=== PATIENT | female | born 1935 | race Caucasian/White ===

== ENCOUNTER → 2017-11-28 11:34 | Outpatient (CLI) | payer MEDICARE, OTHER, SELFPAY ==
[2017-11-28 13:33] LABS: Vitamin D,25 Hydroxy 46.7 ng/mL (29.95-100.01)
[2017-11-28 13:34] LABS: PTHIN 43.1 pg/mL (18.4-80.1)
[2017-11-28 13:38] LABS: ALB/GLOB Ratio 0.9 RATIO (0.9-2.4); AST(SGOT) 30 U/L (15-37); Alanine Aminotransfer ALT/SGPT 23 U/L (13-56); Albumin, Serum 3.2 g/dL (3.2-5.0); Alkaline Phosphatase 79 U/L (45-117); Anion Gap 6 (5-15); BUN 12 mg/dL (7-18); BUN/Creat Ratio 17.2 RATIO (10-20); Calcium,Total 9.1 mg/dL (8.5-10.1); Chloride 105 mmol/L (98-107); Cholesterol 234 mg/dL (200); EST Glomerular Filtration Rate 86 mL/min (>60); Est Glom Filt Rate - Afr Amer 104 mL/min (>60); Globulin 3.7 g/dL (2.2-4.2); Glucose 77 mg/dL (74-106); High Density Lipoprotein 58 mg/dL; Potassium 3.9 mmol/L (3.5-5.1); Protein, Total 6.9 g/dL (6.4-8.2); Sodium Level 143 mmol/L (136-145); Thyroid Stim Hormone (TSH) 1.35 uIU/mL (0.358-3.74); Triglycerides 243 mg/dL; Very Low Density Lipoprotein 49 mg/dL (5-40)
== END ==
PROVIDERS: Family Provider Family Medicine; PCP Family Medicine; Visit Provider Family Medicine
DX: E21.3 Hyperparathyroidism, unspecified (principal); E55.9 Vitamin D deficiency, unspecified; E78.5 Hyperlipidemia, unspecified; E03.9 Hypothyroidism, unspecified
CPT/HCPCS: 36415; 80053; 80061; 82306; 83970; 84443

== ENCOUNTER → 2018-04-25 10:45 | Outpatient (CLI) | payer MEDICARE, OTHER, SELFPAY ==
[2018-04-09 13:10] VITALS: BMI 34.0
--- NOTE | 2018-04-25 10:47 | ECHOCS_ITS ---
Reason For Study: CHF Procedure This was a 2D Doppler, Color Flow transthoracic echocardiogram. Techncially difficult study due to patient body habitus. Exam performed in department. Left Ventricle Normal LV size. Left ventricular systolic function is normal. The estimated ejection fraction is 65 %. Stage 1 diastolic dysfunction. No regional wall motion abnormalities noted. Right Ventricle Normal RV size. Normal systolic function. Atria Normal left atrium. Normal right atrium. Mitral Valve Normal mitral valve. Tricuspid Valve Normal tricuspid valve. Mild (1+) tricuspid valve insufficiency. Pulmonary artery systolic pressure is 42 mmHg. Aortic Valve Trisinus/trileaflet aortic valve. Peak aortic valve gradient 40 mmHg. Mean aortic valve gradient 21 mmHg. Mild to moderate aortic stenosis. Calculated aortic valve area (continuity equation) is 1.0 cm2. Bioprosthetic aortic valve. Pulmonic Valve Normal pulmonic valve. Great Vessels Normal aortic root. The pulmonary artery is normal size. Normal inferior vena cava. Pericardium/Pleural No pericardial effusion. Medication 22 gauge I.V. with prn adaptor inserted into right arm. Diluted definity 3ml given slow IV push to enhance endocardial definition. MMode/2D Measurements & Calculations LVIDd: 3.8 cm IVSd: 1.1 cm LVOT diam: 2.0 cm LVIDs: 2.8 cm LVPWd: 0.54 cm FS: 25.0 % LVOT area: 3.2 cm2 Ao root diam: 3.2 cm ACS: 1.0 cm Time Measurements MV dec time: 0.25 sec Doppler Measurements & Calculations MV E max gaudencio: 90.6 cm/sec Lat Peak E' Gaudencio: 5.1 cm/sec Med Peak E' Gaudencio: 5.7 cm/sec MV A max gaudencio: 109.2 cm/sec E/E' lat: 17.8 E/E' med: 15.8 MV E/A: 0.83 MV V2 max: 122.0 cm/sec MV P1/2t max gaudencio: 104.9 cm/sec Ao V2 max: 314.7 cm/sec MV max P.0 mmHg MV P1/2t: 76.3 msec Ao max P.6 mmHg MV V2 mean: 68.7 cm/sec Ao V2 mean: 216.0 cm/sec MV mean P.2 mmHg MV dec slope: 402.7 cm/sec2 Ao mean P.1 mmHg MV V2 VTI: 35.3 cm MVA(P1/2t): 2.9 cm2 Ao V2 VTI: 71.5 cm MVA(VTI): 2.2 cm2 VICTORIANO(I,D): 1.1 cm2 VICTORIANO(V,D): 1.0 cm2 LV V1 max: 100.3 cm/sec SV(LVOT): 76.3 ml PA V2 max: 74.9 cm/sec LV V1 max P.0 mmHg LV V1 mean P.9 mmHg LV V1 mean: 62.4 cm/sec LV V1 VTI: 23.8 cm TR max gaudencio: 305.6 cm/sec TR max P.7 mmHg Interpretation Summary Normal LV size. Left ventricular systolic function is normal. The estimated ejection fraction is 65 %. Stage 1 diastolic dysfunction. Mild (1+) tricuspid valve insufficiency. Bioprosthetic aortic valve. Mean aortic valve gradient 21 mmHg. Contrast injection was performed. Ordering Physician: Boyd Monsalve Referring Physician: Boyd Monsalve Performed By: Madan Montgomery RCS
== END ==
PROVIDERS: Family Provider Family Medicine; PCP Family Medicine; Referring Provider Internal Medicine Cardiovascular Disease; Visit Provider Internal Medicine Cardiovascular Disease
DX: Z98.890 Other specified postprocedural states (principal)
CPT/HCPCS: 93306; Q9957; A4216; C8929

== ENCOUNTER → 2018-05-23 10:59 | Outpatient (CLI) | payer MEDICARE, OTHER, SELFPAY ==
[2018-05-23 10:03] VITALS: BMI 32.0
[2018-05-23 12:39] LABS: Anion Gap 9 (5-15); BUN 15 mg/dL (7-18); BUN/Creat Ratio 18.4 RATIO (10-20); Calcium,Total 9.2 mg/dL (8.5-10.1); Chloride 101 mmol/L (98-107); Creatinine, Serum 0.82 mg/dL (0.55-1.02); EST Glomerular Filtration Rate 72 mL/min (>60); Est Glom Filt Rate - Afr Amer 87 mL/min (>60); Glucose 97 mg/dL (74-106); Potassium 3.5 mmol/L (3.5-5.1); Sodium Level 143 mmol/L (136-145)
== END ==
PROVIDERS: Family Provider Family Medicine; PCP Family Medicine; Referring Provider Nurse Practitioner Family; Visit Provider Nurse Practitioner Family
DX: I11.0 Hypertensive heart disease with heart failure (principal); I50.32 Chronic diastolic (congestive) heart failure; Z95.3 Presence of xenogenic heart valve
CPT/HCPCS: 36415; 80048

== ENCOUNTER → 2018-07-16 09:33 | Outpatient (CLI) | payer MEDICARE, OTHER, SELFPAY ==
[2018-05-23 10:03] VITALS: BMI 32.0
[2018-07-16 10:54] LABS: Anion Gap 5 (5-15); BUN 15 mg/dL (7-18); BUN/Creat Ratio 16.6 RATIO (10-20); Chloride 104 mmol/L (98-107); EST Glomerular Filtration Rate 64 mL/min (>60); Est Glom Filt Rate - Afr Amer 77 mL/min (>60); Glucose 118 mg/dL (74-106); Potassium 3.5 mmol/L (3.5-5.1); Sodium Level 141 mmol/L (136-145)
== END ==
PROVIDERS: Family Provider Family Medicine; PCP Family Medicine; Referring Provider Nurse Practitioner Family; Visit Provider Nurse Practitioner Family
DX: I11.0 Hypertensive heart disease with heart failure (principal); I50.30 Unspecified diastolic (congestive) heart failure; Z95.4 Presence of other heart-valve replacement
CPT/HCPCS: 36415; 80048

== ENCOUNTER → 2018-09-30 08:58 | Outpatient (CLI) | payer MEDICARE, OTHER, SELFPAY ==
[2018-05-23 10:03] VITALS: BMI 32.0
[2018-09-30 10:35] LABS: BUN 15 mg/dL (7-18); Creatinine, Serum 0.89 mg/dL (0.55-1.02); EST Glomerular Filtration Rate 65 mL/min (>60); Est Glom Filt Rate - Afr Amer 79 mL/min (>60)
== END ==
PROVIDERS: Family Provider Family Medicine; PCP Family Medicine; Referring Provider Otolaryngology; Visit Provider Otolaryngology
DX: H93.11 Tinnitus, right ear (principal)
CPT/HCPCS: 36415; 82565; 84520

== ENCOUNTER → 2018-10-04 12:06 | Outpatient (CLI) | payer MEDICARE, OTHER, SELFPAY ==
[2018-05-23 10:03] VITALS: BMI 32.0
--- NOTE | 2018-10-04 12:14 | MRI_ITS ---
STUDY: MRI BRAIN WITH AND WITHOUT CONTRAST (ATTENTION INTERNAL AUDITORY CANALS - I.A.C.'s) REASON FOR EXAM: Female, 83 years old. Dizziness and vertigo TECHNIQUE: Standardized multiplanar fat and water weighted pulse sequences were obtained. 15 IV Dotarem was administered for the contrast portion of the examination. COMPARISON: None. FINDINGS: Normal bilateral temporal bones. Normal bilateral internal auditory canals. There is no demonstrated intracanalicular or cisternal vestibular schwannoma (acoustic neuroma). There is no enhancement of the bilateral VIIth or VIIIth cranial nerves. Normal bilateral cochlea, vestibules and semicircular canals. Normal size of the ventricles and extra-axial spaces for the patient's age. Normal white matter tracts of the supratentorial brain. Normal bilateral basal ganglia. Normal thalami. Normal flow voids within the major intracranial circulation suggesting patency by spin echo criteria. Normal venous enhancement. There is no enhancing intra-axial or extra-axial abnormality. There is no extra-axial fluid accumulation. Normal sella turcica, pituitary gland, infundibular stalk, optic chiasm and hypothalamus. Normal tectal plate and pineal gland. 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 Normal cerebellum. Normal basal cisterns. Right lens replacement. Normal visualized paranasal sinuses. Normal calvarium and skull base. Normal visualized soft tissue structures. Normal visualized upper cervical spine. MRI/Brain W/WO Contrast IMPRESSION: Normal unenhanced and enhanced MRI of the bilateral internal auditory canals (I.A.C's). 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 Electronically Signed: Ethan Damon MD at 18:46 EDT Tel , Service support ,
== END ==
PROVIDERS: Family Provider Family Medicine; PCP Family Medicine; Referring Provider Otolaryngology; Visit Provider Otolaryngology
DX: H93.11 Tinnitus, right ear (principal)
CPT/HCPCS: 70553; A9575

== ENCOUNTER 2018-10-16 10:30 | Outpatient (RCR) | payer MEDICARE, OTHER, SELFPAY ==
[2018-05-23 10:03] VITALS: BMI 32.0
--- NOTE | 2018-08-23 14:52 | HP.PTEVAL_ITS ---
Patient's Visit Information JESSY DAIGLE is a 83 year old F referred to Physical Therapy by Koby Gutierres MD with a diagnosis of BPPV. Date of Evaluation: 08/23/18 Physical Therapist: PENG Bailey - Visit Plan Frequency: 2x /Week Duration: 4 Weeks Plan: Re-check R hallpike. May check L if symptoms do not resolve with R. 2X/ week for 4 weeks if needed for Eply manuver, testing of balance, Hep - Subjective Findings: Pt reports that Dr Gutierres thinks that her vertigo is there (she has been treated by Dr Aponte for BPPV before). SHe reports that she loses her balance when wax gets built up in her ears and as soon as they clean out her ears she is better until 6 months later. She had Polio (affected the L side). It seemed that her L leg would give and she would fall until after she had her son and that did not happen anymore until 20 years later her L leg would not lock. They always assumed it was Polio releated cause she had it 3 time (age [age] , and 10). 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 She has learned to compensate and knows what she has to watch. She did have trouble rolling onto her R side in bed before the Dr clears her ear out. cleaned her ears out yesterday and she feels 95% better today.... no dizziness.... no neck pain... and no neck pain. She has not tried to roll onto the R side cause she was afraid. She was taught Rene Daroff exercises. Currently she feels no symptoms. - Objective R Hallpike was positive for upward torsional nystagmus that lasted less than 20 seconds... Treated with the R EPLY....... Re-tested with R Hallpike with Positive upward torsional nystagmus with same intensity and lasting approx 15-20 seconds. Treated with R EPLY and tried to get pt farther into positions with avaibale neck ROM. Re-stested R Hallpike again: Was positive for upward torsional nystagmus that lastest less than 10 seconds with same intensity. Pt was tired after treament and opted not to work out today and wanted to try again next appointment. L Hallpike - Goals Goal 1:: I HEP Goal Time Frame: 2-4 Weeks Goal 2:: Abolish + Hallpike test Goal Time Frame: 2-4 Weeks Goal 3:: Be able to roll over in bed to the R without having dizziness Goal Time Frame: 2-4 Weeks - Rehabilitation Potential Rehabilitation Potential: Good - Anticipated Interventions Thank you for the opportunity to evaluate your patient. For Medicare and Medicare HMO plans, please review the plan of care and approve it. It will need to be FAXED BACK to us at [phone] for Medicare purposes. For Medicare only, by signing this I certify the plan of care. Please let me know if there are questions or concerns regarding this plan of care. Physician Signature: Date:
--- NOTE | 2018-12-24 13:38 | HP.PT.NRP ---
HP - Discharge Summary (1) - Patient Information JESSY DAIGLE was seen in my office for initial evaluation on 08/23/18. The following Plan of Care was established for this patient: Initial Frequency: 2x /Week Initial Duration: 4 Weeks This patient was last seen in our office 10/16/18. Pertinent comments regarding their Physical therapy will appear below: DC pt. Pt feels that she is better and that she as good as PT can help her at this point. She will continue to work through [facility] and see Dr at the end of December. At this point I will be discontinuing this patient from physical therapy. I would be happy to see this patient again in the future if found appropriate by the physician. Thank you! Maria Esther Winter, MPT
== END 2018-10-16 19:00 | disposition home or self-care (01) ==
LOC: PT 10:30
PROVIDERS: Family Provider Family Medicine; PCP Family Medicine; Referring Provider Otolaryngology; Visit Provider Otolaryngology
DX: H81.10 Benign paroxysmal vertigo, unspecified ear (principal)
CPT/HCPCS: 97162; 97530

== ENCOUNTER → 2018-12-10 09:24 | Outpatient (CLI) | payer MEDICARE, OTHER, SELFPAY ==
[2018-05-23 10:03] VITALS: BMI 32.0
[2018-12-10 11:22] LABS: ALB/GLOB Ratio 0.9 RATIO (0.9-2.4); AST(SGOT) 23 U/L (15-37); Alanine Aminotransfer ALT/SGPT 20 U/L (13-56); Albumin, Serum 3.3 g/dL (3.2-5.0); Alkaline Phosphatase 91 U/L (45-117); Anion Gap 6 (5-15); BUN 19 mg/dL (7-18); BUN/Creat Ratio 21.5 RATIO (10-20); Calcium,Total 9.1 mg/dL (8.5-10.1); Chloride 101 mmol/L (98-107); Creatinine, Serum 0.88 mg/dL (0.55-1.02); EST Glomerular Filtration Rate 65 mL/min (>60); Est Glom Filt Rate - Afr Amer 79 mL/min (>60); Globulin 3.7 g/dL (2.2-4.2); Glucose 95 mg/dL (74-106); Potassium 3.8 mmol/L (3.5-5.1); Sodium Level 141 mmol/L (136-145); Thyroid Stim Hormone (TSH) 1.79 uIU/mL (0.358-3.74)
== END ==
PROVIDERS: Family Provider Family Medicine; PCP Family Medicine; Referring Provider Family Medicine; Visit Provider Family Medicine
DX: E03.9 Hypothyroidism, unspecified (principal); E78.5 Hyperlipidemia, unspecified; I10 Essential (primary) hypertension
CPT/HCPCS: 36415; 80053; 84443

== ENCOUNTER → 2019-04-04 08:51 | Outpatient (CLI) | payer MEDICARE, OTHER, SELFPAY ==
[2018-12-12 08:44] VITALS: BMI 32.0
[2019-04-04 09:31] LABS: Base Excess 1 mmol/L (-2 to +2); Bicarbonate 25.4 mmol/L (22-26); Blood Gas Specimen Type ART; O2 Delivery Device Room Air; PO2 62 mmHG (75-100); SITE L Brachial; SO2 92 % (95-99); Total Carbon Dioxide 27 mmol/L; pCO2 39.2 mmHg (35-45); pH 7.42 (7.35-7.45)
== END ==
PROVIDERS: Family Provider Family Medicine; PCP Family Medicine; Referring Provider Internal Medicine Pulmonary Disease; Visit Provider Internal Medicine Pulmonary Disease
DX: G47.33 Obstructive sleep apnea (adult) (pediatric) (principal); R09.02 Hypoxemia
CPT/HCPCS: 36600; 82803

== ENCOUNTER 2019-06-30 11:35 | Inpatient (IN) | payer MEDICARE, OTHER, SELFPAY ==
[2019-06-24 08:12] VITALS: BMI 31.6
[2019-06-30] VITALS (9 sets, daily range): BP systolic 107–150; BP diastolic 46–91; PULSE 83–107; RESP 15–20; TEMP 36.6–37.2; O2SAT 92–95; BMI 33.3; BMI 31.4; BMI 31.5
[2019-06-30] MEDS: fentaNYL 100 MCG/2 ML Ampul 50 MCG IV (12:02)
--- NOTE | 2019-06-30 12:09 | ED.VIS.FALL ---
History of Present Illness Chief Complaint: Lower Extremity Injury Informant: Patient Occurred: Today Fall down steps #: Several Location: Left ankle Quality of Pain: Aching Current Severity: Mild Maximum Severity: Moderate Worsened by: Movement, trying to walk Relieved by: Remaining still Associated Symptoms: Loss of function, Inability to ambulate. 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 As result of this, she oftentimes falls to the left side. This occurred today while she was going down her basement steps. She fell forward and caught herself. She thought that she could get up and walk but when she tried she noticed that she had a left ankle injury. She was not in a lot of pain but was able to crawl along the floor to her phone call 911. She denies any other injury. She lives at home alone. - Past Medical History (1) Polio Status: Chronic (2) Chronic diastolic (congestive) heart failure Status: Chronic (3) Essential (primary) hypertension Status: Chronic (4) Non-rheumatic aortic stenosis Status: Chronic Comment: AVR 05/06/12 (5) Secondary pulmonary arterial hypertension Status: Chronic (6) History of aortic valve replacement with bioprosthetic valve Status: Resolved Comment: AVR with #[address] [facility] 05/06/12 Past Medical History - Allergies and Home Meds Allergies/Adverse Reactions: Allergies acetaminophen [From Vicodin] Allergy (Verified 06/30/19 11:36) Unknown aspirin Allergy (Verified 06/30/19 11:36) Unknown hydrocodone [From Vicodin] Allergy (Verified 06/30/19 11:36) Unknown niacin Allergy (Verified 06/30/19 11:36) Unknown simvastatin Allergy (Verified 06/30/19 11:36) Unknown Primary Care Physician: Jimbo Koch III, MD [Primary Care Provider] - Doctors: Dr. Monsalve cardiology Surgical History: - - AVR Lives: Alone Smoking Status: Never smoker Review of Systems General: Denies: Chills, Fever, Sweats Eyes: Denies: Visual changes - bilaterally, Diplopia ENT: Denies: Rhinorrhea, Sore throat Cardiovascular: Denies: Chest pain, Palpitations Respiratory: Denies: Dyspnea, Cough, Dyspnea on exertion Gastrointestinal: Denies: Abdominal pain, Nausea, Vomiting, Diarrhea, Melena, Hematochezia Genitourinary: Denies: Dysuria, Hematuria, Frequency Musculoskeletal: Reports: Extremity Pain. Denies: Neck pain, Back pain Skin: Reports: Abrasions. Denies: Rash, Wounds Neurological: Reports: Weakness. Denies: Headache, Numbness Physical Exam Vital Signs/Narrative: Vital Signs Temp Pulse Resp BP Pulse Ox 06/30/19 11:36 98.9 F 88 16 150/91 H 95 Inital Vital Signs reviewed: Yes General: Well nourished, Well developed Head: Normocephalic, Atraumatic Eyes: Perrl, EOMI ENT: No trauma. Negative for: Nasal trauma Neck: Nontender, Full ROM Cardiovascular: Regular rate, Regular rhythm, No murmurs Respiratory: No distress, CTA bilaterally, Chest nontender Abdomen: Soft, Nontender, Nondistended, Normal bowel sounds Back: Nontender Extremeties: Left ankle deformity with tenting of the skin anteriorly by the medial malleolus. Her patella is pointing up and her knee is in full extension. Her toes are externally rotated to the side. Her foot is nontender. Her ankle is tender. There is an abrasion over the anterior aspect of the medial malleolus, but no laceration or exposed bone. Her toes are cyanotic, I am not able to feel the pulses but her cap refill is approximately 4 seconds. Skin: Normal color, No rash Neurological: Alert, Oriented x3, Cranial nerves II-XII grossly intact, Normal Sensation, Weakness - Left upper and lower extremities. Able to move them okay, except for the left ankle. Psychological: Normal affect, Normal Mood Diagnostic/Tx/Re-eval Clinical Impression(s) from Imaging Studies Ankle X-Ray 06/30/19 12:46 IMPRESSION: Oblique fracture of the distal fibula extending to the lateral malleolus as well as an avulsion fracture of the posterior tibial plateau. Disruption of the ankle mortise. Soft tissue swelling. Electronically Signed: Robert Berger, at 13:11 EST , Service support , Ankle X-Ray 06/30/19 15:00 IMPRESSION: Satisfactory reduction with residual asymmetry of the ankle mortise. Soft tissue swelling. Electronically Signed: Robert Berger, at 15:27 EST , Service support , - Medical Decision Making Upon initial examination, patient's toes were cyanotic, she had a delayed cap refill, with an obvious deformity and tenting at the medial malleolus. Furthermore, the patient had eaten breakfast only a couple hours ago. Therefore we performed quick informed consent concerning close reduction prior to getting x-ray which she was amenable to, with pretreatment with fentanyl 50 mcg which was done. Reduction was performed fairly easily and I felt good mechanical feedback. This resulted in brisk cap refill, 2+/4 dorsalis pedis pulse and resolution of the cyanosis and it felt much better. X-rays were then obtained, it shows the aforementioned bimalleolar fracture along with persistent subluxation of the talus posteriorly. This was further reduced during splinting after those x-rays, and post reduction x-rays again were obtained. They show good reduction relatively. There is still a lateral talar shift which is to be expected given this injury. Family is requesting Dr. De Luna who was not on-call for unassigned patients today, discussed with Patel Kwon who spoke with her, she can consult in the hospital tomorrow. I discussed with family, they are not available to care for her at home and have somebody there 11/12, they agree that admission would be most reasonable given her condition and fracture/dislocation that must be nonweightbearing at this time. Labs and preoperative EKG/chest x-ray ordered. Procedures Procedure(s): Closed reduction left ankle. --After informed consent and fentanyl 50 mcg, I manually reduced the left ankle with very little difficulty, reproducing the mechanism initially. Patient tolerated extremely well. Cyanosis of the toes resolved, tenting resolved, deformity resolved, dorsalis pedis pulse 2+/4. Postreduction x-rays show persistent subluxation of the talus posteriorly. Splinting and repeat closed reduction. --While splinting, I reduced the foot anteriorly into the ankle mortise. Posterior and sugar tong short leg Ortho-Glass splint was placed. She is neurovascularly intact distally afterwards. Postreduction x-rays show good reduction of the subluxation. ED Disposition - Plan for ED Patient: Disposition: Acute Care Hospital [facility] Diagnosis: Closed fracture dislocation of left ankle joint Referrals: Jimbo Koch III, MD [Primary Care Provider] -
--- NOTE | 2019-06-30 12:46 | RAD_ITS ---
STUDY: X-RAY - LEFT ANKLE REASON FOR EXAM: Female, 84 years old. PAIN LEFT ANKLE. PATIENT MISSED LAST STEP AND TWISTED LEFT ANKLE. TECHNIQUE: 3 view(s) of the ankle. COMPARISON: None. FINDINGS: Oblique fracture of the distal fibula involving the lateral malleolus. Avulsion fracture of the posterior tibial plateau. Disruption of the ankle mortise. Normal visualized talus and calcaneus. The visualized subtalar, talonavicular, calcaneocuboid and tarsal articulations are normal. Soft tissue swelling. RAD/Ankle min 3 Views IMPRESSION: Oblique fracture of the distal fibula extending to the lateral malleolus as well as an avulsion fracture of the posterior tibial plateau. Disruption of the ankle mortise. Soft tissue swelling. Electronically Signed: Robert Berger, at 13:11 EST , Service support ,
--- NOTE | 2019-06-30 15:00 | RAD_ITS ---
STUDY: X-RAY - LEFT ANKLE REASON FOR EXAM: Female, 84 years old. POST REDUCTION LEFT ANKLE. TECHNIQUE: AP and lateral view(s) of the ankle. COMPARISON: Comparison is made with prior examination done earlier in the day. FINDINGS: Satisfactory reduction of the oblique fracture of the distal fibula. Residual asymmetry of the ankle mortise. Soft tissue swelling. RAD/Ankle 2 Views IMPRESSION: Satisfactory reduction with residual asymmetry of the ankle mortise. Soft tissue swelling. Electronically Signed: Robert Berger, at 15:27 EST , Service support ,
--- NOTE | 2019-06-30 15:39 | EKG12_ITS ---
Test Reason : FELL Blood Pressure : / mmHG Vent. Rate : 108 BPM Atrial Rate : 108 BPM P-R Int : 224 ms QRS Dur : 102 ms QT Int : 326 ms P-R-T Axes : 005 -18 115 degrees QTc Int : 436 ms Sinus tachycardia with 1st degree A-V block with frequent and consecutive Premature ventricular compl exes Nonspecific ST and T wave abnormality Abnormal ECG Confirmed by ALEXANDRU WINTERS, LUX ([id number]), editor managing newspaper BRAN NAYLOR ([id number]) on 07/02/2019 9:50:31 AM Referred By: JENNIE Confirmed By:LUX HORVATH MD
--- NOTE | 2019-06-30 15:43 | RAD_ITS ---
STUDY: X-RAY CHEST REASON FOR EXAM: Female, 84 years old. PRE OP FOR ANKLE FRACTURE; -- H/O HEART VALVE REPLACEMENT; -- BREATHING DEFICIT - POLIO TECHNIQUE: Single AP portable view of the chest. COMPARISON: Comparison is made with prior examination dated October 10, 2012. FINDINGS: EKG electrodes are seen. There is evidence of a large hiatal hernia. Mild increased markings at the lung bases suggestive of scarring. There is blunting of both costophrenic angles most likely chronic in nature. Sternal cerclage wires and vascular clips are present from a prior sternotomy and coronary artery bypass graft procedure (CABG). Normal mediastinum and dawson. Normal visualized pulmonary arteries. Normal visualized aortic arch and descending thoracic aorta. Normal visualized thoracic spine. Multiple healed right rib fractures. There is no demonstrated abnormality of the visualized soft tissue structures of the upper abdomen. RAD/Chest 1 View (Portable) IMPRESSION: Large hiatal hernia. Mild degree of increased markings at the lung bases suggestive of scarring with blunting of both costophrenic angles. Electronically Signed: Robert Berger, at 16:02 EST , Service support ,
--- NOTE | 2019-06-30 15:43 | HP.PCM_ITS ---
History of Present Illness Date of Admission: 06/30/19 Chief Complaint: mechanical fall, left ankle pain The patient is a 84 year old F with an extensive past medical history as outlined. She was admitted through the ED on 06/30/2019 with a complaint of mechanical fall. Patient states she was going down her basement steps and as she nearly got to the bottom, she tripped and fell. She experienced sudden severe pain in her left ankle and noted that it appeared dislocated. She was able to crawl over to a phone and call 911 and was brought in by the squad. She denied any lightheadedness or dizziness prior to the fall and denied any chest pain, palpitations, abdominal pain, diarrhea vomiting. She does have a history of polio and states she has residual mild left-sided weakness and has had occasional falls in the past because of this. In the ED, she was noted to have left ankle deformity with cyanotic toes. X-rays done showed oblique fracture of the distal fibula of the left ankle extending to the lateral malleolus as well as an avulsion fracture of the posterior tibial plateau and disruption of the ankle mortise with soft tissue swelling. She has satisfactory reduction of the left ankle fracture in the ED. and family requested that the Dr. De Luna be consulted. She has been admitted to be managed for left ankle fracture due to mechanical fall. [] Past Medical History Past Medical History (Chronic Problems): Chronic Problems (Last Reviewed 06/24/19 @ 11:05 by JOLIE VillaltaC) Polio (Chronic) Secondary pulmonary arterial hypertension (Chronic) Chronic diastolic (congestive) heart failure (Chronic) Essential (primary) hypertension (Chronic) Non-rheumatic aortic stenosis (Chronic) AVR 05/06/12 Medical History: Medical History (Last Reviewed 06/24/19 @ 11:05 by JOLIE VillaltaC) Secondary pulmonary arterial hypertension (Chronic) I27.21 Chronic diastolic (congestive) heart failure (Chronic) I50.32 Essential (primary) hypertension (Chronic) I10 Non-rheumatic aortic stenosis (Chronic) I35.0 AVR 05/06/12 Hypothyroidism E03.9 Obesity E66.9 Obstructive sleep apnea G47.33 Vertigo R42 Allergies acetaminophen [From Vicodin] Allergy (Verified 06/30/19 11:36) Unknown aspirin Allergy (Verified 06/30/19 11:36) Unknown hydrocodone [From Vicodin] Allergy (Verified 06/30/19 11:36) Unknown niacin Allergy (Verified 06/30/19 11:36) Unknown simvastatin Allergy (Verified 06/30/19 11:36) Unknown Home Medications: Ambulatory Orders Medication Instructions Recorded Calcium Carbonate/Vitamin D3 1 tab PO DAILY 06/30/19 [Calcium 600-Vit D3 800 Tablet] Cholecalciferol (VIT D3) [Vitamin 1,000 unit PO DAILY 06/30/19 D] Furosemide [Lasix] 40 mg PO BID 06/30/19 Levothyroxine [Synthroid] 75 mcg PO DAILY 06/30/19 Metoprolol Succinate 25 mg PO DAILY 06/30/19 Multivitamin with Minerals [One 1 tab PO DAILY 06/30/19 Daily Plus Minerals] [place]arl-3 Fatty Acids [Fish Oil] 2 tab PO DAILY 06/30/19 Potassium Chloride [K-Dur] 10 meq PO BID 06/30/19 Psyllium [Metamucil] 1 packet PO DAILY 06/30/19 Surgical History: Surgical History (Last Reviewed 06/24/19 @ 11:05 by Conrad Green ARTISTIC ASSOCIATE-C) History of aortic valve replacement with bioprosthetic valve (Resolved) Onset Date: 05/06/12 Z95.4 AVR with #21 [facility] 05/06/12 History of parathyroidectomy Z98.890 History of right and left heart catheterization Onset Date: 09/01/11 Z98.890 History of tonsillectomy and adenoidectomy Z98.890 Hx of cholecystectomy Z90.49 H/O breast biopsy (Inactive) Z98.890 H/O colonoscopy (Inactive) Z98.890 Surgical History: - - AVR Lives: Alone Smoking Status: Never smoker Alcohol: Occasional Drugs: None Review of Systems Constitutional: Denies: Chills, Fever, Malaise, Weakness, Weight Change Eyes: Denies: Blurred vision HEENT: Denies: Head Aches, Sinus Congestion, Sinus Drainage Cardiovascular: Denies: Chest Pain, Palpitations Respiratory: Denies: Cough, Shortness of Breath, Shortness of breath at rest, Shortness of breath upon exertion, Sputum production Gastrointestinal: Denies: Abdominal Pain, Nausea, Vomiting Genitourinary: Denies: Dysuria Musculoskeletal: Reports: Joint Pain - ankle pain, swelling and tenderness, Joint swelling, Joint Tenderness. Denies: Arm Pain, Foot Pain, Hand Pain, Neck Pain Skin: Denies: Rash, Wounds Neurological: Denies: Numbness, Tingling, Focal weakness Psychiatric: Denies: Anxiety, Depression, Homicidal Ideations, Suicidal Ideations Hematologic/ Lymphatic: Denies: Easy Bruising, Easy Bleeding VTE Information - Inpt Only VTE Present on Admission: No VTE Pharm Prophylaxis ordered?: Yes Patient Problems: Active and Suspected Problems (Last Reviewed 06/24/19 @ 11:05 by MILLICENT Villalta) Closed fracture dislocation of left ankle joint (Acute) - Physical Exam Vitals/I&O's: Vital Signs Temp Pulse Resp BP Pulse Ox 98.9 F 99 15 107/69 93 06/30/19 11:36 06/30/19 15:00 06/30/19 15:00 06/30/19 15:00 06/30/19 15:00 Oxygen Delivery Method Room Air Weight: 182 lb Body Mass Index (BMI) 33.3 General: Alert, Oriented x3, Cooperative, No apparent distress HEENT: Atraumatic, PERRLA, EOMI, Normocephalic Oral: Moist Mucosa Neck: Supple, No JVD, Negative Carotid Bruits Lungs: Clear to auscultation, Normal air movement, No rhonchi, No wheeze, No rales Cardiovascular: Regular Rhythm, Normal S1, Normal S2, Tachycardic, - - aortic valve click Abdomen: Bowel Sounds Present, Soft, Non Tender, Non-Distended, No Hepato- splenomegaly Extremities: No clubbing, No cyanosis, No edema, Capillary Refill Less than 3 Seconds Skin: No rashes, No breakdown Musculoskeletal: - - left ankle bandaged, able to wiggle toes. Left toes are cyanotic Lymphatic: No Cervical, Supraclavicular, or Inguinal Adenopathy Neurological: Cranial nerves II-XII grossly intact Psych/Mental Status: Normal Affect, Appropriate, Alert and oriented to time, place, person, mood and affect Assessment/Plan All Active Problems (Last Reviewed 06/24/19 @ 11:05 by JOLIE VillaltaC) Closed fracture dislocation of left ankle joint (Acute) History of aortic valve replacement with bioprosthetic valve (Resolved 05/06/12) 84 y/o admitted with a complaint of left ankle pain after mechanical fall 1. Left ankle fracture due to mechanical fall * s/p reduction in ED * fell down her basement steps * admit to Med Surg with telemetry * xrays showed satisfactory reduction with residual asymmetry of the ankle mortise, as well as soft tissue swelling * check CBC and BMP * EKD: sinus tachycardia with 1st degreee AV block with frequent and consecutive PVCs,a nd nonspecific ST and T wave abnormalities * orthopedic surgery consulted from ED; ED doctor spoke to FRANCESCO Mckeon for Dr De Luna. Dr De Luna to see tomorrow * fall precautions * IV morphine prn, PO tylenol for pain * PT/OT consult * consult cardiology for cardiac risk stratification in light of history of valve replacement; consult pulmonology in light of history of ANDRY, she also had hypoxia during her heart surgery and so is now on BiPAP as well as oxygen at home at night. * NSQIP risk of serious complication is 4.5%, with risk of any complication of 5.3%. * 2. Debility due to mechanical fall: As under 1. 3. ANDRY: * On BiPAP 14/18 at night as well as 2 L of oxygen. * Consult pulmonology for pulmonary clearance as she is going to have surgery. * continue BIPAP qhs at [id number], with 2L of oxygen * 4. Heart failure with preserved ejection fraction: * On Lasix. * Last echo (04/25/2018): EF of 65% with stage I diastolic dysfunction and no regional wall motion abnormalities noted. Mild to moderate aortic stenosis and calculated aortic valve area of 1 cm? with bioprosthetic aortic valve. * 5. Nonrheumatic aortic valve stenosis * status post aortic valve replacement in 2011 * Stable. Has a bovine valve. Does not require anticoagulation. 6. Pulmonary arterial hypertension: Secondary likely due to heart failure. 8. Hypothyroidism and hypoparathyroidism: On Synthroid as well as calcium supplementation DVT prophylaxis: Lovenox CODE STATUS: Full code * Patient and son counseled extensively about different types of CODE STATUS including full code, DNR CCA and DNR CCA. Patient elects to be full code. Total mugd-go-[id number] time 17 minutes. Code Visit Inpatient E&M: 53248 Init Hosp L3 Procedures: 00281 Advncd Care Plan 30 Min
[2019-06-30 16:57] LABS: Basophil# 0.06 X10^3/uL; Basophil% 0.6 % (0-1); Eosinophil# 0.05 X10^3/uL; Eosinophils% 0.5 % (0-5); Hematocrit 41.2 % (37-47); Hemoglobin 13.3 g/dL (12.0-15.0); Lymphocyte % 17.8 % (19-41); Mean Corp Hgb Conc 32.3 g/dL (32-36); Mean Corpuscular Hgb 31.7 pg (27.0-32.0); Mean Corpuscular Volume 98.3 fL (81-99); Mean Platelet Vol. 9.8 fl (6.2-12.0); Monocyte# 0.71 X10^3/uL; Monocyte% 7.4 % (0-10); NRBC Flagged by Analyzer 0 % (0-5); Neutrophil # 7.02 X10^3/uL (2.7-7.7); Neutrophil % 73.4 % (47-70); Platelet Count 238 K/mm3 (150-450); RBC Distribution Width CV 13.1 % (11.6-14.6); Red Blood Count 4.19 M/mm3 (4.2-5.4); White Blood Count 9.6 K/mm3 (4.4-11.0)
[2019-06-30 17:08] LABS: Anion Gap 6 (5-15); BUN 12 mg/dL (7-18); BUN/Creat Ratio 13.4 RATIO (10-20); Calcium,Total 9.4 mg/dL (8.5-10.1); Chloride 105 mmol/L (98-107); Creatinine, Serum 0.89 mg/dL (0.55-1.02); EST Glomerular Filtration Rate 64 mL/min (>60); Est Glom Filt Rate - Afr Amer 78 mL/min (>60); Estimated Creatinine Clearance 38.54 ml/min; Glucose 105 mg/dL (74-106); Magnesium 2.1 mg/dL (1.6-2.6); Potassium 3.3 mmol/L (3.5-5.1); Sodium Level 143 mmol/L (136-145)
--- NOTE | 2019-06-30 17:08 | CON.PCM_ITS ---
Reason for Consult Date of Consultation: 06/30/19 Reason for Consultation: Preop evaluation History of Present Illness: The patient is a 84 year old F who presented to the emergency room after she sustained a fall. She was going down the stairs with her lisette litter and at the last but 1 step she apparently tripped and fell. She was able to call the emergency room services and was brought to the emergency room. She was noted to have a dislocated and possible fractured ankle. She does have a cardiac history with a number [address] [facility] pericardial bioprosthetic valve placed in April 2013. She also has a history of diastolic heart failure and hypertension. Due to the above as well as a cardiac risk cardiology was called to assist in management. She was recently seen in the office last week and at that time denied any palpitations, lightheadedness, dizziness, near syncope or syncope. She also denies any orthopnea paroxysmal nocturnal dyspnea or pedal edema. She has had some shortness of breath with exertion which has been attributable to pulmonary issues. [] Past Medical History Allergies/Adverse Reactions: Allergies aspirin Allergy (Verified 06/30/19 16:44) made my blood too thin hydrocodone [From Vicodin] Allergy (Verified 06/30/19 11:36) Unknown niacin Adverse Reaction (Verified 06/30/19 17:10) severe sweating simvastatin Adverse Reaction (Verified 06/30/19 17:10) muscle aches Home Medications: Ambulatory Orders Medication Instructions Recorded Calcium Carbonate/Vitamin D3 1 tab PO DAILY 06/30/19 [Calcium 600-Vit D3 800 Tablet] Cholecalciferol (VIT D3) [Vitamin 1,000 unit PO DAILY 06/30/19 D] Furosemide [Lasix] 40 mg PO BID 06/30/19 Levothyroxine [Synthroid] 75 mcg PO DAILY 06/30/19 Metoprolol Succinate 25 mg PO DAILY 06/30/19 Multivitamin with Minerals [One 1 tab PO DAILY 06/30/19 Daily Plus Minerals] Wing-3 Fatty Acids [Fish Oil] 2 tab PO DAILY 06/30/19 Potassium Chloride [K-Dur] 10 meq PO BID 06/30/19 Psyllium [Metamucil] 1 packet PO DAILY 06/30/19 Past Medical History (Chronic Problems): Chronic Problems (Last Reviewed 06/24/19 @ 11:05 by Conrad H Roof, RESIN COATER-C) Polio (Chronic) Secondary pulmonary arterial hypertension (Chronic) Chronic diastolic (congestive) heart failure (Chronic) Essential (primary) hypertension (Chronic) Non-rheumatic aortic stenosis (Chronic) AVR 05/06/12 Surgical History: - - AVR Lives: Alone Smoking Status: Never smoker Tobacco Use: Non-smoker Alcohol: Occasional Drugs: None Review of Systems - Review of Systems General: Denies: Fever, Night Sweats, Fatigue HEENT: Denies: Vision Change Cardiovascular: Denies: Chest Discomfort, Shortness of Breath, Orthopnea, PND, Peripheral Edema, Palpitations, Lightheadedness, Dizziness, Near Syncope, Syncope Respiratory: Denies: Cough, Sputum Production, Hemoptysis Gastrointestinal: Denies: Hematemesis, Hematochezia, Melena Genitourinary: Denies: Dysuria, Hematuria Muscoloskeletal: Reports: Foot Pain Skin: Denies: Rash Neurological: Denies: Dizziness Psychiatric: Denies: Anxiety Endocrine: Denies: Heat Intolerance Hematologic/ Lymphatic: Reports: Lymph Node Enlargement Subjectve: Pleasant lady in no distress Objective: Vital Signs Temp Pulse Resp BP Pulse Ox 97.8 F 83 16 122/63 H 92 06/30/19 16:48 06/30/19 16:48 06/30/19 16:48 06/30/19 16:48 06/30/19 16:48 Oxygen Delivery Method Room Air Weight: 172 lb Body Mass Index (BMI) 31.4 General: Awake, Alert, Oriented x 3 HEENT: PERRL, EOMI, Sclera Non Icteric Neck: Supple, Good ROM, No Lymph Node Enlargement Lungs: Clear to auscultation Cardiovascular: Regular Rhythm, Normal S1, Normal S2, No Rubs, No Gallops Murmur Murmur: Grade 2/6, Early Systolic, LLSB Vascular: No Carotid Bruits, Normal Femoral Pulses, Normal Radial Pulses, Normal Dorsalis Pedal Pulse, Normal Posterior Tibial Pulses Abdomen: Bowel Sounds Present, Soft, Non Tender, No HSM, No Organomegaly Extremities: No Cyanosis, No Clubbing, No edema Musculoskeletal: No Erythema Skin: No Rashes Lymphatic: No Lymph Node Enlargement Neurological: No Focal Motor or Sensory Deficit Psych/Mental Status: Appropriate 06/30/19 16:44: WBC 9.6, RBC 4.19 L, Hgb 13.3, Hct 41.2, MCV 98.3, MCH 31.7, MCHC 32.3, Plt Count 238, MPV 9.8, Immature Gran % (Auto) 0.300, Neut % (Auto) 73.4 H, Lymph % (Auto) 17.8 L, [place] % (Auto) 7.4, Eos % (Auto) 0.5, Baso % (Auto) 0.6, Absolute Neuts (auto) 7.0, Nucleated RBC % 0 06/30/19 16:44: Sodium 143, Potassium 3.3 L, Chloride 105, Carbon Dioxide 32.0, Anion Gap 6, BUN 12, Creatinine 0.89, Est GFR (MDRD) Af Amer 78, Est GFR (MDRD) Non-Af 64, BUN/Creatinine Ratio 13.4, Glucose 105, Calcium 9.4, Magnesium 2.1 Rhythm: EKG: ECHO: Stress Test: Cardiac Cath: PCI: CT Surgery: Holter monitor: EPS: PPM: CXR: Chest CT Scan: Assessment/Plan 1. Preoperative cardiac evaluation. * Patient has a history of hypertension as well as a stable bioprosthetic aortic valve replacement. She has been stable from the cardiovascular standpoint. At this time I would not recommend any further cardiovascular work-up. * Would recommend continuing current medications up to and including the morning of surgery. * Would recommend telemetry monitoring which can be done on the third floor for 24 hours post surgery. * 2. Status post aortic valve replacement * Echocardiogram done within the last 2 years demonstrates stability of the aortic valve and preserved left ventricular ejection fraction. * Would not recommend any changes in therapy. * 3. Hypertension * Good control continue current medical therapy. * * 4. Heart failure with preserved ejection fraction: * On Lasix which will be continued. * Last echo (04/25/2018): EF of 65% with stage I diastolic dysfunction and no re gional wall motion abnormalities noted. Mild to moderate aortic stenosis and calculated aortic valve area of 1 cm? with bioprosthetic aortic valve. * * Thank you for allowing me to participate in the care of your patient. Please don't hesitate to call if any issues arise
[2019-06-30] MEDS: Morphine 2 MG/ML Syringe IV ×2 (19:57→23:00)
[2019-06-30] MEDS: Furosemide 40 MG Tablet PO (19:58)
[2019-06-30] MEDS: 0.9% Saline Lock 10 ML Syringe IV (20:02)
[2019-06-30] MEDS: oxyCODONE 5 MG Tablet PO (21:07)
[2019-07-01] VITALS (16 sets, daily range): BP systolic 114–144; BP diastolic 50–71; PULSE 68–100; RESP 12–36; TEMP 36.3–37.1; O2SAT 92–98
[2019-07-01] MEDS: oxyCODONE 5 MG Tablet PO ×3 (01:01→15:52)
[2019-07-01] MEDS: Levothyroxine 75 MCG Tablet PO (06:22)
[2019-07-01 07:30] LABS: Absolute Lymphocyte Count 1.65 X10^3/uL (0.83-4.51); Absolute Neutrophil Count 4.8 X10^3/uL (2.0-7.7); Basophil# 0.03 X10^3/uL; Basophil% 0.4 % (0-1); Eosinophil# 0.03 X10^3/uL; Eosinophils% 0.4 % (0-5); Hematocrit 38.4 % (37-47); Hemoglobin 12.2 g/dL (12.0-15.0); Lymphocyte # 1.65 X10^3/ul (4.0); Lymphocyte % 23.3 % (19-41); Mean Corp Hgb Conc 31.8 g/dL (32-36); Mean Corpuscular Hgb 31.2 pg (27.0-32.0); Mean Corpuscular Volume 98.2 fL (81-99); Mean Platelet Vol. 9.6 fl (6.2-12.0); Monocyte# 0.57 X10^3/uL; Monocyte% 8.1 % (0-10); NRBC Flagged by Analyzer 0 % (0-5); Neutrophil # 4.79 X10^3/uL (2.7-7.7); Neutrophil % 67.7 % (47-70); Platelet Count 204 K/mm3 (150-450); RBC Distribution Width CV 13.2 % (11.6-14.6); RBC Distribution Width SD 47.2 fl (35.1-43.9); Red Blood Count 3.91 M/mm3 (4.2-5.4); White Blood Count 7.1 K/mm3 (4.4-11.0)
--- NOTE | 2019-07-01 07:53 | CON.PCM_ITS ---
Reason for Consult Date of Consultation: 07/01/19 Reason for Consultation: Preoperative pulmonary evaluation History of Present Illness: The patient is an 84-year-old female, with a history as outlined below, who presented to the emergency department on June 30 after having experienced a mechanical fall in her home environment. The patient sustained an oblique fracture of the distal fibula as well as an avulsion fracture of the posterior tibial plateau. The patient was referred to undergo orthopedic surgical intervention. However, prior to surgery, I was asked to evaluate the patient regarding her history of obstructive sleep apnea. The patient is currently followed by Dr. Paul on an outpatient basis due to a patient reported history of rather severe ANDRY. She underwent a re-titration polysomnogram within the last 6 months and is reportedly prescribed nocturnal bilevel with a pressure support of 18/14 centimeters of water with a 2 L/min supplemental oxygen bleed in. She does report compliance with its use and utilizes a full facemask. She does not have a baseline supplemental oxygen requirement. She is a lifelong non-smoker. She has never been diagnosed with obstructive lung disease or asthma in the past. She does not utilize inhalers in her home environment. Past Medical History Past Medical History (Chronic Problems): Chronic Problems (Last Reviewed 06/24/19 @ 11:05 by MILLICENT Villalta) Polio (Chronic) Secondary pulmonary arterial hypertension (Chronic) Chronic diastolic (congestive) heart failure (Chronic) Essential (primary) hypertension (Chronic) Non-rheumatic aortic stenosis (Chronic) AVR 05/06/12 Medical History: Medical History (Last Reviewed 06/24/19 @ 11:05 by MILLICENT Villalta) Secondary pulmonary arterial hypertension (Chronic) I27.21 Chronic diastolic (congestive) heart failure (Chronic) I50.32 Essential (primary) hypertension (Chronic) I10 Non-rheumatic aortic stenosis (Chronic) I35.0 AVR 05/06/12 Hypothyroidism E03.9 Obesity E66.9 Obstructive sleep apnea G47.33 Vertigo R42 Allergies aspirin Allergy (Verified 06/30/19 16:44) made my blood too thin hydrocodone [From Vicodin] Allergy (Verified 06/30/19 11:36) Unknown niacin Adverse Reaction (Verified 06/30/19 17:10) severe sweating simvastatin Adverse Reaction (Verified 06/30/19 17:10) muscle aches Home Medications: Ambulatory Orders Medication Instructions Recorded Calcium Carbonate/Vitamin D3 1 tab PO DAILY 06/30/19 [Calcium 600-Vit D3 800 Tablet] Cholecalciferol (VIT D3) [Vitamin 1,000 unit PO DAILY 06/30/19 D] Furosemide [Lasix] 40 mg PO BID 06/30/19 Levothyroxine [Synthroid] 75 mcg PO DAILY 06/30/19 Metoprolol Succinate 25 mg PO DAILY 06/30/19 Multivitamin with Minerals [One 1 tab PO DAILY 06/30/19 Daily Plus Minerals] [place]-3 Fatty Acids [Fish Oil] 2 tab PO DAILY 06/30/19 Potassium Chloride [K-Dur] 10 meq PO BID 06/30/19 Psyllium [Metamucil] 1 packet PO DAILY 06/30/19 Surgical History: Surgical History (Last Reviewed 06/24/19 @ 11:05 by MILLICENT Villalta) History of aortic valve replacement with bioprosthetic valve (Resolved) Onset Date: 05/06/12 Z95.4 AVR with #[facility] 05/06/12 History of parathyroidectomy Z98.890 History of right and left heart catheterization Onset Date: 09/01/11 Z98.890 History of tonsillectomy and adenoidectomy Z98.890 Hx of cholecystectomy Z90.49 H/O breast biopsy (Inactive) Z98.890 H/O colonoscopy (Inactive) Z98.890 Surgical History: - - AVR Lives: Alone Smoking Status: Never smoker Tobacco Use: Non-smoker Alcohol: Occasional Drugs: None Review of Systems Constitutional: Denies: Chills, Fever, Weight Change HEENT: Denies: Head Aches, Sinus Congestion, Sinus Drainage Cardiovascular: Denies: Chest Pain, Palpitations Respiratory: Denies: Cough, Shortness of breath at rest, Sputum production Gastrointestinal: Denies: Abdominal Pain, Nausea, Vomiting Genitourinary: Denies: Dysuria Musculoskeletal: Reports: Joint Pain, Joint swelling Skin: Denies: Rash, Wounds Neurological: Denies: Numbness, Tingling, Focal weakness Psychiatric: Denies: Anxiety, Depression, Homicidal Ideations, Suicidal Ideations Hematologic/ Lymphatic: Denies: Easy Bruising, Easy Bleeding Patient Problems: Active and Suspected Problems (Last Reviewed 06/24/19 @ 11:05 by JOLIE VillaltaC) Closed fracture dislocation of left ankle joint (Acute) Objective: The patient's most recent lab work, culture data and imaging studies have all been personally reviewed. - Physical Exam Vitals/I&O's: Vital Signs Temp Pulse Resp BP Pulse Ox 98.2 F 74 16 115/71 94 07/01/19 04:00 07/01/19 04:09 07/01/19 04:00 07/01/19 04:00 07/01/19 04:00 Oxygen Flow Rate (L/min) 2 Oxygen Delivery Method Nasal Cannula Weight: 172 lb Body Mass Index (BMI) 31.4 Intake and Output for Last 24 Hours 06/29/19 06/30/19 07/01/19 23:59 23:59 23:59 Intake Total 500 / 500 Output Total 550 / 550 Balance -50 / -50 General: Alert, Oriented x3, Cooperative, No apparent distress HEENT: Atraumatic, Normocephalic Oral: No Gingival or Mucosal Lesions/ Ulcerations Neck: Supple, No Nodes, Trachea Midline Lungs: Normal air movement, No rhonchi, No wheeze, No rales Cardiovascular: Regular rate, Regular Rhythm, Normal S1, Normal S2, Murmur Abdomen: Bowel Sounds Present, Soft, Non Tender Extremities: No clubbing, No edema, - - Distal left lower extremity is wrapped with dusky appearing toes. Skin: No breakdown Musculoskeletal: No Muscle Wasting Lymphatic: No Cervical, Supraclavicular, or Inguinal Adenopathy Neurological: Cranial nerves II-XII grossly intact, Neuro grossly intact Psych/Mental Status: Alert and oriented to time, place, person, mood and affect Labs (Last 48 Hours) 06/30/19 06/30/19 07/01/19 16:44 16:44 07:18 WBC 9.6 7.1 RBC 4.19 L 3.91 L Hgb 13.3 12.2 Hct 41.2 38.4 MCV 98.3 98.2 MCH 31.7 31.2 MCHC 32.3 31.8 L RDW Std Deviation 47.0 H 47.2 H RDW Coeff of Junior 13.1 13.2 Plt Count 238 204 MPV 9.8 9.6 Immature Gran % (Auto) 0.300 0.100 Neut % (Auto) 73.4 H 67.7 Lymph % (Auto) 17.8 L 23.3 [place] % (Auto) 7.4 8.1 Eos % (Auto) 0.5 0.4 Baso % (Auto) 0.6 0.4 Absolute Neuts (auto) 7.0 4.8 Absolute Lymphs (auto) 1.70 1.65 Nucleated RBC % 0 0 Sodium 143 Potassium 3.3 L Chloride 105 Carbon Dioxide 32.0 Anion Gap 6 BUN 12 Creatinine 0.89 Estim Creat Clear Calc 38.54 Est GFR (MDRD) Af Amer 78 Est GFR (MDRD) Non-Af 64 BUN/Creatinine Ratio 13.4 Glucose 105 Calcium 9.4 Magnesium 2.1 07/01/19 07:18 WBC RBC Hgb Hct MCV MCH MCHC RDW Std Deviation RDW Coeff of Junior Plt Count MPV Immature Gran % (Auto) Neut % (Auto) Lymph % (Auto) [place] % (Auto) Eos % (Auto) Baso % (Auto) Absolute Neuts (auto) Absolute Lymphs (auto) Nucleated RBC % Sodium Pending Potassium Pending Chloride Pending Carbon Dioxide Pending Anion Gap Pending BUN Pending Creatinine Pending Estim Creat Clear Calc Est GFR (MDRD) Af Amer Pending Est GFR (MDRD) Non-Af Pending BUN/Creatinine Ratio Pending Glucose Pending Calcium Pending Magnesium Clinical Impression(s) from Imaging Studies Ankle X-Ray 06/30/19 12:46 IMPRESSION: Oblique fracture of the distal fibula extending to the lateral malleolus as well as an avulsion fracture of the posterior tibial plateau. Disruption of the ankle mortise. Soft tissue swelling. Electronically Signed: Robert Berger, at 13:11 EST , Service support , Ankle X-Ray 06/30/19 15:00 IMPRESSION: Satisfactory reduction with residual asymmetry of the ankle mortise. Soft tissue swelling. Electronically Signed: Robert Berger, at 15:27 EST , Service support , Chest X-Ray 06/30/19 15:43 IMPRESSION: Large hiatal hernia. Mild degree of increased markings at the lung bases suggestive of scarring with blunting of both costophrenic angles. Electronically Signed: Robert Berger, at 16:02 EST , Service support , Current Medications Dextrose (D50w Syringe) 0 gm IV X1 PRN; Protocol PRN Reason: Hypoglycemia Enoxaparin Sodium (Lovenox) 40 mg SC DAILY [facility] Furosemide (Lasix) 40 mg PO BIDLX [facility] Last Admin: 06/30/19 19:58 Dose: 40 mg Documented by: Glucagon () 1 mg IM .X1 PRN PRN Reason: Hypoglycemia Levothyroxine Sodium (Synthroid) 75 mcg PO DAILY@0600 [facility] Last Admin: 07/01/19 06:22 Dose: 75 mcg Documented by: Metoprolol Succinate (Toprol Xl (Beta Evelio)) 25 mg PO DAILY [facility] Morphine Sulfate () 2 mg IV Q3H PRN PRN PRN Reason: Pain Score 6-10/10 Last Admin: 06/30/19 23:00 Dose: 2 mg Documented by: Ondansetron HCl (Zofran) 4 mg IV Q8H PRN PRN PRN Reason: NAUSEA/VOMITING Oxycodone HCl (Oxyir) 5 mg PO Q4H PRN PRN PRN Reason: Pain Score 4-5/10 Last Admin: 07/01/19 01:01 Dose: 5 mg Documented by: Potassium Chloride (K-Dur) 10 meq PO BIDCM [facility] Last Admin: 06/30/19 20:07 Dose: 10 meq Documented by: Psyllium Hydrophilic Mucill[facility] ([facility]amucil) [facility] Sodium Chloride () 10 - 40 ml IV UD PRN PRN Reason: SALINE FLUSH Last Admin: 06/30/19 20:02 Dose: 10 ml Documented by: Assessment/Plan All Active Problems (Last Reviewed 06/24/19 @ 11:05 by Conrad Green NP-C) Closed fracture dislocation of left ankle joint (Acute) History of aortic valve replacement with bioprosthetic valve (Resolved 05/06/12) RECOMMENDATIONS: 1. Orders for BiPAP therapy 18/14 + 2L with naps and nightly have been placed. 2. Encourage perioperative incentive spirometer use. 3. Perioperative DVT prophylaxis and early mobilization. 4. If undergoing general anesthesia or MAC, recommend that her BiPAP be made immediately available to her while she recovers from anesthesia postoperatively. 5. Wean supplemental oxygen to maintain saturations at or above 90%. IMPRESSIONS: 1. Obstructive sleep apnea The patient has been followed by Dr. Paul in the past on an outpatient basis due to obstructive sleep apnea, for which she is currently prescribed nocturnal bilevel pressure support with a setting of 18/14 centimeters of water with a 2 L/min supplemental oxygen bleed in. The patient is at mildly increased risk for postoperative pulmonary complications, given her history of obstructive sleep apnea, although the risk is not prohibitive. Steps recommended perioperatively to minimize risk include incentive spirometer use, early mobilization, DVT prophylaxis and perioperative use of BiPAP. I strongly recommend that if the patient is to undergo general anesthesia or MAC that her BiPAP be immediately available to her postoperatively, while she recovers from anesthesia. Orders for home BiPAP therapy have been placed along with orders for incentive spirometer. This note was generated with [employer] dictation software. It may contain incorrect words, spelling, and punctuation that were not noted in checking the note before signing. Code Visit Inpatient E&M: 30613 Init Hosp L2
[2019-07-01 07:59] LABS: Anion Gap 3 (5-15); BUN 13 mg/dL (7-18); Calcium,Total 8.6 mg/dL (8.5-10.1); Chloride 105 mmol/L (98-107); Creatinine, Serum 0.81 mg/dL (0.55-1.02); EST Glomerular Filtration Rate 72 mL/min (>60); Est Glom Filt Rate - Afr Amer 87 mL/min (>60); Estimated Creatinine Clearance 42.35 ml/min; Glucose 133 mg/dL (74-106); Potassium 3.6 mmol/L (3.5-5.1); Sodium Level 140 mmol/L (136-145)
--- NOTE | 2019-07-01 10:33 | NURSING ---
sister in- states that pt misspoke with Dr. Agarwal this morning and states that bipap settings are on
[2019-07-01] MEDS: Enoxaparin 40 MG/0.4 ML Syringe SC (12:52)
--- NOTE | 2019-07-01 13:40 | CASEMGMT ---
RN CM Assessment Introduced role of RN CM to patient and patient sister Radha at bedside. Patient consents to RNCM assessment at this time in sister's presence.? Patient is alert, oriented and able?to participate in RN CM Assessment. ?Care providers, pharmacy, and demographics verified. Presentation: Mechanical fall going down basement, c/o Lt ankle pain Admit Dx: Mechanical Fall, Ankle Fx Re-Admit: No Barriers/Issues: Patient lives alone, has a good family support system PCP: Jimbo Koch III Specialists: Cardio- Dr Monsalve, Pulm- Dr Paul, ENT- Dr Gutierres Preferred Pharmacy: [facility] Insurance: [employer] A[employer], [employer] Rx Benefit:?Yes, Silver scripts ?LNOK: Lalo Navarro LW/HPOA: States has both completed, aware not on file with [facility] and if brought in will scan a copy on file. HPOA- Lalo Navarro Living Arrangements:? Lives alone in a H, 3 steps to enter through side landing, 1 step to enter through front, normally enters through side. ADL?s: Independent with ambulation and ADLs Transportation: Patient drives, family capable to assist with transportation if needed through healing process DME: Bipap with O2 bled 2lpm- [employer]. Denies any other DME. HHC: None SNF: [facility] Goal: First preference would be to go home, however states TBD as supposed to have surgery tomorrow and will then know weight bearing status and f/u PT/OT for recommendations. Given HHC list. States okay with going to SNF if recommended, list provided and states preference is [facility]. Aware CM will remain available for emerging needs and care coordination. Denies any issues/concerns/questions with DC planning at this time. DC PLAN: Home with HH PT vs SNF, RNCM continue to follow. SUMI Gaston
--- NOTE | 2019-07-01 14:13 | CASEMGMT ---
Social Work Note Physician updated this worker that pt may be good candidate for RU. SW did call referral line and provided referral for RU. Plan: TBD. Pt is having surgery today. Anjelica Campos TIER LIFT TRUCK OPERATOR, BODY MECHANIC
--- NOTE | 2019-07-01 15:41 | CONS.ORTHO ---
Problem List (1) Closed fracture dislocation of left ankle joint Status: Acute Qualifiers: Encounter type: initial encounter Qualified Code(s): S82.892A - Other fracture of left lower leg, initial encounter for closed fracture - Consult Date of Consult: 07/01/19 Patient seen at bedside. Patient is alert and oriented x 3 and NAD. She states that her pain is mild to moderate in nature but again shows no discomfort or distress. She did have her foot elevated on a pillow but states that it was uncomfortable and so she does not currently have this elevated. She has been taking pain medication as needed without side effects. She has not had any ice on the area. Patient has generalized swelling of the left lower extremity (mid-tibia distal). There is evident ecchymosis noted on medial and lateral malleolus and foot with an evident fracture blister on the medial/anterior distal tibia. Patient has tenderness on palpation of the lateral malleolus. She has intact sensation throughout the extremity and very good 2+ pedal pulses. She has intact motor function of the knee/ankle/toes. Her compartments are soft with no calf tenderness and a negative homans. Images from the ER were reviewed previously with Dr. De Luna showing evident distal fibula fracture with tibial dislocation. Reduction films show improved alignment/position at the same time still medial clear space widening and slight displacement. After review of images we are planning to proceed with ORIF of the ankle as long as she is medically cleared and as soon as the swelling subsides to a point of comfort ( There is still a moderate amt of swelling with the evident blister). We can continue to elevate the leg as best and as comfortable as possible (trying for toes above the nose) and would also like to have them use some ice on the distal extremity for 20 minutes every 2-3 hours. They can continue pain medications as needed and other medical management. We will re-evaluate her tomorrow morning to determine whether we will proceed with surgery tomorrow. If the swelling has not improved, then we will try for a better closed reduction and splint application with anticipation of proceeding with surgery on Sunday. - Reason for Consult Patient seen following admission from the ER due to a fall at home causing distal fibula fracture with tibial dislocation.
[2019-07-01] MEDS: Metoprolol(XL)Succ 25 MG Tablet PO (16:25)
[2019-07-01] MEDS: Furosemide 40 MG Tablet PO (16:25)
--- NOTE | 2019-07-01 18:37 | PCM.PROGNOTE ---
Patient Problems: Active and Suspected Problems (Last Reviewed 06/24/19 @ 11:05 by Conrad Green NP-C) Closed fracture dislocation of left ankle joint (Acute) Subjective: Patient was seen and examined today, her sister was present in the room when I examined the patient today, I also talked with orthopedic surgery today-they feel the patient may be ready for surgery tomorrow but there is a possibility the patient surgery may be postponed until this Sunday. I talked to the patient briefly about going to an extended care facility or a rehab facility at the time of discharge from the hospital-she is agreed to consider this and I talked to case management and manager social about possibly trying to have the patient go to the rehab unit here at [facility]. Patient continues to have frequent ectopy including PACs and PVCs on the monitor-the patient is asymptomatic with these arrhythmias however. - Physical Exam Vitals/I&O's: Vital Signs Temp Pulse Resp BP Pulse Ox 98.4 F 97 16 144/60 H 96 07/01/19 13:55 07/01/19 16:25 07/01/19 13:55 07/01/19 13:55 07/01/19 13:55 Oxygen Flow Rate (L/min) 2 Oxygen Delivery Method Room Air Weight: 78.018 kg Body Mass Index (BMI) 31.4 Intake and Output for Last 24 Hours 06/29/19 06/30/19 07/01/19 23:59 23:59 23:59 Intake Total 600 / 600 Output Total 650 / 650 Balance -50 / -50 Laboratory Results 07/01/19 07:18: WBC 7.1, RBC 3.91 L, Hgb 12.2, Hct 38.4, MCV 98.2, MCH 31.2, MCHC 31.8 L, RDW Std Deviation 47.2 H, RDW Coeff of Junior 13.2, Plt Count 204, MPV 9.6, Immature Gran % (Auto) 0.100, Neut % (Auto) 67.7, Lymph % (Auto) 23.3, [place] % (Auto) 8.1, Eos % (Auto) 0.4, Baso % (Auto) 0.4, Absolute Neuts (auto) 4.8, Absolute Lymphs (auto) 1.65, Nucleated RBC % 0 02/11/20 07:18: Sodium 140, Potassium 3.6, Chloride 105, Carbon Dioxide 32.0, Anion Gap 3 L, BUN 13, Creatinine 0.81, Estim Creat Clear Calc 42.35, Est GFR (MDRD) Af Amer 87, Est GFR (MDRD) Non-Af 72, BUN/Creatinine Ratio 16.0, Glucose 133 H, Calcium 8.6 Current Medications Dextrose (D50w Syringe) 0 gm IV X1 PRN; Protocol PRN Reason: Hypoglycemia Enoxaparin Sodium (Lovenox) 40 mg SC DAILY [facility] Last Admin: 07/01/19 12:52 Dose: 40 mg Documented by: Furosemide (Lasix) 40 mg PO BIDLX [facility] Last Admin: 07/01/19 16:25 Dose: 40 mg Documented by: Glucagon () 1 mg IM .X1 PRN PRN Reason: Hypoglycemia Levothyroxine Sodium (Synthroid) 75 mcg PO DAILY@0600 [facility] Last Admin: 07/01/19 06:22 Dose: 75 mcg Documented by: Metoprolol Succinate (Toprol Xl (Beta Evelio)) 25 mg PO DAILY [facility] Last Admin: 07/01/19 16:25 Dose: 25 mg Documented by: Morphine Sulfate () 2 mg IV Q3H PRN PRN PRN Reason: Pain Score 6-10/10 Last Admin: 06/30/19 23:00 Dose: 2 mg Documented by: Ondansetron HCl (Zofran) 4 mg IV Q8H PRN PRN PRN Reason: NAUSEA/VOMITING Oxycodone HCl (Oxyir) 5 mg PO Q4H PRN PRN PRN Reason: Pain Score 4-5/10 Last Admin: 07/01/19 15:52 Dose: 5 mg Documented by: Potassium Chloride (K-Dur) 10 meq PO BIDCM [facility] Last Admin: 06/30/19 20:07 Dose: 10 meq Documented by: Psyllium Hydrophilic Mucilloid ([facility]il) [facility] Last Admin: 07/01/19 16:23 Dose: Not Given Documented by: Sodium Chloride () 10 - 40 ml IV UD PRN PRN Reason: SALINE FLUSH Last Admin: 06/30/19 20:02 Dose: 10 ml Documented by: Medical Necessity - Tobacco Use Smoking Status: Never smoker Tobacco Use: Non-smoker Assessment/Plan All Active Problems (Last Reviewed 06/24/19 @ 11:05 by Conrad Green, PHARMACY STUDENT-C) Closed fracture dislocation of left ankle joint (Acute) History of aortic valve replacement with bioprosthetic valve (Resolved 05/06/12)
[2019-07-02] VITALS (18 sets, daily range): BP systolic 101–127; BP diastolic 44–52; PULSE 62–103; RESP 12–29; TEMP 36.7–37.6; O2SAT 90–99; BMI 31.4; BMI 31.5
[2019-07-02] MEDS: oxyCODONE 5 MG Tablet PO (00:04)
[2019-07-02] MEDS: 0.9% Saline Lock 10 ML Syringe IV (00:07)
[2019-07-02 06:40] LABS: Thyroid Stim Hormone (TSH) 1.56 uIU/mL (0.358-3.74)
--- NOTE | 2019-07-02 10:33 | CASEMGMT ---
Social Work Note SW spoke with Nini with RU and updated her that pt will likely have surgery today, may be ready for discharge by Sunday. SW to continue to follow. Pt initially wanted to return home but may need RU. Plan: TBD pending pt's surgery and how pt does after surgery Anjelica Campos SHUTTLE CAR OPERATOR, INDUSTRIAL SERVICE TECHNICIAN
[2019-07-02] MEDS: Lactated Ringers 1,000 ML 100 ML IV ×2 (11:49→18:34)
--- NOTE | 2019-07-02 12:12 | NURSING ---
Addendum entered by Anisa Ray 07/02/19 12:12: taken to surgery at 1110 Original Note: Pt taken from unit for surgery
--- NOTE | 2019-07-02 13:13 | RAD_ITS ---
STUDY: X-RAY - LEFT ANKLE REASON FOR EXAM: Closed reduction. TECHNIQUE: 4 fluoroscopic images of the ankle. COMPARISON: Radiographs 06/30/2019. FINDINGS: There is a fracture of the distal fibula with widening of the ankle mortise on the initial images, and reduction of the ankle mortise on the casted images. 5.5 seconds of fluoroscopy time was used. Electronically Signed: Clyde Irizarry MD at 15:12 EST Tel , Service support , RAD/Ankle min 3 Views
--- NOTE | 2019-07-02 13:58 | OP.PCM_ITS ---
Report of Operation Date of Procedure: 07/02/19 Pre-Operative Diagnosis: left trimalleolar fracture dislocation/s/p reduction in ER, nonconcentric reduction Post-Operative Diagnosis: same Surgery/Procedure Performed:: left close reduction splint application ankle Description of Surgical Findings:: fracture blisters and swelling/edema c/w fracture trimall dairy bacteriologist: Vega Kwon Type of Anesthesia:: General Anesthesiologist: Koby Howe Estimated Blood Loss (mL): none Fluids Replaced: 200cc Description of Procedure: Preop note Patient is an 84-year-old female who sustained an injury to her left ankle. Patient denies constitutional symptoms head trauma or other pain in other joint s. Patient isolated to the left ankle. Patient was closed reduced in the emergency room x-rays reviewed by myself so that was a nonconcentric reduction determination determined today whether or not she should have an ORIF versus a closed reduction in a splint depending upon her swelling. Patient was seen in the preop holding area she had circumferential swelling and negative wrinkle sign as well as fracture blisters laterally and medially and superiorly along the fracture and along the places of the incisions at this point we will just monitor her and close reduce her today and then monitor her swelling over the next week or so. This was discussed with patient as well as her sister aware of all risk benefits and alternatives surgery at this point we do a closed reduction short leg splint of her left ankle. Operative note Patient seen in preop holding area left leg was marked. Patient brought to the operating placed supine on the operating table. Signed, anesthesia was administered. We took preop fluoroscopy films both AP and lateral showing a non-concentric reduction of the tri-mall equivalent with a medial clear space widening. We then reduced her and place a bulky [place] posterior splint on the left lower extremity and then repeated our final images in both AP and lateral planes to ensure that we had a concentric reduction which we did have. Patient was transferred recovery room in stable condition all bony patient taught procedure well no complications. Postoperative note Nonweightbearing Okay to transition to the transitional care unit ; for definitive treatment in the next week or so depending upon swelling of the left ankle versus following up as an outpatient in my office We will discuss with hospitalist Continue current med mgmt Call with increased pain numbness tingling further issues arise This note was generated with Dragon dictation software. It may contain incorrect words, spelling, and punctuation that were not noted in checking the note before signing.
[2019-07-02] MEDS: Metoprolol(XL)Succ 25 MG Tablet PO (17:22)
[2019-07-02] MEDS: Furosemide 40 MG Tablet PO (17:22)
--- NOTE | 2019-07-02 18:51 | PN_ITS ---
Patient Problems: Active and Suspected Problems (Last Reviewed 06/24/19 @ 11:05 by Conrad Green NP-C) Closed fracture dislocation of left ankle joint (Acute) Subjective: Patient seen and examined today, orthopedic surgery took the patient to surgery today but was unable to do an open reduction on the patient due to extreme swelling in the patient's left ankle area. They will not be able to do an open reduction until next week. We will plan on the patient going to a rehab facility for PT and OT in the meantime. - Physical Exam Vitals/I&O's: Vital Signs Temp Pulse Resp BP Pulse Ox 98.0 F 95 16 106/49 L 92 07/02/19 18:38 07/02/19 18:38 07/02/19 18:38 07/02/19 18:38 07/02/19 18:38 Oxygen Flow Rate (L/min) 2 Oxygen Delivery Method Room Air Weight: 78.018 kg Body Mass Index (BMI) 31.4 Intake and Output for Last 24 Hours 06/30/19 07/01/19 07/02/19 23:59 23:59 23:59 Intake Total 1750 / 1750 1165 / 1165 Output Total 1525 / 1525 375 / 375 Balance 225 / 225 790 / 790 General: Alert, Oriented x3, Cooperative, No apparent distress, Well developed HEENT: Atraumatic, PERRLA, EOMI, Normocephalic Oral: Moist Mucosa Neck: Supple, Trachea Midline, Thyroid Normal Size and Texture Lungs: Clear to auscultation, Normal air movement, No rhonchi, No wheeze, No rales Cardiovascular: Regular rate, Regular Rhythm, Normal S1, Normal S2, No murmurs, PMI Normal, No rub noted, No Gallop Abdomen: Bowel Sounds Present, Soft, Non Tender, Non-Distended Extremities: No clubbing, No cyanosis, Capillary Refill Less than 3 Seconds Neurological: Cranial nerves II-XII grossly intact, Neuro grossly intact, Sensory exam intact to light touch and pain Psych/Mental Status: Normal Affect, Appropriate, Alert and oriented to time, place, person, mood and affect Laboratory Results 07/01/19 07:18: TSH 1.56 Current Medications Dextrose (D50w Syringe) 0 gm IV X1 PRN; Protocol PRN Reason: Hypoglycemia Enoxaparin Sodium (Lovenox) 40 mg SC DAILY [facility] Last Admin: 07/02/19 12:10 Dose: Not Given Documented by: Furosemide (Lasix) 40 mg PO BIDLX [facility] Last Admin: 07/02/19 17:27 Dose: Not Given Documented by: Glucagon () 1 mg IM .X1 PRN PRN Reason: Hypoglycemia Lactated Ringer's () 1,000 mls @ 100 mls/hr IV .Q10H [facility] Last Admin: 07/02/19 18:34 Dose: 100 mls/hr Documented by: Levothyroxine Sodium (Synthroid) 75 mcg PO DAILY@0600 [facility] Last Admin: 07/02/19 05:46 Dose: Not Given Documented by: Metoprolol Succinate (Toprol Xl (Beta Evelio)) 25 mg PO DAILY [facility] Last Admin: 07/02/19 17:22 Dose: 25 mg Documented by: Morphine Sulfate () 2 mg IV Q3H PRN PRN PRN Reason: Pain Score 6-10/10 Last Admin: 06/30/19 23:00 Dose: 2 mg Documented by: Ondansetron HCl (Zofran) 4 mg IV Q8H PRN PRN PRN Reason: NAUSEA/VOMITING Oxycodone HCl (Oxyir) 5 mg PO Q4H PRN PRN PRN Reason: Pain Score 4-5/10 Last Admin: 07/02/19 00:04 Dose: 5 mg Documented by: Potassium Chloride (K-Dur) 10 meq PO BIDCM [facility] Last Admin: 07/02/19 17:23 Dose: 10 meq Documented by: Psyllium Hydrophilic Mucill[facility] ([facility]) [facility] Last Admin: 07/02/19 17:23 Dose: Not Given Documented by: Sodium Chloride () 10 - 40 ml IV UD PRN PRN Reason: SALINE FLUSH Last Admin: 07/02/19 00:07 Dose: 10 ml Documented by: Medical Necessity - Tobacco Use Smoking Status: Never smoker Tobacco Use: Non-smoker Assessment/Plan All Active Problems (Last Reviewed 06/24/19 @ 11:05 by Conrad Green NP-C) Closed fracture dislocation of left ankle joint (Acute) History of aortic valve replacement with bioprosthetic valve (Resolved 05/06/12) #1 closed fracture of the left ankle-again patient will not be able to have surgery until next week, she will need transfer to a rehab facility tomorrow #2 essential hypertension #3 pulmonary hypertension #4 remote history of aortic valve replacement with bioprosthetic valve #5 cardiac arrhythmias-PACs and PVCs #6 obstructive sleep apnea-patient wears BiPAP at night Code Visit Inpatient E&M: 34569 Subs Hosp L2
--- NOTE | 2019-07-02 21:27 | CPS ---
Pts. own BiPAP was setup at bedside by CO TEACHER. Water chamber was filled and machine was tested for proper function. 2L O2 was bled in per patient's home regimen. 2150 patient was increased by RN to 4L bleed in on machine because pulse ox was mid 80s. Will monitor throughout night. Hospitals BiPAP machine was pulled and cleaned.
[2019-07-03] MEDS: Lactated Ringers 1,000 ML 100 ML IV (04:55)
[2019-07-03 04:56] VITALS: BP 149/95; PULSE 58; RESP 18; TEMP 36.3; O2SAT 96
[2019-07-03] MEDS: Levothyroxine 75 MCG Tablet PO (04:59)
--- NOTE | 2019-07-03 07:44 | NURSING ---
will give 0800 potassium when breakfast arrives
[2019-07-03 08:01] VITALS: O2SAT 94
[2019-07-03 10:00] VITALS: BP 103/52; PULSE 72; RESP 18; TEMP 36.8; O2SAT 96
--- NOTE | 2019-07-03 10:28 | CASEMGMT ---
Social Work Note SW received call from Nini with [facility] stating physician spoke with [facility] physician yesterday and [facility] is able to accept pt today. SW in to meet with pt to discuss discharge plans. SW introduced self and role at [facility]. Pt is alert and orientated x3. SW educated pt on SNF, TCU and [facility] and that [facility] is able to accept pt. Pt is agreeable to [facility] today. SW placed a call back to Nini with [facility] and informed her pt is agreeable to [facility] and should be discharge to [facility] today. Plan: [facility] today Anjelica Campos ASIAN ART CURATOR, CORPORATE ACCOUNTANT
[2019-07-03 10:47] VITALS: PULSE 72
[2019-07-03] MEDS: Enoxaparin 40 MG/0.4 ML Syringe SC (10:47)
[2019-07-03] MEDS: Metoprolol(XL)Succ 25 MG Tablet PO (10:47)
--- NOTE | 2019-07-03 11:11 | PCM.TXEXTCAR ---
- Diet 07/02/19 15:01 Diet: Cardiac/Low Cholesterol Is pt able to select menu?: Yes - Routine Orders/Code Status O2 Frequency: oxygen at 2 l/min with Bipap when sleeping Code Status: Full Code - Wound(s) left lower leg Wound Type: Surgical Incision - Therapies Weight Bearing: Non weight bearing - left leg Physical Therapy: Eval and Treat Occupational Therapy: Eval and Treat - Problem/Diagnosis (1) Polio Status: Chronic Current Visit: No (2) Closed fracture dislocation of left ankle joint Status: Acute Current Visit: Yes (3) Secondary pulmonary arterial hypertension Status: Chronic Current Visit: No (4) Chronic diastolic (congestive) heart failure Status: Chronic Current Visit: No (5) Essential (primary) hypertension Status: Chronic Current Visit: No (6) History of aortic valve replacement with bioprosthetic valve Status: Resolved Comment: AVR with #[facility] 05/06/12 Current Visit: No - Allergies/Procedures Done in Hospital Allergies/Adverse Reactions: Allergies aspirin Allergy (Verified 06/30/19 16:44) made my blood too thin hydrocodone [From Vicodin] Allergy (Verified 06/30/19 11:36) Unknown niacin Adverse Reaction (Verified 06/30/19 17:10) severe sweating simvastatin Adverse Reaction (Verified 06/30/19 17:10) muscle aches - Type of Care/Length of Stay Estimated LOS: Convalescent Care Less Than 30 days Type of Care Needed: Acute Rehab Rehab Potential: Good Prognosis: Good - Additional Orders/Day of Discharge Additional Orders: See Dr. De Luna on Sunday07/08/19-call office for appointment H&P will serve as current which was dated: 06/30/19 Day of Discharge: 07/03/19 - Follow Up Care Primary Care Physician: Jimbo Koch III, MD [Primary Care Provider] -
[2019-07-03 11:15] VITALS: BP 102/58; PULSE 61; RESP 16; TEMP 36.9; O2SAT 96
--- NOTE | 2019-07-03 15:15 | NURSING ---
report called to kendrick ring in [facility]. pt going to [id number]
--- NOTE | 2019-07-04 08:49 | PCM.DC.SUM ---
Discharge Date and Diagnosis Date of Admission: 06/30/19 Date of Discharge: 07/03/19 - Primary Discharge Diagnosis #1 closed fracture of the left ankle-distal fibula with disruption of the ankle mortise and avulsion fracture of the posterior tibial plateau #2 essential hypertension #3 pulmonary hypertension #4 remote history of aortic valve replacement with bioprosthetic valve #5 cardiac arrhythmias-PACs and PVCs #6 obstructive sleep apnea - Secondary Discharge Diagnosis Chronic Problems (Last Reviewed 06/24/19 @ 11:05 by Conrad Green NP-C) Polio (Chronic) Secondary pulmonary arterial hypertension (Chronic) Chronic diastolic (congestive) heart failure (Chronic) Essential (primary) hypertension (Chronic) Non-rheumatic aortic stenosis (Chronic) AVR 05/06/12 Hospital Course and Treatment Operations: - - closed reduction of left trimalleolar fracture with dislocation Procedures: None Summary of Care Provided: The patient is a 84 year old F who was seen in the emergency room at [facility] with a chief complaint of left ankle pain with inability to ambulate after suffering a fall at home. Patient had obvious deformity of the left ankle on presentation to the emergency room and a close reduction was undertaken. X-rays obtained in the emergency room showed an oblique fracture of the distal fibula extending into the lateral malleolus as well as an avulsion fracture of the posterior tibial plateau. Disruption of the ankle mortise was noted. Patient was admitted to [place] [address], she was seen by PT and OT as well as orthopedic surgery. An attempt was made to repair the fracture but there was noted to be too much swelling and a closed reduction was carried out in the operating room by orthopedic surgery. It was felt that the patient would benefit from inpatient rehab services, she was accepted at the rehab unit at [facility]. On 07/03/2019, patient was seen and examined: On examination she appeared in good health and spirits. Vital signs as documented. Skin warm and dry and without overt rashes. Neck without JVD. Lungs clear. Heart exam notable for regular rhythm, normal sounds and absence of murmurs, rubs or gallops. Abdomen unremarkable and without evidence of organomegaly, masses, or abdominal aortic enlargement. Extremities-a splint is noted on the left lower leg. Neuro: Cranial nerves II through XII are grossly intact, no focal motor deficits were noted, sensation to light touch and pinprick is intact. Psych: Patient is alert and oriented x3, she does not appear anxious or depressed On 07/03/2019, patient was transferred to the rehab unit at [facility] in stable condition. - Physical Exam Vitals/I&O's: Vital Signs Temp Pulse Resp BP Pulse Ox 98.4 F 61 16 102/58 L 96 07/03/19 11:15 07/03/19 11:15 07/03/19 11:15 07/03/19 11:15 07/03/19 11:15 Oxygen Flow Rate (L/min) 2 Oxygen Delivery Method Nasal Cannula Weight: 78.018 kg Body Mass Index (BMI) 31.4 Intake and Output for Last 24 Hours 07/02/19 07/03/19 07/04/19 23:59 23:59 23:59 Intake Total 1315 / 1315 1600 / 1600 Output Total 375 / 375 253 / 253 Balance 940 / 940 1347 / 1347 Home Medications: Medications to take at Discharge Calcium Carbonate/Vitamin D3 [Calcium 600-Vit D3 800 Tablet] 1 tab PO DAILY 06/30/19 Cholecalciferol (VIT D3) [Vitamin D3] 1,000 unit PO DAILY 06/30/19 Furosemide [Lasix] 40 mg PO BID 06/30/19 Levothyroxine [Synthroid] 75 mcg PO DAILY 06/30/19 Metoprolol Succinate 25 mg PO DAILY 06/30/19 Multivitamin with Minerals [One Daily Plus Minerals] 1 tab PO DAILY 06/30/19 [place]-3 Fatty Acids [Fish Oil] 2 tab PO DAILY 06/30/19 Potassium Chloride [K-Dur] 10 meq PO BID 06/30/19 Psyllium [Metamucil] 1 packet PO DAILY 06/30/19 Primary Care Physician: Jimbo Koch III, MD [Primary Care Provider] - Disposition: Inpt Rehab Unit/Facility Minutes spent on discharge:: 32 Patient Condition:: Stable Medical Necessity - Tobacco Use Smoking Status: Never smoker Tobacco Use: Non-smoker Meaningful Use Info Meaningful Use Diagnoses (Choose all that apply): None applicable Code Visit Inpatient E&M: 14622 Disch Hosp
== END 2019-07-03 15:45 | DRG 563 ==
LOC: ED 15:49 → MS3 16:13
PROVIDERS: Anesthesiology; Orthopaedic Surgery; Admitting Provider Student in an Organized Health Care Education/Training Program; Emergency Provider Emergency Medicine; PCP Family Medicine; Visit Provider Internal Medicine
PROC: 0SSGXZZ Reposition Left Ankle Joint, External Approach (ICD-10-PCS; principal; 2019-07-02 12:50)
DX: S82.62XA Displaced fracture of lateral malleolus of left fibula, initial encounter for closed fracture (principal); I50.32 Chronic diastolic (congestive) heart failure; S82.302A Unspecified fracture of lower end of left tibia, initial encounter for closed fracture; I11.0 Hypertensive heart disease with heart failure; I27.21 Secondary pulmonary arterial hypertension; S93.02XA Subluxation of left ankle joint, initial encounter; W10.8XXA Fall (on) (from) other stairs and steps, initial encounter; R53.1 Weakness; Y92.018 Other place in single-family (private) house as the place of occurrence of the external cause; E03.9 Hypothyroidism, unspecified; G47.33 Obstructive sleep apnea (adult) (pediatric); E20.9 Hypoparathyroidism, unspecified; B91 Sequelae of poliomyelitis; Z95.3 Presence of xenogenic heart valve; I35.0 Nonrheumatic aortic (valve) stenosis; M81.0 Age-related osteoporosis without current pathological fracture
CPT/HCPCS: 36415; 71045; 73600; 73610; 76000; 80048; 83735; 84443; 85025; 93005; 94003; 97162; 97167; 99251; 99285; J7120; A4216; G0463; J2405

== ENCOUNTER 2019-07-03 15:53 | Inpatient (IN) | payer MEDICARE, OTHER, SELFPAY ==
[2019-07-02 11:05] VITALS: BMI 31.4
[2019-07-03 16:01] VITALS: BP 112/60; PULSE 80; RESP 20; TEMP 36.8; O2SAT 95; BMI 31.4; BMI 31.5
[2019-07-03 18:40] VITALS: RESP 24; O2SAT 97
[2019-07-03 19:24] VITALS: BP 110/49; PULSE 78; RESP 18; TEMP 36.7; O2SAT 98
[2019-07-03] MEDS: Furosemide 40 MG Tablet PO (20:56)
[2019-07-03] MEDS: oxyCODONE 5 MG Tablet PO (22:49)
[2019-07-04] MEDS: Levothyroxine 75 MCG Tablet PO (05:50)
[2019-07-04 06:45] VITALS: O2SAT 91
[2019-07-04] MEDS: Multivitamins,Ther W-Minerals Tablet 1 TABLET PO (07:57)
[2019-07-04] MEDS: Furosemide 40 MG Tablet PO (07:58)
[2019-07-04] MEDS: Calcium Carb/Vitamin D 1 TABLET Tablet PO (07:58)
[2019-07-04] MEDS: Omega-3 Acid Ethyl Esters 1 GM Capsule PO (07:58)
[2019-07-04 07:59] VITALS: BP 91/52; PULSE 62
[2019-07-04] MEDS: Metoprolol(XL)Succ 25 MG Tablet PO (07:59)
[2019-07-04 08:13] VITALS: BP 110/62; PULSE 62; RESP 16; TEMP 36.4; O2SAT 95
--- NOTE | 2019-07-04 13:08 | HP.PCM_ITS ---
Problem List (1) ANDRY (obstructive sleep apnea) Status: Chronic Comment: She is on BIPAP with oxygen bleed in at night....follows with Dr. Pual (2) Polio Status: Chronic Comment: when she was a child < 12 (3) Closed fracture dislocation of left ankle joint Status: Acute Qualifiers: Encounter type: subsequent encounter (4) Secondary pulmonary arterial hypertension Status: Chronic Comment: Estimated PA systolic in April 2018 was 42 mmHg. (5) Chronic diastolic (congestive) heart failure Status: Chronic (6) Essential (primary) hypertension Status: Chronic (7) Non-rheumatic aortic stenosis Status: Chronic Comment: AVR 05/06/12 (8) History of aortic valve replacement with bioprosthetic valve Status: Resolved Comment: AVR with #[address] [facility] 05/06/12 (9) Grade I diastolic dysfunction Status: Chronic (10) Physical debility Status: Acute Comment: due to closed L ankle fracture due to fall History of Present Illness Date of Admission: 07/03/19 Chief Complaint: traumatic fracture of the left ankle The patient is a 84 year old F with a past medical history of polio as a child, secondary pulmonary hypertension, chronic diastolic congestive heart failure, hypertension, nonrheumatic aortic stenosis with history of bioprosthetic aortic valve replacement on 05/06/2012, hypothyroidism, obstructive sleep apnea, benign paroxysmal positional vertigo and obesity who was admitted to the rehab unit on 07/03/2019 for debility secondary to a closed left ankle fracture sustained in a fall on 06/30/2019. She has been seen by Dr. De Luna and was to have surgery last week for ORIF but, the swelling was too great and the surgery was deferred until the swelling improves. She lives by herself and she has stairs to her basement and also 3 steps to get into the house. She will have at least 3 hours of therapy daily while in rehab and will be non-wt bearing on the LLE. She was independent with mobility, ADLs and driving prior to her fall. She has her BIPAP unit with her and uses it every night. She was seen by Dr. Boyd Monsalve on 06/30/2019 for a perioperative cardiac evalua tion. She has a stable bioprosthetic aortic valve replacement. He did not recommend any additional cardiovascular work-up prior to her surgery. He also recommended 24 hours of cardiac monitoring post surgery. She has a normal ejection fraction. She has stage I diastolic dysfunction with no regional wall motion abnormalities. She tells me that her pain is adequately controlled. Denies any change in her breathing. Wears O2 only at night Past Medical History Past Medical History (Chronic Problems): Chronic Problems (Last Reviewed 06/24/19 @ 11:05 by Conrad Green, CHILD NUTRITION MANAGER-C) Polio (Chronic) when she was a child < 12 ANDRY (obstructive sleep apnea) (Chronic) She is on BIPAP with oxygen bleed in at night....follows with Dr. Paul Grade I diastolic dysfunction (Chronic) Secondary pulmonary arterial hypertension (Chronic) Estimated PA systolic in April 2018 was 42 mmHg. Chronic diastolic (congestive) heart failure (Chronic) Essential (primary) hypertension (Chronic) Non-rheumatic aortic stenosis (Chronic) AVR 05/06/12 Medical History: Medical History (Last Reviewed 07/07/19 @ 12:05 by Cecille Brito DO) Secondary pulmonary arterial hypertension (Chronic) I27.21 Estimated PA systolic in April 2018 was 42 mmHg. Chronic diastolic (congestive) heart failure (Chronic) I50.32 Essential (primary) hypertension (Chronic) I10 Non-rheumatic aortic stenosis (Chronic) I35.0 AVR 05/06/12 Hypothyroidism E03.9 Obesity E66.9 Obstructive sleep apnea G47.33 Vertigo R42 Allergies aspirin Allergy (Verified 06/30/19 16:44) made my blood too thin hydrocodone [From Vicodin] Allergy (Verified 06/30/19 11:36) Unknown niacin Adverse Reaction (Verified 06/30/19 17:10) severe sweating simvastatin Adverse Reaction (Verified 06/30/19 17:10) muscle aches Home Medications: Ambulatory Orders Medication Instructions Recorded Calcium Carbonate/Vitamin D3 1 tab PO DAILY 06/30/19 [Calcium 600-Vit D3 800 Tablet] Cholecalciferol (VIT D3) [Vitamin 1,000 unit PO DAILY 06/30/19 D3] Furosemide [Lasix] 40 mg PO BID 06/30/19 Levothyroxine [Synthroid] 75 mcg PO DAILY 06/30/19 Metoprolol Succinate 25 mg PO DAILY 06/30/19 Multivitamin with Minerals [One 1 tab PO DAILY 06/30/19 Daily Plus Minerals] [place]-3 Fatty Acids [Fish Oil] 2 tab PO DAILY 06/30/19 Potassium Chloride [K-Dur] 10 meq PO BID 06/30/19 Psyllium [Metamucil] 1 packet PO DAILY 06/30/19 Surgical History: Surgical History (Last Reviewed 07/07/19 @ 12:06 by Cecille Brito DO) History of aortic valve replacement with bioprosthetic valve (Resolved) Onset Date: 05/06/12 Z95.4 AVR with #[address] [facility] 05/06/12 History of parathyroidectomy Z98.890 History of right and left heart catheterization Onset Date: 09/01/11 Z98.890 History of tonsillectomy and adenoidectomy Z98.890 Hx of cholecystectomy Z90.49 H/O breast biopsy (Inactive) Z98.890 H/O colonoscopy (Inactive) Z98.890 Surgical History: - - 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 REPAIR SHOP SUPERVISOR history Lives: Alone Smoking Status: Never smoker Tobacco Use: Non-smoker Alcohol: None Drugs: None - *Family History Maternal Family History: Family History (Last Reviewed 07/07/19 @ 12:07 by Cecille Brito DO) Father Dementia Mother Liver cirrhosis Sister Aortic valve disease Brother Dementia Review of Systems Constitutional: Denies: Anorexia, Chills, Fever, Malaise, Weight Change Eyes: Denies: Blurred vision, Vision Change HEENT: Denies: Head Aches, Nasal Congestion, Sinus Congestion, Sinus Drainage, Sore Throat Cardiovascular: Denies: Chest Pain, Edema, Light Headedness, Orthopnea, Palpitations, Syncope Respiratory: Reports: Shortness of breath upon exertion - this is chronic and there has been no change recently. Denies: Cough, Shortness of breath at rest, Sputum production Gastrointestinal: Denies: Abdominal Pain, Nausea, Vomiting Genitourinary: Reports: Frequency - chronic. Denies: Dysuria Gynecological: Denies: Vaginal discharge Musculoskeletal: Reports: Joint Pain - left ankle due to dislocation and fracture, Joint swelling - Left ankle. Denies: Joint Tenderness Skin: Denies: Jaundice, Rash, Wounds Neurological: Reports: Balance problems - she works on this at [employer]. Denies: Slurred speech, Confusion, Focal weakness, Numbness, Tingling, Tremor, Seizures Psychiatric: Denies: Anxiety, Depression, Homicidal Ideations, Suicidal Ideations Endocrine: Denies: Change in Body Habitus Hematologic/ Lymphatic: Denies: Easy Bruising, Easy Bleeding, Hx of blood clot VTE Information - Inpt Only VTE Present on Admission: No VTE Mechan Device Prophylaxis: Knee High TALON Hose VTE Pharm Prophylaxis ordered?: Yes Patient Problems: Active and Suspected Problems (Last Reviewed 06/24/19 @ 11:05 by Conrad Green NP-C) Physical debility (Acute) due to closed L ankle fracture due to fall - Physical Exam Vitals/I&O's: Vital Signs Temp Pulse Resp BP Pulse Ox 97.5 F L 62 16 110/62 95 07/04/19 08:13 07/04/19 08:13 07/04/19 08:13 07/04/19 08:13 07/04/19 08:13 Oxygen Flow Rate (L/min) 2 Oxygen Delivery Method Room Air Weight: 179 lb Body Mass Index (BMI) 31.4 Intake and Output for Last 24 Hours 07/02/19 07/03/19 07/04/19 23:59 23:59 23:59 Intake Total 720 / 720 Output Total 875 / 875 475 / 475 Balance -875 / -875 245 / 245 General: Alert, Oriented x3, Cooperative, No apparent distress, Well developed, Well nourished, - - sitting in the recliner at the bedside HEENT: Atraumatic, PERRLA, EOMI, Normocephalic Oral: Moist Mucosa, No Gingival or Mucosal Lesions/ Ulcerations Neck: Supple, No JVD, Negative Carotid Bruits, No Nodes, Trachea Midline Lungs: Clear to auscultation, No rhonchi, No wheeze, No rales, Diminished, - - There is symmetric chest expansion. She has no conversational dyspnea, no accessory muscle use and she is not tachypneic. Cardiovascular: Regular rate, Normal S1, Normal S2, Murmur - She has a 2/6 systolic ejection murmur heard at the lower left sternal border. Abdomen: Bowel Sounds Present, Soft, Non Tender, Non-Distended, Obese Extremities: No clubbing, No cyanosis, No edema, Capillary Refill Less than 3 Seconds, - - Intact sensation to the right foot and the foot is warm Skin: No rashes, No breakdown Musculoskeletal: No Muscle Wasting, Arthritic Changes, - - Left lower extremity is in a splint and heavily wrapped Neurological: Cranial nerves II-XII grossly intact, Neuro grossly intact Psych/Mental Status: Normal Affect, Appropriate Current Medications Acetaminophen (Tylenol) 1,000 mg PO Q8 [facility] Bisacodyl (Dulcolax) 10 mg RECTAL .PRN X 1 PRN PRN Reason: Constipation Calcium/Vitamin D (Os-Mikael 500mg + D) 1 tablet PO DAILY [facility] Last Admin: 07/04/19 07:58 Dose: 1 tablet Documented by: Cholecalciferol (Vitamin D) 1,000 unit PO DAILY [facility] Last Admin: 07/04/19 07:59 Dose: 1,000 unit Documented by: Furosemide (Lasix) 40 mg PO BID [facility] Last Admin: 07/04/19 07:58 Dose: 40 mg Documented by: Levothyroxine Sodium (Synthroid) 75 mcg PO DAILY@0600 [facility] Last Admin: 07/04/19 05:50 Dose: 75 mcg Documented by: Magnesium Hydroxide (Milk Of Magnesia) 30 ml PO .PRN X 1 PRN PRN Reason: Constipation Metoprolol Succinate (Toprol Xl (Beta Evelio)) 25 mg PO DAILY [facility] Last Admin: 07/04/19 07:59 Dose: 25 mg Documented by: Multivitamins/Minerals (Multivitamin With Minerals (Bkc)) 1 tablet PO DAILY@0800 [facility] Last Admin: 07/04/19 07:57 Dose: 1 tablet Documented by: Hferb-3-Hqxi Ethyl Esters (Lovaza) 1 gm PO DAILY [facility] Last Admin: 07/04/19 07:58 Dose: 1 gm Documented by: Oxycodone HCl (Oxyir) 5 mg PO Q4H PRN PRN PRN Reason: Pain Score 6-10/10 Last Admin: 07/03/19 22:49 Dose: 5 mg Documented by: Potassium Chloride (K-Dur) 10 meq PO BID [facility] Last Admin: 07/04/19 07:57 Dose: 10 meq Documented by: Psyllium Hydrophilic Mucilloid (Metamucil) 1 packet PO DAILY [facility] Last Admin: 07/04/19 08:02 Dose: Not Given Documented by: Senna/Docusate Sodium (Senokot-S, Treva-Colace) 2 tablet PO BID PRN PRN Reason: CONSTIPATION Assessment/Plan All Active Problems (Last Reviewed 06/24/19 @ 11:05 by Conrad Green CHILD NUTRITION MANAGER-C) Closed fracture dislocation of left ankle joint (Acute) Physical debility (Acute) History of aortic valve replacement with bioprosthetic valve (Resolved 05/06/12) Impressions 1. Physical disability secondary to distal left fibular fracture with tibial dislocation. Plan is for ORIF of the left ankle fracture next week. Continue nonweightbearing status. Enoxaparin for DVT prophylaxis. Physical therapy and Occupational Therapy for a 3 hours or greater a day. 2. Hyperglycemia with no history of diabetes mellitus-we will check a hemoglobin A1c 3. History of nonrheumatic aortic valve stenosis with bioprosthetic aortic valve replacement in April 2013/hypertension/secondary pulmonary hypertension/chronic diastolic congestive heart failure on Lasix/history of polio as a child/ANDRY/hypothyroidism/BPPV/obesity/grade 1 diastolic dysfunction/large hiatal hernia-complicate care, management and prognosis. Continue home medications. DVT prophylaxis. PLAN PT for gait stability with nonweightbearing on the left lower extremity OT for ADL's Analgesics as needed Bowel protocol Fall precautions Assess for Anxiety/Depression GI prophylaxis with famotidine perioperatively. Patient is asymptomatic however she has a large hiatal hernia and obstructive sleep apnea and is at risk for aspiration which would compromise her respiratory status DVT prophylaxis with enoxaparin and TALON hose. will DC the Enoxaparin the night prior to surgery Follow up with Dr. De Luna, Dr. Paul and Dr. Jimbo Koch following DC from IP Rehab I reviewed the cardiology and Pulmonary consults. Will need 24 hours of telemetry post operatively and will need BIPAP available in the recovery room for immediate use. IS. Code Visit Inpatient E&M: 58085 Init Hosp L3
[2019-07-04] MEDS: Acetaminophen 500 MG Tablet 1000 MG PO ×2 (13:25→20:50)
--- NOTE | 2019-07-04 13:25 | REHABEVAL_ITS ---
Admission Information Primary Diagnosis:: debility due to Left ankle fracture Status Changes from Prescreening?: No changes Identified Actual Problem List:: Falls, Skin Intergrity, Pain, ALteration in Cmfrt, Alteration in Sleep, Mobility Impaired, Self Care Deficit Potential Problem List:: DVT, Bleeding, Infection, UTI, Falls, Skin Integrity, Depression Risk of Complications DVT: LMWH, TALON Hose Bleeding: Monitor Lab Values, Nursing to Teach Precautions for anti-coagulation therapy., Wound, if applicable, to be assessed every shift., Stroke patients assessed for lethargy or change in status. Infection: Clinical Staff to Monitor for S/S of infection:, S/S of infection include fever, redness, warmth, etc. Urinary Tract Infection: Monitor for frequency, burning, discomfort, or incontinence., Nursing will obtain urine sample for urinalysis and C&S when ordered. Aspiration: Clinical staff will monitor for coughing, drooling, congestion., Speech will evaluate swallowing and dsyphasia., Nursing will monitor patient swallowing during meals. Falls: Patient will be evaluated for Fall Precautions, Patient will be placed on Fall Precautions as indicated per protocol. Skin Breakdown: Nursing will assess skin daily using assessment tool., Nursing will place on Skin Breakdown Precautions as indicated. Pain: Clinical staff will assess patient's pain level per protocol., Medications will be given, if needed, and the pain level reassessed., Other methods: Massage, distraction, decrease stimulus, etc. used PRN. Plan of Care Patient requires physician specializing in physical medicine and rehab oversight to provide close medical supervision of rehab issues including: Pain Management, Sleep Problems, Bowel and Bladder, Medical and co-morbidity Management, DVT prophylaxis, Rehabilitation Leadership, Coordination of treatment team Patient needs Physical Therapy: For a minimum of 1 hour, At least 5 out of 7 days Patient needs Physical Therapy to improve:: Mobility, Mobility, Mobility, Strengthening, Transfers, Stretching, ROM, Endurance, Stairs, Gait, Balance Patient needs Occupational Therapy: For a minimum of 1 hour, At least 5 out of 7 days Patient needs Occupational Therapy to improve ADL's incl.: Eating, Grooming, Bathing, Dressing, Toileting, Toilet transfers, Community Reintegration, Higher functioning activities, Household tasks, Adaptive Equipment, Splinting, Other activities as determined Patient requires 24/ Rehabilitation Nursing for: Pain Issues, Identifying and preventing risk factors, Monitoring and reporting current medical conditions, Assisting with ambulation, transfer, and all ADL's, Teaching patients about disease process and medications, Family teaching, Providing safe environment, Bowel and Bladder Issues, Skin integrity, Medication Management Patient needs Central Control Room Operator/ Case Management for: Discharge Planning, Arr anging Home Equipment or Services, Family Interventions Patient needs Dietary and Nutrition Services for: Adequate Nutrition, Nutritional Supplements, Nutritional Education Goals Patient will remain: free from falls, or injury at time of discharge. Patient will perform bed mobility at: MOD I level of assist. Patient will complete transfers from bed to chair at: MOD I level of assist. Patient will ambulate: 100 feet, with MOD I assist, with LRD Patient will complete upper body dressing at: MOD I level of assist. Patient will complete lower body dressing at: MOD I level of assist. Patient will complete toileting at: MOD I level of assist. Patient will perform bathing at: MOD I level of assist. Patient will complete grooming at: MOD I level of assist. Patient will complete home management skills at: MOD I level of assist. Patient will achieve: 12 stairs, at MOD I assist Patient will have pain level of: of 3 or less Patient's skin will: remain intact, free from infection. Patient will receive: adequate nutrition. Discharge Planning Pt Prognosis for Sig. Practical Improv. w/in Reasonable Time: Good Estimated Length of stay (days): 10 Anticipated D/C Destination: Home with Home Health
--- NOTE | 2019-07-04 16:05 | CASEMGMT ---
Social Work Reviewed and agreed with social work manager of international documentation on this date. Lexi Suresh, CLAIM PROFESSIONAL ARMATURE WINDER REPAIR HELPER
[2019-07-04 22:00] VITALS: BP 110/51; PULSE 70; RESP 16; TEMP 36.8; O2SAT 93
[2019-07-05] MEDS: Acetaminophen 500 MG Tablet 1000 MG PO ×3 (05:19→20:17)
[2019-07-05] MEDS: Levothyroxine 75 MCG Tablet PO (05:19)
[2019-07-05 07:54] VITALS: BP 106/55; PULSE 65; RESP 18; TEMP 36.7; O2SAT 93
[2019-07-05] MEDS: Omega-3 Acid Ethyl Esters 1 GM Capsule PO (07:58)
[2019-07-05] MEDS: Multivitamins,Ther W-Minerals Tablet 1 TABLET PO (07:58)
[2019-07-05] MEDS: Calcium Carb/Vitamin D 1 TABLET Tablet PO (07:58)
[2019-07-05] MEDS: Furosemide 40 MG Tablet PO ×2 (07:58→16:56)
[2019-07-05 07:59] VITALS: PULSE 65
[2019-07-05] MEDS: Metoprolol(XL)Succ 25 MG Tablet PO (07:59)
[2019-07-05 08:16] VITALS: O2SAT 90
[2019-07-05 19:32] VITALS: BP 132/69; PULSE 73; RESP 18; TEMP 36.7; O2SAT 92
[2019-07-06] MEDS: oxyCODONE 5 MG Tablet PO (00:08)
[2019-07-06] MEDS: Levothyroxine 75 MCG Tablet PO (05:38)
[2019-07-06] MEDS: Acetaminophen 500 MG Tablet 1000 MG PO ×3 (05:38→20:21)
[2019-07-06] MEDS: Multivitamins,Ther W-Minerals Tablet 1 TABLET PO (07:44)
[2019-07-06] MEDS: Omega-3 Acid Ethyl Esters 1 GM Capsule PO (07:44)
[2019-07-06] MEDS: Furosemide 40 MG Tablet PO ×2 (07:44→16:46)
[2019-07-06 07:47] VITALS: BP 135/61; PULSE 66
[2019-07-06] MEDS: Metoprolol(XL)Succ 25 MG Tablet PO (07:47)
[2019-07-06] MEDS: Calcium Carb/Vitamin D 1 TABLET Tablet PO (07:52)
[2019-07-06 07:53] VITALS: BP 135/61; PULSE 66; RESP 18; TEMP 36.6; O2SAT 93
[2019-07-06 19:25] VITALS: BP 105/53; PULSE 73; RESP 16; TEMP 36.6; O2SAT 92
[2019-07-06] MEDS: Menthol/Lanolin/Calamine/Znox 113 GM Tube 1 APPLIC TOPICAL (20:24)
[2019-07-07] MEDS: Acetaminophen 500 MG Tablet 1000 MG PO ×3 (05:36→21:26)
[2019-07-07] MEDS: Levothyroxine 75 MCG Tablet PO (05:36)
[2019-07-07] MEDS: Multivitamins,Ther W-Minerals Tablet 1 TABLET PO (07:49)
[2019-07-07] MEDS: Furosemide 40 MG Tablet PO ×2 (07:50→17:07)
[2019-07-07] MEDS: Omega-3 Acid Ethyl Esters 1 GM Capsule PO (07:50)
[2019-07-07] MEDS: Calcium Carb/Vitamin D 1 TABLET Tablet PO (07:50)
[2019-07-07 07:51] VITALS: PULSE 77
[2019-07-07] MEDS: Metoprolol(XL)Succ 25 MG Tablet PO (07:51)
[2019-07-07] MEDS: Menthol/Lanolin/Calamine/Znox 113 GM Tube 1 APPLIC TOPICAL ×2 (07:52→21:31)
[2019-07-07 09:08] VITALS: BP 136/65; PULSE 71; RESP 16; TEMP 36.5; O2SAT 91
--- NOTE | 2019-07-07 09:35 | CASEMGMT ---
Social Work IDT met with patient and sister for Team Meeting. Discussed patient's progress in therapy. Pt is NWB to left food and the plan is for pt to have surgery 07/08. Pt walked 20 ft with FWW but fatigued quickly. Pt is min assist for transfers, CGA for sitting to standing, while seated pt is set up for UE dressing and grooming, min asssit for LE dressing. Pt has poor balance and cannot manage ADLs if standing. Explained Medicare benefits and days will reset after surgery and readmit. Will continue to follow. GALA Nguyen MANAGER ANALYTICAL
--- NOTE | 2019-07-07 16:10 | CHAPLAIN ---
Type of Pastoral Visit _x__ Initial Visit ___ Follow-up Visit ___ On-call Visit ___ General Patient Visit ___ Spiritual Assessment ___ Family Conference ___ Bereavement ___ Rapid Response ___ Code Blue ___ Other (describe below) Pastoral Care Referral From _x__ Patient ___ Family ___ Nurse ___ Physician ___ Cargo Worker ___ [place] ___ Other (describe below) Sacrament/Intervention _x__ Active listening ___ Anointing ___ Shinto ___ Bereavement ___ Communion ___ Nakita exploration ___ _x__ Life review _x__ Prayer ___ Reconciliation ___ Sacrament of Sick ___ Supportive presence ___ Wedding ___ Other (describe below) Pastoral Comments
[2019-07-07] MEDS: Enoxaparin 40 MG/0.4 ML Syringe SC (16:24)
[2019-07-07 17:41] VITALS: O2SAT 90
[2019-07-07 19:39] VITALS: BP 115/47; PULSE 77; RESP 16; TEMP 36.7; O2SAT 93
[2019-07-08] MEDS: Levothyroxine 75 MCG Tablet PO (05:04)
[2019-07-08] MEDS: Acetaminophen 500 MG Tablet 1000 MG PO ×3 (05:04→20:44)
[2019-07-08 05:53] LABS: Absolute Lymphocyte Count 2.09 X10^3/uL (0.83-4.51); Basophil# 0.07 X10^3/uL; Eosinophil# 0.41 X10^3/uL; Eosinophils% 5.6 % (0-5); Hematocrit 36.2 % (37-47); Hemoglobin 11.3 g/dL (12.0-15.0); Lymphocyte # 2.09 X10^3/ul (4.0); Lymphocyte % 28.5 % (19-41); Mean Corp Hgb Conc 31.2 g/dL (32-36); Mean Corpuscular Hgb 31.8 pg (27.0-32.0); Mean Platelet Vol. 9.7 fl (6.2-12.0); Monocyte# 0.66 X10^3/uL; NRBC Flagged by Analyzer 0 % (0-5); Neutrophil # 4.02 X10^3/uL (2.7-7.7); Neutrophil % 54.8 % (47-70); Platelet Count 279 K/mm3 (150-450); RBC Distribution Width CV 13.2 % (11.6-14.6); RBC Distribution Width SD 49.8 fl (35.1-43.9); Red Blood Count 3.55 M/mm3 (4.2-5.4); White Blood Count 7.3 K/mm3 (4.4-11.0)
[2019-07-08 06:06] LABS: Anion Gap 6 (5-15); BUN 23 mg/dL (7-18); BUN/Creat Ratio 26.1 RATIO (10-20); Calcium,Total 9.1 mg/dL (8.5-10.1); Chloride 101 mmol/L (98-107); Creatinine, Serum 0.88 mg/dL (0.55-1.02); EST Glomerular Filtration Rate 65 mL/min (>60); Est Glom Filt Rate - Afr Amer 79 mL/min (>60); Estimated Creatinine Clearance 38.98 ml/min; Glucose 96 mg/dL (74-106); Magnesium 2.2 mg/dL (1.6-2.6); Potassium 3.8 mmol/L (3.5-5.1); Sodium Level 139 mmol/L (136-145)
[2019-07-08 06:19] VITALS: O2SAT 92
[2019-07-08 07:08] VITALS: BP 120/57; PULSE 66; RESP 16; TEMP 36.4; O2SAT 95
[2019-07-08] MEDS: Multivitamins,Ther W-Minerals Tablet 1 TABLET PO (07:48)
[2019-07-08] MEDS: Furosemide 40 MG Tablet PO ×2 (07:48→17:00)
[2019-07-08] MEDS: Omega-3 Acid Ethyl Esters 1 GM Capsule PO (07:48)
[2019-07-08 07:49] VITALS: PULSE 74
[2019-07-08] MEDS: Metoprolol(XL)Succ 25 MG Tablet PO (07:49)
[2019-07-08] MEDS: Calcium Carb/Vitamin D 1 TABLET Tablet PO (07:49)
[2019-07-08] MEDS: Psyllium 1 PACKET PO (07:49)
[2019-07-08] MEDS: Menthol/Lanolin/Calamine/Znox 113 GM Tube 1 APPLIC TOPICAL ×2 (07:58→20:43)
[2019-07-08 08:28] LABS: Hemoglobin A1c 5.3 % (4.2-6.3)
--- NOTE | 2019-07-08 10:49 | CASEMGMT ---
Social Work Met with pt to discuss palliative care. Pt declined at this time. Gabbi Black, social work architectural intern Lexi Suresh, DRAGLINE OILER E D TECH
[2019-07-08] MEDS: Enoxaparin 40 MG/0.4 ML Syringe SC (11:01)
--- NOTE | 2019-07-08 11:47 | PN.ORTHO_ITS ---
Patient Problems: Active and Suspected Problems (Last Reviewed 07/07/19 @ 12:05 by Cecille Brito DO) Physical debility (Acute) due to closed L ankle fracture due to fall Subjective: Patient states that she she is doing well today. She states that she has not really been having anymore pains. She states that she can still wiggle her toes just fine and that she has been going to rehab twice daily without any problems. She denies any calf pains, shortness of breath, chest pains, nausea or other symptoms. She has no other concerns at this time and is hoping to proceed with surgery tomorrow. Objective: Patient is sitting up in her chair for exam and has no evidence of distress or acute pains. She is alert and oriented x 3 and is very pleasant in conversation. Dressing was taken down anteriorly to evaluate swelling. She still has some mild puffiness in the foot at the same time she has a positive wrinkle sign with dorsiflexion of the ankle. There are still evident blisters noted anteriorly, medially, and laterally. The anterior blister has broken open and has some overlying scabbing noted. There is no surrounding erythema, warmth, discharge, or tenderness to indicate infection. She has intact sensation in the foot and intact motor function of the ankle, foot, and toes. She has good 2+distal pedal pulses. - Physical Exam Vitals/I&O's: Vital Signs Temp Pulse Resp BP Pulse Ox 97.5 F L 74 16 120/57 L 95 07/08/19 07:08 07/08/19 07:49 07/08/19 07:08 07/08/19 07:08 07/08/19 07:08 Oxygen Flow Rate (L/min) 2 Oxygen Delivery Method Room Air Weight: 179 lb Body Mass Index (BMI) 31.4 Intake and Output for Last 24 Hours 07/06/19 07/07/19 07/08/19 23:59 23:59 23:59 Intake Total 1180 / 1180 1240 / 1240 240 / 240 Output Total 300 / 300 1300 / 1300 350 / 350 Balance 880 / 880 -60 / -60 -110 / -110 General: Alert, Oriented x3, Cooperative, No apparent distress, Well developed Lungs: Normal air movement Skin: Ulcer/ Wound - evident blisters noted medially, laterally, and anteriorly. Anterior blisted has ruptured at the same time has no signs of infection. Musculoskeletal: Tenderness - still mild lateral ankle tenderness Laboratory Results 07/08/19 05:44: WBC 7.3, RBC 3.55 L, Hgb 11.3 L, Hct 36.2 L, MCV 102.0 H, MCH 31.8, MCHC 31.2 L, RDW Std Deviation 49.8 H, RDW Coeff of Junior 13.2, Plt Count 279, MPV 9.7, Immature Gran % (Auto) 1.100 H, Neut % (Auto) 54.8, Lymph % (Auto) 28.5, Glasscock % (Auto) 9.0, Eos % (Auto) 5.6 H, Baso % (Auto) 1.0, Absolute Neuts (auto) 4.0, Absolute Lymphs (auto) 2.09, Nucleated RBC % 0 07/08/19 05:44: Sodium 139, Potassium 3.8, Chloride 101, Carbon Dioxide 32.0, Anion Gap 6, BUN 23 H, Creatinine 0.88, Estim Creat Clear Calc 38.98, Est GFR (MDRD) Af Amer 79, Est GFR (MDRD) Non-Af 65, BUN/Creatinine Ratio 26.1 H, Glucose 96, Calcium 9.1, Magnesium 2.2 07/08/19 05:44: Hemoglobin A1c 5.3 Current Medications Acetaminophen (Tylenol) 1,000 mg PO Q8 [facility] Last Admin: 07/08/19 05:04 Dose: 1,000 mg Documented by: Bisacodyl (Dulcolax) 10 mg RECTAL .PRN X 1 PRN PRN Reason: Constipation Calamine/Phenol (Calmoseptine Ointment) 1 applic TOPICAL BID [facility]; Protocol Last Admin: 07/08/19 07:58 Dose: 1 applicatio Documented by: Calcium/Vitamin D (Os-Mikael 500mg + D) 1 tablet PO DAILY [facility] Last Admin: 07/08/19 07:49 Dose: 1 tablet Documented by: Cholecalciferol (Vitamin D) 1,000 unit PO DAILY [facility] Last Admin: 07/08/19 07:50 Dose: 1,000 unit Documented by: Enoxaparin Sodium (Lovenox) 40 mg SC DAILY [facility] Last Admin: 07/08/19 11:01 Dose: 40 mg Documented by: Furosemide (Lasix) 40 mg PO BIDLX [facility] Last Admin: 07/08/19 07:48 Dose: 40 mg Documented by: Levothyroxine Sodium (Synthroid) 75 mcg PO DAILY@0600 [facility] Last Admin: 07/08/19 05:04 Dose: 75 mcg Documented by: Magnesium Hydroxide (Milk Of Magnesia) 30 ml PO .PRN X 1 PRN PRN Reason: Constipation Metoprolol Succinate (Toprol Xl (Beta Evelio)) 25 mg PO DAILY [facility] Last Admin: 07/08/19 07:49 Dose: 25 mg Documented by: Multivitamins/Minerals (Multivitamin With Minerals (Bkc)) 1 tablet PO DAILY@0800 [facility] Last Admin: 07/08/19 07:48 Dose: 1 tablet Documented by: Pipas-6-Svff Ethyl Esters (Lovaza) 1 gm PO DAILY [facility] Last Admin: 07/08/19 07:48 Dose: 1 gm Documented by: Oxycodone HCl (Oxyir) 5 mg PO Q4H PRN PRN PRN Reason: Pain Score 6-10/10 Last Admin: 07/06/19 00:08 Dose: 5 mg Documented by: Potassium Chloride (K-Dur) 10 meq PO BID [facility] Last Admin: 07/08/19 07:48 Dose: 10 meq Documented by: Psyllium Hydrophilic Mucilloid (Metamucil) 1 packet PO DAILY [facility] Last Admin: 07/08/19 07:49 Dose: 1 packet Documented by: Senna/Docusate Sodium (Senokot-S, Treva-Colace) 2 tablet PO BID PRN PRN Reason: CONSTIPATION Medical Necessity - Tobacco Use Smoking Status: Never smoker Tobacco Use: Non-smoker Assessment/Plan All Active Problems (Last Reviewed 07/07/19 @ 12:06 by Cecille Brito DO) Closed fracture dislocation of left ankle joint (Acute) Physical debility (Acute) History of aortic valve replacement with bioprosthetic valve (Resolved 05/06/12) Patient has remained in rehab awaiting ORIF with syndesmotic screw placement of her left ankle while the swelling has subsided. At this time there is some mild swelling of the anterior foot at the same time there has been good improvement in her swelling and she has a positive wrinkle sign with dorsiflexion of the ankle. Blisters are still present and will have to likely alter incision placeme nt due to location of the lateral blister. She continues to have intact sensation in the extremity and intact motor function of the ankle/foot/toes. At this time the plan is to proceed with ORIF of the ankle tomorrow morning. So we want to make sure and elevate her leg as much as possible today to reduce swelling as much as much as we can pre-op. She can continue to use polar ice on the anterior foot/ankle. She can go to PT/OT this afternoon and maybe work on some fluid/edema reduction. She will need to hold her Lovenox tomorrow morning. Notify of any other concerns or complaints
[2019-07-08 18:52] VITALS: BP 130/60; PULSE 80; RESP 18; TEMP 36.6; O2SAT 93
--- NOTE | 2019-07-08 20:48 | NURSING ---
clinical trials systems administrator early per pt request to enable early and uninterrupted bedtime.
[2019-07-09 05:26] VITALS: BP 128/62; PULSE 66; RESP 16; TEMP 36.4; O2SAT 16
== END 2019-07-09 06:25 | disposition short-term general hospital (02) | DRG 560 ==
PROVIDERS: Admitting Provider Internal Medicine; PCP Family Medicine; Referring Provider Internal Medicine; Visit Provider Internal Medicine
DX: S82.892D Other fracture of left lower leg, subsequent encounter for closed fracture with routine healing (principal); I50.32 Chronic diastolic (congestive) heart failure; W19.XXXD Unspecified fall, subsequent encounter; Z95.3 Presence of xenogenic heart valve; I11.0 Hypertensive heart disease with heart failure; I27.21 Secondary pulmonary arterial hypertension; G47.33 Obstructive sleep apnea (adult) (pediatric); E03.9 Hypothyroidism, unspecified; E66.9 Obesity, unspecified; Z68.31 Body mass index [BMI] 31.0-31.9, adult
CPT/HCPCS: 36415; 80048; 83036; 83735; 85025; 97110; 97116; 97162; 97166; 97530; 97535; 97802; 99251; J7120; G0463

== ENCOUNTER 2019-07-09 09:00 | Inpatient (IN) | payer MEDICARE, OTHER, SELFPAY ==
[2019-07-03 16:01] VITALS: BMI 31.4
[2019-07-09] VITALS (18 sets, daily range): BP systolic 91–121; BP diastolic 42–85; PULSE 65–91; RESP 14–18; TEMP 36.8–37.1; O2SAT 90–100; BMI 31.8
[2019-07-09] MEDS: Lactated Ringers 1,000 ML 100 ML IV ×2 (07:01→17:55)
--- NOTE | 2019-07-09 07:30 | RAD_ITS ---
STUDY: X-RAY - LEFT ANKLE REASON FOR EXAM: ORIF left ankle. TECHNIQUE: 3 intraoperative images of the ankle. COMPARISON: Radiographs 06/30/2019. FINDINGS: There is an orthopedic plate and screws transfixing a distal fibular fracture in anatomic alignment and position. There is a nondisplaced posterior malleolar fracture. There are syndesmotic screws. 33.9 seconds of fluoroscopy time was used. Electronically Signed: Clyde Irizarry MD at 12:17 EST Tel , Service support , RAD/Ankle 2 Views
[2019-07-09] MEDS: Cefazolin 2 GM in 0.9% Normal Saline 100 ML IV (07:44)
[2019-07-09] MEDS: Mupirocin Ointment 22gm Tube 1 APPLIC (08:42)
--- NOTE | 2019-07-09 09:03 | HP.PCM_ITS ---
Problem List (1) Closed fracture dislocation of left ankle joint Status: Acute Qualifiers: Encounter type: subsequent encounter History and Physical Date of Admission: 07/09/19 Patient is an 84-year-old female with significant comorbidities who had a fracture dislocation about over a week ago she was reduced in the emergency room has significant swelling she was further closed reduced for better reduction in the operating room a few days later. However due to the swelling went determination was made to transfer to rehab so that the swelling was reduced and she was a better candidate for operative indications. Patient seen yesterday she had positive wrinkle test and decision was made to take her to the operating room today. Patient is followed closely by medicine and she has multiple medical comorbidities and was cleared by medicine for operative intervention. Code Visit [id number]: Other Procedure See Report - ORIF [facility]
--- NOTE | 2019-07-09 09:04 | OP.PCM_ITS ---
Report of Operation Date of Procedure: 07/09/19 Pre-Operative Diagnosis: left trimalleolar frx dislocation, fracture blisters Post-Operative Diagnosis: same Surgery/Procedure Performed:: orif left trimalleolar fracture with synthes 1/3 tubular plate and syndesmotic screws, irrigation/debridement of fracture blisters associate professor of biblical studies: Vega Kwon Type of Anesthesia:: General/Regional Anesthesiologist: Israel Woods Specimen's removed: tt-72min Estimated Blood Loss (mL): 15cc ebl Fluids Replaced: 900cc Description of Procedure: Preop note Patient is a 4-year-old female who sustained a fracture dislocation of her left ankle was reduced in the emergency room however did the fact that she is still displaced increased medial clear space we did take her to the operating room and re-reduce her about a week ago she was too swollen for surgery at that time she was admitted to the rehab floor and elevated she had positive wrinkle sign yesterday and decision was made to proceed with surgery despite the fact that she has some blisters near the fracture site incision. Discussed risk benefits alternatives surgery with family. Risk including but not limited to blood loss, blood clot, infection, neurovascular, failure procedure, loss of life and loss of limb. Patient is aware would like to proceed with left ankle open reduction internal fixation. Discussed also risk for arthritis developing postoperatively and to fracture despite treatment. Operative note Patient seen and examined preoperative holding area. Left leg was marked. Patient brought to the operating room and placed supine on the operating table. Signed, anesthesia, antibiotics were administered. The left leg was prepped and draped in usual sterile fashion with a tourniquet around her upper thigh. All bony prominences well-padded and SCDs placed on her contralateral limb. We marked out our incision using fluoroscopy to ascertain the level of the fracture of the left leg was then elevate exsanguinated and tourniquet was raised her pressure of 250 torr. Timeout was performed. We extended our incision over the lateral aspect of the fibula about an 8 cm incision to the 9 cm incision total in length. We then use a 15 blade cut for the skin dissected down tenotomies of the fracture site the fracture site was then debrided and all blood was coagulated hematoma was debrided as well with a combination of freer elevator and dental pick. We then irrigated the fracture with copious amounts of sterile saline. We used 2 lobster claws with Shanna traction and rotation to further reduce the fracture site. After this we did place a lag screw ADP placing appropriately at over joint 3 5 and then into 5 across the distal piece of the fracture. We then had good reduction of our fracture site and good hold with the lag screw we then placed a lateral plate pre-and we did bend it to fit the slope of the lateral distal to the fibula. We then placed a 6 screw to 3 5 screw just prior proximal to the fracture site and then placed a locking screw distal to hold the plate in center center position over the fibula. We then placed tomorrow 3 5 screws proximal to the most proximal aspect of the 8 hole plate. We then placed 1 more distal locking screw in the distal second to distalmost screw in order to make sure that we did not encroach the joint. We then reduced the syndesmosis and then placed 235 cortical screws we were not able to place the more distal 1 as it was gone through the fracture site at the level of the site of the lag screw so we did place a little bit more proximally then we would like however for load sharing and to reduce the fracture the fibula to the tibia and to maintain reduction of our syndesmosis and we had good reduction and maintenance of this after both screws were applied and drilled through the screw through the plate. We then irrigate with copious muscle sterile saline. We closed the periosteum over the plate plate. We placed with 2-0 Vicryl we closed the skin with subcuticular 3-0 Vicryl and the skin with a 3-0 nylon. Sterile dressings were applied. We also debrided the fracture blister sites and applied Xeroform extensively throughout there is a circumferential blister that started on the anterior lateral and wrapped around posterior medial as well. We placed and we then please note that prior to closure he did take multiple images AP and lateral planes ensure good reduction and maintenance of our reduction. Again we did debride the fracture blisters irrigated and placed appropriate dressing and then a posterior splint on the left ankle. Patient taught procedure well no complication transfer recovery room in stable condition patient did receive a postoperative regional block. Postoperative note Nonweightbearing left leg Call with increased pain, numbness, tingling or further issues arise Admitted for pain control and antibiotics Disposal transfer to rehab when appropriately medically stable Call with increased pain numbness tingling further issues arise This note was generated with Surgientation software. It may contain incorrect words, spelling, and punctuation that were not noted in checking the note before signing. Grafts/Implants Used: synthes 1/3 tubular plate/ 3.5 syndesmosis screws
--- NOTE | 2019-07-09 09:04 | DCINST_ITS ---
Discharge Diet: No Restrictions - leave splint in place, elevate toes above nose, ice prn, non weight bearing left leg Discharge Activity: May Not Drive May shower in (days): 1 Ice area for (Minutes): 20 - Every hour while awake. Weight Bearing Status: Weight bearing as tolerated Keep extremity elevated above heart level: Operative Extremity Call your doctor if your incision/area has: Continuous Slow Oozing, Sudden Increased Bleeding, Increased Pain/ Swelling, Increased Redness, Foul Smelling Discharge Call your doctor if you observe: Fever of 101 or Higher, Coldness, Increased Pa in, Numbness or Tingling, Change in Color, Calf discomfort Allergies/Adverse Reactions: Allergies aspirin Allergy (Verified 07/09/19 07:06) made my blood too thin hydrocodone [From Vicodin] Allergy (Verified 07/09/19 07:06) Unknown niacin Adverse Reaction (Verified 07/09/19 07:06) severe sweating simvastatin Adverse Reaction (Verified 07/09/19 07:06) muscle aches Medications to take at Discharge Calcium Carbonate/Vitamin D3 [Calcium 600-Vit D3 800 Tablet] 1 tab PO DAILY 06/30/19 Cholecalciferol (VIT D3) [Vitamin D3] 1,000 unit PO DAILY 06/30/19 Furosemide [Lasix] 40 mg PO BID 06/30/19 Levothyroxine [Synthroid] 75 mcg PO DAILY 06/30/19 Metoprolol Succinate 25 mg PO DAILY 06/30/19 Multivitamin with Minerals [One Daily Plus Minerals] 1 tab PO DAILY 06/30/19 [place]-3 Fatty Acids [Fish Oil] 2 tab PO DAILY 06/30/19 Potassium Chloride [K-Dur] 10 meq PO BID 06/30/19 Psyllium [Metamucil] 1 packet PO DAILY 06/30/19 Primary Care Physician: Jimbo Koch III, MD [Primary Care Provider] - Test Results: Test results from this visit will be discussed in further detail at your follow- up appointment, if applicable. Please Follow Up With: Ana Laura De Luna, DO - [phone]
--- NOTE | 2019-07-09 09:15 | HP.PCM_ITS ---
Problem List (1) Closed fracture dislocation of left ankle joint Status: Acute Qualifiers: Encounter type: subsequent encounter History of Present Illness Date of Admission: 07/09/19 - s/p orif left ankle The patient is a 84 year old F Patient is an 84-year-old female with significant comorbidities who had a fracture dislocation about over a week ago she was reduced in the emergency room has significant swelling she was further closed reduced for better reduction in the operating room a few days later. However due to the swelling went determination was made to transfer to rehab so that the swelling was reduced and she was a better candidate for operative indications. Patient seen yesterday she had positive wrinkle test and decision was made to take her to the operating room today. Patient is followed closely by medicine and she has multiple medical comorbidities and was cleared by medicine for operative intervention. will be admitted to [facility] with bipap to start in pacu.[] Past Medical History Past Medical History (Chronic Problems): Chronic Problems (Last Reviewed 07/07/19 @ 12:05 by Cecille Brito DO) Polio (Chronic) when she was a child < 12 ANDRY (obstructive sleep apnea) (Chronic) She is on BIPAP with oxygen bleed in at night....follows with Dr. Paul Grade I diastolic dysfunction (Chronic) Secondary pulmonary arterial hypertension (Chronic) Estimated PA systolic in April 2018 was 42 mmHg. Chronic diastolic (congestive) heart failure (Chronic) Essential (primary) hypertension (Chronic) Non-rheumatic aortic stenosis (Chronic) AVR 05/06/12 Medical History: Medical History (Last Reviewed 07/07/19 @ 12:05 by Cecille Brito DO) Secondary pulmonary arterial hypertension (Chronic) I27.21 Estimated PA systolic in April 2018 was 42 mmHg. Chronic diastolic (congestive) heart failure (Chronic) I50.32 Essential (primary) hypertension (Chronic) I10 Non-rheumatic aortic stenosis (Chronic) I35.0 AVR 05/06/12 Hypothyroidism E03.9 Obesity E66.9 Obstructive sleep apnea G47.33 Vertigo R42 Allergies aspirin Allergy (Verified 07/09/19 07:06) made my blood too thin hydrocodone [From Vicodin] Allergy (Verified 07/09/19 07:06) Unknown niacin Adverse Reaction (Verified 07/09/19 07:06) severe sweating simvastatin Adverse Reaction (Verified 07/09/19 07:06) muscle aches Home Medications: Ambulatory Orders Medication Instructions Recorded Calcium Carbonate/Vitamin D3 1 tab PO DAILY 06/30/19 [Calcium 600-Vit D3 800 Tablet] Cholecalciferol (VIT D3) [Vitamin 1,000 unit PO DAILY 06/30/19 D3] Furosemide [Lasix] 40 mg PO BID 06/30/19 Levothyroxine [Synthroid] 75 mcg PO DAILY 06/30/19 Metoprolol Succinate 25 mg PO DAILY 06/30/19 Multivitamin with Minerals [One 1 tab PO DAILY 06/30/19 Daily Plus Minerals] [place]-3 Fatty Acids [Fish Oil] 2 tab PO DAILY 06/30/19 Potassium Chloride [K-Dur] 10 meq PO BID 06/30/19 Psyllium [Metamucil] 1 packet PO DAILY 06/30/19 Surgical History: Surgical History (Last Reviewed 07/07/19 @ 12:06 by Cecille Brito DO) History of aortic valve replacement with bioprosthetic valve (Resolved) Onset Date: 05/06/12 Z95.4 AVR with #21 [facility] 05/06/12 History of parathyroidectomy Z98.890 History of right and left heart catheterization Onset Date: 09/01/11 Z98.890 History of tonsillectomy and adenoidectomy Z98.890 Hx of cholecystectomy Z90.49 H/O breast biopsy (Inactive) Z98.890 H/O colonoscopy (Inactive) Z98.890 Surgical History: - - AVR Psychiatric History: Anxiety, Depression [employer]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 Denies: Joint Tenderness Skin: Denies: Rash, Wounds Neurological: Denies: Numbness, Tingling, Focal weakness Psychiatric: Denies: Anxiety, Depression, Homicidal Ideations, Suicidal Ideations Hematologic/ Lymphatic: Denies: Easy Bruising, Easy Bleeding VTE Information - Inpt Only VTE Present on Admission: Yes VTE Mechan Device Prophylaxis: SCD's VTE Pharm Prophylaxis ordered?: Yes - Physical Exam Vitals/I&O's: Vital Signs Temp Pulse Resp BP Pulse Ox 98.5 F 71 15 104/42 L 93 07/09/19 06:51 07/09/19 06:51 07/09/19 06:51 07/09/19 06:51 07/09/19 06:51 Oxygen Delivery Method Room Air Weight: 174 lb Body Mass Index (BMI) 31.8 General: Alert, Oriented x3, Cooperative HEENT: Atraumatic, PERRLA, EOMI, Normocephalic Neck: Supple, No JVD, Negative Carotid Bruits Lungs: Clear to auscultation, Normal air movement Cardiovascular: Regular rate, No murmurs Abdomen: Bowel Sounds Present, Soft, Non Tender Extremities: No edema, Capillary Refill Less than 3 Seconds Skin: No rashes, No breakdown Musculoskeletal: Tenderness - Left ankle, circumferential blood and fracture blisters, sensxn grossly intact Neurological: Cranial nerves II-XII grossly intact Psych/Mental Status: Normal Affect, Appropriate Current Medications Hydrocodone Bitart/Acetaminophen ([place] 5mg-325mg) 1 - 2 tablet PO Q6H PRN PRN PRN Reason: Pain Score 1-5/10 Enoxaparin Sodium (Lovenox) 40 mg SC DAILY@0600 [facility] Lactated Ringer's () 1,000 mls @ 100 mls/hr IV .Q10H [facility] Last Admin: 07/09/19 07:01 Dose: 100 mls/hr Documented by: Cefazolin Sodium () 1 gm in 50 mls @ 150 mls/hr IV Q8 [facility] Stop: 07/09/19 22:19 Prochlorperazine Edisylate (Compazine Iv) 5 - 10 mg IV Q6H PRN PRN PRN Reason: Nausea/vomiting Assessment/Plan All Active Problems (Last Reviewed 07/07/19 @ 12:06 by Cecille Brito DO) Closed fracture dislocation of left ankle joint (Acute) Physical debility (Acute) History of aortic valve replacement with bioprosthetic valve (Resolved 05/06/12) Patient is an 84-year-old fracture-dislocation of her left ankle was closed reduced by ER then closed reduced in the operating room due to swelling she was followed for a week with elevation today she was taken and will be taken to the operating room for definitive fixation Consent in chart Ancef 2 g on-call to the OR Admit to [facility] after antibiotics complete okay for transfer to rehab Call with increased pain numbness tingling or other issues arises Dennis or anticoagulation per medicine Medical co-management Physical therapy/Occupational Therapy nonweightbearing left leg This note was generated with [employer] dictation software. It may contain incorrect words, spelling, and punctuation that were not noted in checking the note before signing.
[2019-07-09] MEDS: Levothyroxine 75 MCG Tablet PO (16:43)
[2019-07-09] MEDS: Cefazolin 1 GM/50 ML BAG IV (16:43)
--- NOTE | 2019-07-09 17:39 | PN_ITS ---
<Kirsten Lutz - Last Filed: 07/09/19 18:00> Subjective: Patient seen and examined. Denies left ankle pain. Denies shortness of breath or other current complaints. - Physical Exam Vitals/I&O's: Vital Signs Temp Pulse Resp BP Pulse Ox 98.4 F 74 18 98/53 L 100 07/09/19 16:48 07/09/19 16:48 07/09/19 16:48 07/09/19 16:48 07/09/19 16:48 Oxygen Flow Rate (L/min) 2 Oxygen Delivery Method Nasal Cannula Weight: 174 lb Body Mass Index (BMI) 31.8 Intake and Output for Last 24 Hours 07/07/19 07/08/19 07/09/19 23:59 23:59 23:59 Intake Total 1828.33 / 1828.33 Output Total 400 / 400 Balance 1428.33 / 1428.33 General: Alert, Oriented x3, Cooperative HEENT: Atraumatic, PERRLA, EOMI, Normocephalic Neck: Supple, No JVD, Negative Carotid Bruits Lungs: Clear to auscultation, Normal air movement Cardiovascular: Regular rate, Regular Rhythm, Normal S1, Normal S2, No murmurs Abdomen: Bowel Sounds Present, Soft, Non Tender Extremities: No clubbing, No cyanosis, No edema, Capillary Refill Less than 3 Seconds Skin: No rashes, No breakdown, - - Left ankle postop dressing intact Musculoskeletal: No Tenderness to Palpation of Joints or Extremities Neurological: Cranial nerves II-XII grossly intact, Neuro grossly intact Psych/Mental Status: Normal Affect, Appropriate Current Medications Hydrocodone Bitart/Acetaminophen ([place] 5mg-325mg) 1 - 2 tablet PO Q6H PRN PRN PRN Reason: Pain Score 1-5/10 Enoxaparin Sodium (Lovenox) 40 mg SC DAILY@0600 [facility] Lactated Ringer's () 1,000 mls @ 100 mls/hr IV .Q10H [facility] Last Infusion: 07/09/19 17:00 Dose: 100 mls/hr Documented by: Cefazolin Sodium () 1 gm in 50 mls @ 150 mls/hr IV Q8H [facility] Stop: 07/10/19 00:19 Last Infusion: 07/09/19 17:35 Dose: Infused Documented by: Sodium Chloride () 250 mls @ 15 mls/hr IV .[id number] PRN PRN Reason: Saline Flush Sodium Chloride () 250 mls @ 15 mls/hr IV .[id number] PRN PRN Reason: Additional IVPB Infusion Levothyroxine Sodium (Synthroid) 75 mcg PO DAILY@0600 [facility] Last Admin: 07/09/19 16:43 Dose: 75 mcg Documented by: Metoprolol Succinate (Toprol Xl (Beta Evelio)) 25 mg PO DAILY [facility] Multivitamins/Minerals (Multivitamin With Minerals (Bkc)) 1 tablet PO DAILY@0800 [facility] Potassium Chloride (K-Dur) 10 meq PO BIDCM [facility] Last Admin: 07/09/19 16:44 Dose: 10 meq Documented by: Prochlorperazine Edisylate (Compazine Iv) 5 - 10 mg IV Q6H PRN PRN PRN Reason: Nausea/vomiting Psyllium Hydrophilic Mucilloid (Metamucil) 1 packet PO DAILY [facility] Last Admin: 07/09/19 16:44 Dose: Not Given Documented by: Sodium Chloride () 10 - 40 ml IV UD PRN PRN Reason: SALINE FLUSH Medical Necessity - Tobacco Use Smoking Status: Never smoker Assessment/Plan All Active Problems (Last Reviewed 07/07/19 @ 12:06 by Cecille Brito DO) Closed fracture dislocation of left ankle joint (Acute) Physical debility (Acute) History of aortic valve replacement with bioprosthetic valve (Resolved 05/06/12) 1. Postop day #0 left ankle fixation following traumatic fracture/dislocation- management per orthopedic medicine. PRN pain regimen. PT/OT. Plans to return to rehab. 2. Hypertension-continue metoprolol. Hold Lasix pending repeat BMP. 3. History of aortic valve replacement with bioprosthetic valve 4. History of ectopy, PACs/PVCs 5. ANDRY/pulmonary hypertension-continue home BiPAP regimen. 6. Hypothyroidism-continue Synthroid regimen. DVT prophylaxis-Lovenox subcu This patient was seen by MILLICENT Metzger under the supervision of Dr. Crockett. <Massimo Crockett F - Last Filed: 07/09/19 19:54> - Physical Exam Vitals/I&O's: Vital Signs Temp Pulse Resp BP Pulse Ox 98.4 F 74 18 98/53 L 100 07/09/19 16:48 07/09/19 16:48 07/09/19 16:48 07/09/19 16:48 07/09/19 16:48 Oxygen Flow Rate (L/min) 2 Oxygen Delivery Method Nasal Cannula Weight: 174 lb Body Mass Index (BMI) 31.8 Intake and Output for Last 24 Hours 07/07/19 07/08/19 07/09/19 23:59 23:59 23:59 Intake Total 2240.00 / 2240.00 Output Total 400 / 400 Balance 1840.00 / 1840.00 Current Medications Hydrocodone Bitart/Acetaminophen ([place] 5mg-325mg) 1 - 2 tablet PO Q6H PRN PRN PRN Reason: Pain Score 1-5/10 Enoxaparin Sodium (Lovenox) 40 mg SC DAILY@0600 [facility] Lactated Ringer's () 1,000 mls @ 100 mls/hr IV .Q10H [facility] Last Admin: 07/09/19 17:55 Dose: 100 mls/hr Documented by: Cefazolin Sodium () 1 gm in 50 mls @ 150 mls/hr IV Q8H [facility] Stop: 07/10/19 00:19 Last Infusion: 07/09/19 17:35 Dose: Infused Documented by: Sodium Chloride () 250 mls @ 15 mls/hr IV .[id number] PRN PRN Reason: Saline Flush Sodium Chloride () 250 mls @ 15 mls/hr IV .[id number] PRN PRN Reason: Additional IVPB Infusion Levothyroxine Sodium (Synthroid) 75 mcg PO DAILY@0600 [facility] Last Admin: 07/09/19 16:43 Dose: 75 mcg Documented by: Metoprolol Succinate (Toprol Xl (Beta Evelio)) 25 mg PO DAILY [facility] Multivitamins/Minerals (Multivitamin With Minerals (Bkc)) 1 tablet PO DAILY@0800 [facility] Potassium Chloride (K-Dur) 10 meq PO BIDCM [facility] Last Admin: 07/09/19 16:44 Dose: 10 meq Documented by: Prochlorperazine Edisylate (Compazine Iv) 5 - 10 mg IV Q6H PRN PRN PRN Reason: Nausea/vomiting Psyllium Hydrophilic Mucilloid (Metamucil) 1 packet PO DAILY [facility] Last Admin: 07/09/19 16:44 Dose: Not Given Documented by: Sodium Chloride () 10 - 40 ml IV UD PRN PRN Reason: SALINE FLUSH Code Visit Addendum: Dr. Crockett I personally examined the patient and reviewed the chart. I agree with the above. 84-year-old female status post left ankle open reduction and internal fixation after fracture. She says that she is doing very well and she has no pain whatsoever. She still little bit numb from the nerve block but otherwise doing okay. From a medical standpoint she has been doing very well at home, she does take metoprolol and Lasix for her heart failure, will hold her Lasix until her creatinine tomorrow comes back and if it is normal can then resume her oral Lasix. May need to add a little bit of fluids if necessary. Inpatient E&M: 90289 Subs Hosp L2
[2019-07-10] VITALS (10 sets, daily range): BP systolic 110–138; BP diastolic 43–58; PULSE 62–92; RESP 18; TEMP 36.5–37.5; O2SAT 93–97
[2019-07-10] MEDS: Cefazolin 1 GM/50 ML BAG IV (00:15)
[2019-07-10] MEDS: Lactated Ringers 1,000 ML 100 ML IV (04:05)
[2019-07-10] MEDS: Enoxaparin 40 MG/0.4 ML Syringe SC (05:54)
[2019-07-10] MEDS: Levothyroxine 75 MCG Tablet PO (05:54)
[2019-07-10] MEDS: HYDROcodone Bitartrate/Apap 5/325 Tablet PO (05:54)
[2019-07-10 06:22] LABS: Anion Gap 4 (5-15); BUN 21 mg/dL (7-18); Calcium,Total 8.4 mg/dL (8.5-10.1); Chloride 105 mmol/L (98-107); Creatinine, Serum 0.78 mg/dL (0.55-1.02); EST Glomerular Filtration Rate 75 mL/min (>60); Est Glom Filt Rate - Afr Amer 91 mL/min (>60); Glucose 98 mg/dL (74-106); Potassium 4.2 mmol/L (3.5-5.1); Sodium Level 140 mmol/L (136-145)
[2019-07-10] MEDS: Psyllium 1 PACKET PO (08:25)
[2019-07-10] MEDS: Multivitamins,Ther W-Minerals Tablet 1 TABLET PO (08:25)
[2019-07-10 10:07] LABS: Hematocrit 32.5 % (37-47); Hemoglobin 10.1 g/dL (12.0-15.0)
[2019-07-10 10:18] LABS: Magnesium 2.4 mg/dL (1.6-2.6)
[2019-07-10] MEDS: 0.9% Saline Lock 10 ML Syringe IV (10:31)
--- NOTE | 2019-07-10 11:01 | CASEMGMT ---
Addendum entered by Anjelica Campos 07/10/19 13:09: KRYSTLE spoke with physician, pt is medically cleared for discharge today. KRYSTLE placed a call to Nini with [facility] and updated her that pt will be discharged back to [facility] today. Nini states [facility] is able to accept pt today. RN updated. Plan: [facility] Today Anjelica CEDEÑO, ALECIA Original Note: Social Work Note Pt came from [facility]. KRYSTLE met with pt and introduced self and role at [facility]. SW familiar with pt from previous visit to [facility]. Pt is alert and orientated x4. Pt confirms that she came from [facility] and the plan is for pt to return to . KRYSTLE placed a call to Nini with [facility]. Nini states [facility] is able to accept pt back either today or Sunday. Nini states [facility] will not be able to take pt back tomorrow as physician will be off tomorrow. Plan: [facility] once medically cleared. Likely either today or Sunday. Anjelica CEDEÑO, FOREIGN AGENT
[2019-07-10] MEDS: Metoprolol(XL)Succ 25 MG Tablet PO (11:19)
[2019-07-10] MEDS: oxyCODONE 5 MG Tablet PO (11:23)
--- NOTE | 2019-07-10 12:52 | DS.PCM_ITS ---
Discharge Date and Diagnosis - Problem List Patient Problems: Active and Suspected Problems (Last Reviewed 07/07/19 @ 12:[address] Cecille Brito DO) Aftercare following surgery of the musculoskeletal system, NEC (Acute) Date of Admission: 07/09/19 - s/p orif left ankle Date of Discharge: 07/10/19 - Primary Discharge Diagnosis s/p orif left ankle trimall frx dislocation - Secondary Discharge Diagnosis Chronic Problems (Last Reviewed 07/07/19 @ 12:[address] 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 Paul Grade I diastolic dysfunction (Chronic) Secondary pulmonary arterial hypertension (Chronic) Estimated PA systolic in April 2018 was 42 mmHg. Chronic diastolic (congestive) heart failure (Chronic) Essential (primary) hypertension (Chronic) Non-rheumatic aortic stenosis (Chronic) AVR 05/06/12 Hospital Course and Treatment Imaging Results: intraaop fluoro anatomic alignment of ankle fx hospitalist/clinical social work aide/PT Operations: - - closed reduction of left trimalleolar fracture with dislocation Summary of Care Provided: The patient is a 84 year old FPatient is an 84-year-old female who sustained a crack fracture dislocation of her left ankle reduced in the emergency room admitted for pain control noted that she had widening of the medial mortise was taken back to the operating room for further close reduction and that point as she was too swelling swollen for surgery so she was admitted to the rehab floor swelling went down of her course of the week she was taken to the operating room on 219 for ORIF of her left ankle. Patient had an uneventful surgical course. She was admitted for IV antibiotics and for pain control she did receive a postop regional block. Patient tolerating p.o.'s, medicine manage her chronic comorbid conditions, and patient was placed on Lovenox postop for DVT prophylaxis. Patient an uneventful stay no pain pain controlled with p.o. narcotics and antibiotics complete and patient okay for transfer to rehab floor after PT/OT eval. no acute issues, med ok for transfer as well. [] Patient Problems: Active and Suspected Problems (Last Reviewed 07/07/19 @ 12:[address] Cecille Brito DO) Aftercare following surgery of the musculoskeletal system, NEC (Acute) Subjective: Patient is an 8-2year-old female who sustained atrimal fracture dislocation of her left ankle reduced in the emergency room admitted for pain control noted that she had widening of the medial mortise was taken back to the operating room for further close reduction and that point as she was too swelling swollen for surgery so she was admitted to the rehab floor swelling went down of her course of the week she was taken to the operating room on 219 for ORIF of her left ankle. Patient had an uneventful surgical course. She was admitted for IV antibiotics and for pain control she did receive a postop regional block. Patient tolerating p.o.'s medicine manage her chronic comorbid conditions and patient was placed on Lovenox postop for DVT prophylaxis. Patient an uneventful stay no pain pain controlled with p.o. narcotics and antibiotics complete and patient okay for transfer to rehab floor. Patient is not short of breath no fevers chills constipation diarrhea she has not had a bowel movement she is passing gas she is doing her incentive and surrounded her occasionally. Discussed how to cough and how that improves lung aeration and decrease his atelectasis as well. Uneventful night as patient states pain controlled with a regional block until the block wore off and then she had a little bit of pain getting up to go the bathroom but fine otherwise. No chest pain headaches nausea vomiting or other constitutional symptoms. - Physical Exam Vitals/I&O's: Vital Signs Temp Pulse Resp BP Pulse Ox 98.4 F 92 18 113/56 L 97 07/10/19 08:42 07/10/19 11:19 07/10/19 08:42 07/10/19 08:42 07/10/19 09:44 Oxygen Flow Rate (L/min) 2 Oxygen Delivery Method Nasal Cannula Weight: 174 lb Body Mass Index (BMI) 31.8 Intake and Output for Last 24 Hours 07/08/19 07/09/19 07/10/19 23:59 23:59 23:59 Intake Total 2240.00 / 2640.00 2593.33 / 2593.33 Output Total 400 / 850 1050 / 1050 Balance 1840.00 / 1790.00 1543.33 / 1543.33 General: Alert, Oriented x3, Cooperative HEENT: Atraumatic, PERRLA, EOMI, Normocephalic Neck: Supple, No JVD, Negative Carotid Bruits Lungs: Clear to auscultation, Normal air movement Cardiovascular: Regular rate, No murmurs Abdomen: Bowel Sounds Present, Soft, Non Tender Extremities: No edema, Capillary Refill Less than 3 Seconds Skin: No rashes, No breakdown Musculoskeletal: Tenderness - at fracture site, arom/prom intact of toes without pain, sgi, compts soft Neurological: Cranial nerves II-XII grossly intact Psych/Mental Status: Normal Affect, Appropriate Laboratory Results 07/10/19 05:36: Hgb 10.1 L, Hct 32.5 L 07/10/19 05:36: Magnesium 2.4 07/10/19 05:38: Sodium 140, Potassium 4.2, Chloride 105, Carbon Dioxide 31.0, Anion Gap 4 L, BUN 21 H, Creatinine 0.78, Estim Creat Clear Calc 34.30, Est GFR (MDRD) Af Amer 91, Est GFR (MDRD) Non-Af 75, BUN/Creatinine Ratio 27.0 H, Glucose 98, Calcium 8.4 L Current Medications Acetaminophen (Tylenol) 1,000 mg PO Q8 [facility] Cholecalciferol (Vitamin D) 1,000 unit PO DAILY [facility] Enoxaparin Sodium (Lovenox) 40 mg SC DAILY@0600 [facility] Last Admin: 07/10/19 05:54 Dose: 40 mg Documented by: Levothyroxine Sodium (Synthroid) 75 mcg PO DAILY@0600 [facility] Last Admin: 07/10/19 05:54 Dose: 75 mcg Documented by: Metoprolol Succinate (Toprol Xl (Beta Evelio)) 25 mg PO DAILY [facility] Last Admin: 07/10/19 11:19 Dose: 25 mg Documented by: Multivitamins/Minerals (Multivitamin With Minerals (Bkc)) 1 tablet PO DAILY@0800 [facility] Last Admin: 07/10/19 08:25 Dose: 1 tablet Documented by: Oxycodone HCl (Oxyir) 5 mg PO Q4H PRN PRN PRN Reason: Pain Score 5-10/10 Last Admin: 07/10/19 11:23 Dose: 5 mg Documented by: Potassium Chloride (K-Dur) 10 meq PO BIDCM [facility] Last Admin: 07/10/19 08:25 Dose: 10 meq Documented by: Prochlorperazine Edisylate (Compazine Iv) 5 - 10 mg IV Q6H PRN PRN PRN Reason: Nausea/vomiting Psyllium Hydrophilic Mucilloid (Metamucil) 1 packet PO DAILY [facility] Last Admin: 07/10/19 08:25 Dose: 1 packet Documented by: Sodium Chloride () 10 - 40 ml IV UD PRN PRN Reason: SALINE FLUSH Last Admin: 07/10/19 10:31 Dose: 10 ml Documented by: Discharge Diet: No Restrictions - leave splint in place, elevate toes above nose, ice prn, non weight bearing left leg Discharge Activity: May Not Drive May shower in (days): 1 Ice area for (Minutes): 20 - Every hour while awake. Weight Bearing Status: Weight bearing as tolerated Keep extremity elevated above heart level: Operative Extremity Call your doctor if your incision/area has: Continuous Slow Oozing, Sudden Increased Bleeding, Increased Pain/ Swelling, Increased Redness, Foul Smelling Discharge Call your doctor if you observe: Fever of 101 or Higher, Coldness, Increased Pain, Numbness or Tingling, Change in Color, Calf discomfort Home Medications: Medications to take at Discharge Calcium Carbonate/Vitamin D3 [Calcium 600-Vit D3 800 Tablet] 1 tab PO DAILY 03/09 Cholecalciferol (VIT D3) [Vitamin D3] 1,000 unit PO DAILY 06/30/19 Furosemide [Lasix] 40 mg PO BID 06/30/19 Levothyroxine [Synthroid] 75 mcg PO DAILY 06/30/19 Multivitamin with Minerals [One Daily Plus Minerals] 1 tab PO DAILY 06/30/19 [place]-3 Fatty Acids [Fish Oil] 2 tab PO DAILY 06/30/19 Potassium Chloride [K-Dur] 10 meq PO BID 06/30/19 Psyllium [Metamucil] 1 packet PO DAILY 06/30/19 Metoprolol Succinate 25 mg PO DAILY #0 07/10/19 Primary Care Physician: Jimbo Koch III, MD [Primary Care Provider] - Please Follow Up With: Ana Laura De Luna, - [phone] Medical Necessity - Tobacco Use Smoking Status: Never smoker Meaningful Use Info Meaningful Use Diagnoses (Choose all that apply): None applicable
--- NOTE | 2019-07-10 13:37 | PCM.PN.HOSP ---
Patient Problems: Active and Suspected Problems (Last Reviewed 07/07/19 @ 12:[address] Cecille Brito DO) Aftercare following surgery of the musculoskeletal system, NEC (Acute) Reason for Visit: Patient does not have any chest pain, shortness of breath. Telemetry reviewed. Shows sinus rhythm with occasional PVCs. Left ankle under Delfino wrap bandage. Vitals/I&O's: Vital Signs Temp Pulse Resp BP Pulse Ox 98.4 F 91 18 113/56 L 97 07/10/19 08:42 07/10/19 13:02 07/10/19 08:42 07/10/19 08:42 07/10/19 09:44 Oxygen Flow Rate (L/min) 2 Oxygen Delivery Method Nasal Cannula Weight: 174 lb Body Mass Index (BMI) 31.8 Intake and Output for Last 24 Hours 07/08/19 07/09/19 07/10/19 23:59 23:59 23:59 Intake Total 2240.00 / 2640.00 2593.33 / 2593.33 Output Total 400 / 850 1050 / 1050 Balance 1840.00 / 1790.00 1543.33 / 1543.33 General: Alert, Oriented x3, Cooperative HEENT: Atraumatic, PERRLA, EOMI, Normocephalic Neck: Supple, No JVD, Negative Carotid Bruits Lungs: Clear to auscultation, Normal air movement, No rhonchi, No wheeze, No rales, - Cardiovascular: Regular rate, Regular Rhythm, Normal S1, Normal S2, No murmurs, - - Aortic click sound present over aortic valve, right second intercostal space. Abdomen: Bowel Sounds Present, Soft, Non Tender, Non-Distended Extremities: No edema, Capillary Refill Less than 3 Seconds Skin: No rashes, No breakdown Musculoskeletal: Arthritic Changes, Tenderness - Over left ankle operative region. Neurological: Cranial nerves II-XII grossly intact Psych/Mental Status: Normal Affect, Appropriate Laboratory Results 07/10/19 05:36: Hgb 10.1 L, Hct 32.5 L 07/10/19 05:36: Magnesium 2.4 07/10/19 05:38: Sodium 140, Potassium 4.2, Chloride 105, Carbon Dioxide 31.0, Anion Gap 4 L, BUN 21 H, Creatinine 0.78, Estim Creat Clear Calc 34.30, Est GFR (MDRD) Af Amer 91, Est GFR (MDRD) Non-Af 75, BUN/Creatinine Ratio 27.0 H, Glucose 98, Calcium 8.4 L Current Medications Acetaminophen (Tylenol) 1,000 mg PO Q8 [facility] Cholecalciferol (Vitamin D) 1,000 unit PO DAILY [facility] Enoxaparin Sodium (Lovenox) 40 mg SC DAILY@0600 [facility] Last Admin: 07/10/19 05:54 Dose: 40 mg Documented by: Levothyroxine Sodium (Synthroid) 75 mcg PO DAILY@0600 [facility] Last Admin: 07/10/19 05:54 Dose: 75 mcg Documented by: Metoprolol Succinate (Toprol Xl (Beta Evelio)) 25 mg PO DAILY [facility] Last Admin: 07/10/19 11:19 Dose: 25 mg Documented by: Multivitamins/Minerals (Multivitamin With Minerals (Bkc)) 1 tablet PO DAILY@0800 [facility] Last Admin: 07/10/19 08:25 Dose: 1 tablet Documented by: Oxycodone HCl (Oxyir) 5 mg PO Q4H PRN PRN PRN Reason: Pain Score 5-10/10 Last Admin: 07/10/19 11:23 Dose: 5 mg Documented by: Potassium Chloride (K-Dur) 10 meq PO BIDCM [facility] Last Admin: 07/10/19 08:25 Dose: 10 meq Documented by: Prochlorperazine Edisylate (Compazine Iv) 5 - 10 mg IV Q6H PRN PRN PRN Reason: Nausea/vomiting Psyllium Hydrophilic Mucilloid (Metamucil) 1 packet PO DAILY [facility] Last Admin: 07/10/19 08:25 Dose: 1 packet Documented by: Sodium Chloride () 10 - 40 ml IV UD PRN PRN Reason: SALINE FLUSH Last Admin: 07/10/19 10:31 Dose: 10 ml Documented by: STROKE Vital Signs/Narrative: Vital Signs Pulse Pulse Ox 07/10/19 13:02 91 07/10/19 11:19 92 07/10/19 09:44 97 Medical Necessity - Tobacco Use Smoking Status: Never smoker Assessment/Plan All Active Problems (Last Reviewed 07/07/19 @ 12:[address] 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 Postop day #1 left ankle fixation following traumatic fracture/dislocation-management per orthopedic medicine. On pain medication. Pain is controlled. On Lovenox 40 mils subcu daily. Continue for 2 weeks for DVT prophylaxis or 1 of NOACs. 2. Hypertension-continue metoprolol. BMP is normal. Resume home medication. Patient on Lasix 40 mg twice daily. 3. History of aortic valve replacement with bioprosthetic valve. Patient had echo in April 2018 reported as Suggestive of chronic heart failure with preserved EF/diastolic heart failure. Interpretation Summary Normal LV size. Left ventricular systolic function is normal. The estimated ejection fraction is 65 %. Stage 1 diastolic dysfunction. Mild (1+) tricuspid valve insufficiency. Bioprosthetic aortic valve. Mean aortic valve gradient 21 mmHg. 4. History of ectopy, PACs/PVCs 5. ANDRY/pulmonary hypertension-continue home BiPAP regimen. 6. Hypothyroidism-continue Synthroid regimen. DVT prophylaxis-Lovenox subcu The patient is medically stable to be discharged to rehab. Code Visit Inpatient E&M: 73521 Subs Hosp L2
[2019-07-10] MEDS: Acetaminophen 500 MG Tablet 1000 MG PO (14:00)
--- NOTE | 2019-07-10 14:16 | NURSING ---
REPORT CALLED TO [facility]FF[facility] PORTILLO IN INPATIENT REHAB UNIT. WILL BE TRANSFERRED TO ROOM 405 BY LILLIAN HAMEED.
== END 2019-07-10 14:48 | DRG 493 ==
LOC: MS3 07-10 08:03 → SDC 07-10 08:26 → MS3 07-10 08:26
PROVIDERS: Family Medicine; Internal Medicine; Admitting Provider Orthopaedic Surgery; PCP Family Medicine; Referring Provider Orthopaedic Surgery; Visit Provider Orthopaedic Surgery
PROC: 0QSK04Z Reposition Left Fibula with Internal Fixation Device, Open Approach (ICD-10-PCS; principal; 2019-07-09 07:10)
DX: S82.852A Displaced trimalleolar fracture of left lower leg, initial encounter for closed fracture (principal); I50.32 Chronic diastolic (congestive) heart failure; X58.XXXA Exposure to other specified factors, initial encounter; E03.9 Hypothyroidism, unspecified; G47.33 Obstructive sleep apnea (adult) (pediatric); I27.21 Secondary pulmonary arterial hypertension; I11.0 Hypertensive heart disease with heart failure; Z95.3 Presence of xenogenic heart valve; Z86.12 Personal history of poliomyelitis
CPT/HCPCS: 36415; 73600; 76000; 80048; 83735; 85014; 85018; 97110; 97116; 97162; 97166; 97530; 97535; C1713; J7120; A4216; J2405

== ENCOUNTER 2019-07-10 15:06 | Inpatient (IN) | payer MEDICARE, OTHER, SELFPAY ==
[2019-07-09 06:51] VITALS: BMI 31.8
[2019-07-10 15:13] VITALS: BP 125/57; PULSE 88; RESP 18; TEMP 36.6; O2SAT 91; BMI 33.3
--- NOTE | 2019-07-10 16:04 | HP.PCM_ITS ---
History of Present Illness The patient is a 84 year old F [] Past Medical History Past Medical History (Chronic Problems): Chronic Problems (Last Reviewed 07/07/19 @ 12:[address] 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 Paul Grade I diastolic dysfunction (Chronic) Secondary pulmonary arterial hypertension (Chronic) Estimated PA systolic in April 2018 was 42 mmHg. Chronic diastolic (congestive) heart failure (Chronic) Essential (primary) hypertension (Chronic) Non-rheumatic aortic stenosis (Chronic) AVR 05/06/12 Medical History: Medical History (Last Reviewed 07/07/19 @ 12:[address] Cecille Brito DO) Secondary pulmonary arterial hypertension (Chronic) I27.21 Estimated PA systolic in April 2018 was 42 mmHg. Chronic diastolic (congestive) heart failure (Chronic) I50.32 Essential (primary) hypertension (Chronic) I10 Non-rheumatic aortic stenosis (Chronic) I35.0 AVR 05/06/12 Hypothyroidism E03.9 Obesity E66.9 Obstructive sleep apnea G47.33 Vertigo R42 Allergies aspirin Allergy (Verified 07/09/19 07:06) made my blood too thin hydrocodone [From Vicodin] Allergy (Verified 07/09/19 12:10) feels like getting high niacin Adverse Reaction (Verified 07/09/19 07:06) severe sweating simvastatin Adverse Reaction (Verified 07/09/19 07:06) muscle aches Home Medications: Ambulatory Orders Medication Instructions Recorded Calcium Carbonate/Vitamin D3 1 tab PO DAILY 06/30/19 [Calcium 600-Vit D3 800 Tablet] Cholecalciferol (VIT D3) [Vitamin 1,000 unit PO DAILY 06/30/19 D3] Furosemide [Lasix] 40 mg PO BID 06/30/19 Levothyroxine [Synthroid] 75 mcg PO DAILY 06/30/19 Multivitamin with Minerals [One 1 tab PO DAILY 06/30/19 Daily Plus Minerals] Helen-3 Fatty Acids [Fish Oil] 2 tab PO DAILY 06/30/19 Potassium Chloride [K-Dur] 10 meq PO BID 06/30/19 Psyllium [Metamucil] 1 packet PO DAILY 06/30/19 Acetaminophen [Tylenol Extra 1,000 mg PO Q8 07/10/19 Strength] Enoxaparin Sodium [Lovenox] 40 mg SQ DAILY 07/10/19 Metoprolol Succinate 25 mg PO DAILY #0 07/10/19 Oxycodone [Oxyir] 5 mg PO Q4H PRN PRN 07/10/19 Surgical History: Surgical History (Last Reviewed 07/07/19 @ 12:[address] Cecille Brito DO) History of aortic valve replacement with bioprosthetic valve (Resolved) Onset Date: 05/06/12 Z95.4 AVR with #[facility] 05/06/12 History of parathyroidectomy Z98.890 History of right and left heart catheterization Onset Date: 09/01/11 Z98.890 History of tonsillectomy and adenoidectomy Z98.890 Hx of cholecystectomy Z90.49 H/O breast biopsy (Inactive) Z98.890 H/O colonoscopy (Inactive) Z98.890 Surgical History: - - AVR Psychiatric History: Anxiety, Depression [employer] History: No pertinent [employer] history Smoking Status: Never smoker Patient Problems: Active and Suspected Problems (Last Reviewed 07/07/19 @ 12:[address] Cecille Brito DO) Aftercare following surgery of the musculoskeletal system, NEC (Acute) - Physical Exam Vitals/I&O's: Vital Signs Temp Pulse Resp BP Pulse Ox 97.9 F 88 18 125/57 H 91 07/10/19 15:13 07/10/19 15:13 07/10/19 15:13 07/10/19 15:13 07/10/19 15:13 Oxygen Delivery Method Room Air Weight: 182 lb 8.684 oz Body Mass Index (BMI) 33.3 Current Medications Bisacodyl (Dulcolax) 10 mg RECTAL .PRN X 1 PRN PRN Reason: Constipation Magnesium Hydroxide (Milk Of Magnesia) 30 ml PO .PRN X 1 PRN PRN Reason: Constipation Senna/Docusate Sodium (Senokot-S, Treva-Colace) 2 tablet PO BID RAHUL Assessment/Plan All Active Problems (Last Reviewed 07/07/19 @ 12:[address] Cecille Brito DO) Acute medial meniscus tear of left knee (Acute) Aftercare following surgery of the musculoskeletal system, NEC (Acute) Closed fracture dislocation of left ankle joint (Acute) Physical debility (Acute) History of aortic valve replacement with bioprosthetic valve (Resolved 05/06/12)
[2019-07-10] MEDS: oxyCODONE 5 MG Tablet PO (16:52)
[2019-07-10] MEDS: Furosemide 40 MG Tablet PO (17:49)
[2019-07-10 18:01] VITALS: BMI 33.4
[2019-07-10 19:10] VITALS: BP 116/52; PULSE 88; RESP 16; TEMP 37.1; O2SAT 95
[2019-07-10 20:10] VITALS: O2SAT 91
[2019-07-10] MEDS: Acetaminophen 500 MG Tablet 1000 MG PO (21:47)
[2019-07-10] MEDS: Nystatin Powder 15gm Bottle 1 APPLIC TOPICAL (21:47)
[2019-07-10] MEDS: Menthol/Lanolin/Calamine/Znox 113 GM Tube 1 APPLIC TOPICAL (21:48)
[2019-07-11] MEDS: Furosemide 40 MG Tablet PO ×2 (05:19→16:35)
[2019-07-11] MEDS: Levothyroxine 75 MCG Tablet PO (05:19)
[2019-07-11] MEDS: Enoxaparin 40 MG/0.4 ML Syringe SC (05:19)
[2019-07-11] MEDS: Acetaminophen 500 MG Tablet 1000 MG PO ×3 (05:20→20:09)
[2019-07-11 07:27] VITALS: PULSE 64
[2019-07-11] MEDS: Metoprolol(XL)Succ 25 MG Tablet PO (07:27)
[2019-07-11] MEDS: Calcium Carb/Vitamin D 1 TABLET Tablet PO (07:27)
[2019-07-11] MEDS: Multivitamins,Ther W-Minerals Tablet 1 TABLET PO (07:28)
[2019-07-11] MEDS: Senna/Docusate Sodium 1 Tablet 2 TABLET PO (07:30)
[2019-07-11] MEDS: Nystatin Powder 15gm Bottle 1 APPLIC TOPICAL ×2 (07:31→20:10)
[2019-07-11] MEDS: Menthol/Lanolin/Calamine/Znox 113 GM Tube 1 APPLIC TOPICAL ×2 (07:31→20:11)
[2019-07-11] MEDS: Psyllium 1 PACKET PO (07:31)
[2019-07-11 08:05] VITALS: BP 104/53; PULSE 64; RESP 16; TEMP 36.4; O2SAT 98
--- NOTE | 2019-07-11 09:57 | PCM.HP.STD ---
Problem List (1) Status post ORIF of fracture of ankle Status: Acute Comment: Dr. De Luna on 07/09/19 Left ankle (2) Ventricular ectopy Status: Chronic (3) Acute medial meniscus tear of left knee Status: Resolved (4) Aftercare following surgery of the musculoskeletal system, NEC Status: Acute (5) Polio Status: Chronic Comment: when she was a child < 12 (6) Closed fracture dislocation of left ankle joint Status: Acute Qualifiers: Encounter type: subsequent encounter (7) ANDRY (obstructive sleep apnea) Status: Chronic Comment: She is on BIPAP with oxygen bleed in at night....follows with Dr. Paul (8) Grade I diastolic dysfunction Status: Chronic (9) Physical debility Status: Acute Comment: due to closed L ankle fracture due to fall (10) Secondary pulmonary arterial hypertension Status: Chronic Comment: Estimated PA systolic in April 2018 was 42 mmHg. 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 Ana Laura De Luna. The patient is a 84 year old F with a past medical history of polio as a child, secondary pulmonary hypertension, chronic diastolic congestive heart failure, hypertension, nonrheumatic aortic stenosis with history of bioprosthetic aortic valve replacement on 05/06/2012, hypothyroidism, obstructive sleep apnea, benign paroxysmal positional vertigo, obesity and a recent traumatic fracture of the left ankle due to a fall who was originally admitted to the rehab unit on 07/03/2019 for debility due to ankle fracture. She was discharged on 07/09/19 and went to surgery with Dr. De Luna for ORIF of the left ankle fracture. Following the surgery she was admitted to [facility] and placed on telemetry for 24 hours as recommended by cardiology. Overnight she had frequent PVC's with couplets and two 4 beat runs of non-sustained VT. She was asymptomatic. Vital signs were stable and the Potassium was normal at 4.2 with a mag of 2.4. She was then discharged from the acute hospital stay and readmitted to the rehab unit for continued therapy so that she can return home at or near her prior level of independence. She lives by herself and she has stairs to her basement and also 3 steps to get into the house. She will have at least 3 hours of therapy daily while in rehab and will be non-wt bearing on the LLE. She was independent with mobility, ADLs and driving prior to her fall. 04/25/18 Interpretation Summary Normal LV size. Left ventricular systolic function is normal. The estimated ejection fraction is 65 %. Stage 1 diastolic dysfunction. Mild (1+) tricuspid valve insufficiency. Bioprosthetic aortic valve. Mean aortic valve gradient 21 mmHg. Calculated aortic valve area is 1.0 consistent with mild to moderate aortic stenosis. Contrast injection was performed. Past Medical History Past Medical History (Chronic Problems): Chronic Problems (Last Reviewed 07/11/19 @ 10:[address] 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 Paul Grade I diastolic dysfunction (Chronic) Secondary pulmonary arterial hypertension (Chronic) Estimated PA systolic in April 2018 was 42 mmHg. Chronic diastolic (congestive) heart failure (Chronic) Essential (primary) hypertension (Chronic) Non-rheumatic aortic stenosis (Chronic) AVR 05/06/12 Medical History: Medical History (Last Reviewed 07/11/19 @ 10:[address] Cecille Brito DO) Secondary pulmonary arterial hypertension (Chronic) I27.21 Estimated PA systolic in April 2018 was 42 mmHg. Chronic diastolic (congestive) heart failure (Chronic) I50.32 Essential (primary) hypertension (Chronic) I10 Non-rheumatic aortic stenosis (Chronic) I35.0 AVR 05/06/12 Hypothyroidism E03.9 Obesity E66.9 Obstructive sleep apnea G47.33 Vertigo R42 Allergies aspirin Allergy (Verified 07/09/19 07:06) made my blood too thin hydrocodone [From Vicodin] Allergy (Verified 07/09/19 12:10) feels like getting high niacin Adverse Reaction (Verified 07/09/19 07:06) severe sweating simvastatin Adverse Reaction (Verified 07/09/19 07:06) muscle aches Home Medications: Ambulatory Orders Medication Instructions Recorded Calcium Carbonate/Vitamin D3 1 tab PO DAILY 06/30/19 [Calcium 600-Vit D3 800 Tablet] Cholecalciferol (VIT D3) [Vitamin 1,000 unit PO DAILY 06/30/19 D3] Furosemide [Lasix] 40 mg PO BID 06/30/19 Levothyroxine [Synthroid] 75 mcg PO DAILY 06/30/19 Multivitamin with Minerals [One 1 tab PO DAILY 06/30/19 Daily Plus Minerals] [place]-3 Fatty Acids [Fish Oil] 2 tab PO DAILY 06/30/19 Potassium Chloride [K-Dur] 10 meq PO BID 06/30/19 Psyllium [Metamucil] 1 packet PO DAILY 06/30/19 Acetaminophen [Tylenol Extra 1,000 mg PO Q8 07/10/19 Strength] Enoxaparin Sodium [Lovenox] 40 mg SQ DAILY 07/10/19 Metoprolol Succinate 25 mg PO DAILY #0 07/10/19 Oxycodone [Oxyir] 5 mg PO Q4H PRN PRN 07/10/19 Surgical History: Surgical History (Last Reviewed 07/11/19 @ 10:[address] Cecille Brito, DO) History of aortic valve replacement with bioprosthetic valve (Resolved) Onset Date: 05/06/12 Z95.4 AVR with #[facility] 05/06/12 History of parathyroidectomy Z98.890 History of right and left heart catheterization Onset Date: 09/01/11 Z98.890 History of tonsillectomy and adenoidectomy Z98.890 Hx of cholecystectomy Z90.49 H/O breast biopsy (Inactive) Z98.890 H/O colonoscopy (Inactive) Z98.890 Surgical History: cholecystectomy, tonsillectomy, - - AVR on 05/06/12, ORIF of left ankle fracture 07/09/19, parathyroidectomy, breast biopsy, colonoscopy, right and left heart catheterization on 09/01/2011 Psychiatric History: Anxiety, Depression 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 Cecille Brito DO) Father Dementia Mother Liver cirrhosis Sister Aortic valve disease Brother Dementia Review of Systems Constitutional: Denies: Anorexia, Chills, Fever, Malaise, Weight Change Eyes: Denies: Blurred vision, Vision Change HEENT: Denies: Difficulty Swallowing, Head Aches, Sinus Congestion, Sinus Drainage, Sore Throat Cardiovascular: Denies: Chest Pain, Chest Pressure, Chest Tightness, Light Headedness, Orthopnea, Palpitations, Paroxysmal Noc. Dyspnea Respiratory: Reports: Shortness of breath upon exertion. Denies: Cough, Shortness of breath at rest, Sputum production Gastrointestinal: Denies: Abdominal Pain, Constipation, Diarrhea, Nausea, Vomiting Genitourinary: Denies: Dysuria Musculoskeletal: Reports: Joint Pain - left ankle due to ORIF of fracture on 07/09/19. Denies: Joint Tenderness Skin: Reports: Wounds - surgical incision of the left ankle. Denies: Jaundice, Rash Neurological: Reports: Balance problems - due to being non-weight bearing on the LLE. Denies: Slurred speech, Confusion, Focal weakness, Headaches, Numbness, Tingling, Tremor, Seizures Psychiatric: Denies: Anxiety, Depression, Homicidal Ideations, Suicidal Ideations Endocrine: Reports: - - History of hyperparathyroidism-status post parathyroidectomy. Denies: Change in Body Habitus Hematologic/ Lymphatic: Reports: Anemia - This is acute due to blood loss from recent surgery and is mild. Denies: Easy Bruising, Easy Bleeding, Hx of blood clot VTE Information - Inpt Only VTE Present on Admission: No VTE Mechan Device Prophylaxis: Knee High TALON Hose VTE Pharm Prophylaxis ordered?: Yes Patient Problems: Active and Suspected Problems (Last Reviewed 07/11/19 @ 10:[address] Cecille Brito DO) Status post ORIF of fracture of ankle (Acute) Dr. De Luna on 07/09/19 Left ankle Normochromic normocytic anemia (Acute) Likely due to blood loss from ORIF of left ankle fracture Aftercare following surgery of the musculoskeletal system, NEC (Acute) - Physical Exam Vitals/I&O's: Vital Signs Temp Pulse Resp BP Pulse Ox 97.6 F L 64 16 104/53 L 98 07/11/19 08:05 07/11/19 08:05 07/11/19 08:05 07/11/19 08:05 07/11/19 08:05 Oxygen Flow Rate (L/min) 1 Oxygen Delivery Method Room Air Weight: 182 lb 8.684 oz Body Mass Index (BMI) 33.3 Intake and Output for Last 24 Hours 07/09/19 07/10/19 07/11/19 23:59 23:59 23:59 Intake Total 240 / 240 360 / 360 Balance 240 / 240 360 / 360 General: Alert, Oriented x3, Cooperative, No apparent distress, Well developed, Well nourished HEENT: Atraumatic, PERRLA, EOMI, Normocephalic Oral: No Gingival or Mucosal Lesions/ Ulcerations, Dry Mucosa Neck: Supple, No JVD, Negative Carotid Bruits, No Nodes, Trachea Midline Lungs: Clear to auscultation, No rhonchi, No wheeze, No rales, Diminished - jeannette in the bases, L>R, more likely than not due to paralyzed Left hemidiaphragm. Cardiovascular: Regular rate, Regular Rhythm, Murmur - She has a systolic ejection murmur heard best at the second right intercostal space with radiation to the left ventricular outflow tract, lower left sternal border and the apex. The murmur is louder than it was while in rehab and I suspect this is due to dehydration and mild anemia., No rub noted, No Gallop, - - occasional early beat Abdomen: Bowel Sounds Present, Soft, Non Tender, Non-Distended, Obese Extremities: No clubbing, No cyanosis, Capillary Refill Less than 3 Seconds, No Calf Tenderness, Edema - Of the toes of the left foot, - - She has intact sensation to the toes of the left foot and they are warm and not cyanotic. Skin: No rashes, No breakdown, - - Incision on the left ankle-not visualized secondary to presence of a large dressing/cast Musculoskeletal: No Tenderness to Palpation of Joints or Extremities, Arthritic Changes Lymphatic: No Cervical, Supraclavicular, or Inguinal Adenopathy Neurological: Cranial nerves II-XII grossly intact, Neuro grossly intact Psych/Mental Status: Normal Affect, Appropriate Current Medications Acetaminophen (Tylenol) 1,000 mg PO Q8 [facility] Last Admin: 07/11/19 05:20 Dose: 1,000 mg Documented by: Bisacodyl (Dulcolax) 10 mg RECTAL .PRN X 1 PRN PRN Reason: Constipation Calamine/Phenol (Calmoseptine Ointment) 1 applic TOPICAL BID [facility]; Protocol Last Admin: 07/11/19 07:31 Dose: 1 applicatio Documented by: Calcium/Vitamin D (Os-Mikael 500mg + D) 1 tablet PO DAILYCM [facility] Last Admin: 07/11/19 07:27 Dose: 1 tablet Documented by: Cholecalciferol (Vitamin D) 1,000 unit PO DAILY [facility] Last Admin: 07/11/19 07:28 Dose: 1,000 unit Documented by: Enoxaparin Sodium (Lovenox) 40 mg SC DAILY@0600 [facility] Last Admin: 07/11/19 05:19 Dose: 40 mg Documented by: Furosemide (Lasix) 40 mg PO BID@0600,1800 [facility] Last Admin: 07/11/19 05:19 Dose: 40 mg Documented by: Levothyroxine Sodium (Synthroid) 75 mcg PO DAILY@0600 [facility] Last Admin: 07/11/19 05:19 Dose: 75 mcg Documented by: Magnesium Hydroxide (Milk Of Magnesia) 30 ml PO .PRN X 1 PRN PRN Reason: Constipation Metoprolol Succinate (Toprol Xl (Beta Evelio)) 25 mg PO DAILY [facility] Last Admin: 07/11/19 07:27 Dose: 25 mg Documented by: Multivitamins/Minerals (Multivitamin With Minerals (Bkc)) 1 tablet PO DAILY@0800 [facility] Last Admin: 07/11/19 07:28 Dose: 1 tablet Documented by: Nystatin (Mycostatin Powder) 1 applic TOPICAL BID [facility]; Protocol Last Admin: 07/11/19 07:31 Dose: 1 applicatio Documented by: Oxycodone HCl (Oxyir) 5 mg PO Q4H PRN PRN PRN Reason: PAIN SCORE 1-10/10 Last Admin: 07/10/19 16:52 Dose: 5 mg Documented by: Potassium Chloride (K-Dur) 10 meq PO BID [facility] Last Admin: 07/11/19 07:28 Dose: 10 meq Documented by: Psyllium Hydrophilic Mucilloid (Metamucil) 1 packet PO DAILY [facility] Last Admin: 07/11/19 07:31 Dose: 1 packet Documented by: Senna/Docusate Sodium (Senokot-S, Treva-Colace) 2 tablet PO BID [facility] Last Admin: 07/11/19 07:30 Dose: 2 tablet Documented by: Assessment/Plan All Active Problems (Last Reviewed 07/11/19 @ 10:[address] Cecille Brito, DO) Status post ORIF of fracture of ankle (Acute) Normochromic normocytic anemia (Acute) Aftercare following surgery of the musculoskeletal system, NEC (Acute) Closed fracture dislocation of left ankle joint (Acute) Physical debility (Acute) History of aortic valve replacement with bioprosthetic valve (Resolved 05/06/12) Acute medial meniscus tear of left knee (Resolved) Impressions 1. Physical debility secondary to recent distal left ankle fracture and subsequent ORIF on 07/09/[address] De Luna. Patient is nonweightbearing on the left lower extremity and has balance issues. She lives by herself and has stairs to go down to her basement and a few steps to go into the house. She is admitted for greater than 3 hours of therapy daily for at least 5 days a week to return her at or near her prior level of independence. She was independent with mobility, ADLs and driving prior to the fracture. She tells me that she has had a DEXA in the past and she does not have osteoporosis. 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 2. Ventricular ectopy. Asymptomatic in a pt with a normal EF and normal K and MAG.......no tx necessary. She will follow up with Dr. Monsalve going forward as previously arranged. 3. Mild to moderate aortic stenosis-stable 4. Chronic diastolic congestive heart failure-continue home meds including Lasix 40 mg p.o. twice daily 5. Chronic conditions including: Nonrheumatic aortic valve stenosis with bioprosthetic aortic valve replacement in April 2013/hypertension/secondary pulmonary hypertension/history of polio as a child/ANDRY/hypothyroidism/BPPV/obesity/grade 1 diastolic dysfunction/large hiatal hernia/paralyzed left diaphragm - complicate care, management and prognosis. Continue home medications. PLAN PT for gait stability OT for ADL's ST for evaluation Analgesics as needed Bowel protocol Fall precautions Assess for Anxiety/Depression GI prophylaxis not necessary DVT prophylaxis with enoxaparin 40 mg subcu daily Follow up with Dr. De Luna, Dr. Monsalve and Dr. Jimbo Koch following DC from [facility] Rehab Suspect she will go with [facility] at [place] if she continues to do well Code Visit Inpatient E&M: [id number] Init Hosp L2
--- NOTE | 2019-07-11 10:32 | PCM.RU.PYE ---
Admission Information Primary Diagnosis:: Physical debility secondary to traumatic left ankle fracture and subsequent ORIF on 07/09/2019 Status Changes from Prescreening?: No changes Identified Actual Problem List:: Falls, Skin Intergrity, Depression, Mobility Impaired, Self Care Deficit, Diabetes, Hyperglycemia - With a hemoglobin A1c of 5.3, BP, Hypertension, Alteration/ Air Exchange, Alteration-Leisure Activ. Potential Problem List:: DVT, Bleeding, Infection, UTI, Falls, Skin Integrity, Depression Risk of Complications DVT: LMWH, TALON Hose Bleeding: Monitor Lab Values, Nursing to Teach Precautions for anti-coagulation therapy., Wound, if applicable, to be assessed every shift., Stroke patients assessed for lethargy or change in status. Infection: Clinical Staff to Monitor for S/S of infection:, S/S of infection include fever, redness, warmth, etc. Urinary Tract Infection: Monitor for frequency, burning, discomfort, or incontinence., Nursing will obtain urine sample for urinalysis and C&S when ordered. Aspiration: Clinical staff will monitor for coughing, drooling, congestion., Speech will evaluate swallowing and dsyphasia., Nursing will monitor patient swallowing during meals. Falls: Patient will be evaluated for Fall Precautions, Patient will be placed on Fall Precautions as indicated per protocol. Skin Breakdown: Nursing will assess skin daily using assessment tool., Nursing will place on Skin Breakdown Precautions as indicated. Pain: Clinical staff will assess patient's pain level per protocol., Medications will be given, if needed, and the pain level reassessed., Other methods: Massage, distraction, decrease stimulus, etc. used PRN. Plan of Care Patient requires physician specializing in physical medicine and rehab oversight to provide close medical supervision of rehab issues including: Pain Management, Sleep Problems, Bowel and Bladder, Medical and co-morbidity Management, DVT prophylaxis, Rehabilitation Leadership, Coordination of treatment team Patient needs Physical Therapy: At least 5 out of 7 days, For a minimum of 1.5 hrs Patient needs Physical Therapy to improve:: Mobility, Mobility, Mobility, Strengthening, Transfers, Stretching, ROM, Endurance, Stairs, Gait, Balance Patient needs Occupational Therapy: At least 5 out of 7 days, For a minimum of 1.5 hrs Patient needs Occupational Therapy to improve ADL's incl.: Eating, Grooming, Bathing, Dressing, Toileting, Toilet transfers, Community Reintegration, Higher functioning activities, Household tasks, Adaptive Equipment, Splinting, Other activities as determined Patient requires 24/7 Rehabilitation Nursing for: Pain Issues, Identifying and preventing risk factors, Monitoring and reporting current medical conditions, Assisting with ambulation, transfer, and all ADL's, Teaching patients about disease process and medications, Family teaching, Providing safe environment, Bowel and Bladder Issues, Skin integrity, Medication Management Patient needs Medium Cycle Salesperson/ Case Management for: Discharge Planning, Arranging Home Equipment or Services, Family Interventions Patient needs Dietary and Nutrition Services for: Adequate Nutrition, Nutritional Supplements, Nutritional Education Goals Patient will remain: free from falls, or injury at time of discharge. Patient will perform bed mobility at: MOD I level of assist. Patient will complete transfers from bed to chair at: MOD I level of assist. Patient will ambulate: 100 feet, with MOD I assist, with LRD Patient will complete upper body dressing at: MOD I level of assist. Patient will complete lower body dressing at: MOD I level of assist. Patient will complete toileting at: MOD I level of assist. Patient will perform bathing at: MOD I level of assist. Patient will complete grooming at: MOD I level of assist. Patient will complete home management skills at: MOD I level of assist. Patient will achieve: 12 stairs, at MOD I assist Patient will have pain level of: of 3 or less Patient's skin will: remain intact, free from infection. Patient will receive: adequate nutrition. Discharge Planning Pt Prognosis for Sig. Practical Improv. w/in Reasonable Time: Good Estimated Length of stay (days): 10 Anticipated D/C Destination: Home with Home Health - if she is not deemed safe to be by herself she will likely discharge to SNF Was Preadmission Assessment Accurate?: Yes
--- NOTE | 2019-07-11 10:38 | DS.PCM_ITS ---
Discharge Date and Diagnosis - Problem List Patient Problems: Active and Suspected Problems (Last Reviewed 07/11/19 @ 10:[address] Cecille Brito DO) Status post ORIF of fracture of ankle (Acute) Dr. De Luna on 07/09/19 Left ankle Normochromic normocytic anemia (Acute) Likely due to blood loss from ORIF of left ankle fracture Aftercare following surgery of the musculoskeletal system, NEC (Acute) Date of Admission: 07/04/19 Date of Discharge: 07/09/19 - Primary Discharge Diagnosis Active and Suspected Problems (Last Reviewed 07/11/19 @ 10:[address] Cecille Brito DO) Disability due to left ankle fracture with nonweightbearing status on the left leg Traumatic left ankle fracture due to a fall Hyperglycemia with no history of diabetes mellitus-likely secondary to stress/pain because the hemoglobin A1c is 5.3% - Secondary Discharge Diagnosis Chronic Problems (Last Reviewed 07/11/19 @ 10:[address] 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 Paul Grade I diastolic dysfunction (Chronic) Secondary pulmonary arterial hypertension (Chronic) Estimated PA systolic in April 2018 was 42 mmHg. Chronic diastolic (congestive) heart failure (Chronic) Essential (primary) hypertension (Chronic) Non-rheumatic aortic stenosis (Chronic) AVR 05/06/12 Hospital Course and Treatment Dr. Trudy De Luna - orthopedics Operations: None, - - closed reduction of left trimalleolar fracture with dislocation Procedures: None Summary of Care Provided: The patient is a 84 year old F with a past medical history of polio as a child, secondary pulmonary hypertension, chronic diastolic congestive heart failure, hypertension, nonrheumatic aortic stenosis with history of bioprosthetic aortic valve replacement on 05/06/2012, hypothyroidism, obstructive sleep apnea, benign paroxysmal positional vertigo and obesity who was admitted to the rehab unit on 07/03/2019 for debility secondary to a closed left ankle fracture sustained in a fall on 06/30/2019. She has been seen by Dr. De Luna and was to have surgery last week for ORIF but, the swelling was too great and the surgery was deferred until the swelling improves. She lives by herself and she has stairs to her basement and also 3 steps to get into the house. She will have at least 3 hours of therapy daily while in rehab and will be non-wt bearing on the LLE. She was independent with mobility, ADLs and driving prior to her fall. She was seen by Vega MAYA on 07/08/19 and the swelling had significantly decreased she was scheduled for ORIF at 07:30 on 07/09/19. She was discharged that morning and will be admitted to an acute care bed for 24 hours of telemetry prior to returning to rehab when stable. Her BIPAP machine will be taken to PACU so that she may use it while in recovery. Alert, oriented x3, no apparent distress, pain is adequately managed, pleasant Mucous membranes are dry Lungs-clear to auscultation with diminished breath sounds in the bases, left greater than right Heart-regular rate and rhythm with occasional ectopic beat. Systolic ejection murmur heard best at the second right intercostal space with radiation to the left ventricular outflow tract, lower left sternal border and apex. No diastolic murmurs. No gallop, no rub. Abdomen-soft, nontender, nondistended, bowel sounds heard in all 4 quadrants, no guarding with palpation, no hepatosplenomegaly appreciated She has edema in the toes of the left foot only Denies calf pain, negative Homans on the right. Cannot test the left secondary to cast placement No focal neurologic deficits This note was generated with [employer] dictation software. It may contain incorrect words, spelling, and punctuation that were not noted in checking the note before signing. Patient Problems: Active and Suspected Problems (Last Reviewed 07/11/19 @ 10:[address] Cecille Brito, DO) Status post ORIF of fracture of ankle (Acute) Dr. De Luna on 07/09/19 Left ankle Normochromic normocytic anemia (Acute) Likely due to blood loss from ORIF of left ankle fracture Aftercare following surgery of the musculoskeletal system, NEC (Acute) - Physical Exam Vitals/I&O's: Vital Signs Temp Pulse Resp BP Pulse Ox 97.6 F L 64 16 104/53 L 98 07/11/19 08:05 07/11/19 08:05 07/11/19 08:05 07/11/19 08:05 07/11/19 08:05 Oxygen Flow Rate (L/min) 1 Oxygen Delivery Method Room Air Weight: 182 lb 8.684 oz Body Mass Index (BMI) 33.3 Intake and Output for Last 24 Hours 07/09/19 07/10/19 07/11/19 23:59 23:59 23:59 Intake Total 240 / 240 360 / 360 Balance 240 / 240 360 / 360 Current Medications Acetaminophen (Tylenol) 1,000 mg PO Q8 [facility] Last Admin: 07/11/19 05:20 Dose: 1,000 mg Documented by: Bisacodyl (Dulcolax) 10 mg RECTAL .PRN X 1 PRN PRN Reason: Constipation Calamine/Phenol (Calmoseptine Ointment) 1 applic TOPICAL BID [facility]; Protocol Last Admin: 07/11/19 07:31 Dose: 1 applicatio Documented by: Calcium/Vitamin D (Os-Mikael 500mg + D) 1 tablet PO DAILYCM [facility] Last Admin: 07/11/19 07:27 Dose: 1 tablet Documented by: Cholecalciferol (Vitamin D) 1,000 unit PO DAILY [facility] Last Admin: 07/11/19 07:28 Dose: 1,000 unit Documented by: Enoxaparin Sodium (Lovenox) 40 mg SC DAILY@0600 [facility] Last Admin: 07/11/19 05:19 Dose: 40 mg Documented by: Furosemide (Lasix) 40 mg PO BID@0600,1800 [facility] Last Admin: 07/11/19 05:19 Dose: 40 mg Documented by: Levothyroxine Sodium (Synthroid) 75 mcg PO DAILY@0600 [facility] Last Admin: 07/11/19 05:19 Dose: 75 mcg Documented by: Magnesium Hydroxide (Milk Of Magnesia) 30 ml PO .PRN X 1 PRN PRN Reason: Constipation Metoprolol Succinate (Toprol Xl (Beta Evelio)) 25 mg PO DAILY [facility] Last Admin: 07/11/19 07:27 Dose: 25 mg Documented by: Multivitamins/Minerals (Multivitamin With Minerals (Bkc)) 1 tablet PO DAILY@0800 [facility] Last Admin: 07/11/19 07:28 Dose: 1 tablet Documented by: Nystatin (Mycostatin Powder) 1 applic TOPICAL BID [facility]; Protocol Last Admin: 07/11/19 07:31 Dose: 1 applicatio Documented by: Oxycodone HCl (Oxyir) 5 mg PO Q4H PRN PRN PRN Reason: PAIN SCORE -02/27 Last Admin: 07/10/19 16:52 Dose: 5 mg Documented by: Potassium Chloride (K-Dur) 10 meq PO BID [facility] Last Admin: 07/11/19 07:28 Dose: 10 meq Documented by: Psyllium Hydrophilic Mucilloid (Metamucil) 1 packet PO DAILY [facility] Last Admin: 07/11/19 07:31 Dose: 1 packet Documented by: Senna/Docusate Sodium (Senokot-S, Treva-Colace) 2 tablet PO BID [facility] Last Admin: 07/11/19 07:30 Dose: 2 tablet Documented by: Home Medications: Medications to take at Discharge Calcium Carbonate/Vitamin D3 [Calcium 600-Vit D3 800 Tablet] 1 tab PO DAILY 06/30/19 Cholecalciferol (VIT D3) [Vitamin D3] 1,000 unit PO DAILY 06/30/19 Furosemide [Lasix] 40 mg PO BID 06/30/19 Levothyroxine [Synthroid] 75 mcg PO DAILY 06/30/19 Multivitamin with Minerals [One Daily Plus Minerals] 1 tab PO DAILY 06/30/19 [place]-3 Fatty Acids [Fish Oil] 2 tab PO DAILY 06/30/19 Potassium Chloride [K-Dur] 10 meq PO BID 06/30/19 Psyllium [Metamucil] 1 packet PO DAILY 06/30/19 Acetaminophen [Tylenol Extra Strength] 1,000 mg PO Q8 07/10/19 Enoxaparin Sodium [Lovenox] 40 mg SQ DAILY 07/10/19 Metoprolol Succinate 25 mg PO DAILY #0 07/10/19 Oxycodone [Oxyir] 5 mg PO Q4H PRN PRN 07/10/19 Primary Care Physician: Jimbo Koch III, MD [Primary Care Provider] - Disposition: Acute care Hospital Minutes spent on discharge:: 30 Patient Condition:: Good Medical Necessity - Tobacco Use Smoking Status: Never smoker Tobacco Use: Non-smoker Meaningful Use Info Meaningful Use Diagnoses (Choose all that apply): None applicable Code Visit Inpatient E&M: 28024 Disch Hosp
--- NOTE | 2019-07-11 12:07 | CASEMGMT ---
Social Work Reviewed and agreed with social work international account representative documentation on this date. Lexi Suresh, SACK SORTER PRESS WASHER
[2019-07-11 13:00] VITALS: O2SAT 93
[2019-07-11 19:50] VITALS: BP 112/52; PULSE 80; RESP 18; TEMP 36.8; O2SAT 93
--- NOTE | 2019-07-11 20:11 | NURSING ---
2200 meds given at this time per pt request
[2019-07-11] MEDS: oxyCODONE 5 MG Tablet PO (21:39)
[2019-07-12] MEDS: Enoxaparin 40 MG/0.4 ML Syringe SC (05:43)
[2019-07-12] MEDS: Levothyroxine 75 MCG Tablet PO (05:43)
[2019-07-12] MEDS: Furosemide 40 MG Tablet PO ×2 (05:43→17:10)
[2019-07-12] MEDS: Acetaminophen 500 MG Tablet 1000 MG PO ×3 (05:43→21:56)
[2019-07-12 07:00] VITALS: BP 113/64; PULSE 67; RESP 16; TEMP 36.9; O2SAT 95
[2019-07-12 07:18] VITALS: O2SAT 92
[2019-07-12] MEDS: Multivitamins,Ther W-Minerals Tablet 1 TABLET PO (08:10)
[2019-07-12 08:11] VITALS: BP 113/64; PULSE 67
[2019-07-12] MEDS: Metoprolol(XL)Succ 25 MG Tablet PO (08:11)
[2019-07-12] MEDS: Psyllium 1 PACKET PO (08:11)
[2019-07-12] MEDS: Calcium Carb/Vitamin D 1 TABLET Tablet PO (08:11)
[2019-07-12] MEDS: Nystatin Powder 15gm Bottle 1 APPLIC TOPICAL ×2 (08:14→21:57)
[2019-07-12] MEDS: Menthol/Lanolin/Calamine/Znox 113 GM Tube 1 APPLIC TOPICAL ×2 (08:15→21:58)
[2019-07-12] MEDS: oxyCODONE 5 MG Tablet PO (08:27)
[2019-07-12 20:29] VITALS: BP 145/60; PULSE 67; RESP 16; TEMP 36.5; O2SAT 96
[2019-07-13] MEDS: Acetaminophen 500 MG Tablet 1000 MG PO ×3 (05:10→22:13)
[2019-07-13] MEDS: oxyCODONE 5 MG Tablet PO (05:10)
[2019-07-13] MEDS: Enoxaparin 40 MG/0.4 ML Syringe SC (05:11)
[2019-07-13] MEDS: Furosemide 40 MG Tablet PO ×2 (05:11→17:59)
[2019-07-13] MEDS: Levothyroxine 75 MCG Tablet PO (06:32)
[2019-07-13 07:34] VITALS: O2SAT 90
[2019-07-13 07:35] VITALS: PULSE 77
[2019-07-13] MEDS: Psyllium 1 PACKET PO (07:35)
[2019-07-13] MEDS: Multivitamins,Ther W-Minerals Tablet 1 TABLET PO (07:35)
[2019-07-13] MEDS: Metoprolol(XL)Succ 25 MG Tablet PO (07:35)
[2019-07-13] MEDS: Calcium Carb/Vitamin D 1 TABLET Tablet PO (07:35)
[2019-07-13] MEDS: Nystatin Powder 15gm Bottle 1 APPLIC TOPICAL ×2 (07:58→22:15)
[2019-07-13] MEDS: Menthol/Lanolin/Calamine/Znox 113 GM Tube 1 APPLIC TOPICAL ×2 (07:58→22:15)
[2019-07-13 09:41] VITALS: BP 140/65; PULSE 70; RESP 20; TEMP 36.6; O2SAT 96
[2019-07-13 19:31] VITALS: BP 126/56; PULSE 81; RESP 16; TEMP 36.8; O2SAT 95
[2019-07-14] MEDS: Furosemide 40 MG Tablet PO ×2 (05:58→16:06)
[2019-07-14] MEDS: Enoxaparin 40 MG/0.4 ML Syringe SC (05:58)
[2019-07-14] MEDS: Acetaminophen 500 MG Tablet 1000 MG PO ×3 (05:58→20:48)
[2019-07-14] MEDS: Levothyroxine 75 MCG Tablet PO (05:58)
[2019-07-14 07:11] VITALS: O2SAT 93
[2019-07-14 07:36] VITALS: BP 114/50; PULSE 67; RESP 16; TEMP 36.3; O2SAT 92
[2019-07-14 07:57] VITALS: PULSE 67
[2019-07-14] MEDS: Psyllium 1 PACKET PO (07:57)
[2019-07-14] MEDS: Multivitamins,Ther W-Minerals Tablet 1 TABLET PO (07:57)
[2019-07-14] MEDS: Calcium Carb/Vitamin D 1 TABLET Tablet PO (07:57)
[2019-07-14] MEDS: Metoprolol(XL)Succ 25 MG Tablet PO (07:57)
[2019-07-14] MEDS: Menthol/Lanolin/Calamine/Znox 113 GM Tube 1 APPLIC TOPICAL ×2 (08:01→20:46)
[2019-07-14] MEDS: Nystatin Powder 15gm Bottle 1 APPLIC TOPICAL ×2 (08:01→20:47)
--- NOTE | 2019-07-14 09:56 | CASEMGMT ---
Social Work IDT met with pt and pt sister. Pt min assist for transfers, NWB to LLE, hopping with walker-7ft, self propelling w/c at SBA-150ft, but gets fatigued, CGA-toileting tasks, min assist LE with adaptive equipment, set up UE ADLS. Educated pt on , approved 15 days, DC 07/24. Pt and sister has reservations about returning home, discussed alternatives at end of rehab. Gabbi Black, social work public health internship Lexi Suresh, WARPING MACHINE OPERATOR BREAST TRIMMER
--- NOTE | 2019-07-14 10:19 | PCM.PN.BLA ---
Progress Note The patient was seen on team rounds today. Her sister was present in the room for rounds. Afebile VSS-blood pressure is well controlled. Heart rate is within normal limits. Maintaining appropriate oxygen saturation on RA Discussed with nursing - no problems that need addressed Reviewed the PT/OT notes Medication list reviewed. Pain is adequately controlled. She is on Lovenox 40 mg daily for DVT prevention She has no complaints. Denies CP, SOB, palpitations, nausea, constipation. Denies lightheadedness. Last bowel movement was 07/13/2019. Alert, oriented x3, cooperative, no apparent distress No JVD Lungs-clear to auscultation, diminished in the left base and this is chronic due to paralysis of the left hemidiaphragm Heart-regular rate and rhythm with occasional ectopic beat. No change in the systolic murmur heard at the second right intercostal space secondary to aortic stenosis Abdomen-soft, nontender, nondistended, no guarding with palpation, normal bowel sounds heard She has intact sensation to the digits on the left foot and they are warm to touch. No edema on the right side. Impressions 1. Physical debility secondary to recent distal left ankle fracture and subsequent ORIF on 07/09/[address] De Luna. Patient is nonweightbearing on the left lower extremity and has balance issues. She lives by herself and has stairs to go down to her basement and a few steps to go into the house. She is admitted for greater than 3 hours of therapy daily for at least 5 days a week to return her at or near her prior level of independence. She was independent with mobility, ADLs and driving prior to the fracture. She tells me that she has had a DEXA in the past and she does not have osteoporosis. She sees an operator cavity pump who manages the bone density. she and her sister are very worried about her going home because she lives by herself. She thinks she should go to a SNF from rehab until she can bear weight on the LLE. DC date is 10/22/19 2. Ventricular ectopy. Asymptomatic in a pt with a normal EF and normal K and MAG.......no tx necessary. She will follow up with Dr. Monsalve going forward as previously arranged. 3. Mild to moderate aortic stenosis-stable Daily weights since she is on BID Lasix check a BMP, mag and an HH in the AM. Continue current medications SW is aware that the pt would like transitional care prior to going home STROKE Vital Signs/Narrative: Vital Signs Temp Pulse Resp BP Pulse Ox 07/14/19 07:57 67 07/14/19 07:36 97.4 F L 67 16 114/50 L 92 07/14/19 07:11 93 Code Visit Inpatient E&M: 08522 Subs Hosp L2
[2019-07-14 19:20] VITALS: BP 127/64; PULSE 86; RESP 16; TEMP 36.8; O2SAT 92
[2019-07-14 20:15] VITALS: PULSE 86; RESP 16; O2SAT 92
[2019-07-15] MEDS: oxyCODONE 5 MG Tablet PO (01:49)
[2019-07-15] MEDS: Acetaminophen 500 MG Tablet 1000 MG PO ×3 (05:25→21:42)
[2019-07-15] MEDS: Levothyroxine 75 MCG Tablet PO (05:25)
[2019-07-15] MEDS: Furosemide 40 MG Tablet PO ×2 (05:25→17:36)
[2019-07-15] MEDS: Enoxaparin 40 MG/0.4 ML Syringe SC (05:25)
[2019-07-15 06:11] LABS: Hematocrit 37.5 % (37-47); Hemoglobin 11.7 g/dL (12.0-15.0)
[2019-07-15 06:37] LABS: Anion Gap 3 (5-15); BUN 22 mg/dL (7-18); BUN/Creat Ratio 24.6 RATIO (10-20); Chloride 103 mmol/L (98-107); Creatinine, Serum 0.89 mg/dL (0.55-1.02); EST Glomerular Filtration Rate 64 mL/min (>60); Est Glom Filt Rate - Afr Amer 78 mL/min (>60); Estimated Creatinine Clearance 38.54 ml/min; Glucose 92 mg/dL (74-106); Magnesium 2.3 mg/dL (1.6-2.6); Potassium 3.7 mmol/L (3.5-5.1); Sodium Level 140 mmol/L (136-145)
[2019-07-15 07:00] VITALS: BP 118/69; PULSE 79; RESP 16; TEMP 36.4; O2SAT 93
[2019-07-15 07:04] VITALS: O2SAT 96
[2019-07-15] MEDS: Calcium Carb/Vitamin D 1 TABLET Tablet PO (08:04)
[2019-07-15] MEDS: Psyllium 1 PACKET PO (08:04)
[2019-07-15] MEDS: Multivitamins,Ther W-Minerals Tablet 1 TABLET PO (08:04)
[2019-07-15 08:05] VITALS: BP 118/69; PULSE 79
[2019-07-15] MEDS: Metoprolol(XL)Succ 25 MG Tablet PO (08:05)
[2019-07-15] MEDS: Menthol/Lanolin/Calamine/Znox 113 GM Tube 1 APPLIC TOPICAL ×2 (08:10→21:42)
[2019-07-15] MEDS: Nystatin Powder 15gm Bottle 1 APPLIC TOPICAL ×2 (08:11→21:42)
[2019-07-15 09:18] VITALS: PULSE 80
[2019-07-15 19:41] VITALS: BP 125/56; PULSE 78; RESP 18; TEMP 36.6; O2SAT 18
[2019-07-15 21:20] VITALS: PULSE 78; RESP 18; O2SAT 98
[2019-07-16] MEDS: Enoxaparin 40 MG/0.4 ML Syringe SC (06:37)
[2019-07-16] MEDS: Levothyroxine 75 MCG Tablet PO (06:38)
[2019-07-16] MEDS: Acetaminophen 500 MG Tablet 1000 MG PO ×3 (06:38→21:48)
[2019-07-16] MEDS: Furosemide 40 MG Tablet PO ×2 (06:38→16:45)
[2019-07-16 07:35] VITALS: O2SAT 92
[2019-07-16 08:22] VITALS: PULSE 71
[2019-07-16] MEDS: Multivitamins,Ther W-Minerals Tablet 1 TABLET PO (08:22)
[2019-07-16] MEDS: Psyllium 1 PACKET PO (08:22)
[2019-07-16] MEDS: Calcium Carb/Vitamin D 1 TABLET Tablet PO (08:22)
[2019-07-16] MEDS: Metoprolol(XL)Succ 25 MG Tablet PO (08:22)
[2019-07-16] MEDS: Nystatin Powder 15gm Bottle 1 APPLIC TOPICAL ×2 (08:28→20:10)
[2019-07-16] MEDS: Menthol/Lanolin/Calamine/Znox 113 GM Tube 1 APPLIC TOPICAL ×2 (08:29→20:10)
[2019-07-16 09:14] VITALS: BP 110/63; PULSE 71; RESP 16; TEMP 36.3; O2SAT 92
--- NOTE | 2019-07-16 12:25 | PN.ORTHO_ITS ---
Patient Problems: Active and Suspected Problems (Last Reviewed 07/11/19 @ 10:[address] Cecille Brito, ) Status post ORIF of fracture of ankle (Acute) Dr. De Luna on 07/09/19 Left ankle Normochromic normocytic anemia (Acute) Likely due to blood loss from ORIF of left ankle fracture Subjective: Patient states that she is doing very well at this time and states that she is not having any pains. She states that she felt two areas on the leg that felt like they were rubbing and so wanted to have them looked at. She states that there is one area on the proximal end of the cast and she just tucked the delfino wrap down it and it stopped rubbing. The other area is on the lateral aspect of the ankle. She states that she only noticed the feeling at night and thinks its because the ankle rolls onto the side. She has no calf pains and is able to still wiggle her toes and has good feeling in the leg. Objective: Patient was just wheeled back from physical therapy and thus is in her wheel chair for exam. She has no signs of distress or acute pains. She is pleasant and cooperative and appropriately conversive. Bulky dressing was removed to be able to evaluate the skin where she had blisters pre-op as well as the incision site. The blistered areas all have healed without any open skin with exception of the blister on the anterior snow (this was from skin tenting from the bone). There is no erythema, discharge, warmth or tenderness around the blisters to indicate infection. Likewise the incision site shows very good approximation without surrounding erythema, discharge, warmth, or tenderness on palpation. She does not have any calf tenderness and has a negative homans. She has good sensation throughout the extremity and intact motor function of the ankle/foot/toes. - Physical Exam Vitals/I&O's: Vital Signs Temp Pulse Resp BP Pulse Ox 97.4 F L 71 16 110/63 92 07/16/19 09:14 07/16/19 09:14 07/16/19 09:14 07/16/19 09:14 07/16/19 09:14 Oxygen Flow Rate (L/min) 1 Oxygen Delivery Method Room Air Weight: 176 lb 9.444 oz Body Mass Index (BMI) 33.3 Intake and Output for Last 24 Hours 07/14/19 07/15/19 07/16/19 23:59 23:59 23:59 Intake Total 960 / 960 420 / 420 Output Total 200 / 200 300 / 300 Balance 760 / 760 120 / 120 General: Alert, Oriented x3, Cooperative, No apparent distress Lungs: Normal air movement - normal respirations. No breathing change with conversation Skin: No rashes, Ulcer/ Wound - see above, Incision Neurological: Sensory exam intact to light touch and pain - light touch Psych/Mental Status: Normal Affect, Appropriate Current Medications Acetaminophen (Tylenol) 1,000 mg PO Q8 [facility] Last Admin: 07/16/19 06:38 Dose: 1,000 mg Documented by: Bisacodyl (Dulcolax) 10 mg RECTAL .PRN X 1 PRN PRN Reason: Constipation Calamine/Phenol (Calmoseptine Ointment) 1 applic TOPICAL BID [facility]; Protocol Last Admin: 07/16/19 08:29 Dose: 1 applicatio Documented by: Calcium/Vitamin D (Os-Mikael 500mg + D) [facility] Last Admin: 07/16/19 08:22 Dose: 1 tablet Documented by: Cholecalciferol (Vitamin D) 1,000 unit PO DAILY [facility] Last Admin: 07/16/19 08:22 Dose: 1,000 unit Documented by: Enoxaparin Sodium (Lovenox) 40 mg SC DAILY@0600 [facility] Last Admin: 07/16/19 06:37 Dose: 40 mg Documented by: Furosemide (Lasix) 40 mg PO BID@0600,1800 [facility] Last Admin: 07/16/19 06:38 Dose: 40 mg Documented by: Levothyroxine Sodium (Synthroid) 75 mcg PO DAILY@0600 [facility] Last Admin: 07/16/19 06:38 Dose: 75 mcg Documented by: Magnesium Hydroxide (Milk Of Magnesia) 30 ml PO .PRN X 1 PRN PRN Reason: Constipation Metoprolol Succinate (Toprol Xl (Beta Evelio)) 25 mg PO DAILY [facility] Last Admin: 07/16/19 08:22 Dose: 25 mg Documented by: Multivitamins/Minerals (Multivitamin With Minerals (Bkc)) 1 tablet PO DAILY@0800 [facility] Last Admin: 07/16/19 08:22 Dose: 1 tablet Documented by: Nystatin (Mycostatin Powder) 1 applic TOPICAL BID [facility]; Protocol Last Admin: 07/16/19 08:28 Dose: 1 applicatio Documented by: Oxycodone HCl (Oxyir) 5 mg PO Q4H PRN PRN PRN Reason: PAIN SCORE 1-10/10 Last Admin: 07/15/19 01:49 Dose: 5 mg Documented by: Potassium Chloride (K-Dur) 10 meq PO BID [facility] Last Admin: 07/16/19 08:22 Dose: 10 meq Documented by: Psyllium Hydrophilic Mucilloid (Metamucil) 1 packet PO DAILY [facility] Last Admin: 07/16/19 08:22 Dose: 1 packet Documented by: Senna/Docusate Sodium (Senokot-S, Treva-Colace) 2 tablet PO BID [facility] Last Admin: 07/16/19 08:22 Dose: Not Given Documented by: Medical Necessity - Tobacco Use Smoking Status: Never smoker Tobacco Use: Non-smoker Assessment/Plan All Active Problems (Last Reviewed 07/11/19 @ 10:[address] Cecille Brito, DO) Status post ORIF of fracture of ankle (Acute) Normochromic normocytic anemia (Acute) Aftercare following surgery of the musculoskeletal system, NEC (Acute) Closed fracture dislocation of left ankle joint (Acute) Physical debility (Acute) History of aortic valve replacement with bioprosthetic valve (Resolved 05/06/12) Acute medial meniscus tear of left knee (Resolved) Evaluation today for patient complaint of some irritation/rubbing on two areas. The two areas are on the edge of the posterior splint and area likely secondary to her decreased swelling and loosening delfino wrap. Her blistered areas, which were present pre-operative, and her incision site looks great without any signs of infection or acute inflammation. The Incision has good approximation of wound edges and also has no signs of infection or acute inflammation. She is neurovascularly intact at this time. The wounds were covered with adaptic for a nonadherent coverage and then web roll was used to re-pad the extremity before the posterior splint was re-applied. Delfino wrap was then used to secure the splint. If patient complains of irritation under the splint or at its edges, it would be ok to loosen the overlying dressing to where there is no pressure against the splint. Notify of any numbness/tingling, increased pains, increased swelling, calf pains/tenderness, or any other signs or symptoms. Otherwise continue with PT/OT and continue other medical management. Patient to have her sutures removed at one week which would be her 2 week post-op evaluation. Continue with elevation and icing to the ankle.
--- NOTE | 2019-07-16 13:04 | PCM.PN.BLA ---
Progress Note Afebrile Vital signs stable Patient complained of pain in her left ankle overnight and orthopedics was contacted. I was present for the dressing change on [place] today by ortho PAPatel. The incision margins are coapted well and there is no dehiscence. There is no ferdinand-incisional erythema and no purulent DC. There is a pressure ulcer on the top of the foot at the junction between the foot and the leg that is stage 2......does not appear to be infected. The was from internal pressure form the bone tenting the skin prior to ORIF. The other blisters are healed. Patel changed the dressing. Impressions 1. Internal pressure ulcer of the L ankle due to the bone causing skin tenting prior to ORIF. No infection present. Continue therapy. STROKE Vital Signs/Narrative: Vital Signs Temp Pulse Resp BP Pulse Ox 07/16/19 09:14 97.4 F L 71 16 110/63 92 Code Visit Inpatient E&M: 49774 Subs Hosp L1
[2019-07-16 20:00] VITALS: BP 127/61; PULSE 82; RESP 16; TEMP 36.9; O2SAT 94
[2019-07-17] MEDS: Levothyroxine 75 MCG Tablet PO (05:45)
[2019-07-17] MEDS: Furosemide 40 MG Tablet PO ×2 (05:45→16:47)
[2019-07-17] MEDS: Acetaminophen 500 MG Tablet 1000 MG PO ×3 (05:45→21:56)
[2019-07-17] MEDS: Enoxaparin 40 MG/0.4 ML Syringe SC (05:46)
[2019-07-17 07:50] VITALS: BP 135/73; PULSE 76; RESP 16; TEMP 36.5; O2SAT 96
[2019-07-17 08:25] VITALS: PULSE 76
[2019-07-17] MEDS: Metoprolol(XL)Succ 25 MG Tablet PO (08:25)
[2019-07-17] MEDS: Psyllium 1 PACKET PO (08:25)
[2019-07-17] MEDS: Calcium Carb/Vitamin D 1 TABLET Tablet PO (08:29)
[2019-07-17] MEDS: Multivitamins,Ther W-Minerals Tablet 1 TABLET PO (08:30)
[2019-07-17] MEDS: Nystatin Powder 15gm Bottle 1 APPLIC TOPICAL ×2 (08:33→21:57)
[2019-07-17] MEDS: Menthol/Lanolin/Calamine/Znox 113 GM Tube 1 APPLIC TOPICAL ×2 (08:34→21:57)
--- NOTE | 2019-07-17 11:33 | PN_ITS ---
Progress Note Afebile VSS Maintaining appropriate oxygen saturation on RA while awake Oral intake is good The weight has decreased from 182 lbs on 07/10 to 175 today......she is on Lasix BID.....for diastolic CHF with preserved EF Discussed with nursing - no problems that need addressed Reviewed the PT/OT notes Medication list reviewed. Alert, oriented x3, no apparent distress, sitting at the bedside in a chair. Lungs-clear to auscultation but decreased in the left base secondary to chronic paralysis of left hemidiaphragm Heart-regular rate and rhythm, no gallop Abdomen-soft, nontender, nondistended, obese, normal bowel sounds Intact neurovascular bundle to both lower extremities MM are dry Impressions 1. Physical debility secondary to recent fall resulting in a left ankle fracture. Patient is status post ORIF of the ankle by Dr. De Luna. She continues to be nonweightbearing. 2. Pressure ulcer on the dorsum of the foot at the junction of the foot and snow secondary to internal pressure from tenting of the skin by the bone prior to ORIF. No evidence of infection 3. Chronic diastolic congestive heart failure with dry mucous membranes-on twice daily Lasix Orthostatics in the AM BMP and a MAG in the AM May need to cut back on the Lasix to once daily. Pt wants to go to snf at [place].....until she is able to bear weight on the LLE. She lives alone She has been at [facility] and [facility] in the past and is agreeable to either or to TCU if a bed is open STROKE Vital Signs/Narrative: Vital Signs Temp Pulse Resp BP Pulse Ox 07/17/19 08:25 76 07/17/19 07:50 97.7 F L 76 16 135/73 H 96 Code Visit Inpatient E&M: 28547 Subs Hosp L2
[2019-07-17 19:29] VITALS: BP 100/64; PULSE 79; RESP 18; TEMP 36.8
[2019-07-18 04:54] VITALS: BP 125/64; BP 142/61; BP 96/72; PULSE 67; PULSE 69; PULSE 76
[2019-07-18] MEDS: Acetaminophen 500 MG Tablet 1000 MG PO ×3 (05:01→20:55)
[2019-07-18] MEDS: Levothyroxine 75 MCG Tablet PO (05:01)
[2019-07-18] MEDS: Furosemide 40 MG Tablet PO ×2 (05:01→18:20)
[2019-07-18] MEDS: Enoxaparin 40 MG/0.4 ML Syringe SC (05:02)
[2019-07-18 06:40] LABS: Anion Gap 5 (5-15); BUN 20 mg/dL (7-18); BUN/Creat Ratio 24.4 RATIO (10-20); Calcium,Total 8.6 mg/dL (8.5-10.1); Chloride 102 mmol/L (98-107); Creatinine, Serum 0.82 mg/dL (0.55-1.02); EST Glomerular Filtration Rate 71 mL/min (>60); Est Glom Filt Rate - Afr Amer 86 mL/min (>60); Estimated Creatinine Clearance 41.83 ml/min; Glucose 91 mg/dL (74-106); Magnesium 2.3 mg/dL (1.6-2.6); Potassium 3.8 mmol/L (3.5-5.1); Sodium Level 139 mmol/L (136-145)
[2019-07-18 07:00] VITALS: BP 125/64; PULSE 67; RESP 18; TEMP 36.4; O2SAT 92
[2019-07-18] MEDS: Multivitamins,Ther W-Minerals Tablet 1 TABLET PO (08:20)
[2019-07-18 08:21] VITALS: BP 125/64; PULSE 67
[2019-07-18] MEDS: Psyllium 1 PACKET PO (08:21)
[2019-07-18] MEDS: Calcium Carb/Vitamin D 1 TABLET Tablet PO (08:21)
[2019-07-18] MEDS: Metoprolol(XL)Succ 25 MG Tablet PO (08:21)
[2019-07-18] MEDS: Nystatin Powder 15gm Bottle 1 APPLIC TOPICAL ×2 (08:22→20:57)
[2019-07-18] MEDS: Menthol/Lanolin/Calamine/Znox 113 GM Tube 1 APPLIC TOPICAL ×2 (08:22→20:56)
--- NOTE | 2019-07-18 14:43 | PCM.PN.BLA ---
Progress Note Afebrile Vital signs stable. Orthostatics were positive when sitting up but the blood pressure did improve with standing. All lab was personally reviewed. Serum bicarb is 32 today, down from 34 on 07/15/2019. Hemoglobin today is 11.7, up from 10.1 on 07/10/2019. The BUN is 20 and the creatinine is 0.82 which is within her baseline. Denies lightheadedness Lungs - CTA but diminished in the left base which is chronic Impressions 1. Debility due to recent left ankle fracture and ORIF. Continue current orders Code Visit Inpatient E&M: 86988 Subs Hosp L1
[2019-07-18 19:28] VITALS: BP 133/75; PULSE 84; RESP 16; TEMP 36.6; O2SAT 95
[2019-07-18] MEDS: oxyCODONE 5 MG Tablet PO (20:55)
[2019-07-19] MEDS: Levothyroxine 75 MCG Tablet PO (05:05)
[2019-07-19] MEDS: Acetaminophen 500 MG Tablet 1000 MG PO ×3 (05:05→21:23)
[2019-07-19] MEDS: Furosemide 40 MG Tablet PO ×2 (05:06→16:48)
[2019-07-19] MEDS: Enoxaparin 40 MG/0.4 ML Syringe SC (05:06)
[2019-07-19] MEDS: Calcium Carb/Vitamin D 1 TABLET Tablet PO (08:03)
[2019-07-19] MEDS: Multivitamins,Ther W-Minerals Tablet 1 TABLET PO (08:03)
[2019-07-19 09:02] VITALS: BP 117/50; PULSE 73; RESP 12; TEMP 36.5; O2SAT 95
[2019-07-19] MEDS: Menthol/Lanolin/Calamine/Znox 113 GM Tube 1 APPLIC TOPICAL ×2 (09:41→21:25)
[2019-07-19] MEDS: Psyllium 1 PACKET PO (09:42)
[2019-07-19 09:43] VITALS: BP 117/50; PULSE 73
[2019-07-19] MEDS: Metoprolol(XL)Succ 25 MG Tablet PO (09:43)
[2019-07-19] MEDS: Nystatin Powder 15gm Bottle 1 APPLIC TOPICAL ×2 (09:44→21:26)
--- NOTE | 2019-07-19 12:47 | PN_ITS ---
Patient Problems: Active and Suspected Problems (Last Reviewed 07/11/19 @ 10:[address] Cecille Brito, DO) Status post ORIF of fracture of ankle (Acute) Dr. De Luna on 07/09/19 Left ankle Normochromic normocytic anemia (Acute) Likely due to blood loss from ORIF of left ankle fracture Reason for Visit: Follow-up physical debility Subjective: Patient is an 84-year-old lady currently undergoing rehab following debility with recent left ankle fracture with ORIF. Patient seen pain is tolerable. Objective: GENERAL: cooperative HEENT: Atraumatic; EYES; Anicteric, Normal Conjunctiva NECK; supple, normal thyroid, RESPIRATORY: Diminished to auscultation CARDIOVASCULAR: Regular S1 S2, GI: soft, normoactive bowel sounds, : No Renal angle tenderness; EXTREMITIES: No edema, no clubbing, MUSCULOSKELETAL: no muscle waisting NEURO: Awake; no lateralizing signs. SKIN: No Rash PSYCH; Flat affect Vitals/I&O's: Vital Signs Temp Pulse Resp BP Pulse Ox 97.7 F L 73 12 117/50 L 95 07/19/19 09:02 07/19/19 09:43 07/19/19 09:02 07/19/19 09:43 07/19/19 09:02 Oxygen Flow Rate (L/min) 92 Oxygen Delivery Method Room Air Weight: 78.8 kg Body Mass Index (BMI) 33.3 Intake and Output for Last 24 Hours 07/17/19 07/18/19 07/19/19 23:59 23:59 23:59 Intake Total 720 / 720 300 / 300 240 / 240 Output Total 600 / 600 Balance 120 / 120 300 / 300 240 / 240 Current Medications Acetaminophen (Tylenol) 1,000 mg PO Q8 [facility] Last Admin: 07/19/19 05:05 Dose: 1,000 mg Documented by: Bisacodyl (Dulcolax) 10 mg RECTAL .PRN X 1 PRN PRN Reason: Constipation Calamine/Phenol (Calmoseptine Ointment) 1 applic TOPICAL BID [facility]; Protocol Last Admin: 07/19/19 09:41 Dose: 1 applicatio Documented by: Calcium/Vitamin D (Os-Mikael 500mg + D) 1 tablet PO DAILYCM [facility] Last Admin: 07/19/19 08:03 Dose: 1 tablet Documented by: Cholecalciferol (Vitamin D) 1,000 unit PO DAILY [facility] Last Admin: 07/19/19 09:43 Dose: 1,000 unit Documented by: Enoxaparin Sodium (Lovenox) 40 mg SC DAILY@0600 [facility] Last Admin: 07/19/19 05:06 Dose: 40 mg Documented by: Furosemide (Lasix) 40 mg PO BID@0600,1800 [facility] Last Admin: 07/19/19 05:06 Dose: 40 mg Documented by: Levothyroxine Sodium (Synthroid) 75 mcg PO DAILY@0600 [facility] Last Admin: 07/19/19 05:05 Dose: 75 mcg Documented by: Magnesium Hydroxide (Milk Of Magnesia) 30 ml PO .PRN X 1 PRN PRN Reason: Constipation Metoprolol Succinate (Toprol Xl (Beta Evelio)) 25 mg PO DAILY [facility] Last Admin: 07/19/19 09:43 Dose: 25 mg Documented by: Multivitamins/Minerals (Multivitamin With Minerals (Bkc)) 1 tablet PO DAILY @0800 [facility] Last Admin: 07/19/19 08:03 Dose: 1 tablet Documented by: Nystatin (Mycostatin Powder) 1 applic TOPICAL BID [facility]; Protocol Last Admin: 07/19/19 09:44 Dose: 1 applicatio Documented by: Oxycodone HCl (Oxyir) 5 mg PO Q4H PRN PRN PRN Reason: PAIN SCORE 1-10/10 Last Admin: 07/18/19 20:55 Dose: 5 mg Documented by: Potassium Chloride (K-Dur) 10 meq PO BID [facility] Last Admin: 07/19/19 09:41 Dose: 10 meq Documented by: Psyllium Hydrophilic Mucilloid (Metamucil) 1 packet PO DAILY [facility] Last Admin: 07/19/19 09:42 Dose: 1 packet Documented by: Senna/Docusate Sodium (Senokot-S, Treva-Colace) 2 tablet PO BID [facility] Last Admin: 07/19/19 09:43 Dose: Not Given Documented by: STROKE Vital Signs/Narrative: Vital Signs Temp Pulse Resp BP Pulse Ox 07/19/19 09:43 73 117/50 L 07/19/19 09:02 97.7 F L 73 12 117/50 L 95 Medical Necessity - Tobacco Use Smoking Status: Never smoker Tobacco Use: Non-smoker Assessment/Plan All Active Problems (Last Reviewed 07/11/19 @ 10:[address] Cecille Brito, DO) Status post ORIF of fracture of ankle (Acute) Normochromic normocytic anemia (Acute) Aftercare following surgery of the musculoskeletal system, NEC (Acute) Closed fracture dislocation of left ankle joint (Acute) Physical debility (Acute) History of aortic valve replacement with bioprosthetic valve (Resolved 05/06/12) Acute medial meniscus tear of left knee (Resolved) Patient is an 84-year-old lady currently undergoing rehab following debility with recent left ankle fracture with ORIF 1. Physical debility secondary to recent left ankle fracture status post ORIF Patient has been admitted to the inpatient rehab unit where she is currently undergoing therapy. 2. Hypothyroidism ~patient is on levothyroxine home dose continued 3. Hypertension ~ blood pressure controlled, home medications continued with dose adjustment as needed 4. DVT prophylaxis ?Lovenox Code Visit Inpatient E&M: 06331 Subs Hosp L2
[2019-07-19 19:15] VITALS: BP 110/40; PULSE 77; RESP 18; TEMP 36.6; O2SAT 95
[2019-07-19] MEDS: oxyCODONE 5 MG Tablet PO (21:24)
[2019-07-20] MEDS: Furosemide 40 MG Tablet PO ×2 (05:42→17:16)
[2019-07-20] MEDS: Enoxaparin 40 MG/0.4 ML Syringe SC (05:42)
[2019-07-20] MEDS: Levothyroxine 75 MCG Tablet PO (05:42)
[2019-07-20] MEDS: Acetaminophen 500 MG Tablet 1000 MG PO ×3 (05:42→21:39)
[2019-07-20 08:00] VITALS: BP 116/54; PULSE 67; RESP 18; TEMP 36.6; O2SAT 95
[2019-07-20] MEDS: Calcium Carb/Vitamin D 1 TABLET Tablet PO (08:06)
[2019-07-20] MEDS: Multivitamins,Ther W-Minerals Tablet 1 TABLET PO (08:06)
[2019-07-20 08:07] VITALS: PULSE 67
[2019-07-20] MEDS: Psyllium 1 PACKET PO (08:07)
[2019-07-20] MEDS: Metoprolol(XL)Succ 25 MG Tablet PO (08:07)
[2019-07-20] MEDS: Nystatin Powder 15gm Bottle 1 APPLIC TOPICAL ×2 (08:08→21:40)
[2019-07-20] MEDS: Menthol/Lanolin/Calamine/Znox 113 GM Tube 1 APPLIC TOPICAL ×2 (08:09→21:41)
[2019-07-20 19:11] VITALS: BP 135/57; PULSE 78; RESP 18; TEMP 36.4; O2SAT 95
[2019-07-20] MEDS: oxyCODONE 5 MG Tablet PO (21:44)
[2019-07-21] MEDS: Furosemide 40 MG Tablet PO ×2 (06:27→16:35)
[2019-07-21] MEDS: Levothyroxine 75 MCG Tablet PO (06:27)
[2019-07-21] MEDS: Acetaminophen 500 MG Tablet 1000 MG PO ×3 (06:27→20:14)
[2019-07-21] MEDS: Enoxaparin 40 MG/0.4 ML Syringe SC (06:27)
[2019-07-21] MEDS: Multivitamins,Ther W-Minerals Tablet 1 TABLET PO (08:09)
[2019-07-21] MEDS: Calcium Carb/Vitamin D 1 TABLET Tablet PO (08:09)
[2019-07-21] MEDS: Menthol/Lanolin/Calamine/Znox 113 GM Tube 1 APPLIC TOPICAL ×2 (08:10→20:15)
[2019-07-21] MEDS: Psyllium 1 PACKET PO (08:10)
[2019-07-21] MEDS: Nystatin Powder 15gm Bottle 1 APPLIC TOPICAL ×2 (08:10→20:15)
[2019-07-21 08:11] VITALS: PULSE 69
[2019-07-21] MEDS: Metoprolol(XL)Succ 25 MG Tablet PO (08:11)
[2019-07-21 08:44] VITALS: BP 110/62; PULSE 69; RESP 17; TEMP 36.5; O2SAT 96
--- NOTE | 2019-07-21 10:15 | CASEMGMT ---
Social Work IDT met with pt and sister. Pt CGA to SBA for transfers and is hopping 20ft. Pt to use knee sling for more stability and has not tried steps yet. Pt is set up Supervised for UE ADLs and with no adaptive equipment. Pt is CGA for toileting tasks and expresses needing help with posterior care. Educated pt to insurance, 15 days with a DC date of 07/24. Pt requesting to DC to a SNF until NWB status changed. Pt requesting TCU-referral made. Educated pt that beds are not guaranteed but would revisit her this week to finalize DC plans. Gabbi Black, social work investigator internal revenue Lexi Suresh, ULTRASOUND SPECIALIST PUBLIC HEALTH ADVISOR
--- NOTE | 2019-07-21 11:19 | PCM.PN.BLA ---
Progress Note Patient was seen on TEAM meeting today. Her sister Radha was present. Afebile VSS Maintaining appropriate oxygen saturation on RA Oral intake is good Discussed with nursing - no problems that need addressed Reviewed the PT/OT notes Medication list reviewed. Pain is well controlled. She is sleeping well. Last BM was 07/20/19. She has no complaints. Denies lightheadedness and also denies SOB at rest. She has chronic VALADEZ. alert, appropriate and oriented X 3. Sitting in the recliner at the bedside. Lungs - CTA Heart - RRR, normal S1 and S2, no gallop abd - soft, NT, ND, BS, BS's heard in all quadrants no edema of the R foot and intact neurovascular in the R toes. Still in a cast. no focal neurologic deficits Impressions 1. physical debility due to recent L ankle fracture with subsequent ORIF. Pain is well controlled. 2. Inyobvhhzwit-tyck-hmvgjzajse 3. History of left diaphragmatic paralysis-maintaining appropriate oxygen saturation on room air while awake 4. ANDRY-wears CPAP at night 5. DVT prophylaxis-Lovenox She will not be able to go home and be safe until she can bear weight on the LLE......which may be another 4-6 weeks. She lives by herself. She will need to go to SNF and is hoping to get a bed in TCU. KRYSTLE is aware and is working on this. All of Joselito and Toya questions were answered. STROKE Vital Signs/Narrative: Vital Signs Temp Pulse Resp BP Pulse Ox 07/21/19 08:44 97.7 F L 69 17 110/62 96 07/21/19 08:11 69 Code Visit Inpatient E&M: 15465 Subs Hosp L2
[2019-07-21 20:15] VITALS: PULSE 72; RESP 18; O2SAT 96
[2019-07-21 20:23] VITALS: BP 129/79; PULSE 72; RESP 18; TEMP 36.7; O2SAT 18
--- NOTE | 2019-07-22 04:05 | NURSING ---
Reviewed and agree with CHILD ATTENDANT documentation and charting.
[2019-07-22] MEDS: Acetaminophen 500 MG Tablet 1000 MG PO ×3 (06:10→20:10)
[2019-07-22] MEDS: Furosemide 40 MG Tablet PO ×2 (06:10→17:07)
[2019-07-22] MEDS: Levothyroxine 75 MCG Tablet PO (06:11)
[2019-07-22] MEDS: Enoxaparin 40 MG/0.4 ML Syringe SC (06:12)
[2019-07-22 09:09] VITALS: BP 122/50; PULSE 84; RESP 16; TEMP 36.8; O2SAT 92
[2019-07-22 09:10] VITALS: BP 122/50; PULSE 84
[2019-07-22] MEDS: Calcium Carb/Vitamin D 1 TABLET Tablet PO (09:10)
[2019-07-22] MEDS: Multivitamins,Ther W-Minerals Tablet 1 TABLET PO (09:10)
[2019-07-22] MEDS: Metoprolol(XL)Succ 25 MG Tablet PO (09:10)
[2019-07-22] MEDS: Psyllium 1 PACKET PO (09:11)
[2019-07-22] MEDS: Nystatin Powder 15gm Bottle 1 APPLIC TOPICAL ×2 (09:11→20:10)
[2019-07-22] MEDS: Menthol/Lanolin/Calamine/Znox 113 GM Tube 1 APPLIC TOPICAL ×2 (09:11→20:10)
[2019-07-22 18:52] VITALS: BP 138/80; PULSE 90; RESP 17; TEMP 36.7; O2SAT 96
[2019-07-22 20:10] VITALS: PULSE 90; RESP 17; O2SAT 96
--- NOTE | 2019-07-23 04:43 | NURSING ---
Reviewed and agree with CALL CENTER CONSULTANT documentation and charting.
[2019-07-23] MEDS: Enoxaparin 40 MG/0.4 ML Syringe SC (05:45)
[2019-07-23] MEDS: Furosemide 40 MG Tablet PO ×2 (05:46→16:39)
[2019-07-23] MEDS: Levothyroxine 75 MCG Tablet PO (05:46)
[2019-07-23] MEDS: Acetaminophen 500 MG Tablet 1000 MG PO ×3 (05:51→20:56)
[2019-07-23 08:24] VITALS: BP 122/67; PULSE 61; RESP 18; TEMP 36.6; O2SAT 97
[2019-07-23 08:40] VITALS: BP 122/67; PULSE 61
[2019-07-23] MEDS: Metoprolol(XL)Succ 25 MG Tablet PO (08:40)
[2019-07-23] MEDS: Calcium Carb/Vitamin D 1 TABLET Tablet PO (08:40)
[2019-07-23] MEDS: Multivitamins,Ther W-Minerals Tablet 1 TABLET PO (08:40)
[2019-07-23] MEDS: Nystatin Powder 15gm Bottle 1 APPLIC TOPICAL ×2 (08:41→20:56)
[2019-07-23] MEDS: Menthol/Lanolin/Calamine/Znox 113 GM Tube 1 APPLIC TOPICAL ×2 (08:42→20:57)
--- NOTE | 2019-07-23 15:58 | CASEMGMT ---
Social Work Met with pt to discuss DC plans. TCU has bed available for pt on 07/24, so pt DC plan is to DC to TCU on 07/24. Plan: DC 07/24 TCU, No DME needs Gabbi Black, social work event marketing intern Lexi Suresh, [employer] ASSEMBLER DRIP MOLDER
[2019-07-23 18:22] VITALS: BP 127/51; PULSE 63; RESP 16; TEMP 36.6; O2SAT 95
[2019-07-24] MEDS: Enoxaparin 40 MG/0.4 ML Syringe SC (06:07)
[2019-07-24] MEDS: Levothyroxine 75 MCG Tablet PO (06:07)
[2019-07-24] MEDS: Furosemide 40 MG Tablet PO ×2 (06:07→17:33)
[2019-07-24] MEDS: Acetaminophen 500 MG Tablet 1000 MG PO ×3 (06:07→22:21)
[2019-07-24 08:56] VITALS: BP 131/65; PULSE 68; RESP 12; TEMP 36.4; O2SAT 95
[2019-07-24 09:00] VITALS: BP 131/65; PULSE 68
[2019-07-24] MEDS: Metoprolol(XL)Succ 25 MG Tablet PO (09:00)
[2019-07-24] MEDS: Calcium Carb/Vitamin D 1 TABLET Tablet PO (09:00)
[2019-07-24] MEDS: Psyllium 1 PACKET PO (09:00)
[2019-07-24] MEDS: Multivitamins,Ther W-Minerals Tablet 1 TABLET PO (09:00)
[2019-07-24] MEDS: Menthol/Lanolin/Calamine/Znox 113 GM Tube 1 APPLIC TOPICAL ×2 (09:00→22:22)
[2019-07-24] MEDS: Nystatin Powder 15gm Bottle 1 APPLIC TOPICAL ×2 (09:01→22:22)
[2019-07-24 19:27] VITALS: BP 115/52; PULSE 75; RESP 18; TEMP 36.8; O2SAT 92
[2019-07-25] MEDS: Acetaminophen 500 MG Tablet 1000 MG PO ×2 (05:10→13:02)
[2019-07-25] MEDS: Levothyroxine 75 MCG Tablet PO (05:11)
[2019-07-25] MEDS: Enoxaparin 40 MG/0.4 ML Syringe SC (05:11)
[2019-07-25] MEDS: Furosemide 40 MG Tablet PO (05:11)
[2019-07-25 06:56] VITALS: BP 111/48; PULSE 60; RESP 20; TEMP 36.5; O2SAT 95
[2019-07-25] MEDS: Calcium Carb/Vitamin D 1 TABLET Tablet PO (08:19)
[2019-07-25] MEDS: Multivitamins,Ther W-Minerals Tablet 1 TABLET PO (08:19)
[2019-07-25] MEDS: Psyllium 1 PACKET PO (08:21)
[2019-07-25 08:22] VITALS: PULSE 60
[2019-07-25] MEDS: Metoprolol(XL)Succ 25 MG Tablet PO (08:22)
[2019-07-25] MEDS: Menthol/Lanolin/Calamine/Znox 113 GM Tube 1 APPLIC TOPICAL (08:45)
[2019-07-25] MEDS: Nystatin Powder 15gm Bottle 1 APPLIC TOPICAL (08:46)
--- NOTE | 2019-07-25 09:16 | TREXTCAR_ITS ---
- Diet 07/11/19 09:56 Diet: Regular Diet Is pt able to select menu?: Yes - Routine Orders/Code Status Enema Type: Fleetz Enema Frequency: Daily PRN Suppository Type: Dulcolax 10mg Suppository Frequency: Daily PRN O2 Liters per Minute: 1-2 O2 Frequency: PRN Keep PO Greater than or Equal to (%): 90 Routine Lab Work: - - CBC, BMP, MAG on 07/26/2019 Code Status: Full Code - Wound(s) L Ankle Wound Type: Surgical Incision - Therapies Weight Bearing: Non weight bearing Extremity Affected:: Left Lower Physical Therapy: Eval and Treat Occupational Therapy: Eval and Treat - Problem/Diagnosis (1) Status post ORIF of fracture of ankle Status: Acute Comment: Dr. De Luna on 07/09/19 Left ankle Current Visit: Yes (2) Ventricular ectopy Status: Chronic Current Visit: Yes (3) Acute medial meniscus tear of left knee Status: Resolved Current Visit: No (4) Aftercare following surgery of the musculoskeletal system, NEC Status: Acute Current Visit: No (5) Polio Status: Chronic Comment: when she was a child < 10 Current Visit: No (6) Closed fracture dislocation of left ankle joint Status: Acute Comment: due to a fall Current Visit: No (7) ANDRY (obstructive sleep apnea) Status: Chronic Comment: She is on BIPAP ....follows with Dr. Paul Current Visit: No (8) Grade I diastolic dysfunction Status: Chronic Current Visit: No (9) Physical debility Status: Acute Comment: due to closed L ankle fracture due to fall and non- weight bearing status following ORIF L ankle Current Visit: No (10) Secondary pulmonary arterial hypertension Status: Chronic Comment: Estimated PA systolic in April 2018 was 42 mmHg. 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 On the dorsum of the foot at the junction between the ankle and the leg Current Visit: Yes - Allergies/Procedures Done in Hospital Allergies/Adverse Reactions: Allergies aspirin Allergy (Verified 07/09/19 07:06) made my blood too thin hydrocodone [From Vicodin] Allergy (Verified 07/09/19 12:10) feels like getting high niacin Adverse Reaction (Verified 07/09/19 07:06) severe sweating simvastatin Adverse Reaction (Verified 07/09/19 07:06) muscle aches Procedures: None - Type of Care/Length of Stay Estimated LOS: Convalescent Care Less Than 30 days Type of Care Needed: Skilled Rehab Potential: Good Prognosis: Good - Additional Orders/Day of Discharge H&P will serve as current which was dated: 07/11/19 Day of Discharge: 07/25/19 - Dietary and Speech Recommendations Dietitian Recommendations/Changes: Continue regular diet. - Follow Up Care Primary Care Physician: Jimbo Koch III, MD [Primary Care Provider] - Please follow up with your Primary Care Physician in: Following discharge from nursing home Please Follow Up With: Ana Laura De Luna, Please Follow Up With: Dr. Paul When: as previously scheduled for ANDRY
--- NOTE | 2019-07-25 09:26 | DS.PCM_ITS ---
Discharge Date and Diagnosis - Problem List Patient Problems: Active and Suspected Problems (Last Reviewed 07/11/19 @ 10:[address] Cecille Brito DO) Status post ORIF of fracture of ankle (Acute) Dr. De Luna on 07/09/19 Left ankle Normochromic normocytic anemia (Acute) Likely due to blood loss from ORIF of left ankle fracture Decubitus ulcer of ankle, stage 2 (Acute) due to internal pressure from the fractured bone tenting the skin. On the dorsum of the foot at the junction between the ankle and the leg Date of Admission: 07/04/19 Date of Discharge: 07/25/19 - Primary Discharge Diagnosis Active and Suspected Problems (Last Reviewed 07/11/19 @ 10:[address] Cecille Brito DO) Status post ORIF of fracture of ankle (Acute) Dr. De Luna on 07/09/19 Left ankle Normochromic normocytic anemia (Acute) Likely due to blood loss from ORIF of left ankle fracture Decubitus ulcer of ankle, stage 2 (Acute) due to internal pressure from the fractured bone tenting the skin. On the dorsum of the foot at the junction between the ankle and the leg - Secondary Discharge Diagnosis Chronic Problems (Last Reviewed 07/11/19 @ 10:[address] 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 Paul Grade I diastolic dysfunction (Chronic) Secondary pulmonary arterial hypertension (Chronic) Estimated PA systolic in April 2018 was 42 mmHg. Chronic diastolic (congestive) heart failure (Chronic) Essential (primary) hypertension (Chronic) Non-rheumatic aortic stenosis (Chronic) AVR 05/06/12 History of aortic valve replacement with bioprosthetic valve (Chronic 05/06/12) AVR with #[facility] 05/06/12 Hospital Course and Treatment Imaging Results: Laboratory Tests 07/18/19 07/15/19 07/15/19 Range/Units 05:30 05:55 05:55 Hgb 11.7 L (12.0-15.0) g/dL Hct 37.5 (37-47) % Sodium 139 140 (136-145) mmol/L Potassium 3.8 3.7 (3.5-5.1) mmol/L Chloride 102 103 (98-107) mmol/L Carbon Dioxide 32.0 34.0 H (21.0-32.0) mmol/L Anion Gap 5 3 L (5-15) BUN 20 H 22 H (7-18) mg/dL Creatinine 0.82 0.89 (0.55-1.02) mg/dL Estim Creat Clear Calc 41.83 38.54 ml/min Est GFR (MDRD) Af Amer 86 78 (>60) mL/min Est GFR (MDRD) Non-Af 71 64 (>60) mL/min BUN/Creatinine Ratio 24.4 H 24.6 H (10-20) RATIO Glucose 91 92 (74-106) mg/dL Calcium 8.6 9.0 (8.5-10.1) mg/dL Magnesium 2.3 2.3 (1.6-2.6) mg/dL none Operations: None, - - closed reduction of left trimalleolar fracture with dislocation Procedures: None Summary of Care Provided: The patient is an 84 year old F with a past medical history of polio as a child, secondary pulmonary hypertension, chronic diastolic congestive heart failure, hypertension, nonrheumatic aortic stenosis with history of bioprosthetic aortic valve replacement on 05/06/2012, hypothyroidism, obstructive sleep apnea, benign paroxysmal positional vertigo, obesity, L diaphragmatic paralysis and a recent traumatic fracture of the left ankle due to a fall who was originally admitted to the rehab unit on 07/03/2019 for debility due to ankle fracture. She was discharged on 07/09/19 and went to surgery with Dr. De Luna for ORIF of the left ankle fracture. Following the surgery she was admitted to [facility] and placed on telemetry for 24 hours as recommended by cardiology. Overnight she had frequent PVC's with couplets and two 4 beat runs of non-sustained VT. She was asymptomatic. she has a normal EF. Vital signs were stable and the Potassium was normal at 4.2 with a mag of 2.4. She was then discharged from the acute hospital stay and readmitted to the rehab unit for continued therapy so that she can return home at or near her prior level of independence. She lives by herself and she has stairs to her basement and also 3 steps to get into the house. She will have at least 3 hours of therapy daily while in rehab and will be non-wt bearing on the LLE. She was independent with mobility, ADLs and driving prior to her fall. On 07/15/19 she complained of pain in the Left ankle laterally and she told me that she had many blisters at the time of surgery. Dr. De Luna's office was contacted and Sydney was seen on 07/16/19 by Vega MAYA. The dressing was taken down and I examined the leg with Patel. There was a stage 2 decubitus ulcer on the dorsum of the Left foot at the flexure between the foot and the tibia. There was no erythema, purulent DC or pain with palpation in the surrounding area. the other blisters had healed. The incision site was well coapted and there was no evidence of infection or acute inflammation. There was good approximation of the wound edges and she was neurovascularly intact. The splint was rubbing posteriorly because the edema was decreased. The splint was reapplied to the left lower extremity. She had no additional complaints for the duration her stay in rehab. Pain was well controlled on scheduled Tylenol and her last dose of Oxycodone was on 07/20/19. PT/OT were reinstituted when she came back to rehab. She will be non- weight bearing on the LLE for at least 6 weeks post operatively. She did very well in rehab however, she lives alone and is still not able to bear weight on the LLE and she is not safe to go home without someone being present to help her. She was transferred to TCU on 07/25/19 for continued therapy prior to returning home. She has an appt with Dr. De Luna on 08/19/2019 at 10:[address] De Luna was notified that Sydney will be transferred to TCU today and Patel will see her today. Alert, oriented x3, no apparent distress, sitting at the bedside in a chair. Lungs- She initially had coarse crackles in the R base but, these cleared completely after several deep breaths. BS's are diminished in the left base posteriorly but, this is chronic due to paralysis of the left hemidiaphragm. Heart-regular rate and rhythm, no gallop, MM 2/6 heard best at the second right intercostal space with radiation to the left ventricular outflow tract, lower left sternal border and the apex. Having occasional ectopic beats. Abdomen-soft, nontender, nondistended, obese, normal bowel sounds, no guarding with palpation Intact neurovascular bundle to both lower extremities. The toes on the left foot are significantly less swollen than at admission to the rehab unit MM are dry but she denies lightheadedness. BUN/CREAT ratio is always a little high due to the Lasix for diastolic dysfunction but she tolerates this without any symptoms of dehydration Cranial nerves II through XII are grossly intact. No focal neurologic deficits. This note was generated with [employer] dictation software. It may contain incorrect words, spelling, and punctuation that were not noted in checking the note before signing. Patient Problems: Active and Suspected Problems (Last Reviewed 07/11/19 @ 10:[address] Cecille Brito, DO) Status post ORIF of fracture of ankle (Acute) Dr. De Luna on 07/09/19 Left ankle Normochromic normocytic anemia (Acute) Likely due to blood loss from ORIF of left ankle fracture Decubitus ulcer of ankle, stage 2 (Acute) due to internal pressure from the fractured bone tenting the skin. On the dorsum of the foot at the junction between the ankle and the leg - Physical Exam Vitals/I&O's: Vital Signs Temp Pulse Resp BP Pulse Ox 97.7 F L 60 20 H 111/48 L 95 07/25/19 06:56 07/25/19 08:22 07/25/19 06:56 07/25/19 06:56 07/25/19 06:56 Oxygen Flow Rate (L/min) 92 Oxygen Delivery Method Room Air Weight: 172 lb 6.424 oz Body Mass Index (BMI) 33.3 Intake and Output for Last 24 Hours 07/23/19 07/24/19 07/25/19 23:59 23:59 23:59 Intake Total 1300 / 1300 240 / 240 360 / 360 Output Total 1750 / 1750 Balance -450 / -450 240 / 240 360 / 360 Current Medications Acetaminophen (Tylenol) 1,000 mg PO Q8 [facility] Last Admin: 07/25/19 05:10 Dose: 1,000 mg Documented by: Bisacodyl (Dulcolax) 10 mg RECTAL .PRN X 1 PRN PRN Reason: Constipation Calamine/Phenol (Calmoseptine Ointment) 1 applic TOPICAL BID [facility]; Protocol Last Admin: 07/25/19 08:45 Dose: 1 applicatio Documented by: Calcium/Vitamin D (Os-Mikael 500mg + D) 1 tablet PO DAILYCM [facility] Last Admin: 07/25/19 08:19 Dose: 1 tablet Documented by: Cholecalciferol (Vitamin D) 1,000 unit PO DAILY [facility] Last Admin: 07/25/19 08:22 Dose: 1,000 unit Documented by: Enoxaparin Sodium (Lovenox) 40 mg SC DAILY@0600 [facility] Last Admin: 07/25/19 05:11 Dose: 40 mg Documented by: Furosemide (Lasix) 40 mg PO BID@0600,1800 [facility] Last Admin: 07/25/19 05:11 Dose: 40 mg Documented by: Levothyroxine Sodium (Synthroid) 75 mcg PO DAILY@0600 [facility] Last Admin: 07/25/19 05:11 Dose: 75 mcg Documented by: Magnesium Hydroxide (Milk Of Magnesia) 30 ml PO .PRN X 1 PRN PRN Reason: Constipation Metoprolol Succinate (Toprol Xl (Beta Evelio)) 25 mg PO DAILY [facility] Last Admin: 07/25/19 08:22 Dose: 25 mg Documented by: Multivitamins/Minerals (Multivitamin With Minerals (Bkc)) 1 tablet PO DAILY@0800 [facility] Last Admin: 07/25/19 08:19 Dose: 1 tablet Documented by: Nystatin (Mycostatin Powder) 1 applic TOPICAL BID [facility]; Protocol Last Admin: 07/25/19 08:46 Dose: 1 applicatio Documented by: Oxycodone HCl (Oxyir) 5 mg PO Q4H PRN PRN PRN Reason: PAIN SCORE 1-10/10 Last Admin: 07/20/19 21:44 Dose: 5 mg Documented by: Potassium Chloride (K-Dur) 10 meq PO BID [facility] Last Admin: 07/25/19 08:21 Dose: 10 meq Documented by: Psyllium Hydrophilic Mucilloid (Metamucil) 1 packet PO DAILY [facility] Last Admin: 07/25/19 08:21 Dose: 1 packet Documented by: Senna/Docusate Sodium (Senokot-S, Treva-Colace) 2 tablet PO BID [facility] Last Admin: 07/25/19 08:22 Dose: Not Given Documented by: Home Medications: Medications to take at Discharge Calcium Carbonate/Vitamin D3 [Calcium 600-Vit D3 800 Tablet] 1 tab PO DAILY 06/30/19 Cholecalciferol (VIT D3) [Vitamin D3] 1,000 unit PO DAILY 06/30/19 Furosemide [Lasix] 40 mg PO BID 06/30/19 Levothyroxine [Synthroid] 75 mcg PO DAILY 06/30/19 Multivitamin with Minerals [One Daily Plus Minerals] 1 tab PO DAILY 06/30/19 [place]-3 Fatty Acids [Fish Oil] 2 tab PO DAILY 06/30/19 Potassium Chloride [K-Dur] 10 meq PO BID 06/30/19 Psyllium [Metamucil] 1 packet PO DAILY 06/30/19 Acetaminophen [Tylenol] 1,000 mg PO Q8 07/10/19 Enoxaparin Sodium [Lovenox] 40 mg SQ DAILY 07/10/19 Metoprolol Succinate 25 mg PO DAILY #0 07/10/19 Bisacodyl [Dulcolax] 10 mg RECTAL .PRN X 1 PRN suppos. 07/25/19 Magnesium Hydroxide [Milk Of Magnesia] 30 ml PO .PRN X 1 PRN udc 07/25/19 Menthol/Lanolin/Calamine/Znox [Calmoseptine Ointment] 1 applic TOPICAL BID tube 07/25/19 Nystatin Powder [Mycostatin Powder] 1 applic TOPICAL BID bottle 07/25/19 Senna/Docusate Sodium [Senokot-S] 2 tab PO BID tab 07/25/19 Primary Care Physician: Jimbo Koch III, MD [Primary Care Provider] - Please follow up with your Primary Care Physician in: Following discharge from [facility] Please Follow Up With: Ana Laura De Luna DO Please Follow Up With: Dr. Paul When: as previously scheduled for ANDRY Disposition: Care Home facility - TCU Minutes spent on discharge:: 35 Patient Condition:: Good Medical Necessity - Tobacco Use Smoking Status: Never smoker Tobacco Use: Non-smoker Meaningful Use Info Meaningful Use Diagnoses (Choose all that apply): None applicable Inpatient E&M: 98221 Disch Hosp
--- NOTE | 2019-07-25 10:57 | PCM.PN.ORT ---
Patient Problems: Active and Suspected Problems (Last Reviewed 07/11/19 @ 10:[address] Cecille Brito, DO) Status post ORIF of fracture of ankle (Acute) Dr. De Luna on 07/09/19 Left ankle Normochromic normocytic anemia (Acute) Likely due to blood loss from ORIF of left ankle fracture Decubitus ulcer of ankle, stage 2 (Acute) due to internal pressure from the fractured bone tenting the skin. On the dorsum of the foot at the junction between the ankle and the leg Subjective: Patient states that she is doing very well at this time. She states that she has not been having any pains in the leg (incision site or where the splint was previously rubbing). She has been sleeping well and has been doing well in therapy. She denies, pain, swelling, numbness, tingling, calf pains/tenderness, or other symptoms. Objective: Patient is seated up in her chair upon entering her room. She is alert and oriented x 3 and is pleasant and conversive. Inspection of the leg shows no major swelling of the leg or around the incision. The incision site shows good approximation of wound edges without any surrounding erythema, discharge, warmth, or other signs of infection. There is some scabbing noted along the incision site primarily on the mid portion of the incision which is where her largest blister was located (incision made through this blistered area). This really is expected healing here with the depth of blistering prior to surgery. She states that it is a little uncomfortable on palpation around the incision but she states that it isn't painful. She does not have any calf tenderness at this time and has a negative Homans. She has normal sensation throughout the extremity and she has 2+ pedal pulses. She has intact motor function of the ankle/foot/toes. - Physical Exam Vitals/I&O's: Vital Signs Temp Pulse Resp BP Pulse Ox 97.7 F L 60 20 H 111/48 L 95 07/25/19 06:56 07/25/19 08:22 07/25/19 06:56 07/25/19 06:56 07/25/19 06:56 Oxygen Flow Rate (L/min) 92 Oxygen Delivery Method Room Air Weight: 172 lb 6.424 oz Body Mass Index (BMI) 33.3 Intake and Output for Last 24 Hours 07/23/19 07/24/19 07/25/19 23:59 23:59 23:59 Intake Total 1300 / 1300 240 / 240 360 / 360 Output Total 1750 / 1750 Balance -450 / -450 240 / 240 360 / 360 General: Alert, Oriented x3, Cooperative, No apparent distress, Well developed, Well nourished Oral: Moist Mucosa Lungs: Normal air movement - normal breathing without any signs of distress Skin: Ulcer/ Wound - the anterior blister still has some superficial open area although is very close to healing completely. the other blisters have all healed over., Incision - See objective description above Psych/Mental Status: Normal Affect, Alert and oriented to time, place, person, mood and affect Current Medications Acetaminophen (Tylenol) 1,000 mg PO Q8 [facility] Last Admin: 07/25/19 05:10 Dose: 1,000 mg Documented by: Bisacodyl (Dulcolax) 10 mg RECTAL .PRN X 1 PRN PRN Reason: Constipation Calamine/Phenol (Calmoseptine Ointment) 1 applic TOPICAL BID [facility]; Protocol Last Admin: 07/25/19 08:45 Dose: 1 applicatio Documented by: Calcium/Vitamin D (Os-Mikael 500mg + D) [facility] Admin: 07/25/19 08:19 Dose: 1 tablet Documented by: Cholecalciferol (Vitamin D) 1,000 unit PO DAILY [facility] Last Admin: 07/25/19 08:22 Dose: 1,000 unit Documented by: Enoxaparin Sodium (Lovenox) 40 mg SC DAILY@0600 [facility] Last Admin: 07/25/19 05:11 Dose: 40 mg Documented by: Furosemide (Lasix) 40 mg PO BID@0600,1800 [facility] Last Admin: 07/25/19 05:11 Dose: 40 mg Documented by: Levothyroxine Sodium (Synthroid) 75 mcg PO DAILY@0600 [facility] Last Admin: 07/25/19 05:11 Dose: 75 mcg Documented by: Magnesium Hydroxide (Milk Of Magnesia) 30 ml PO .PRN X 1 PRN PRN Reason: Constipation Metoprolol Succinate (Toprol Xl (Beta Evelio)) 25 mg PO DAILY [facility] Last Admin: 07/25/19 08:22 Dose: 25 mg Documented by: Multivitamins/Minerals (Multivitamin With Minerals (Bkc)) 1 tablet PO DAILY@0800 [facility] Last Admin: 07/25/19 08:19 Dose: 1 tablet Documented by: Nystatin (Mycostatin Powder) 1 applic TOPICAL BID [facility]; Protocol Last Admin: 07/25/19 08:46 Dose: 1 applicatio Documented by: Oxycodone HCl (Oxyir) 5 mg PO Q4H PRN PRN PRN Reason: PAIN SCORE 1-1010 Last Admin: 07/20/19 21:44 Dose: 5 mg Documented by: Potassium Chloride (K-Dur) 10 meq PO BID [facility] Last Admin: 07/25/19 08:21 Dose: 10 meq Documented by: Psyllium Hydrophilic Mucilloid (Metamucil) 1 packet PO DAILY [facility] Last Admin: 07/25/19 08:21 Dose: 1 packet Documented by: Senna/Docusate Sodium (Senokot-S, Treva-Colace) 2 tablet PO BID [facility] Last Admin: 07/25/19 08:22 Dose: Not Given Documented by: Medical Necessity - Tobacco Use Smoking Status: Never smoker Tobacco Use: Non-smoker Assessment/Plan All Active Problems (Last Reviewed 07/11/19 @ 10:[address] Cecille Brito, ) Status post ORIF of fracture of ankle (Acute) Normochromic normocytic anemia (Acute) Decubitus ulcer of ankle, stage 2 (Acute) Aftercare following surgery of the musculoskeletal system, NEC (Acute) Closed fracture dislocation of left ankle joint (Acute) Physical debility (Acute) Acute medial meniscus tear of left knee (Resolved) PAtient seen today prior to transfer down to long care / TCU. Patient is doing extremely well at this time. She is comfortable having no pains at this time. She has been going to PT and OT and states that she has been doing well there. Her dressing and splint were taken down today and the incision site is healing well without good approximation and no signs of infection. She does have some scabbing with some necrotic superficial skin as the incision did intersect a large blistered area. This is closed and healing well though. Order was placed to have sutures removed today. She has minimal discomfort on palpation around the incision site. She is neurovascularly intact without any signs of DVT. At this time patient is going to be placed in a tall pneumatic walking boot before transfer. She is to continue to be non-weightbearing in the boot at the same time can begin to do some passive and active ROM of the ankle outside of the boot during PT/OT. Would continue icing and elevating when able to and would continue with TALON hose / compression hose. Can use some adaptic over the anterior blistered area and the incision at the same time can change this every 1-2 days and discontinue when healed. Patient to continue current medical management and notify of any concerns or complaints in the mean time.
== END 2019-07-25 13:58 | disposition skilled nursing facility (03) | DRG 560 ==
PROVIDERS: Admitting Provider Internal Medicine; PCP Family Medicine; Referring Provider Internal Medicine; Visit Provider Internal Medicine
DX: S82.852D Displaced trimalleolar fracture of left lower leg, subsequent encounter for closed fracture with routine healing (principal); I50.32 Chronic diastolic (congestive) heart failure; W19.XXXD Unspecified fall, subsequent encounter; L89.502 Pressure ulcer of unspecified ankle, stage 2; I11.0 Hypertensive heart disease with heart failure; I27.29 Other secondary pulmonary hypertension; G47.33 Obstructive sleep apnea (adult) (pediatric); E03.9 Hypothyroidism, unspecified; E66.9 Obesity, unspecified; D64.9 Anemia, unspecified; Z68.31 Body mass index [BMI] 31.0-31.9, adult; J98.6 Disorders of diaphragm; Z95.3 Presence of xenogenic heart valve; Z86.12 Personal history of poliomyelitis
CPT/HCPCS: 36415; 80048; 83735; 85014; 85018; 97110; 97116; 97162; 97166; 97530; 97535; 97542; 97802

== ENCOUNTER 2019-07-25 13:59 | Inpatient (IN) | payer MEDICARE, OTHER, SELFPAY ==
[2019-07-25 14:14] VITALS: BP 118/70; PULSE 79; RESP 14; TEMP 37.1; O2SAT 93; BMI 31.4; BMI 31.5
--- NOTE | 2019-07-25 15:07 | PCM.HP.STD ---
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 Paul (13) Chronic diastolic (congestive) heart failure Status: Chronic History of Present Illness Date of Admission: 07/25/19 Chief Complaint: Here for rehabilitation, strengthening, prior to discharge home alone. The patient is a 84 year old Female with below past medical history with followin06/30/2019 Fall, left ankle fracture. 07/09/2019 Dr. De Luna performed ORIF left ankle fracture. 07/10/2019 Admit to Inpatient rehabilitation for therapy. 07/16/2019 Left lateral ankle pain, stage 2 pressure ulcer dorsum left foot. Non weight bearing left lower extremity minimum 6 weeks postoperatively. 07/25/2019 Admit to TCU with debility, here for rehabilitation, strengthening, prior to discharge home alone. Past Medical History Past Medical History (Chronic Problems): Chronic Problems (Last Reviewed 07/11/19 @ 10:[address] 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 Paul Grade I diastolic dysfunction (Chronic) Secondary pulmonary arterial hypertension (Chronic) Estimated PA systolic in April 2018 was 42 mmHg. 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 Cecille Brito DO) Secondary pulmonary arterial hypertension (Chronic) I27.21 Estimated PA systolic in April 2018 was 42 mmHg. Chronic diastolic (congestive) heart failure (Chronic) I50.32 Essential (primary) hypertension (Chronic) I10 Non-rheumatic aortic stenosis (Chronic) I35.0 AVR 05/06/12 Hypothyroidism E03.9 Obesity E66.9 Obstructive sleep apnea G47.33 Vertigo R42 Allergies aspirin Allergy (Verified 07/09/19 07:06) made my blood too thin hydrocodone [From Vicodin] Allergy (Verified 07/09/19 12:10) feels like getting high niacin Adverse Reaction (Verified 07/09/19 07:06) severe sweating simvastatin Adverse Reaction (Verified 07/09/19 07:06) muscle aches Home Medications: Ambulatory Orders Medication Instructions Recorded Calcium Carbonate/Vitamin D3 1 tab PO DAILY 06/30/19 [Calcium 600-Vit D3 800 Tablet] Cholecalciferol (VIT D3) [Vitamin 1,000 unit PO DAILY 06/30/19 D3] Furosemide [Lasix] 40 mg PO BID 06/30/19 Levothyroxine [Synthroid] 75 mcg PO DAILY 06/30/19 Multivitamin with Minerals [One 1 tab PO DAILY 06/30/19 Daily Plus Minerals] [place]-3 Fatty Acids [Fish Oil] 2 tab PO DAILY 06/30/19 Potassium Chloride [K-Dur] 10 meq PO BID 06/30/19 Psyllium [Metamucil] 1 packet PO DAILY 06/30/19 Acetaminophen [Tylenol] 1,000 mg PO Q8 07/10/19 Enoxaparin Sodium [Lovenox] 40 mg SQ DAILY 07/10/19 Metoprolol Succinate 25 mg PO DAILY #0 07/10/19 Bisacodyl [Dulcolax] 10 mg RECTAL .PRN X 1 PRN suppos. 07/25/19 Magnesium Hydroxide [Milk Of 30 ml PO .PRN X 1 PRN udc 07/25/19 Magnesia] Menthol/Lanolin/Calamine/Znox 1 applic TOPICAL BID 07/25/19 [Calmoseptine Ointment] Nystatin Powder [Mycostatin Powder] 1 applic TOPICAL BID 07/25/19 Senna/Docusate Sodium [Senokot-S] 2 tab PO BID 07/25/19 Surgical History: Surgical History (Last Reviewed 07/11/19 @ 10:[address] Cecille Brito DO) History of aortic valve replacement with bioprosthetic valve (Chronic) Onset Date: 05/06/12 Z95.4 AVR with #[facility] 05/06/12 History of parathyroidectomy Z98.890 History of right and left heart catheterization Onset Date: 09/01/11 Z98.890 History of tonsillectomy and adenoidectomy Z98.890 Hx of cholecystectomy Z90.49 H/O breast biopsy (Inactive) Z98.890 H/O colonoscopy (Inactive) Z98.890 Surgical History: adenoidectomy, cholecystectomy, tonsillectomy, - - AVR on 05/06/12, ORIF of left ankle fracture 07/09/19, parathyroidectomy, breast biopsy, colonoscopy, right and left heart catheterization on 09/01/2011 Psychiatric History: Anxiety, Depression NON DESTRUCTIVE EVALUATION SPECIALIST History: No pertinent NON DESTRUCTIVE EVALUATION SPECIALIST history Lives: Alone Smoking Status: Never smoker Tobacco Use: Non-smoker Alcohol: None Drugs: None - *Family History Maternal Family History: Family History (Last Reviewed 07/11/19 @ 10:[address] Cecille Brito DO) Father Dementia Mother Liver cirrhosis Sister Aortic valve disease Brother Dementia History Items: No pertinent history Paternal Family History: Family History (Last Reviewed 07/11/19 @ 10:[address] Cecille Brito DO) Father Dementia Mother Liver cirrhosis Sister Aortic valve disease Brother Dementia History Items: No pertinent history Review of Systems Constitutional: Denies: Chills, Fever, Weight Change HEENT: Denies: Head Aches, Sinus Congestion, Sinus Drainage Cardiovascular: Denies: Chest Pain, Palpitations Respiratory: Denies: Cough, Shortness of breath at rest, Sputum production Gastrointestinal: Denies: Abdominal Pain, Nausea, Vomiting Genitourinary: Denies: Dysuria Musculoskeletal: Denies: Joint Pain, Joint Tenderness Skin: Denies: Rash, Wounds Neurological: Denies: Numbness, Tingling, Focal weakness Psychiatric: Denies: Anxiety, Depression, Homicidal Ideations, Suicidal Ideations Hematologic/ Lymphatic: Denies: Easy Bruising, Easy Bleeding VTE Information - Inpt Only VTE Present on Admission: No VTE Mechan Device Prophylaxis: Knee High TALON Hose VTE Pharm Prophylaxis ordered?: Yes Patient Problems: Active and Suspected Problems (Last Reviewed 07/11/19 @ 10:[address] Cecille Brito DO) Debility (Acute) Closed left ankle fracture (Acute) Hypokalemia (Acute) - Physical Exam Vitals/I&O's: Vital Signs Temp Pulse Resp BP Pulse Ox 98.7 F 79 14 118/70 93 07/25/19 14:14 07/25/19 14:14 07/25/19 14:14 07/25/19 14:14 07/25/19 14:14 Oxygen Delivery Method Room Air Weight: 78.041 kg Body Mass Index (BMI) 31.4 General: Alert, Oriented x3, Cooperative HEENT: Atraumatic, PERRLA, EOMI, Normocephalic Neck: Supple, No JVD, Negative Carotid Bruits Lungs: Clear to auscultation, Normal air movement Cardiovascular: Regular rate, No murmurs Abdomen: Bowel Sounds Present, Soft, Non Tender Extremities: No edema, Capillary Refill Less than 3 Seconds, - - Left ankle dressed. Skin: No rashes, No breakdown Musculoskeletal: No Tenderness to Palpation of Joints or Extremities Neurological: Cranial nerves II-XII grossly intact Psych/Mental Status: Normal Affect, Appropriate Current Medications Tuberculin PPD (Tubersol, Aplisol, Ppd) 5 tu ID X1 ONE Stop: 07/26/19 10:01 Tuberculin PPD (Tubersol, Aplisol, Ppd) 5 tu ID X1 ONE Stop: 08/02/19 10:01 Assessment/Plan All Active Problems (Last Reviewed 07/11/19 @ 10:[address] Cecille Birto DO) Status post ORIF of fracture of ankle (Acute) Normochromic normocytic anemia (Acute) Decubitus ulcer of ankle, stage 2 (Acute) Debility (Acute) Closed left ankle fracture (Acute) Hypokalemia (Acute) Aftercare following surgery of the musculoskeletal system, NEC (Acute) Closed fracture dislocation of left ankle joint (Acute) Physical debility (Acute) Acute medial meniscus tear of left knee (Resolved) 84 year old female with below past medical history hospitalized left ankle fracture, underwent ORIF left ankle fracture 07/09/2019 per , admitted to Inpatient Rehabilitation 07/10/2019, transferred to TCU with debility, here for rehabilitation, strengthening, prior to discharge home alone. Debility - PT/OT. Pain - Tylenol 1000MG Q8H. Bowel - Miralax 17GM daily, Senna/colace 2 tablets BID, Dulcolax 10MG daily PRN. Adult immunization - Administer Prevnar 13, Pneumovax 23, Fluzone as appropriate. DVT prophylaxis - Lovenox 40MG SC daily. Calcium deficiency - Calcium D 600/800IU daily. Vitamin D deficiency - D3 1000IU daily. Edema - Lasix 40MG twice daily. Hypothyroidism - Levothyroxine 75MCG daily. Hypokalemia - K-Dur 10MEQ twice daily. Hypertension - Metoprolol succinate 25MG daily. Skin irritation - Calmoseptine BID. Tinea Corporis - Nystatin powder BID.
[2019-07-25] MEDS: Furosemide 40 MG Tablet PO (18:11)
[2019-07-25] MEDS: Acetaminophen 500 MG Tablet 1000 MG PO (21:27)
[2019-07-26 06:33] VITALS: BP 116/69; PULSE 77
[2019-07-26] MEDS: Acetaminophen 500 MG Tablet 1000 MG PO ×3 (06:33→20:47)
[2019-07-26] MEDS: Metoprolol(XL)Succ 25 MG Tablet PO (06:33)
[2019-07-26] MEDS: Polyethylene Glycol 3350 17 GM PACKET PO (06:33)
[2019-07-26] MEDS: Levothyroxine 75 MCG Tablet PO (06:33)
[2019-07-26] MEDS: Enoxaparin 40 MG/0.4 ML Syringe SC (06:33)
[2019-07-26] MEDS: Menthol/Lanolin/Calamine/Znox 113 GM Tube 1 APPLIC TOPICAL ×2 (06:41→17:29)
[2019-07-26] MEDS: Nystatin Powder 15gm Bottle 1 APPLIC TOPICAL ×2 (06:51→17:28)
[2019-07-26 07:42] LABS: Absolute Lymphocyte Count 1.63 X10^3/uL (0.83-4.51); Absolute Neutrophil Count 3.3 X10^3/uL (2.0-7.7); Basophil# 0.05 X10^3/uL; Basophil% 0.9 % (0-1); Eosinophils% 3.5 % (0-5); Hematocrit 38.4 % (37-47); Hemoglobin 11.6 g/dL (12.0-15.0); Lymphocyte # 1.63 X10^3/ul (4.0); Lymphocyte % 28.2 % (19-41); Mean Corp Hgb Conc 30.2 g/dL (32-36); Mean Corpuscular Volume 102.7 fL (81-99); Mean Platelet Vol. 9.9 fl (6.2-12.0); Monocyte# 0.58 X10^3/uL; NRBC Flagged by Analyzer 0 % (0-5); Neutrophil % 57.1 % (47-70); Platelet Count 260 K/mm3 (150-450); RBC Distribution Width CV 14.6 % (11.6-14.6); RBC Distribution Width SD 54.5 fl (35.1-43.9); Red Blood Count 3.74 M/mm3 (4.2-5.4); White Blood Count 5.8 K/mm3 (4.4-11.0)
[2019-07-26 08:00] LABS: Anion Gap 4 (5-15); BUN 19 mg/dL (7-18); BUN/Creat Ratio 22.8 RATIO (10-20); Calcium,Total 8.9 mg/dL (8.5-10.1); Chloride 102 mmol/L (98-107); Creatinine, Serum 0.83 mg/dL (0.55-1.02); EST Glomerular Filtration Rate 70 mL/min (>60); Est Glom Filt Rate - Afr Amer 84 mL/min (>60); Estimated Creatinine Clearance 41.33 ml/min; Glucose 95 mg/dL (74-106); Magnesium 2.3 mg/dL (1.6-2.6); Potassium 4.1 mmol/L (3.5-5.1); Sodium Level 140 mmol/L (136-145)
[2019-07-26] MEDS: Calcium Carb/Vitamin D 1 TABLET Tablet PO (08:03)
[2019-07-26] MEDS: Tuberculin,Purif.prot.deriv. 50 TU/ML Vial 5 ML ID (11:20)
[2019-07-26] MEDS: Furosemide 40 MG Tablet PO ×2 (11:20→17:27)
[2019-07-26 14:28] VITALS: BP 125/43; PULSE 76; RESP 16; TEMP 36.9; O2SAT 92
[2019-07-27 05:36] VITALS: BP 128/65; PULSE 67
[2019-07-27] MEDS: Enoxaparin 40 MG/0.4 ML Syringe SC (05:36)
[2019-07-27] MEDS: Polyethylene Glycol 3350 17 GM PACKET PO (05:36)
[2019-07-27] MEDS: Levothyroxine 75 MCG Tablet PO (05:36)
[2019-07-27] MEDS: Metoprolol(XL)Succ 25 MG Tablet PO (05:36)
[2019-07-27] MEDS: Acetaminophen 500 MG Tablet 1000 MG PO ×3 (05:36→20:09)
[2019-07-27] MEDS: Menthol/Lanolin/Calamine/Znox 113 GM Tube 1 APPLIC TOPICAL ×2 (05:46→17:19)
[2019-07-27] MEDS: Nystatin Powder 15gm Bottle 1 APPLIC TOPICAL ×2 (05:46→17:20)
[2019-07-27] MEDS: Calcium Carb/Vitamin D 1 TABLET Tablet PO (07:36)
[2019-07-27 08:48] VITALS: PULSE 82; RESP 14; O2SAT 97
[2019-07-27] MEDS: Furosemide 40 MG Tablet PO ×2 (10:54→17:18)
[2019-07-27 13:12] VITALS: BP 118/54; PULSE 77; RESP 18; TEMP 36.8; O2SAT 96
[2019-07-28] MEDS: Enoxaparin 40 MG/0.4 ML Syringe SC (05:32)
[2019-07-28] MEDS: Levothyroxine 75 MCG Tablet PO (05:33)
[2019-07-28] MEDS: Polyethylene Glycol 3350 17 GM PACKET PO (05:33)
[2019-07-28] MEDS: Acetaminophen 500 MG Tablet 1000 MG PO ×3 (05:33→20:40)
[2019-07-28 05:34] VITALS: BP 114/60; PULSE 64
[2019-07-28] MEDS: Nystatin Powder 15gm Bottle 1 APPLIC TOPICAL ×2 (05:34→20:41)
[2019-07-28] MEDS: Menthol/Lanolin/Calamine/Znox 113 GM Tube 1 APPLIC TOPICAL ×3 (05:34→20:40)
[2019-07-28] MEDS: Metoprolol(XL)Succ 25 MG Tablet PO (05:34)
[2019-07-28] MEDS: Furosemide 40 MG Tablet PO ×2 (07:53→17:05)
[2019-07-28] MEDS: Calcium Carb/Vitamin D 1 TABLET Tablet PO (07:53)
[2019-07-28 13:31] VITALS: BP 121/51; PULSE 73; RESP 18; TEMP 36.7; O2SAT 92
--- NOTE | 2019-07-28 14:17 | PCM.PN.RX ---
<Sallie Albert M - Last Filed: 07/28/19 14:27> Progress Note - Pharmacy Subjective: TCU ADMISSION Objective: Allergies aspirin Allergy (Verified 07/09/19 07:06) made my blood too thin hydrocodone [From Vicodin] Allergy (Verified 07/09/19 12:10) feels like getting high niacin Adverse Reaction (Verified 07/09/19 07:06) severe sweating simvastatin Adverse Reaction (Verified 07/09/19 07:06) muscle aches Current Medications Generic Name Dose Route Start Last Admin Trade Name Freq PRN Reason Stop Dose Admin Acetaminophen 1,000 mg 07/25/19 22:00 07/28/19 13:06 Tylenol PO 1,000 mg Q8 [facility]UL Administration Bisacodyl 10 mg 07/25/19 15:59 Dulcolax PO DAILY PRN Constipation Calamine/Phenol 1 applic 07/25/19 18:00 07/28/19 05:34 Calmoseptine Ointment TOPICAL 1 applicatio BID [facility]UL Administration Protocol Calcium/Vitamin D 1 tablet 07/26/19 08:00 07/28/19 07:53 Os-Mikael 500mg + D PO 1 tablet DAILY@0800 [facility] Administration Cholecalciferol 1,000 unit 07/26/19 06:00 07/28/19 05:33 Vitamin D (25mcg) PO 1,000 unit DAILY [facility] Administration Enoxaparin Sodium 40 mg 07/26/19 06:00 07/28/19 05:32 Lovenox SC 40 mg DAILY@0600 [facility] Administration Furosemide 40 mg 07/25/19 18:00 07/28/19 07:53 Lasix PO 40 mg BID@1000,1800 [facility] Administration Levothyroxine Sodium 75 mcg 07/26/19 06:00 07/28/19 05:33 Synthroid PO 75 mcg DAILY@0600 [facility] Administration Metoprolol Succinate 25 mg 07/26/19 06:00 07/28/19 05:34 Toprol Xl (Beta Evelio) PO 25 mg DAILY [facility] Administration Nystatin 1 applic 07/25/19 18:00 07/28/19 05:34 Mycostatin Powder TOPICAL 1 applicatio BID [facility] Administration Protocol Polyethylene Glycol 17 gm 07/26/19 06:00 07/28/19 05:33 Miralax PO 17 gm DAILY [facility] Administration Potassium Chloride 10 meq 07/25/19 17:00 07/28/19 07:53 K-Dur PO 10 meq BIDCM [facility] Administration Senna/Docusate Sodium 2 tablet 07/25/19 18:00 07/28/19 05:34 Senokot-S, Treva-Colace PO Not Given BID [facility] Tuberculin PPD 5 tu 08/02/19 10:00 Tubersol, Aplisol, Ppd ID 08/02/19 10:01 X1 ONE Problem List (Last Reviewed 07/11/19 @ 10:[address] Cecille Brito, DO) Debility (Acute) Closed left ankle fracture (Acute) Pulmonary hypertension (Chronic) Hypertension (Chronic) Aortic stenosis (Chronic) Anemia (Chronic) Edema (Chronic) Hypothyroidism (Chronic) Hypokalemia (Acute) Vital Signs Temp Pulse Resp BP Pulse Ox 98.1 F 73 18 121/51 H 92 07/28/19 13:31 07/28/19 13:31 07/28/19 13:31 07/28/19 13:31 07/28/19 13:31 Oxygen Delivery Method Room Air Weight: 78.109 kg Body Mass Index (BMI) 31.4 Sodium 140 mmol/L (136-145) 07/26/19 07:14 Potassium 4.1 mmol/L (3.5-5.1) 07/26/19 07:14 Chloride 102 mmol/L (98-107) 07/26/19 07:14 Carbon Dioxide 34.0 mmol/L (21.0-32.0) H 07/26/19 07:14 Anion Gap 4 (5-15) L 07/26/19 07:14 BUN 19 mg/dL (7-18) H 07/26/19 07:14 Creatinine 0.83 mg/dL (0.55-1.02) 07/26/19 07:14 Est GFR (MDRD) Af Amer 84 mL/min (>60) 07/26/19 07:14 Est GFR (MDRD) Non-Af 70 mL/min (>60) 07/26/19 07:14 BUN/Creatinine Ratio 22.8 RATIO (10-20) H 07/26/19 07:14 Glucose 95 mg/dL (74-106) 07/26/19 07:14 Assessment/Plan: 1. Pain: Tylenol 1,000mg PO Q8h. Please continue to monitor for increased/decreased pain, medication effectiveness. 2. DVT Prophylaxis: Lovenox 40mg SC Daily. Please continue to monitor for S/S bleeding, renal function (Last CrCl = 40ml/min on 07/26/19). 3. CHF: Toprol XL 25mg PO Daily, Lasix 40mg PO BID, K-Dur 10mEq PO BID. Please continue to monitor BP, pulse, electrolytes (K = 3.7 on 07/26/19), fluid status. 4. Hypothyroidism: Synthroid 75 mcg PO daily. Please continue to monitor for S/S hyper/hypothyroidism, check thyroid panels as clinically indicated. 5. General Wellness: Os-Mikael +D 1 tab PO Daily, Vitamin D 1,000 unit PO Daily. Please continue to monitor as clinically appropriate. Psychotropic Medications: None Unnecessary Medications: None Bowel Regimen: Senna/Docusate 2 tab PO BID, Miralax 17g PO Daily, Bisacodyl 10mg PO daily PRN. Please continue to monitor for increased/decreased constipation/diarrhea. Date of Note:: 07/28/19 - Provider Comments Provider responsibility: Provider responsible to enter orders to implement recommendations <Julio César Thapa Chi - Last Filed: 07/28/19 17:20> Progress Note - Pharmacy Subjective: [] Objective: Allergies aspirin Allergy (Verified 07/09/19 07:06) made my blood too thin hydrocodone [From Vicodin] Allergy (Verified 07/09/19 12:10) feels like getting high niacin Adverse Reaction (Verified 07/09/19 07:06) severe sweating simvastatin Adverse Reaction (Verified 07/09/19 07:06) muscle aches Current Medications Generic Name Dose Route Start Last Admin Trade Name Freq PRN Reason Stop Dose Admin Acetaminophen 1,000 mg 07/25/19 22:00 07/28/19 13:06 Tylenol PO 1,000 mg Q8 [facility] Administration Bisacodyl 10 mg 07/25/19 15:59 Dulcolax PO DAILY PRN Constipation Calamine/Phenol 1 applic 07/28/19 22:00 Calmoseptine Ointment TOPICAL 0600,2200 [facility] Protocol Calcium/Vitamin D 1 tablet 07/26/19 08:00 07/28/19 07:53 Os-Mikael 500mg + D PO 1 tablet DAILY@0800 [facility]UL Administration Cholecalciferol 1,000 unit 07/26/19 06:00 07/28/19 05:33 Vitamin D (25mcg) PO 1,000 unit DAILY [facility] Administration Enoxaparin Sodium 40 mg 07/26/19 06:00 07/28/19 05:32 Lovenox SC 40 mg DAILY@0600 [facility]UL Administration Furosemide 40 mg 07/29/19 06:00 Lasix PO 0600,1400 [facility] Levothyroxine Sodium 75 mcg 07/26/19 06:00 07/28/19 05:33 Synthroid PO 75 mcg DAILY@0600 [facility] Administration Metoprolol Succinate 25 mg 07/26/19 06:00 07/28/19 05:34 Toprol Xl (Beta Evelio) PO 25 mg DAILY [facility] Administration Nystatin 1 applic 07/28/19 22:00 Mycostatin Powder TOPICAL 0600,2200 [facility] Protocol Polyethylene Glycol 17 gm 07/26/19 06:00 07/28/19 05:33 Miralax PO 17 gm DAILY [facility] Administration Potassium Chloride 10 meq 07/25/19 17:00 07/28/19 17:05 K-Dur PO 10 meq BIDCM [facility] Administration Senna/Docusate Sodium 2 tablet 07/25/19 18:00 07/28/19 17:04 Senokot-S, Treva-Colace PO Not Given BID [facility] Tuberculin PPD 5 tu 08/02/19 10:00 Tubersol, Aplisol, Ppd ID 08/02/19 10:01 X1 ONE Problem List (Last Reviewed 07/11/19 @ 10:[address] Cecille Brito, DO) Debility (Acute) Closed left ankle fracture (Acute) Pulmonary hypertension (Chronic) Hypertension (Chronic) Aortic stenosis (Chronic) Anemia (Chronic) Edema (Chronic) Hypothyroidism (Chronic) Hypokalemia (Acute) Vital Signs Temp Pulse Resp BP Pulse Ox 98.1 F 73 18 121/51 H 92 07/28/19 13:31 07/28/19 13:31 07/28/19 13:31 07/28/19 13:31 07/28/19 13:31 Oxygen Delivery Method Room Air Weight: 78.109 kg Body Mass Index (BMI) 31.4 Sodium 140 mmol/L (136-145) 07/26/19 07:14 Potassium 4.1 mmol/L (3.5-5.1) 07/26/19 07:14 Chloride 102 mmol/L (98-107) 07/26/19 07:14 Carbon Dioxide 34.0 mmol/L (21.0-32.0) H 07/26/19 07:14 Anion Gap 4 (5-15) L 07/26/19 07:14 BUN 19 mg/dL (7-18) H 07/26/19 07:14 Creatinine 0.83 mg/dL (0.55-1.02) 07/26/19 07:14 Est GFR (MDRD) Af Amer 84 mL/min (>60) 07/26/19 07:14 Est GFR (MDRD) Non-Af 70 mL/min (>60) 07/26/19 07:14 BUN/Creatinine Ratio 22.8 RATIO (10-20) H 07/26/19 07:14 Glucose 95 mg/dL (74-106) 07/26/19 07:14 Assessment/Plan: Psychotropic Medications: Unnecessary Medications: Bowel Regimen: - Provider Comments Provider responsibility: Provider responsible to enter orders to implement recommendations Provider Comments to Recommendations by Pharmacy: Agree
[2019-07-28 20:50] VITALS: BP 130/42; PULSE 80; RESP 16; TEMP 36.7; O2SAT 93
[2019-07-29] MEDS: Polyethylene Glycol 3350 17 GM PACKET PO (05:27)
[2019-07-29] MEDS: Menthol/Lanolin/Calamine/Znox 113 GM Tube 1 APPLIC TOPICAL ×2 (05:27→19:50)
[2019-07-29] MEDS: Levothyroxine 75 MCG Tablet PO (05:28)
[2019-07-29] MEDS: Enoxaparin 40 MG/0.4 ML Syringe SC (05:28)
[2019-07-29] MEDS: Nystatin Powder 15gm Bottle 1 APPLIC TOPICAL ×2 (05:29→19:51)
[2019-07-29 05:30] VITALS: BP 125/41; PULSE 69
[2019-07-29] MEDS: Furosemide 40 MG Tablet PO ×2 (05:30→13:19)
[2019-07-29] MEDS: Metoprolol(XL)Succ 25 MG Tablet PO (05:30)
[2019-07-29] MEDS: Acetaminophen 500 MG Tablet 1000 MG PO ×3 (05:31→19:50)
[2019-07-29] MEDS: Calcium Carb/Vitamin D 1 TABLET Tablet PO (08:15)
[2019-07-29 14:00] VITALS: BP 121/62; PULSE 87; RESP 16; TEMP 36.7; O2SAT 92
[2019-07-30] MEDS: Polyethylene Glycol 3350 17 GM PACKET PO (06:12)
[2019-07-30 06:13] VITALS: BP 110/41; PULSE 65
[2019-07-30] MEDS: Metoprolol(XL)Succ 25 MG Tablet PO (06:13)
[2019-07-30] MEDS: Enoxaparin 40 MG/0.4 ML Syringe SC (06:13)
[2019-07-30] MEDS: Acetaminophen 500 MG Tablet 1000 MG PO ×3 (06:15→21:28)
[2019-07-30] MEDS: Levothyroxine 75 MCG Tablet PO (06:15)
[2019-07-30] MEDS: Nystatin Powder 15gm Bottle 1 APPLIC TOPICAL ×2 (06:16→21:27)
[2019-07-30] MEDS: Menthol/Lanolin/Calamine/Znox 113 GM Tube 1 APPLIC TOPICAL ×2 (06:16→21:28)
[2019-07-30] MEDS: Furosemide 40 MG Tablet PO ×2 (06:17→13:27)
[2019-07-30] MEDS: Calcium Carb/Vitamin D 1 TABLET Tablet PO (08:50)
--- NOTE | 2019-07-30 10:40 | CASEMGMT ---
Social Work IDT met with patient and sister for care plan meeting. Discussed patient's progress in therapy. Pt is [facility] with Dr. izaguirre appt 08/18. Pt is mod assist for LE dressing, max for toileting tasks, CGA for transfers, 20 ft with FWW while hopping, set up for UE ADLs while seated. Working on strength and ROM. Explained Medicare coverage and pt to continue making progress in therapy. Pt understands Medicare may not continue throughout [facility]BS. Pt lives at home alone and has 4 steps to enter home. Will continue to follow. GALA Nguyen PERMIT TECHNICIAN
[2019-07-30 13:44] VITALS: BP 108/48; PULSE 77; RESP 16; TEMP 36.7; O2SAT 94
--- NOTE | 2019-07-30 14:35 | CHAPLAIN ---
Type of Pastoral Visit ___ Initial Visit _x__ Follow-up Visit ___ On-call Visit ___ General Patient Visit ___ Spiritual Assessment ___ Family Conference ___ Bereavement ___ Rapid Response ___ Code Blue ___ Other (describe below) Pastoral Care Referral From _x__ Patient ___ Family ___ Nurse ___ Physician ___ Clothing Consultant ___ Fruit Thinner Machine Operator ___ Other (describe below) Sacrament/Intervention _x__ Active listening ___ Anointing ___ Methodist ___ Bereavement ___ Communion ___ Nakita exploration ___ _x__ Life review _x__ Prayer ___ Reconciliation ___ Sacrament of Sick ___ Supportive presence ___ Wedding ___ Other (describe below) Pastoral Comments
[2019-07-31 06:39] VITALS: BP 109/74; PULSE 60
[2019-07-31] MEDS: Enoxaparin 40 MG/0.4 ML Syringe SC (06:39)
[2019-07-31] MEDS: Metoprolol(XL)Succ 25 MG Tablet PO (06:39)
[2019-07-31] MEDS: Furosemide 40 MG Tablet PO ×2 (06:39→13:35)
[2019-07-31] MEDS: Levothyroxine 75 MCG Tablet PO (06:39)
[2019-07-31] MEDS: Acetaminophen 500 MG Tablet 1000 MG PO ×3 (06:39→21:29)
[2019-07-31] MEDS: Polyethylene Glycol 3350 17 GM PACKET PO (06:40)
[2019-07-31] MEDS: Nystatin Powder 15gm Bottle 1 APPLIC TOPICAL ×2 (06:42→21:31)
[2019-07-31] MEDS: Menthol/Lanolin/Calamine/Znox 113 GM Tube 1 APPLIC TOPICAL ×2 (06:45→21:33)
[2019-07-31] MEDS: Calcium Carb/Vitamin D 1 TABLET Tablet PO (08:33)
[2019-07-31 13:55] VITALS: BP 115/57; PULSE 57; RESP 16; TEMP 36.5; O2SAT 93
[2019-08-01] MEDS: Enoxaparin 40 MG/0.4 ML Syringe SC (05:44)
[2019-08-01] MEDS: Levothyroxine 75 MCG Tablet PO (05:44)
[2019-08-01] MEDS: Furosemide 40 MG Tablet PO ×2 (05:44→14:14)
[2019-08-01] MEDS: Acetaminophen 500 MG Tablet 1000 MG PO ×3 (05:46→21:27)
[2019-08-01] MEDS: Polyethylene Glycol 3350 17 GM PACKET PO (05:46)
[2019-08-01 05:47] VITALS: BP 123/48; PULSE 67
[2019-08-01] MEDS: Metoprolol(XL)Succ 25 MG Tablet PO (05:47)
[2019-08-01] MEDS: Nystatin Powder 15gm Bottle 1 APPLIC TOPICAL ×2 (05:50→21:27)
[2019-08-01] MEDS: Menthol/Lanolin/Calamine/Znox 113 GM Tube 1 APPLIC TOPICAL ×2 (05:51→21:27)
[2019-08-01 06:00] LABS: Absolute Lymphocyte Count 1.96 X10^3/uL (0.83-4.51); Absolute Neutrophil Count 3.1 X10^3/uL (2.0-7.7); Basophil# 0.06 X10^3/uL; Eosinophil# 0.32 X10^3/uL; Eosinophils% 5.2 % (0-5); Hematocrit 37.3 % (37-47); Hemoglobin 11.4 g/dL (12.0-15.0); Lymphocyte # 1.96 X10^3/ul (4.0); Lymphocyte % 31.9 % (19-41); Mean Corp Hgb Conc 30.6 g/dL (32-36); Mean Corpuscular Hgb 31.1 pg (27.0-32.0); Mean Corpuscular Volume 101.9 fL (81-99); Monocyte# 0.69 X10^3/uL; Monocyte% 11.2 % (0-10); NRBC Flagged by Analyzer 0 % (0-5); Neutrophil # 3.09 X10^3/uL (2.7-7.7); Neutrophil % 50.2 % (47-70); Platelet Count 249 K/mm3 (150-450); RBC Distribution Width CV 14.2 % (11.6-14.6); Red Blood Count 3.66 M/mm3 (4.2-5.4); White Blood Count 6.2 K/mm3 (4.4-11.0)
[2019-08-01 06:42] LABS: Anion Gap 4 (5-15); BUN 25 mg/dL (7-18); BUN/Creat Ratio 33.2 RATIO (10-20); Calcium,Total 8.9 mg/dL (8.5-10.1); Chloride 104 mmol/L (98-107); Creatinine, Serum 0.75 mg/dL (0.55-1.02); EST Glomerular Filtration Rate 78 mL/min (>60); Est Glom Filt Rate - Afr Amer 95 mL/min (>60); Glucose 92 mg/dL (74-106); Potassium 4.1 mmol/L (3.5-5.1); Sodium Level 141 mmol/L (136-145)
[2019-08-01] MEDS: Calcium Carb/Vitamin D 1 TABLET Tablet PO (07:57)
[2019-08-01 13:40] VITALS: BP 113/68; PULSE 78; RESP 16; TEMP 36.9; O2SAT 95
[2019-08-02] MEDS: Nystatin Powder 15gm Bottle 1 APPLIC TOPICAL ×2 (06:11→21:12)
[2019-08-02] MEDS: Menthol/Lanolin/Calamine/Znox 113 GM Tube 1 APPLIC TOPICAL ×2 (06:11→21:12)
[2019-08-02] MEDS: Enoxaparin 40 MG/0.4 ML Syringe SC (06:12)
[2019-08-02] MEDS: Polyethylene Glycol 3350 17 GM PACKET PO (06:13)
[2019-08-02] MEDS: Furosemide 40 MG Tablet PO ×2 (06:13→13:57)
[2019-08-02] MEDS: Levothyroxine 75 MCG Tablet PO (06:13)
[2019-08-02] MEDS: Acetaminophen 500 MG Tablet 1000 MG PO ×3 (06:13→21:10)
[2019-08-02 06:14] VITALS: BP 118/62; PULSE 60
[2019-08-02] MEDS: Metoprolol(XL)Succ 25 MG Tablet PO (06:14)
[2019-08-02] MEDS: Calcium Carb/Vitamin D 1 TABLET Tablet PO (08:06)
[2019-08-02] MEDS: Tuberculin,Purif.prot.deriv. 50 TU/ML Vial 5 ML ID (10:49)
[2019-08-02 11:23] VITALS: PULSE 65; RESP 18; O2SAT 97
[2019-08-02 13:42] VITALS: BP 105/54; PULSE 71; RESP 16; TEMP 36.6; O2SAT 91
[2019-08-03] MEDS: Acetaminophen 500 MG Tablet 1000 MG PO ×3 (05:22→21:23)
[2019-08-03] MEDS: Enoxaparin 40 MG/0.4 ML Syringe SC (05:22)
[2019-08-03 05:23] VITALS: BP 124/51; PULSE 56
[2019-08-03] MEDS: Levothyroxine 75 MCG Tablet PO (05:23)
[2019-08-03] MEDS: Senna/Docusate Sodium 1 Tablet 2 TABLET PO (05:23)
[2019-08-03] MEDS: Metoprolol(XL)Succ 25 MG Tablet PO (05:23)
[2019-08-03] MEDS: Menthol/Lanolin/Calamine/Znox 113 GM Tube 1 APPLIC TOPICAL ×2 (05:24→21:26)
[2019-08-03] MEDS: Furosemide 40 MG Tablet PO ×2 (05:24→13:32)
[2019-08-03] MEDS: Nystatin Powder 15gm Bottle 1 APPLIC TOPICAL ×2 (05:24→21:26)
[2019-08-03] MEDS: Polyethylene Glycol 3350 17 GM PACKET PO (05:56)
[2019-08-03] MEDS: Calcium Carb/Vitamin D 1 TABLET Tablet PO (07:51)
[2019-08-03 14:30] VITALS: BP 115/84; PULSE 73; RESP 16; TEMP 36.4; O2SAT 94
[2019-08-03 21:31] VITALS: PULSE 86; RESP 20; O2SAT 91
[2019-08-04] MEDS: Furosemide 40 MG Tablet PO ×2 (06:16→15:08)
[2019-08-04] MEDS: Levothyroxine 75 MCG Tablet PO (06:16)
[2019-08-04] MEDS: Acetaminophen 500 MG Tablet 1000 MG PO ×3 (06:16→20:00)
[2019-08-04] MEDS: Enoxaparin 40 MG/0.4 ML Syringe SC (06:18)
[2019-08-04 06:20] VITALS: BP 115/69; PULSE 72
[2019-08-04] MEDS: Metoprolol(XL)Succ 25 MG Tablet PO (06:20)
[2019-08-04] MEDS: Nystatin Powder 15gm Bottle 1 APPLIC TOPICAL ×2 (06:24→20:02)
[2019-08-04] MEDS: Menthol/Lanolin/Calamine/Znox 113 GM Tube 1 APPLIC TOPICAL ×2 (06:25→20:03)
[2019-08-04] MEDS: Calcium Carb/Vitamin D 1 TABLET Tablet PO (08:14)
[2019-08-04 14:25] VITALS: BP 124/51; PULSE 88; RESP 14; TEMP 35.8; O2SAT 98
[2019-08-05] MEDS: Enoxaparin 40 MG/0.4 ML Syringe SC (05:49)
[2019-08-05] MEDS: Levothyroxine 75 MCG Tablet PO (05:49)
[2019-08-05] MEDS: Menthol/Lanolin/Calamine/Znox 113 GM Tube 1 APPLIC TOPICAL ×2 (05:49→20:31)
[2019-08-05 05:50] VITALS: BP 92/58; PULSE 68
[2019-08-05] MEDS: Acetaminophen 500 MG Tablet 1000 MG PO ×3 (05:50→20:30)
[2019-08-05] MEDS: Furosemide 40 MG Tablet PO ×2 (05:50→14:25)
[2019-08-05] MEDS: Metoprolol(XL)Succ 25 MG Tablet PO (05:50)
[2019-08-05] MEDS: Nystatin Powder 15gm Bottle 1 APPLIC TOPICAL ×2 (05:50→20:30)
[2019-08-05] MEDS: Calcium Carb/Vitamin D 1 TABLET Tablet PO (08:01)
[2019-08-05 14:04] VITALS: BP 122/54; PULSE 80; RESP 16; TEMP 36.7; O2SAT 92
[2019-08-06] MEDS: Furosemide 40 MG Tablet PO ×2 (05:46→13:20)
[2019-08-06] MEDS: Acetaminophen 500 MG Tablet 1000 MG PO ×3 (05:46→21:00)
[2019-08-06] MEDS: Levothyroxine 75 MCG Tablet PO (05:46)
[2019-08-06] MEDS: Enoxaparin 40 MG/0.4 ML Syringe SC (05:46)
[2019-08-06 05:47] VITALS: BP 119/49; PULSE 65
[2019-08-06] MEDS: Metoprolol(XL)Succ 25 MG Tablet PO (05:47)
[2019-08-06] MEDS: Nystatin Powder 15gm Bottle 1 APPLIC TOPICAL ×2 (05:48→21:01)
[2019-08-06] MEDS: Menthol/Lanolin/Calamine/Znox 113 GM Tube 1 APPLIC TOPICAL ×2 (05:49→21:01)
[2019-08-06] MEDS: Calcium Carb/Vitamin D 1 TABLET Tablet PO (07:48)
--- NOTE | 2019-08-06 11:53 | MDS.RN ---
Information for the mds was obtained from review of the clinical record, interview of resident, staff, and direct observation of resident's care.
[2019-08-06 14:08] VITALS: BP 119/60; PULSE 89; RESP 17; TEMP 36.7; O2SAT 92
[2019-08-07] MEDS: Levothyroxine 75 MCG Tablet PO (05:53)
[2019-08-07] MEDS: Acetaminophen 500 MG Tablet 1000 MG PO ×3 (05:53→21:02)
[2019-08-07 05:54] VITALS: PULSE 75
[2019-08-07] MEDS: Metoprolol(XL)Succ 25 MG Tablet PO (05:54)
[2019-08-07] MEDS: Nystatin Powder 15gm Bottle 1 APPLIC TOPICAL ×2 (05:55→21:05)
[2019-08-07] MEDS: Menthol/Lanolin/Calamine/Znox 113 GM Tube 1 APPLIC TOPICAL ×2 (05:55→21:05)
[2019-08-07] MEDS: Enoxaparin 40 MG/0.4 ML Syringe SC (05:56)
[2019-08-07] MEDS: Furosemide 40 MG Tablet PO ×2 (05:56→14:33)
[2019-08-07] MEDS: Calcium Carb/Vitamin D 1 TABLET Tablet PO (07:45)
[2019-08-07 09:30] VITALS: PULSE 75; RESP 16; O2SAT 97
[2019-08-07 13:57] VITALS: BP 109/53; PULSE 67; RESP 16; TEMP 36.4; O2SAT 93
[2019-08-08] MEDS: Acetaminophen 500 MG Tablet 1000 MG PO ×3 (06:03→20:54)
[2019-08-08 06:04] VITALS: BP 121/53; PULSE 68
[2019-08-08] MEDS: Levothyroxine 75 MCG Tablet PO (06:04)
[2019-08-08] MEDS: Metoprolol(XL)Succ 25 MG Tablet PO (06:04)
[2019-08-08] MEDS: Furosemide 40 MG Tablet PO ×2 (06:04→13:09)
[2019-08-08] MEDS: Enoxaparin 40 MG/0.4 ML Syringe SC (06:05)
[2019-08-08] MEDS: Menthol/Lanolin/Calamine/Znox 113 GM Tube 1 APPLIC TOPICAL ×2 (06:08→20:59)
[2019-08-08] MEDS: Nystatin Powder 15gm Bottle 1 APPLIC TOPICAL ×2 (06:09→20:58)
[2019-08-08] MEDS: Calcium Carb/Vitamin D 1 TABLET Tablet PO (08:09)
[2019-08-08 13:29] VITALS: BP 96/55; PULSE 86; RESP 16; TEMP 36.8; O2SAT 96
--- NOTE | 2019-08-08 16:05 | CHAPLAIN ---
Type of Pastoral Visit ___ Initial Visit _x__ Follow-up Visit ___ On-call Visit ___ General Patient Visit ___ Spiritual Assessment ___ Family Conference ___ Bereavement ___ Rapid Response ___ Code Blue ___ Other (describe below) Pastoral Care Referral From _x__ Patient ___ Family ___ Nurse ___ Physician ___ Clothing Worker ___ Bung Sewer ___ Other (describe below) Sacrament/Intervention _x__ Active listening ___ Anointing ___ Christian ___ Bereavement ___ Communion ___ Nakita exploration ___ ___ Life review ___ Prayer ___ Reconciliation ___ Sacrament of Sick _x__ Supportive presence ___ Wedding ___ Other (describe below) Pastoral Comments
--- NOTE | 2019-08-08 16:19 | CASEMGMT ---
Social Work Met with pt to provide emotional support d/t isolation precautions. Provided picture/card written from community members. Gabbi Black, social work purchasing intern GALA Nguyen SEWING TRIMMER
[2019-08-09] MEDS: Enoxaparin 40 MG/0.4 ML Syringe SC (06:33)
[2019-08-09] MEDS: Levothyroxine 75 MCG Tablet PO (06:33)
[2019-08-09] MEDS: Furosemide 40 MG Tablet PO ×2 (06:33→15:08)
[2019-08-09 06:34] VITALS: BP 116/58; PULSE 70
[2019-08-09] MEDS: Nystatin Powder 15gm Bottle 1 APPLIC TOPICAL ×2 (06:34→21:13)
[2019-08-09] MEDS: Metoprolol(XL)Succ 25 MG Tablet PO (06:34)
[2019-08-09] MEDS: Acetaminophen 500 MG Tablet 1000 MG PO ×3 (06:34→21:13)
[2019-08-09] MEDS: Menthol/Lanolin/Calamine/Znox 113 GM Tube 1 APPLIC TOPICAL ×2 (06:35→21:14)
[2019-08-09] MEDS: Calcium Carb/Vitamin D 1 TABLET Tablet PO (08:46)
[2019-08-09 13:53] VITALS: BP 126/41; PULSE 79; RESP 24; TEMP 36.3; O2SAT 91
[2019-08-09 14:17] VITALS: PULSE 79; RESP 16
[2019-08-10] MEDS: Nystatin Powder 15gm Bottle 1 APPLIC TOPICAL ×2 (06:21→21:33)
[2019-08-10] MEDS: Menthol/Lanolin/Calamine/Znox 113 GM Tube 1 APPLIC TOPICAL ×2 (06:21→21:33)
[2019-08-10 06:22] VITALS: BP 114/67; PULSE 60
[2019-08-10] MEDS: Levothyroxine 75 MCG Tablet PO (06:22)
[2019-08-10] MEDS: Metoprolol(XL)Succ 25 MG Tablet PO (06:22)
[2019-08-10] MEDS: Acetaminophen 500 MG Tablet 1000 MG PO ×3 (06:22→21:34)
[2019-08-10] MEDS: Furosemide 40 MG Tablet PO ×2 (06:22→14:14)
[2019-08-10] MEDS: Enoxaparin 40 MG/0.4 ML Syringe SC (06:22)
[2019-08-10] MEDS: Calcium Carb/Vitamin D 1 TABLET Tablet PO (07:35)
[2019-08-10 13:10] VITALS: BP 143/55; PULSE 76; RESP 18; TEMP 36.5; O2SAT 92
[2019-08-11] MEDS: Acetaminophen 500 MG Tablet 1000 MG PO ×3 (06:35→21:05)
[2019-08-11] MEDS: Levothyroxine 75 MCG Tablet PO (06:35)
[2019-08-11] MEDS: Furosemide 40 MG Tablet PO ×2 (06:36→13:11)
[2019-08-11 06:41] VITALS: BP 133/57; PULSE 74
[2019-08-11] MEDS: Enoxaparin 40 MG/0.4 ML Syringe SC (06:41)
[2019-08-11] MEDS: Metoprolol(XL)Succ 25 MG Tablet PO (06:41)
[2019-08-11] MEDS: Menthol/Lanolin/Calamine/Znox 113 GM Tube 1 APPLIC TOPICAL ×2 (06:45→21:07)
[2019-08-11] MEDS: Nystatin Powder 15gm Bottle 1 APPLIC TOPICAL ×2 (06:48→21:06)
[2019-08-11] MEDS: Calcium Carb/Vitamin D 1 TABLET Tablet PO (07:37)
[2019-08-11 09:27] VITALS: PULSE 60; RESP 16; O2SAT 97
[2019-08-11 14:21] VITALS: BP 109/61; PULSE 69; RESP 16; TEMP 36.7; O2SAT 93
[2019-08-12] MEDS: Acetaminophen 500 MG Tablet 1000 MG PO ×3 (06:01→21:00)
[2019-08-12 06:02] VITALS: BP 130/50; PULSE 66
[2019-08-12] MEDS: Levothyroxine 75 MCG Tablet PO (06:02)
[2019-08-12] MEDS: Furosemide 40 MG Tablet PO ×2 (06:02→13:43)
[2019-08-12] MEDS: Enoxaparin 40 MG/0.4 ML Syringe SC (06:02)
[2019-08-12] MEDS: Metoprolol(XL)Succ 25 MG Tablet PO (06:02)
[2019-08-12] MEDS: Menthol/Lanolin/Calamine/Znox 113 GM Tube 1 APPLIC TOPICAL ×2 (06:06→20:54)
[2019-08-12] MEDS: Nystatin Powder 15gm Bottle 1 APPLIC TOPICAL ×2 (06:06→20:55)
[2019-08-12] MEDS: Calcium Carb/Vitamin D 1 TABLET Tablet PO (08:00)
[2019-08-12 13:45] VITALS: BP 110/54; PULSE 69; RESP 14; TEMP 36.8; O2SAT 94
[2019-08-12] MEDS: Cephalexin 250 MG Capsule PO (17:59)
[2019-08-13 05:45] LABS: Absolute Lymphocyte Count 2.05 X10^3/uL (0.83-4.51); Absolute Neutrophil Count 3.4 X10^3/uL (2.0-7.7); Basophil# 0.06 X10^3/uL; Basophil% 0.9 % (0-1); Eosinophil# 0.26 X10^3/uL; Hematocrit 39.5 % (37-47); Hemoglobin 12.2 g/dL (12.0-15.0); Lymphocyte # 2.05 X10^3/ul (4.0); Lymphocyte % 31.7 % (19-41); Mean Corp Hgb Conc 30.9 g/dL (32-36); Mean Corpuscular Hgb 31.7 pg (27.0-32.0); Mean Corpuscular Volume 102.6 fL (81-99); Mean Platelet Vol. 9.6 fl (6.2-12.0); Monocyte# 0.68 X10^3/uL; Monocyte% 10.5 % (0-10); NRBC Flagged by Analyzer 0 % (0-5); Neutrophil % 52.6 % (47-70); Platelet Count 241 K/mm3 (150-450); RBC Distribution Width CV 14.2 % (11.6-14.6); RBC Distribution Width SD 53.2 fl (35.1-43.9); Red Blood Count 3.85 M/mm3 (4.2-5.4); White Blood Count 6.5 K/mm3 (4.4-11.0)
[2019-08-13 06:03] VITALS: BP 126/57; PULSE 65; RESP 18; TEMP 36.8; O2SAT 99
[2019-08-13 06:05] VITALS: BP 126/57; PULSE 65
[2019-08-13] MEDS: Metoprolol(XL)Succ 25 MG Tablet PO (06:05)
[2019-08-13] MEDS: Calcium Carb/Vitamin D 1 TABLET Tablet PO (06:05)
[2019-08-13] MEDS: Cephalexin 250 MG Capsule PO ×2 (06:06→17:13)
[2019-08-13] MEDS: Acetaminophen 500 MG Tablet 1000 MG PO ×3 (06:06→20:55)
[2019-08-13] MEDS: Furosemide 40 MG Tablet PO ×2 (06:06→13:31)
[2019-08-13] MEDS: Menthol/Lanolin/Calamine/Znox 113 GM Tube 1 APPLIC TOPICAL ×2 (06:06→20:54)
[2019-08-13] MEDS: Nystatin Powder 15gm Bottle 1 APPLIC TOPICAL ×2 (06:06→20:54)
[2019-08-13] MEDS: Levothyroxine 75 MCG Tablet PO (06:06)
[2019-08-13] MEDS: Enoxaparin 40 MG/0.4 ML Syringe SC (06:06)
[2019-08-13 06:08] LABS: Anion Gap 5 (5-15); BUN 25 mg/dL (7-18); BUN/Creat Ratio 30.9 RATIO (10-20); Calcium,Total 8.9 mg/dL (8.5-10.1); Chloride 103 mmol/L (98-107); Creatinine, Serum 0.81 mg/dL (0.55-1.02); EST Glomerular Filtration Rate 72 mL/min (>60); Est Glom Filt Rate - Afr Amer 87 mL/min (>60); Estimated Creatinine Clearance 42.35 ml/min; Glucose 92 mg/dL (74-106); Potassium 4.3 mmol/L (3.5-5.1); Sodium Level 142 mmol/L (136-145)
[2019-08-13 08:31] VITALS: PULSE 70; RESP 18; O2SAT 98
--- NOTE | 2019-08-13 10:55 | NURSING ---
spoke with staff at Dr De Luna office regarding appt, pt would like her to see her here instead of having to travel there at this time. They cancelled appt on 08/18 for now and davon will call with day she will be in to see pt, possibly on 08/18. she is out of office until then. also updated them on pt starting on keflex for redness of incision
[2019-08-13 14:10] VITALS: BP 99/48; PULSE 83; RESP 16; TEMP 36.7; O2SAT 94
[2019-08-14] MEDS: Menthol/Lanolin/Calamine/Znox 113 GM Tube 1 APPLIC TOPICAL ×2 (06:40→20:18)
[2019-08-14] MEDS: Nystatin Powder 15gm Bottle 1 APPLIC TOPICAL ×2 (06:40→20:18)
[2019-08-14] MEDS: Enoxaparin 40 MG/0.4 ML Syringe SC (06:41)
[2019-08-14] MEDS: Furosemide 40 MG Tablet PO ×2 (06:41→13:25)
[2019-08-14] MEDS: Cephalexin 250 MG Capsule PO ×2 (06:41→17:25)
[2019-08-14] MEDS: Levothyroxine 75 MCG Tablet PO (06:42)
[2019-08-14] MEDS: Acetaminophen 500 MG Tablet 1000 MG PO ×3 (06:42→20:18)
[2019-08-14 06:45] VITALS: BP 140/73; PULSE 67
[2019-08-14] MEDS: Metoprolol(XL)Succ 25 MG Tablet PO (06:45)
[2019-08-14] MEDS: Calcium Carb/Vitamin D 1 TABLET Tablet PO (07:55)
[2019-08-14 13:42] VITALS: BP 128/48; PULSE 80; RESP 16; TEMP 36.6; O2SAT 92
--- NOTE | 2019-08-15 00:32 | NURSING ---
2200- During pt assessment noted quarter size pink raised area, soft to touch. Pt states she used to get boils near this area years ago. Note left for Dr. Thapa.
[2019-08-15 06:32] VITALS: BP 112/58; PULSE 58
[2019-08-15] MEDS: Metoprolol(XL)Succ 25 MG Tablet PO (06:32)
[2019-08-15] MEDS: Menthol/Lanolin/Calamine/Znox 113 GM Tube 1 APPLIC TOPICAL ×2 (06:33→20:58)
[2019-08-15] MEDS: Acetaminophen 500 MG Tablet 1000 MG PO ×3 (06:33→20:56)
[2019-08-15] MEDS: Levothyroxine 75 MCG Tablet PO (06:33)
[2019-08-15] MEDS: Cephalexin 250 MG Capsule PO ×2 (06:33→16:21)
[2019-08-15] MEDS: Enoxaparin 40 MG/0.4 ML Syringe SC (06:33)
[2019-08-15] MEDS: Furosemide 40 MG Tablet PO ×2 (06:33→14:09)
[2019-08-15] MEDS: Nystatin Powder 15gm Bottle 1 APPLIC TOPICAL ×2 (06:34→20:57)
[2019-08-15] MEDS: Calcium Carb/Vitamin D 1 TABLET Tablet PO (07:44)
[2019-08-15 08:57] VITALS: PULSE 77; RESP 18; O2SAT 94
--- NOTE | 2019-08-15 09:06 | NURSING ---
warm compress applied to dime size raised area to RT axillary/bra line area as ordered.
[2019-08-15] MEDS: Doxycycline 100 MG CAPSULE PO (09:38)
[2019-08-15 13:09] VITALS: BP 121/61; PULSE 70; RESP 16; TEMP 36.7; O2SAT 95
[2019-08-16] MEDS: Doxycycline 100 MG CAPSULE PO (05:42)
[2019-08-16] MEDS: Furosemide 40 MG Tablet PO ×2 (05:42→13:55)
[2019-08-16] MEDS: Levothyroxine 75 MCG Tablet PO (05:42)
[2019-08-16] MEDS: Nystatin Powder 15gm Bottle 1 APPLIC TOPICAL ×2 (05:43→21:03)
[2019-08-16] MEDS: Menthol/Lanolin/Calamine/Znox 113 GM Tube 1 APPLIC TOPICAL ×2 (05:43→21:03)
[2019-08-16] MEDS: Acetaminophen 500 MG Tablet 1000 MG PO ×3 (05:43→21:00)
[2019-08-16] MEDS: Enoxaparin 40 MG/0.4 ML Syringe SC (05:43)
[2019-08-16 05:44] VITALS: BP 122/44; PULSE 62
[2019-08-16] MEDS: Metoprolol(XL)Succ 25 MG Tablet PO (05:44)
[2019-08-16] MEDS: Cephalexin 250 MG Capsule PO ×2 (05:44→16:57)
[2019-08-16] MEDS: Calcium Carb/Vitamin D 1 TABLET Tablet PO (08:02)
[2019-08-16 14:00] VITALS: BP 110/54; PULSE 79; RESP 18; TEMP 36.8; O2SAT 93
[2019-08-17 06:16] VITALS: BP 121/58; PULSE 66
[2019-08-17] MEDS: Doxycycline 100 MG CAPSULE PO (06:16)
[2019-08-17] MEDS: Metoprolol(XL)Succ 25 MG Tablet PO (06:16)
[2019-08-17] MEDS: Acetaminophen 500 MG Tablet 1000 MG PO ×3 (06:16→20:11)
[2019-08-17] MEDS: Cephalexin 250 MG Capsule PO ×2 (06:16→17:12)
[2019-08-17] MEDS: Enoxaparin 40 MG/0.4 ML Syringe SC (06:16)
[2019-08-17] MEDS: Levothyroxine 75 MCG Tablet PO (06:17)
[2019-08-17] MEDS: Furosemide 40 MG Tablet PO ×2 (06:17→14:32)
[2019-08-17] MEDS: Nystatin Powder 15gm Bottle 1 APPLIC TOPICAL ×2 (06:21→20:12)
[2019-08-17] MEDS: Menthol/Lanolin/Calamine/Znox 113 GM Tube 1 APPLIC TOPICAL ×2 (06:21→20:12)
[2019-08-17] MEDS: Calcium Carb/Vitamin D 1 TABLET Tablet PO (07:47)
[2019-08-17 08:45] VITALS: PULSE 70; RESP 16; O2SAT 96
[2019-08-17 13:51] VITALS: BP 114/54; PULSE 82; RESP 16; TEMP 36.7; O2SAT 94
[2019-08-18] MEDS: Acetaminophen 500 MG Tablet 1000 MG PO ×3 (06:22→20:25)
[2019-08-18] MEDS: Furosemide 40 MG Tablet PO ×2 (06:22→13:22)
[2019-08-18] MEDS: Cephalexin 250 MG Capsule PO ×2 (06:22→17:11)
[2019-08-18] MEDS: Enoxaparin 40 MG/0.4 ML Syringe SC (06:22)
[2019-08-18] MEDS: Doxycycline 100 MG CAPSULE PO (06:22)
[2019-08-18 06:23] VITALS: BP 120/44; PULSE 61
[2019-08-18] MEDS: Nystatin Powder 15gm Bottle 1 APPLIC TOPICAL ×2 (06:23→20:25)
[2019-08-18] MEDS: Metoprolol(XL)Succ 25 MG Tablet PO (06:23)
[2019-08-18] MEDS: Levothyroxine 75 MCG Tablet PO (06:23)
[2019-08-18] MEDS: Menthol/Lanolin/Calamine/Znox 113 GM Tube 1 APPLIC TOPICAL ×2 (06:24→20:25)
[2019-08-18] MEDS: Calcium Carb/Vitamin D 1 TABLET Tablet PO (07:38)
--- NOTE | 2019-08-18 08:12 | RAD_ITS ---
STUDY: X-RAY - LEFT ANKLE REASON FOR EXAM: Female, 84 years old. F/U FOR LEFT ANKLE SURGERY SHE HAD ON July. TECHNIQUE: 3 view(s) of the ankle. COMPARISON: Comparison is made with prior examination dated July 09 2019. FINDINGS: The patient is status post open reduction and internal fixation of the distal left fibular fracture utilizing spectral and side plate fixation devices. 2 metallic screws are seen in the distal tibial fibular joint. Normal tibiotalar articulation and ankle mortise. Normal visualized talus and calcaneus. The visualized subtalar, talonavicular, calcaneocuboid and tarsal articulations are normal. The soft tissue structures are unremarkable. RAD/Ankle min 3 Views IMPRESSION: Status post open reduction internal fixation of the distal fibular fracture utilizing screw in plate fixation. There is good alignment. Electronically Signed: Robert Berger, at 8:42 EDT , Service support ,
[2019-08-18 13:55] VITALS: BP 114/36; PULSE 64; RESP 14; TEMP 36.1; O2SAT 94
[2019-08-19] MEDS: Menthol/Lanolin/Calamine/Znox 113 GM Tube 1 APPLIC TOPICAL ×2 (06:11→21:38)
[2019-08-19] MEDS: Nystatin Powder 15gm Bottle 1 APPLIC TOPICAL ×2 (06:11→21:38)
[2019-08-19] MEDS: Acetaminophen 500 MG Tablet 1000 MG PO ×3 (06:12→21:36)
[2019-08-19] MEDS: Furosemide 40 MG Tablet PO ×2 (06:12→13:31)
[2019-08-19] MEDS: Doxycycline 100 MG CAPSULE PO (06:12)
[2019-08-19 06:13] VITALS: BP 110/49; PULSE 58
[2019-08-19] MEDS: Cephalexin 250 MG Capsule PO ×2 (06:13→17:52)
[2019-08-19] MEDS: Enoxaparin 40 MG/0.4 ML Syringe SC (06:13)
[2019-08-19] MEDS: Metoprolol(XL)Succ 25 MG Tablet PO (06:13)
[2019-08-19] MEDS: Levothyroxine 75 MCG Tablet PO (06:13)
[2019-08-19] MEDS: Calcium Carb/Vitamin D 1 TABLET Tablet PO (08:04)
--- NOTE | 2019-08-19 08:11 | NURSING ---
boil to rt axillary with white drng. warm compress applied
--- NOTE | 2019-08-19 09:33 | PN_ITS ---
Subjective: Resident seen in room, sitting in recliner for regulatory visit. She has no new complaints, she feels she is getting stronger every day, she feels her pain is well controlled. Vitals/I&O's: Vital Signs Temp Pulse Resp BP Pulse Ox 97.0 F L 58 L 14 110/49 L 94 08/18/19 13:55 08/19/19 06:13 08/18/19 13:55 08/19/19 06:13 08/18/19 13:55 Oxygen Delivery Method Room Air Weight: 78.528 kg Body Mass Index (BMI) 31.4 Intake and Output for Last 24 Hours 08/17/19 08/18/19 08/19/19 23:59 23:59 23:59 Intake Total 1200 / 1200 660 / 660 360 / 360 Balance 1200 / 1200 660 / 660 360 / 360 Past Medical History Past Medical History (Chronic Problems): Chronic Problems (Last Reviewed 07/11/19 @ 10:[address] 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 Paul Grade I diastolic dysfunction (Chronic) Secondary pulmonary arterial hypertension (Chronic) Estimated PA systolic in April 2018 was 42 mmHg. 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 Cecille Brito DO) Secondary pulmonary arterial hypertension (Chronic) I27.21 Estimated PA systolic in April 2018 was 42 mmHg. Chronic diastolic (congestive) heart failure (Chronic) I50.32 Essential (primary) hypertension (Chronic) I10 Non-rheumatic aortic stenosis (Chronic) I35.0 AVR 05/06/12 Hypothyroidism E03.9 Obesity E66.9 Obstructive sleep apnea G47.33 Vertigo R42 Allergies aspirin Allergy (Verified 07/09/19 07:06) made my blood too thin hydrocodone [From Vicodin] Allergy (Verified 07/09/19 12:10) feels like getting high niacin Adverse Reaction (Verified 07/09/19 07:06) severe sweating simvastatin Adverse Reaction (Verified 07/09/19 07:06) muscle aches Home Medications: Ambulatory Orders Medication Instructions Recorded Calcium Carbonate/Vitamin D3 1 tab PO DAILY 06/30/19 [Calcium 600-Vit D3 800 Tablet] Cholecalciferol (VIT D3) [Vitamin 1,000 unit PO DAILY 06/30/19 D3] Furosemide [Lasix] 40 mg PO BID 06/30/19 Levothyroxine [Synthroid] 75 mcg PO DAILY 06/30/19 Multivitamin with Minerals [One 1 tab PO DAILY 06/30/19 Daily Plus Minerals] [place]-3 Fatty Acids [Fish Oil] 2 tab PO DAILY 06/30/19 Potassium Chloride [K-Dur] 10 meq PO BID 06/30/19 Psyllium [Metamucil] 1 packet PO DAILY 06/30/19 Acetaminophen [Tylenol] 1,000 mg PO Q8 07/10/19 Enoxaparin Sodium [Lovenox] 40 mg SQ DAILY 07/10/19 Metoprolol Succinate 25 mg PO DAILY #0 07/10/19 Bisacodyl [Dulcolax] 10 mg RECTAL .PRN X 1 PRN suppos. 07/25/19 Magnesium Hydroxide [Milk Of 30 ml PO .PRN X 1 PRN udc 07/25/19 Magnesia] Menthol/Lanolin/Calamine/Znox 1 applic TOPICAL BID 07/25/19 [Calmoseptine Ointment] Nystatin Powder [Mycostatin Powder] 1 applic TOPICAL BID 07/25/19 Senna/Docusate Sodium [Senokot-S] 2 tab PO BID 07/25/19 Surgical History: Surgical History (Last Reviewed 07/11/19 @ 10:[address] Cecille Brito DO) History of aortic valve replacement with bioprosthetic valve (Chronic) Onset Date: 05/06/12 Z95.4 AVR with #[facility] 05/06/12 History of parathyroidectomy Z98.890 History of right and left heart catheterization Onset Date: 09/01/11 Z98.890 History of tonsillectomy and adenoidectomy Z98.890 Hx of cholecystectomy Z90.49 H/O breast biopsy (Inactive) Z98.890 H/O colonoscopy (Inactive) Z98.890 Surgical History: adenoidectomy, cholecystectomy, tonsillectomy, - - AVR on 05/06/12, ORIF of left ankle fracture 07/09/19, parathyroidectomy, breast biopsy, colonoscopy, right and left heart catheterization on 09/01/2011 Psychiatric History: Anxiety, Depression 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 Cecille Brito DO) Father Dementia Mother Liver cirrhosis Sister Aortic valve disease Brother Dementia History Items: No pertinent history Paternal Family History: Family History (Last Reviewed 07/11/19 @ 10:[address] Cecille Brito DO) Father Dementia Mother Liver cirrhosis Sister Aortic valve disease Brother Dementia History Items: No pertinent history Capacity - Capacity Assessment Tool Can the patient make a choice & communicate that choice?: Yes Can the patient understand benefits, risks and alternatives?: Yes Can the patient make a logical, rational choice?: Yes Is the choice the patient makes consistent w/ their values?: Yes Is there an impending, emergent risk to the patient?: No Does the patient have an Advance Directive?: No Is there a Surrogate Available?: Yes i.e. HCPOA: Yes i.e. close relative (spouse, child, parent, sibling)?: Yes Review of Systems Constitutional: Denies: Chills, Fever, Weight Change HEENT: Denies: Head Aches, Sinus Congestion, Sinus Drainage Cardiovascular: Denies: Chest Pain, Palpitations Respiratory: Denies: Cough, Shortness of breath at rest, Sputum production Gastrointestinal: Denies: Abdominal Pain, Nausea, Vomiting Genitourinary: Denies: Dysuria Musculoskeletal: Denies: Joint Pain, Joint Tenderness Skin: Denies: Rash, Wounds Neurological: Denies: Numbness, Tingling, Focal weakness Psychiatric: Denies: Anxiety, Depression, Homicidal Ideations, Suicidal Ideations Hematologic/ Lymphatic: Denies: Easy Bruising, Easy Bleeding Patient Problems: Active and Suspected Problems (Last Reviewed 07/11/19 @ 10:[address] Cecille Brito DO) Debility (Acute) Closed left ankle fracture (Acute) Hypokalemia (Acute) - Physical Exam Vitals/I&O's: Vital Signs Temp Pulse Resp BP Pulse Ox 97.0 F L 58 L 14 110/49 L 94 08/18/19 13:55 08/19/19 06:13 08/18/19 13:55 08/19/19 06:13 08/18/19 13:55 Oxygen Delivery Method Room Air Weight: 78.528 kg Body Mass Index (BMI) 31.4 Intake and Output for Last 24 Hours 08/17/19 08/18/19 08/19/19 23:59 23:59 23:59 Intake Total 1200 / 1200 660 / 660 360 / 360 Balance 1200 / 1200 660 / 660 360 / 360 General: Alert, Oriented x3, Cooperative HEENT: Atraumatic, PERRLA, EOMI, Normocephalic Neck: Supple, No JVD, Negative Carotid Bruits Lungs: Clear to auscultation, Normal air movement Cardiovascular: Regular rate, No murmurs Abdomen: Bowel Sounds Present, Soft, Non Tender Extremities: No edema, Capillary Refill Less than 3 Seconds, - - Right axillary draining abscess, Left ankle dressed. Skin: No rashes, No breakdown Musculoskeletal: No Tenderness to Palpation of Joints or Extremities Neurological: Cranial nerves II-XII grossly intact Psych/Mental Status: Normal Affect, Appropriate Current Medications Acetaminophen (Tylenol) 1,000 mg PO Q8 [facility] Last Admin: 08/19/19 06:12 Dose: 1,000 mg Documented by: Bisacodyl (Dulcolax) 10 mg PO DAILY PRN PRN Reason: Constipation Calamine/Phenol (Calmoseptine Ointment) 1 applic TOPICAL 0600,2200 [facility]; Protocol Last Admin: 08/19/19 06:11 Dose: 1 applicatio Documented by: Calcium/Vitamin D (Os-Mikael 500mg + D) 1 tablet PO DAILY@0800 [facility] Last Admin: 08/19/19 08:04 Dose: 1 tablet Documented by: Cephalexin (Keflex) 250 mg PO Q12 [facility] Stop: 08/19/19 18:01 Last Admin: 08/19/19 06:13 Dose: 250 mg Documented by: Cholecalciferol (Vitamin D (25mcg)) 1,000 unit PO DAILY [facility] Last Admin: 08/19/19 06:12 Dose: 1,000 unit Documented by: Doxycycline Monohydrate (Doxycycline) 100 mg PO DAILY [facility] Stop: 08/23/19 10:01 Last Admin: 08/19/19 06:12 Dose: 100 mg Documented by: Enoxaparin Sodium (Lovenox) 40 mg SC DAILY@0600 [facility] Last Admin: 08/19/19 06:13 Dose: 40 mg Documented by: Furosemide (Lasix) 40 mg PO 0600,1400 [facility] Last Admin: 08/19/19 06:12 Dose: 40 mg Documented by: Levothyroxine Sodium (Synthroid) 75 mcg PO DAILY@0600 [facility] Last Admin: 08/19/19 06:13 Dose: 75 mcg Documented by: Metoprolol Succinate (Toprol Xl (Beta Evelio)) 25 mg PO DAILY [facility] Last Admin: 08/19/19 06:13 Dose: 25 mg Documented by: Nystatin (Mycostatin Powder) 1 applic TOPICAL 0600,2200 [facility]; Protocol Last Admin: 08/19/19 06:11 Dose: 1 applicatio Documented by: Polyethylene Glycol (Miralax) 17 gm PO DAILY PRN PRN PRN Reason: Constipation Potassium Chloride (K-Dur) [facility]q [facility] Last Admin: 08/19/19 08:04 Dose: 10 meq Documented by: Senna/Docusate Sodium (Senokot-S, Treva-Colace) 2 tablet PO BID PRN PRN PRN Reason: Constipation Assessment/Plan All Active Problems (Last Reviewed 07/11/19 @ 10:[address] Cecille Brito, DO) Status post ORIF of fracture of ankle (Acute) Normochromic normocytic anemia (Acute) Decubitus ulcer of ankle, stage 2 (Acute) Debility (Acute) Closed left ankle fracture (Acute) Hypokalemia (Acute) Aftercare following surgery of the musculoskeletal system, NEC (Acute) Closed fracture dislocation of left ankle joint (Acute) Physical debility (Acute) Acute medial meniscus tear of left knee (Resolved) 84 year old female with below past medical history hospitalized left ankle fracture, underwent ORIF left ankle fracture 07/09/2019 per , admitted to Inpatient Rehabilitation 07/10/2019, transferred to TCU with debility, here for rehabilitation, strengthening, prior to discharge home alone. * Debility - PT/OT. * Pain - Tylenol 1000MG Q8H. * Bowel - Miralax 17GM daily PRN, Senna/colace 2 tablets BID PRN, Dulcolax 10MG daily PRN. * Adult immunization - Administer Prevnar 13, Pneumovax 23, Fluzone as appropriate. * DVT prophylaxis - Lovenox 40MG SC daily. * Calcium deficiency - Calcium D 600/800IU daily. * Vitamin D deficiency - D3 1000IU daily. * Edema - Lasix 40MG twice daily. * Hypothyroidism - Levothyroxine 75MCG daily. * Hypokalemia - K-Dur 10MEQ twice daily. * Hypertension - Metoprolol succinate 25MG daily. * Skin irritation - Calmoseptine BID. * Tinea Corporis - Nystatin powder BID. * Left ankle cellulitis - Keflex 250MG Q12H thru 08/19/2019. * Right axillary abscess - Doxycycline 100MG daily thru 08/23/2019. * Left ankle fracture - status post ORIF, X-ray done yesterday, f/u Dr. De Luna regarding weight bearing status.
--- NOTE | 2019-08-19 12:15 | NURSING ---
wound photo: left foot/ anterior ankle
--- NOTE | 2019-08-19 12:17 | NURSING ---
wound photo: left lateral ankle
--- NOTE | 2019-08-19 13:39 | NURSING ---
warm compress applied to rt axilla. heena espinoza/estela meade. denies pain
[2019-08-19 14:00] VITALS: BP 114/36; PULSE 74; RESP 16; TEMP 36.9; O2SAT 91
[2019-08-20] MEDS: Enoxaparin 40 MG/0.4 ML Syringe SC (06:40)
[2019-08-20] MEDS: Levothyroxine 75 MCG Tablet PO (06:40)
[2019-08-20] MEDS: Acetaminophen 500 MG Tablet 1000 MG PO ×3 (06:40→20:34)
[2019-08-20 06:44] VITALS: BP 127/48; PULSE 67
[2019-08-20] MEDS: Metoprolol(XL)Succ 25 MG Tablet PO (06:44)
[2019-08-20] MEDS: Doxycycline 100 MG CAPSULE PO (06:44)
[2019-08-20] MEDS: Furosemide 40 MG Tablet PO ×2 (06:44→14:28)
[2019-08-20] MEDS: Menthol/Lanolin/Calamine/Znox 113 GM Tube 1 APPLIC TOPICAL ×2 (06:48→20:33)
[2019-08-20] MEDS: Nystatin Powder 15gm Bottle 1 APPLIC TOPICAL ×2 (06:49→20:34)
[2019-08-20] MEDS: Calcium Carb/Vitamin D 1 TABLET Tablet PO (08:42)
[2019-08-20 14:15] VITALS: BP 112/42; PULSE 63; RESP 18; TEMP 37.2; O2SAT 94
[2019-08-21 06:00] VITALS: BP 114/84; PULSE 71
[2019-08-21] MEDS: Furosemide 40 MG Tablet PO ×2 (06:00→12:51)
[2019-08-21] MEDS: Acetaminophen 500 MG Tablet 1000 MG PO ×3 (06:00→21:11)
[2019-08-21] MEDS: Nystatin Powder 15gm Bottle 1 APPLIC TOPICAL ×2 (06:00→21:12)
[2019-08-21] MEDS: Doxycycline 100 MG CAPSULE PO (06:00)
[2019-08-21] MEDS: Enoxaparin 40 MG/0.4 ML Syringe SC (06:00)
[2019-08-21] MEDS: Metoprolol(XL)Succ 25 MG Tablet PO (06:00)
[2019-08-21] MEDS: Menthol/Lanolin/Calamine/Znox 113 GM Tube 1 APPLIC TOPICAL ×2 (06:00→21:12)
[2019-08-21] MEDS: Levothyroxine 75 MCG Tablet PO (06:00)
[2019-08-21] MEDS: Calcium Carb/Vitamin D 1 TABLET Tablet PO (08:00)
--- NOTE | 2019-08-21 12:27 | NURSING ---
Spoke with Dr. Martin's office. Received verbal order that patient is weight bearing as tolerated with walking boot.
[2019-08-21 13:35] VITALS: BP 119/41; PULSE 78; RESP 16; TEMP 36.6; O2SAT 92
[2019-08-22] MEDS: Doxycycline 100 MG CAPSULE PO (06:19)
[2019-08-22 06:20] VITALS: BP 117/58; PULSE 62
[2019-08-22] MEDS: Furosemide 40 MG Tablet PO ×2 (06:20→13:50)
[2019-08-22] MEDS: Levothyroxine 75 MCG Tablet PO (06:20)
[2019-08-22] MEDS: Metoprolol(XL)Succ 25 MG Tablet PO (06:20)
[2019-08-22] MEDS: Acetaminophen 500 MG Tablet 1000 MG PO ×3 (06:20→21:13)
[2019-08-22] MEDS: Enoxaparin 40 MG/0.4 ML Syringe SC (06:21)
[2019-08-22] MEDS: Menthol/Lanolin/Calamine/Znox 113 GM Tube 1 APPLIC TOPICAL ×2 (06:24→21:14)
[2019-08-22] MEDS: Nystatin Powder 15gm Bottle 1 APPLIC TOPICAL ×2 (06:24→21:15)
[2019-08-22] MEDS: Calcium Carb/Vitamin D 1 TABLET Tablet PO (07:50)
--- NOTE | 2019-08-22 13:35 | CASEMGMT ---
Social Work Met with pt to discuss DC plans and changes to TCU. Explained to pt that DC date set with therapy recommendations for 09/03. Pt agreeable and agreeable to HHC or potential SNF if pt does not feel strong enough to go home. Pt to choose HHC-PT/OT. Gabbi Black, social work biology internship Lexi Suresh, GLASS CARRIER VAUDEVILLE ACTOR
[2019-08-22 13:50] VITALS: BP 127/61; PULSE 74; RESP 16; TEMP 36.9; O2SAT 93
--- NOTE | 2019-08-22 15:25 | DCINST_ITS ---
- Discharge Diagnoses Current Active Problems: Current Active and Chronic Problems (Last Reviewed 07/11/19 @ 10:[address] Cecille Brito, DO) Debility (Acute) Closed left ankle fracture (Acute) Pulmonary hypertension (Chronic) Hypertension (Chronic) Aortic stenosis (Chronic) Anemia (Chronic) Edema (Chronic) Hypothyroidism (Chronic) Hypokalemia (Acute) You will use the following diet at home:: No restrictions, Regular Your food should be the consistency of: Regular Your liquids should be the consistency of: Regular/Thin Discharge Activity: Return to Normal Activity, May Shower, Use Walker Weight Bearing Status: Weight bearing as tolerated Call your doctor if you observe: Fever of 101 or Higher, Inability to urinate, Inability to have a bowel movement, Shortness of breath, Chest pain, Uncontrolled pain Allergies/Adverse Reactions: Allergies aspirin Allergy (Verified 07/09/19 07:06) made my blood too thin hydrocodone [From Vicodin] Allergy (Verified 07/09/19 12:10) feels like getting high niacin Adverse Reaction (Verified 07/09/19 07:06) severe sweating simvastatin Adverse Reaction (Verified 07/09/19 07:06) muscle aches Medications to take at Discharge Calcium Carbonate/Vitamin D3 [Calcium 600-Vit D3 800 Tablet] 1 tab PO DAILY 06/30/19 Cholecalciferol (VIT D3) [Vitamin D3] 1,000 unit PO DAILY 06/30/19 Furosemide [Lasix] 40 mg PO BID 06/30/19 Levothyroxine [Synthroid] 75 mcg PO DAILY 06/30/19 Multivitamin with Minerals [One Daily Plus Minerals] 1 tab PO DAILY 06/30/19 [place]-3 Fatty Acids [Fish Oil] 2 tab PO DAILY 06/30/19 Potassium Chloride [K-Dur] 10 meq PO BID 06/30/19 Psyllium [Metamucil] 1 packet PO DAILY 06/30/19 Acetaminophen [Tylenol] 1,000 mg PO Q8 07/10/19 Metoprolol Succinate 25 mg PO DAILY #0 07/10/19 Menthol/Lanolin/Calamine/Znox [Calmoseptine Ointment] 1 applic TOPICAL BID 07/25/19 Nystatin Powder [Mycostatin Powder] 1 applic TOPICAL BID 07/25/19 Acetaminophen [Tylenol] 1,000 mg PO Q8 tab 08/22/19 Calcium Carb/Vitamin D [Os-Mikael 500MG + D] 1 tab PO DAILY@0800 tab 08/22/19 Cholecalciferol (VIT D3) [Vitamin D3] 1,000 unit PO DAILY tab 08/22/19 Furosemide [Lasix] 40 mg PO 0600,1400 tab 08/22/19 Levothyroxine [Synthroid] 75 mcg PO DAILY@0600 tab 08/22/19 Menthol/Lanolin/Calamine/Znox [Calmoseptine Ointment] 1 applic TOPICAL 0600,2200 tube 08/22/19 Metoprolol(XL)Succ [Toprol Xl (Beta Evelio)] 25 mg PO DAILY tab 08/22/19 Nystatin Powder [Mycostatin Powder] 1 applic TOPICAL 0600,2200 bottle 08/22/19 Potassium Chloride [K-Dur] 10 meq PO BIDCM tab 08/22/19 Primary Care Physician: Jimbo Koch III, MD [Primary Care Provider] - Please follow up with your Primary Care Physician in: 1 week. Test Results: Test results from this visit will be discussed in further detail at your follow- up appointment, if applicable. Please Follow Up With: When: suppose to see pt here on TCU 08/18 Please Follow Up With: Dr. Paul Please Follow Up With: Jimbo Koch MD When: after d/c from TCU Proposed Discharge Date: 09/04/19
--- NOTE | 2019-08-22 15:26 | DS.PCM_ITS ---
Discharge Date and Diagnosis - Problem List Patient Problems: Active and Suspected Problems (Last Reviewed 07/11/19 @ 10:[address] Cecille Brito DO) Debility (Acute) Closed left ankle fracture (Acute) Hypokalemia (Acute) Date of Admission: 07/25/19 Date of Discharge: 09/04/19 - Primary Discharge Diagnosis Active and Suspected Problems (Last Reviewed 07/11/19 @ 10:[address] Cecille Brito DO) Debility (Acute) Closed left ankle fracture (Acute) Hypokalemia (Acute) - Secondary Discharge Diagnosis Chronic Problems (Last Reviewed 07/11/19 @ 10:[address] 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 Paul Grade I diastolic dysfunction (Chronic) Secondary pulmonary arterial hypertension (Chronic) Estimated PA systolic in April 2018 was 42 mmHg. Chronic diastolic (congestive) heart failure (Chronic) Essential (primary) hypertension (Chronic) Non-rheumatic aortic stenosis (Chronic) AVR 05/06/12 History of aortic valve replacement with bioprosthetic valve (Chronic 05/06/12) AVR with #[facility] 05/06/12 Hospital Course and Treatment Imaging Results: 07/25/19 14:48 Diet: Regular Diet Clinical Impression(s) from Imaging Studies Ankle X-Ray 08/18/19 08:12 IMPRESSION: Status post open reduction internal fixation of the distal fibular fracture utilizing screw in plate fixation. There is good alignment. Electronically Signed: Robert Berger, at 8:42 EDT , Service support , Consultations 08/19/19 11:18 Consult: Onc/Wound/smart energy specialist Routine Comment: Reason for Consult:: redness to incision Comments:: has had tape blisters Operations: None, - - closed reduction of left trimalleolar fracture with dislocation Procedures: None Summary of Care Provided: The patient is a 84 year old Female with below past medical history hospitalized left ankle fracture, underwent ORIF left ankle fracture 07/09/2019 per , admitted to Inpatient Rehabilitation 07/10/2019, transferred to TCU with debility, here for rehabilitation, strengthening, prior to discharge home alone. Discharge home alone, [facility] PT/OT. Patient Problems: Active and Suspected Problems (Last Reviewed 07/11/19 @ 10:[address] Cecille Brito, DO) Debility (Acute) Closed left ankle fracture (Acute) Hypokalemia (Acute) - Physical Exam Vitals/I&O's: Vital Signs Temp Pulse Resp BP Pulse Ox 98.5 F 74 16 127/61 H 93 08/22/19 13:50 08/22/19 13:50 08/22/19 13:50 08/22/19 13:50 08/22/19 13:50 Oxygen Delivery Method Room Air Weight: 79.577 kg Body Mass Index (BMI) 31.4 Intake and Output for Last 24 Hours 08/20/19 08/21/19 08/22/19 23:59 23:59 23:59 Intake Total 720 / 720 840 / 840 480 / 480 Balance 720 / 720 840 / 840 480 / 480 Current Medications Acetaminophen (Tylenol) 1,000 mg PO Q8 [facility] Last Admin: 08/22/19 13:50 Dose: 1,000 mg Documented by: Bisacodyl (Dulcolax) 10 mg PO DAILY PRN PRN Reason: Constipation Calamine/Phenol (Calmoseptine Ointment) 1 applic TOPICAL 0600,2200 [facility]; Protocol Last Admin: 08/22/19 06:24 Dose: 1 applicatio Documented by: Calcium/Vitamin D (Os-Mikael 500mg + D) 1 tablet PO DAILY@0800 [facility] Last Admin: 08/22/19 07:50 Dose: 1 tablet Documented by: Cholecalciferol (Vitamin D (25mcg)) 1,000 unit PO DAILY [facility] Last Admin: 08/22/19 06:20 Dose: 1,000 unit Documented by: Doxycycline Monohydrate (Doxycycline) 100 mg PO DAILY [facility] Stop: 08/23/19 10:01 Last Admin: 08/22/19 06:19 Dose: 100 mg Documented by: Enoxaparin Sodium (Lovenox) 40 mg SC DAILY@0600 [facility] Last Admin: 08/22/19 06:21 Dose: 40 mg Documented by: Furosemide (Lasix) 40 mg PO 0600,1400 [facility] Last Admin: 08/22/19 13:50 Dose: 40 mg Documented by: Levothyroxine Sodium (Synthroid) 75 mcg PO DAILY@0600 [facility] Last Admin: 08/22/19 06:20 Dose: 75 mcg Documented by: Metoprolol Succinate (Toprol Xl (Beta Evelio)) 25 mg PO DAILY [facility] Last Admin: 08/22/19 06:20 Dose: 25 mg Documented by: Nystatin (Mycostatin Powder) 1 applic TOPICAL 0600,2200 [facility]; Protocol Last Admin: 08/22/19 06:24 Dose: 1 applicatio Documented by: Polyethylene Glycol (Miralax) 17 gm PO DAILY PRN PRN PRN Reason: Constipation Potassium Chloride (K-Dur) 10 meq PO BIDCM [facility] Last Admin: 08/22/19 07:51 Dose: 10 meq Documented by: Senna/Docusate Sodium (Senokot-S, Treva-Colace) 2 tablet PO BID PRN PRN PRN Reason: Constipation Discharge Diet: No Restrictions Discharge Activity: Return to Normal Activity, May Shower, Use Walker Weight Bearing Status: Weight bearing as tolerated Call your doctor if you observe: Fever of 101 or Higher, Inability to urinate, Inability to have a bowel movement, Shortness of breath, Chest pain, Uncontrolled pain Home Medications: Medications to take at Discharge Calcium Carbonate/Vitamin D3 [Calcium 600-Vit D3 800 Tablet] 1 tab PO DAILY 06/30/19 Cholecalciferol (VIT D3) [Vitamin D3] 1,000 unit PO DAILY 06/30/19 Furosemide [Lasix] 40 mg PO BID 06/30/19 Levothyroxine [Synthroid] 75 mcg PO DAILY 06/30/19 Multivitamin with Minerals [One Daily Plus Minerals] 1 tab PO DAILY 06/30/19 Maxie-3 Fatty Acids [Fish Oil] 2 tab PO DAILY 06/30/19 Potassium Chloride [K-Dur] 10 meq PO BID 06/30/19 Psyllium [Metamucil] 1 packet PO DAILY 06/30/19 Acetaminophen [Tylenol] 1,000 mg PO Q8 07/10/19 Metoprolol Succinate 25 mg PO DAILY #0 07/10/19 Menthol/Lanolin/Calamine/Znox [Calmoseptine Ointment] 1 applic TOPICAL BID 07/25/19 Nystatin Powder [Mycostatin Powder] 1 applic TOPICAL BID 07/25/19 Acetaminophen [Tylenol] 1,000 mg PO Q8 tab 08/22/19 Calcium Carb/Vitamin D [Os-Mikael 500MG + D] 1 tab PO DAILY@0800 tab 08/22/19 Cholecalciferol (VIT D3) [Vitamin D3] 1,000 unit PO DAILY tab 08/22/19 Furosemide [Lasix] 40 mg PO 0600,1400 tab 08/22/19 Levothyroxine [Synthroid] 75 mcg PO DAILY@0600 tab 08/22/19 Menthol/Lanolin/Calamine/Znox [Calmoseptine Ointment] 1 applic TOPICAL 0600,2200 tube 08/22/19 Metoprolol(XL)Succ [Toprol Xl (Beta Evelio)] 25 mg PO DAILY tab 08/22/19 Nystatin Powder [Mycostatin Powder] 1 applic TOPICAL 0600,2200 bottle 08/22/19 Potassium Chloride [K-Dur] 10 meq PO BIDCM tab 08/22/19 Primary Care Physician: Jimbo Koch III, MD [Primary Care Provider] - Please follow up with your Primary Care Physician in: 1 week. Please Follow Up With: When: suppose to see pt here on TCU 08/18 Please Follow Up With: Dr. Paul Please Follow Up With: Jimbo Koch MD When: after d/c from TCU Disposition: Home with Home Health Minutes spent on discharge:: 35 Patient Condition:: Stable Medical Necessity - Tobacco Use Smoking Status: Never smoker Tobacco Use: Non-smoker Meaningful Use Info Meaningful Use Diagnoses (Choose all that apply): None applicable
--- NOTE | 2019-08-22 18:28 | NURSING ---
dressing changed per orders to left lower leg- pt states that it is getting better and looked good- no drainage
[2019-08-23] MEDS: Enoxaparin 40 MG/0.4 ML Syringe SC (06:24)
[2019-08-23] MEDS: Acetaminophen 500 MG Tablet 1000 MG PO ×3 (06:24→21:21)
[2019-08-23 06:25] VITALS: BP 112/64; PULSE 60
[2019-08-23] MEDS: Levothyroxine 75 MCG Tablet PO (06:25)
[2019-08-23] MEDS: Metoprolol(XL)Succ 25 MG Tablet PO (06:25)
[2019-08-23] MEDS: Doxycycline 100 MG CAPSULE PO (06:25)
[2019-08-23] MEDS: Furosemide 40 MG Tablet PO ×2 (06:25→13:58)
[2019-08-23] MEDS: Nystatin Powder 15gm Bottle 1 APPLIC TOPICAL ×2 (06:27→21:22)
[2019-08-23] MEDS: Menthol/Lanolin/Calamine/Znox 113 GM Tube 1 APPLIC TOPICAL ×2 (06:30→21:21)
[2019-08-23] MEDS: Calcium Carb/Vitamin D 1 TABLET Tablet PO (08:08)
[2019-08-23 14:56] VITALS: BP 125/50; PULSE 80; RESP 16; TEMP 36.5; O2SAT 93
[2019-08-24] MEDS: Enoxaparin 40 MG/0.4 ML Syringe SC (06:22)
[2019-08-24 06:23] VITALS: BP 119/82; PULSE 69
[2019-08-24] MEDS: Metoprolol(XL)Succ 25 MG Tablet PO (06:23)
[2019-08-24] MEDS: Acetaminophen 500 MG Tablet 1000 MG PO ×3 (06:23→21:18)
[2019-08-24] MEDS: Levothyroxine 75 MCG Tablet PO (06:23)
[2019-08-24] MEDS: Furosemide 40 MG Tablet PO ×2 (06:23→14:51)
[2019-08-24] MEDS: Menthol/Lanolin/Calamine/Znox 113 GM Tube 1 APPLIC TOPICAL ×2 (06:24→21:19)
[2019-08-24] MEDS: Nystatin Powder 15gm Bottle 1 APPLIC TOPICAL ×2 (06:24→21:19)
[2019-08-24] MEDS: Calcium Carb/Vitamin D 1 TABLET Tablet PO (07:32)
[2019-08-24 08:22] VITALS: PULSE 90; RESP 16; O2SAT 96
[2019-08-24 15:04] VITALS: BP 120/65; PULSE 85; RESP 20; TEMP 36.7; O2SAT 96
[2019-08-25 06:19] VITALS: BP 115/70; PULSE 70
[2019-08-25] MEDS: Levothyroxine 75 MCG Tablet PO (06:19)
[2019-08-25] MEDS: Metoprolol(XL)Succ 25 MG Tablet PO (06:19)
[2019-08-25] MEDS: Enoxaparin 40 MG/0.4 ML Syringe SC (06:19)
[2019-08-25] MEDS: Furosemide 40 MG Tablet PO ×2 (06:19→14:37)
[2019-08-25] MEDS: Acetaminophen 500 MG Tablet 1000 MG PO ×3 (06:19→20:39)
[2019-08-25] MEDS: Nystatin Powder 15gm Bottle 1 APPLIC TOPICAL ×2 (06:21→20:39)
[2019-08-25] MEDS: Menthol/Lanolin/Calamine/Znox 113 GM Tube 1 APPLIC TOPICAL ×2 (06:21→20:40)
[2019-08-25] MEDS: Calcium Carb/Vitamin D 1 TABLET Tablet PO (07:37)
--- NOTE | 2019-08-25 13:53 | CASEMGMT ---
Social Work Met with pt to discuss DC plans. Asked pt if she felt comfortable with 09/03 DC. Pt felt she was ready, but that she would like Physician to f/u with her 08/28 for secondary opinion on incision and healing. Pt also wanting therapy to make her independent to go to the bathroom to build confidence, pt to talk to therapy about this. Pt feels she will be safe to DC home and will not need a SNF upon DC. Pt to choose C agency preference, provided pt with list of [facility] agencies. Gabbi Black, social work spring intern Lexi Suresh, OCCUPATIONAL HEALTH NURSING DIRECTOR BUTT WELDER
[2019-08-25 14:10] VITALS: BP 109/78; PULSE 71; RESP 18; TEMP 36.6
[2019-08-26] MEDS: Enoxaparin 40 MG/0.4 ML Syringe SC (06:19)
[2019-08-26] MEDS: Acetaminophen 500 MG Tablet 1000 MG PO ×3 (06:19→20:32)
[2019-08-26 06:20] VITALS: BP 118/34; PULSE 60
[2019-08-26] MEDS: Furosemide 40 MG Tablet PO ×2 (06:20→13:32)
[2019-08-26] MEDS: Levothyroxine 75 MCG Tablet PO (06:20)
[2019-08-26] MEDS: Metoprolol(XL)Succ 25 MG Tablet PO (06:20)
[2019-08-26] MEDS: Menthol/Lanolin/Calamine/Znox 113 GM Tube 1 APPLIC TOPICAL ×2 (06:22→20:34)
[2019-08-26] MEDS: Nystatin Powder 15gm Bottle 1 APPLIC TOPICAL ×2 (06:22→20:34)
[2019-08-26] MEDS: Calcium Carb/Vitamin D 1 TABLET Tablet PO (08:29)
--- NOTE | 2019-08-26 08:37 | NURSING ---
wound photo: left lateral ankle
--- NOTE | 2019-08-26 08:38 | NURSING ---
wound photo: left anteromedial ankle (healed)
[2019-08-26 13:33] VITALS: PULSE 68; RESP 16; O2SAT 94
[2019-08-26 14:03] VITALS: BP 134/42; PULSE 68; RESP 14; TEMP 36.7; O2SAT 92
[2019-08-27] MEDS: Enoxaparin 40 MG/0.4 ML Syringe SC (06:13)
[2019-08-27] MEDS: Furosemide 40 MG Tablet PO ×2 (06:13→14:41)
[2019-08-27] MEDS: Acetaminophen 500 MG Tablet 1000 MG PO ×3 (06:13→21:03)
[2019-08-27 06:14] VITALS: BP 106/41; PULSE 60
[2019-08-27] MEDS: Metoprolol(XL)Succ 25 MG Tablet PO (06:14)
[2019-08-27] MEDS: Levothyroxine 75 MCG Tablet PO (06:14)
[2019-08-27] MEDS: Nystatin Powder 15gm Bottle 1 APPLIC TOPICAL ×2 (06:16→21:03)
[2019-08-27] MEDS: Menthol/Lanolin/Calamine/Znox 113 GM Tube 1 APPLIC TOPICAL ×2 (06:17→21:04)
[2019-08-27] MEDS: Calcium Carb/Vitamin D 1 TABLET Tablet PO (07:33)
--- NOTE | 2019-08-27 12:04 | CASEMGMT ---
Social Work Met with pt to discuss DC plans. Gave pt list of [facility] agencies, pt requesting [facility]-PT/OT/SN-referral made. Pt asked when f/u appointments would be, informed pt nursing would explain appts at DC. Pt informed SWI that physician was in to see incision on left foot for second opinion and confirmed pt safe to go home-pt agreeable. Plan: DC home alone 09/03, [facility]-PT/OT/SN, no DME needs Gabbi Black, social work risk management intern Lexi Suresh, FISHERY DIVISION CHIEF FURNACE PROCESS SUPERVISOR
[2019-08-27 14:02] VITALS: BP 130/68; PULSE 69; RESP 15; TEMP 36.7; O2SAT 95
--- NOTE | 2019-08-27 14:06 | CASEMGMT ---
Social Work Reviewed and agreed with social work culinary intern documentation on this date. Lexi Suresh, SPRAY DRIER OPERATOR OUTPATIENT PHARMACY MANAGER
[2019-08-28 06:04] VITALS: BP 122/78; PULSE 62
[2019-08-28] MEDS: Enoxaparin 40 MG/0.4 ML Syringe SC (06:04)
[2019-08-28] MEDS: Metoprolol(XL)Succ 25 MG Tablet PO (06:04)
[2019-08-28] MEDS: Furosemide 40 MG Tablet PO ×2 (06:05→13:17)
[2019-08-28] MEDS: Levothyroxine 75 MCG Tablet PO (06:05)
[2019-08-28] MEDS: Acetaminophen 500 MG Tablet 1000 MG PO ×3 (06:05→21:10)
[2019-08-28] MEDS: Menthol/Lanolin/Calamine/Znox 113 GM Tube 1 APPLIC TOPICAL ×2 (06:08→21:11)
[2019-08-28] MEDS: Nystatin Powder 15gm Bottle 1 APPLIC TOPICAL ×2 (06:08→21:11)
[2019-08-28 06:19] LABS: Absolute Neutrophil Count 2.6 X10^3/uL (2.0-7.7); Basophil# 0.04 X10^3/uL; Basophil% 0.7 % (0-1); Eosinophil# 0.27 X10^3/uL; Eosinophils% 4.8 % (0-5); Hemoglobin 12.3 g/dL (12.0-15.0); Lymphocyte % 37.4 % (19-41); Mean Corp Hgb Conc 31.5 g/dL (32-36); Mean Corpuscular Volume 101.6 fL (81-99); Mean Platelet Vol. 9.9 fl (6.2-12.0); Monocyte# 0.61 X10^3/uL; Monocyte% 10.9 % (0-10); NRBC Flagged by Analyzer 0 % (0-5); Neutrophil # 2.59 X10^3/uL (2.7-7.7); Platelet Count 222 K/mm3 (150-450); RBC Distribution Width CV 13.9 % (11.6-14.6); RBC Distribution Width SD 51.5 fl (35.1-43.9); Red Blood Count 3.84 M/mm3 (4.2-5.4); White Blood Count 5.6 K/mm3 (4.4-11.0)
[2019-08-28 06:48] LABS: Anion Gap 3 (5-15); BUN 21 mg/dL (7-18); BUN/Creat Ratio 23.8 RATIO (10-20); Calcium,Total 8.9 mg/dL (8.5-10.1); Chloride 102 mmol/L (98-107); Creatinine, Serum 0.88 mg/dL (0.55-1.02); EST Glomerular Filtration Rate 65 mL/min (>60); Est Glom Filt Rate - Afr Amer 79 mL/min (>60); Estimated Creatinine Clearance 38.98 ml/min; Glucose 89 mg/dL (74-106); Potassium 4.2 mmol/L (3.5-5.1); Sodium Level 140 mmol/L (136-145)
[2019-08-28] MEDS: Calcium Carb/Vitamin D 1 TABLET Tablet PO (07:40)
--- NOTE | 2019-08-28 08:12 | PCA ---
AM care: Helped pt transfer from bed to wheelchair, wheelchair with walker SPT in bathroom onto toilet, set pt up with wash basin and hygiene products along with clothes, pt washed upper half and dressed self, i washed ferdinand area and applied a fresh attends onto pt, assisted in a SPT from toilet back to wheelchair, pt brushed hair and teeth at sink, assisted with SPT from the wheelchair to the recliner chair.
--- NOTE | 2019-08-28 14:29 | CASEMGMT ---
Social Work MOLST form completed with patient. Copy placed on chart. Lexi Suresh, HOOK TENDER HIGH LIFT DRIVER
[2019-08-28 14:32] VITALS: BP 111/68; PULSE 94; RESP 18; TEMP 36.6; O2SAT 97
[2019-08-29] MEDS: Levothyroxine 75 MCG Tablet PO (06:14)
[2019-08-29] MEDS: Furosemide 40 MG Tablet PO ×2 (06:14→13:41)
[2019-08-29] MEDS: Acetaminophen 500 MG Tablet 1000 MG PO ×3 (06:14→21:07)
[2019-08-29 06:15] VITALS: BP 112/71; PULSE 70
[2019-08-29] MEDS: Metoprolol(XL)Succ 25 MG Tablet PO (06:15)
[2019-08-29] MEDS: Menthol/Lanolin/Calamine/Znox 113 GM Tube 1 APPLIC TOPICAL ×2 (06:15→21:08)
[2019-08-29] MEDS: Nystatin Powder 15gm Bottle 1 APPLIC TOPICAL ×2 (06:15→21:08)
[2019-08-29] MEDS: Calcium Carb/Vitamin D 1 TABLET Tablet PO (08:56)
[2019-08-29 14:16] VITALS: BP 112/68; PULSE 83; RESP 18; TEMP 36.9; O2SAT 100
--- NOTE | 2019-08-29 16:46 | NURSING ---
THIS NURSE IS AWARE OF VITALS TAKEN THIS AFTERNOON AT 1416.
[2019-08-30] MEDS: Levothyroxine 75 MCG Tablet PO (06:28)
[2019-08-30] MEDS: Acetaminophen 500 MG Tablet 1000 MG PO ×3 (06:28→20:24)
[2019-08-30 06:29] VITALS: BP 112/63; PULSE 62
[2019-08-30] MEDS: Menthol/Lanolin/Calamine/Znox 113 GM Tube 1 APPLIC TOPICAL ×2 (06:29→20:23)
[2019-08-30] MEDS: Metoprolol(XL)Succ 25 MG Tablet PO (06:29)
[2019-08-30] MEDS: Nystatin Powder 15gm Bottle 1 APPLIC TOPICAL ×2 (06:29→20:23)
[2019-08-30] MEDS: Furosemide 40 MG Tablet PO ×2 (06:29→14:36)
[2019-08-30] MEDS: Calcium Carb/Vitamin D 1 TABLET Tablet PO (08:30)
[2019-08-30 13:41] VITALS: BP 112/68; PULSE 76; RESP 16; TEMP 36.7; O2SAT 93
[2019-08-31] MEDS: Nystatin Powder 15gm Bottle 1 APPLIC TOPICAL ×2 (06:42→20:42)
[2019-08-31] MEDS: Menthol/Lanolin/Calamine/Znox 113 GM Tube 1 APPLIC TOPICAL ×2 (06:42→20:42)
[2019-08-31 06:43] VITALS: BP 110/68; PULSE 60
[2019-08-31] MEDS: Metoprolol(XL)Succ 25 MG Tablet PO (06:43)
[2019-08-31] MEDS: Furosemide 40 MG Tablet PO ×2 (06:43→14:12)
[2019-08-31] MEDS: Acetaminophen 500 MG Tablet 1000 MG PO ×3 (06:43→20:41)
[2019-08-31] MEDS: Levothyroxine 75 MCG Tablet PO (06:44)
[2019-08-31] MEDS: Calcium Carb/Vitamin D 1 TABLET Tablet PO (08:50)
[2019-08-31 15:01] VITALS: BP 136/61; PULSE 72; RESP 14; TEMP 36.6; O2SAT 93
[2019-09-01] MEDS: Furosemide 40 MG Tablet PO ×2 (06:38→13:04)
[2019-09-01] MEDS: Levothyroxine 75 MCG Tablet PO (06:38)
[2019-09-01] MEDS: Acetaminophen 500 MG Tablet 1000 MG PO ×3 (06:38→21:00)
[2019-09-01 06:39] VITALS: BP 115/40; PULSE 61
[2019-09-01] MEDS: Menthol/Lanolin/Calamine/Znox 113 GM Tube 1 APPLIC TOPICAL ×2 (06:39→21:01)
[2019-09-01] MEDS: Metoprolol(XL)Succ 25 MG Tablet PO (06:39)
[2019-09-01] MEDS: Nystatin Powder 15gm Bottle 1 APPLIC TOPICAL ×2 (06:39→21:00)
[2019-09-01] MEDS: Calcium Carb/Vitamin D 1 TABLET Tablet PO (07:36)
[2019-09-01 07:40] VITALS: PULSE 66; RESP 18; O2SAT 93
[2019-09-01 14:26] VITALS: BP 123/75; PULSE 87; RESP 18; TEMP 36.6; O2SAT 95
[2019-09-02] MEDS: Acetaminophen 500 MG Tablet 1000 MG PO ×3 (06:25→20:25)
[2019-09-02 06:26] VITALS: BP 115/70; PULSE 72
[2019-09-02] MEDS: Levothyroxine 75 MCG Tablet PO (06:26)
[2019-09-02] MEDS: Nystatin Powder 15gm Bottle 1 APPLIC TOPICAL ×2 (06:26→20:26)
[2019-09-02] MEDS: Furosemide 40 MG Tablet PO ×2 (06:26→13:54)
[2019-09-02] MEDS: Metoprolol(XL)Succ 25 MG Tablet PO (06:26)
[2019-09-02] MEDS: Menthol/Lanolin/Calamine/Znox 113 GM Tube 1 APPLIC TOPICAL ×2 (06:27→20:26)
[2019-09-02] MEDS: Calcium Carb/Vitamin D 1 TABLET Tablet PO (07:27)
[2019-09-02 08:46] VITALS: PULSE 71; RESP 18; O2SAT 96
[2019-09-02 14:13] VITALS: BP 113/66; PULSE 82; RESP 18; TEMP 37; O2SAT 98
--- NOTE | 2019-09-02 15:37 | CHAPLAIN ---
Type of Pastoral Visit ___ Initial Visit _x__ Follow-up Visit ___ On-call Visit ___ General Patient Visit ___ Spiritual Assessment ___ Family Conference ___ Bereavement ___ Rapid Response ___ Code Blue ___ Other (describe below) Pastoral Care Referral From _x__ Patient ___ Family ___ Nurse ___ Physician ___ Button Cutting Machine Operator ___ Take Out Waiter ___ Other (describe below) Sacrament/Intervention _x__ Active listening ___ Anointing ___ Pentecostal ___ Bereavement ___ Communion ___ Nakita exploration ___ ___ Life review ___ Prayer ___ Reconciliation ___ Sacrament of Sick ___ Supportive presence ___ Wedding ___ Other (describe below) Pastoral Comments
[2019-09-03] MEDS: Menthol/Lanolin/Calamine/Znox 113 GM Tube 1 APPLIC TOPICAL ×2 (06:50→20:23)
[2019-09-03] MEDS: Nystatin Powder 15gm Bottle 1 APPLIC TOPICAL ×2 (06:50→20:23)
[2019-09-03 06:51] VITALS: BP 113/51; PULSE 55
[2019-09-03] MEDS: Metoprolol(XL)Succ 25 MG Tablet PO (06:51)
[2019-09-03] MEDS: Levothyroxine 75 MCG Tablet PO (06:52)
[2019-09-03] MEDS: Acetaminophen 500 MG Tablet 1000 MG PO ×3 (06:52→20:22)
[2019-09-03] MEDS: Furosemide 40 MG Tablet PO ×2 (06:52→14:51)
[2019-09-03] MEDS: Calcium Carb/Vitamin D 1 TABLET Tablet PO (12:02)
[2019-09-03 13:28] VITALS: BP 98/31; PULSE 74; RESP 17; TEMP 36.9; O2SAT 92
[2019-09-04] MEDS: Menthol/Lanolin/Calamine/Znox 113 GM Tube 1 APPLIC TOPICAL (06:10)
[2019-09-04] MEDS: Nystatin Powder 15gm Bottle 1 APPLIC TOPICAL (06:10)
[2019-09-04] MEDS: Furosemide 40 MG Tablet PO (06:11)
[2019-09-04] MEDS: Acetaminophen 500 MG Tablet 1000 MG PO (06:11)
[2019-09-04] MEDS: Levothyroxine 75 MCG Tablet PO (06:12)
[2019-09-04 06:14] VITALS: BP 105/42; PULSE 50
[2019-09-04 07:55] VITALS: PULSE 68
[2019-09-04] MEDS: Metoprolol(XL)Succ 25 MG Tablet PO (07:55)
[2019-09-04] MEDS: Calcium Carb/Vitamin D 1 TABLET Tablet PO (07:55)
[2019-09-04 09:28] VITALS: PULSE 68; RESP 16; O2SAT 95
--- NOTE | 2019-09-04 09:32 | NURSING ---
Contacted Dr. De Luna's and spoke with her nurse, requesting if pt needed to continue to have dressing change to L ankle at home, the nurse stated that the pt does not need a dressing unless she wants to apply a padding for comfort when wearing the walking boot.
== END 2019-09-04 10:19 | disposition home health service (06) | DRG 560 ==
PROVIDERS: Admitting Provider Family Medicine Geriatric Medicine; PCP Family Medicine; Referring Provider Family Medicine Geriatric Medicine; Visit Provider Family Medicine Geriatric Medicine
DX: S82.892D Other fracture of left lower leg, subsequent encounter for closed fracture with routine healing (principal); I50.32 Chronic diastolic (congestive) heart failure; L03.116 Cellulitis of left lower limb; L02.411 Cutaneous abscess of right axilla; W19.XXXD Unspecified fall, subsequent encounter; I11.0 Hypertensive heart disease with heart failure; G47.33 Obstructive sleep apnea (adult) (pediatric); E03.9 Hypothyroidism, unspecified; I27.21 Secondary pulmonary arterial hypertension; Z95.3 Presence of xenogenic heart valve; E66.9 Obesity, unspecified; Z68.31 Body mass index [BMI] 31.0-31.9, adult; B35.4 Tinea corporis; E55.9 Vitamin D deficiency, unspecified; E87.6 Hypokalemia; Z23 Encounter for immunization; L89.502 Pressure ulcer of unspecified ankle, stage 2
CPT/HCPCS: 36415; 73610; 80048; 83735; 85025; 97110; 97116; 97162; 97166; 97530; 97535; 97802; G0009; 90670

== ENCOUNTER → 2019-09-16 09:24 | Outpatient (CLI) | payer MEDICARE, OTHER, SELFPAY ==
[2019-07-25 14:14] VITALS: BMI 31.4
--- NOTE | 2019-09-16 09:27 | RAD_ITS ---
STUDY: X-RAY - LEFT ANKLE REASON FOR EXAM: Postoperative checkup. TECHNIQUE: 3 view(s) of the ankle. COMPARISON: Radiographs 08/18/2019. FINDINGS: There is intact orthopedic hardware transfixing a distal fibular fracture in anatomic alignment and position with syndesmotic screws. There is a healing posterior malleolar fracture. There is a small ossicle at the distal aspect of the medial malleolus. Normal tibiotalar articulation and ankle mortise. Normal visualized talus and calcaneus. The visualized subtalar, talonavicular, calcaneocuboid and tarsal articulations are normal. The soft tissue structures are unremarkable. RAD/Ankle min 3 Views IMPRESSION: ORIF of distal fibular fracture without interval change. Electronically Signed: Clyde Irizarry MD at 9:59 EDT Tel , Service support ,
== END ==
PROVIDERS: PCP Family Medicine; Referring Provider Orthopaedic Surgery; Visit Provider Orthopaedic Surgery
DX: Z87.81 Personal history of (healed) traumatic fracture (principal); Z98.890 Other specified postprocedural states
CPT/HCPCS: 73610

== ENCOUNTER 2019-10-22 10:30 | Outpatient (RCR) | payer MEDICARE, OTHER, SELFPAY ==
[2019-09-16 10:25] VITALS: BMI 31.4
--- NOTE | 2019-10-01 13:49 | HP.PTEVAL_ITS ---
Patient's Visit Information JESSY DAIGLE is a 84 year old F referred to Physical Therapy by Dr. Ana Laura De Luna DO with a diagnosis of L ankle Fx with ORIF. Date of Evaluation: 10/01/19 Physical Therapist: PENG Bailey - Visit Plan Frequency: 2x /Week Duration: 3 Weeks Plan: Spoke with Dr Shannon vogel and she is able to get out of boot in a brace when able. 2X/ week for 3 weeks for L ankle AROM, PROM, strengthening, progressive weight bearing activities and balance. Pt may wean from the brace as able. ADD in HEP. - Subjective Pt was going down the basement steps and turned to see where her cat was and she did not turn her feet with her body. She was on the last step and she turned and the next thing she noticed was that she was on the floor. She has always had trouble with balance and her L side is her polio side. Her foot must have went under the last step when she fell and she was still holding onto the railing and when she pulled her foot out and her foot was off to the side and she could see the bone but it was not sticking out. She did not have her cell phone but she crawled about 20 feet to get to her phone and called the squad. They took her to the ER.... and they put it back into place and her foot was swelling. This was Jun 30. They had to wait for the swelling to go down and they did the surgery on 07-09-2019. They put a steel plate and 8 screws in her foot. She had a lot of blood blisters from the brake and they kept oozing. She reports that she has the walking boot now and a cane. She does not think that she has another appointment made. She was on TCU for awhile. - Pain L ankle Pain Intensity (Out of 10): 0 - Objective L ankle AROM: DF 8 degrees, 43 degrees PF, 10 degrees INV, 3 degrees eversion. L ankle MMT: DF 3-/5, PF 4-/5, INV 4-/5, EV 4-/5. Gait: walks with a staight cane with boot with decreased stance time on the L LE. Tight gastroc and HS on the L - Goals Goal 1:: I HEP Goal Time Frame: 4-6 Weeks Goal 2:: Increase L ankle AROM to neutral DF to aid in better walking mechanics Goal Time Frame: 4-6 Weeks Goal 3:: Be able to walk with no boot and no cane with no LOB Goal Time Frame: 4-6 Weeks Goal 4:: Increase L ankle strength by 1/2 muscle grade ( at the time of the eval: L ankle MMT: DF 3-/5, PF 4-/5, INV 4-/5, EV 4-/5) Goal Time Frame: 4-6 Weeks - Rehabilitation Potential Rehabilitation Potential: Good - Anticipated Interventions Patient/Client Instruction: Educate patient on: Condition, Plan of Care For the Purpose of:: To increase ROM, To improve muscle performance and motor function, To improve ability to perform ADL's, To increase tolerance to activity/condition/position, To improve performance and independence with ADL's, To decrease level of supervision to perform tasks, To improve ability of physical actions for home/community/work/leisure, To improve gait and locomotor functions, To improve health of tissue, To decrease soft tissue restriction, To increase flexibility/ROM, To improve balance, To improve safety with gait Therapeutic Exercise to Include: Strength training, Balance training, Flexibilty training, Gait and locomotor training, Passive ROM, Active ROM For the Purpose of:: To improve muscle performance and motor function, To improve ability to perform ADL's, To increase tolerance to activity/condition/position, To improve ability of physical actions for home/ community/work/leisure, To improve gait and locomotor functions, To improve health of tissue, To decrease soft tissue restriction, To increase flexibility/ROM Manual Therapy Techniques to Include: Passive ROM For the Purpose of:: To increase ROM, To increase flexibility/ROM Thank you for the opportunity to evaluate your patient. For Medicare and Medicare HMO plans, please review the plan of care and approve it. It will need to be FAXED BACK to us at [phone] for Medicare purposes. For Medicare only, by signing this I certify the plan of care. Please let me know if there are questions or concerns regarding this plan of care. Physician Signature: Date:
--- NOTE | 2019-10-22 12:00 | HP.PTDCSUM ---
It has been my pleasure to treat JESSY DAIGLE referred by Dr. Ana Laura De Luna DO, with the diagnosis of L ankle Fx with ORIF for a total of 7 visit(s). Discharge Date: 10/22/19 Please see the following information for a summary of their discharge status. Subjective: Pt reports that she was just walking outside in the yard with her sister and her cane and she did ok over the uneven ground. She reports that occassionally has a sharp pain in the achilles but it is not constant. She plans on coming back in November to do Health and wellness. L ankle Pain Intensity (Out of 10): 0 % Improvement: 90 Objective/Function: slightly tender along the L achilles tendon. L ankle MMT: DF 3+/5, PF 4/5, INV 4-/5, EV 4/5). L ankle DF 4 degrees Goal 1:: I HEP Goal Progress: Goal Met Goal 2:: Increase L ankle AROM to neutral DF to aid in better walking mechanics Goal Progress: Goal Met Goal 3:: Be able to walk with no boot and no cane with no LOB Goal Progress: Goal Met Goal 4:: Increase L ankle strength by 1/2 muscle grade ( at the time of the eval: L ankle MMT: DF 3-/5, PF 4-/5, INV 4-/5, EV 4-/5) Goal Progress: Progressing Plan: DC PT to HEP.... pt to continue with progressive gait, stretching of gastroc and strength at home. Discharge Comments: DC PT to HEP If there are questions or concerns regarding this patient's physical therapy, please feel free to call me at [phone]. Thank you for the referral of this patient. Sincerely, Maria Esther Winter, MPT
== END 2019-10-22 19:00 | disposition home or self-care (01) ==
LOC: PT 10:30
PROVIDERS: PCP Family Medicine; Referring Provider Orthopaedic Surgery; Visit Provider Orthopaedic Surgery
DX: Z98.890 Other specified postprocedural states (principal); S82.899D Other fracture of unspecified lower leg, subsequent encounter for closed fracture with routine healing
CPT/HCPCS: 73610; 97110; 97161; 97166; 97530

== ENCOUNTER → 2020-01-07 09:19 | Outpatient (CLI) | payer MEDICARE, OTHER, SELFPAY ==
[2019-07-25 14:14] VITALS: BMI 31.4
[2019-09-16 10:25] VITALS: BMI 31.4
[2020-01-07 10:15] LABS: Vitamin D,25 Hydroxy 68.4 ng/mL
[2020-01-07 10:25] LABS: ALB/GLOB Ratio 0.9 RATIO (0.9-2.4); AST(SGOT) 26 U/L (15-37); Alanine Aminotransfer ALT/SGPT 19 U/L (13-56); Albumin, Serum 3.3 g/dL (3.2-5.0); Alkaline Phosphatase 92 U/L (45-117); Anion Gap 3 (5-15); BUN 17 mg/dL (7-18); BUN/Creat Ratio 18.8 RATIO (10-20); Calcium,Total 9.2 mg/dL (8.5-10.1); Chloride 105 mmol/L (98-107); Cholesterol 242 mg/dL (200); EST Glomerular Filtration Rate 63 mL/min (>60); Est Glom Filt Rate - Afr Amer 77 mL/min (>60); Globulin 3.8 g/dL (2.2-4.2); Glucose 104 mg/dL (74-106); High Density Lipoprotein 72 mg/dL; Potassium 3.4 mmol/L (3.5-5.1); Protein, Total 7.1 g/dL (6.4-8.2); Sodium Level 142 mmol/L (136-145); Thyroid Stim Hormone (TSH) 1.43 uIU/mL (0.358-3.74); Triglycerides 166 mg/dL; Very Low Density Lipoprotein 33 mg/dL (5-40)
== END ==
PROVIDERS: PCP Family Medicine; Referring Provider Family Medicine; Visit Provider Family Medicine
DX: E78.5 Hyperlipidemia, unspecified (principal); E55.9 Vitamin D deficiency, unspecified; I10 Essential (primary) hypertension; E03.9 Hypothyroidism, unspecified
CPT/HCPCS: 36415; 80053; 80061; 82306; 84443

== ENCOUNTER → 2020-03-19 10:40 | Outpatient (CLI) | payer MEDICARE, OTHER, SELFPAY ==
[2020-02-24 11:02] VITALS: BMI 30.9
--- NOTE | 2020-03-19 10:41 | ECHOCS_ITS ---
Reason For Study: VALVE REPLACEMENT EVAL Procedure This was a 2D Doppler, Color Flow transthoracic echocardiogram. Exam performed in department. Left Ventricle Normal LV size. Left ventricular systolic function is normal. The estimated ejection fraction is 60 %. Stage 1 diastolic dysfunction. No regional wall motion abnormalities noted. Right Ventricle Normal RV size. Normal systolic function. Atria The left atrium is mildly enlarged. Normal right atrium. Mitral Valve There is mild mitral annular calcification. Mild (1+) eccentric mitral valve insufficiency. Tricuspid Valve Normal tricuspid valve. Mild tricuspid valve insufficiency. Pulmonary artery systolic pressure is 34 mmHg. Aortic Valve Peak aortic valve gradient 46 mmHg. Mean aortic valve gradient 28 mmHg. Bioprosthetic aortic valve. Pulmonic Valve Normal pulmonic valve. Great Vessels Normal aortic root. The pulmonary artery is normal size. Normal inferior vena cava. Pericardium/Pleural No pericardial effusion. Medication 22 gauge I.V. with prn adaptor inserted into left arm. Diluted definity 2ml given slow IV push to enhance endocardial definition. MMode/2D Measurements & Calculations LVIDd: 4.0 cm IVSd: 1.2 cm LVOT diam: 2.0 cm LVIDs: 2.8 cm LVPWd: 0.81 cm RVDd: 3.5 cm FS: 30.5 % LVOT area: 3.1 cm2 Ao root diam: 3.1 cm LAV(MOD-bp): 75.5 ml LVAd ap4: 20.7 cm2 LAV(MOD-bp) Indexed: 42.4 ml/m2 EDV(MOD-sp4): 55.0 ml LAV(MOD-sp2): 79.9 ml EDV(sp4-el): 58.0 ml LAV(MOD-sp4): 71.7 ml LVAs ap4: 11.3 cm2 ESV(MOD-sp4): 20.1 ml ESV(sp4-el): 19.7 ml EF(MOD-sp4): 63.5 % EF(sp4-el): 66.1 % SV(MOD-sp4): 34.9 ml SV(sp4-el): 38.3 ml LA A4 area: 21.3 cm2 LA dimension(2D): 4.2 cm RA A4 area: 16.6 cm2 Time Measurements MV dec time: 0.30 sec Doppler Measurements & Calculations MV E max gaudencio: 85.8 cm/sec Lat Peak E' Gaudencio: 4.2 cm/sec Med Peak E' Gaudencio: 5.6 cm/sec MV A max gaudencio: 104.2 cm/sec E/E' lat: 20.4 E/E' med: 15.3 MV E/A: 0.82 Ao V2 max: 339.8 cm/sec LV V1 max: 89.5 cm/sec SV(LVOT): 67.6 ml Ao max P.2 mmHg LV V1 max P.2 mmHg Ao V2 mean: 251.3 cm/sec LV V1 mean P.8 mmHg Ao mean P.0 mmHg LV V1 mean: 62.6 cm/sec Ao V2 VTI: 83.9 cm LV V1 VTI: 22.2 cm VICTORIANO(I,D): 0.81 cm2 VICTORIANO(V,D): 0.80 cm2 PA V2 max: 82.6 cm/sec TR max gaudnecio: 278.4 cm/sec TR max P.0 mmHg Interpretation Summary Normal LV size. Left ventricular systolic function is normal. The estimated ejection fraction is 60 %. Stage 1 diastolic dysfunction. Mean aortic valve gradient 28 mmHg. Bioprosthetic aortic valve. Compared to prior study, there is no significant change. Ordering Physician: Boyd Monsalve Referring Physician: Boyd Monsalve Performed By: Stephanie Mistry RDCS
== END ==
PROVIDERS: PCP Family Medicine; Referring Provider Internal Medicine Cardiovascular Disease; Visit Provider Internal Medicine Cardiovascular Disease
DX: T82.857A Stenosis of other cardiac prosthetic devices, implants and grafts, initial encounter (principal)
CPT/HCPCS: 93306; Q9957; A4216; C8929

== ENCOUNTER → 2020-08-19 10:16 | Outpatient (CLI) | payer MEDICARE, OTHER, SELFPAY ==
[2020-02-24 11:02] VITALS: BMI 30.9
[2020-08-19 12:09] LABS: Vitamin D,25 Hydroxy 59.8 ng/mL
[2020-08-19 12:12] LABS: ALB/GLOB Ratio 0.9 RATIO (0.9-2.4); AST(SGOT) 24 U/L (15-37); Alanine Aminotransfer ALT/SGPT 21 U/L (13-56); Albumin, Serum 3.5 g/dL (3.2-5.0); Alkaline Phosphatase 92 U/L (45-117); Anion Gap 6 (5-15); BUN 22 mg/dL (7-18); Chloride 102 mmol/L (98-107); Cholesterol 286 mg/dL (200); Creatinine, Serum 0.82 mg/dL (0.55-1.02); EST Glomerular Filtration Rate 71 mL/min (>60); Est Glom Filt Rate - Afr Amer 86 mL/min (>60); Glucose 85 mg/dL (74-106); High Density Lipoprotein 71 mg/dL; Potassium 3.6 mmol/L (3.5-5.1); Protein, Total 7.5 g/dL (6.4-8.2); Sodium Level 143 mmol/L (136-145); Thyroid Stim Hormone (TSH) 1.01 uIU/mL (0.358-3.74); Triglycerides 223 mg/dL; Very Low Density Lipoprotein 45 mg/dL (5-40)
== END ==
PROVIDERS: PCP Family Medicine; Visit Provider Family Medicine
DX: E55.9 Vitamin D deficiency, unspecified (principal); E78.5 Hyperlipidemia, unspecified; E03.9 Hypothyroidism, unspecified; E87.6 Hypokalemia; I10 Essential (primary) hypertension
CPT/HCPCS: 36415; 80053; 80061; 82306; 84443

== ENCOUNTER → 2021-03-23 11:49 | Outpatient (CLI) | payer MEDICARE, OTHER, SELFPAY ==
[2021-03-23 16:22] LABS: CRP < 2.90 mg/L (0.0-3.0)
[2021-03-26 13:07] LABS: Endomysial Antibody IgA Negative (Negative)
[2021-03-26 19:51] LABS: Immunoglobulin A 327 mg/dL (64-422); t-Transglutaminase IgA <2 U/mL (0-3)
== END ==
PROVIDERS: PCP Family Medicine; Referring Provider Internal Medicine Gastroenterology; Visit Provider Internal Medicine Gastroenterology
DX: R19.7 Diarrhea, unspecified (principal)
CPT/HCPCS: 36415; 82784; 83516; 86140; 86255

== ENCOUNTER 2021-07-14 08:21 | Outpatient (CLI) | payer MEDICARE, OTHER, SELFPAY ==
[2021-07-14 09:08] LABS: Absolute Lymphocyte Count 2.04 X10^3/uL (0.83-4.51); Absolute Neutrophil Count 4.9 X10^3/uL (2.0-7.7); Basophil# 0.06 X10^3/uL; Basophil% 0.8 % (0-1); Eosinophil# 0.18 X10^3/uL; Eosinophils% 2.3 % (0-5); Hematocrit 44.5 % (37-47); Hemoglobin 14.3 g/dL (12.0-15.0); Lymphocyte # 2.04 X10^3/ul (0.83-4.51); Mean Corp Hgb Conc 32.1 g/dL (32-36); Mean Corpuscular Hgb 32.1 pg (27.0-32.0); Mean Platelet Vol. 10.1 fl (6.2-12.0); Monocyte# 0.65 X10^3/uL; Monocyte% 8.3 % (0-10); NRBC Flagged by Analyzer 0 % (0-5); Neutrophil # 4.88 X10^3/uL (2.7-7.7); Neutrophil % 62.2 % (47-70); Platelet Count 236 K/mm3 (150-450); RBC Distribution Width SD 47.8 fl (35.1-43.9); Red Blood Count 4.45 M/mm3 (4.2-5.4); White Blood Count 7.8 K/mm3 (4.4-11.0)
[2021-07-14 09:43] LABS: ALB/GLOB Ratio 0.8 RATIO (0.9-2.4); AST(SGOT) 30 U/L (15-37); Alanine Aminotransfer ALT/SGPT 27 U/L (13-56); Albumin, Serum 3.6 g/dL (3.2-5.0); Alkaline Phosphatase 112 U/L (45-117); Anion Gap 4 (5-15); BUN 19 mg/dL (7-18); BUN/Creat Ratio 23.2 RATIO (10-20); Calcium,Total 9.5 mg/dL (8.5-10.1); Chloride 101 mmol/L (98-107); Cholesterol 250 mg/dL (200); Creatinine, Serum 0.82 mg/dL (0.55-1.02); EST Glomerular Filtration Rate 71 mL/min (>60); Est Glom Filt Rate - Afr Amer 86 mL/min (>60); Globulin 4.3 g/dL (2.2-4.2); Glucose 97 mg/dL (74-106); High Density Lipoprotein 73 mg/dL; Potassium 3.5 mmol/L (3.5-5.1); Protein, Total 7.9 g/dL (6.4-8.2); Sodium Level 140 mmol/L (136-145); Thyroid Stim Hormone (TSH) 2.01 uIU/mL (0.358-3.74); Triglycerides 200 mg/dL; Very Low Density Lipoprotein 40 mg/dL (5-40)
[2021-07-14 11:23] LABS: Vitamin D,25 Hydroxy 85.1 ng/mL
== END 2021-07-14 23:59 | disposition home or self-care (01) ==
PROVIDERS: PCP Family Medicine; Referring Provider Family Medicine; Visit Provider Family Medicine
DX: E03.9 Hypothyroidism, unspecified (principal); E55.9 Vitamin D deficiency, unspecified; E78.5 Hyperlipidemia, unspecified; I10 Essential (primary) hypertension
CPT/HCPCS: 36415; 80053; 80061; 82306; 84443; 85025

== ENCOUNTER 2021-12-03 18:48 | Observation (INO) | payer MEDICARE, OTHER, SELFPAY ==
[2021-12-03 18:49] VITALS: BP 159/71; PULSE 67; RESP 20; TEMP 36.2; O2SAT 86; BMI 30.7
--- NOTE | 2021-12-03 18:53 | ED.RN ---
CALLED FOR EKG
[2021-12-03 18:58] VITALS: O2SAT 98
--- NOTE | 2021-12-03 19:17 | EKG12_ITS ---
Test Reason : DYSRYTHMIA Blood Pressure : / mmHG Vent. Rate : 063 BPM Atrial Rate : 063 BPM P-R Int : 224 ms QRS Dur : 104 ms QT Int : 440 ms P-R-T Axes : 000 -19 056 degrees QTc Int : 450 ms Sinus rhythm with 1st degree A-V block Otherwise normal ECG Confirmed by ALEXANDRU WINTERS, LUX ([id number]), society editor MILADYS WHITMAN ([id number]) on 12/05/2021 11:09:02 AM Referred By: ILSA Confirmed By:LUX HORVATH MD
--- NOTE | 2021-12-03 19:19 | CT_ITS ---
EXAM: CT brain without IV contrast. HISTORY: dizziness TECHNIQUE: No intravenous contrast. COMPARISON: None. LIMITATIONS: None. BRAIN: Mild involutional change. Mild low attenuation bilaterally within the deep white matter, likely secondary to chronic microvascular ischemia. VENTRICLES: No hydrocephalus. EXTRA-AXIAL SPACES: No acute hemorrhage. CALVARIUM/SKULL BASE: No acute fracture. FACE/SINUSES: No significant abnormality. SOFT TISSUES: Normal. OTHER: None. CONCLUSION: No acute intracranial abnormality. Electronically Signed: Eduardo Patel MD at 21:57 EDT , CT/Brain/Head without Contrast IMPRESSION: undefined
--- NOTE | 2021-12-03 19:21 | EX.ED.DYSGE1 ---
HPI History of Present Illness Chief Complaint: Nausea/Vomiting Informant: patient Onset/Context/Timing Onset: Today Context: Sudden Onset Timing: Continuous Current Severity: Moderate Maximum Severity: Moderate Narrative Narrative: 86-year-old female history of anemia, hypertension, prosthetic aortic valve, prior vertigo and chronic diarrhea. She is on no blood thinners. Has been doing well today around 5:00 with sudden onset of dizziness and began sweating. Associated nausea and actually vomited after this episode began. No headache or chest pain. She said it felt like her vertigo but she is never had an episode this severe. It occurred when she was seated trying to balance her checkbook. Female friend at bedside says she is having quite stressful day. No chest pain. No abdominal pain. No dysuria. No fever. Patient states she still has some nausea and gets dizzy and gets worse when she moves her head. No recent fall or head trauma. Prior similar symptoms: Yes Recent Illness/Hospitalization: No PFSH PFSH Medical History (Updated 12/03/21 @ 23:[address] Kenneth Shine MD) Anemia Chronic diastolic (congestive) heart failure Closed fracture dislocation of left ankle joint Closed left ankle fracture Debility Decubitus ulcer of ankle, stage 2 Diaphragmatic paralysis Edema Essential (primary) hypertension Hypokalemia Hypothyroidism Hypothyroidism Non-rheumatic aortic stenosis Normochromic normocytic anemia Obesity Obstructive sleep apnea ANDRY (obstructive sleep apnea) Physical debility Polio Prosthetic aortic valve stenosis Secondary pulmonary arterial hypertension Ventricular ectopy Vertigo Home Medications calcium carbonate 600 mg-vitamin D3 20 mcg (800 unit) tablet 1 tab PO DAILY supplement 06/30/19 [History Last Taken 07/25/19 08:19] cholecalciferol (vitamin D3) 25 mcg (1,000 unit) tablet 1,000 unit PO DAILY supplement 06/30/19 [History Last Taken 07/25/19 08:22] multivitamin with minerals 1 tab PO DAILY supplement 06/30/19 [History Last Taken 07/25/19 08:19] omega 3-dha 60 mg-epa 90 mg-fish oil 500 mg capsule, delayed release 2 tab PO DAILY supplement 06/30/19 [History Last Taken 06/30/19] levothyroxine 75 mcg tablet 75 mcg PO DAILY@0600 08/22/19 [Rx Last Taken Unknown] potassium chloride 10 mEq tablet,extended release(part/cryst) 10 meq PO BIDCM 08/22/19 [Rx Last Taken Unknown] metoprolol succinate 25 mg tablet,extended release 24 hr See Rx Instructions .Route .COMPLEX #90 tabs 06/13/21 [Rx Last Taken Unknown] furosemide 40 mg tablet 40 mg PO 0600,1400 #180 tabs 06/30/21 [Rx Last Taken Unknown] Allergy/AdvReac Type Severity Reaction Status Date / Time aspirin Allergy made my Verified 02/18/21 13:32 blood too thin hydrocodone [From Vicodin] Allergy feels Verified 02/18/21 13:32 like getting high niacin AdvReac severe Verified 02/18/21 13:32 sweating simvastatin AdvReac muscle Verified 02/18/21 13:32 aches Family History Father Dementia Mother Liver cirrhosis Sister Aortic valve disease Brother Dementia Surgical History (Updated 12/03/21 @ 23:[address] Kenneth Shine MD) H/O breast biopsy H/O colonoscopy History of aortic valve replacement with bioprosthetic valve (05/06/12) History of open reduction and internal fixation (ORIF) procedure (07/09/19) History of parathyroidectomy History of right and left heart catheterization (09/01/11) History of tonsillectomy and adenoidectomy Hx of cholecystectomy Social History Smoking Status: Never smoker ROS ROS ED ROS Narrative Room spinning dizziness, nausea and chronic diarrhea. Review of Systems ROS Unobtainable: Denies due to encephalopathy Constitutional Constitutional ED: Denies chills or fever(s) Eyes Eyes: Denies blurry vision ENT ENT ED: Denies ear pain, rhinorrhea or sore throat Cardiovascular Cardiovascular: Denies chest pain or palpitations Respiratory/Chest Respiratory/Chest: Denies cough or dyspnea Gastrointestinal Gastrointestinal: Reports diarrhea, nausea and vomiting; Denies abdominal pain, constipation or melena Genitourinary Genitourinary ED: Denies dysuria Musculoskeletal Musculoskeletal: Denies arthralgias Neurologic Neurologic: Denies headache(s) Psychiatric Psychiatric: Denies anxiety Endocrine Endocrinology: Denies cold intolerance Hematologic/Lymphatic Hematologic/Lymphatic: Reports none Allergic/Immunologic Allergic/Immunologic ED: Denies mouth swelling or tongue swelling EXAM Physical Exam Narrative Exam Narrative: 86-year-old no acute distress vital signs stable afebrile. H M unremarkable. Pupils round reactive light his motions are intact. No facial droop. No signs of trauma. Moist extremities. Neck nontender no JVD. Lungs clear to auscultation. Heart regular rhythm rate about 70 no murmur. Chest were nontender. Abdomen soft nontender. Moving all 4 extremities. 5/5 telesales specialist strength. Dorsi plantarflexion intact. Neurologically she is awake alert with no focal motor deficits. Answering questions following commands. Normal speech. Hallpike maneuver positive and she is more symptomatic. Consistent with vertigo. Const Vital Signs: 12/03/21 18:49 12/03/21 18:58 12/03/21 19:33 Temperature 97.1 F L Temperature Source Temporal Pulse Rate 67 Respiratory Rate 20 H Blood Pressure 159/71 H Blood Pressure Mean 100 Pulse Ox 86 98 Oxygen Delivery Method Room Air Nasal Cannula Nasal Cannula Oxygen Flow Rate (L/min) 2 2 12/03/21 21:00 12/03/21 23:00 Temperature Temperature Source Pulse Rate 73 71 Respiratory Rate 16 23 H Blood Pressure 148/58 H 127/62 H Blood Pressure Mean 88 83 Pulse Ox 98 92 Oxygen Delivery Method Room Air Oxygen Flow Rate (L/min) Positive well nourished and well developed; Negative for obese, cachectic, contractures or unkempt General Appearance ED: well developed; Negative for unkempt, cachectic or contractures Nutritional Appearance: Negative for cachectic or obese HEENT Reports TM's clear and moist mucous membranes Negative for trauma Tympanic Membrane ED: Yes TM's clear Eyes PERRL and EOMs intact bilaterally General Eye ED: Negative for pale conjunctiva or scleral icterus Neck no lymphadenopathy, supple and no JVD General: Negative for tenderness Lymph Lymphatic: Negative for other Chest Wall inspection of chest normal and palpation of chest normal Resp normal respiratory effort and clear to auscultation bilaterally Effort and Inspection: Negative for retractions Auscultation: Negative for rales, rhonchi or wheezes Cardio regular rate, regular rhythm, S1 normal heart sound, S2 normal heart sound and no murmurs Palpation: Negative for palpable S3 Rate: Negative for bradycardia or tachycardic Rhythm: Negative for abnormal rhythm GI normal to inspection, nondistended, normoactive bowel sounds, non-tender, non-distended and no masses Inspection: Negative for abdominal distention Auscultation: normoactive bowel sounds Palpation: soft; Negative for tender, guarding, splenomegaly or mass Back/Spine no CVA tenderness General Back: Negative for CVA tenderness Cervical Spine: Negative for cervical spine tenderness Thoracic Spine / Upper Back: Negative for thoracic spinal tenderness Lumbar Spine / Lower Back: Negative for lumbar spinal tenderness Extremity normal to inspection General Extremety ED: Negative for edema or tenderness General Extremity: Negative for edema Neuro oriented x3, CN's II-XII intact bilaterally and no sensory deficits noted Sensorium / Orientation: alert; Negative for orientation impaired, lethargic or stuporous Motor Exam: strength 5/5 throughout; Negative for general weakness Psych mental status grossly normal Appearance: Negative for unkempt Attitude: No agitated Skin no rashes or lesions noted and no wounds Rashes: No rashes noted Trauma: Negative for abrasion Wounds: Negative for wounds noted MDM MDM MDM Narrative Medical decision making narrative: 86-year-old with what sounds clinically like severe vertigo today. Will be treated with IV fluids, IV Zofran for nausea and p.o. Antivert. CAT scan labs are being obtained. Multiple repeat exams currently the patient is doing well at 9:45 PM. She is improving. Her nausea is resolved. She still does have some dizziness. The friend with her is a retired nurse. She wants to make sure this was not a cardiac event and when his second troponin to be obtained which I am ordering. Patient neurologically is awake and alert. Clinically this is vertigo. She will be reassessed to see how she is feeling. Neurologically she has been intact the entire time. Repeat exam patient tried to ambulate around 11:10 PM. She did very poorly. She became dizzy and weak. I discussed with family. On repeat exam she is resting comfortably in bed. She will be admitted. The hospitalist is on page. Patient has had no illness for last several days. He was feeling fine until 5 PM tonight. She has had no chest pain nor palpitations. She has had no hemoptysis. No leg pain or swelling. No recent travel, surgery or immobilization. Lab Data Attestation: I reviewed the patient's lab results. Lab results narrative: CBC shows a white count 11.8. H&H 14 and 44. Platelets 245. Electrolytes show a gap of 8 BUN 22 creatinine 1.1. Glucose 224. Troponin is normal at 9. Chest x-ray shows chronic changes no acute process. Labs: Laboratory Results - last 24 hr 12/03/21 12/03/21 12/03/21 18:30 18:30 21:45 WBC 11.8 H RBC 4.41 Hgb 14.1 Hct 44.0 MCV 99.8 H MCH 32.0 MCHC 32.0 RDW Std Deviation 48.5 H RDW Coeff of Junior 13.2 Plt Count 245 MPV 9.9 Immature Gran % (Auto) 0.400 Neut % (Auto) 73.9 H Lymph % (Auto) 19.6 [place] % (Auto) 5.1 Eos % (Auto) 0.6 Baso % (Auto) 0.4 Absolute Neuts (auto) 8.7 H Absolute Lymphs (auto) 2.31 Nucleated RBC % 0 Sodium 141 Potassium 3.7 Chloride 100 Carbon Dioxide 33.0 H Anion Gap 8 BUN 22 H Creatinine 1.11 H Estim Creat Clear Calc 29.84 Est GFR (MDRD) Af Amer 60 Est GFR (MDRD) Non-Af 50 L BUN/Creatinine Ratio 19.8 Glucose 224 H Calcium 9.8 Troponin I High Sens 9 12 Radiography Chest X-Ray - ED: 1 View, Read by ED Physician, Heart, Lungs, Mediastinum, Bony Structures, No Acute Disease and Chronic Changes Diagnostic Testing: Clinical Impression(s) from Imaging Studies Brain CT 12/03/21 19:19 IMPRESSION: undefined Chest X-Ray 12/03/21 19:30 IMPRESSION: Elevation of the left hemidiaphragm with bibasilar atelectasis/scarring. Electronically Signed: Eduardo Patel MD at 20:24 EDT , Rhythm Strip Rhythm Strip: Sinus Rhythm Rate: 63 Ectopy: None EKG Initial EKG: Attestation: I personally reviewed and interpreted this EKG as follows: Interpretation: Sinus Rhythm and No Acute Injury Pattern Comments: Normal sinus rhythm rate of 63 no acute signs of [place] or ischemia. First-degree AV block SC interval 224. Treatment and Re-Evaluation Narrative: Chest x-ray, portable, single view interpreted both by myself and radiologist shows bilateral atelectasis. Elevated left hemidiaphragm. Chronic changes. No acute process. Discharge Plan Dx/Rx/DC Orders Clinical Impression: Vertigo, History of aortic valve replacement with bioprosthetic valve Disposition Disposition: Acute Care Hospital [facility]
--- NOTE | 2021-12-03 19:30 | RAD_ITS ---
INDICATION: chest pain EXAMINATION: Frontal view of the chest COMPARISON: June 30, 2019. FINDINGS: Frontal view of the chest was obtained. The cardiac silhouette is not enlarged. Elevation of the left hemidiaphragm, similar to the prior exam. Atelectasis/scarring in the lung bases bilaterally is grossly similar. No pneumothorax. Old rib fractures on the right. Median sternotomy. RAD/Chest 1 View (Portable) IMPRESSION: Elevation of the left hemidiaphragm with bibasilar atelectasis/scarring. Electronically Signed: Eduardo Patel MD at 20:24 EDT ,
[2021-12-03] MEDS: 0.9% Normal Saline 1,000 ML 999 ML IV (19:36)
[2021-12-03] MEDS: Ondansetron 4 MG/2 ML Vial IV (19:36)
[2021-12-03] MEDS: Meclizine HCl 25 MG Tablet PO (19:36)
[2021-12-03 19:37] LABS: Absolute Lymphocyte Count 2.31 X10^3/uL (0.83-4.51); Absolute Neutrophil Count 8.7 X10^3/uL (2.0-7.7); Basophil# 0.05 X10^3/uL; Basophil% 0.4 % (0-1); Eosinophil# 0.07 X10^3/uL; Eosinophils% 0.6 % (0-5); Hemoglobin 14.1 g/dL (12.0-15.0); Lymphocyte # 2.31 X10^3/ul (0.83-4.51); Lymphocyte % 19.6 % (19-41); Mean Corpuscular Volume 99.8 fL (81-99); Mean Platelet Vol. 9.9 fl (6.2-12.0); Monocyte% 5.1 % (0-10); NRBC Flagged by Analyzer 0 % (0-5); Neutrophil % 73.9 % (47-70); Platelet Count 245 K/mm3 (150-450); RBC Distribution Width CV 13.2 % (11.6-14.6); RBC Distribution Width SD 48.5 fl (35.1-43.9); Red Blood Count 4.41 M/mm3 (4.2-5.4); White Blood Count 11.8 K/mm3 (4.4-11.0)
[2021-12-03 19:54] LABS: Anion Gap 8 (5-15); BUN 22 mg/dL (7-18); BUN/Creat Ratio 19.8 RATIO (10-20); Calcium,Total 9.8 mg/dL (8.5-10.1); Chloride 100 mmol/L (98-107); Creatinine, Serum 1.11 mg/dL (0.55-1.02); EST Glomerular Filtration Rate 50 mL/min (>60); Est Glom Filt Rate - Afr Amer 60 mL/min (>60); Estimated Creatinine Clearance 29.84 ml/min; Glucose 224 mg/dL (74-106); Potassium 3.7 mmol/L (3.5-5.1); Sodium Level 141 mmol/L (136-145); Troponin-I HS 9 pg/mL (3.0-54.0)
[2021-12-03 21:00] VITALS: BP 148/58; PULSE 73; RESP 16; O2SAT 98
[2021-12-03 22:21] LABS: Troponin-I HS 12 pg/mL (3.0-54.0)
[2021-12-03 23:00] VITALS: BP 127/62; PULSE 71; RESP 23; O2SAT 92
[2021-12-03 23:15] VITALS: O2SAT 81
--- NOTE | 2021-12-03 23:20 | PCM.HP.STD ---
HPI - General General Date of Admission: 12/03/21 Date of Service: 12/03/21 Chief Complaint: Nausea/emesis, Vertigo HPI Narrative The patient is an 86 y/o F w/ PMHx: Chronic anemia, Chronic Diastolic CHF, HTN, HLD, ANDRY on BIPAP q HS, Hypothyroidism, Chronic Diaphragmatic paralysis with Chronic Hypoxic Respiratory Failure (known hypoxia, worse with exertion, has been previously on continuous oxygen and has been brought up by Dr. Paul), Valvular Heart Disease s/p AVR Bioprosthetic, BPPV who presents to the [facility] ED on 12/04/21 with history of very abrupt sudden onset vertigo starting at approximately 5 PM with associated nausea and emesis as well as diaphoresis with intermittent episodes which eventually progressively worsened and became more profound occurring even when she was sitting. She notes onset is worse when she moves her head and notes it all initially began after she was attempting to crack her neck. In the ED patient had significant onset recurrent symptoms with any [place]-Hallpike maneuver reattempt by ED physician. Discussed with patient's sister who is present who is her healthcare power of ship's master and other family in addition to with patient goals of care as she specifically notes that she is DNRCC with a specific comfort focus only. In the ED patient was noted to be hypoxic when she was exerting herself therefore she was placed on 2 L nasal cannula. This is a known fact and she is amenable to potentially oxygenation assessment and set up for oxygen but she does not want further aggressive evaluation. She is amenable to meclizine treatment and therapy evaluation for discharge planning but declined MRI consideration if her symptoms were ongoing. She did note eventual improvement with meclizine although initially she had recurrent events but this subsided. Patient reports also she has been under a significant amount of stress recently and has been very anxious with onset of the symptoms initially when she was attempting to balance her checkbook. Work-up in the ED included T97.1, heart rate 67, BP initially 159/71, respiratory rate 20, 86% on room air when she was exerting herself improving to 98% on 2 L nasal cannula which again family at her state is a chronic component but she has declined to be on oxygen chronically only using it at night, seem to with risk 11.8, hemoglobin 14.1, platelet 245 with left shift, BMP with A 33, BUN/creat 22/1.11, glucose 224, troponin initial 9 with repeat 12, EKG with sinus rhythm with first-degree AV block with no acute evidence of ischemia, chest x-ray with chronic elevation of the left hemidiaphragm with bibasilar atelectasis/scarring, CT of the brain with no acute intracranial abnormality. In the ED patient ministered normal saline bolus, aspirin 324 mg p.o. x1, meclizine 25 mg p.o. x1 and Zofran 4 mg IV x1. [facility] Medical History (Updated 12/03/21 @ 23:[address] Kenneth Shine MD) Anemia Chronic diastolic (congestive) heart failure Closed fracture dislocation of left ankle joint Closed left ankle fracture Debility Decubitus ulcer of ankle, stage 2 Diaphragmatic paralysis Edema Essential (primary) hypertension Hypokalemia Hypothyroidism Hypothyroidism Non-rheumatic aortic stenosis Normochromic normocytic anemia Obesity Obstructive sleep apnea ANDRY (obstructive sleep apnea) Physical debility Polio Prosthetic aortic valve stenosis Secondary pulmonary arterial hypertension Ventricular ectopy Vertigo Home Medications calcium carbonate 600 mg-vitamin D3 20 mcg (800 unit) tablet 1 tab PO DAILY supplement 06/30/19 [History Last Taken 07/25/19 08:19] cholecalciferol (vitamin D3) 25 mcg (1,000 unit) tablet 1,000 unit PO DAILY supplement 06/30/19 [History Last Taken 07/25/19 08:22] multivitamin with minerals 1 tab PO DAILY supplement 06/30/19 [History Last Taken 07/25/19 08:19] omega 3-dha 60 mg-epa 90 mg-fish oil 500 mg capsule, delayed release 2 tab PO DAILY supplement 06/30/19 [History Last Taken 06/30/19] levothyroxine 75 mcg tablet 75 mcg PO DAILY@0600 08/22/19 [Rx Last Taken Unknown] potassium chloride 10 mEq tablet,extended release(part/cryst) 10 meq PO BIDCM 08/22/19 [Rx Last Taken Unknown] metoprolol succinate 25 mg tablet,extended release 24 hr See Rx Instructions .Route .COMPLEX #90 tabs 06/13/21 [Rx Last Taken Unknown] furosemide 40 mg tablet 40 mg PO 0600,1400 #180 tabs 06/30/21 [Rx Last Taken Unknown] Allergy/AdvReac Type Severity Reaction Status Date / Time aspirin Allergy made my Verified 02/18/21 13:32 blood too thin hydrocodone [From Vicodin] Allergy feels Verified 02/18/21 13:32 like getting high niacin AdvReac severe Verified 02/18/21 13:32 sweating simvastatin AdvReac muscle Verified 02/18/21 13:32 aches Family History Father Dementia Mother Liver cirrhosis Sister Aortic valve disease Brother Dementia Surgical History (Updated 12/03/21 @ 23:[address] Kenneth Shine MD) H/O breast biopsy H/O colonoscopy History of aortic valve replacement with bioprosthetic valve (05/06/12) History of open reduction and internal fixation (ORIF) procedure (07/09/19) History of parathyroidectomy History of right and left heart catheterization (09/01/11) History of tonsillectomy and adenoidectomy Hx of cholecystectomy Social History (Updated 12/04/21 @ 02:[address] Ivett Orozco MD) household members: none Smoking Status: Never smoker alcohol intake: never substance use type: does not use ROS ROS Narrative Admission Review of Systems: CONSTITUTIONAL: No weight loss, fever, chills, + weakness or fatigue. HEENT: Eyes: No visual loss, blurred vision, double vision or yellow sclerae. Ears, Nose, Throat: No hearing loss, sneezing, congestion, runny nose or sore throat. SKIN: No rash or itching, lesions, wounds. CARDIOVASCULAR: No chest pain, chest pressure or chest discomfort, palpitations, edema, orthopnea, syncopal events. RESPIRATORY: No shortness of breath, cough or sputum, wheezing, hemoptysis. GASTROINTESTINAL: + anorexia, nausea, vomiting, No diarrhea, abdominal pain, melena, BRBPR. GENITOURINARY: No dysuria, frequency, urgency or retention. NEUROLOGICAL: + Vertigo. No headache, dizziness, syncope, paralysis, ataxia, numbness or tingling in the extremities, focal weakness, change in bowel or bladder control, seizure. MUSCULOSKELETAL: + muscle, back pain, joint pain or stiffness. HEMATOLOGIC: + anemia, bleeding or bruising. LYMPHATICS: No enlarged nodes. No history of splenectomy. PSYCHIATRIC: + history of depression or anxiety. ENDOCRINOLOGIC: No reports of sweating, cold or heat intolerance. No polyuria or polydipsia. ALLERGIES: No history of asthma, hives, eczema or rhinitis. Vital Signs Vital Signs Vital Signs: 12/03/21 18:49 12/03/21 18:58 12/03/21 19:33 Temperature 97.1 F L Temperature Source Temporal Pulse Rate 67 Respiratory Rate 20 H Blood Pressure 159/71 H Blood Pressure Mean 100 Pulse Ox 86 98 Oxygen Delivery Method Room Air Nasal Cannula Nasal Cannula Oxygen Flow Rate (L/min) 2 2 12/03/21 21:00 Temperature Temperature Source Pulse Rate 73 Respiratory Rate 16 Blood Pressure 148/58 H Blood Pressure Mean 88 Pulse Ox 98 Oxygen Delivery Method Room Air Oxygen Flow Rate (L/min) Weight Weight: 167 lb 15.876 oz Body Mass Index (BMI) 30.7 Physical Exam Narrative Physical Examination: General: Awake, alert, oriented x 3 and cooperative, hard of hearing on the right side/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 Skin: Normal color, normal turgor, no icterus, no cyanosis except occasional staged ecchymoses. HEENT: AT/NC, EOMI, PERRLA, dry MM, no carotid bruits or JVD noted no nystagmus noted. Lungs: Diminished, greater bases, appropriate effort, no rales, ronchi or wheezing. Heart: Regular rate and rhythm; no gallop, rub audible. Abdomen: Soft, obese, NTTP, ND, normal BS, no HSM. Extremities: No cyanosis, clubbing, or edema. Neurological: Patient awake, alert, oriented as noted, cognitive function peers improved, now baseline intact; pupils equally reactive to light and accommodation, cranial nerves II-XII grossly normal, moving all 4 extremities, no focal deficits, reproduced except Hallpike maneuver with significant recurrent symptoms during ED evaluations, strength accordingly severely global decreased. Psychiatric: Affect appears fatigued, no acute evidence of depressive or anxiety feelings. Results Lab / Micro Data Result Diagrams: 12/03/21 18:30 12/03/21 18:30 Labs: Laboratory Results - last 24 hr 12/03/21 18:30: WBC 11.8 H, RBC 4.41, Hgb 14.1, Hct 44.0, MCV 99.8 H, MCH 32.0, MCHC 32.0, RDW Std Deviation 48.5 H, RDW Coeff of Junior 13.2, Plt Count 245, MPV 9.9, Immature Gran % (Auto) 0.400, Neut % (Auto) 73.9 H, Lymph % (Auto) 19.6, Richardson % (Auto) 5.1, Eos % (Auto) 0.6, Baso % (Auto) 0.4, Absolute Neuts (auto) 8.7 H, Absolute Lymphs (auto) 2.31, Nucleated RBC % 0 12/03/21 18:30: Sodium 141, Potassium 3.7, Chloride 100, Carbon Dioxide 33.0 H, Anion Gap 8, BUN 22 H, Creatinine 1.11 H, Estim Creat Clear Calc 29.84, Est GFR (MDRD) Af Amer 60, Est GFR (MDRD) Non-Af 50 L, BUN/Creatinine Ratio 19.8, Glucose 224 H, Calcium 9.8, Troponin I High Sens 9 12/03/21 21:45: Troponin I High Sens 12 Rhythm Strip Rhythm Strip: Sinus Rhythm Rate: 63 Ectopy: None Radiology Impression Brain CT 12/03/21 19:19 IMPRESSION: undefined Chest X-Ray 12/03/21 19:30 IMPRESSION: Elevation of the left hemidiaphragm with bibasilar atelectasis/scarring. Electronically Signed: Eduardo Patel MD at 20:24 EDT , Assessment & Plan Assessment/Plan (1) Vertigo: PLAN: Plan The patient is an 86 y/o F w/ PMHx: Chronic anemia, Chronic Diastolic CHF, HTN, HLD, ANDRY on BIPAP q HS, Hypothyroidism, Chronic Diaphragmatic paralysis with Chronic Hypoxic Respiratory Failure (known hypoxia, worse with exertion, has been previously on continuous oxygen and has been brought up by Dr. Paul), Valvular Heart Disease s/p AVR Bioprosthetic, BPPV who presents to the [facility] ED on 12/04/21 with history of very abrupt sudden onset vertigo starting at approximately 5 PM with associated nausea and emesis as well as diaphoresis with intermittent episodes which eventually progressively worsened and became more profound occurring even when she was sitting. #1. Vertigo with history BPPV: ED evaluation with troponin initial 9 with repeat 12, EKG with sinus rhythm with first-degree AV block with no acute evidence of ischemia, chest x-ray with chronic elevation of the left hemidiaphragm with bibasilar atelectasis/scarring, CT of the brain with no acute intracranial abnormality.EKG without acute findings. Initially her CODE status had not been known and her hypoxia chronically was not known thus initially patient transitioned to PCU; however, following Hospitalist evaluation transitioned to MS status off telemetry. Will maintain on fall precautions, continue treatment with scheduled meclizine, PRN zofran, IVFs, PT/OT consultation to ascertain stability and discharge needs. Patient does not want further aggressive evaluations including MRI. If symptomatically improved she would like discharge to home in AM. #2. Chronic Diaphragmatic paralysis with Chronic Hypoxic Respiratory Failure: Patient with known hypoxia, worse with exertion, has been previously on continuous oxygen and has been brought up by Dr. Paul but from discussion with patient and her family she has been reticent, noting story of issues with irritation with the NC tubing. Discussed this at length and patient amenable to oxygenation reassessment at her discharge at set-up if appropriate with early follow-up with Dr. Paul. #3. Renal insufficiency: Admission BUN/creatinine 22/1.11, prior baseline 0.8, likely secondary to recent GI losses, judiciously hydrate and repeat BMP in AM. If renal function worsens would hold any nephrotoxic medications including patient Lasix. #4. Chronic Diastolic CHF: We will continue aspirin low-dose, metoprolol, Lasix, not on statin therapy nor PAULA inhibitor/ARB, defer especially given age. If patient with recurrent bouts of emesis or worsening renal function would temporarily hold diuretic therapy. #5. Valvular Heart Disease: s/p AVR Bioprosthetic, most recent echocardiogram 03/19/2020 with normal LV size, normal LV systolic function, EF 60%, stage I diastolic dysfunction, mean AV gradient 28 mmHg, bioprosthetic AV present compared to prior study no significant change. #6. Hypertension: Continue home regimen including metoprolol, Lasix with hold parameters as noted, PRN hydralazine. #7. Hyperlipidemia: Not on statin therapy, defer given age #8. Hypothyroidism: Continue home synthroid regimen. #9. ANDRY: Maintain on BIPAP q HS. #10. DVT prophylaxis: Given patient comfort care status will defer any SCDs or chemoprophylaxis. #11. CODE status: Patient ARLEN is her sister who is present and living will is currently in place. Discussed CODE status at length including difference between FULL code, DNR-CCA and DNR-CC status. Following discussions about the differences in these status, requested DNR-CC status and specifically requested avoidance of any aggressive interventions or further evaluation but only symptom control at this time. Advanced Care Planning Face to Face Time: 16 minutes. Charges/Coding Visit Charges OBSV E&M: 56387 Initial observation care L3 Procedures Hospitalists Procedures: 62031 Advncd Care Plan 30 Min
--- NOTE | 2021-12-03 23:30 | ED.RN ---
ATTEMPTED TO AMBULATE PT, TOOK SEVERAL STEPS BUT FELT WEAK AND DIZZY. SPO2 DROPPED TO 81% ON ROOM AIR.
[2021-12-03 23:31] VITALS: BP 133/67; PULSE 69; RESP 20; TEMP 36.6; O2SAT 95
[2021-12-04] VITALS (8 sets, daily range): BP systolic 109–135; BP diastolic 57–87; PULSE 76–82; RESP 16–20; TEMP 36.4–36.6; O2SAT 88–98; BMI 30.3
[2021-12-04] MEDS: diazePAM 2 MG Tablet PO ×2 (01:32→04:43)
[2021-12-04] MEDS: 0.9% Normal Saline 1,000 ML 75 ML IV (01:32)
[2021-12-04] MEDS: Levothyroxine 75 MCG Tablet PO (04:42)
[2021-12-04] MEDS: Furosemide 40 MG Tablet PO (04:42)
[2021-12-04] MEDS: Meclizine HCl 25 MG Tablet PO ×2 (04:42→14:39)
[2021-12-04] MEDS: Potassium Chloride Oral Tablet 10 MEQ PO (08:55)
[2021-12-04] MEDS: Metoprolol(XL)Succ 25 MG Tablet PO (10:00)
--- NOTE | 2021-12-04 12:39 | NURSING ---
Aviva, from the [facility] called to report that precert was obtained. Dr Parker aware, but would like to obtain MRI in the morning before discharging. Aviva stated precert will be good through tomorrow and can take patient following MRI. Patient will require a covid test tomorrow 12/05.
--- NOTE | 2021-12-04 13:31 | DCINST_ITS ---
Discharge Instructions Diet Discharge Diet: No restrictions Activity Discharge Activity: Return to Normal Activity Weight Bearing Status: Full weight bearing Follow Up Care Test Results: Test results from this visit will be discussed in further detail at your follow- up appointment, if applicable. Discharge Plan Admission Admit Date/Time: 12/03/21 23:22 Primary Reason for Your Visit: Vertigo Attending Provider: Milton Michelle Primary Care Provider: Ethan Lau Consulting Providers: Ivett Orozco Instructions Additional Instructions / Restrictions: Use oxygen at 2 L/min continuously at rest, increase oxygen to 3 L when ambulating or during activity Recommend you see Dr. Paul in 2 to 3 weeks for follow-up Discharge Orders/Prescriptions Prescriptions: New meclizine 25 mg Tablet 25 mg PO TID PRN PRN (Reason: dizziness) Qty: 21 0RF Continued multivitamin with minerals 1 EACH tablet 1 tab PO DAILY cholecalciferol (vitamin D3) 1,000 UNIT tablet 1,000 unit PO DAILY omega 7-xpf-zuv-fish oil 500 MG capsule,delayed release(DR/EC) 2 tab PO DAILY calcium carbonate-vitamin D3 1 EACH tablet 1 tab PO DAILY levothyroxine 75 MCG tablet 75 mcg PO DAILY@0600 0RF potassium chloride 10 MEQ tablet 10 meq PO BIDCM 0RF metoprolol succinate 25 mg tablet extended release 24 hr See Rx Instructions .ROUTE .COMPLEX Qty: 90 3RF Dose Instruction: TAKE 1 TABLET BY MOUTH EVERY DAY Rx Instructions: TAKE 1 TABLET BY MOUTH EVERY DAY furosemide 40 mg tablet 40 mg PO 0600,1400 Qty: 180 3RF Referrals / Follow Up: Yong Paul MD [STAFF PHYSICIAN] - See Referral Note (in 2-3 weeks) Ethan Lau MD [Primary Care Provider] - Disposition Disposition (needs filled in before D/C Order can be placed): Home, Self Care
--- NOTE | 2021-12-04 13:39 | PCM.DC.SUM ---
Providers Date of Admission: 12/03/21 Date of Discharge: 12/04/21 Primary Care Physician: Dr. Ethan Lau MD Reason For Visit: VERTIGO Diagnosis Discharge Diagnosis (1) Vertigo: Status: Acute Code(s): R42 - Dizziness and giddiness Plan 1. Vertigo-benign #2 chronic hypoxic respiratory failure #3 chronic diastolic congestive heart failure #4 essential hypertension #5 hypothyroidism #6 hyperglycemia-etiology unclear Medications at Discharge Home Medications calcium carbonate 600 mg-vitamin D3 20 mcg (800 unit) tablet 1 tab PO DAILY supplement 06/30/19 cholecalciferol (vitamin D3) 25 mcg (1,000 unit) tablet 1,000 unit PO DAILY supplement 06/30/19 multivitamin with minerals 1 tab PO DAILY supplement 06/30/19 omega 3-dha 60 mg-epa 90 mg-fish oil 500 mg capsule, delayed release 2 tab PO DAILY supplement 06/30/19 levothyroxine 75 mcg tablet 75 mcg PO DAILY@0600 08/22/19 potassium chloride 10 mEq tablet,extended release(part/cryst) 10 meq PO BIDCM 08/22/19 metoprolol succinate 25 mg tablet,extended release 24 hr See Rx Instructions .Route .COMPLEX #90 tabs 06/13/21 furosemide 40 mg tablet 40 mg PO 0600,1400 #180 tabs 06/30/21 meclizine 25 mg tablet 25 mg PO TID PRN PRN dizziness #21 tabs 12/04/21 Hospital Course Operations None Procedures None Summary of Care Provided Minutes Spent on Discharge: 30 Hospital Course: This 86-year-old white female was seen in the emergency room at [facility] with a chief complaint of dizziness along with nausea and vomiting. Patient also had some diaphoresis. She has had vertigo symptoms before but she stated the episode was severe. Work-up in the emergency room showed the patient to be alert and oriented x3 with no focal motor deficits. Lab obtained showed a slightly elevated white blood cell count, chemistry profile was remarkable for creatinine of 1.1 and a BUN of 22, patient's glucose was 224. Chest x-ray showed bibasilar atelectasis/scarring with elevation of the left hemidiaphragm. Patient's brain CT was unremarkable. Patient did poorly when ambulating, she was placed into observation status on PCU, she was given Valium and Antivert p.o., patient's symptoms resolved during her hospital stay but she required oxygen at rest to maintain her pulse ox-she required 2 L at rest and 3 L on ambulation. Patient's pulse ox at rest on room air was 88%, at rest with 2 L of oxygen pulse ox was 97%, ambulating with oxygen at 2 L was 88%, ambulating with oxygen at 3 L was 94%. A prescription for this was supplied to the patient. On 12/04/2021, patient was seen and examined: On examination she appeared in good health and spirits, she does not appear to be in any distress. Vital signs as documented. Skin warm and dry and without overt rashes. Neck without JVD, thyroid appears normal, trachea is midline, neck is supple. Lungs clear, normal air movement was noted. Heart exam notable for regular rhythm, normal sounds and absence of murmurs, rubs or gallops. Abdomen unremarkable and without evidence of organomegaly, masses, or abdominal aortic enlargement, bowel sounds are present in all 4 quadrants, no abdominal tenderness was noted. Extremities nonedematous, no cyanosis was noted, no clubbing was noted. Neuro: Cranial nerves II through XII are grossly intact, no focal motor deficits were noted, sensation to light touch and pinprick is intact, motor exam 5/5 throughout. Psych: Patient is alert and oriented x3, she does not appear anxious or depressed, she does not appear agitated. Patient appears stable for discharge home on 12/04/2021. Patient was instructed to follow-up with her sticker hand regarding her chronic hypoxic respiratory failure and to follow-up with her PCP regarding her elevated blood sugars-I did not feel the patient needed to be placed on anything for type 2 diabetes. Weight / BMI Weight Weight: 75.3 kg Body Mass Index (BMI) 30.3 ABG / Lab / Microbiology Data Result Diagrams: 12/03/21 18:30 12/03/21 18:30 Laboratory: Laboratory Results - last 24 hr 12/03/21 18:30: WBC 11.8 H, RBC 4.41, Hgb 14.1, Hct 44.0, MCV 99.8 H, MCH 32.0, MCHC 32.0, RDW Std Deviation 48.5 H, RDW Coeff of Junior 13.2, Plt Count 245, MPV 9.9, Immature Gran % (Auto) 0.400, Neut % (Auto) 73.9 H, Lymph % (Auto) 19.6, [place] % (Auto) 5.1, Eos % (Auto) 0.6, Baso % (Auto) 0.4, Absolute Neuts (auto) 8.7 H, Absolute Lymphs (auto) 2.31, Nucleated RBC % 0 12/03/21 18:30: Sodium 141, Potassium 3.7, Chloride 100, Carbon Dioxide 33.0 H, Anion Gap 8, BUN 22 H, Creatinine 1.11 H, Estim Creat Clear Calc 29.84, Est GFR (MDRD) Af Amer 60, Est GFR (MDRD) Non-Af 50 L, BUN/Creatinine Ratio 19.8, Glucose 224 H, Calcium 9.8, Troponin I High Sens 9 12/03/21 21:45: Troponin I High Sens 12 Radiography Diagnostic Testing: Radiology Impression Brain CT 12/03/21 19:19 IMPRESSION: undefined Chest X-Ray 12/03/21 19:30 IMPRESSION: Elevation of the left hemidiaphragm with bibasilar atelectasis/scarring. Electronically Signed: Eduardo Patel MD at 20:24 EDT Reading Location ID and State: Replaced by [facility] / [place] Tel , Service support , D/C Instructions Discharge Diet: No restrictions Weight Bearing Status: Full weight bearing Meaningful Use Info Meaningful Use Diagnoses (Choose all that apply): None applicable Discharge Plan Admission Admit Date/Time: 12/03/21 23:22 Primary Reason for Your Visit: Vertigo Attending Provider: Milton Michelle Primary Care Provider: Ethan Lau Consulting Providers: Ivett Orozco Instructions Additional Instructions / Restrictions: Use oxygen at 2 L/min continuously at rest, increase oxygen to 3 L when ambulating or during activity Recommend you see Dr. Paul in 2 to 3 weeks for follow-up Discharge Orders/Prescriptions Prescriptions: New meclizine 25 mg Tablet 25 mg PO TID PRN PRN (Reason: dizziness) Qty: 21 0RF Continued multivitamin with minerals 1 EACH tablet 1 tab PO DAILY cholecalciferol (vitamin D3) 1,000 UNIT tablet 1,000 unit PO DAILY omega 8-pbm-zix-fish oil 500 MG capsule,delayed release(DR/EC) 2 tab PO DAILY calcium carbonate-vitamin D3 1 EACH tablet 1 tab PO DAILY levothyroxine 75 MCG tablet 75 mcg PO DAILY@0600 0RF potassium chloride 10 MEQ tablet 10 meq PO BIDCM 0RF metoprolol succinate 25 mg tablet extended release 24 hr See Rx Instructions .ROUTE .COMPLEX Qty: 90 3RF Dose Instruction: TAKE 1 TABLET BY MOUTH EVERY DAY Rx Instructions: TAKE 1 TABLET BY MOUTH EVERY DAY furosemide 40 mg tablet 40 mg PO 0600,1400 Qty: 180 3RF Referrals / Follow Up: Yong Paul MD [STAFF PHYSICIAN] - See Referral Note (in 2-3 weeks) Ethan Lau MD [Primary Care Provider] - Within 2 Weeks (Your blood sugar was elevated in the hospital) Disposition Disposition (needs filled in before D/C Order can be placed): Home, Self Care Charges/Coding Visit Charges OBSV E&M: 90946 Observation care discharge
[2021-12-04 14:10] LABS: Bedside Glucose 166 mg/dL (74-106)
--- NOTE | 2021-12-04 15:02 | NURSING ---
Discharge instructions reviewed with patient and pt's friend at bedside. No questions about discharge instructions at this time. IV removed per policy. Pt left via wheelchair to discharge area with portable oxygen.
== END 2021-12-04 13:39 | disposition home or self-care (01) ==
LOC: ED 23:25 → PCU 23:40
PROVIDERS: Admitting Provider Family Medicine; Emergency Provider Emergency Medicine; PCP Family Medicine; Visit Provider Internal Medicine
DX: R42 Dizziness and giddiness (principal); I11.0 Hypertensive heart disease with heart failure; I50.32 Chronic diastolic (congestive) heart failure; J96.11 Chronic respiratory failure with hypoxia; Z95.2 Presence of prosthetic heart valve; R53.1 Weakness; E78.5 Hyperlipidemia, unspecified; R11.2 Nausea with vomiting, unspecified; I44.0 Atrioventricular block, first degree; E03.9 Hypothyroidism, unspecified; G47.33 Obstructive sleep apnea (adult) (pediatric); R73.9 Hyperglycemia, unspecified; Z79.899 Other long term (current) drug therapy; Z79.890 Hormone replacement therapy; E66.9 Obesity, unspecified; Z68.30 Body mass index [BMI] 30.0-30.9, adult
CPT/HCPCS: 70450; 71045; 80048; 82962; 84484; 85025; 93005; 96361; 96374; 97162; 97166; 99218; 99285; J7030; A4216; G0378; J2405

== ENCOUNTER → 2022-02-15 | Outpatient (CLI) | payer MEDICARE, OTHER, SELFPAY ==
[2022-02-15 09:42] LABS: Absolute Lymphocyte Count 2.86 X10^3/uL (0.83-4.51); Basophil# 0.07 X10^3/uL; Basophil% 0.9 % (0-1); Eosinophil# 0.19 X10^3/uL; Eosinophils% 2.5 % (0-5); Hematocrit 42.8 % (37-47); Hemoglobin 13.7 g/dL (12.0-15.0); Lymphocyte # 2.86 X10^3/ul (0.83-4.51); Mean Corpuscular Hgb 32.1 pg (27.0-32.0); Mean Corpuscular Volume 100.2 fL (81-99); Monocyte# 0.63 X10^3/uL; Monocyte% 8.2 % (0-10); NRBC Flagged by Analyzer 0 % (0-5); Neutrophil # 3.97 X10^3/uL (2.7-7.7); Neutrophil % 51.3 % (47-70); Platelet Count 246 K/mm3 (150-450); RBC Distribution Width CV 13.5 % (11.6-14.6); RBC Distribution Width SD 49.4 fl (35.1-43.9); Red Blood Count 4.27 M/mm3 (4.2-5.4); White Blood Count 7.7 K/mm3 (4.4-11.0)
[2022-02-15 10:08] LABS: ALB/GLOB Ratio 0.8 RATIO (0.9-2.4); AST(SGOT) 26 U/L (15-37); Alanine Aminotransfer ALT/SGPT 18 U/L (13-56); Albumin, Serum 3.5 g/dL (3.2-5.0); Alkaline Phosphatase 88 U/L (45-117); Anion Gap 5 (5-15); BUN 17 mg/dL (7-18); Calcium,Total 9.7 mg/dL (8.5-10.1); Chloride 104 mmol/L (98-107); Cholesterol 275 mg/dL (200); Creatinine, Serum 0.85 mg/dL (0.55-1.02); EST Glomerular Filtration Rate 68 mL/min (>60); Est Glom Filt Rate - Afr Amer 82 mL/min (>60); Globulin 4.2 g/dL (2.2-4.2); Glucose 100 mg/dL (74-106); High Density Lipoprotein 67 mg/dL; Potassium 3.8 mmol/L (3.5-5.1); Protein, Total 7.7 g/dL (6.4-8.2); Sodium Level 143 mmol/L (136-145); Thyroid Stim Hormone (TSH) 1.34 uIU/mL (0.358-3.74); Triglycerides 187 mg/dL; Very Low Density Lipoprotein 37 mg/dL (5-40); Vitamin D,25 Hydroxy 99.8 ng/mL
== END | disposition home or self-care (01) ==
PROVIDERS: PCP Family Medicine; Visit Provider Family Medicine
DX: R42 Dizziness and giddiness (principal); E78.5 Hyperlipidemia, unspecified; E55.9 Vitamin D deficiency, unspecified; E03.9 Hypothyroidism, unspecified
CPT/HCPCS: 36415; 80053; 80061; 82306; 84443; 85025

== ENCOUNTER → 2022-02-27 | Outpatient (CLI) | payer MEDICARE, OTHER, SELFPAY ==
--- NOTE | 2022-02-27 13:52 | ECHOCS_ITS ---
Reason For Study: Aortic Stenosis Procedure This was a 2D Doppler, Color Flow transthoracic echocardiogram. Technically difficult study due to patients body habitus. Contrast injection performed. Exam performed in department. Left Ventricle Normal LV size. Left ventricular systolic function is normal. The estimated ejection fraction is 65 %. No regional wall motion abnormalities noted. Right Ventricle Normal RV size. Normal systolic function. Atria The left atrium is moderately enlarged. Normal right atrium. Mitral Valve Bileaflet diffuse mitral valve thickening. Mild-Moderate (1-2+) eccentric mitral valve insufficiency. Tricuspid Valve Normal tricuspid valve. Mild (1+) tricuspid valve insufficiency. Pulmonary artery systolic pressure is 35 mmHg. Aortic Valve Peak aortic valve gradient 59 mmHg. Mean aortic valve gradient 35 mmHg. Mild-Moderate (1-2+) aortic valve insufficiency. Bioprosthetic aortic valve. Pulmonic Valve Normal pulmonic valve. Great Vessels Normal aortic root. The pulmonary artery is normal size. Normal inferior vena cava. Pericardium/Pleural No pericardial effusion. Medication 20 gauge I.V. with prn adaptor inserted into left arm. Diluted definity 2ml given slow IV push to enhance endocardial definition. MMode/2D Measurements & Calculations RVDd: 3.6 cm LVOT diam: 2.0 cm Ao root diam: 3.2 cm LA dimension: 3.5 cm LVOT area: 3.2 cm2 LAV(MOD-bp): 78.5 ml LA A4 area: 27.6 cm2 RA A4 area: 18.9 cm2 LAV(MOD-bp) Indexed: 45.9 ml/m2 LAV(MOD-sp2): 59.6 ml LAV(MOD-sp4): 93.3 ml Time Measurements MV dec time: 0.14 sec Doppler Measurements & Calculations MV E max gaudencio: 133.5 cm/sec Lat Peak E' Gaudencio: 9.6 cm/sec Med Peak E' Gaudencio: 4.8 cm/sec MV A max gaudencio: 92.6 cm/sec E/E' lat: 13.9 E/E' med: 27.8 MV E/A: 1.4 MV V2 max: 141.8 cm/sec MV P1/2t max gaudencio: 140.8 cm/sec Ao V2 max: 384.3 cm/sec MV max P.0 mmHg MV P1/2t: 57.0 msec Ao max P.4 mmHg MV V2 mean: 52.0 cm/sec Ao V2 mean: 278.0 cm/sec MV mean P.6 mmHg MV dec slope: 724.1 cm/sec2 Ao mean P.9 mmHg MV V2 VTI: 51.3 cm MVA(P1/2t): 3.9 cm2 Ao V2 VTI: 98.0 cm MVA(VTI): 1.3 cm2 VICTORIANO(I,D): 0.67 cm2 VICTORIANO(V,D): 0.66 cm2 AI max gaudencio: 415.2 cm/sec LV V1 max: 80.3 cm/sec SV(LVOT): 65.8 ml AI max P.0 mmHg LV V1 max P.6 mmHg AI dec slope: 201.4 cm/sec2 LV V1 mean P.1 mmHg AI P1/2t: 603.9 msec LV V1 mean: 47.5 cm/sec LV V1 VTI: 20.8 cm PA V2 max: 54.1 cm/sec TR max gaudencio: 282.6 cm/sec TR max P.0 mmHg ECHO/Echo Complete W/ Contrast Interpretation Summary Normal LV size. Left ventricular systolic function is normal. The estimated ejection fraction is 65 %. Mean aortic valve gradient 35 mmHg. Mild-Moderate (1-2+) aortic valve insufficiency. Bioprosthetic aortic valve. Compared to the previous the AV area is worse. Contrast injection was performed . Ordering Physician: Nani Quesada Referring Physician: Nani Quesada Performed By: Madan Montgomery RCS
== END | disposition home or self-care (01) ==
LOC: CVS 13:51
PROVIDERS: PCP Family Medicine; Referring Provider Nurse Practitioner Gerontology; Visit Provider Nurse Practitioner Gerontology
DX: I35.0 Nonrheumatic aortic (valve) stenosis (principal); Z95.4 Presence of other heart-valve replacement
CPT/HCPCS: 93306; Q9957; A4216; C8929

== ENCOUNTER → 2022-03-08 | Outpatient (CLI) | payer MEDICARE, OTHER, SELFPAY ==
[2022-03-08 11:55] LABS: Vitamin B12 363 pg/mL (211-911)
== END | disposition home or self-care (01) ==
LOC: LAB 10:58
PROVIDERS: PCP Family Medicine; Referring Provider Family Medicine; Visit Provider Family Medicine
DX: D75.89 Other specified diseases of blood and blood-forming organs (principal); E55.9 Vitamin D deficiency, unspecified
CPT/HCPCS: 36415; 82306; 82607; 82746

== ENCOUNTER → 2022-03-28 | Outpatient (CLI) | payer MEDICARE, OTHER, SELFPAY ==
[2022-03-28 10:09] LABS: Anion Gap 7 (5-15); BUN 16 mg/dL (7-18); BUN/Creat Ratio 20.1 RATIO (10-20); Calcium,Total 9.5 mg/dL (8.5-10.1); Chloride 103 mmol/L (98-107); EST Glomerular Filtration Rate 73 mL/min (>60); Est Glom Filt Rate - Afr Amer 88 mL/min (>60); Glucose 144 mg/dL (74-106); Potassium 3.9 mmol/L (3.5-5.1); Sodium Level 143 mmol/L (136-145)
== END | disposition home or self-care (01) ==
LOC: LAB 09:05
PROVIDERS: PCP Family Medicine; Visit Provider Nurse Practitioner Gerontology
DX: I10 Essential (primary) hypertension (principal)
CPT/HCPCS: 36415; 80048

== ENCOUNTER → 2022-04-19 | Outpatient (CLI) | payer MEDICARE, OTHER, SELFPAY ==
--- NOTE | 2022-04-19 10:00 | PET_ITS ---
EXAMINATION: FDG PET/CT ? INDICATIONS: 86-year-old female with a history of primary breast carcinoma, presenting for presumed initial staging examination. ? COMPARISON EXAMINATION: None available ? INDEX LESION SIZE SUV INTERPRETATION Left breast 47.4 mm 13.5 Fulfills quantitative criteria for viable neoplasm ? TECHNIQUE: Following the intravenous administration of 12.93 mCi of F-18 deoxyglucose via the right antecubital fossa, multiplanar image acquisitions of the neck, chest, abdomen and pelvis to the level of the midthigh, bilateral lower extremities to the level of the bilateral forefoot obtained at one-hour post radiopharmaceutical administration contemporaneously interpreted reveal: ? SERUM GLUCOSE LEVEL:? 126 mg/dL? HEIGHT:?? 62 inches WEIGHT:?? 156 pounds ? FINDINGS: ? HEAD/NECK:? There is no evidence of abnormal increased glucose metabolism in the pharyngeal mucosal space, parapharyngeal space, oropharynx, bilateral-lateral and anterior neck, hypopharynx and distribution of the larynx. Prominent radiopharmaceutical concentration defined in the anterior neck, laryngeal structures, in proximity to the cricopharyngeus musculature is most consistent with physiologic tracer uptake. ? The visualized portion of the cerebral cortical-subcortical structures demonstrate symmetric and preserved glucose metabolism. ? CHEST: Facilitated radiopharmaceutical concentration is noted in the left breast with a calculated standard uptake value of 13.5. The maximal axial diameter of the metabolic, morphologic abnormality is approximately 47.4 mm. There is eventration of the left hemidiaphragm. The left ventricular myocardium visualization is consistent with the [place]. ? CT of the chest demonstrates the following anatomic characteristics: Coronary artery calcification is observed. There is evidence of prior median sternotomy. Atherosclerotic calcification is defined in the thoracic aorta without evidence of dilatation, aneurysm formation. Bilateral axillary soft tissue densities demonstrate no evidence of increased FDG uptake. Mediastinal soft tissue densities are nonglucose avid. ? ABDOMEN/PELVIS:? Normal physiologic distribution of the radiopharmaceutical is identified in the hepatic (3.6) and splenic parenchyma, both renal units, urinary bladder, and visualized intestinal tract. ? CT of the abdomen and pelvis is remarkable for the following: The gallbladder is surgically absent. Atherosclerotic calcification is defined in the abdominal aorta without evidence of dilatation, aneurysm formation. Pelvic arterial calcification is observed. Calcifications are identified within the uterus without increased uptake. Calcified phlebolith formation is noted. Bilateral fat containing inguinal hernias are noted. Right and left inguinal subcentimeter soft tissue densities are nonglucose avid. Abdominal-pelvic arterial calcification is observed. Calcification is encountered in the right kidney. ? SKELETAL:? There is no evidence of quantitatively significant enhanced glucose metabolism on meticulous inspection of the appendicular and axial skeletal structures. ? Degenerative changes defined in the thoracic and lumbar spine demonstrate no evidence of increased glucose metabolism. There are no sclerotic, mixed sclerotic-lytic, or primarily lytic changes defined in the axial skeletal structures with evidence of increased FDG uptake. ? PET/PET/CT Tumor WB Initial IMPRESSION: 1. ABNORMAL EXAMINATION INDICATIVE OF MALIGNANT-VIABLE NEOPLASM. 2. Increased FDG concentration manifest in the left breast fulfills quantitative criteria for viable neoplasm. 3. No other quantitatively significant metabolic abnormalities are noted. There is no scintigraphic evidence of distant metastatic disease. Electronic Signature David Ansari D.O. Accurate Quantification of SUVs for this report are calculated using the exclusive [employer]. ([place].S. Patent No. 10, [id number] 983). Standardization and correction of the FDG SUV metric via [employer] technology allow for vendor non-specific objective quantitative examination comparison and optimization of the sensitivity and specificity of the FDG PET-CT examination. Electronically Signed: David Ansari, at 22:37 EST ,
== END | disposition home or self-care (01) ==
LOC: ONC 09:39
PROVIDERS: PCP Family Medicine; Referring Provider Surgery; Visit Provider Surgery
DX: C50.812 Malignant neoplasm of overlapping sites of left female breast (principal); Z17.0 Estrogen receptor positive status [ER+]
CPT/HCPCS: 78816; A9552

== ENCOUNTER → 2022-08-04 | Outpatient (CLI) | payer MEDICARE, SELFPAY ==
[2022-08-04 10:50] LABS: Anion Gap 5 (5-15); BUN 17 mg/dL (7-18); BUN/Creat Ratio 23.9 RATIO (10-20); Calcium,Total 9.7 mg/dL (8.5-10.1); Chloride 106 mmol/L (98-107); Creatinine, Serum 0.71 mg/dL (0.55-1.02); EST Glomerular Filtration Rate 83 mL/min (>60); Est Glom Filt Rate - Afr Amer 100 mL/min (>60); Glucose 105 mg/dL (74-106); Sodium Level 144 mmol/L (136-145); Thyroid Stim Hormone (TSH) 2.23 uIU/mL (0.358-3.74)
== END | disposition home or self-care (01) ==
LOC: LAB 09:06
PROVIDERS: PCP Family Medicine; Referring Provider Family Medicine; Visit Provider Family Medicine
DX: E78.5 Hyperlipidemia, unspecified (principal)
CPT/HCPCS: 36415; 80048; 84443

== ENCOUNTER → 2023-02-12 | Outpatient (CLI) | payer MEDICARE, SELFPAY ==
[2023-02-12 09:16] LABS: Absolute Lymphocyte Count 1.69 X10^3/uL (0.83-4.51); Absolute Neutrophil Count 3.4 X10^3/uL (2.0-7.7); Basophil# 0.05 X10^3/uL; Basophil% 0.8 % (0-1); Eosinophils% 3.4 % (0-5); Hematocrit 44.2 % (37-47); Hemoglobin 13.6 g/dL (12.0-15.0); Lymphocyte # 1.69 X10^3/ul (0.83-4.51); Lymphocyte % 28.7 % (19-41); Mean Corp Hgb Conc 30.8 g/dL (32-36); Mean Corpuscular Hgb 32.3 pg (27.0-32.0); Mean Platelet Vol. 9.9 fl (6.2-12.0); Monocyte# 0.55 X10^3/uL; Monocyte% 9.3 % (0-10); NRBC Flagged by Analyzer 0 % (0-5); Neutrophil # 3.38 X10^3/uL (2.7-7.7); Neutrophil % 57.5 % (47-70); Platelet Count 170 K/mm3 (150-450); RBC Distribution Width SD 50.3 fl (35.1-43.9); Red Blood Count 4.21 M/mm3 (4.2-5.4); White Blood Count 5.9 K/mm3 (4.4-11.0)
[2023-02-12 09:59] LABS: AST(SGOT) 25 U/L (15-37); Alanine Aminotransfer ALT/SGPT 23 U/L (13-56); Albumin, Serum 3.4 g/dL (3.2-5.0); Alkaline Phosphatase 79 U/L (45-117); Anion Gap 5 (5-15); BUN 17 mg/dL (7-18); BUN/Creat Ratio 17.9 RATIO (10-20); Calcium,Total 8.6 mg/dL (8.5-10.1); Chloride 104 mmol/L (98-107); Creatinine, Serum 0.95 mg/dL (0.55-1.02); EST Glomerular Filtration Rate 59 mL/min (>60); Est Glom Filt Rate - Afr Amer 72 mL/min (>60); Globulin 3.4 g/dL (2.2-4.2); Glucose 136 mg/dL (74-106); Potassium 3.7 mmol/L (3.5-5.1); Protein, Total 6.8 g/dL (6.4-8.2); Sodium Level 140 mmol/L (136-145); Thyroid Stim Hormone (TSH) 3.54 uIU/mL (0.358-3.74)
== END | disposition home or self-care (01) ==
LOC: LAB 08:38
PROVIDERS: PCP Family Medicine; Referring Provider Family Medicine; Visit Provider Family Medicine
DX: E03.9 Hypothyroidism, unspecified (principal)
CPT/HCPCS: 36415; 80053; 84443; 85025

== ENCOUNTER 2023-04-17 17:28 | Inpatient (IN) | payer MEDICARE, SELFPAY ==
[2023-04-17 17:29] VITALS: BP 119/81; PULSE 90; RESP 17; TEMP 36.3; O2SAT 96
--- NOTE | 2023-04-17 17:50 | RAD_ITS ---
INDICATION: fall EXAMINATION/TECHNIQUE: X-RAY - LEFT XR Femur Min 2 Views 4 VIEWS COMPARISON: FINDINGS: Nondisplaced subcapital fracture of the left femoral neck with minimal valgus angulation. Enthesopathic calcification arising from the medial femoral condyle versus tendinous calcification. Joint spaces are well-maintained. Normal alignment. Vascular calcifications. No radiopaque foreign body or soft tissue gas. RAD/Femur Min 2 Views IMPRESSION: Subcapital fracture of the left femoral neck. Electronically Signed: Xiomara Cain MD at 18:29 EST Reading Location ID and State: [id number] / Tel , Service support ,
[2023-04-17 18:29] VITALS: BMI 25.7
--- NOTE | 2023-04-17 18:45 | RAD_ITS ---
INDICATION: trauma EXAMINATION/TECHNIQUE: X-RAY - XR Pelvis 1 or 2 Views COMPARISON: X-ray femur 04/17/2023. FINDINGS: Sclerosis along the lateral aspect of the left femoral neck suspicious for nondisplaced subcapital fracture. Degenerative changes of the lower lumbar spine. Joint spaces are well-maintained. Normal alignment. Soft tissues are unremarkable. No radiopaque foreign body or soft tissue gas. RAD/Pelvis 1 or 2 Views IMPRESSION: Findings suspicious for nondisplaced subcapital fracture of the left femoral neck. This is better demonstrated on the x-ray femur. Electronically Signed: Xiomara Cain MD at 20:37 EST Reading Location ID and State: [id number] / Tel , Service support ,
--- NOTE | 2023-04-17 18:45 | EKG12_ITS ---
Test Reason : DYSRHYTHMIA Blood Pressure : / mmHG Vent. Rate : 100 BPM Atrial Rate : 000 BPM P-R Int : 000 ms QRS Dur : 092 ms QT Int : 338 ms P-R-T Axes : 000 -19 136 degrees QTc Int : 436 ms SINUS TACHYCARDIA with occasional Premature ventricular complexes Left ventricular hypertrophy with repolarization abnormality ( R in aVL ) Cannot rule out Septal infarct , age undetermined Abnormal ECG When compared with ECG of 03-DEC-2021 19:08, Junctional rhythm has replaced Sinus rhythm Vent. rate has increased BY 37 BPM Minimal criteria for Septal infarct are now Present ST now depressed in Lateral leads Inverted T waves have replaced nonspecific T wave abnormality in Lateral leads Confirmed by ALEXANDRU WINTERS, LUX ([id number]), photography editor MILADYS WHITMAN ([id number]) on 04/19/2023 9:20:21 AM Referred By: Confirmed By:LUX HORVATH MD
--- NOTE | 2023-04-17 18:46 | ED.VIS.FALL ---
HPI HPI - Fall History of Present Illness Chief Complaint: Fall Informant: patient and family Narrative Narrative: Patient presents with left thigh pain after a fall. Patient is been coming out of the [email or web address] shop. She felt fine. She thinks she might of caught her toe causing her to fall. She was never syncopal. She did not pass out. She did not hit her head now although she did bump her head about 2 weeks ago. She is not on blood thinners including not on aspirin or Plavix. She states everything is fine except that hurts in her mid left thigh and she cannot bear weight. [facility] Medical History Anemia Chronic diastolic (congestive) heart failure Closed fracture dislocation of left ankle joint Closed left ankle fracture Debility Decubitus ulcer of ankle, stage 2 Diaphragmatic paralysis Edema Essential (primary) hypertension Hypokalemia Hypothyroidism Hypothyroidism Non-rheumatic aortic stenosis Normochromic normocytic anemia Obesity Obstructive sleep apnea ANDRY (obstructive sleep apnea) Physical debility Polio Prosthetic aortic valve stenosis Secondary pulmonary arterial hypertension Ventricular ectopy Vertigo Vertigo Home Medications calcium carbonate 600 mg-vitamin D3 20 mcg (800 unit) tablet 1 tab PO DAILY supplement 06/30/19 [History Last Taken 07/25/19 08:19] cholecalciferol (vitamin D3) 25 mcg (1,000 unit) tablet 1,000 unit PO DAILY supplement 06/30/19 [History Last Taken 07/25/19 08:22] multivitamin with minerals 1 tab PO DAILY supplement 06/30/19 [History Last Taken 07/25/19 08:19] potassium chloride 10 mEq tablet,extended release(part/cryst) 10 meq PO BIDCM 08/22/19 [Rx Last Taken Unknown] meclizine 25 mg tablet 25 mg PO TID PRN PRN dizziness #21 tabs 12/04/21 [Rx Last Taken Unknown] furosemide 40 mg tablet 40 mg PO DAILY #90 tabs 05/23/22 [Rx Last Taken Unknown] levothyroxine 75 mcg tablet 75 mcg PO DAILY #90 tabs 05/23/22 [Rx Last Taken Unknown] metoprolol succinate 25 mg tablet,extended release 24 hr 25 mg PO DAILY #90 tabs 08/28/22 [Rx Last Taken Unknown] Allergy/AdvReac Type Severity Reaction Status Date / Time aspirin Allergy made my Verified 04/17/23 17:29 blood too thin hydrocodone [From Vicodin] Allergy feels Verified 04/17/23 17:29 like getting high niacin AdvReac severe Verified 04/17/23 17:29 sweating simvastatin AdvReac muscle Verified 04/17/23 17:29 aches Family History Father Dementia Mother Liver cirrhosis Sister Aortic valve disease Brother Dementia Surgical History H/O breast biopsy H/O colonoscopy History of aortic valve replacement with bioprosthetic valve (05/06/12) History of aortic valve replacement with bioprosthetic valve History of open reduction and internal fixation (ORIF) procedure (07/09/19) History of parathyroidectomy History of partial mastectomy of left breast History of right and left heart catheterization (09/01/11) History of tonsillectomy and adenoidectomy Hx of cholecystectomy Social History household members: none Smoking Status: Never smoker alcohol intake: current alcohol intake frequency: holidays/special occasions only substance use type: does not use caffeine: Yes Type: coffee Number of servings: 1 ROS ROS ED Constitutional Constitutional ED: Denies chills or fever(s) Eyes Eyes: Denies blurry vision or change in vision Cardiovascular Cardiovascular: Denies chest pain, palpitations or racing heartbeat Respiratory/Chest Respiratory/Chest: Denies cough or dyspnea Gastrointestinal Gastrointestinal: Denies nausea or vomiting Musculoskeletal Musculoskeletal: Reports arthralgias; Denies back pain or neck pain Integumentary Denies Abrasions or rash Neurologic Neurologic: Denies headache(s) Endocrine Endocrinology: Denies polydipsia or polyuria Hematologic/Lymphatic Hematologic/Lymphatic: Denies easy bleeding or easy bruising Allergic/Immunologic Allergic/Immunologic ED: Denies urticaria EXAM Physical Exam Narrative Exam Narrative: General: Patient awake alert no acute distress. She is a very good informant for her history. HEENT: There is some resolving bruising near the left eye. But no tenderness or step-off. This is from a fall weeks ago. Neck is supple no tenderness. Heart is regular. Lungs are clear bilaterally. Saturations are normal at 96% on room air showing no hypoxia. Abdomen soft nontender Back shows no cervical thoracic or lumbar tenderness and pelvis is stable. Extremities do have pain with motion of the left leg. It is slightly externally rotated clinically. Although she has pain in the mid thigh it is not tender there. Const Vital Signs: 04/17/23 17:29 04/17/23 18:26 04/17/23 20:32 Temperature 97.4 F L Temperature Source Temporal Pulse Rate 90 102 H Respiratory Rate 17 21 H Respiratory Effort Normal Blood Pressure 119/81 H 102/87 H Blood Pressure Mean 93 92 Pulse Ox 96 94 Oxygen Delivery Method Room Air Room Air Nasal Cannula MDM MDM MDM Narrative Medical decision making narrative: Patient had a nursing protocol x-ray done. My independent interpretation of her 4 view left femur does show a femoral neck fracture on the left. Final reading is similar. I will add dedicated hip films. With her fall and fracture she will have to come in. We will do blood work chest x-ray and EKG to assist with clearance. My independent interpretation of her chest x-ray shows findings that may be consistent with hiatal hernia. Final reading is no acute process by radiology. My independent interpretation of her pelvis view shows the hip fracture but no other acute process this is consistent with final read. Patient CBC does show a high white count. This may be demargination from pain and trauma. But we did add a urinalysis even though the patient has no symptoms. Patient's electrolytes show no marked abnormalities. Glucose is slightly 131. Patient's urinalysis is clean shows no sign of infection. I discussed the case with orthopedic surgeon Dr. Pinto as well as Dr. Ochoa. Patient will be admitted. Lab Data Attestation: I reviewed the patient's lab results. Labs: Laboratory Results - last 24 hr 04/17/23 04/17/23 04/17/23 19:10 19:45 20:28 WBC 15.2 H RBC 4.38 Hgb 13.7 Hct 44.2 MCV 100.9 H MCH 31.3 MCHC 31.0 L RDW Std Deviation 51.9 H RDW Coeff of Junior 14.0 Plt Count 264 MPV 10.1 Immature Gran % (Auto) 0.600 Neut % (Auto) 86.0 H Lymph % (Auto) 8.6 L [place] % (Auto) 3.9 Eos % (Auto) 0.4 Baso % (Auto) 0.5 Absolute Neuts (auto) 13.1 H Absolute Lymphs (auto) 1.31 Nucleated RBC % 0 Sodium 141 Potassium 3.9 Chloride 104 Carbon Dioxide 32.0 Anion Gap 5 BUN 18 Creatinine 0.80 Estim Creat Clear Calc 46.26 Est GFR (MDRD) Af Amer 88 Est GFR (MDRD) Non-Af 72 BUN/Creatinine Ratio 22.5 H Glucose 131 H Calcium 9.5 Urine Color Yellow Urine Clarity Clear Urine pH 6.0 Ur Specific [place] 1.025 Urine Protein 30 H Urine Glucose (UA) Normal Urine Ketones 50 H Urine Occult Blood Negative Urine Nitrite Negative Urine Bilirubin Negative Urine Urobilinogen Normal Ur Leukocyte Esterase 25 H Urine RBC 0 SEEN Urine WBC 0 SEEN Ur Squamous Epith Cells 0 SEEN Urine Bacteria 0 SEEN Urine Mucus 0 SEEN POC Glucose 155 H Radiography Diagnostic Testing: Clinical Impression(s) from Imaging Studies Femur X-Ray 04/17/23 17:50 IMPRESSION: Subcapital fracture of the left femoral neck. Electronically Signed: Xiomara Cain MD at 18:29 EST Reading Location ID and State: Taisha Augustine MD Tel , Service support , Pelvis X-Ray 04/17/23 18:45 IMPRESSION: Findings suspicious for nondisplaced subcapital fracture of the left femoral neck. This is better demonstrated on the x-ray femur. Electronically Signed: Xiomara Cain MD at 20:37 EST Reading Location ID and State: Taisha Augustine MD Tel , Service support , Chest X-Ray 04/17/23 19:25 IMPRESSION: No radiographic evidence of acute cardiopulmonary disease. Electronically Signed: Xiomara Cain MD at 20:40 EST Reading Location ID and State: Taisha Augustine MD Tel , Service support , EKG Initial EKG: Comments: My independent interpretation of the patient's EKG shows possible junctional rhythm. On some of the complexes there appears to be a P wave however. Patient is not having palpitations at all. QRS duration and QTc are normal. Discharge Plan Triage Chief Complaint: Fall ED Provider: Deon Dickerson Dx/Rx/DC Orders Clinical Impression: Family history of polio, Fall from slip, trip, or stumble, Leukocytosis, Fracture of left hip Primary Care Provider: Ethan Lau Disposition Disposition: Acute Care [facility]
[2023-04-17] MEDS: Ondansetron 4 MG/2 ML Vial IV ×2 (19:11→19:46)
[2023-04-17] MEDS: fentaNYL 100 MCG/2 ML Ampul 25 MCG IV (19:11)
[2023-04-17 19:18] LABS: Absolute Lymphocyte Count 1.31 X10^3/uL (0.83-4.51); Absolute Neutrophil Count 13.1 X10^3/uL (2.0-7.7); Basophil# 0.07 X10^3/uL; Basophil% 0.5 % (0-1); Eosinophil# 0.06 X10^3/uL; Eosinophils% 0.4 % (0-5); Hematocrit 44.2 % (37-47); Hemoglobin 13.7 g/dL (12.0-15.0); Lymphocyte # 1.31 X10^3/ul (0.83-4.51); Lymphocyte % 8.6 % (19-41); Mean Corpuscular Hgb 31.3 pg (27.0-32.0); Mean Corpuscular Volume 100.9 fL (81-99); Mean Platelet Vol. 10.1 fl (6.2-12.0); Monocyte# 0.59 X10^3/uL; Monocyte% 3.9 % (0-10); NRBC Flagged by Analyzer 0 % (0-5); Neutrophil # 13.07 X10^3/uL (2.7-7.7); Platelet Count 264 K/mm3 (150-450); RBC Distribution Width SD 51.9 fl (35.1-43.9); Red Blood Count 4.38 M/mm3 (4.2-5.4); White Blood Count 15.2 K/mm3 (4.4-11.0)
--- NOTE | 2023-04-17 19:25 | RAD_ITS ---
INDICATION: Trauma EXAMINATION/TECHNIQUE: X-RAY - XR Chest 1 View COMPARISON: FINDINGS: LINES/DEVICES: None. LUNGS: Elevated left hemidiaphragm consistent with prior sternotomy. MEDIASTINUM AND CARDIOVASCULAR STRUCTURES: Cardiac silhouette not enlarged. Central airways and mediastinal contour are unremarkable. BONES AND SOFT TISSUES: Remote healed rib fractures. RAD/Chest 1 View (Portable) IMPRESSION: No radiographic evidence of acute cardiopulmonary disease. Electronically Signed: Xiomara Cain MD at 20:40 EST Reading Location ID and State: [id number] / Tel , Service support ,
[2023-04-17 19:31] LABS: Anion Gap 5 (5-15); BUN 18 mg/dL (7-18); BUN/Creat Ratio 22.5 RATIO (10-20); Calcium,Total 9.5 mg/dL (8.5-10.1); Chloride 104 mmol/L (98-107); EST Glomerular Filtration Rate 72 mL/min (>60); Est Glom Filt Rate - Afr Amer 88 mL/min (>60); Estimated Creatinine Clearance 46.26 ml/min; Glucose 131 mg/dL (74-106); Potassium 3.9 mmol/L (3.5-5.1); Sodium Level 141 mmol/L (136-145)
[2023-04-17 20:02] LABS: Bedside Glucose 155 mg/dL (74-106)
[2023-04-17 20:32] VITALS: BP 102/87; PULSE 102; RESP 21; O2SAT 94
[2023-04-17 20:37] LABS: Bacteria 0 SEEN /hpf (None Seen); Mucous, Urine 0 SEEN /hpf (<or=2+); Red Blood Cells-Urine 0 SEEN /hpf (0-5); Squamous Epithelial Cells - UA 0 SEEN /hpf (5-10); White Blood Cells 0 SEEN /hpf (0-5)
[2023-04-17 20:50] LABS: Color, Urine Yellow (Yellow); Glucose, Dipstick Normal (Normal); Ketone-Dipstick 50 mg/dl (Negative); Leukocyte Esterase-Dipstick 25 /ul (Negative); Nitrite-Dipstick Negative (Negative); Occult Blood-Urine Negative /ul (Negative); Protein-Dipstick 30 mg/dl (Negative); Specific Gravity, Urine 1.025 (1.002-1.030); Urine Bilirubin Dipstick Negative (Negative); Urine Clarity Clear (Clear); Urine Urobilinogen Normal (Normal)
--- NOTE | 2023-04-17 21:33 | HP.PCM.HOS_ITS ---
[facility] - General General Date of Admission: 04/17/23 Date of Service: 04/17/23 Chief Complaint: Fall. Left hip pain. HPI Narrative JESSY DAIGLE, is a 87 F who presents after a fall. 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 She thinks that she may have tripped over something and landed on her buttocks. She was able to get herself up but did have left hip pain. She was able to walk to her car and drive to her home and get into her home. She reached out to her sister who came and saw her and had the patient sent to the emergency room. Patient was found to have a nondisplaced subcapital fracture of the left femoral neck. The emergency room physician reached out to Dr. Chaudhry, of orthopedics, who stated that he would be willing to see the patient and would plan on doing surgery on . [facility] Medical History Anemia Chronic diastolic (congestive) heart failure Closed fracture dislocation of left ankle joint Closed left ankle fracture Debility Decubitus ulcer of ankle, stage 2 Diaphragmatic paralysis Edema Essential (primary) hypertension Hypokalemia Hypothyroidism Hypothyroidism Non-rheumatic aortic stenosis Normochromic normocytic anemia Obesity Obstructive sleep apnea ANDRY (obstructive sleep apnea) Physical debility Polio Prosthetic aortic valve stenosis Secondary pulmonary arterial hypertension Ventricular ectopy Vertigo Vertigo Home Medications calcium carbonate 600 mg-vitamin D3 20 mcg (800 unit) tablet 1 tab PO DAILY supplement 06/30/19 [History Last Taken 07/25/19 08:19] cholecalciferol (vitamin D3) 25 mcg (1,000 unit) tablet 1,000 unit PO DAILY supplement 06/30/19 [History Last Taken 07/25/19 08:22] multivitamin with minerals 1 tab PO DAILY supplement 06/30/19 [History Last Taken 07/25/19 08:19] potassium chloride 10 mEq tablet,extended release(part/cryst) 10 meq PO BIDCM 08/22/19 [Rx Last Taken Unknown] meclizine 25 mg tablet 25 mg PO TID PRN PRN dizziness #21 tabs 12/04/21 [Rx Last Taken Unknown] furosemide 40 mg tablet 40 mg PO DAILY #90 tabs 05/23/22 [Rx Last Taken Unknown] levothyroxine 75 mcg tablet 75 mcg PO DAILY #90 tabs 05/23/22 [Rx Last Taken Unknown] metoprolol succinate 25 mg tablet,extended release 24 hr 25 mg PO DAILY #90 tabs 08/28/22 [Rx Last Taken Unknown] Allergy/AdvReac Type Severity Reaction Status Date / Time aspirin Allergy made my Verified 04/17/23 17:29 blood too thin hydrocodone [From Vicodin] Allergy feels Verified 04/17/23 17:29 like getting high niacin AdvReac severe Verified 04/17/23 17:29 sweating simvastatin AdvReac muscle Verified 04/17/23 17:29 aches Family History Father Dementia Mother Liver cirrhosis Sister Aortic valve disease Brother Dementia Surgical History H/O breast biopsy H/O colonoscopy History of aortic valve replacement with bioprosthetic valve (05/06/12) History of aortic valve replacement with bioprosthetic valve History of open reduction and internal fixation (ORIF) procedure (07/09/19) History of parathyroidectomy History of partial mastectomy of left breast History of right and left heart catheterization (09/01/11) History of tonsillectomy and adenoidectomy Hx of cholecystectomy Social History household members: none Smoking Status: Never smoker alcohol intake: current alcohol intake frequency: holidays/special occasions only substance use type: does not use caffeine: Yes Type: coffee Number of servings: 1 ROS ROS Narrative Chronically short of breath but patient is independent on her own. Patient does go to [employer] 3 times per week. All review of systems were negative except as mentioned above in the history of present illness and the other review of systems. Vital Signs Vital Signs Vital Signs: 04/17/23 17:29 04/17/23 18:26 04/17/23 20:32 Temperature 36.3 C L Temperature Source Temporal Pulse Rate 90 102 H Respiratory Rate 17 21 H Respiratory Effort Normal Blood Pressure 119/81 H 102/87 H Blood Pressure Mean 93 92 Pulse Ox 96 94 Oxygen Delivery Method Room Air Room Air Nasal Cannula Weight Weight: 70.3 kg Body Mass Index (BMI) 25.7 Physical Exam Narrative - Physical Exam General: Alert, Oriented x3, Cooperative HEENT: Atraumatic, PERRLA, EOMI, Normocephalic Oral: Moist Mucosa, No Gingival or Mucosal Lesions/ Ulcerations Neck: Supple, No JVD, Negative Carotid Bruits Lungs: Clear to auscultation, Normal air movement Cardiovascular: Regular rate, 2 out of 6 systolic ejection murmur at the right upper sternal border. Abdomen: Bowel Sounds Present, Soft, Non Tender, Non-Distended, No Hepato- splenomegaly Extremities: No clubbing, No cyanosis, No edema, Capillary Refill Less than 3 Seconds Skin: No rashes, No breakdown Musculoskeletal: No Tenderness to Palpation of Joints or Extremities Neurological: Neuro grossly intact Psych/Mental Status: Normal Affect, Appropriate Results Lab / Micro Data Attestation: I reviewed the patient's lab results. 04/17/23 19:10 04/17/23 19:10 Labs: Laboratory Results - last 24 hr 04/17/23 19:10: WBC 15.2 H, RBC 4.38, Hgb 13.7, Hct 44.2, MCV 100.9 H, MCH 31.3, MCHC 31.0 L, RDW Std Deviation 51.9 H, RDW Coeff of Junior 14.0, Plt Count 264, MPV 10.1, Immature Gran % (Auto) 0.600, Neut % (Auto) 86.0 H, Lymph % (Auto) 8.6 L, [place] % (Auto) 3.9, Eos % (Auto) 0.4, Baso % (Auto) 0.5, Absolute Neuts (auto) 13.1 H, Absolute Lymphs (auto) 1.31, Nucleated RBC % 0, Sodium 141, Potassium 3. 9, Chloride 104, Carbon Dioxide 32.0, Anion Gap 5, BUN 18, Creatinine 0.80, Estim Creat Clear Calc 46.26, Est GFR (MDRD) Af Amer 88, Est GFR (MDRD) Non-Af 72, BUN/Creatinine Ratio 22.5 H, Glucose 131 H, Calcium 9.5 04/17/23 19:45: POC Glucose 155 H 04/17/23 20:28: Urine Color Yellow, Urine Clarity Clear, Urine pH 6.0, Ur Specific [place] 1.025, Urine Protein 30 H, Urine Glucose (UA) Normal, Urine Ketones 50 H, Urine Occult Blood Negative, Urine Nitrite Negative, Urine Bilirubin Negative, Urine Urobilinogen Normal, Ur Leukocyte Esterase 25 H, Urine RBC 0 SEEN, Urine WBC 0 SEEN, Ur Squamous Epith Cells 0 SEEN, Urine Bacteria 0 SEEN, Urine Mucus 0 SEEN EKG Initial EKG: Attestation: I personally reviewed and interpreted this EKG as follows: Prior EKG tracings: available for review EKG Rhythm Intrepretation: Sinus Rhythm (With PVCs.) Imagaing Radiology Impression Femur X-Ray 04/17/23 17:50 IMPRESSION: Subcapital fracture of the left femoral neck. Electronically Signed: Xiomara Cain MD at 18:29 EST Reading Location ID and State: Taisha Augustine MD Tel , Service support , Pelvis X-Ray 04/17/23 18:45 IMPRESSION: Findings suspicious for nondisplaced subcapital fracture of the left femoral neck. This is better demonstrated on the x-ray femur. Electronically Signed: Xiomara Cain MD at 20:37 EST Reading Location ID and State: Taisha Augustine MD Tel , Service support , Chest X-Ray 04/17/23 19:25 IMPRESSION: No radiographic evidence of acute cardiopulmonary disease. Electronically Signed: Xiomara Cain MD at 20:40 EST Reading Location ID and State: Taisha Augustine MD Tel , Service support , Assessment & Plan Assessment/Plan (1) Fracture of left hip: QUALIFIERS: Encounter type: initial encounter Fracture type: closed Qualified Code(s): S72.002A - Fracture of unspecified part of neck of left femur, initial encounter for closed fracture (2) Leukocytosis: QUALIFIERS: Leukocytosis type: other Qualified Code(s): D72.828 - Other elevated white blood cell count PLAN: Plan Left hip fracture: Status post mechanical fall. Orthopedics has been contacted for the emergency room and plan is for surgery on the . Patient has a good performance status and is medically cleared to proceed with the surgery. Patient is medically optimized to proceed. Will check a 25-hydroxy vitamin D level. Bedrest. Pain control. PT OT evaluate and treat. Leukocytosis: Suspect reactive. Will follow-up in the morning. Urinalysis was unremarkable. Chronic conditions * Postpolio syndrome with left-sided weakness * Status post aortic valve bioprosthetic replacement. * ANDRY: Continue with BiPAP with oxygen bleed. At night. The discussed with the patient's grandson who is at bedside and he stated that he will try to bring him in tonight. * Hypertension: Continue with metoprolol succinate and furosemide. * Hypothyroidism: Continue levothyroxine. VTE prophylaxis SCDs for now. Chemical prophylaxis after surgery. CODE STATUS: Addressed with patient. Patient wishes to be DNR Comfort Care ar rest. She is okay with short-term intubation. Disposition: Anticipate patient will require shelter facility when she is ready for discharge. Charges/Coding Visit Charges Inpatient E&M: 49655 Init Hosp L3
[2023-04-17 21:36] VITALS: PULSE 90; RESP 22; O2SAT 90
[2023-04-17 22:31] VITALS: BMI 27.3
[2023-04-17 22:34] VITALS: BP 110/59; PULSE 103; RESP 17; TEMP 36.8; O2SAT 91
[2023-04-17] MEDS: oxyCODONE 5 MG Tablet PO (23:03)
[2023-04-17] MEDS: Acetaminophen 325 MG Tablet 650 MG PO (23:03)
[2023-04-17 23:36] LABS: ALB/GLOB Ratio 0.9 RATIO (0.9-2.4); AST(SGOT) 42 U/L (15-37); Alanine Aminotransfer ALT/SGPT 29 U/L (13-56); Albumin, Serum 3.6 g/dL (3.2-5.0); Alkaline Phosphatase 97 U/L (45-117); Globulin 4.1 g/dL (2.2-4.2); Protein, Total 7.7 g/dL (6.4-8.2)
[2023-04-18] VITALS (14 sets, daily range): BP systolic 94–124; BP diastolic 41–60; PULSE 72–96; RESP 16–20; TEMP 36.6–37.1; O2SAT 85–95
[2023-04-18] MEDS: Levothyroxine 75 MCG Tablet PO (05:15)
[2023-04-18 07:59] LABS: Absolute Lymphocyte Count 1.07 X10^3/uL (0.83-4.51); Absolute Neutrophil Count 8.7 X10^3/uL (2.0-7.7); Basophil# 0.06 X10^3/uL; Basophil% 0.6 % (0-1); Eosinophil# 0.32 X10^3/uL; Hematocrit 40.2 % (37-47); Hemoglobin 12.1 g/dL (12.0-15.0); Lymphocyte # 1.07 X10^3/ul (0.83-4.51); Lymphocyte % 9.9 % (19-41); Mean Corp Hgb Conc 30.1 g/dL (32-36); Mean Corpuscular Hgb 31.3 pg (27.0-32.0); Mean Corpuscular Volume 104.1 fL (81-99); Mean Platelet Vol. 10.3 fl (6.2-12.0); Monocyte% 5.6 % (0-10); NRBC Flagged by Analyzer 0 % (0-5); Neutrophil # 8.69 X10^3/uL (2.7-7.7); Neutrophil % 80.3 % (47-70); Platelet Count 239 K/mm3 (150-450); RBC Distribution Width CV 14.3 % (11.6-14.6); RBC Distribution Width SD 54.6 fl (35.1-43.9); Red Blood Count 3.86 M/mm3 (4.2-5.4); White Blood Count 10.8 K/mm3 (4.4-11.0)
--- NOTE | 2023-04-18 08:34 | PCM.PN.HOSP ---
Reason for Visit Reason for Visit: Diagnoses Other elevated white blood cell count (04/17/23) Fracture of unspecified part of neck of left femur, initial encounter for closed fracture (04/17/23) Subjective Subjective Patient seen at bedside, just had her BiPAP taken off and O2 sats in the 70s with good pleth but patient in no respiratory distress, not tachypneic, does not feel short of breath. Repeated multiple times that this was normal for her but when placed back on BiPAP sats came up into the mid 90s, other than pain in left hip she continued to deny any respiratory or cardiac complaints Objective Data Objective Data Vital Signs: Vital Signs Temp Pulse Resp BP Pulse Ox O2 Del Method O2 Flow Rate 98.7 F 73 20 H 94/49 L 93 Bi-pap 2 04/18/23 05:15 04/18/23 05:15 04/18/23 05:15 04/18/23 05:15 04/18/23 05:15 04/18/23 05:15 04/18/23 05:15 Oxygen Flow Rate (L/min) 2 Oxygen Delivery Method Bi-pap Weight: 68 kg Body Mass Index (BMI) 27.3 Intake & Output: Intake and Output for Last 24 Hours 04/16/23 04/17/23 04/18/23 23:59 23:59 23:59 Intake Total 300 / 300 Balance 300 / 300 Lab / Micro Data 04/18/23 06:48 04/17/23 19:10 Labs: Laboratory Results - last 24 hr 04/17/23 19:10: WBC 15.2 H, RBC 4.38, Hgb 13.7, Hct 44.2, MCV 100.9 H, MCH 31.3, MCHC 31.0 L, RDW Std Deviation 51.9 H, RDW Coeff of Junior 14.0, Plt Count 264, MPV 10.1, Immature Gran % (Auto) 0.600, Neut % (Auto) 86.0 H, Lymph % (Auto) 8.6 L, [place] % (Auto) 3.9, Eos % (Auto) 0.4, Baso % (Auto) 0.5, Absolute Neuts (auto) 13.1 H, Absolute Lymphs (auto) 1.31, Nucleated RBC % 0, Sodium 141, Potassium 3.9, Chloride 104, Carbon Dioxide 32.0, Anion Gap 5, BUN 18, Creatinine 0.80, Estim Creat Clear Calc 46.26, Est GFR (MDRD) Af Amer 88, Est GFR (MDRD) Non-Af 72, BUN/Creatinine Ratio 22.5 H, Glucose 131 H, Calcium 9.5, Total Bilirubin 0.50, AST 42 H, ALT 29, Alkaline Phosphatase 97, Total Protein 7.7, Albumin 3.6, Globulin 4.1, Albumin/Globulin Ratio 0.9 04/17/23 19:45: POC Glucose 155 H 04/17/23 20:28: Urine Color Yellow, Urine Clarity Clear, Urine pH 6.0, Ur Specific [place] 1.025, Urine Protein 30 H, Urine Glucose (UA) Normal, Urine Ketones 50 H, Urine Occult Blood Negative, Urine Nitrite Negative, Urine Bilirubin Negative, Urine Urobilinogen Normal, Ur Leukocyte Esterase 25 H, Urine RBC 0 SEEN, Urine WBC 0 SEEN, Ur Squamous Epith Cells 0 SEEN, Urine Bacteria 0 SEEN, Urine Mucus 0 SEEN 04/18/23 06:48: WBC 10.8, RBC 3.86 L, Hgb 12.1, Hct 40.2, MCV 104.1 H, MCH 31.3, MCHC 30.1 L, RDW Std Deviation 54.6 H, RDW Coeff of Junior 14.3, Plt Count 239, MPV 10.3, Immature Gran % (Auto) 0.600, Neut % (Auto) 80.3 H, Lymph % (Auto) 9.9 L, [place] % (Auto) 5.6, Eos % (Auto) 3.0, Baso % (Auto) 0.6, Absolute Neuts (auto) 8.7 H, Absolute Lymphs (auto) 1.07, Nucleated RBC % 0 Radiography Diagnostic Testing: Radiology Impression Femur X-Ray 04/17/23 17:50 IMPRESSION: Subcapital fracture of the left femoral neck. Electronically Signed: Xiomara Cain MD at 18:29 EST Reading Location ID and State: [id number] / Tel , Service support , Pelvis X-Ray 04/17/23 18:45 IMPRESSION: Findings suspicious for nondisplaced subcapital fracture of the left femoral neck. This is better demonstrated on the x-ray femur. Electronically Signed: Xiomara Cain MD at 20:37 EST Reading Location ID and State: LiamKathryn Augustine MD Tel , Service support , Chest X-Ray 04/17/23 19:25 IMPRESSION: No radiographic evidence of acute cardiopulmonary disease. Electronically Signed: Xiomara Cain MD at 20:40 EST Reading Location ID and State: LiamKathryn Augustine MD Tel , Service support , Physical Exam Narrative General: Alert, oriented, no apparent distress HEENT: Atraumatic, normocephalic Eyes: Anicteric, normal conjunctiva, extraocular movements grossly intact Neck: Supple Respiratory: Some crackles at the bases, normal respiratory effort Cardiovascular: Regular rate GI: Soft, nontender, nondistended Extremities: No edema Musculoskeletal: Moving all extremities without pain on moving left Neuro: No overt focal neurological deficits Skin: No rashes appreciated Psych: Cooperative Assessment & Plan Assessment/Plan (1) Fracture of left hip: QUALIFIERS: Encounter type: initial encounter Fracture type: closed Qualified Code(s): S72.002A - Fracture of unspecified part of neck of left femur, initial encounter for closed fracture (2) History of aortic valve replacement with bioprosthetic valve: (3) Chronic diastolic (congestive) heart failure: (4) Essential (primary) hypertension: (5) Secondary pulmonary arterial hypertension: (6) Elevated diaphragm: (7) Hypothyroidism: (8) ANDRY (obstructive sleep apnea): PLAN: Plan #Left hip fracture after fall -Fell at house and had left hip pain, patient found to have nondisplaced subcapital fracture of left femoral neck -Pain control, Ortho consult -Plan for surgery #Hypoxia in setting of chronically elevated diaphragm and ANDRY on CPAP with reported bovine AV valve 10 years ago and chronic diastolic heart failure -Patient seen with student nurse at bedside and off BiPAP both hands checked and sats in 70s with good pleth the patient denying shortness of breath or any kind of respiratory distress -Patient continued to insist this was chronic for her however when placed back on BiPAP sats improved to low to mid 90s on both sides with good pleth -We will get chest x-ray, chest x-ray on admission reported no acute process however does appear to have some increased markings especially at the bases -We will check COVID and respiratory panel -Check BNP and limited echo -Incentive spirometry -Daily weights and I's and O's -Follows with Dr. Paul on an outpatient basis -Continue home Lasix at this time while awaiting results #Hypothyroidism -Continue Synthroid #Hx polio -W/ residually reported left sided weakness #DVT ppx: SCDs Sarah Marie MD Time spent in the patient's overall evaluation,decision-making process, review of diagnostic data, adjustment of management, discussion with other providers, nursing nursing and ancillary staff involved in patient's care documentation, 35 minutes Charges/Coding Visit Charges Inpatient E&M: 30801 Subs Hosp L2
--- NOTE | 2023-04-18 08:36 | ECHOLC_ITS ---
Reason For Study: DYSPNEA Procedure This was a limited 2D transthoracic echocardiogram. Technically difficult study due to patient position. Patient scanned in sitting position due to recent left hip fracture. Contrast injection was performed. Exam performed portable in patient room. Left Ventricle Normal LV size. Left ventricular systolic function is normal. The estimated ejection fraction is 55 %. No regional wall motion abnormalities noted. Right Ventricle Normal RV size. Normal systolic function. Great Vessels Normal aortic root. The pulmonary is not well visualized. Pericardium/Pleural No pericardial effusion. Medication Diluted definity 3ml given slow IV push to enhance endocardial definition. MMode/2D Measurements & Calculations LAV(MOD-sp4): 72.9 ml SV(MOD-sp4): 29.8 ml LVAd ap4: 21.2 cm2 LVLd ap4: 6.5 cm EDV(MOD-sp4): 62.2 ml EDV(sp4-el): 58.9 ml LVAs ap4: 13.7 cm2 LVLs ap4: 5.8 cm ESV(MOD-sp4): 32.4 ml ESV(sp4-el): 27.3 ml EF(MOD-sp4): 47.9 % EF(sp4-el): 53.5 % SV(sp4-el): 31.5 ml LA A4 area: 22.6 cm2 RA A4 area: 15.7 cm2 Doppler Measurements & Calculations Ao V2 max: 432.9 cm/sec LV V1 max: 162.9 cm/sec Ao max P.3 mmHg LV V1 max P.6 mmHg Ao V2 mean: 309.4 cm/sec LV V1 mean P.6 mmHg Ao mean P.9 mmHg LV V1 mean: 119.8 cm/sec Ao V2 VTI: 96.1 cm LV V1 VTI: 38.3 cm AV (velocity ratio): 0.40 ECHO/Echo Limited w/Contrast Interpretation Summary Normal LV size. Left ventricular systolic function is normal. The estimated ejection fraction is 55 %. Contrast injection was performed. Ordering Physician: Sarah Marie Referring Physician: TADEO DONALD Performed By: Neida Ruiz RCS
--- NOTE | 2023-04-18 08:40 | RAD_ITS ---
EXAM: XR CHEST, 1 VIEW CLINICAL INDICATION: hypoxia TECHNIQUE: Frontal view of the chest. COMPARISON: XR Chest dated 04/17/2023 FINDINGS: LUNGS AND PLEURAL SPACES: No pulmonary consolidation. HEART: Normal heart size. MEDIASTINUM: No mediastinal or hilar mass. BONES/JOINTS: Sternotomy wires are in place. Old right-sided rib fractures again seen. UPPER ABDOMEN: Prominent elevation of left hemidiaphragm again noted. RAD/Chest 1 View (Portable) IMPRESSION: No acute cardiopulmonary abnormality. No interval change. Electronically Signed: Sohail Salgado MD at 9:02 EST ,
--- NOTE | 2023-04-18 09:58 | NURSING ---
pt having echo at bedside-on 2l via n/c
[2023-04-18 10:09] LABS: Anion Gap 5 (5-15); BUN 22 mg/dL (7-18); BUN/Creat Ratio 22.2 RATIO (10-20); Calcium,Total 8.8 mg/dL (8.5-10.1); Chloride 104 mmol/L (98-107); Creatinine, Serum 0.99 mg/dL (0.55-1.02); EST Glomerular Filtration Rate 57 mL/min (>60); Est Glom Filt Rate - Afr Amer 68 mL/min (>60); Estimated Creatinine Clearance 32.86 ml/min; Glucose 118 mg/dL (74-106); Potassium 4.4 mmol/L (3.5-5.1); Sodium Level 140 mmol/L (136-145)
[2023-04-18 10:12] LABS: BNP,B-Type NATRIURETIC PEPTIDE 219.7 pg/mL (0-100)
[2023-04-18 10:41] LABS: Thyroid Stim Hormone (TSH) 1.46 uIU/mL (0.358-3.74)
[2023-04-18] MEDS: Calcium Carb/Vitamin D 1 TABLET Tablet PO (11:01)
[2023-04-18] MEDS: Potassium Chloride Oral Tablet 10 MEQ PO ×2 (11:01→15:50)
[2023-04-18] MEDS: Multivitamins,Ther W-Minerals Tablet 1 TABLET PO (11:01)
[2023-04-18] MEDS: Nystatin Powder 15gm Bottle 1 APPLIC TOPICAL ×2 (11:02→21:57)
[2023-04-18] MEDS: Furosemide 40 MG Tablet PO (11:02)
[2023-04-18] MEDS: Metoprolol(XL)Succ 25 MG Tablet 12.5 MG PO (11:03)
--- NOTE | 2023-04-18 11:32 | PCM.CONS.GEN ---
Assessment & Plan Assessment/Plan (1) Left displaced femoral neck fracture: PLAN: Plan Discussed with patient and her family who was present options for percutaneous screw fixation versus hemiarthroplasty left hip considering her age and bone quality and inability to be done or partial weightbearing on the left side from her history of polio and left-sided weakness patient opted to proceed with left hip hemiarthroplasty. Risk benefits and alternatives reviewed including risk of bleeding infection nerve artery tissue damage need for further surgery continued pain postoperative restrictions and dislocation. Plan to proceed to the OR 04/19/2023 n.p.o. after midnight antibiotics on-call. HPI Consult Data Date of Consult: 04/18/23 HPI Narrative HPI Narrative: JESSY DAIGLE, is a 87 F who presents after ground-level fall onto her left side immediately having pain in her hip, she was able to walk initially however her pain got worse in her upper outer groin. She denies any pain in her knee or ankle at this time of note she does have a history of polio with left-sided weakness. [facility] Medical History (Updated 04/18/23 @ 11:[address] Abdirashid Pinto, ) Anemia Chronic diastolic (congestive) heart failure Closed fracture dislocation of left ankle joint Closed left ankle fracture Debility Decubitus ulcer of ankle, stage 2 Diaphragmatic paralysis Edema Essential (primary) hypertension Hypokalemia Hypothyroidism Hypothyroidism Non-rheumatic aortic stenosis Normochromic normocytic anemia Obesity Obstructive sleep apnea ANDRY (obstructive sleep apnea) Physical debility Polio Prosthetic aortic valve stenosis Secondary pulmonary arterial hypertension Ventricular ectopy Vertigo Vertigo Home Medications calcium carbonate 600 mg-vitamin D3 20 mcg (800 unit) tablet 1 tab PO DAILY supplement 06/30/19 [History Last Taken 07/25/19 08:19] cholecalciferol (vitamin D3) 25 mcg (1,000 unit) tablet 1,000 unit PO DAILY supplement 06/30/19 [History Last Taken 07/25/19 08:22] multivitamin with minerals 1 tab PO DAILY supplement 06/30/19 [History Last Taken 07/25/19 08:19] potassium chloride 10 mEq tablet,extended release(part/cryst) 10 meq PO BIDCM 08/22/19 [Rx Last Taken Unknown] meclizine 25 mg tablet 25 mg PO TID PRN PRN dizziness #21 tabs 12/04/21 [Rx Last Taken Unknown] furosemide 40 mg tablet 40 mg PO DAILY #90 tabs 05/23/22 [Rx Last Taken Unknown] levothyroxine 75 mcg tablet 75 mcg PO DAILY #90 tabs 05/23/22 [Rx Last Taken Unknown] metoprolol succinate 25 mg tablet,extended release 24 hr 25 mg PO DAILY #90 tabs 08/28/22 [Rx Last Taken Unknown] Allergy/AdvReac Type Severity Reaction Status Date / Time aspirin Allergy made my Verified 04/17/23 17:29 blood too thin hydrocodone [From Vicodin] Allergy feels Verified 04/17/23 17:29 like getting high niacin AdvReac severe Verified 04/17/23 17:29 sweating simvastatin AdvReac muscle Verified 04/17/23 17:29 aches Family History Father Dementia Mother Liver cirrhosis Sister Aortic valve disease Brother Dementia Surgical History H/O breast biopsy H/O colonoscopy History of aortic valve replacement with bioprosthetic valve (05/06/12) History of aortic valve replacement with bioprosthetic valve History of open reduction and internal fixation (ORIF) procedure (07/09/19) History of parathyroidectomy History of partial mastectomy of left breast History of right and left heart catheterization (09/01/11) History of tonsillectomy and adenoidectomy Hx of cholecystectomy Social History household members: none Smoking Status: Never smoker alcohol intake: current alcohol intake frequency: holidays/special occasions only substance use type: does not use caffeine: Yes Type: coffee Number of servings: 1 Physical Exam Const alert, oriented x3 and no apparent distress General Appearance: cooperative Extremity Extremity Narrative: Left hip there is no open wounds or ecchymosis she does have a positive logroll she is nontender in her knee or her ankle of note she did have prior ankle surgery and is a prominent screw lateral fibula although it is not coming through the skin and there is no sign of infection. She is able to plantarflex and dorsiflex her ankle she has intact sensation light touch in the left lower extremity. Lab / Micro Data 04/18/23 06:48 04/18/23 06:48 Labs: Laboratory Results - last 24 hr 04/17/23 19:10: WBC 15.2 H, RBC 4.38, Hgb 13.7, Hct 44.2, MCV 100.9 H, MCH 31.3, MCHC 31.0 L, RDW Std Deviation 51.9 H, RDW Coeff of Junior 14.0, Plt Count 264, MPV 10.1, Immature Gran % (Auto) 0.600, Neut % (Auto) 86.0 H, Lymph % (Auto) 8.6 L, [place] % (Auto) 3.9, Eos % (Auto) 0.4, Baso % (Auto) 0.5, Absolute Neuts (auto) 13.1 H, Absolute Lymphs (auto) 1.31, Nucleated RBC % 0, Sodium 141, Potassium 3.9, Chloride 104, Carbon Dioxide 32.0, Anion Gap 5, BUN 18, Creatinine 0.80, Estim Creat Clear Calc 46.26, Est GFR (MDRD) Af Amer 88, Est GFR (MDRD) Non-Af 72, BUN/Creatinine Ratio 22.5 H, Glucose 131 H, Calcium 9.5, Total Bilirubin 0.50, AST 42 H, ALT 29, Alkaline Phosphatase 97, Total Protein 7.7, Albumin 3.6, Globulin 4.1, Albumin/Globulin Ratio 0.9 04/17/23 19:45: POC Glucose 155 H 04/17/23 20:28: Urine Color Yellow, Urine Clarity Clear, Urine pH 6.0, Ur Specific [place] 1.025, Urine Protein 30 H, Urine Glucose (UA) Normal, Urine Ketones 50 H, Urine Occult Blood Negative, Urine Nitrite Negative, Urine Bilirubin Negative, Urine Urobilinogen Normal, Ur Leukocyte Esterase 25 H, Urine RBC 0 SEEN, Urine WBC 0 SEEN, Ur Squamous Epith Cells 0 SEEN, Urine Bacteria 0 SEEN, Urine Mucus 0 SEEN 04/18/23 06:48: WBC 10.8, RBC 3.86 L, Hgb 12.1, Hct 40.2, MCV 104.1 H, MCH 31.3, MCHC 30.1 L, RDW Std Deviation 54.6 H, RDW Coeff of Junior 14.3, Plt Count 239, MPV 10.3, Immature Gran % (Auto) 0.600, Neut % (Auto) 80.3 H, Lymph % (Auto) 9.9 L, [place] % (Auto) 5.6, Eos % (Auto) 3.0, Baso % (Auto) 0.6, Absolute Neuts (auto) 8.7 H, Absolute Lymphs (auto) 1.07, Nucleated RBC % 0, Sodium 140, Potassium 4.4, Chloride 104, Carbon Dioxide 31.0, Anion Gap 5, BUN 22 H, Creatinine 0.99, Estim Creat Clear Calc 32.86, Est GFR (MDRD) Af Amer 68, Est GFR (MDRD) Non-Af 57 L, BUN/Creatinine Ratio 22.2 H, Glucose 118 H, Calcium 8.8, B-Natriuretic Peptide 219.7 H, Vitamin D 25-Hydroxy 74.0, TSH 1.46 Micro: Microbiology 04/18/23 08:35 Nasal Secretion SARS-CoV-2 & FLU Antigen (Rapid) - Final Imagaing Radiology Impression Femur X-Ray 04/17/23 17:50 IMPRESSION: Subcapital fracture of the left femoral neck. Electronically Signed: Xiomara Cain MD at 18:29 EST Reading Location ID and State: Taisha Augustine MD Tel , Service support , Pelvis X-Ray 04/17/23 18:45 IMPRESSION: Findings suspicious for nondisplaced subcapital fracture of the left femoral neck. This is better demonstrated on the x-ray femur. Electronically Signed: Xiomara Cain MD at 20:37 EST Reading Location ID and State: Taisha Augustine MD Tel , Service support , Chest X-Ray 04/17/23 19:25 IMPRESSION: No radiographic evidence of acute cardiopulmonary disease. Electronically Signed: Xiomara Cain MD at 20:40 EST Reading Location ID and State: Taisha Augustine MD Tel , Service support , Chest X-Ray 04/18/23 08:40 IMPRESSION: No acute cardiopulmonary abnormality. No interval change. Electronically Signed: Sohail Salgado MD at 9:02 EST ,
--- NOTE | 2023-04-18 11:43 | CASEMGMT ---
TIFFANY BAÑUELOS Assessment: Face to Face with pt for initial transition planning/care coordination assessment. TIFFANY BAÑUELOS introduced self and role at [facility], pt voices understanding and consents to assessment. Pt's grandson and a lady described as being pt's [id number] (but she looks to be around the same age as the grandson) are present in the room per pt's permission. Pt is A&O x4 and answers all questions appropriately at this time. Care providers, pharmacy, and demographics verified/updated. Admitting Dx: Left Hip Fracture PCP: Judi Specialists:Gricel (assurance sourcing manager), Donna (Opthamologist), Halie (Oncologist), Stefano (Aortic Valve Surgeon), Humberto (Station Supervisor) Preferred Pharmacy:[facility] ([facility]) Insurance: [employer] [facility] Prescription Benefit: yes LNOK: Radha Scott (Sister) Living Will/HCPOA: yes and Yes; Radha Scott is HCPOA Living Arrangements: Pt lives home alone in a 1 story home with basement (laundry in basement). 3 steps w/railing to enter and 12 steps w/railing to basement. Pt. states she was able to ambulate these steps prior to thid admission. Pt states she is I in all ADLs/IADLs. Transportation: Self. sister, grandson DME: cane (uses when outside and furniture walks when inside her home -- states it is a very small home with not a whole lot of area to have to walk around), grab bars, walker, rollator, declines information on medical alert systems, BiPAP, 2 LPM HS oxygen via [employer] (Reyna ALLEN CM sent email to [employer] to verify oxygen order), pulse ox. HHC/SNF: Has been to [facility] before and has previously had HHC. Pt states no concerns with going home at time of dc. Pt states no further concerns/needs. CM to follow. Advised pt to ask CM if any further question/concerns/needs arise, voices understanding. Pt Goal: Home with HHC. Pt. states she does not think she will need to go to a SNF for rehab and states she much prefers to go home and have HHC if needed. Plan: Home with HHC and family support vs. SNF, Follow surgery and PT/OT.
--- NOTE | 2023-04-18 11:51 | CHAPLAIN ---
Type of Pastoral Visit _x__ Initial Visit ___ Follow-up Visit ___ On-call Visit ___ General Patient Visit ___ Spiritual Assessment ___ Family Conference ___ Bereavement ___ Rapid Response ___ Code Blue ___ Other (describe below) Pastoral Care Referral From _x__ Patient ___ Family ___ Nurse ___ Physician ___ Spear Fisher ___ Tooth Cutter Contact Wheel ___ Other (describe below) Sacrament/Intervention _x__ Active listening ___ Anointing ___ Hindu ___ Bereavement ___ Communion ___ Nakita exploration ___ ___ Life review _x__ Prayer ___ Reconciliation ___ Sacrament of Sick _x__ Supportive presence ___ Wedding ___ Other (describe below) Pastoral Comments patient has family members in the room; pt is talkative and reminds this equipment processer storage of her previous admissions and support given while she was here; pt is offerred presence and prayer; pt welcomes prayer and states that she has no other needs at this time
[2023-04-18] MEDS: Acetaminophen 325 MG Tablet 650 MG PO (13:53)
[2023-04-18] MEDS: Cholecalciferol (VIT D3) 25 MCG TABLET (1,000 UNITS) PO (13:55)
--- NOTE | 2023-04-18 20:35 | CPS ---
Pt on home BiPAP unit with 2 lpm O2 bleed in.
[2023-04-18] MEDS: Ibuprofen 600 MG Tablet PO (21:57)
[2023-04-19] VITALS (19 sets, daily range): BP systolic 106–151; BP diastolic 39–103; PULSE 66–94; RESP 16–18; TEMP 36.2–37.2; O2SAT 78–96; BMI 27.6; BMI 27.3
[2023-04-19 04:10] LABS: Absolute Lymphocyte Count 1.19 X10^3/uL (0.83-4.51); Absolute Neutrophil Count 8.1 X10^3/uL (2.0-7.7); Basophil# 0.06 X10^3/uL; Basophil% 0.6 % (0-1); Eosinophil# 0.65 X10^3/uL; Hematocrit 36.6 % (37-47); Hemoglobin 11.3 g/dL (12.0-15.0); Lymphocyte # 1.19 X10^3/ul (0.83-4.51); Mean Corp Hgb Conc 30.9 g/dL (32-36); Mean Corpuscular Hgb 31.5 pg (27.0-32.0); Mean Corpuscular Volume 101.9 fL (81-99); Mean Platelet Vol. 9.7 fl (6.2-12.0); Monocyte# 0.71 X10^3/uL; Monocyte% 6.6 % (0-10); NRBC Flagged by Analyzer 0 % (0-5); Neutrophil # 8.13 X10^3/uL (2.7-7.7); Neutrophil % 75.2 % (47-70); Platelet Count 194 K/mm3 (150-450); Red Blood Count 3.59 M/mm3 (4.2-5.4); White Blood Count 10.8 K/mm3 (4.4-11.0)
[2023-04-19 04:33] LABS: Anion Gap 4 (5-15); BUN 20 mg/dL (7-18); BUN/Creat Ratio 21.7 RATIO (10-20); Calcium,Total 8.6 mg/dL (8.5-10.1); Chloride 102 mmol/L (98-107); Creatinine, Serum 0.92 mg/dL (0.55-1.02); EST Glomerular Filtration Rate 61 mL/min (>60); Est Glom Filt Rate - Afr Amer 74 mL/min (>60); Estimated Creatinine Clearance 35.36 ml/min; Glucose 123 mg/dL (74-106); Potassium 4.4 mmol/L (3.5-5.1); Sodium Level 139 mmol/L (136-145)
[2023-04-19] MEDS: Lactated Ringers 1,000 ML 15 ML IV (06:58)
--- NOTE | 2023-04-19 07:30 | HIP_PTH ---
PATIENT: JESSY DAIGLE LOC: MS3 U#:[id number] AGE/SX: 87/F ROOM: [facility] [place]17/[address]: Dr. Rene Kim MD : [id number] BED: 1 DIS: 04/25/2023 SPEC #: [id number] RECD: 04/19/23 10:55 STATUS: JOJO REQ #: [id number] DUARTE: 04/19/23 07:[address]: Abdirashid Pinto DEPT: SURGICAL PATHOLOGY RECD BY: Lynne Campos ENTERED: 04/19/23 13:08 SP TYPE: TOTAL HIP OTHR DR: DO Dr. Abdirashid Verdin DO Dr. Paige Pierce, MD Dr. William Lago, MD Tissues: Hip, NOS Procedures: Decalcification bone/plaque Surgery Specimen Level IV Comments: @ Ordering doctor for DEC edited from to DR.JBORRU Anguiano by ASHA at 04/27/23725 @ Ordering doctor for SUIV edited from to DR.JBORRU Anguiano by ASHA at 04/27/23725 @ Submitting doctor edited from to DR.JBORRU Annmarie BARRY at 04/27/23725 HEADER OPERATION: Hemiarthroplasty of hip PRE-OP DIAGNOSIS: Fracture of left hip, Leukocytosis TISSUE SUBMITTED: Left hip bone and tissue MICROSCOPIC DIAGNOSIS Bone and tissue of left hip, total hip resection: Consistent with organizing fracture site. AM:chas 04/25/2023 MICROSCOPIC DESCRIPTION Slides are reviewed. GROSS DESCRIPTION Received is one container labeled with the patient's name and designated left hip bone and tissue. The specimen consists of a reddish-pink femoral head measuring 5.0 x 4.2 x 4.0 cm. The articular surface is essentially unremarkable. The non-articular surface is hemorrhagic and irregular consistent with fracture site. Also present in the specimen container are multiple irregular fragments of red-pink bone measuring in aggregate 5.0 x 3.0 x 2.0 cm. Child Day Care Teacher sections are submitted in two cassettes after decalcification. / AM:chas 04/19/2023 TC:5 CPT: 84718, 45710
[2023-04-19] MEDS: Cefazolin 2 GM in 0.9% Normal Saline (100mL Bag) 100 ML IV (07:40)
--- NOTE | 2023-04-19 08:39 | PN.HOSP_ITS ---
Reason for Visit Reason for Visit: Diagnoses Other elevated white blood cell count (04/17/23) Hypothyroidism, unspecified (04/17/23) Obstructive sleep apnea (adult) (pediatric) (04/17/23) Essential (primary) hypertension (04/17/23) Secondary pulmonary arterial hypertension (04/17/23) Chronic diastolic (congestive) heart failure (04/17/23) Disorders of diaphragm (04/17/23) Fracture of unspecified part of neck of left femur, initial encounter for closed fracture (04/17/23) Presence of other heart-valve replacement (04/17/23) Subjective Subjective Patient postop, doing well and he feels pain is beginning to get better Objective Data Objective Data Vital Signs: Vital Signs Temp Pulse Resp BP Pulse Ox O2 Del Method O2 Flow Rate 98.9 F 70 18 116/47 L 94 Nasal Cannula 3 04/19/23 04:43 04/19/23 04:43 04/19/23 04:43 04/19/23 04:43 04/19/23 07:47 04/19/23 07:47 04/19/23 07:47 Oxygen Flow Rate (L/min) 3 Oxygen Delivery Method Nasal Cannula Weight: 68 kg Body Mass Index (BMI) 27.3 Intake & Output: Intake and Output for Last 24 Hours 04/17/23 04/18/23 04/19/23 23:59 23:59 23:59 Intake Total 550 / 550 120 / 120 Output Total 1100 / 1100 150 / 150 Balance -550 / -550 -30 / -30 Lab / Micro Data 04/19/23 04:00 04/19/23 04:00 Labs: Laboratory Results - last 24 hr 04/18/23 06:48: Sodium 140, Potassium 4.4, Chloride 104, Carbon Dioxide 31.0, Anion Gap 5, BUN 22 H, Creatinine 0.99, Estim Creat Clear Calc 32.86, Est GFR (MDRD) Af Amer 68, Est GFR (MDRD) Non-Af 57 L, BUN/Creatinine Ratio 22.2 H, Glucose 118 H, Calcium 8.8, B-Natriuretic Peptide 219.7 H, Vitamin D 25-Hydroxy 74.0, TSH 1.46 04/18/23 12:24: Blood Type O POSITIVE, Antibody Screen NEGATIVE 04/19/23 04:00: WBC 10.8, RBC 3.59 L, Hgb 11.3 L, Hct 36.6 L, MCV 101.9 H, MCH 31.5, MCHC 30.9 L, RDW Std Deviation 53.0 H, RDW Coeff of Junior 14.0, Plt Count 194, MPV 9.7, Immature Gran % (Auto) 0.600, Neut % (Auto) 75.2 H, Lymph % (Auto) 11.0 L, [place] % (Auto) 6.6, Eos % (Auto) 6.0 H, Baso % (Auto) 0.6, Absolute Neuts (auto) 8.1 H, Absolute Lymphs (auto) 1.19, Nucleated RBC % 0, Sodium 139, Potassium 4.4, Chloride 102, Carbon Dioxide 33.0 H, Anion Gap 4 L, BUN 20 H, Creatinine 0.92, Estim Creat Clear Calc 35.36, Est GFR (MDRD) Af Amer 74, Est GFR (MDRD) Non-Af 61, BUN/Creatinine Ratio 21.7 H, Glucose 123 H, Calcium 8.6 Micro: Microbiology 04/18/23 11:15 Mucosa - Nose Respiratory Panel (PCR) - Final 04/18/23 08:35 Nasal Secretion SARS-CoV-2 & FLU Antigen (Rapid) - Final Radiography Diagnostic Testing: Radiology Impression Echocardiogram 04/18/23 08:36 Interpretation Summary Normal LV size. Left ventricular systolic function is normal. The estimated ejection fraction is 55 %. Contrast injection was performed. Ordering Physician: Sarah Marie Referring Physician: TADEO DONALD Performed By: Neida Ruiz RCS Chest X-Ray 04/18/23 08:40 IMPRESSION: No acute cardiopulmonary abnormality. No interval change. Electronically Signed: Sohail Salgado MD at 9:02 EST , Physical Exam Narrative General: Alert, oriented, no apparent distress HEENT: Atraumatic, normocephalic Eyes: Anicteric, normal conjunctiva, extraocular movements grossly intact Neck: Supple Respiratory: No rhonchi or wheezes, normal respiratory effort Cardiovascular: Regular rate GI: Soft, nontender, nondistended Extremities: No edema Musculoskeletal: Moving all extremities Neuro: No overt focal neurological deficits Skin: No rashes appreciated Psych: Cooperative Assessment & Plan Assessment/Plan (1) Fracture of left hip: QUALIFIERS: Encounter type: initial encounter Fracture type: closed Qualified Code(s): S72.002A - Fracture of unspecified part of neck of left femur, initial encounter for closed fracture (2) History of aortic valve replacement with bioprosthetic valve: (3) Chronic diastolic (congestive) heart failure: (4) Essential (primary) hypertension: (5) Secondary pulmonary arterial hypertension: (6) Elevated diaphragm: (7) Hypothyroidism: (8) ANDRY (obstructive sleep apnea): PLAN: Plan #Left hip fracture after fall -Fell at house and had left hip pain, patient found to have nondisplaced subcapi dov fracture of left femoral neck -Pain control, Ortho consult -Plan for surgery -04/19: Surgery this a.m. with Dr. Pinto #Hypoxia in setting of chronically elevated diaphragm and ANDRY on CPAP with reported bovine AV valve 10 years ago and chronic diastolic heart failure -Patient seen with student nurse at bedside and off BiPAP both hands checked and sats in 70s with good pleth the patient denying shortness of breath or any kind of respiratory distress -Patient continued to insist this was chronic for her however when placed back on BiPAP sats improved to low to mid 90s on both sides with good pleth -We will get chest x-ray, chest x-ray on admission reported no acute process however does appear to have some increased markings especially at the bases -We will check COVID and respiratory panel -Check BNP and limited echo -Incentive spirometry -Daily weights and I's and O's -Follows with Dr. Paul on an outpatient basis -Continue home Lasix at this time while awaiting results -04/19: Patient was 85% on BiPAP overnight with 2 L O2 bleed and improved to 88% on 5 L, this morning was 93-94 nasal cannula, work-up unimpressive for any acute pulmonary etiology #Hypothyroidism -Continue Synthroid #Hx polio -W/ residually reported left sided weakness #DVT ppx: SCDs Sarah Marie MD Time spent in the patient's overall evaluation,decision-making process, review of diagnostic data, adjustment of management, discussion with other providers, nursing nursing and ancillary staff involved in patient's care documentation, 35 minutes Charges/Coding Visit Charges Inpatient E&M: 83315 Subs Hosp L2
[2023-04-19] MEDS: Bupivacaine Mpf 0.5% 30 ML VIAL (09:33)
--- NOTE | 2023-04-19 09:42 | OP.PCM_ITS ---
Operative Report Date of Procedure: 04/19/23 Preoperative diagnosis: Left hip femoral neck fracture displaced Postoperative diagnosis: Same Procedure: Left hip hemiarthroplasty Implants: [place] Accolade II stem size 3 132 degree neck angle 0 neck length 45 mm outer diameter bipolar head Anesthesia: General l EBL: 150 cc Complications: None Condition: Stable to PACU Indication for procedure: This is a 87-year-old female ground-level fall sustained left femoral neck fracture valgus impacted. plans for definitive hemiarthroplasty were discussed including risks benefits and alternatives of the procedure were reviewed with the patient including risk of bleeding infection nerve artery tissue damage need for further surgery continue pain postoperative hip precaution restrictions leg length discrepancy and dislocation. Procedure: Patient was met in the preoperative holding area once again the operative extremity was identified by both patient and physician and was marked. Patient was met by anesthesia and brought to the operating room where anesthesia was started . The patient was then positioned in the lateral decubi tus position on a well-padded pegboard with an axillary roll. All bony prominences were checked and padded. The patient was prepped and draped in the usual sterile fashion. A timeout was called to ensure the proper patient procedure and extremity were being contemplated. Anatomic landmarks were palpated and marked for a standard posterior lateral approach. A timeout was called to ensure the proper patient procedure and extremity were being contemplated. A 10 blade scalpel was used to make a posterior incision through the skin and subcutaneous tissue. In retractors were used and electrocautery was used to maintain meticulous hemostasis and dissect full-thickness flaps until the gluteal fascia was reached. The gluteal fascia was incised in line with the gluteal fibers. The bursal tissue was then freed from the underside and a Charnley retractor was placed. The fatpad was elevated off of the external rotators with electrocautery and the external rotators were dissected off of the greater trochanter including the piriformis and were tagged with #1 Ethibond for later repair. The joint capsule opened with posterior trapdoor technique. A femoral neck cutting guide was used to marco antonio the neck with a Bovie and an oscillating saw was used to complete the femoral neck cut. the fracture was visualized and with the use of a corkscrew and a skid the femoral head was removed and sized. We then trialed with the matching sizes . Hohmann was placed around the lesser trochanter. A femoral elevator was used. As well as a pointed wide Hohmann around the lesser trochanter and a Hohmann to help retract the gluteus medius. A box chisel was used to remove excess lateral neck followed by a canal finder and a lateralizing reamer. This was followed by sequential broaches. Attention was made of the version within the canal. Once the final broach was seated we then trialed and reduced the hip it was determined that a 132 degree neck angle with a 0 neck length was the appropriate size. We then checked stability with shuck testing as well as flexion and interminal rotation then proceeded with hip extension and checked leg lengths at the knees and heels. At this point trials were removed. The femoral stem was inserted. We re-trialed and then proceeded to impact the femoral head onto the Ramón taper. We then surgically reduce the hip check stability again and leg lengths and were satisfied. irricept rinse was allowed to sit for 1 minutes while everyone changed their gloves. Thorough irrigation was performed. Followed by closure of the external rotators with #2 FiberWire followed by closure of gluteal fascia with #1 Ethibond. 0 Vicryl fat stitches and 2-0 Vicryl subcutaneous stitches and leon in the skin. Dressing was applied in the form of silverlon dressing and an abduction pillow was placed. Patient tolerated the procedure well there was no intraoperative complications all counts were correct and the patient was brought back to the PACU in stable condition
--- NOTE | 2023-04-19 11:30 | RAD_ITS ---
STUDY: X-RAY - PELVIS AND LEFT HIP REASON FOR EXAM: Female, 87 years old. Post Op -- AP both hips on single jorge/lateral of op hip PACU TECHNIQUE: 2 views of the pelvis and hip. COMPARISON: Comparison is made with prior examination dated April 17, 2023. FINDINGS: The patient is status post left hip replacement. There is good alignment. Postoperative soft tissue changes. RAD/Hip Min 2 Views (Portable) IMPRESSION: Status post left total hip replacement. There is good alignment. Postoperative soft tissue changes. Electronically Signed: Robert Berger MD at 11:54 EST ,
[2023-04-19] MEDS: Acetaminophen 325 MG Tablet 650 MG PO ×2 (12:48→18:43)
--- NOTE | 2023-04-19 14:03 | CHAPLAIN ---
Type of Pastoral Visit ___ Initial Visit ___ Follow-up Visit ___ On-call Visit ___ General Patient Visit ___ Spiritual Assessment ___ Family Conference ___ Bereavement ___ Rapid Response ___ Code Blue ___ Other (describe below) Pastoral Care Referral From ___ Patient ___ Family ___ Nurse ___ Physician ___ [employer] Business Representative ___ Rn Clinical Documentation Specialist ___ Other (describe below) Sacrament/Intervention ___ Active listening ___ Anointing ___ Baptist ___ Bereavement ___ Communion ___ Nakita exploration ___ ___ Life review ___ Prayer ___ Reconciliation ___ Sacrament of Sick ___ Supportive presence ___ Wedding ___ Other (describe below) Pastoral Comments spoke with family members post op; offered care and support; pt is sleeping
[2023-04-19] MEDS: Furosemide 40 MG Tablet PO (14:21)
[2023-04-19] MEDS: Calcium Carb/Vitamin D 1 TABLET Tablet PO (14:21)
[2023-04-19] MEDS: Metoprolol(XL)Succ 25 MG Tablet 12.5 MG PO (14:22)
[2023-04-19] MEDS: Nystatin Powder 15gm Bottle 1 APPLIC TOPICAL ×2 (14:22→20:21)
[2023-04-19] MEDS: Cholecalciferol (VIT D3) 25 MCG TABLET (1,000 UNITS) PO (14:24)
[2023-04-19] MEDS: Calcium Carbonate 500 MG Tablet PO ×2 (14:26→17:28)
[2023-04-19] MEDS: Multivitamins,Ther W-Minerals Tablet 1 TABLET PO (16:18)
[2023-04-19] MEDS: Potassium Chloride Oral Tablet 10 MEQ PO (17:28)
[2023-04-19] MEDS: 0.9% Normal Saline (1000mL) 1,000 ML 125 ML IV (18:39)
[2023-04-19] MEDS: Senna/Docusate Sodium 1 Tablet 2 TABLET PO (20:21)
[2023-04-20] VITALS (10 sets, daily range): BP systolic 99–129; BP diastolic 45–60; PULSE 83–98; RESP 18–20; TEMP 36.6–37.2; O2SAT 87–98; BMI 28.7
[2023-04-20] MEDS: 0.9% Normal Saline (1000mL) 1,000 ML 125 ML IV (02:21)
[2023-04-20] MEDS: Levothyroxine 75 MCG Tablet PO (04:44)
[2023-04-20] MEDS: Acetaminophen 325 MG Tablet 650 MG PO ×3 (05:37→18:05)
[2023-04-20 06:20] LABS: Absolute Lymphocyte Count 1.65 X10^3/uL (0.83-4.51); Absolute Neutrophil Count 6.6 X10^3/uL (2.0-7.7); Basophil# 0.04 X10^3/uL; Basophil% 0.4 % (0-1); Eosinophil# 0.36 X10^3/uL; Eosinophils% 3.7 % (0-5); Hematocrit 34.6 % (37-47); Hemoglobin 10.4 g/dL (12.0-15.0); Lymphocyte # 1.65 X10^3/ul (0.83-4.51); Lymphocyte % 17.2 % (19-41); Mean Corp Hgb Conc 30.1 g/dL (32-36); Mean Corpuscular Volume 103.3 fL (81-99); Mean Platelet Vol. 10.5 fl (6.2-12.0); Monocyte# 0.93 X10^3/uL; Monocyte% 9.7 % (0-10); NRBC Flagged by Analyzer 0 % (0-5); Neutrophil % 68.6 % (47-70); Platelet Count 205 K/mm3 (150-450); RBC Distribution Width SD 53.2 fl (35.1-43.9); Red Blood Count 3.35 M/mm3 (4.2-5.4); White Blood Count 9.6 K/mm3 (4.4-11.0)
--- NOTE | 2023-04-20 07:20 | PN.HOSP_ITS ---
Reason for Visit Reason for Visit: Diagnoses Other elevated white blood cell count (04/17/23) Hypothyroidism, unspecified (04/17/23) Obstructive sleep apnea (adult) (pediatric) (04/17/23) Essential (primary) hypertension (04/17/23) Secondary pulmonary arterial hypertension (04/17/23) Chronic diastolic (congestive) heart failure (04/17/23) Disorders of diaphragm (04/17/23) Fracture of unspecified part of neck of left femur, initial encounter for closed fracture (04/17/23) Presence of other heart-valve replacement (04/17/23) Subjective Subjective Having some pain, comes intermittently, overall doing well today, no changes in breathing Objective Data Objective Data Vital Signs: Vital Signs Temp Pulse Resp BP Pulse Ox O2 Del Method O2 Flow Rate 98.4 F 83 18 129/59 H 97 CPAP 3 04/20/23 04:06 04/20/23 04:06 04/20/23 04:06 04/20/23 04:06 04/20/23 04:06 04/20/23 04:06 04/20/23 04:06 Oxygen Flow Rate (L/min) 3 Oxygen Delivery Method CPAP Weight: 68 kg Body Mass Index (BMI) 27.3 Intake & Output: Intake and Output for Last 24 Hours 04/18/23 04/19/23 04/20/23 23:59 23:59 23:59 Intake Total 550 / 550 1669.75 / 1669.75 962.5 / 962.5 Output Total 1100 / 1100 250 / 400 150 / 150 Balance -550 / -550 1419.75 / 1269.75 812.5 / 812.5 Lab / Micro Data 04/20/23 05:34 04/20/23 05:34 Labs: Laboratory Results - last 24 hr 04/20/23 05:34: WBC 9.6, RBC 3.35 L, Hgb 10.4 L, Hct 34.6 L, MCV 103.3 H, MCH 31.0, MCHC 30.1 L, RDW Std Deviation 53.2 H, RDW Coeff of Junior 14.0, Plt Count 205, MPV 10.5, Immature Gran % (Auto) 0.400, Neut % (Auto) 68.6, Lymph % (Auto) 17.2 L, [place] % (Auto) 9.7, Eos % (Auto) 3.7, Baso % (Auto) 0.4, Absolute Neuts (auto) 6.6, Absolute Lymphs (auto) 1.65, Nucleated RBC % 0 Micro: Microbiology 04/18/23 11:15 Mucosa - Nose Respiratory Panel (PCR) - Final 04/18/23 08:35 Nasal Secretion SARS-CoV-2 & FLU Antigen (Rapid) - Final Radiography Diagnostic Testing: Radiology Impression Hip X-Ray 04/19/23 11:30 IMPRESSION: Status post left total hip replacement. There is good alignment. Postoperative soft tissue changes. Electronically Signed: Robert Berger MD at 11:54 EST , Physical Exam Narrative General: Alert, oriented, no apparent distress HEENT: Atraumatic, normocephalic Eyes: Anicteric, normal conjunctiva, extraocular movements grossly intact Neck: Supple Respiratory: No rhonchi or wheezes, normal respiratory effort Cardiovascular: Regular rate GI: Soft, nontender, nondistended Extremities: No edema Musculoskeletal: Moving all extremities Neuro: No overt focal neurological deficits Skin: No rashes appreciated Psych: Cooperative Assessment & Plan Assessment/Plan (1) Fracture of left hip: QUALIFIERS: Encounter type: initial encounter Fracture type: closed Qualified Code(s): S72.002A - Fracture of unspecified part of neck of left femur, initial encounter for closed fracture (2) History of aortic valve replacement with bioprosthetic valve: (3) Chronic diastolic (congestive) heart failure: (4) Essential (primary) hypertension: (5) Secondary pulmonary arterial hypertension: (6) Elevated diaphragm: (7) Hypothyroidism: (8) ANDRY (obstructive sleep apnea): PLAN: Plan #Left hip fracture after fall -Fell at house and had left hip pain, patient found to have nondisplaced subcapital fracture of left femoral neck -Pain control, Ortho consult -Plan for surgery -04/19: Surgery this a.m. with Dr. Pinto -04/20: Patient tolerated surgery well, pain control, will need to follow with Ortho, PT/OT #Hypoxia in setting of chronically elevated diaphragm and ANDRY on CPAP with reported bovine AV valve 10 years ago and chronic diastolic heart failure -Patient seen with student nurse at bedside and off BiPAP both hands checked and sats in 70s with good pleth the patient denying shortness of breath or any kind of respiratory distress -Patient continued to insist this was chronic for her however when placed back on BiPAP sats improved to low to mid 90s on both sides with good pleth -We will get chest x-ray, chest x-ray on admission reported no acute process however does appear to have some increased markings especially at the bases -We will check COVID and respiratory panel -Check BNP and limited echo -Incentive spirometry -Daily weights and I's and O's -Follows with Dr. Paul on an outpatient basis -Continue home Lasix at this time while awaiting results -04/19: Patient was 85% on BiPAP overnight with 2 L O2 bleed and improved to 88% on 5 L, this morning was 93-94 nasal cannula, work-up unimpressive for any acute pulmonary etiology -04/20: Had period overnight where she got hypoxic when switched over to CPAP and had oxygen bleed increased however her O2 sats improved and oxygen was subsequently down titrated, will need to follow with her electrical power engineer upon discharge, no acute etiology and patient with no sustained hypoxia at this time however she was started fluids at 150 an hour per day and she has the chronic diastolic heart failure and usually takes Lasix so we will DC fluids and give her dose of Lasix as this could have contributed #Hypothyroidism -Continue Synthroid #Hx polio -W/ residually reported left sided weakness -04/20: PT/OT #DVT ppx: Eliquis 2.5 mg twice daily for 3 weeks Sarah Marie MD Time spent in the patient's overall evaluation,decision-making process, review of diagnostic data, adjustment of management, discussion with other providers, nursing nursing and ancillary staff involved in patient's care documentation, 35 minutes Charges/Coding Visit Charges Inpatient E&M: 80407 Subs Hosp L2
[2023-04-20 07:28] LABS: Anion Gap 5 (5-15); BUN 16 mg/dL (7-18); BUN/Creat Ratio 19.9 RATIO (10-20); Calcium,Total 8.3 mg/dL (8.5-10.1); Chloride 103 mmol/L (98-107); EST Glomerular Filtration Rate 72 mL/min (>60); Est Glom Filt Rate - Afr Amer 87 mL/min (>60); Estimated Creatinine Clearance 40.66 ml/min; Glucose 131 mg/dL (74-106); Potassium 4.1 mmol/L (3.5-5.1); Sodium Level 138 mmol/L (136-145)
[2023-04-20] MEDS: 0.9% Saline Lock 10 ML Syringe IV (08:38)
[2023-04-20] MEDS: Calcium Carb/Vitamin D 1 TABLET Tablet PO (08:38)
[2023-04-20] MEDS: Calcium Carbonate 500 MG Tablet PO ×3 (08:39→17:17)
[2023-04-20] MEDS: Potassium Chloride Oral Tablet 10 MEQ PO ×2 (08:39→17:18)
[2023-04-20] MEDS: Multivitamins,Ther W-Minerals Tablet 1 TABLET PO (08:43)
--- NOTE | 2023-04-20 08:55 | CASEMGMT ---
Discharge Planning A list of?SNF providers including quality and resource use data and consistent with the patient's preferred geographic region, medical needs, and insurance network was created in [facility] Guide.? This list was provided to the KRYSTLE. Karlie Rock, Discharge Planning Asst
[2023-04-20] MEDS: Cholecalciferol (VIT D3) 25 MCG TABLET (1,000 UNITS) PO (10:23)
[2023-04-20] MEDS: Senna/Docusate Sodium 1 Tablet 2 TABLET PO ×2 (10:24→23:28)
[2023-04-20] MEDS: Nystatin Powder 15gm Bottle 1 APPLIC TOPICAL ×2 (10:24→23:29)
[2023-04-20] MEDS: Furosemide 40 MG Tablet PO (12:16)
[2023-04-20] MEDS: Metoprolol(XL)Succ 25 MG Tablet 12.5 MG PO (12:17)
[2023-04-20] MEDS: APIXABAN 2.5 MG TABLET (WCH) PO ×2 (12:17→23:29)
--- NOTE | 2023-04-20 13:14 | PN.ORTHO_ITS ---
Subjective Subjective Seen and examined. Doing okay complain of pain left hip particularly when weightbearing denies fevers chills nausea vomiting shortness of breath or chest pain she is eating without difficulty. Objective Data Objective Data Vital Signs: Vital Signs Temp Pulse Resp BP Pulse Ox O2 Del Method O2 Flow Rate 98 F 96 18 107/54 L 92 Room Air 2 04/20/23 12:15 04/20/23 12:17 04/20/23 12:15 04/20/23 12:17 04/20/23 12:31 04/20/23 12:15 04/20/23 12:31 Oxygen Flow Rate (L/min) 2 Oxygen Delivery Method Room Air Weight: 149 lb 14.629 oz Body Mass Index (BMI) 27.3 Intake & Output: Intake and Output for Last 24 Hours 04/18/23 04/19/23 04/20/23 23:59 23:59 23:59 Intake Total 550 / 550 1669.75 / 1669.75 2114.58 / 2114.58 Output Total 1100 / 1100 250 / 400 150 / 150 Balance -550 / -550 1419.75 / 1269.75 1964.58 / 1964.58 Lab / Micro Data 04/20/23 05:34 04/20/23 05:34 Labs: Laboratory Results - last 24 hr 04/20/23 05:34: WBC 9.6, RBC 3.35 L, Hgb 10.4 L, Hct 34.6 L, MCV 103.3 H, MCH 31.0, MCHC 30.1 L, RDW Std Deviation 53.2 H, RDW Coeff of Junior 14.0, Plt Count 205, MPV 10.5, Immature Gran % (Auto) 0.400, Neut % (Auto) 68.6, Lymph % (Auto) 17.2 L, [place] % (Auto) 9.7, Eos % (Auto) 3.7, Baso % (Auto) 0.4, Absolute Neuts (auto) 6.6, Absolute Lymphs (auto) 1.65, Nucleated RBC % 0, Sodium 138, Potassium 4.1, Chloride 103, Carbon Dioxide 30.0, Anion Gap 5, BUN 16, Creatinine 0.80, Estim Creat Clear Calc 40.66, Est GFR (MDRD) Af Amer 87, Est GFR (MDRD) Non-Af 72, BUN/Creatinine Ratio 19.9, Glucose 131 H, Calcium 8.3 L Micro: Microbiology 04/18/23 11:15 Mucosa - Nose Respiratory Panel (PCR) - Final 04/18/23 08:35 Nasal Secretion SARS-CoV-2 & FLU Antigen (Rapid) - Final Physical Exam Const alert, oriented x3 and no apparent distress General Appearance: cooperative Extremity Extremity Narrative: Left hip dressing clean dry intact compartment soft neurovascular intact EHL tibialis anterior gastrocsoleus intact sensation light touch 1 /4 pedal pulses brisk capillary refill Assessment & Plan Assessment/Plan (1) Left displaced femoral neck fracture: PLAN: Plan Postop day #1 left hip hemiarthroplasty PT OT weightbearing as tolerated with hip precautions DVT prophylaxis Eliquis 2.5 mg twice daily for 3 weeks SCDs TALON hose Should leave dressing undisturbed for 5 days as long as not leaking through, at which point dressing should be removed and incision should be cleaned daily with antibacterial soap and warm water and dry dressing replaced daily at that point Follow-up in the office 2 weeks Patient will likely benefit from rehab/tcu if she is here in 2 weeks I am happy to see her on that side of the hospital for her 2-week postop.
--- NOTE | 2023-04-20 14:38 | CASEMGMT ---
Social Work SW met with pt and introduced self and role of SW. Pt's sister and grandson were in the room as well. SW spoke with pt regarding discharge plan and pt is agreeable that she will need short term rehab prior to returning home. A list of SNF providers including quality and resource use data and consistent with the patient?s preferred geographic region, medical needs, and insurance network were provided from the [facility] Guide. Pt preferred provider is 1. [facility] and 2. [facility]. Referral made to [facility] and they do not have rooms available. Referral to be made to [facility]. DC certified ophthalmic surgical assistant updated. Pt updated that TCU does not have beds available and referral to [facility]. Pt also educated on precert process. Pt inquiring about medical alert systems. Written information provided on options. Plan: [facility], pending acceptance and precert. ALECIA Wells
--- NOTE | 2023-04-20 14:39 | CHAPLAIN ---
Type of Pastoral Visit ___ Initial Visit _x__ Follow-up Visit ___ On-call Visit ___ General Patient Visit ___ Spiritual Assessment ___ Family Conference ___ Bereavement ___ Rapid Response ___ Code Blue ___ Other (describe below) Pastoral Care Referral From ___ Patient _x__ Family ___ Nurse ___ Physician ___ Glass Cylinder Flanger ___ Mh Teacher ___ Other (describe below) Sacrament/Intervention _x__ Active listening ___ Anointing ___ Yazdanism ___ Bereavement ___ Communion ___ Nakita exploration ___ ___ Life review _x__ Prayer ___ Reconciliation ___ Sacrament of Sick _x__ Supportive presence ___ Wedding ___ Other (describe below) Pastoral Comments patient and her sister are in the room and both welcome the follow up visit; pt is able to answer questions appropriately and presents with a good attitude about rehab in her future; pt main concern is finding a rehab that she can go to and have therapy since she lives alone; pt welcomes presence and prayer
[2023-04-21] VITALS (8 sets, daily range): BP systolic 91–115; BP diastolic 50–68; PULSE 80–94; RESP 16–18; TEMP 36.7–37.2; O2SAT 94–98; BMI 28.7
[2023-04-21] MEDS: Levothyroxine 75 MCG Tablet PO (05:55)
[2023-04-21 07:43] LABS: Absolute Lymphocyte Count 1.43 X10^3/uL (0.83-4.51); Absolute Neutrophil Count 6.7 X10^3/uL (2.0-7.7); Basophil# 0.05 X10^3/uL; Basophil% 0.5 % (0-1); Eosinophils% 5.1 % (0-5); Hematocrit 33.8 % (37-47); Hemoglobin 10.2 g/dL (12.0-15.0); Lymphocyte # 1.43 X10^3/ul (0.83-4.51); Lymphocyte % 14.6 % (19-41); Mean Corp Hgb Conc 30.2 g/dL (32-36); Mean Corpuscular Hgb 31.5 pg (27.0-32.0); Mean Corpuscular Volume 104.3 fL (81-99); Mean Platelet Vol. 10.5 fl (6.2-12.0); Monocyte# 1.05 X10^3/uL; Monocyte% 10.7 % (0-10); NRBC Flagged by Analyzer 0 % (0-5); Neutrophil # 6.66 X10^3/uL (2.7-7.7); Neutrophil % 68.2 % (47-70); Platelet Count 204 K/mm3 (150-450); RBC Distribution Width CV 13.7 % (11.6-14.6); RBC Distribution Width SD 52.4 fl (35.1-43.9); Red Blood Count 3.24 M/mm3 (4.2-5.4); White Blood Count 9.8 K/mm3 (4.4-11.0)
--- NOTE | 2023-04-21 08:18 | PN.ORTHO_ITS ---
Subjective Subjective Seen and examined. Patient is doing slightly better pain slightly improved spirits up. No complaints. Objective Data Objective Data Vital Signs: Vital Signs Temp Pulse Resp BP Pulse Ox O2 Del Method O2 Flow Rate 98.1 F 88 16 91/68 95 Room Air 4 04/21/23 03:20 04/21/23 03:20 04/21/23 03:20 04/21/23 03:20 04/21/23 07:14 04/21/23 07:14 04/20/23 20:36 Oxygen Flow Rate (L/min) 4 Oxygen Delivery Method Room Air Weight: 156 lb 15.506 oz Body Mass Index (BMI) 28.7 Intake & Output: Intake and Output for Last 24 Hours 04/19/23 04/20/23 04/21/23 23:59 23:59 23:59 Intake Total 1669.75 / 1669.75 2464.58 / 2464.58 Output Total 250 / 400 150 / 150 550 / 550 Balance 1419.75 / 1269.75 2314.58 / 2314.58 -550 / -550 Lab / Micro Data 04/21/23 07:06 04/20/23 05:34 Labs: Laboratory Results - last 24 hr 04/21/23 07:06: WBC 9.8, RBC 3.24 L, Hgb 10.2 L, Hct 33.8 L, MCV 104.3 H, MCH 31.5, MCHC 30.2 L, RDW Std Deviation 52.4 H, RDW Coeff of Junior 13.7, Plt Count 204, MPV 10.5, Immature Gran % (Auto) 0.900, Neut % (Auto) 68.2, Lymph % (Auto) 14.6 L, [place] % (Auto) 10.7 H, Eos % (Auto) 5.1 H, Baso % (Auto) 0.5, Absolute Neuts (auto) 6.7, Absolute Lymphs (auto) 1.43, Nucleated RBC % 0 Micro: Microbiology 04/18/23 11:15 Mucosa - Nose Respiratory Panel (PCR) - Final 04/18/23 08:35 Nasal Secretion SARS-CoV-2 & FLU Antigen (Rapid) - Final Physical Exam Const alert, oriented x3 and no apparent distress General Appearance: cooperative Extremity Extremity Narrative: Left hip dressing clean dry intact compartment soft neurovascular intact EHL tibialis anterior gastrocsoleus intact sensation light touch 1 /4 pedal pulses brisk capillary refill Assessment & Plan Assessment/Plan (1) Left displaced femoral neck fracture: PLAN: Plan Postop day #2 left hip hemiarthroplasty PT OT weightbearing as tolerated with hip precautions DVT prophylaxis Eliquis 2.5 mg twice daily for 3 weeks SCDs TALON hose Should leave dressing undisturbed for 5 days (remove on 04/24/23) as long as not leaking through, at which point dressing should be removed and incision should be cleaned daily with antibacterial soap and warm water and dry dressing replaced daily at that point Follow-up in the office 2 weeks Patient will likely benefit from rehab/tcu if she is here in 2 weeks I am happy to see her on that side of the hospital for her 2-week postop.
[2023-04-21] MEDS: Senna/Docusate Sodium 1 Tablet 2 TABLET PO ×2 (08:33→20:50)
[2023-04-21] MEDS: Calcium Carb/Vitamin D 1 TABLET Tablet PO (08:33)
[2023-04-21] MEDS: Metoprolol(XL)Succ 25 MG Tablet 12.5 MG PO (08:34)
[2023-04-21] MEDS: Calcium Carbonate 500 MG Tablet PO ×3 (08:35→16:40)
[2023-04-21] MEDS: Furosemide 40 MG Tablet PO (08:35)
[2023-04-21] MEDS: Multivitamins,Ther W-Minerals Tablet 1 TABLET PO (08:35)
[2023-04-21] MEDS: Nystatin Powder 15gm Bottle 1 APPLIC TOPICAL ×2 (08:36→20:48)
[2023-04-21] MEDS: Potassium Chloride Oral Tablet 10 MEQ PO ×2 (08:36→16:40)
[2023-04-21 09:05] LABS: Anion Gap 1 (5-15); BUN 13 mg/dL (7-18); BUN/Creat Ratio 19.7 RATIO (10-20); Calcium,Total 9.4 mg/dL (8.5-10.1); Chloride 100 mmol/L (98-107); Creatinine, Serum 0.66 mg/dL (0.55-1.02); EST Glomerular Filtration Rate 90 mL/min (>60); Est Glom Filt Rate - Afr Amer 109 mL/min (>60); Estimated Creatinine Clearance 32.53 ml/min; Glucose 107 mg/dL (74-106); Potassium 3.9 mmol/L (3.5-5.1); Sodium Level 139 mmol/L (136-145)
--- NOTE | 2023-04-21 09:09 | PN.HOSP_ITS ---
Reason for Visit Reason for Visit: Diagnoses Other elevated white blood cell count (04/17/23) Hypothyroidism, unspecified (04/17/23) Obstructive sleep apnea (adult) (pediatric) (04/17/23) Essential (primary) hypertension (04/17/23) Secondary pulmonary arterial hypertension (04/17/23) Chronic diastolic (congestive) heart failure (04/17/23) Disorders of diaphragm (04/17/23) Fracture of unspecified part of neck of left femur, initial encounter for closed fracture (04/17/23) Presence of other heart-valve replacement (04/17/23) Subjective Subjective Doing better today, does consistently have to have increased O2 through NIPPV at night but do not think patient has acute decompensation, suspect this may be chronic in nature, does not feel short of breath Objective Data Objective Data Vital Signs: Vital Signs Temp Pulse Resp BP Pulse Ox O2 Del Method O2 Flow Rate 98.1 F 82 16 91/68 95 Room Air 4 04/21/23 03:20 04/21/23 08:34 04/21/23 03:20 04/21/23 03:20 04/21/23 07:14 04/21/23 07:14 04/20/23 20:36 Oxygen Flow Rate (L/min) 4 Oxygen Delivery Method Room Air Weight: 71.2 kg Body Mass Index (BMI) 28.7 Intake & Output: Intake and Output for Last 24 Hours 04/19/23 04/20/23 04/21/23 23:59 23:59 23:59 Intake Total 1669.75 / 1669.75 2464.58 / 2464.58 Output Total 250 / 400 150 / 150 550 / 550 Balance 1419.75 / 1269.75 2314.58 / 2314.58 -550 / -550 Lab / Micro Data 04/21/23 07:06 04/21/23 07:06 Labs: Laboratory Results - last 24 hr 04/21/23 07:06: WBC 9.8, RBC 3.24 L, Hgb 10.2 L, Hct 33.8 L, MCV 104.3 H, MCH 31.5, MCHC 30.2 L, RDW Std Deviation 52.4 H, RDW Coeff of Junior 13.7, Plt Count 204, MPV 10.5, Immature Gran % (Auto) 0.900, Neut % (Auto) 68.2, Lymph % (Auto) 14.6 L, [place] % (Auto) 10.7 H, Eos % (Auto) 5.1 H, Baso % (Auto) 0.5, Absolute Neuts (auto) 6.7, Absolute Lymphs (auto) 1.43, Nucleated RBC % 0, Sodium 139, Potassium 3.9, Chloride 100, Carbon Dioxide 38.0 H, Anion Gap 1 L, BUN 13, Creatinine 0.66, Estim Creat Clear Calc 32.53, Est GFR (MDRD) Af Amer 109, Est GFR (MDRD) Non-Af 90, BUN/Creatinine Ratio 19.7, Glucose 107 H, Calcium 9.4 Micro: Microbiology 04/18/23 11:15 Mucosa - Nose Respiratory Panel (PCR) - Final 04/18/23 08:35 Nasal Secretion SARS-CoV-2 & FLU Antigen (Rapid) - Final Physical Exam Narrative General: Alert, oriented, no apparent distress HEENT: Atraumatic, normocephalic Eyes: Anicteric, normal conjunctiva, extraocular movements grossly intact Neck: Supple Respiratory: No rhonchi or wheezes, normal respiratory effort Cardiovascular: Regular rate GI: Soft, nontender, nondistended Extremities: No edema Musculoskeletal: Moving all extremities Neuro: No overt focal neurological deficits Skin: No rashes appreciated Psych: Cooperative Assessment & Plan Assessment/Plan (1) Fracture of left hip: QUALIFIERS: Encounter type: initial encounter Fracture type: closed Qualified Code(s): S72.002A - Fracture of unspecified part of neck of left femur, initial encounter for closed fracture (2) History of aortic valve replacement with bioprosthetic valve: (3) Chronic diastolic (congestive) heart failure: (4) Essential (primary) hypertension: (5) Secondary pulmonary arterial hypertension: (6) Elevated diaphragm: (7) Hypothyroidism: (8) ANDRY (obstructive sleep apnea): PLAN: Plan #Left hip fracture after fall -Fell at house and had left hip pain, patient found to have nondisplaced subcapital fracture of left femoral neck -Pain control, Ortho consult -Plan for surgery -04/19: Surgery this a.m. with Dr. Pinto -04/20: Patient tolerated surgery well, pain control, will need to follow with Ortho, PT/OT -04/21: Awaiting placement, Eliquis 2.5 mg twice daily for 3 weeks, leave dressing in place and removed 04/24 as long as is not leaking through. Will need to follow-up in office in 2 weeks #Hypoxia in setting of chronically elevated diaphragm and ANDRY on CPAP with reported bovine AV valve 10 years ago and chronic diastolic heart failure -Patient seen with student nurse at bedside and off BiPAP both hands checked and sats in 70s with good pleth the patient denying shortness of breath or any kind of respiratory distress -Patient continued to insist this was chronic for her however when placed back on BiPAP sats improved to low to mid 90s on both sides with good pleth -We will get chest x-ray, chest x-ray on admission reported no acute process however does appear to have some increased markings especially at the bases -We will check COVID and respiratory panel -Check BNP and limited echo -Incentive spirometry -Daily weights and I's and O's -Follows with Dr. Paul on an outpatient basis -Continue home Lasix at this time while awaiting results -04/19: Patient was 85% on BiPAP overnight with 2 L O2 bleed and improved to 88% on 5 L, this morning was 93-94 nasal cannula, work-up unimpressive for any acute pulmonary etiology -04/20: Had period overnight where she got hypoxic when switched over to CPAP and had oxygen bleed increased however her O2 sats improved and oxygen was subsequently down titrated, will need to follow with her nuclear station operator upon discharge, no acute etiology and patient with no sustained hypoxia at this time however she was started fluids at 150 an hour per day and she has the chronic diastolic heart failure and usually takes Lasix so we will DC fluids and give her dose of Lasix as this could have contributed -04/21: Has required increased O2 through CPAP overnight since she has been here, suspect this may be chronic, will need follow-up with Dr. Paul, continue NIPPV nightly #Hypothyroidism -Continue Synthroid #Hx polio -W/ residually reported left sided weakness -04/20: PT/OT #DVT ppx: Eliquis 2.5 mg twice daily for 3 weeks Sarah Marie MD Time spent in the patient's overall evaluation,decision-making process, review of diagnostic data, adjustment of management, discussion with other providers, nursing nursing and ancillary staff involved in patient's care documentation, 35 minutes Charges/Coding Visit Charges Inpatient E&M: 29829 Subs Hosp L2
[2023-04-21] MEDS: Cholecalciferol (VIT D3) 25 MCG TABLET (1,000 UNITS) PO (11:20)
[2023-04-21] MEDS: APIXABAN 2.5 MG TABLET (WCH) PO ×2 (12:33→20:49)
[2023-04-21] MEDS: Menthol/Lanolin/Calamine/Znox 113 GM Tube 1 APPLIC TOPICAL (20:53)
[2023-04-22] VITALS (9 sets, daily range): BP systolic 105–123; BP diastolic 46–74; PULSE 81–93; RESP 16–18; TEMP 36.6–37.1; O2SAT 93–100
[2023-04-22] MEDS: Levothyroxine 75 MCG Tablet PO (05:14)
--- NOTE | 2023-04-22 07:26 | PCM.PN.HOSP ---
Reason for Visit Reason for Visit: Diagnoses Other elevated white blood cell count (04/17/23) Hypothyroidism, unspecified (04/17/23) Obstructive sleep apnea (adult) (pediatric) (04/17/23) Essential (primary) hypertension (04/17/23) Secondary pulmonary arterial hypertension (04/17/23) Chronic diastolic (congestive) heart failure (04/17/23) Disorders of diaphragm (04/17/23) Fracture of unspecified part of neck of left femur, initial encounter for closed fracture (04/17/23) Presence of other heart-valve replacement (04/17/23) Subjective Subjective Doing well, no shortness of breath, no significant pain, no focal complaints Objective Data Objective Data Vital Signs: Vital Signs Temp Pulse Resp BP Pulse Ox O2 Del Method O2 Flow Rate 97.9 F 81 18 105/74 93 CPAP 5 04/22/23 03:30 04/22/23 03:30 04/22/23 03:30 04/22/23 03:30 04/22/23 06:50 04/22/23 06:50 04/22/23 06:50 Oxygen Flow Rate (L/min) 5 Oxygen Delivery Method CPAP Weight: 71.2 kg Body Mass Index (BMI) 28.7 Intake & Output: Intake and Output for Last 24 Hours 04/20/23 04/21/23 04/22/23 23:59 23:59 23:59 Intake Total 2464.58 / 2464.58 800 / 1000 500 / 500 Output Total 150 / 150 550 / 550 Balance 2314.58 / 2314.58 250 / 450 500 / 500 Lab / Micro Data 04/21/23 07:06 04/21/23 07:06 Labs: Laboratory Results - last 24 hr 04/21/23 07:06: WBC 9.8, RBC 3.24 L, Hgb 10.2 L, Hct 33.8 L, MCV 104.3 H, MCH 31.5, MCHC 30.2 L, RDW Std Deviation 52.4 H, RDW Coeff of Junior 13.7, Plt Count 204, MPV 10.5, Immature Gran % (Auto) 0.900, Neut % (Auto) 68.2, Lymph % (Auto) 14.6 L, Callaway % (Auto) 10.7 H, Eos % (Auto) 5.1 H, Baso % (Auto) 0.5, Absolute Neuts (auto) 6.7, Absolute Lymphs (auto) 1.43, Nucleated RBC % 0, Sodium 139, Potassium 3.9, Chloride 100, Carbon Dioxide 38.0 H, Anion Gap 1 L, BUN 13, Creatinine 0.66, Estim Creat Clear Calc 32.53, Est GFR (MDRD) Af Amer 109, Est GFR (MDRD) Non-Af 90, BUN/Creatinine Ratio 19.7, Glucose 107 H, Calcium 9.4 Micro: Microbiology 04/18/23 11:15 Mucosa - Nose Respiratory Panel (PCR) - Final 04/18/23 08:35 Nasal Secretion SARS-CoV-2 & FLU Antigen (Rapid) - Final Physical Exam Narrative General: Alert, oriented, no apparent distress HEENT: Atraumatic, normocephalic Eyes: Anicteric, normal conjunctiva, extraocular movements grossly intact Neck: Supple Respiratory: No rhonchi or wheezes, normal respiratory effort Cardiovascular: Regular rate GI: Soft, nontender, nondistended Extremities: No edema Musculoskeletal: Moving all extremities Neuro: No overt focal neurological deficits Skin: No rashes appreciated Psych: Cooperative Assessment & Plan Assessment/Plan (1) Fracture of left hip: QUALIFIERS: Encounter type: initial encounter Fracture type: closed Qualified Code(s): S72.002A - Fracture of unspecified part of neck of left femur, initial encounter for closed fracture (2) History of aortic valve replacement with bioprosthetic valve: (3) Chronic diastolic (congestive) heart failure: (4) Essential (primary) hypertension: (5) Secondary pulmonary arterial hypertension: (6) Elevated diaphragm: (7) Hypothyroidism: (8) ANDRY (obstructive sleep apnea): PLAN: Plan #Left hip fracture after fall -Fell at house and had left hip pain, patient found to have nondisplaced subcapital fracture of left femoral neck -Pain control, Ortho consult -Plan for surgery -04/19: Surgery this a.m. with Dr. Pinto -04/20: Patient tolerated surgery well, pain control, will need to follow with Ortho, PT/OT -04/21: Awaiting placement, Eliquis 2.5 mg twice daily for 3 weeks, leave dressing in place and removed 04/24 as long as is not leaking through. Will need to follow-up in office in 2 weeks -04/22: Awaiting placement, hopefully early this week #Hypoxia in setting of chronically elevated diaphragm and ANDRY on CPAP with reported bovine AV valve 10 years ago and chronic diastolic heart failure -Patient seen with student nurse at bedside and off BiPAP both hands checked and sats in 70s with good pleth the patient denying shortness of breath or any kind of respiratory distress -Patient continued to insist this was chronic for her however when placed back on BiPAP sats improved to low to mid 90s on both sides with good pleth -We will get chest x-ray, chest x-ray on admission reported no acute process however does appear to have some increased markings especially at the bases -We will check COVID and respiratory panel -Check BNP and limited echo -Incentive spirometry -Daily weights and I's and O's -Follows with Dr. Paul on an outpatient basis -Continue home Lasix at this time while awaiting results -04/19: Patient was 85% on BiPAP overnight with 2 L O2 bleed and improved to 88% on 5 L, this morning was 93-94 nasal cannula, work-up unimpressive for any acute pulmonary etiology -04/20: Had period overnight where she got hypoxic when switched over to CPAP and had oxygen bleed increased however her O2 sats improved and oxygen was subsequently down titrated, will need to follow with her nanotechnology engineering technologist upon discharge, no acute etiology and patient with no sustained hypoxia at this time however she was started fluids at 150 an hour per day and she has the chronic diastolic heart failure and usually takes Lasix so we will DC fluids and give her dose of Lasix as this could have contributed -04/21: Has required increased O2 through CPAP overnight since she has been here, suspect this may be chronic, will need follow-up with Dr. Paul, continue NIPPV nightly -04/22: Stable #Hypothyroidism -Continue Synthroid #Hx polio -W/ residually reported left sided weakness -04/20: PT/OT #DVT ppx: Eliquis 2.5 mg twice daily for 3 weeks Sarah Marie MD Time spent in the patient's overall evaluation,decision-making process, review of diagnostic data, adjustment of management, discussion with other providers, nursing nursing and ancillary staff involved in patient's care documentation, 35 minutes Charges/Coding Visit Charges Inpatient E&M: 38793 Subs Hosp L2
[2023-04-22] MEDS: Potassium Chloride Oral Tablet 10 MEQ PO ×2 (07:27→16:46)
[2023-04-22] MEDS: Calcium Carbonate 500 MG Tablet PO ×3 (07:27→16:46)
[2023-04-22] MEDS: Multivitamins,Ther W-Minerals Tablet 1 TABLET PO (07:27)
[2023-04-22] MEDS: Calcium Carb/Vitamin D 1 TABLET Tablet PO (07:27)
[2023-04-22] MEDS: Cholecalciferol (VIT D3) 25 MCG TABLET (1,000 UNITS) PO (07:27)
[2023-04-22] MEDS: Metoprolol(XL)Succ 25 MG Tablet 12.5 MG PO (07:28)
[2023-04-22] MEDS: Nystatin Powder 15gm Bottle 1 APPLIC TOPICAL ×2 (07:29→20:01)
[2023-04-22] MEDS: Senna/Docusate Sodium 1 Tablet 2 TABLET PO (07:29)
[2023-04-22] MEDS: Furosemide 40 MG Tablet PO (07:29)
[2023-04-22] MEDS: Menthol/Lanolin/Calamine/Znox 113 GM Tube 1 APPLIC TOPICAL ×2 (07:30→20:09)
[2023-04-22] MEDS: APIXABAN 2.5 MG TABLET (WCH) PO ×2 (10:39→20:09)
[2023-04-23] VITALS (8 sets, daily range): BP systolic 113–132; BP diastolic 49–80; PULSE 68–92; RESP 16–18; TEMP 36.6–36.9; O2SAT 95–98; BMI 28.6
[2023-04-23] MEDS: Levothyroxine 75 MCG Tablet PO (05:05)
--- NOTE | 2023-04-23 07:41 | PCM.PN.HOSP ---
Reason for Visit Reason for Visit: Diagnoses Other elevated white blood cell count (04/17/23) Hypothyroidism, unspecified (04/17/23) Obstructive sleep apnea (adult) (pediatric) (04/17/23) Essential (primary) hypertension (04/17/23) Secondary pulmonary arterial hypertension (04/17/23) Chronic diastolic (congestive) heart failure (04/17/23) Disorders of diaphragm (04/17/23) Fracture of unspecified part of neck of left femur, initial encounter for closed fracture (04/17/23) Presence of other heart-valve replacement (04/17/23) Subjective Subjective Patient is an 87-year-old lady admitted following a fall found to have left hip fracture underwent ORIF on 04/19/2023 Objective Data Objective Data Vital Signs: Vital Signs Temp Pulse Resp BP Pulse Ox O2 Del Method O2 Flow Rate 98 F 78 16 113/49 L 95 Room Air 2 04/23/23 05:05 04/23/23 05:05 04/23/23 05:05 04/23/23 05:05 04/23/23 05:05 04/23/23 07:22 04/22/23 20:26 Oxygen Flow Rate (L/min) 2 Oxygen Delivery Method Room Air Weight: 71.1 kg Body Mass Index (BMI) 28.6 Intake & Output: Intake and Output for Last 24 Hours 04/21/23 04/22/23 04/23/23 23:59 23:59 23:59 Intake Total 800 / 1000 1150 / 1150 100 / 100 Output Total 550 / 550 100 / 100 200 / 200 Balance 250 / 450 1050 / 1050 -100 / -100 Lab / Micro Data 04/21/23 07:06 04/21/23 07:06 Micro: Microbiology 04/18/23 11:15 Mucosa - Nose Respiratory Panel (PCR) - Final 04/18/23 08:35 Nasal Secretion SARS-CoV-2 & FLU Antigen (Rapid) - Final Physical Exam Narrative GENERAL: cooperative HEENT: Atraumatic; normocephalic EYES; Anicteric, Normal Conjunctiva NECK; supple, normal thyroid, RESPIRATORY: Diminished to auscultation CARDIOVASCULAR: Regular S1 S2, GI: soft, normoactive bowel sounds, : No Renal angle tenderness; EXTREMITIES: No edema, no clubbing, MUSCULOSKELETAL: no muscle wasting NEURO: Awake; oriented to place and person SKIN: No Rash PSYCH; Flat affect Assessment & Plan Assessment/Plan (1) Fracture of left hip: QUALIFIERS: Encounter type: initial encounter Fracture type: closed Qualified Code(s): S72.002A - Fracture of unspecified part of neck of left femur, initial encounter for closed fracture (2) History of aortic valve replacement with bioprosthetic valve: (3) Chronic diastolic (congestive) heart failure: (4) Essential (primary) hypertension: (5) Secondary pulmonary arterial hypertension: (6) Elevated diaphragm: (7) Hypothyroidism: (8) ANDRY (obstructive sleep apnea): PLAN: Plan Patient is an 87-year-old lady admitted following a fall found to have left hip fracture underwent ORIF on 04/19/2023 1. Fall with left hip femoral neck displaced fracture ? Patient underwent left hip hemiarthroplasty on 04/19/2023. 2. Physical deconditioning - Requested for PT OT eval and protective services social worker to assist with discharge planning 3. Chronic hypoxia ? Secondary to chronically elevated diaphragm as well as obstructive sleep apnea ? Patient is on CPAP at night. Pulmonary toileting encouraged 4. Hypertension - Blood pressure controlled, home medications continued with dose adjustment as needed 5. Hypothyroidism - Patient is on levothyroxine home dose continued 6. 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 DVT prophylaxis ? On apixaban plan is to continue for 3 weeks Time spent in the patient's overall evaluation,decision-making process, review of diagnostic data, adjustment of management, discussion with other providers, nursing nursing and ancillary staff involved in patient's care documentation, 35 minutes Charges/Coding Visit Charges Inpatient E&M: 31637 Subs Hosp L2
--- NOTE | 2023-04-23 09:07 | CASEMGMT ---
Discharge Planning Updates sent to [facility] via [employer]. Asked for status of referral. Karlie Rock, Discharge Planning Asst.
[2023-04-23] MEDS: APIXABAN 2.5 MG TABLET (WCH) PO ×2 (09:16→20:44)
[2023-04-23] MEDS: Metoprolol(XL)Succ 25 MG Tablet 12.5 MG PO (09:17)
[2023-04-23] MEDS: Multivitamins,Ther W-Minerals Tablet 1 TABLET PO (09:18)
[2023-04-23] MEDS: Calcium Carb/Vitamin D 1 TABLET Tablet PO (09:18)
[2023-04-23] MEDS: Potassium Chloride Oral Tablet 10 MEQ PO ×2 (09:18→18:32)
[2023-04-23] MEDS: Calcium Carbonate 500 MG Tablet PO ×2 (09:19→18:32)
[2023-04-23] MEDS: Furosemide 40 MG Tablet PO (09:19)
[2023-04-23] MEDS: Nystatin Powder 15gm Bottle 1 APPLIC TOPICAL ×2 (09:20→20:43)
[2023-04-23] MEDS: Cholecalciferol (VIT D3) 25 MCG TABLET (1,000 UNITS) PO (09:20)
[2023-04-23] MEDS: Menthol/Lanolin/Calamine/Znox 113 GM Tube 1 APPLIC TOPICAL ×2 (09:23→20:43)
--- NOTE | 2023-04-23 10:09 | CASEMGMT ---
Discharge Planning Patient has been accepted by [facility]. Asked for precert to be submitted. Karlie Rock, Discharge Planning Asst.
[2023-04-23] MEDS: Ibuprofen 600 MG Tablet PO (14:48)
[2023-04-23] MEDS: Acetaminophen 325 MG Tablet 650 MG PO (18:37)
[2023-04-24] VITALS (8 sets, daily range): BP systolic 99–106; BP diastolic 46–57; PULSE 84–92; RESP 16–18; TEMP 36.5–37; O2SAT 87–100; BMI 28.7
[2023-04-24] MEDS: Levothyroxine 75 MCG Tablet PO (05:43)
--- NOTE | 2023-04-24 07:36 | PCM.PN.HOSP ---
Reason for Visit Reason for Visit: Diagnoses Other elevated white blood cell count (04/17/23) Hypothyroidism, unspecified (04/17/23) Obstructive sleep apnea (adult) (pediatric) (04/17/23) Essential (primary) hypertension (04/17/23) Secondary pulmonary arterial hypertension (04/17/23) Chronic diastolic (congestive) heart failure (04/17/23) Disorders of diaphragm (04/17/23) Fracture of unspecified part of neck of left femur, initial encounter for closed fracture (04/17/23) Presence of other heart-valve replacement (04/17/23) Subjective Subjective Patient seen has tolerated physical therapy well so far awaiting insurance precertification prior to transfer to [facility] facility Objective Data Objective Data Vital Signs: Vital Signs Temp Pulse Resp BP Pulse Ox O2 Del Method O2 Flow Rate 97.9 F 84 16 100/55 L 100 CPAP 2 04/24/23 05:37 04/24/23 05:37 04/24/23 05:37 04/24/23 05:37 04/24/23 05:37 04/24/23 05:37 04/23/23 20:40 Oxygen Flow Rate (L/min) 2 Oxygen Delivery Method CPAP Weight: 71.3 kg Body Mass Index (BMI) 28.7 Intake & Output: Intake and Output for Last 24 Hours 04/22/23 04/23/23 04/24/23 23:59 23:59 23:59 Intake Total 1150 / 1150 760 / 760 Output Total 100 / 100 200 / 200 400 / 400 Balance 1050 / 1050 560 / 560 -400 / -400 Lab / Micro Data 04/21/23 07:06 04/21/23 07:06 Micro: Microbiology 04/18/23 11:15 Mucosa - Nose Respiratory Panel (PCR) - Final 04/18/23 08:35 Nasal Secretion SARS-CoV-2 & FLU Antigen (Rapid) - Final Physical Exam Narrative GENERAL: cooperative HEENT: Atraumatic; normocephalic EYES; Anicteric, Normal Conjunctiva NECK; supple, normal thyroid, RESPIRATORY: Diminished to auscultation CARDIOVASCULAR: Regular S1 S2, GI: soft, normoactive bowel sounds, : No Renal angle tenderness; EXTREMITIES: No edema, no clubbing, MUSCULOSKELETAL: no muscle wasting NEURO: Awake; oriented to place and person SKIN: No Rash PSYCH; Flat affect Assessment & Plan Assessment/Plan (1) Fracture of left hip: QUALIFIERS: Encounter type: initial encounter Fracture type: closed Qualified Code(s): S72.002A - Fracture of unspecified part of neck of left femur, initial encounter for closed fracture PLAN: Plan Patient is an 87-year-old lady admitted following a fall found to have left hip fracture underwent ORIF on 04/19/2023 1. Fall with left hip femoral neck displaced fracture ? Patient underwent left hip hemiarthroplasty on 04/19/2023. 2. Physical deconditioning - Requested for PT OT eval and social media sr strategy manager to assist with discharge planning 3. Chronic hypoxia ? Secondary to chronically elevated diaphragm as well as obstructive sleep apnea ? Patient is on CPAP at night. Pulmonary toileting encouraged 4. Hypertension - Blood pressure controlled, home medications continued with dose adjustment as needed 5. Hypothyroidism - Patient is on levothyroxine home dose continued 6. 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 DVT prophylaxis ? On apixaban plan is to continue for 3 weeks Time spent in the patient's overall evaluation,decision-making process, review of diagnostic data, adjustment of management, discussion with other providers, nursing nursing and ancillary staff involved in patient's care documentation, 35 minutes Charges/Coding Visit Charges Inpatient E&M: [id number] [facility] Hosp L2
[2023-04-24] MEDS: Multivitamins,Ther W-Minerals Tablet 1 TABLET PO (08:11)
[2023-04-24] MEDS: Calcium Carbonate 500 MG Tablet PO ×3 (08:11→16:37)
[2023-04-24] MEDS: Calcium Carb/Vitamin D 1 TABLET Tablet PO (08:11)
[2023-04-24] MEDS: APIXABAN 2.5 MG TABLET (WCH) PO ×2 (08:11→21:16)
[2023-04-24] MEDS: Potassium Chloride Oral Tablet 10 MEQ PO ×2 (08:11→16:37)
[2023-04-24] MEDS: Nystatin Powder 15gm Bottle 1 APPLIC TOPICAL ×2 (08:12→21:15)
[2023-04-24] MEDS: Cholecalciferol (VIT D3) 25 MCG TABLET (1,000 UNITS) PO (08:12)
[2023-04-24] MEDS: Menthol/Lanolin/Calamine/Znox 113 GM Tube 1 APPLIC TOPICAL ×2 (08:12→21:15)
[2023-04-24] MEDS: Acetaminophen 325 MG Tablet 650 MG PO ×2 (10:41→21:17)
[2023-04-24] MEDS: Ibuprofen 600 MG Tablet PO (12:48)
--- NOTE | 2023-04-24 14:46 | CHAPLAIN ---
Type of Pastoral Visit ___ Initial Visit _x__ Follow-up Visit ___ On-call Visit ___ General Patient Visit ___ Spiritual Assessment ___ Family Conference ___ Bereavement ___ Rapid Response ___ Code Blue ___ Other (describe below) Pastoral Care Referral From _x__ Patient _x__ Family ___ Nurse ___ Physician ___ Certified Nutritionist ___ Horticulture Worker ___ Other (describe below) Sacrament/Intervention _x__ Active listening ___ Anointing ___ Christianity ___ Bereavement ___ Communion ___ Nakita exploration ___ ___ Life review _x__ Prayer ___ Reconciliation ___ Sacrament of Sick _x__ Supportive presence ___ Wedding ___ Other (describe below) Pastoral Comments follow up with patient; pt is waiting for placement; pt admits some frustration at the wait on insurance and available room for rehab but trying to be patient and accepting; pt is thankful for care in the hospital; pt welcomes presence and prayer
--- NOTE | 2023-04-24 15:59 | CASEMGMT ---
Discharge Planning [facility] has obtained auth. SW updated. Karlie Rock, Discharge Planning Asst.
[2023-04-24] MEDS: 0.9% Saline Lock 10 ML Syringe IV (21:14)
[2023-04-25 05:24] VITALS: BP 102/48; PULSE 82; RESP 20; TEMP 36.8; O2SAT 99
[2023-04-25] MEDS: Levothyroxine 75 MCG Tablet PO (05:30)
[2023-04-25] MEDS: Acetaminophen 325 MG Tablet 650 MG PO ×2 (05:30→11:46)
[2023-04-25 05:38] VITALS: BMI 28.8
[2023-04-25 07:45] VITALS: BP 107/54; PULSE 80; RESP 20; TEMP 36.6; O2SAT 94
--- NOTE | 2023-04-25 07:55 | PCM.PN.HOSP ---
Reason for Visit Reason for Visit: Diagnoses Other elevated white blood cell count (04/17/23) Hypothyroidism, unspecified (04/17/23) Obstructive sleep apnea (adult) (pediatric) (04/17/23) Essential (primary) hypertension (04/17/23) Secondary pulmonary arterial hypertension (04/17/23) Chronic diastolic (congestive) heart failure (04/17/23) Disorders of diaphragm (04/17/23) Fracture of unspecified part of neck of left femur, initial encounter for closed fracture (04/17/23) Presence of other heart-valve replacement (04/17/23) Subjective Subjective Patient seen awaiting transfer to nursing home [facility] Objective Data Objective Data Vital Signs: Vital Signs Temp Pulse Resp BP Pulse Ox O2 Del Method O2 Flow Rate 97.8 F 80 20 H 107/54 L 92 CPAP 2 04/25/23 07:45 04/25/23 07:45 04/25/23 07:45 04/25/23 07:45 04/25/23 07:45 04/25/23 07:45 04/24/23 15:00 Oxygen Flow Rate (L/min) 2 Oxygen Delivery Method CPAP Weight: 71.1 kg Body Mass Index (BMI) 28.8 Intake & Output: Intake and Output for Last 24 Hours 04/23/23 04/24/23 04/25/23 23:59 23:59 23:59 Intake Total 760 / 760 300 / 300 Output Total 200 / 200 700 / 700 500 / 500 Balance 560 / 560 -400 / -400 -500 / -500 Lab / Micro Data 04/21/23 07:06 04/21/23 07:06 Micro: Microbiology 04/18/23 11:15 Mucosa - Nose Respiratory Panel (PCR) - Final 04/18/23 08:35 Nasal Secretion SARS-CoV-2 & FLU Antigen (Rapid) - Final Physical Exam Narrative GENERAL: cooperative HEENT: Atraumatic; normocephalic EYES; Anicteric, Normal Conjunctiva NECK; supple, normal thyroid, RESPIRATORY: Diminished to auscultation CARDIOVASCULAR: Regular S1 S2, GI: soft, normoactive bowel sounds, : No Renal angle tenderness; EXTREMITIES: No edema, no clubbing, MUSCULOSKELETAL: no muscle wasting NEURO: Awake; oriented to place and person SKIN: No Rash PSYCH; Flat affect Assessment & Plan Assessment/Plan (1) Fracture of left hip: QUALIFIERS: Encounter type: initial encounter Fracture type: closed Qualified Code(s): S72.002A - Fracture of unspecified part of neck of left femur, initial encounter for closed fracture PLAN: Plan Patient is an 87-year-old lady admitted following a fall found to have left hip fracture underwent ORIF on 04/19/2023 1. Fall with left hip femoral neck displaced fracture ? Patient underwent left hip hemiarthroplasty on 04/19/2023. 2. Physical deconditioning - Requested for PT OT eval and psychosocial rehabilitation counselor to assist with discharge planning 3. Chronic hypoxia ? Secondary to chronically elevated diaphragm as well as obstructive sleep apnea ? Patient is on CPAP at night. Pulmonary toileting encouraged 4. Hypertension - Blood pressure controlled, home medications continued with dose adjustment as needed 5. Hypothyroidism - Patient is on levothyroxine home dose continued 6. 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 DVT prophylaxis ? On apixaban plan is to continue for 3 weeks Time spent in the patient's overall evaluation,decision-making process, review of diagnostic data, adjustment of management, discussion with other providers, nursing nursing and ancillary staff involved in patient's care documentation, 25 minutes Charges/Coding Visit Charges Inpatient E&M: 79520 Subs Hosp L2
[2023-04-25 08:05] VITALS: RESP 20; O2SAT 94
[2023-04-25 08:54] VITALS: PULSE 80
[2023-04-25] MEDS: Cholecalciferol (VIT D3) 25 MCG TABLET (1,000 UNITS) PO (08:54)
[2023-04-25] MEDS: Metoprolol(XL)Succ 25 MG Tablet 12.5 MG PO (08:54)
[2023-04-25] MEDS: Calcium Carb/Vitamin D 1 TABLET Tablet PO (08:55)
[2023-04-25] MEDS: Multivitamins,Ther W-Minerals Tablet 1 TABLET PO (08:55)
[2023-04-25] MEDS: Potassium Chloride Oral Tablet 10 MEQ PO (08:55)
[2023-04-25] MEDS: Calcium Carbonate 500 MG Tablet PO ×2 (08:55→11:14)
[2023-04-25] MEDS: APIXABAN 2.5 MG TABLET (WCH) PO (08:55)
[2023-04-25] MEDS: Furosemide 40 MG Tablet PO (08:55)
--- NOTE | 2023-04-25 09:57 | TREXTCAR_ITS ---
Diet Diet Order/Speech Therapy: 04/19/23 14:32 Diet: Regular - General Is pt able to select menu?: Yes Wound(s) lt hip: Wound Type: Surgical Incision Therapies Physical Therapy: Eval and Treat Occupational Therapy: Eval and Treat Problem/Diagnosis (1) Fracture of left hip: Status: Acute Code(s): S72.002A - Fracture of unspecified part of neck of left femur, initial encounter for closed fracture Plan Patient is an 87-year-old lady admitted following a fall found to have left hip fracture underwent ORIF on 04/19/2023 1. Fall with left hip femoral neck displaced fracture ? Patient underwent left hip hemiarthroplasty on 04/19/2023. 2. Physical deconditioning - Requested for PT OT eval and social sciences department chair to assist with discharge planning 3. Chronic hypoxia ? Secondary to chronically elevated diaphragm as well as obstructive sleep apnea ? Patient is on CPAP at night. Pulmonary toileting encouraged 4. Hypertension - Blood pressure controlled, home medications continued with dose adjustment as needed 5. Hypothyroidism - Patient is on levothyroxine home dose continued 6. 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 DVT prophylaxis ? On apixaban plan is to continue for 3 weeks Time spent in the patient's overall evaluation,decision-making process, review of diagnostic data, adjustment of management, discussion with other providers, nursing nursing and ancillary staff involved in patient's care documentation, 25 minutes Allergies/Procedures Done in Hospital Allergies aspirin Allergy (Verified 04/19/23 06:57) made my blood too thin hydrocodone [From Vicodin] Allergy (Verified 04/19/23 06:57) feels like getting high niacin Adverse Reaction (Verified 04/19/23 06:57) severe sweating simvastatin Adverse Reaction (Verified 04/19/23 06:57) muscle aches Type of Care/Length of Stay Estimated LOS: Convalescent Care Less Than 30 days Type of Care Needed: Skilled Rehab Potential: Good Prognosis: Good Additional Orders/Day of Discharge Day of Discharge: 04/25/23 Dietary and Speech Recommendations Dietitian Recommendations/Changes: Continue liberalized Regular diet to optimize oral intakes. Discharge Plan Admission Admit Date/Time: 04/17/23 21:00 Attending Provider: Rene Kim Primary Care Provider: Ethan Lau Consulting Providers: Abdirashid Pinto; Koby Ochoa; Sarah Marie Instructions Additional Instructions / Restrictions: -Should leave dressing undisturbed for 5 days as long as not leaking through, at which point dressing should be removed and incision should be cleaned daily with antibacterial soap and warm water and dry dressing replaced daily at that point -Follow-up in the office 2 weeks with orthopedics -PT OT weightbearing as tolerated with hip precautions -DVT prophylaxis Eliquis 2.5 mg twice daily for 3 weeks Discharge Orders/Prescriptions Prescriptions: New acetaminophen 325 mg Tablet 650 mg PO Q6H PRN PRN (Reason: Pain 1-10 Or Fever >100.7) Qty: 0 0RF Eliquis 5 mg Tablet 2.5 mg PO BID Qty: 40 0RF sennosides-docusate sodium [Stool Softener-Stimulant Laxat] 8.6-50 mg Tablet 2 tab PO BID Qty: 0 0RF calcium carbonate 200 mg calcium (500 mg) Tablet,Chewable 500 mg PO TIDCM Qty: 0 0RF oxycodone 5 mg Tablet 5 mg PO Q4H PRN PRN (Reason: Pain Score 4-10) 3 Days Qty: 12 0RF Continued multivitamin with minerals 1 EACH tablet 1 tab PO DAILY cholecalciferol (vitamin D3) 1,000 UNIT tablet 1,000 unit PO DAILY calcium carbonate-vitamin D3 1 EACH tablet 1 tab PO DAILY potassium chloride 10 MEQ tablet 10 meq PO BIDCM 0RF meclizine 25 mg Tablet 25 mg PO TID PRN PRN (Reason: dizziness) Qty: 21 0RF levothyroxine 75 mcg tablet 75 mcg PO DAILY Qty: 90 3RF furosemide 40 mg tablet 40 mg PO DAILY Qty: 90 3RF metoprolol succinate 25 mg tablet extended release 24 hr 25 mg PO DAILY Qty: 90 3RF Referrals / Follow Up: Ethan Lau MD [Primary Care Provider] - Disposition Disposition (needs filled in before D/C Order can be placed): Care Home Facility (1) Fracture of left hip Qualifiers: Encounter type: initial encounter Fracture type: closed Qualified Code(s): S72.002A - Fracture of unspecified part of neck of left femur, initial encounter for closed fracture
--- NOTE | 2023-04-25 10:03 | DS.PCM_ITS ---
Providers Date of Admission: 04/17/23 Date of Discharge: 04/25/23 Primary Care Physician: Dr. Ethan Lau MD Consultations 04/17/23 22:14 Consult: Orthopedics Routine Consulting Provider: Abdirashid Pinto Reason for Consult: hip fxr EMERGENT Consult: No MD Notified: Yes Date Notified: 04/17/23 Time Notified: 21:04 Method of Notification: ED Physician Initiated Reason For Visit: LEFT HIP FRACTURE Diagnosis Discharge Diagnosis (1) Fracture of left hip: Status: Acute Code(s): S72.002A - Fracture of unspecified part of neck of left femur, initial encounter for closed fracture Qualifiers: Encounter type: initial encounter Fracture type: closed Qualified Code(s): S72.002A - Fracture of unspecified part of neck of left femur, initial encounter for closed fracture Plan Patient is an 87-year-old lady admitted following a fall found to have left hip fracture underwent ORIF on 04/19/2023 1. Fall with left hip femoral neck displaced fracture ? Patient underwent left hip hemiarthroplasty on 04/19/2023. 2. Physical deconditioning - Requested for PT OT eval and long term care social worker to assist with discharge planning 3. Chronic hypoxia ? Secondary to chronically elevated diaphragm as well as obstructive sleep apnea ? Patient is on CPAP at night. Pulmonary toileting encouraged 4. Hypertension - Blood pressure controlled, home medications continued with dose adjustment as needed 5. Hypothyroidism - Patient is on levothyroxine home dose continued 6. 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 DVT prophylaxis ? On apixaban plan is to continue for 3 weeks Time spent in the patient's overall evaluation,decision-making process, review of diagnostic data, adjustment of management, discussion with other providers, nursing nursing and ancillary staff involved in patient's care documentation, 35 minutes Medications at Discharge Home Medications calcium carbonate 600 mg-vitamin D3 20 mcg (800 unit) tablet 1 tab PO DAILY supplement 06/30/19 cholecalciferol (vitamin D3) 25 mcg (1,000 unit) tablet 1,000 unit PO DAILY supplement 06/30/19 multivitamin with minerals 1 tab PO DAILY supplement 06/30/19 potassium chloride 10 mEq tablet,extended release(part/cryst) 10 meq PO BIDCM 08/22/19 meclizine 25 mg tablet 25 mg PO TID PRN PRN dizziness #21 tabs 07/17/22 furosemide 40 mg tablet 40 mg PO DAILY #90 tabs 05/23/22 levothyroxine 75 mcg tablet 75 mcg PO DAILY #90 tabs 05/23/22 metoprolol succinate 25 mg tablet,extended release 24 hr 25 mg PO DAILY #90 tabs 08/28/22 acetaminophen 325 mg tablet 650 mg (2 x 325 mg) PO Q6H PRN PRN Pain 1-10 Or Fever >100.7 #0 tabs 04/25/23 apixaban 5 mg tablet (Eliquis) 2.5 mg (1/2 x 5 mg) PO BID #40 tabs 04/25/23 calcium carbonate 200 mg calcium (500 mg) chewable tablet 500 mg (2.5 x 200 mg calcium (500 mg)) PO TIDCM #0 tabs 04/25/23 oxycodone 5 mg tablet 5 mg PO Q4H PRN PRN Pain Score 4-10 3 days #12 tabs 04/25/23 sennosides 8.6 mg-docusate sodium 50 mg tablet (Stool Softener-Stimulant Laxative) 2 tab PO BID #0 tabs 04/25/23 Hospital Course Summary of Care Provided Minutes Spent on Discharge: 35 Physical Exam Narrative GENERAL: cooperative HEENT: Atraumatic; normocephalic EYES; Anicteric, Normal Conjunctiva NECK; supple, normal thyroid, RESPIRATORY: Diminished to auscultation CARDIOVASCULAR: Regular S1 S2, GI: soft, normoactive bowel sounds, : No Renal angle tenderness; EXTREMITIES: No edema, no clubbing, MUSCULOSKELETAL: no muscle wasting NEURO: Awake; oriented to place and person SKIN: No Rash PSYCH; Flat affect Weight / BMI Weight Weight: 71.1 kg Body Mass Index (BMI) 28.8 ABG / Lab / Microbiology Data 04/21/23 07:06 04/21/23 07:06 Microbiology: Microbiology 04/18/23 11:15 Mucosa - Nose Respiratory Panel (PCR) - Final 04/18/23 08:35 Nasal Secretion SARS-CoV-2 & FLU Antigen (Rapid) - Final D/C Instructions Discharge Diet: No restrictions Discharge Activity: Return to Normal Activity Call your doctor if you observe: Fever of 101 or Higher, Shortness of breath, Fainting spells and Chest pain Meaningful Use Info Meaningful Use Diagnoses (Choose all that apply): None applicable Discharge Plan Admission Admit Date/Time: 04/17/23 21:00 Attending Provider: Rene Kim Primary Care Provider: Ethan Lau Consulting Providers: Abdirashid Pinto; Koby Ochoa; Sarah Marie Instructions Additional Instructions / Restrictions: -Should leave dressing undisturbed for 5 days as long as not leaking through, at which point dressing should be removed and incision should be cleaned daily with antibacterial soap and warm water and dry dressing replaced daily at that point -Follow-up in the office 2 weeks with orthopedics -PT OT weightbearing as tolerated with hip precautions -DVT prophylaxis Eliquis 2.5 mg twice daily for 3 weeks Discharge Orders/Prescriptions Prescriptions: New acetaminophen 325 mg Tablet 650 mg PO Q6H PRN PRN (Reason: Pain 1-10 Or Fever >100.7) Qty: 0 0RF Eliquis 5 mg Tablet 2.5 mg PO BID Qty: 40 0RF sennosides-docusate sodium [Stool Softener-Stimulant Laxat] 8.6-50 mg Tablet 2 tab PO BID Qty: 0 0RF calcium carbonate 200 mg calcium (500 mg) Tablet,Chewable 500 mg PO TIDCM Qty: 0 0RF oxycodone 5 mg Tablet 5 mg PO Q4H PRN PRN (Reason: Pain Score 4-10) 3 Days Qty: 12 0RF Continued multivitamin with minerals 1 EACH tablet 1 tab PO DAILY cholecalciferol (vitamin D3) 1,000 UNIT tablet 1,000 unit PO DAILY calcium carbonate-vitamin D3 1 EACH tablet 1 tab PO DAILY potassium chloride 10 MEQ tablet 10 meq PO BIDCM 0RF meclizine 25 mg Tablet 25 mg PO TID PRN PRN (Reason: dizziness) Qty: 21 0RF levothyroxine 75 mcg tablet 75 mcg PO DAILY Qty: 90 3RF furosemide 40 mg tablet 40 mg PO DAILY Qty: 90 3RF metoprolol succinate 25 mg tablet extended release 24 hr 25 mg PO DAILY Qty: 90 3RF Referrals / Follow Up: Ethan Lau MD [Primary Care Provider] - Disposition Disposition (needs filled in before D/C Order can be placed): [facility] Facility Charges/Coding Visit Charges Inpatient E&M: 03193 Disch Hosp >30min
[2023-04-25 10:10] VITALS: O2SAT 90
--- NOTE | 2023-04-25 10:21 | PHA.DC.MR.R ---
Pharmacy [place] Med Reconciliation Pharmacy Service has performed discharge medication reconciliation for this patient. The patient's discharge medication list was reviewed for discrepancies and discrepancies were resolved. Medications at Discharge Home Medications calcium carbonate 600 mg-vitamin D3 20 mcg (800 unit) tablet 1 tab PO DAILY supplement 06/30/19 cholecalciferol (vitamin D3) 25 mcg (1,000 unit) tablet 1,000 unit PO DAILY supplement 06/30/19 multivitamin with minerals 1 tab PO DAILY supplement 06/30/19 potassium chloride 10 mEq tablet,extended release(part/cryst) 10 meq PO BIDCM 08/22/19 meclizine 25 mg tablet 25 mg PO TID PRN PRN dizziness #21 tabs 12/04/21 furosemide 40 mg tablet 40 mg PO DAILY #90 tabs 05/23/22 levothyroxine 75 mcg tablet 75 mcg PO DAILY #90 tabs 05/23/22 metoprolol succinate 25 mg tablet,extended release 24 hr 25 mg PO DAILY #90 tabs 08/28/22 acetaminophen 325 mg tablet 650 mg (2 x 325 mg) PO Q6H PRN PRN Pain 1-10 Or Fever >100.7 #0 tabs 04/25/23 apixaban 5 mg tablet (Eliquis) 2.5 mg (1/2 x 5 mg) PO BID #40 tabs 04/25/23 calcium carbonate 200 mg calcium (500 mg) chewable tablet 500 mg (2.5 x 200 mg calcium (500 mg)) PO TIDCM #0 tabs 04/25/23 oxycodone 5 mg tablet 5 mg PO Q4H PRN PRN Pain Score 4-10 3 days #12 tabs 04/25/23 sennosides 8.6 mg-docusate sodium 50 mg tablet (Stool Softener-Stimulant Laxative) 2 tab PO BID #0 tabs 04/25/23
--- NOTE | 2023-04-25 10:28 | CASEMGMT ---
Social Work Precert has been obtained for pt to go to [facility]. Physician notified and pt is ready for dc today. 7000 exemption form completed in [facility]. SW met with pt and updated that precert has been obtained and dc will be today. Nursing updated and requested covid test be done per [facility] policy. DC senior it assistant updated and to complete dc. Disposition: [facility], skilled level of care under convalescent stay ALEC[facility]
--- NOTE | 2023-04-25 11:09 | CASEMGMT ---
Discharge Planning Discharge orders, signed med list, covid results, and transport time sent to [facility] via [facility]. [facility] will transport patient at 1200. Nursing, SW, patient, and her sister updated. Karlie Rock, Discharge Planning Asst.
[2023-04-25] MEDS: Menthol/Lanolin/Calamine/Znox 113 GM Tube 1 APPLIC TOPICAL (11:12)
[2023-04-25] MEDS: Nystatin Powder 15gm Bottle 1 APPLIC TOPICAL (11:13)
[2023-04-25] MEDS: oxyCODONE 5 MG Tablet PO (11:46)
== END 2023-04-25 12:19 | disposition skilled nursing facility (03) | DRG 522 ==
LOC: ED 18:50 → MS3 21:11
PROVIDERS: Internal Medicine; Orthopaedic Surgery; Emergency Provider Emergency Medicine; PCP Family Medicine; Visit Provider Internal Medicine
PROC: 0SRS0JA Replacement of Left Hip Joint, Femoral Surface with Synthetic Substitute, Uncemented, Open Approach (ICD-10-PCS; CPT 27125; principal; 2023-04-19 07:10)
DX: S72.012A Unspecified intracapsular fracture of left femur, initial encounter for closed fracture (principal); I50.32 Chronic diastolic (congestive) heart failure; I27.21 Secondary pulmonary arterial hypertension; I11.0 Hypertensive heart disease with heart failure; E03.9 Hypothyroidism, unspecified; G47.33 Obstructive sleep apnea (adult) (pediatric); W19.XXXA Unspecified fall, initial encounter; Z95.2 Presence of prosthetic heart valve; R53.1 Weakness; G14 Postpolio syndrome; R09.02 Hypoxemia; Z79.899 Other long term (current) drug therapy; Z79.890 Hormone replacement therapy; Y93.01 Activity, walking, marching and hiking; Y92.59 Other trade areas as the place of occurrence of the external cause
CPT/HCPCS: 36415; 71045; 72170; 73502; 73552; 80048; 80053; 81001; 82306; 82962; 83880; 84443; 85025; 86850; 86900; 86901; 87426; 87428; 87633; 88305; 88311; 93005; 93308; 94668; 97110; 97116; 97162; 97166; 97530; 97535; 99284; C1776; J7030; J7120; Q9957; A4216; C8924; J2405

== ENCOUNTER 2023-06-07 13:30 | Outpatient (RCR) | payer MEDICARE, SELFPAY ==
--- NOTE | 2023-05-15 13:57 | HP.PTEVAL_ITS ---
Patient's Visit Information Visit Information Visit Information: JESSY DAIGLE is a 88 year old F referred to Physical Therapy by Dr. Diana Babin MD with a diagnosis of Left Hemiarthroplasty 04/19/23. Date of Evaluation: 05/15/23 Physical Therapist: Sue Wang DPT Visit Plan Frequency: 2x /Week Duration: 4 Weeks Plan: Left hip hailey arthroplasty 04/19/23 HEP Given IE: Marching, HR/TR, Sit to Stand, Hip Abd, Hip Extn Subjective Subjective: Patient reports that she had just [facility] [place] and she fell- she ended up driving herself home- she ended up going to the ER and saw that she had broken her left femur. April 19- Dr. Hernandez performed hemiarthroplasty. She was at the hospital for 5 days then went to [place] for 2 weeks and has been home since . She lives alone in a single story home with a basement that she normally goes down to- she has a railing but she has not been down since. She has 3 stairs to enter. Fully I prior to the fall including dressing, driving bathing. She was using a cane prior to the fall- when she would go outside but she is now using the walker when she goes out and some in the house- but also the cane. She is back to being able to be indep. It is a step in tub/shower. They go back to see him the . She has tightness of the muscle but she has no pain. She has shooting pains in the lumbar spine but that come and goes. She is more limited by the precautions. Sleep: not disturbed. She works out at 3x a week. PMHx/Meds: no change since she left the hospital. Objective Objective: Posture: Forward head, rounded shoulders Gait: FWW- decreased stance on left LE HR/TR: able with UE A SLS: weight shift no pain ROM: WFL Sensation: WNL to gross touch bilateral Strength: Core: fair, Knee: 4/5 Hip: Flexion: 9 Extn: 26 Abd: 25, Ankle: 5/5 Stairs: asc/desc 8 recip with 2 HR Transfers: sit to stand: UE A Step Over: 8 box with UE A- needs 16 to get into bathtub indep Balance/Special Test Scores Lower Extremity Functional Score: 25 Goals Goal 1:: Patient will report participation in home exercise program activities a minimum of 5 days per week, as adjunct to skilled physical therapy intervention in preparation for independent home management upon discharge. Goal Time Frame: 4-6 Weeks Goal 2:: Patient will ambulate >300 feet with LRD and normalized gait pattern Goal Time Frame: 4-6 Weeks Goal 3:: Patient will asc/desc 8 recip with 1 HR Goal Time Frame: 4-6 Weeks Goal 4:: Patient will report 80% dean Goal Time Frame: 4-6 Weeks Rehabilitation Potential Physical Therapy Diagnosis: Patient presents s/p Left hip hemiarthroplasty 04/19/23 after fall- he has decreased strength in LE, flex, proprioception and muscular endurance leading to abnormal gait and decreased ability to perform ADL's. Rehabilitation Potential: Good Anticipated Interventions Patient/Client Instruction: Educate patient on: Benefits of Fitness Program Therapeutic Exercise to Include: Strength training, Endurance training, Balance training, Coordination, Agility training, Body mechanics, Postural training, Flexibilty training, Gait and locomotor training, Neuromotor development, Dynamic Lumbar Stabilization and Scapular Strength/Stabilization For the Purpose of:: To improve muscle performance and motor function Cryotherapy (ice pack, ice massage): Yes Thermo therapy (hot pack): Yes Text: Thank you for the opportunity to evaluate your patient. For Medicare and Medicare HMO plans, please review the plan of care and approve it. It will need to be FAXED BACK to us at [phone] for Medicare purposes. For Medicare only, by signing this I certify the plan of care. Please let me know if there are questions or concerns regarding this plan of care. Physician Signature: Date:
--- NOTE | 2023-06-18 09:33 | HP.PTREVAL ---
Re-Evaluation Intro: Dr. Diana Babin MD, It has been my pleasure to treat JESSY DAIGLE over the last 7 visits for Left Hemiarthroplasty 04/19/23. Please see the progress note below for an update on the physical therapy plan of care! Subjective Subjective: Pt. reports being 75% better overall, she reports being HEP compliant, but is still having difficulty raising her leg, but reports overall doing much better.. No N/T and no pain currently. Objective Objective/Function: ROM: Pt. has good ROM of her L hip, tightness at end range flexion and extension. MMT: LLE: ankle 5/5 throughout; knee: ext 5-/5, flexion 5-/5. L hip: flexion 4/5, abd 4/5 GAIT: Pt. ambulates well without much issues, but is slow. Pt. uses ambulates with a cane. STAIRS: Pt. is able to negotiate with 2 HR with good reciprocal pattern. TU.8sec. with cane. FGA: no cane Plan Plan Plan: Pt. to follow up with physician. Pt. wants to complete exercises on her own in the gym at this point in time. She is independent with gym exercises in gym currently. Possible DC pending patient following up with physician. I still want her using her cane due to this being much safer. She was fairly adamant about starting exercises on her own. I will leave case open in case any issues arrise. Balance/Gait/Functional tests Balance/Special Test Scores Functional Gait Assessment Score: 15 % Disability: 50.0000 Lower Extremity Functional Score: 25 TUG Test Time Seconds: 19.8 Tug Test: <20 sec.=mostly independent Goals Goals Goal 1:: Patient will report participation in home exercise program activities a minimum of 5 days per week, as adjunct to skilled physical therapy intervention in preparation for independent home management upon discharge. Goal Time Frame: 4-6 Weeks Goal Progress: Goal Met Goal 2:: Patient will ambulate >300 feet with LRD and normalized gait pattern Goal Time Frame: 4-6 Weeks Goal 3:: Patient will asc/desc 8 recip with 1 HR Goal Time Frame: 4-6 Weeks Goal 4:: Patient will report 80% better Goal Time Frame: 4-6 Weeks Goal Progress: Goal Met Anticipated Interventions Anticipated Interventions Patient/Client Instruction: Educate patient on: Benefits of Fitness Program Therapeutic Exercise to Include: Strength training, Endurance training, Balance training, Coordination, Agility training, Body mechanics, Postural training, Flexibilty training, Gait and locomotor training, Neuromotor development, Dynamic Lumbar Stabilization and Scapular Strength/Stabilization For the Purpose of:: To improve muscle performance and motor function Cryotherapy (ice pack, ice massage): Yes Thermo therapy (hot pack): Yes Re-Evaluation Ending Re-evaluation ending: Please do not hesitate to contact me at [phone] by phone or if you have questions or concerns regarding this new plan of care! Sincerely, GAVIN OdellT
--- NOTE | 2023-07-16 09:49 | HP.PTDCSUM ---
Discharge Summary D/C summary: It has been my pleasure to treat JESSY DAIGLE referred by Dr. Diana Babin MD, with the diagnosis of Left Hemiarthroplasty 04/19/23 for a total of 8 visit(s). Discharge Date: 07/12/23 Please see the following information for a summary of their discharge status. Subjective Subjective: Pt. arrives today for a follow up after doing her exercises independently for 1 month. Pt. reports being in gym 2-3 times per week without issues. Pt. reports no longer having any pain. Pain L hip and LE: Pain Intensity (Out of 10): 0 Overall Improvement % Improvement: 95 Objective Objective/Function: Good ROM of her L hip no major restrictions noted. No pain with testing. MMT: Pt. has 5/5 distal LE strength, hip 4/5 throughout. No pain with testing. gait: Pt. ambulates with SPC, but does have methodical pattern. Pt. is KEILY with use of her car. Pt. is now driving without issues. STAIRs: Pt. able to complete with 1 HR with reciprocal pattern. Pt. did have some questions about the knee extension and HS curl machines. We reviewed them. Pt. able to demonstrate back to PT without issues. She did have questions about hip add machine (seated). After talking with her I advised to her avoid this machine for safety. Goals Goal 1:: Patient will report participation in home exercise program activities a minimum of 5 days per week, as adjunct to skilled physical therapy intervention in preparation for independent home management upon discharge. Goal Progress: Goal Met Goal 2:: Patient will ambulate >300 feet with LRD and normalized gait pattern Goal Progress: Goal Met Goal 3:: Patient will asc/desc 8 recip with 1 HR Goal Progress: Goal Met Goal 4:: Patient will report 80% better Goal Progress: Goal Met Plan Plan: Pt. to be DC from PT to gym exercises at this point in time. D/C Information Discharge Comments: Pt. has met all goals and is I with HEP at the gym. She is still using a SPC and advised her to continue to use for safety. Pt. consents. pt. will be DC from PT at this point in time. d/c sentence: If there are questions or concerns regarding this patient's physical therapy, please feel free to call me at [phone]. Thank you for the referral of this patient. Sincerely, Silviano Hiltonos, DPT Balance/Gait/Functional tests Balance/Special Test Scores Functional Gait Assessment Score: 15 % Disability: 50.0000 Lower Extremity Functional Score: 41 TUG Test Time Seconds: 13.2 Tug Test: <20 sec.=mostly independent Improvement % Improvement: 95
== END 2023-06-07 19:00 | disposition home or self-care (01) ==
LOC: PT 13:30
PROVIDERS: PCP Family Medicine; Referring Provider Internal Medicine; Visit Provider Internal Medicine
DX: S72.002D Fracture of unspecified part of neck of left femur, subsequent encounter for closed fracture with routine healing (principal)
CPT/HCPCS: 97110; 97162; 97164

== ENCOUNTER 2024-07-15 12:00 | Outpatient (RCR) | payer MEDICARE, SELFPAY ==
--- NOTE | 2024-06-17 12:38 | HP.PTEVAL ---
Patient's Visit Information Visit Information Visit Information: JESSY DAGILE is a 89 year old F referred to Physical Therapy by Dr. Ethan Lau MD with a diagnosis of Ataxia. Date of Evaluation: 06/17/24 Physical Therapist: PENG Bailey Visit Plan Frequency: 2x /Week Duration: 2 Months Plan: Use a gait belt at all times. Encouraged pt to use AD at all times due to high fall risk. Even suggested a rollator (she says her sister will make her use a rollator at times). 2X/ week for 8 weeks for gait training, balance activities on and off foam, with head turns (starting with static or rollator) and progressing to walking with a cane, turning 180 degrees or bending FW as if to dust etc with HEP Subjective Subjective: In the last year she has broken her L hip, L ankle and also had Polio on the L side when she was 7 years old. She gets dizzy most morning first thing in the morning when she first sits up (it seems to be getting better and she waits for a little bit now). She has no trouble when she is up and around. She also has had L breast CA. If she leans FW to dust or turns to the side she will tend to fall quick that way. She has fallen many times (twice a [place], once at [facility] and three at home). She can get up if she pushes herself up off the floor with things around. That is 6 times in the last year a half. She always uses the cane, not so much inside the house. She has had vestibular issues in the past but this does not feel like it, feels like a balance issue. She is able to go up and down the steps and she has a railing. She lives alone but with her cat. She is just getting over a respiratory bug for the last few weeks. She drives and wants to come back and work out when he gets out. Objective Objective: Gait: Walks with shorter strides, decreased heel to toe gait pattern, no trunk rotation and no head rotation. She walks with even more smaller steps without the cane and more hesitant. Discussed the need for the cane or even a rollator due to poor balance. Sit to stand: uses arms to get up out of a chair. LE MMT: R hip flex 8.9 and L 8.7 R knee ext 17.8 and L 18.5 R knee flex 11.2 and L 11 Seated R hip abd 13.2 and L 11.5 FGA: 8 CATSIB: 75 Balance/Special Test Scores Functional Gait Assessment Score: 8 % Disability: 73.3400 CATSIB Score (Max score 120 seconds): 75 Lower Extremity Functional Score: 45 Goals Goal 1:: I HEP Goal Time Frame: 6-8 Weeks Goal 2:: Increase balance on FGA (score was 8 at eval) to prevent falls Goal Time Frame: 6-8 Weeks Goal 3:: Increase CATSIB score (score was 75 on eval) Goal Time Frame: 6-8 Weeks Goal 4:: Be able to bend down several times in a row or turn to each side without falling over or losing balance Goal Time Frame: 6-8 Weeks Rehabilitation Potential Rehabilitation Potential: Good Anticipated Interventions Patient/Client Instruction: Educate patient on: Condition and Plan of Care For the Purpose of:: To decrease pain, To increase ROM, To improve muscle performance and motor function, To improve ability to perform ADL's, To increase tolerance to activity/condition/position, To improve performance and independence with ADL's, To decrease level of supervision to perform tasks, To improve ability of physical actions for home/community/work/leisure, To improve gait and locomotor functions, To improve endurance, To improve balance, To improve safety with gait, To assume or resume ADL's, To reduce risk of recurrence and To improve safety Therapeutic Exercise to Include: Strength training, Endurance training, Balance training, Coordination, Postural training, Flexibilty training, Gait and locomotor training, Neuromotor development and Active ROM For the Purpose of:: To improve muscle performance and motor function, To improve ability to perform ADL's, To increase tolerance to activity/condition/position, To improve performance and independence with ADL's, To decrease level of supervision to perform tasks, To improve ability of physical actions for home/community/work/leisure, To improve gait and locomotor functions, To improve endurance, To improve balance, To improve safety with gait and To reduce risk of recurrence Functional Training to Include: Gait training For the Purpose of:: To improve gait and locomotor functions and To improve safety with gait Text: Thank you for the opportunity to evaluate your patient. For Medicare and Medicare HMO plans, please review the plan of care and approve it. It will need to be FAXED BACK to us at [phone] for Medicare purposes. For Medicare only, by signing this I certify the plan of care. Please let me know if there are questions or concerns regarding this plan of care. Physician Signature: Date:
--- NOTE | 2024-07-15 13:05 | HP.PTDCSUM ---
Discharge Summary D/C summary: It has been my pleasure to treat JESSY DAIGLE referred by Dr. Ethan Lau MD, with the diagnosis of Ataxia for a total of 9 visit(s). Discharge Date: 07/15/24 Please see the following information for a summary of their discharge status. Subjective Subjective: Pt has moments that she is unsteady but thinks that they are less often. She thinks that the chiropractor helps and getting the wax out of her ears helps too. She is keeping any eye on her carotids. Every once in awhile she will be off balance. Some weeks it is no episodes and some weeks 1-2 times. She does her own groceries and moved all her furniture to get her carpets clean. She feels that she does not need any more therapy. She reports that she is able to pick something up from the floor and not get dizzy. If she turns too fast she might get dizzy so she does not do that. Overall Improvement % Improvement: 100 Objective Objective/Function: FGA 11 CATSIB 88 Encouraged the pt to use cane/AD at all times and to not move fast. Goals Goal 1:: I HEP Goal Progress: Progressing Goal 2:: Increase balance on FGA (score was 8 at eval) to prevent falls Goal Progress: Progressing Goal 3:: Increase CATSIB score (score was 75 on eval) Goal Progress: Progressing Goal 4:: Be able to bend down several times in a row or turn to each side without falling over or losing balance Goal Progress: Progressing Plan Plan: Pt wishes to be discharged at this time. She will come in and do exercises at when the weather breaks. D/C Information Discharge Comments: DC PT to HEP d/c sentence: If there are questions or concerns regarding this patient's physical therapy, please feel free to call me at [phone]. Thank you for the referral of this patient. Sincerely, Maria Esther Winter, MPT Balance/Gait/Functional tests Balance/Special Test Scores Functional Gait Assessment Score: 11 % Disability: 63.3400 CATSIB Score (Max score 120 seconds): 88 Lower Extremity Functional Score: 52 Improvement % Improvement: 100
== END 2024-07-15 14:57 | disposition home or self-care (01) ==
LOC: PT 12:00
PROVIDERS: PCP Family Medicine; Referring Provider Family Medicine; Visit Provider Family Medicine
DX: R27.0 Ataxia, unspecified (principal)
CPT/HCPCS: 97110; 97116; 97162; 97530

== ENCOUNTER 2025-04-24 15:01 | Emergency (ER) | payer MEDICARE, SELFPAY ==
[2025-04-24 15:02] VITALS: BP 140/56; PULSE 92; RESP 16; TEMP 37.2; O2SAT 90
[2025-04-24 15:04] VITALS: BMI 27.6
--- NOTE | 2025-04-24 16:40 | RAD_ITS ---
PROCEDURE: PELVIS 1 OR 2 VIEWS 04/24/2025 REASON FOR EXAM: PAIN fell 2 weeks ago. TECHNIQUE: Procedure Code: RADPEL Modality: DX Procedure: PELVIS 1 OR 2 VIEWS COMPARISON: 06/01/2023 FINDINGS: BONES: No acute fracture or focal osseous lesion. Degenerative changes of the imaged lumbar spine. JOINTS: Partially imaged left hip arthroplasty hardware, with stable appearance. No dislocation. Mild-moderate right hip joint space narrowing. SOFT TISSUES: Vascular calcifications noted. RAD/Pelvis 1 or 2 Views IMPRESSION: NO ACUTE FINDINGS. DEGENERATIVE CHANGES. Reading Location: [id number]
--- NOTE | 2025-04-24 16:40 | RAD_ITS ---
PROCEDURE: TIBIA FIBULA 2 VIEWS 04/24/2025 REASON FOR EXAM: INJURY TECHNIQUE: Procedure Code: RADTF Modality: DX Procedure: TIBIA FIBULA 2 VIEWS Laterality: Right COMPARISON: None available. FINDINGS: Bones: No fracture. No suspicious bone lesion. Joints: Normal alignment. Advanced degenerative changes. Soft tissues: Soft tissues are unremarkable. RAD/Tibia & Fibula 2 Views IMPRESSION: DEGENERATIVE OSTEOARTHROSIS. NO ACUTE FINDINGS. Reading Location[facility]
--- NOTE | 2025-04-24 16:41 | EDS_ITS ---
HPI HPI - Fall History of Present Illness Chief Complaint: Fall Informant: patient and family Narrative Narrative: 89-year-old female presenting to the emergency room 2 weeks following a fall. Patient states that she missed stepped while sidestepping and fell down. She had pain in her left hip but it moved over to the right hip. She notes pain in her lower leg when she ambulates. She denies any back pain. She denies any head injury. Patient notes pain in her heel when she puts pressure on. Family accompanies her. She states nothing is different with her symptomology today. PFSH [facility] Medical History Vertigo Prosthetic aortic valve stenosis Hypokalemia Hypothyroidism Edema Anemia Closed left ankle fracture Debility Decubitus ulcer of ankle, stage 2 Diaphragmatic paralysis Normochromic normocytic anemia Ventricular ectopy Physical debility ANDRY (obstructive sleep apnea) Closed fracture dislocation of left ankle joint Polio Obstructive sleep apnea Vertigo Secondary pulmonary arterial hypertension Obesity Chronic diastolic (congestive) heart failure Essential (primary) hypertension Non-rheumatic aortic stenosis Hypothyroidism Home Medications ?Medication ?Instructions ?Recorded ?Last Taken ?Type multivitamin with minerals 1 tab PO DAILY supplement 0 06/30/19 07/25/19 08:19 History meclizine 25 mg tablet 25 mg PO TID PRN PRN dizzine ss #21 12/04/21 Unknown Rx tabs acetaminophen 325 mg tablet 650 mg (2 x 325 mg) PO Q6H PRN PRN 04/25/23 Unknown Rx Pain 1-10 Or Fever >100.7 #0 tabs vitamins A,C,D-mwvh-qtkeqa 4,296 1 cap PO QAM AND QPM 06/01/23 Unknown History mcg-226 mg-90 mg capsule (PreserVision AREDS) furosemide 40 mg tablet 40 mg PO DAILY #90 tabs 02/18 09/11 Unknown Rx levothyroxine 75 mcg tablet 75 mcg PO DAILY #90 TABLET S 03/03/24 Unknown Rx metoprolol succinate 25 mg 25 mg PO DAILY #90 tabs Unknown Rx tablet,extended release 24 hr carboxymethylcellulose sodium 1 % 1 drp ophthalmic (ey e) QDAY 08/26/24 Unknown History eye liquid gel drops (Refresh Liquigel) potassium chloride 10 mEq 10 meq PO BID #180 TABLETS 1 Unknown Rx tablet,extended release(part/cryst) Allergy/AdvReac Type Severity Reaction Status Date / Time aspirin Allergy made my Verified 04/24/25 15:04 blood too thin hydrocodone (From Vicodin) Allergy feels Verified 04/24/25 15:04 like getting high niacin AdvReac severe Verified 04/24/25 15:04 sweating simvastatin AdvReac muscle Verified 04/24/25 15:04 aches Family History Father Dementia Mother Liver cirrhosis Sister Aortic valve disease Brother Dementia Surgical History History of repair of left hip joint (~03/2023) History of partial mastectomy of left breast History of aortic valve replacement with bioprosthetic valve History of open reduction and internal fixation (ORIF) procedure (07/09/19) History of right and left heart catheterization (09/01/11) Hx of cholecystectomy History of parathyroidectomy History of tonsillectomy and adenoidectomy H/O breast biopsy H/O colonoscopy History of aortic valve replacement with bioprosthetic valve (05/06/12) Social History household members: none Smoking Status: Never smoker alcohol intake: current alcohol intake frequency: holidays/special occasions only substance use type: does not use caffeine: Yes Type: coffee Number of servings: 1 ROS ROS ED Constitutional Constitutional ED: Denies chills, fever(s) or weight loss Eyes Eyes: Denies change in vision or diplopia ENT ENT ED: Denies ear pain, rhinorrhea or sore throat Cardiovascular Cardiovascular: Denies chest pain, orthopnea, palpitations or racing heartbeat Respiratory/Chest Respiratory/Chest: Denies cough, dyspnea or orthopnea Gastrointestinal Gastrointestinal: Denies abdominal pain, diarrhea, nausea or vomiting Genitourinary Genitourinary ED: Denies dysuria, hematuria or urinary frequency Musculoskeletal Musculoskeletal: Reports other Details: Right pelvis right lower extremity pain ; Denies arthralgias, back pain or myalgias Integumentary Denies abscess or rash Neurologic Neurologic: Denies headache(s) or weakness Psychiatric Psychiatric: Denies anxiety, depression, suicidal ideation or suicidal thoughts Endocrine Endocrinology: Denies polydipsia, polyphagia or polyuria Allergic/Immunologic Allergic/Immunologic ED: Denies mouth swelling, tongue swelling or urticaria EXAM Physical Exam Const Vital Signs: 04/24/25 15:02 04/24/25 16:00 04/24/25 17:01 Temperature 98.9 F Temperature Source Oral Pulse Rate 92 90 Respiratory Rate 16 18 Respiratory Effort Normal Blood Pressure 140/56 H 136/58 H Blood Pressure Mean 84 84 Pulse Ox 90 90 Oxygen Delivery Method Room Air Room Air 04/24/25 17:57 Temperature 98 F Temperature Source Pulse Rate 88 Respiratory Rate 16 Respiratory Effort Blood Pressure 138/70 H Blood Pressure Mean 92 Pulse Ox 99 Oxygen Delivery Method Positive well nourished and well developed General Appearance ED: well developed and NAD HEENT Reports normocephalic, head/scalp atraumatic and moist mucous membranes Eyes PERRL and EOMs intact bilaterally Neck no lymphadenopathy, supple and no JVD Resp normal respiratory effort and clear to auscultation bilaterally Cardio regular rate, regular rhythm and no murmurs GI normal to inspection, nondistended, normoactive bowel sounds and non-tender Palpation: soft Back/Spine no CVA tenderness and normal ROM Back/Spine Narrative: No pain with palpation of the low back or thoracic back Extremity Extremity Narrative: Patient reports pain in her heel when I push. Otherwise I am not able to elicit any pain with palpation of the right lower extremity right femur or hip. I do not see any wounds on the feet. No breaks in the skin in between the toes. Skin appears of normal color. There is no ecchymosis. Knee exam appears normal. General Extremety ED: Negative for edema General Extremity: Negative for edema Neuro oriented x3 and CN's II-XII intact bilaterally Sensorium / Orientation: alert Motor Exam: strength 5/5 throughout Psych mental status grossly normal Mood & Affect: Negative for depressed or tearful Skin no rashes or lesions noted and no wounds MDM MDM MDM Narrative Medical decision making narrative: Differential diagnosis includes but not limited to pelvis fracture hip fracture leg fracture foot fracture degenerative arthrosis muscular strain My independent interpretation of the pelvis tib-fib and foot x-rays is no acute fracture. Chronic changes noted. Patient is able to ambulate. Social work is going to discuss getting a medic alert bracelet for the patient at home. Recommend Tylenol for pain. Fall prevention discussed with patient and family. Return if worsening or concerns History & Record Review Discussion w/independent historian: Patient and Family Radiography Diagnostic Testing: Clinical Impression(s) from Imaging Studies Pelvis X-Ray 04/24/25 16:40 IMPRESSION: NO ACUTE FINDINGS. DEGENERATIVE CHANGES. Reading Location: [facility] [place] Tibia/Fibula X-Ray 04/24/25 16:40 IMPRESSION: DEGENERATIVE OSTEOARTHROSIS. NO ACUTE FINDINGS. Reading Location: [facility] Foot X-Ray 04/24/25 16:50 IMPRESSION: NO ACUTE FRACTURE OR DISLOCATION. Reading Location: [facility] [place] Discharge Plan Triage Chief Complaint: Fall ED Provider: Jm Hendricks Dx/Rx/DC Orders Clinical Impression: Fall, Contusion of hip, Acute foot pain Instructions: ED Hip Contusion Prescriptions: No Action PreserVision AREDS 4,296 mcg-226 mg-90 mg capsule 1 cap PO QAM AND QPM carboxymethylcellulose sodium [Refresh Liquigel] 1 % drops, liquid gel 1 drp ophthalmic (eye) QDAY multivitamin with minerals 1 EACH tablet 1 tab PO DAILY meclizine 25 mg Tablet 25 mg PO TID PRN PRN (Reason: dizziness) Qty: 21 0RF acetaminophen 325 mg Tablet 650 mg PO Q6H PRN PRN (Reason: Pain 1-10 Or Fever >100.7) Qty: 0 0RF levothyroxine 75 mcg tablet 75 mcg PO DAILY Qty: 90 3RF furosemide 40 mg tablet 40 mg PO DAILY Qty: 90 3RF metoprolol succinate 25 mg tablet extended release 24 hr 25 mg PO DAILY Qty: 90 3RF potassium chloride 10 mEq tablet,ER particles/crystals 10 meq PO BID Qty: 180 3RF Primary Care Provider: Ethan aLu Referrals: Ethan Lau MD [Primary Care Provider, Medical] - 1-2 Weeks Print Language: Tanzanian Disposition Disposition: Home, Self Care Discharge Date/Time: 04/24/25 17:58
--- NOTE | 2025-04-24 16:50 | RAD_ITS ---
PROCEDURE: FOOT MIN 3 VIEWS 04/24/2025 REASON FOR EXAM: PAIN, fall x 2 weeks. TECHNIQUE: Procedure Code: RADFO Modality: DX Procedure: FOOT MIN 3 VIEWS Laterality: Right COMPARISON: None. FINDINGS: BONES: No acute fracture or focal osseous lesion. JOINTS: No dislocation. The joint spaces are preserved. SOFT TISSUES: No acute abnormality. Soft tissue calcifications along the navicular on the AP view and inferior calcaneus on the lateral view, likely from prior trauma. RAD/Foot min 3 Views IMPRESSION: NO ACUTE FRACTURE OR DISLOCATION. Reading Location: [id number]
[2025-04-24 17:01] VITALS: BP 136/58; PULSE 90; RESP 18; O2SAT 90
--- OUTSIDE RECORDS SUMMARY | 2025-04-24 17:17 | XMS RPT_ITS | CCD ---
Author Organization [facility] Care Team Providers Care Orthopedic Shoe Maker Name Role Phone Jose Antonio Zamora Unavailable Unavailable Jose Antonio Zamora Unavailable Unavailable Dr. Ethan Donald Primary Care Provider Dr. Kenneth Shine Emergency Provider Dr. Ivett Orozco Admit Provider Dr. Ivett Orozco Other Provider Dr. Milton Michelle Attending Provider Dr. Milton Michelle Other Provider Ethan Donald MD Primary Care Provider Dr. Ethan Donald Referring Provider MILLICENT Quesada NP Attending Provider Dr. Boyd Monsalve Attending Provider Dr. Ethan Donald Primary Care Provider Dr. Kenneth Shine Emergency Provider Dr. Ivett Orozco Admit Provider Dr. Ivett Orozco Other Provider Dr. Milton Michelle Attending Provider Dr. Milton Michelle Other Provider Dr. Ethan Donald Referring Provider MILLICENT Quesada NP Attending Provider Dr. Boyd Monsalve Attending Provider Ethan Donald MD Primary Care Provider Dr. Ethan Donald Primary Care Provider ETHAN DONALD Primary Care Unavailable CHINO AMBROSE Referring Unavailable ETHAN DONALD Primary Care Unavailable CHINO AMBROSE Admitting Unavailable CHINO AMBROSE Attending Unavailable CHINO AMBROSE Referring Unavailable Judi, Dr. Long Primary Care Provider Judi, Dr. Long Referring Provider Dipak FRY, MILLICENT Cardoza Attending Provider Judi, Dr. Long Primary Care Provider [place], Dr. Long Referring Provider Dr. Boyd Monsalve Attending Provider Dr. Deon Dickerson Emergency Provider Dr. Koby Ochoa Admit Provider Dr. Koby Ochoa Attending Provider Dr. Koby Ochoa Other Provider Dr. Abdirashid Pinto Other Provider Dr. Sarah Marie Attending Provider Dr. Sarah Marie Other Provider Dr. Abdirashid Pinto Attending Provider Dr. Rene Kim Attending Provider Unavailable Dr. Rene Kim Other Provider Unavailable [place] Ethan WINTERS Primary Care Provider Jamey SAFETY COUNSELOR.PILOT PLANT TECHNICIANLvoe Unavailable Suppan SAFETY COUNSELOR.PILOT PLANT TECHNICIAN, Jenny A Unavailable Judi, Ethan Primary Care Unavailable Judi, Ethan Referring Unavailable Nani Quesada NP Attending Unavailable Judi, Ethan Referring Unavailable Abdirashid Pinto Attending Unavailable Judi, Ethan Primary Care Unavailable Judi, Ethan Attending Unavailable Judi, Ethan Referring Unavailable Judi, Ethan Primary Care Unavailable [place], Ethan Referring Unavailable [place], Ethan Primary Care Unavailable Vaibhav Mason Attending Unavailable Suppan SAFETY COUNSELOR.DANIEL, Jenny A Unavailable [phone] ETHAN DONALD Attending Unavailable ETHAN DONALD Primary Care Unavailable YELENA MERA Attending Unavailable ETHAN DONALD Primary Care Unavailable YELENA MERA Attending Unavailable ETHAN DONALD Primary Care Unavailable YELENA MERA Attending Unavailable ETHAN DONALD Primary Care Unavailable CHINO AMBROSE Referring Unavailable ETHAN DONALD Primary Care Unavailable CHINO AMBROSE Attending Unavailable CHINO AMBROSE Referring Unavailable ETHAN DONALD Primary Care Unavailable ETHAN DONALD Attending Unavailable ETHAN DONALD Primary Care Unavailable ETHAN DONALD Referring Unavailable ETHAN DONALD Primary Care Unavailable Allergies Allergy Classification Reported Allergen(s) Allergy Type Date of Onset Reaction(s) Facility (20 sources) aspirin; Translations: [ASPIRIN] Drug Allergy 1 Other: See Comments [facility] Work Phone: (2 sources) atorvastatin Drug Allergy 5 myalgia [facility] Work Phone: (13 sources) HYDROcodone; Translations: [hydrocodone] Drug Allergy 5 confused,, feels like getting high [facility] Work Phone: (2 sources) rosuvastatin Drug Allergy 5 back pain [facility] Work Phone: (20 sources) Niacin; Translations: [NIACIN] Drug Allergy 1 Other: See Comments [facility] (20 sources) Simvastatin; Translations: [SIMVASTATIN] Drug Allergy 9 muscle aches [facility] Work Phone: (20 sources) Acetaminophen / HYDROcodone; Translations: [HYDROCODONE-ACET AMINOPHEN] Drug Allergy 1 GI Upset [facility] Work Phone: (1 source) Niacin Drug Allergy 5 [facility] (1 source) Simvastatin Drug Allergy 5 [facility] Medications Current Medications Medication Drug Class(es) Dates Sig (Normalized) Sig (Original) acetaminophen 325 mg oral tablet (11 sources) Start: 04-25-2023 take 650 mg by mouth every six hours as needed Acetaminophen Active 650 MG PO EVERY 6 HOURS NEEDED 0 April 25, 2023 12:00am Start: 07-10-2019 End: 09-16-2019 take 1000 mg by mouth every eight hours Acetaminophen Discontinued 1000 MG PO EVERY 8 HOURS July 10, 2019 12:00am September 16, 2019 9:01am amoxicillin 500 mg oral capsule (1 source) Penicillin-class Antibacterial Start: 05-18-2022 End: 05-28-2022 take 1 capsule by mouth three times daily amoxicillin (POLYMOX, AMOXIL) 500 mg capsule Take 1 capsule by mouth three times daily for 10 days. 30 capsule 0 05/18/2022 05/28/2022 Active Comment on above: Take 1 capsule by mo [facility] three times daily for 10 days. amoxicillin 875 mg / clavulanate 125 mg oral tablet (2 sources) Penicillin-class Antibacterial Start: 03-20-2023 End: 03-25-2023 take 1 tablet by mouth twice daily amoxicillin-clavul anate potassium (AUGMENTIN) 875-125 mg per tablet Take 1 tablet by mouth two times a day for 5 days. 10 tablet 0 03/20/2023 03/25/2023 Active Comment on above: Take 1 tablet by [facility] two times a day for 5 days. apixaban 5 mg oral tablet (1 source) Factor Xa Inhibitor Start: 04-25-2023 take 2.5 mg by mouth twice daily Apixaban (Eliquis) 5 mg Tablet Active 2.5 MG PO TWICE A DAY 40 April 25, 2023 12:00am calcium carbonate 500 mg chewable tablet (1 source) Start: 04-25-2023 take 500 mg by mouth three times daily at mealtime Calcium Carbonate Active 500 MG PO 3 TIMES DAILY WITH MEALS 0 April 25, 2023 12:00am sugar-free cholestyramine resin 4000 mg powder for oral suspension (20 sources) Bile Acid Sequestrant Start: 05-13-2021 End: 11-28-2024 cholestyramine light (PREVALITE) 4 gram powder Indications: Chronic diastolic congestive heart failure (HCC) , Diarrhea, unspecified type Take 4 g by mouth as needed. PRN 11/28/2024 Active Comment on above: Take 4 g by mouth on ce daily. docusate sodium 50 mg / sennosides, group home 8.6 mg oral tablet (20 sources) Start: 04-25-2023 take 2 tablets by mouth twice daily Sennosides-Docusat e Sodium (Stool Softener-Stimulant Laxat) 8.6-50 mg Tablet Active 2 TABLET PO TWICE A DAY 0 April 25, 2023 12:00am Start: 07-25-2019 End: 08-22-2019 take 2 tablets by mouth twice daily Sennosides-Docusate Sodium Discontinued 2 TABLET PO TWICE A DAY July 25, 2019 2:35pm August 22, 2019 2:24pm doxycycline hyclate 100 mg oral tablet (3 sources) Tetracycline-class Drug Start: 03-12-2024 End: 03-17-2024 take 1 tablet by mouth twice daily doxycycline (VIBRA-TABS) 100 mg tablet Take 1 tablet by mouth two times a day for 5 days. 10 tablet 03/12/2024 03/17/2024 Active Start: 03-20-2023 End: 03-25-2023 take 1 tablet by mouth twice daily doxycycline monohydrate 100 mg tablet Take 1 tablet by mouth two times a day for 5 days. 10 tablet 0 03/20/2023 03/25/2023 Active Comment on above: Take 1 tablet by gato th two times a day for 5 days. furosemide 40 mg oral tablet (20 sources) Loop Diuretic Start: 11-28-2024 take 1 tablet by mouth once daily furosemide (LASIX) 40 mg tablet Indications: Chronic diastolic congestive heart failure (HCC) Take 1 tablet by mouth once daily. 90 tablet 11/28/2024 Active Start: 08-22-2019 End: 05-23-2022 Furosemide Discontinued 40 M G PO 0600,1400 180 June 30, 2021 8:39am February 20, 2022 2:33pm Start: 06-30-2019 End: 11-28-2024 take 1 tablet by mouth twice daily furosemide (LASIX) 40 mg tablet Indications: Chronic diastolic congestive heart failure (HCC) Take 1 tablet by mouth twice daily. 01/05/2021 11/28/2024 Discontinued Start: 04-09-2018 End: 04-23-2019 take 1 tablet by mouth twice daily Furosemide (Lasix) 40 mg tablet Discontinued 40 MG PO TWICE A DAY 180 April 09, 2018 12:00am April 23, 2019 8:36am Start: 07-15-2012 take 1 tablet by gato th twice daily LASIX 40 MG TABS One tablet by mouth twice daily FUROSEMIDE [id number] Patti Scherer RN Start: 08-14-2011 End: 04-09-2018 take 40 mg by mouth once daily Furosemide Discontinued 40 MG PO DAILY July 02, 2017 11:03am April 09, 2018 2:13pm Start: 08-30-2010 take 1 tablet by gato th once daily LASIX 20 MG TABS One tablet by mouth daily FUROSEMIDE [id number] Karlie Tang RN Comment on above: Take 1 tablet by gato th twice daily. meclizine hydrochloride 25 mg oral tablet (20 sources) Antiemetic Start: 2 End: take 1 tablet by mouth every six hours as needed meclizine (ANTIVERT) 25 mg tab Take 1 tablet by mouth every 6 hours as needed (dizziness). 90 tablet 1 05/27/2024 11/23/2024 Active Start: 12-04-2021 take 25 mg by mouth three times daily as needed Meclizine Active 25 MG PO 3 TIMES DAILY NEEDED December 04, 2021 12:32pm Comment on above: Take 25 mg by mouth three times daily. Take 25 mg by mouth as needed. Take 1 tablet by gato th every 6 hours as needed (dizziness). 24 hr metoprolol succinate 25 mg extended release oral tablet (20 sources) beta-Adrenergic Evelio Start: 08-30-2010 End: 08-28-2022 take 1 tablet by mouth once daily metoprolol succinate ER (TOPROL XL) 25 mg 24 hr tablet Take 1 tablet by mouth once daily. 30 tablet 11 03/06/2016 Active Comment on above: Take 1 tablet by gato th once daily. Multivitamin With Minerals (10 sources) Start: 06-30-2019 take 1 tablet by mouth once daily Multivitamin With Minerals Active 1 TABLET PO DAILY June 30, 2019 12:00am Start: 06-30-2019 take 1 tablet by gato th once daily Multivitamin With Minerals Active 1 TABLET PO DAILY June 30, 2019 1:00am ONE-A-DAY WOMENS FORMULA TAB (20 sources) Start: 03-09-2005 ONE-A-DAY WOME NS FORMULA TAB Take one(1) tablet daily. 0 03/09/2005 Suspended Start: 03-09-2005 ONE-A-DAY WOME NS FORMULA TAB Take one(1) tablet daily. 0 03/09/2005 Active Comment on above: Take one(1) tablet d lynne. oxyCODONE hydrochloride 5 mg oral tablet (11 sources) Opioid Agonist Start: 04-25-2023 take 5 mg by mouth every four hours as needed Oxycodone Active 5 MG PO EVERY 4 HOURS NEEDED 12 3 April 25, 2023 Start: 07-10-2019 End: 07-25-2019 take 5 mg by mouth every four hours as needed Oxycodone Discontinued 5 MG PO EVERY 4 HOURS NEEDED July 10, 2019 12:00am July 25, 2019 9:11am levothyroxine sodium 0.075 mg oral tablet (20 sources) l-Thyroxine Start: 06-30-2019 End: 05-23-2022 take 1 tablet by mouth once daily levothyroxine (SYNTHROID) 75 mcg tablet Indications: Acquired hypothyroidism Take 1 tablet by mouth once daily. 90 tablet 3 02/10/2022 Active Start: 08-30-2010 take 1 tablet by gato th once daily LEVOTHYROXINE SODIUM 50 MCG TABS One tablet by mouth daily LEVOTHYROXINE SODIUM [id number] Julieth Padron Start: 08-30-2010 take 1 tablet by gato th once daily LEVOTHYROXINE SODIUM 75 MCG TABS One tablet by mouth daily LEVOTHYROXINE SODIUM [id number] Boyd Monsalve MD Comment on above: Take 1 tablet by gato th once daily. vit A/vit C/vit E/zinc/copper (PRESERVISION AREDS PO) (2 sources) take 1 tablet by mouth twice daily vit A/vit C/vit E/zinc/copper (PRESERVISION AREDS PO) Take 1 tablet by mouth two times a day. Active Completed/Discontinued Medications Medication Drug Class(es) Dates Sig (Normalized) Sig (Original) acetaminophen 300 mg / codeine phosphate 30 mg oral tablet (4 sources) Opioid Agonist Start: 07-09-2012 End: 04-09-2013 TYLENOL WITH CODEINE #3 300-30 MG TABS 1-2 tablets every 4 hours prn ACETAMINOPHEN-CODEI NE [id number] Karlie Tang RN antiox #8/om3/dha/epa/lut/z eax (PRESERVISION AREDS 2, OMEGA-3, ORAL) (2 sources) End: 05-23-2024 take 1 capsule by mouth twice daily antiox #8/om3/dha/epa/lut/ zeax (PRESERVISION AREDS 2, OMEGA-3, ORAL) Take 1 capsule by mouth two times a day. 05/23/2024 Discontinued take 1 capsule by [facility] twice daily antiox #8/om3/dha/epa/lut/zeax (PRESERVI DICK AREDS 2, OMEGA-3, ORAL) Take 1 capsule by mouth two times a day. Active aspirin 81 mg oral tablet (4 sources) Nonsteroidal Anti-inflammatory Drug Start: 07-09-2012 End: 04-09-2013 take 1 tablet by mouth once daily ASPIRIN 81 MG TABS One tablet by mouth daily ASPIRIN [id number] Karlie Tang RN azelastine hydrochloride 0.137 mg/actuat metered dose nasal spray (10 sources) Histamine-1 Receptor Antagonist Start: 04-03-2016 End: 12-12-2018 Azelastine Discontinued 1 SPRAY NASAL NEEDED April 03, 2016 12:00am December 12, 2018 8:46am bisacodyl 10 mg rectal suppository (10 sources) Stimulant Laxative Start: 07-25-2019 End: 08-22-2019 Bisacodyl Discontinued 10 MG RECTAL .PRN X 1 July 25, 2019 12:00am August 22, 2019 2:23pm calcium carbonate 1250 mg / cholecalciferol 200 unt oral tablet (20 sources) Vitamin D Start: 08-22-2019 End: 09-16-2019 take 1 tablet by mouth once daily Calcium Carbonate-Vitamin D3 Discontinued 1 TABLET PO DAILY@0800 August 21, 2019 11:00pm September 16, 2019 9:01am Start: 06-30-2019 take 1 tablet by [facility] once daily Calcium Carbonate-Vitamin D3 Active 1 TABLET PO DAILY June 30, 2019 12:00am Start: 05-15-2013 End: 02-15-2022 take 1 capsule by mouth once daily calcium carbonate-vitamin D3 (CALTRATE-600 + D VIT D3, 800,) 600 mg(1,500mg) -800 unit tab Take 1 capsule by mouth once daily. 0 05/15/2013 02/15/2022 Discontinued Comment on above: Take 1 capsule by [facility] once daily. calcium carbonate / vitamin D (2 sources) Start: 08-30-2010 take 1 tablet by mouth once daily CALTRATE 600+D 600-400 MG-UNIT TABS One tablet by mouth daily CALCIUM CARBONATE-VITAMIN D [id number] Julieth Padron Calcium Carbonate / vitamin D3 (20 sources) End: 11-20-2023 calcium carbonate/vitamin D3 (CALTRATE 600 PLUS D ORAL) Take by mouth. 11/20/2023 Discontinued End: 11-20-2023 calcium carbonate/vitamin D3 (CALTRATE 600 PLUS D ORAL) Take by mouth. 0 11/20/2023 Discontinued calcium carbonat e/vitamin D3 (CALTRATE 600 PLUS D ORAL) Take by mouth. 0 Suspended calcium carbonat e/vitamin D3 (CALTRATE 600 PLUS D ORAL) Take by mouth. 0 Active Comment on above: Take by mouth. cholecalciferol 0.025 mg oral tablet (20 sources) Vitamin D Start: 0 End: 0 take 1000 [IU] by mouth once daily Cholecalciferol (Vitamin D3) Discontinued 1000 UNIT PO DAILY August 21, 2019 11:00pm September 16, 2019 9:02am Start: 02-28-2016 End: 02-15-2022 take 1 capsule by mouth once daily Cholecalciferol, Vitamin D3, 1,000 unit cap Take 1 capsule by mouth once daily. 0 02/28/2016 02/15/2022 Discontinued Comment on above: Take 1 capsule by [facility] once daily. docusate sodium 100 mg oral capsule (4 sources) Start: 07-09-19 13 End: 04-09-20 13 take 1 tablet by mouth once daily COLACE 100 MG CAPS One tablet by mouth daily DOCUSATE SODIUM [id number] Boyd Monsalve MD 0.4 ml enoxaparin sodium 100 mg/ml prefilled syringe (10 sources) Low Molecular Weight Heparin Start: 07-10-19 20 End: 08-22-19 20 inject 40 mg by subcutaneous injection once daily Enoxaparin Discontinued 40 MG SQ DAILY July 10, 2019 12:00am August 22, 2019 2:24pm fish oil (4 sources) Start: 08-31-19 11 take 1 tablet by mouth twice daily FISH OIL CAPS One tablet by mouth twice daily OMEGA-3 FATTY ACIDS CAPS [id number] Boyd Monsalve MD Start: 08-30-2010 take 2 capsules by m outh in the morning, then take 1 capsule by mouth in the evening FISH OIL CAPS 2 capsules in the AM & 1 in the evening by mouth OMEGA-3 FATTY ACIDS CAPS [id number] Julieth Padron fluticasone propionate 0.05 mg/actuat metered dose nasal spray (8 sources) Corticosteroid Start: 03-28-2012 End: 04-08-2015 FLUTICASONE PROPIONATE 50 MCG/ACT SUSP (0.05mg/inh) 1 spray each nostril once a day as needed FLUTICASONE PROPIONATE [id number] Boyd Monsalve MD hydrALAZINE hydrochloride 25 mg oral tablet (4 sources) Arteriolar Vasodilator Start: 07-09-2012 End: 07-15-2012 take 1 tablet by mouth three times daily HYDRALAZINE HCL 25 MG TABS One tablet by mouth three times daily HYDRALAZINE HCL [id number] Boyd Monsalve MD losartan potassium 25 mg oral tablet (8 sources) Angiotensin 2 Receptor Evelio Start: 08-01-2012 End: 08-22-2012 take 1 tablet by mouth once daily LOSARTAN POTASSIUM 25 MG TABS One tablet by mouth daily LOSARTAN POTASSIUM [id number] Brandie Sauceda PA-C Start: 07-09-2012 End: 07-19-2012 take 1 tablet by mouth once daily LOSARTAN POTASSIUM 25 MG TABS One tablet by mouth daily LOSARTAN POTASSIUM [id number] Boyd Monsalve MD magnesium hydroxide 80 mg/ml oral suspension (10 sources) Start: 07-25-2019 End: 08-22-2019 Magnesium Hydroxide Discontinued 30 ML PO .PRN X 1 July 25, 2019 12:00am August 22, 2019 2:24pm menthol 0.0044 mg/mg / zinc oxide 0.206 mg/mg topical ointment (20 sources) Start: 07-25-2019 End: 09-16-2019 Menthol-Zinc Oxide Discontinued 1 APPLIC TOPICAL TWICE A DAY July 25, 2019 2:35pm September 16, 2019 9:03am MARIANO BUTTOCKS METHYLCELLULOSE (LAXATIVE) TABS (2 sources) Start: 08-30-2010 CITRUCEL TABS 2g/19g, daily as directed METHYLCELLULOSE (LAXATIVE) TABS [id number] Julieth Padron MULTIPLE VITAMIN (2 sources) Start: 08-30-2010 take 1 tablet by mouth once daily MULTIVITAMINS TABS One tablet by mouth daily MULTIPLE VITAMIN [id number] Julieth Padron nystatin 100 unt/mg topical powder (20 sources) Polyene Antifungal Start: 07-25-2019 End: 09-16-2019 Nystatin Discontinued 1 APPLIC TOPICAL TWICE A DAY July 25, 2019 2:35pm September 16, 2019 9:03am UNDER MARIANO BREASTS Natalia 7-Tbh-Wlw-Fish Oil (14 sources) Start: 04-27-2022 End: 04-17-2023 take 1 capsule by mouth once daily Natalia 1-Ksm-Etw-Fish Oil Discontinued 1 CAP PO DAILY April 27, 2022 1:49pm April 17, 2023 6:28pm Start: 04-27-2022 take 1 capsule by mo uth once daily Natalia 5-Dpt-Osh-Fish Oil Active 1 CAP PO DAILY April 27, 2022 2:49pm Start: 04-27-2022 take 1 capsule by mo uth once daily Natalia 2-Ley-Etv-Fish Oil Active 1 CAP PO DAILY April 27, 2022 1:49pm Start: 06-30-2019 End: 04-27-2022 take 2 tablets by mouth once daily Natalia 3-Nhz-Wmm-Fish Oil Discontinued 2 TABLET PO DAILY June 30, 2019 1:00am April 27, 2022 2:49pm Start: 06-30-2019 End: 04-27-2022 take 2 tablets by mouth once daily Natalia 9-Gfc-Isk-Fish Oil Discontinued 2 TABLET PO DAILY June 30, 2019 12:00am April 27, 2022 1:49pm Start: 06-30-2019 take 2 tablets by mo uth once daily Natalia 5-Lrf-Hga-Fish Oil Active 2 TABLET PO DAILY June 30, 2019 12:00am Start: 06-30-2019 take 2 tablets by mo uth once daily Natalia 8-Fmz-Unq-Fish Oil Active 2 TABLET PO DAILY June 30, 2019 1:00am Natalia-3 Fatty Acids, FISH OIL, (FISH OIL) 360-1,200 mg cap (20 sources) Start: 05-15-2013 End: 11-20-2023 take 1 capsule by mouth twice daily at mealtime Natalia-3 Fatty Acids, FISH OIL, (FISH OIL) 360-1,200 mg cap Take 1 capsule by mouth twice daily with meals. 05/15/2013 11/20/2023 Discontinued Start: 05-15-2013 End: 11-20-2023 take 1 capsule by mouth twice daily at mealtime Natalia-3 Fatty Acids, FISH OIL, (FISH OIL) 360-1,200 mg cap Take 1 capsule by mouth twice daily with meals. 0 05/15/2013 11/20/2023 Discontinued Start: 05-15-2013 take 1 capsule by mo uth twice daily at mealtime Natalia-3 Fatty Acids, FISH OIL, (FISH OIL) 360-1,200 mg cap Take 1 capsule by mouth twice daily with meals. 0 05/15/2013 Suspended Start: 05-15-2013 take 1 capsule by mo uth twice daily at mealtime Natalia-3 Fatty Acids, FISH OIL, (FISH OIL) 360-1,200 mg cap Take 1 capsule by mouth twice daily with meals. 0 05/15/2013 Active Comment on above: Take 1 capsule by mo uth twice daily with meals. omeprazole 20 mg delayed release oral capsule (4 sources) Proton Pump Inhibitor Start: 08-31-19 11 End: 08-09-19 12 take 2 tablets by mouth once daily OMEPRAZOLE 20 MG CPDR Two tablets by mouth daily OMEPRAZOLE [id number] Boyd Monsalve MD ondansetron 4 mg disintegrating oral tablet (10 sources) Serotonin-3 Receptor Antagonist Start: 04-03-20 16 End: 12-13-19 19 take 4 mg by mouth every eight hours as needed Ondansetron Discontinued 4 MG PO EVERY 8 HOURS NEEDED April 03, 2016 12:00am December 12, 2018 8:46am pantoprazole 40 mg delayed release oral tablet (6 sources) Proton Pump Inhibitor Start: 07-15-19 13 End: 08-23-19 13 take 1 tablet by mouth once daily PROTONIX 40 MG TBEC One tablet by mouth daily PANTOPRAZOLE SODIUM [id number] Brandie Sauceda PA-C Start: 07-09-2012 take 1 tablet by gato th once daily PROTONIX 40 MG SOLR One tablet by mouth daily PANTOPRAZOLE SODIUM [id number] Boyd Monsalve MD microencapsulated potassium chloride 10 meq extended release oral tablet (20 sources) Start: 09-07-2023 End: 05-23-2024 KLOR-CON M10 10 mEq tablet Take 10 mEq by mouth two times a day. 09/07/2023 05/23/2024 Discontinued Start: 06-30-2019 End: 08-14-2023 take 1 tablet by mouth twice daily potassium chloride ER (KLOR-CON M10) 10 mEq tablet Indications: Hypokalemia Take 1 tablet by mouth two times a day. 180 tablet 1 02/15/2023 08/14/2023 Start: 04-03-2016 End: 05-23-2018 take 10 mEq by mouth once daily Potassium Chloride Dis continued 10 MEQ PO DAILY April 03, 2016 12:00am May 23, 2018 12:58pm Start: 10-03-2012 take 1 tablet by gato th once daily KLOR-CON 10 CR-TABS One tablet by mouth daily POTASSIUM CHLORIDE CR-TABS [id number] Brandie Sauceda PA-C take 10 mEq by mouth twice daily potassium chloride (KLOR-CON 10 ORAL) Take 10 mEq by mouth two times a day. Active Comment on above: Take 1 tablet by gato th twice daily. Take 1 tablet by gato th two times a day. psyllium (2 sources) Start: 11-21-2011 METAMUCIL CAPS take as directed PSYLLIUM CAPS [id number] Boyd Monsalve MD Psyllium Seed (Sugar) (10 sources) Start: 04-03-2016 End: 06-24-2019 take 1 dose by mouth once daily Psyllium Seed (Sugar) Discontinued 1 DOSE PO DAILY April 03, 2016 12:00am June 24, 2019 11:02am Start: 04-03-2016 End: 06-24-2019 take 1 dose by mouth once daily Psyllium Seed (Sugar) Discontinued 1 DOSE PO DAILY April 03, 2016 1:00am June 24, 2019 12:02pm vitamin d 1000 unt oral tablet (2 sources) Start: 08-30-2010 take 1 tablet by mouth once daily VITAMIN D 1000 UNIT TABS One tablet by mouth daily CHOLECALCIFEROL [id number] Boyd Monsalve MD Problems Active Problems Problem Classification Problem Date Documented Da te Episodic/Chronic Cancer of breast (20 sources) 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; Translations: [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] Onset: 05-03-2022 Chronic Cardiac dysrhythmias (20 sources) Ventricular arrhythmia; Translations: [Ventricular premature depolarization] Onset: 02-14-2022 02-14-2022 Chronic Congestive heart failure; nonhypertensive (20 sources) Chronic diastolic heart failure; Translations: [Chronic diastolic (congestive) heart failure] Onset: 01-05-2021 01-05-2021 Chronic Diabetes mellitus without complication (3 sources) Hyperglycemia; Translations: [Hyperglycemia, unspecified] Onset: 11-28-2024 02-12-2023 Episodic Diseases of white blood cells (4 sources) Leukocytosis; Translations: [Elevated white blood cell count, unspecified] 04-17-2023 Chronic Disorders of lipid metabolism (20 sources) Hyperlipidemia; Translations: [Hyperlipidemia, unspecified] Onset: 02-28-2016 02-28-2016 Chronic E Codes: Fall (4 sources) Fall on same level from slipping, tripping or stumbling ; Translations: [Fall on same level from slipping, tripping and stumbling without subsequent striking against object, initial encounter] 04-17-2023 Episodic Essential hypertension (20 sources) Essential hypertension; Translations: [Essential (primary) hypertension] Onset: 02-28-2016 02-28-2016 Chronic Fluid and electrolyte disorders (2 sources) Hypokalemia; Translations: [Hypokalemia] Episodic Fracture of neck of femur (hip) (6 sources) Fracture of bone of hip region; Translations: [Fracture of unspecified part of neck of left femur, initial encounter for closed fracture] 04-17-2023 Episodic Heart valve disorders (20 sources) Heart valve replaced by other means; Translations: [Aortic valve disorder] Onset: 08-19-2010 Resolved: 12-05-2017 08-22-2012 Chronic Nonmalignant breast conditions (6 sources) Lump in left breast; Translations: [Unspecified lump in the left breast, unspecified quadrant] Episodic Nutritional deficiencies (2 sources) Vitamin D deficiency; Translations: [Vitamin D deficiency, unspecified] Chronic Osteoporosis (20 sources) Osteoporosis; Translations: [Age-related osteoporosis without current pathological fracture] Onset: 04-01-2007 01-05-2021 Chronic Other and unspecified benign neoplasm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 ####[facility] LABCLIA [id number] [place] [address] [place] Creatinine and Glomerular filtration rate.predicted panel (S/P/Bld) 82 mL/min/1.73m??? Normal >=60 [facility] Comment on above: Order Comment: Jyoti martin Type: BLOOD SPECIMENOrdering Facility: [facility] Address: [address] [place] [address] Result Comment: Megan mated Glomerular Filtration Rate (eGFR) is calculated using the 2020 CKD-EPI creatinine equation. This equation utilizes serum creatinine, sex, and age as parameters. The creatinine assay has traceable calibration to isotope dilution-mass spectrometry. Refer to KDIGO guidelines for clinical interpretation. In patients with unstable renal function, e.g. those with acute kidney injury, the eGFR may not accurately reflect actual GFR. Performed By: #### 2 4323-8, 3016-3 ####[facility] LABCLIA [id number] [place] [address] [place] Glucose [Mass/Vol] 141 mg/dL High 74-99 [facility] Comment on above: Order Comment: Jyoti martin Type: BLOOD SPECIMENOrdering Facility: [facility] Address: [address] [place] [address] Result Comment: The [place] Diabetes Association (ADA) provides guidance for cutoff values for fasting glucose and random glucose. The ADA defines fasting as no caloric intake for at least 8 hours. Fasting plasma glucose results between 100 to 125 mg/dL indicate increased risk for diabetes (prediabetes). Fasting plasma glucose results greater than or equal to 126 mg/dL meet the criteria for diagnosis of diabetes. In the absence of unequivocal hyperglycemia, results should be confirmed by repeat testing. In a patient with classic symptoms of hyperglycemia or hyperglycemic crisis, random plasma glucose results greater than or equal to 200 mg/dL meet the criteria for diagnosis of diabetes. Reference: Standards of Medical Care in Diabetes 2016, [place] Diabetes Association. Diabetes Care. 2016.39(Suppl 1). Performed By: #### 2 4323-8, 3016-3 ####[facility] LABIA [id number] [place] [id number] [place] Potassium [Moles/Vol] 4.2 mmol/L Normal 3.7-5.1 [facility] Comment on above: Order Comment: Speci men Type: BLOOD SPECIMENOrdering Facility: [facility] Address: [address] [place] [address] Performed By: #### 2 4323-8, 3015-3 ####[facility] LABCLIA [id number] [facility] [place] [id number] [place] Protein [Mass/Vol] 7.0 g/dL Normal 6.3-8.0 [facility] Comment on above: Order Comment: Speci men Type: BLOOD SPECIMENOrdering Facility: [facility] Address: [address] [place] [address] Performed By: #### 2 4323-8, 3 ####[facility] LABCLIA [id number] [place] [id number] [place] Sodium [Moles/Vol] 141 mmol/L Normal 136-144 [facility] Comment on above: Order Comment: Speci men Type: BLOOD SPECIMENOrdering Facility: [facility] Address: [address] [place] [address] Performed By: #### 2 4323-8, 3 ####[facility] LABCLIA [id number] [facility] [place] [id number] [place] Urea nitrogen [Mass/Vol] 14 mg/dL Normal 7-21 [facility] Comment on above: Order Comment: Speci men Type: BLOOD SPECIMENOrdering Facility: [facility] Address: [address] [place] [address] Performed By: #### 2 4323-8, 3015-3 ####[facility] LABCLIA [id number] [facility] [address] [address] [place] HbA1c (Bld)on 11-25-2024 Average glucose Estimated from glycated hemoglobin (Bld) [Mass/Vol] 111 mg/dL Normal [facility] Comment on above: Order Comment: Speci men Type: BLOOD SPECIMENOrdering Facility: [facility] Address: [address] [id number] Result Comment: eAG: (Estimated average glucose) is a calculated value from HgbA1c and is field representatives director of the average blood glucose level in the last 2-3 month period. Performed By: #### 5 5454-3, 64224-6 ####[facility] LABCLIA [id number] [address] [address] [place] HbA1c (Bld) [Mass fraction] 5.5 % Normal 4.3-5.6 [facility] Comment on above: Order Comment: Jyoti martin Type: BLOOD SPECIMENOrdering Facility: [facility] Address: [address] [place] [address] Result Comment: [place] Diabetes Association guidelines indicate that patients with HgbA1c in the range 5.7-6.4% are at increased risk for development of diabetes, and intervention by lifestyle modification may be beneficial. HgbA1c greater or equal to 6.5% is considered diagnostic of diabetes. Performed By: #### 5 5454-3, 79518-5 ####[facility] LABCLIA [id number] [address] [address] [place] TSH SerPl-aCncon 11-25-2024 TSH Qn 2.110 m[IU]/L Normal 0.270-4.200 [facility] Comment on above: Order Comment: Jyoti martin Type: BLOOD SPECIMENOrdering Facility: [facility] Address: [address] [place] [address] Performed By: #### 2 4323-8, 3016-3 ####[facility] LABCLIA [id number] [address] [address] [place] Cardiology Visit Reporton Cardiology Visit Report [facility] [address] [place], [place] [address] OFFICE VISIT Date of Service: 08/26/24 MR#: [id number] Acct: [id number] Name: SYDNEY DAIGLE Rep #: [id number] : 1935 Provider: FRANCESCO Stanely Age/Sex: 89/F Location: [facility] [place] Status: Signed HPI HPI History of Present Illness Details: Sydney Daigle is an 89-year-old female who presents to the office today for follow-up for monitoring of cardiovascular disease. Patient has a history of aortic valve replacement with a 21 mm [facility] [employer] [facility] pericardial bioprosthesis done in April 2012. Patient has a history of diastolic heart failure and hypertension. Patient was diagnosed with breast cancer and underwent partial mastectomy on 05/03/2022 and elected not to have chemotherapy. Since last seen, approximately 9 months ago, patient reports well. Patient reports dizziness and balance problems in which she explains as suddenly feeling like she is going to fall. Patient has had this in the past when she was diagnosed with BPPV. She gets this symptom when she leans forward, turns too fast, or takes a step backwards. Patient does have appointment with ENT later this month. Patient with no other concerns at this time. Further ROS below. Intake Vital Signs 11/23/23 11:15 08/26/24 13:22 Height 5 ft 2 in 5 ft 2 in Weight: 156 lb 147 lb BMI 28.5 26.9 BP 151/62 H 123/67 H Blood Pressure Location Lt brachial Lt brachial Position Sitting Sitting Respiration 16 14 Pulse 55 L 70 Pulse Source Monitor Monitor Pulse Oximetry (%) 90 Oxygen Delivery Method room air Intake Visit Reasons: 9 M FU Floor Grinder Required: No Accompanied by: Sister Is patient in pain?: No Allergies aspirin Allergy (Verified 08/26/24 13:48) made my blood too thin hydrocodone (From Vicodin) Allergy (Verified 08/26/24 13:48) feels like getting high niacin Adverse Reaction (Verified 08/26/24 13:48) severe sweating simvastatin Adverse Reaction (Verified 08/26/24 13:48) muscle aches Medications ???Medication ???Instructions ???Recorded ???Confirmed ???Type multivitamin with minerals 1 tab PO DAILY supplement 06/30/19 08/26/24 History meclizine 25 mg tablet 25 mg PO TID PRN PRN dizziness #21 12/04/21 08/26/24 Rx tabs acetaminophen 325 mg tablet 650 mg (2 x 325 mg) PO Q6H PRN PRN 04/25/23 08/26/24 Rx Pain 1-10 Or Fever >100.7 #0 tabs vitamins A,C,J-nqig-vdmjwn 4,296 1 cap PO QAM AND QPM 06/01/23 0401/12 History mcg-226 mg-90 mg capsule (PreserVision AREDS) furosemide 40 mg tablet 40 mg PO DAILY #90 tabs 03/03/24 0 08/26/24 Rx levothyroxine 75 mcg tablet 75 mcg PO DAILY #90 TABLETS 08/26/24 Rx metoprolol succinate 25 mg 25 mg PO DAILY #90 tabs 06/19/24 0 08/26/24 Rx tablet,extended release 24 hr potassium chloride 10 mEq 10 meq PO BIDCM #90 tabs 08/25/24 08/26/24 Rx tablet,extended release(part/cryst) carboxymethylcellulose sodium 1 % 1 drp ophthalmic (eye) QDAY 08/2608/26/24 History eye liquid gel drops (Refresh Liquigel) Ejection fraction %: 55 Have you fallen in the past year?: Yes Nurse's Note: c/o dizziness, reports upcoming appt with ENT. [facility] Medical History Vertigo Prosthetic aortic valve stenosis Hypokalemia Hypothyroidism Edema Anemia Closed left ankle fracture Debility Decubitus ulcer of ankle, stage 2 Diaphragmatic paralysis Normochromic normocytic anemia Ventricular ectopy Physical debility ANDRY (obstructive sleep apnea) Closed fracture dislocation of left ankle joint Polio Obstructive sleep apnea Vertigo Secondary pulmonary arterial hypertension Obesity Chronic diastolic (congestive) heart failure Essential (primary) hypertension Non-rheumatic aortic stenosis Hypothyroidism Surgical History History of repair of left hip joint ( 03/2023) History of partial mastectomy of left breast History of aortic valve replacement with bioprosthetic valve History of open reduction and internal fixation (ORIF) procedure (07/09/19) History of right and left heart catheterization (09/01/11) Hx of cholecystectomy History of parathyroidectomy History of tonsillectomy and adenoidectomy H/O breast biopsy H/O colonoscopy History of aortic valve replacement with bioprosthetic valve (05/06/12) Family History Father Dementia Mother Liver cirrhosis Sister Aortic valve disease Brother Dementia Social History household members: none Smoking Status: Never smoker alcohol intake: current alcohol intake frequency: holidays/special occasions only substance use type: (more content not included)... Normal [facility] PT D/C Summary (1)on 025 PT D/C Summary (1) [facility] Physical [facility] [address] [place] [address] / REHABILITATION SERVICES DISCHARGE SUMMARY MR#: [id number] Acct: [id number] Name: SYDNEY DAIGLE Rep #: [id number] : 1935 89 From: Maria Esther Winter [facility] Referring Dr.: Dr. Ethan Donald MD Status: REG [facility] Insurance: [facility] SELF PAY INSURANCE Discharge Summary D/C summary: It has been my pleasure to treat SYDNEY DAIGLE referred by Dr. Ethan Donald MD, with the diagnosis of Ataxia for a total of 9 visit(s). Discharge Date: 07/15/24 Please see the following information for a summary of their discharge status. Subjective Subjective: Pt has moments that she is unsteady but thinks that they are less often. She thinks that the chiropractor helps and getting the wax out of her ears helps too. She is keeping any eye on her carotids. Every once in awhile she will be off balance. Some weeks it is no episodes and some weeks 1-2 times. She does her own groceries and moved all her furniture to get her carpets clean. She feels that she does not need any more therapy. She reports that she is able to pick something up from the floor and not get dizzy. If she turns too fast she might get dizzy so she does not do that. Overall Improvement % Improvement: 100 Objective Objective/Function: FGA 11 CATSIB 88 Encouraged the pt to use cane/AD at all times and to not move fast. Goals Goal 1:: I HEP Goal Progress: Progressing Goal 2:: Increase balance on FGA (score was 8 at eval) to prevent falls Goal Progress: Progressing Goal 3:: Increase CATSIB score (score was 75 on eval) Goal Progress: Progressing Goal 4:: Be able to bend down several times in a row or turn to each side without falling over or losing balance Goal Progress: Progressing Plan Plan: Pt wishes to be discharged at this time. She will come in and do exercises at when the weather breaks. D/C Information Discharge Comments: DC PT to [facility] d/c sentence: If there are questions or concerns regarding this patient's physical therapy, please feel free to call me at [phone]. Thank you for the referral of this patient. Sincerely, PENG Bailey Balance/Gait/Functional tests Balance/Special Test Scores Functional Gait Assessment Score: 11 % Disability: 63.3400 CATSIB Score (Max score 120 seconds): 88 Lower Extremity Functional Score: 52 Improvement % Improvement: 100 07/15/24 1305 CC: Dr. Ethan Donald MD Signed Normal [facility] Inital Evaluation (1) - PTon 06-17-2024 Inital Evaluation (1) - PT [facility] [address] [place] [address] [address] [place] [id number] / REHABILITATION SERVICES INITIAL EVALUATION MR#: [id number] Acct: [id number] Name: SYDNEY DAIGLE Rep #: [id number] : 1935 89 From: Maria Esther KHOURY Referring Dr.: Dr. Ethan Donald MD Status: REG R Insurance: [facility] SELF PAY INSURANCE Patient's Visit Information Visit Information Visit Information: SYDNEY DAIGLE is a 89 year old F referred to Physical Therapy by Dr. Ethan Donald MD with a diagnosis of Ataxia. Date of Evaluation: 06/17/24 Physical Therapist: PENG Bailey Visit Plan Frequency: 2x /Week Duration: 2 Months Plan: Use a gait belt at all times. Encouraged pt to use AD at all times due to high fall risk. Even suggested a rollator (she says her sister will make her use a rollator at times). 2X/ week for 8 weeks for gait training, balance activities on and off foam, with head turns (starting with static or rollator) and progressing to walking with a cane, turning 180 degrees or bending FW as if to dust etc with HEP Subjective Subjective: In the last year she has broken her L hip, L ankle and also had Polio on the L side when she was 7 years old. She gets dizzy most morning first thing in the morning when she first sits up (it seems to be getting better and she waits for a little bit now). She has no trouble when she is up and around. She also has had L breast CA. If she leans FW to dust or turns to the side she will tend to fall quick that way. She has fallen many times (twice a [facility], once at [facility] and three at home). She can get up if she pushes herself up off the floor with things around. That is 6 times in the last year a half. She always uses the cane, not so much inside the house. She has had vestibular issues in the past but this does not feel like it, feels like a balance issue. She is able to go up and down the steps and she has a railing. She lives alone but with her cat. She is just getting over a respiratory bug for the last few weeks. She drives and wants to come back and work out M-W-F when he gets out. Objective Objective: Gait: Walks with shorter strides, decreased heel to toe gait pattern, no trunk rotation and no head rotation. She walks with even more smaller steps without the cane and more hesitant. Discussed the need for the cane or even a rollator due to poor balance. Sit to stand: uses arms to get up out of a chair. LE MMT: R hip flex 8.9 and L 8.7 R knee ext 17.8 and L 18.5 R knee flex 11.2 and L 11 Seated R hip abd 13.2 and L 11.5 FGA: 8 CATSIB: 75 Balance/Special Test Scores Functional Gait Assessment Score: 8 % Disability: 73.3400 CATSIB Score (Max score 120 seconds): 75 Lower Extremity Functional Score: 45 Goals Goal 1:: I HEP Goal Time Frame: 6-8 Weeks Goal 2:: Increase balance on FGA (score was 8 at eval) to prevent falls Goal Time Frame: 6-8 Weeks Goal 3:: Increase CATSIB score (score was 75 on eval) Goal Time Frame: 6-8 Weeks Goal 4:: Be able to bend down several times in a row or turn to each side without falling over or losing balance Goal Time Frame: 6-8 Weeks Rehabilitation Potential Rehabilitation Potential: Good Anticipated Interventions Patient/Client Instruction: Educate patient on: Condition and Plan of Care For the Purpose of:: To decrease pain, To increase ROM, To improve muscle performance and motor function, To improve ability to perform ADL's, To increase tolerance to activity/condition/posi tion, To improve performance and independence with ADL's, To decrease level of supervision to perform tasks, To improve ability of physical actions for home/community/work/lei sure, To improve gait and locomotor functions, To improve endurance, To improve balance, To improve safety with gait, To assume or resume ADL's, To reduce risk of recurrence and To improve safety Therapeutic Exercise to Include: Strength training, Endurance training, Balance training, Coordination, Postural training, Flexibilty training, Gait and locomotor training, Neuromotor development and Active ROM For the Purpose of:: To improve muscle performance and motor function, To improve ability to perform ADL's, To increase tolerance to activity/condition/posi tion, To improve performance and independence with ADL's, To decrease level of supervision to perform tasks, To improve ability of physical actions for home/community/work/lei sure, To improve gait and locomotor functions, To improve endurance, To improve balance, To improve safety with gait and To reduce risk of recurrence Functional Training to Include: Gait training For the Purpose of:: To improve gait and locomotor functions and To improve safety with gait Text: Thank you for the opportunity to evaluate your patient. For Medicare and Medicare HMO plans, please review the p (more content not included)... [facility] CNOVon 05-27-2024 CNOV Office Visit (FAMPWS ) SYDNEY DAIGLE ([id number]) 1935 F Date Time Provider Department 05/27/24 2:00 PM ETHAN DONALD During your visit today, we recorded the following information about you: Pulse Blood pressure Weight Height 68/minute 106/64 71.9 kg 1.575 m Ethan Donald MD 05/27/2024 2:19 PM Signed Patient presents with: 6 Month Exam HPI: Patient presents today for office visit for routine 6 month follow up. Having some balance issues. Has had multiple falls. Ambulates with cane when she's out. Bumped her head and elbow with worst fall. Typically just some bruising. Again, suggested physical therapy. She is reluctant but discussed risks and benefits. No new focal neuro issues. Some recent bouts with vertigo.not new Takes meclizine prn. Needs refill. Helps. THYROID: Continues Levothyroxine 75 mcg daily. No energy, hair or skin changes. No weight change. Denies temp intolerances. Thyroid testing is stable. Sees Cardiology. HTN: Continues on Metoprolol 25 mg daily. Not monitoring BP. Denies chest pain and shortness of breath. Denies headaches. No new or worsening dizziness. Denies palpitations and syncope. No edema. Continues Lasix 40 mg. MEDICATIONS: Current Outpatient Medications Medication Sig potassium chloride (KLOR-CON 10 ORAL) Take 10 mEq by mouth two times a day. meclizine (ANTIVERT) 25 mg tab Take 1 tablet by mouth every 6 hours as needed (dizziness). levothyroxine (SYNTHROID) 75 mcg tablet Take 1 tablet by mouth once daily. Cholestyramine-Aspartam e (PREVALITE) 4 gram powder Take 4 g by mouth once daily. (Patient taking differently: Take 4 g by mouth as needed. PRN) furosemide (LASIX) 40 mg tablet Take 1 tablet by mouth twice daily. (Patient taking differently: Take 40 mg by mouth once daily.) metoprolol succinate ER (TOPROL XL) 25 mg 24 hr tablet Take 1 tablet by mouth once daily. ONE-A-DAY WOMENS FORMULA TAB Take one(1) tablet daily. No current facility-administered medications for this visit. 5ft2in ALLERGIES: ALLERGIES Allergen Reactions Aspirin Other: See Comments bleeding duodenal ulcer Niacin Other: See Comments hot flashing Simvastatin BODYACHES Vicodin [Hydrocodon* GI Upset PAST MEDICAL HISTORY Diagnosis Date Anemia due to GI blood loss 08/19/2010 duodenal ulcer Aortic valve stenosis, moderate 08/19/2010 aortic valve replacement 05/06/12 Benign hypertension 02/28/2016 BPPV (benign paroxysmal positional vertigo) Breast cancer (HCC) 05/03/2022 left Broken ankle 06/30/2019 Chronic diastolic heart failure (HCC) 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 History of aortic valve replacement with bioprosthetic valve Hyperparathyroidism, unspecified (HCC) parathyroidectomy 2006 Hypothyroidism 08/19/2010 Nocturnal hypoxia 05/12/2013 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, 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) Other and unspecified hyperlipidemia Personal history of colonic polyps Colon polyps Renal stone 08/19/2010 Statin intolerance 07/29/2014 Unspecified disorders of calcium metabolism Unspecified functional disorder of intestine Unspecified hearing loss RIGHT EAR ONLY PAST SURGICAL HISTORY Procedure Laterality Date ADENOIDECTOMY PRIMARY Adenoidectomy ANKLE SURGERY HX 07/09/2019 BREAST LUMPECTOMY HX Left 05/03/2022 BX/EXC LYMPH NODE OPEN DEEP AXILLARY NODE Left 05/03/2022 CATARACT EXTRACTION HX 03/18/2014 CHOLECYSTECTOMY Cholecystectomy COLONOSCOPY FLX DX W/COLLJ SPEC WHEN PFRMD 10/08/94,11/11/04 Colonoscopy-repeat in COLONOSCOPY FLX DX W/COLLJ SPEC WHEN PFRMD 04/03/2016 Colonoscopy COLSC FLX W/RMVL OF TUMOR POLYP LESION SNARE TQ 11/2004 Polpectomy, lg intestine ESOPHAGOGASTRODUODENOSC OPY TRANSORAL DIAGNOSTIC [facility] EXCISION PARATHYROID TUMOR 2007 3 parathyroid glands removed LAPAROSCOPY SURG CHOLECYSTECTOMY 11/01/1990 Cholecystectomy, lap LEFT HEART CATH,PERCUTANEOUS 09/01/2011 Cardiac cath, L heart RENAL NDSC NEPHROS/PYELOSTOMY RMVL FB/CALCULUS 06/2010 Dr Hudson RIGHT HEART CATHETERIZATION 09/01/2011 Cardiac cath, R heart RPLCMT PROST AORTIC VALVE OPEN XCP HOMOGRF/STENT 05/06/2012 Aortic valve replacement THYROID FINE NEEDLE ASPIRATION 11/14/2004 TONSILLECTOMY PRIMARY/SECONDARY Tonsillectomy XCAPSL CTRC RMVL INSJ IO LENS PROSTH W/O ECP Cataract Extraction with PC IOL FAMILY HISTORY Problem Relation Age of Onset other (LIVER CIRRHOSIS) Mother Alzheimer's Disease Father other (Aortic valve replacement) Sister other (Aortic valce replacement) Brother COPD Brother Dementia Brother Hypertension Brother No Known Problems Brother No Known Problems Maternal Grandmother No Known Problems Maternal Grandfather No Known Problems Paternal Grandmother No Known Problems Paternal Grandfather Social Histor (more content not included)... Normal [facility] CNOVon 04-16-2024 CNOV Office Visit (GENSWS ) SYDNEY DAIGLE ([id number]) 1935 F Date Time Provider Department 04/16/24 2:00 PM CHINO AMBROSE GENKRYSTLES During your visit today, we recorded the following information about you: Temperature Pulse Respiration Blood pressure 97.8 degrees 70/minute 14/minute 126/60 Weight 70.3 kg Chino Ambrose MD 04/17/2024 8:04 AM Signed FOLLOW UP VISIT - POST OP BREAST CANCER NAME: Sydney Forerst Pilo [facility] NO.: [id number] DATE OF SERVICE: April 10, 2023 : 1935 REFERRING PHYSICIAN: Ethan Donald MD Sydney is a patient I am following for left sided breast cancer. The patient is a 86 year old female with a complaint of a palpable breast mass. The patient notes a mass in the central portion of her left breast. The patient has noticed this mass for some time. The patient had a mammogram and ultrasound on March 15, 2022 which demonstrated: There is a 6 cm irregular mass in the left breast at 12 o'clock anterior depth. This correlates as palpated. There is nipple retraction associated with the mass. No other significant masses, calcifications, or other findings are seen in either breast. IMPRESSION: HIGHLY SUGGESTIVE OF MALIGNANCY - APPROPRIATE ACTION SHOULD BE TAKEN The 6 cm irregular mass in the left breast resembles carcinoma and is highly suggestive of malignancy. An ultrasound guided biopsy is recommended. LIMITED ULTRASOUND OF RIGHT BREAST AND LIMITED ULTRASOUND OF LEFT BREAST AND AXILLA: 03/15/2022 RESULT: Comparison is made to exams dated: 08/24/2014 mammogram and 08/18/2011 mammogram - [facility]. Color flow and real-time ultrasound of the right breast and color flow and real-time ultrasound of the left breast 12 o'clock, retroareolar, and axilla regions were performed. Aj scale images of the real-time examination were reviewed. There is 4.7 cm x 4.2 cm x 4.4 cm irregular mass in the left breast at 12 o'clock anterior depth 2 cm from the nipple. This irregular mass is hypoechoic. This correlates as palpated and with mammography findings. There also is a lymph node with focal cortical thickening in the left axillary tail. IMPRESSION: HIGHLY SUGGESTIVE OF MALIGNANCY - APPROPRIATE ACTION SHOULD BE TAKEN The 4.7 cm x 4.2 cm x 4.4 cm irregular mass in the left breast at 12 o'clock anterior depth resembles carcinoma and is highly suggestive of malignancy. An ultrasound guided biopsy or a surgical consult are recommended. The lymph node with focal cortical thickening in the left axillary tail is suspicious of malignancy. An ultrasound guided biopsy is recommended. She does not perform a self breast exam routinely. She notes thickening of the nipple. She notes nipple discharge. She notes no axillary masses. She notes no family history of breast problems. She notes no significant breast trauma or breast difficulties in the past. Her prior mammogram was in 2014 and was unremarkable The patient is being seen by me at the request of Dr. Ethan Donald MD for my opinion and advice regarding a left breast.. I performed left ultrasound-guided core breast biopsy and biopsy of suspicious axillary lymph node on March 22, 2022. Pathology returned as: NAL DIAGNOSIS A. Lymph node, left axillary, #1, ultrasound-guided core biopsy: ---Fragments of benign lymph node. B. 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 Breast Biomarkers RESULTS: Estrogen Receptor (ER) Positive 90 % Stain intensity: strong Internal controls: absent External controls: appropriately stained Progesterone Receptor (CA) Positive 1 % Stain intensity: moderate Internal controls: absent External controls: appropriately stained HER2 (ERBB2) IMMUNOHISTOCHEMISTRY ASSAY Interpretation: NEGATIVE for HER2 (ERBB2) Expression Score: 1+ The patient has multiple comorbidities including congestive heart failure replaced aortic valve and somewhat limited performance status. I spoke with Dr. Bowen who felt that the patient will be a poor candidate for neoadjuvant treatment and given the fact that the lymph node was negative we would elect to proceed with definitive surgical intervention including sentinel lymph node biopsy. Given the size of the tumor we felt obtaining a PET CT scan to assess for metastatic disease even in the face of a negative axillary lymph node core biopsy was reasonable. The patient returned today for results of biopsy. She had anticipated this would be breast cancer. We extensively discussed her diagnosis and at the last visit discussed her surgical options including breast conservation surgical procedures, mastectomy without reconstruction and mastectomy with reconstruction. The patient has elected (more content not included)... Normal [facility] YANET SCREENING W TOMOon 04-10 YANET SCREENING W LESLIE * * *Final Report* * * DATE OF EXAM: Apr 10 2024 11:27AM [facility] [id number] - YANET SCREENING W LESLIE / PROCEDURE REASON: multiple diagnoses * * * * Physician Interpretation * * * * RESULT: [address] [address] [place] [address] #[id number] - YANET SCREENING W LESLIE HISTORY: Patient is 88 years old and is seen for screening and is asymptomatic in both breasts. The patient has a history of left breast cancer. COMPARISON STUDIES: The present examination has been compared to prior imaging studies dated 03/15/2022 (ultrasound), 03/15/2022 (mammogram), 03/30/2022 (mammogram) and 04/04/2023 (mammogram). MAMMOGRAM TECHNIQUE: The study was acquired using full field digital technology and interpreted from soft copy. Digital Breast Tomosynthesis (DBT) images were obtained and used to assist in the interpretation of this examination. Computer-aided detection was utilized by the radiologist in the interpretation of this examination. MAMMOGRAM FINDINGS: There are scattered areas of fibroglandular density. There are post-operative changes in the left breast. No suspicious masses, calcifications or other abnormalities are seen in either breast. IMPRESSION: There is no mammographic evidence of malignancy. Routine screening mammogram is recommended. Annual mammogram will be due in 1 year. BI-RADS Category 2: Benign Interpreting Radiologist: Johnnie Stanford M.D. Electronically signed on: 04/11/2024 Instructional Writer: RAAD Transcribe Date/Time: Apr 10 2024 11:30A Dictated by: JOHNNIE STANFORD MD This examination was interpreted and the report reviewed and electronically signed by: JOHNNIE STANFORD MD on Apr 11 2024 2:45PM EST [id number] Normal [facility] CNOVon 03-27-2024 CNOV Office Visit (INTMWS ) SYDNEY DAIGLE ([id number]) 1935 F Date Time Provider Department 03/27/24 2:40 PM YELENA MERA INTMWS During your visit today, we recorded the following information about you: Temperature Pulse Respiration Blood pressure 98.7 degrees 57/minute 14/minute 128/68 Weight 70.8 kg Yelena Mera, SAFETY COUNSELOR.PILOT PLANT TECHNICIAN 03/28/2024 7:23 AM Signed CC: Patient presents with: 1 week wound check HPI Aldersondemetrius Daigle is a 88 year old female who presents today for above. See previous office notes in [facility]. Patient and her sister, who has been assisting with dressing changes, report wound seems to be healing. There is a scant, clear yellow drainage and slightly red around the wound. Patient denies pain, tenderness, fever, chills. 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, 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) Other and unspecified hyperlipidemia Personal history of colonic polyps Colon polyps Renal stone 08/19/2010 Statin intolerance 07/29/2014 Unspecified disorders of calcium metabolism Unspecified functional disorder of intestine Unspecified hearing loss RIGHT EAR ONLY PAST SURGICAL HISTORY Procedure Laterality Date ADENOIDECTOMY PRIMARY Adenoidectomy ANKLE SURGERY HX 07/09/2019 BREAST LUMPECTOMY HX Left 05/03/2022 BX/EXC LYMPH NODE OPEN DEEP AXILLARY NODE Left 05/03/2022 CATARACT EXTRACTION HX 03/18/2014 CHOLECYSTECTOMY Cholecystectomy COLONOSCOPY FLX DX W/COLLJ SPEC WHEN PFRMD 10/08/94,11/11/04 Colonoscopy-repeat in COLONOSCOPY FLX DX W/COLLJ SPEC WHEN PFRMD 04/03/2016 Colonoscopy COLSC FLX W/RMVL OF TUMOR POLYP LESION SNARE TQ 11/2004 Polpectomy, lg intestine ESOPHAGOGASTRODUODENOSC OPY TRANSORAL DIAGNOSTIC 07/12[facility] EXCISION PARATHYROID TUMOR 2006 3 parathyroid glands removed LAPAROSCOPY SURG CHOLECYSTECTOMY 11/01/1990 Cholecystectomy, lap LEFT HEART CATH,PERCUTANEOUS 09/01/2011 Cardiac cath, L heart RENAL NDSC NEPHROS/PYELOSTOMY RMVL FB/CALCULUS 06/2010 Dr Hudson RIGHT HEART CATHETERIZATION 09/01/2011 Cardiac cath, R heart RPLCMT PROST AORTIC VALVE OPEN XCP HOMOGRF/STENT 05/06/2012 Aortic valve replacement THYROID FINE NEEDLE ASPIRATION 11/14/2004 TONSILLECTOMY PRIMARY/SECONDARY Tonsillectomy XCAPSL CTRC RMVL INSJ IO LENS PROSTH W/O ECP Cataract Extraction with PC IOL ALLERGIES Aspirin, Niacin, Simvastatin, and Vicodin [Hydrocodone-Acetaminop hen] MEDICATIONS KLOR-CON M10 10 mEq tablet Take 10 mEq by mouth two times a day. meclizine (ANTIVERT) 25 mg tab Take 1 tablet by mouth every 6 hours as needed (dizziness). levothyroxine (SYNTHROID) 75 mcg tablet Take 1 tablet by mouth once daily. Cholestyramine-Aspartam e (PREVALITE) 4 gram powder Take 4 g by mouth once daily. (Patient taking differently: Take 4 g by mouth as needed. PRN) furosemide (LASIX) 40 mg tablet Take 1 tablet by mouth twice daily. (Patient taking differently: Take 40 mg by mouth once daily.) metoprolol succinate ER (TOPROL XL) 25 mg 24 hr tablet Take 1 tablet by mouth once daily. ONE-A-DAY WOMENS FORMULA TAB Take one(1) tablet daily. FAMILY HISTORY Problem Relation Age of Onset other (LIVER CIRRHOSIS) Mother Alzheimer's Disease Father Social History Tobacco Use Smoking status: Never Smokeless tobacco: Never Vaping Use Vaping status: Never Used Substance Use Topics Alcohol use: Yes Comment: SLIGHT Drug use: No BP 128/68 Pulse (!) 57 Temp 37.1 ?C (98.7 ?F) (Temporal) Resp 14 Wt 70.8 kg (156 lb 1.4 oz) SpO2 93% BMI 28.55 kg/m? Physical Exam Vitals reviewed. Constitutional: Appearance: Normal appearance. Skin: Neurological: Mental Status: She is alert. ASSESSMENT/PLAN: 1. Partial thickness burn of upper back, initial encounter - ICD9: 942.24, ICD10: T21.23XA Slow healing wound. No signs of infection including abscess or cellulitis. Discussed referral to wound center for further evaluation but sister and patient declined. Reviewed wound care instructions with them. No further follow-ups indicated at this time but they were instructed to notify me for any signs of infection or delay in wound healing. Prescription instructions reviewed with patient as applicable. Potential red flag symptoms dis (more content not included)... Normal [facility] CNOVon 03-19-2024 CNOV Office Visit (INTMWS ) SYDNEY DAIGLE ([id number]) 1935 F Date Time Provider Department 03/19/24 5:00 PM YELENA MERA INTMWS During your visit today, we recorded the following information about you: Pulse Respiration Blood pressure Weight 82/minute 16/minute 126/80 70 kg Angel Yelena M, SAFETY COUNSELOR.PILOT PLANT TECHNICIAN 03/19/2024 5:09 PM Signed CC: Patient presents with: Recheck: 1 week wound check HPI Sydney Daigle is a 88 year old female who presents today for above. Patient was seen one week ago for burn wound to mid back from heating pad and possible cellulitis. Wound care advise was given and she was treated with Doxycycline. Today patient is here with her sister again who has been assisting with wound care. She feels there has been definite improvement in wound appearance and has become a lot smaller. She did have skin irritation from paper tape but improving once she stopped using it. Patient denies pain, just feels itchy. Denies purulent drainage, fever, chills, malaise. No side effects to the antibiotics. 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, 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) Other and unspecified hyperlipidemia Personal history of colonic polyps Colon polyps Renal stone 08/19/2010 Statin intolerance 07/29/2014 Unspecified disorders of calcium metabolism Unspecified functional disorder of intestine Unspecified hearing loss RIGHT EAR ONLY PAST SURGICAL HISTORY Procedure Laterality Date ADENOIDECTOMY PRIMARY Adenoidectomy ANKLE SURGERY HX 07/09/2019 BREAST LUMPECTOMY HX Left 05/03/2022 BX/EXC LYMPH NODE OPEN DEEP AXILLARY NODE Left 05/03/2022 CATARACT EXTRACTION HX 03/18/2014 CHOLECYSTECTOMY Cholecystectomy COLONOSCOPY FLX DX W/COLLJ SPEC WHEN PFRMD 10/08/94,11/11/04 Colonoscopy-repeat in COLONOSCOPY FLX DX W/COLLJ SPEC WHEN PFRMD 04/03/2016 Colonoscopy COLSC FLX W/RMVL OF TUMOR POLYP LESION SNARE TQ 11/2004 Polpectomy, lg intestine ESOPHAGOGASTRODUODENOSC OPY TRANSORAL DIAGNOSTIC 07/12/2010 EGD inpt [facility] H-pylori is negative EXCISION PARATHYROID TUMOR 2006 3 parathyroid glands removed LAPAROSCOPY SURG CHOLECYSTECTOMY 11/01/1990 Cholecystectomy, lap LEFT HEART CATH,PERCUTANEOUS 09/01/2011 Cardiac cath, L heart RENAL NDSC NEPHROS/PYELOSTOMY RMVL FB/CALCULUS 06/2010 Dr Hudson RIGHT HEART CATHETERIZATION 09/01/2011 Cardiac cath, R heart RPLCMT PROST AORTIC VALVE OPEN XCP HOMOGRF/STENT 05/06/2012 Aortic valve replacement THYROID FINE NEEDLE ASPIRATION 11/14/2004 TONSILLECTOMY PRIMARY/SECONDARY Tonsillectomy XCAPSL CTRC RMVL INSJ IO LENS PROSTH W/O ECP Cataract Extraction with PC IOL ALLERGIES Aspirin, Niacin, Simvastatin, and Vicodin [Hydrocodone-Acetaminop hen] MEDICATIONS KLOR-CON M10 10 mEq tablet Take 10 mEq by mouth two times a day. meclizine (ANTIVERT) 25 mg tab Take 1 tablet by mouth every 6 hours as needed (dizziness). levothyroxine (SYNTHROID) 75 mcg tablet Take 1 tablet by mouth once daily. metoprolol succinate ER (TOPROL XL) 25 mg 24 hr tablet Take 1 tablet by mouth once daily. ONE-A-DAY WOMENS FORMULA TAB Take one(1) tablet daily. Cholestyramine-Aspartam e (PREVALITE) 4 gram powder Take 4 g by mouth once daily. (Patient taking differently: Take 4 g by mouth as needed. PRN) furosemide (LASIX) 40 mg tablet Take 1 tablet by mouth twice daily. (Patient taking differently: Take 40 mg by mouth once daily.) FAMILY HISTORY Problem Relation Age of Onset other (LIVER CIRRHOSIS) Mother Alzheimer's Disease Father Social History Tobacco Use Smoking status: Never Smokeless tobacco: Never Vaping Use Vaping status: Never Used Substance Use Topics Alcohol use: Yes Comment: SLIGHT Drug use: No BP 126/80 Pulse 82 Resp 16 Wt 70 kg (154 lb 5.2 oz) SpO2 96% BMI 28.23 kg/m? Physical Exam Vitals reviewed. Constitutional: Appearance: Normal appearance. Skin: Neurological: Mental Status: She is alert. ASSESSMENT/PLAN: 1. Partial thickness burn of upper back, initial encounter - ICD9: 942.24, ICD10: T21.23XA (primary diagnosis) Healing well. No signs of wound infection. Recommend keeping open to air now. Follow-up in one week for continued monitoring. 2. Cellulitis of back except buttock - ICD9: 682.2, ICD10: L03. (more content not included)... Normal [facility] CNOVon 03-12-2024 CNOV Office Visit (INTMWS ) SYDNEY DAIGLE ([id number]) 1935 F Date Time Provider Department 03/12/24 6:00 PM YELENA MERA INTMWS During your visit today, we recorded the following information about you: Pulse Respiration Blood pressure Weight 68/minute 16/minute 116/62 71.3 kg Yelena Mera, SAFETY COUNSELOR.PILOT PLANT TECHNICIAN 03/12/2024 6:22 PM Signed CC: Patient presents with: Burn: Skin burn mid left back, possibly due to heating pad HPI Sydney Daigle is a 88 year old female who presents today for above. Patient's sister noticed what appeared to a burn on the left side of her back about 10 days ago. Patient admitted to prolonged use of heating pad with just a thin cotton shirt between the pad and the skin. They were treating with healing ointment but the skin started to slough off and developed redness around it. Patient reports discomfort when her bra rubs against it but otherwise no significant pain. Denies purulent drainage, red streaking, swelling, fever, chills or malaise. 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, 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) Other and unspecified hyperlipidemia Personal history of colonic polyps Colon polyps Renal stone 08/19/2010 Statin intolerance 07/29/2014 Unspecified disorders of calcium metabolism Unspecified functional disorder of intestine Unspecified hearing loss RIGHT EAR ONLY PAST SURGICAL HISTORY Procedure Laterality Date ADENOIDECTOMY PRIMARY Adenoidectomy ANKLE SURGERY HX 07/09/2019 BREAST LUMPECTOMY HX Left 05/03/2022 BX/EXC LYMPH NODE OPEN DEEP AXILLARY NODE Left 05/03/2022 CATARACT EXTRACTION HX 03/18/2014 CHOLECYSTECTOMY Cholecystectomy COLONOSCOPY FLX DX W/COLLJ SPEC WHEN PFRMD 10/08/94,11/11/04 Colonoscopy-repeat in COLONOSCOPY FLX DX W/COLLJ SPEC WHEN PFRMD 04/03/2016 Colonoscopy COLSC FLX W/RMVL OF TUMOR POLYP LESION SNARE TQ 11/2004 Polpectomy, lg intestine ESOPHAGOGASTRODUODENOSC OPY TRANSORAL DIAGNOSTIC [facility]/12[facility] EXCISION PARATHYROID TUMOR 2006 3 parathyroid glands removed LAPAROSCOPY SURG CHOLECYSTECTOMY 11/01/1990 Cholecystectomy, lap LEFT HEART CATH,PERCUTANEOUS 09/01/2011 Cardiac cath, L heart RENAL NDSC NEPHROS/PYELOSTOMY RMVL FB/CALCULUS 06/2010 Dr Hudson RIGHT HEART CATHETERIZATION 09/01/2011 Cardiac cath, R heart RPLCMT PROST AORTIC VALVE OPEN XCP HOMOGRF/STENT 05/06/2012 Aortic valve replacement THYROID FINE NEEDLE ASPIRATION 11/14/2004 TONSILLECTOMY PRIMARY/SECONDARY Tonsillectomy XCAPSL CTRC RMVL INSJ IO LENS PROSTH W/O ECP Cataract Extraction with PC IOL ALLERGIES Aspirin, Niacin, Simvastatin, and Vicodin [Hydrocodone-Acetaminop hen] MEDICATIONS KLOR-CON M10 10 mEq tablet Take 10 mEq by mouth two times a day. meclizine (ANTIVERT) 25 mg tab Take 1 tablet by mouth every 6 hours as needed (dizziness). levothyroxine (SYNTHROID) 75 mcg tablet Take 1 tablet by mouth once daily. Cholestyramine-Aspartam e (PREVALITE) 4 gram powder Take 4 g by mouth once daily. (Patient taking differently: Take 4 g by mouth as needed. PRN) furosemide (LASIX) 40 mg tablet Take 1 tablet by mouth twice daily. (Patient taking differently: Take 40 mg by mouth once daily.) metoprolol succinate ER (TOPROL XL) 25 mg 24 hr tablet Take 1 tablet by mouth once daily. ONE-A-DAY WOMENS FORMULA TAB Take one(1) tablet daily. FAMILY HISTORY Problem Relation Age of Onset other (LIVER CIRRHOSIS) Mother Alzheimer's Disease Father Social History Tobacco Use Smoking status: Never Smokeless tobacco: Never Vaping Use Vaping status: Never Used Substance Use Topics Alcohol use: Yes Comment: SLIGHT Drug use: No BP 116/62 (BP Site: Left Arm, BP Position: Sitting, BP Cuff Size: Regular Adult) Pulse 68 Resp 16 Wt 71.3 kg (157 lb 3 oz) SpO2 96% BMI 28.75 kg/m? Physical Exam Vitals reviewed. Constitutional: Appearance: Normal appearance. Skin: Neurological: Mental Status: She is alert. Psychiatric: Mood and Affect: Mood normal. ASSESSMENT/PLAN: 1. Cellulitis of back except buttock - ICD9: 682.2, ICD10: L03.312 (primary diagnosis) The wound itself does not appear infected but surrounding erythema concerning for cellulitis. - Begin treatment with Doxycycline - No (more content not included)... Normal [facility] 03-12-2024 [facility] SYDNEY DAIGLE ([id number]) 1935 F Date Time Provider Department 03/12/24 ETHAN DONALD [facility] During your visit today, we recorded the following information about you: Adriane Bang, RN 03/12/2024 2:19 PM Signed Mary, patient's friend, reports she checks on patient daily. Reports patient has had an area on her back, under bra line, that Mary has been caring for for a few days. Reports it appears as a possible heating pad burn, but Mary is not sure. Mary has been cleaning it daily. At first Mary noticed a few blisters, but they are gone now, and the area now appears a bright red, in an area approx 2 x 2 area. Today Mary put betadine on it. Patient tells Mary the area is tender. Mary would like a provider to look at this area and let patient know how to care for it. Wonders if patient may need an AB. Reports no drainage, no swelling at the site. Patient does not have a fever. No openings in pcp office. Scheduled same day appt with Yelena. Allergies As of Date: 03/12/2024 Noted Allergy Reaction ASPIRIN 08/19/2010 14 - Other: See Comments Comments: bleeding duodenal ulcer NIACIN 06/03/2010 14 - Other: See Comments Comments: hot flashing SIMVASTATIN 07/17/2008 Comments: BODYACHES VICODIN (HYDROCODONE-ACETAMINOP HE*06/23/2010 8 - GI Upset Date Reviewed: 11/20/2023 Reviewed by: Jemima Mao MA - Fully Assessed Reason for Visit: Patient concern [Other] Prescriptions as of 03/12/2024 - KLOR-CON M10 10 mEq tablet Take 10 mEq by mouth two times a day. - meclizine (ANTIVERT) 25 mg tab Take 1 tablet by mouth every 6 hours as needed (dizziness). - levothyroxine (SYNTHROID) 75 mcg tablet Take 1 tablet by mouth once daily. - Cholestyramine-Aspartam e (PREVALITE) 4 gram powder Take 4 g by mouth once daily. - furosemide (LASIX) 40 mg tablet Take 1 tablet by mouth twice daily. - metoprolol succinate ER (TOPROL XL) 25 mg 24 hr tablet Take 1 tablet by mouth once daily. - ONE-A-DAY WOMENS FORMULA TAB Take one(1) tablet daily. Problem List As Of Date 03/12/2024 Noted Resolved Hearing loss [H91.90] Hyperlipidemia LDL goal <100 [E78.5] Hyperparathyroidism (HCC) [E21.3] 12/05/2017 PERS HX COLONIC POLYPS [Z86.0100] Osteoporosis [M81.0] 04/01/2007 Aortic valve stenosis, moderate [I35.0] 08/19/2010 12/05/2017 Renal stone [N20.0] 08/19/2010 Hypothyroidism [E03.9] 08/19/2010 Anemia [D64.9] 08/19/2010 08/28/2016 Anemia due to GI blood loss [D50.0] 08/19/2010 08/28/2016 Diaphragmatic paresis [J98.6] 05/12/2013 Nocturnal hypoxia [G47.34] 05/12/2013 Statin intolerance [Z78.9] 07/29/2014 Benign hypertension [I10] 02/28/2016 Actinic keratosis [L57.0] 08/28/2016 Chronic diastolic congestive heart failure (HCC*01/05/2021 S/P aortic valve replacement [Z95.2] 01/05/2021 Acute medial meniscus tear of left knee [S83.24*02/14/2022 Acute poliomyelitis [A80.9] 02/14/2022 Aftercare following surgery of the musculoskele*02/14/2022 11/20/2023 Closed fracture dislocation of left ankle [S82.*02/14/2022 Diaphragmatic paralysis [J98.6] 02/14/2022 Obstructive sleep apnea syndrome [G47.33] 02/14/2022 Physical debility [R53.81] 02/14/2022 11/20/2023 Pressure injury of ankle, stage 2 ([facility]) [L89.50*02/14/2022 02/15/2023 Secondary pulmonary arterial hypertension (HCC)*02/14/2022 Status post ORIF of fracture of ankle [Z98.890,*02/14/2022 Ventricular ectopic beats [I49.3] 02/14/2022 Hypoxia [R09.02] 05/03/2022 05/04/2022 Malignant neoplasm of left female breast (HCC) *08/14/2022 Generalized hyperhidrosis [R61] 02/20/2022 Diagnosed: 05/22/2023 Stenosis of prosthetic aortic valve [T82.857A] 05/22/2023 Diagnosed: 05/22/2023 Vertigo [R42] 12/07/2021 Diagnosed: 05/22/2023 Encounter Status:Closed by YELENA MERA on 03/12/24 Normal [facility] Orthopedic Visit Reporton Orthopedic Visit Report [facility] [place] [address] OFFICE VISIT Date of Service: 11/28/23 MR#: [id number] Acct: [id number] Name: SYDNEY DAIGLE Rep #: [id number] : 1935 Provider: Dr. Abdirashid Swan so, DO Age/Sex: 88/F Location: [facility] [place] Status: Signed Intake Vital Signs 04/24/23 14:42 11/23/23 11:15 Height 5 ft 2 in 5 ft 2 in Weight: 156 lb BMI 28.5 BP 151/62 H Blood Pressure Location Lt brachial Position Sitting Respiration 16 Pulse 55 L Pulse Source Monitor Intake Visit Reasons: LEFT HIP Chief Complaint: left hip post op Allergies aspirin Allergy (Verified 11/23/23 11:41) made my blood too thin hydrocodone (From Vicodin) Allergy (Verified 11/23/23 11:41) feels like getting high niacin Adverse Reaction (Verified 11/23/23 11:41) severe sweating simvastatin Adverse Reaction (Verified 11/23/23 11:41) muscle aches Have you fallen in the past year?: Yes PFSH Medical History (Reviewed 11/23/23 @ 11:40 by Nani Quesada INFORMATION MANAGEMENT MANAGER, INFORMATION MANAGEMENT MANAGER-C) Vertigo Prosthetic aortic valve stenosis Hypokalemia Hypothyroidism Edema Anemia Closed left ankle fracture Debility Decubitus ulcer of ankle, stage 2 Diaphragmatic paralysis Normochromic normocytic anemia Ventricular ectopy Physical debility ANDRY (obstructive sleep apnea) Closed fracture dislocation of left ankle joint Polio Obstructive sleep apnea Vertigo Secondary pulmonary arterial hypertension Obesity Chronic diastolic (congestive) heart failure Essential (primary) hypertension Non-rheumatic aortic stenosis Hypothyroidism Surgical History (Reviewed 11/23/23 @ 11:40 by Nani Quesada INFORMATION MANAGEMENT MANAGER, INFORMATION MANAGEMENT MANAGER-C) History of repair of left hip joint ( 03/2023) History of partial mastectomy of left breast History of aortic valve replacement with bioprosthetic valve History of open reduction and internal fixation (ORIF) procedure (07/09/19) History of right and left heart catheterization (09/01/11) Hx of cholecystectomy History of parathyroidectomy History of tonsillectomy and adenoidectomy H/O breast biopsy H/O colonoscopy History of aortic valve replacement with bioprosthetic valve (05/06/12) Family History (Reviewed 11/23/23 @ 11:40 by Nani Quesada INFORMATION MANAGEMENT MANAGER, INFORMATION MANAGEMENT MANAGER-C) Father Dementia Mother Liver cirrhosis Sister Aortic valve disease Brother Dementia Social History household members: none Smoking Status: Never smoker alcohol intake: current alcohol intake frequency: holidays/special occasions only substance use type: does not use caffeine: Yes Type: coffee Number of servings: 1 HPI LEFT HIP Details: This documentation accurately reflects the service provided and the decisions made by me, Dr. Abdirashid Pinto, DO 11/28/23 1237. Part of today???s visit was documented by [ ], acting as scribe. SYDNEY DAIGLE is a 88 year old F here today for follow-up left hip hemiarthroplasty 04/19/2023. Patient and friend have noticed that the lower part of the incision had some residual scabbing over the months there was some time when there was a small amount of drainage however over the last few weeks it is dried up and actually has shrunken to about a dime size she has had no fevers chills or recent infections she has no pain in her hip. Ortho Exam General General: Yes no acute distress (Pleasant and seen with her friend today) Neurologic: Yes alert and Yes oriented x3 Psychologic: Yes reasonable and appropriate Left Hip HIP: There is a dime size area of scabbing at the inferior part of her incision there is no surrounding erythema there is no drainage it is dry there is no underlying fluctuance no cellulitis. Supplemental Info 06/01/2023 x-ray left hip: Status post hemiarthroplasty bipolar, without concern 04/19/2023 left hip hemiarthroplasty: Dr. Pinto Coding Level of Care Code Off vis,est,level 3 Diagnoses S/P hip hemiarthroplasty Z96.649 Assessment and Plan Assessment and Plan (1) S/P hip hemiarthroplasty: Status: Acute Plan Sydney is doing well she is not having any pain she has no signs of infection she was concerned that she has some residual scabbing on the inferior part of her incision. I suspect she had a stitch abscess that came to the surface the area is dry and scabbed over there is no surrounding erythema there is no fluctuance no signs of infection at this point I think we should just continue to monitor it as it has been decreasing in size over the past several weeks if however some reason it begins to drain again and there is increased pain or any fevers or chills or other concerning symptoms that are unusual she is to let me know for reevaluation Clinical Quality Measures Falls Risk Screening/Assistive Devices Have you falle (more content not included)... Normal [facility] Cardiology Visit Reporton Cardiology Visit Report [facility] [address] [place] [address] OFFICE VISIT Date of Service: 11/23/23 MR#: [id number] Acct: [id number] Name: SYDNEY DAIGLE Rep #: [id number] : 1935 Provider: MILLICENT chester Age/Sex: 88/F Location: [facility] [place] Status: Signed HPI HPI History of Present Illness Details: SYDNEY DAIGLE, is an 88 F who presents to the office today for a cardiovascular outpatient follow-up. She has a history of aortic valve replacement with a 21 mm [employer] pericardial bioprosthesis this was in April 2012. She also has a history of diastolic heart failure and hypertension. She presented to the hospital in November of 2021 with dizziness, nausea and vomiting. She was thought to have vertigo. Her cardiac work-up at that time was negative-her troponins were negative. She was recently diagnosed with breast cancer, and underwent a partial mastectomy on 05/03/[address] Ambrose in [place]. She has elected not to have any chemotherapy. From a cardiac standpoint, the patient is doing well. She is accompanied by her sister. She denies any palpitations, chest pain, pressure or heaviness. She denies SOB, Orthopnea, and PND. She does not have bleeding issues; no blood in urine, stool or nosebleeds. She denies any decrease in energy level, myalgias, or claudication. She does not have edema, or sudden weight gain. She denies dizziness, lightheadedness, syncopal or near syncopal episodes, and headaches. She states she does work out at [facility] [employer] 3x a week. Intake Vital Signs 03/13/23 13:15 04/24/23 14:42 11/23/23 11:15 Height 5 ft 2 in 5 ft 2 in 5 ft 2 in Weight: 156 lb BMI 28.5 BP 151/62 H Blood Pressure Location Lt brachial Position Sitting Respiration 16 Pulse 55 L Pulse Source Monitor Intake Visit Reasons: 9 M Floor Grinder Required: No Accompanied by: Sister Is patient in pain?: No Allergies aspirin Allergy (Verified 11/23/23 11:41) made my blood too thin hydrocodone (From Vicodin) Allergy (Verified 11/23/23 11:41) feels like getting high niacin Adverse Reaction (Verified 11/23/23 11:41) severe sweating simvastatin Adverse Reaction (Verified 11/23/23 11:41) muscle aches Medications ???Medication ???Instructions ???Recorded ???Confirmed ???Type multivitamin with minerals 1 tab PO DAILY supplement 06/30/19 11/23/23 History meclizine 25 mg tablet 25 mg PO TID PRN PRN dizziness #21 12/04/21 11/23/23 Rx tabs acetaminophen 325 mg tablet 650 mg (2 x 325 mg) PO Q6H PRN PRN 04/25/23 11/23/23 Rx Pain 1-10 Or Fever >100.7 #0 tabs furosemide 40 mg tablet 40 mg PO DAILY #90 tabs 05/22/23 11/23/23 Rx levothyroxine 75 mcg tablet 75 mcg PO DAILY #90 tabs 05/23/23 11/23/23 Rx metoprolol succinate 25 mg 25 mg PO DAILY #90 tabs 05/23/23 11/23/23 Rx tablet,extended release 24 hr vitamins A,C,Z-gahl-bmspia 4,296 1 cap PO QAM AND QPM 06/01/23 11/23/23 History mcg-226 mg-90 mg capsule (PreserVision AREDS) potassium chloride 10 mEq 10 meq PO BIDCM #90 tabs 09/06/23 11/23/23 Rx tablet,extended release(part/cryst) Ejection fraction %: 55 Have you fallen in the past year?: Yes PFSH Medical History (Reviewed 11/23/23 @ 11:40 by Nani Quesada INFORMATION MANAGEMENT MANAGER, INFORMATION MANAGEMENT MANAGER-C) Vertigo Prosthetic aortic valve stenosis Hypokalemia Hypothyroidism Edema Anemia Closed left ankle fracture Debility Decubitus ulcer of ankle, stage 2 Diaphragmatic paralysis Normochromic normocytic anemia Ventricular ectopy Physical debility ANDRY (obstructive sleep apnea) Closed fracture dislocation of left ankle joint Polio Obstructive sleep apnea Vertigo Secondary pulmonary arterial hypertension Obesity Chronic diastolic (congestive) heart failure Essential (primary) hypertension Non-rheumatic aortic stenosis Hypothyroidism Surgical History (Reviewed 11/23/23 @ 11:40 by Nani Quesada INFORMATION MANAGEMENT MANAGER, INFORMATION MANAGEMENT MANAGER-C) History of repair of left hip joint ( 03/2023) History of partial mastectomy of left breast History of aortic valve replacement with bioprosthetic valve History of open reduction and internal fixation (ORIF) procedure (07/09/19) History of right and left heart catheterization (09/01/11) Hx of cholecystectomy History of parathyroidectomy History of tonsillectomy and adenoidectomy H/O breast biopsy H/O colonoscopy History of aortic valve replacement with bioprosthetic valve (05/06/12) Family History Father Dementia Mother Liver cirrhosis Sister Aortic valve disease Brother Dementia Social History household members: none Smoking Status: Never smoker alcohol intake: current alcohol intake frequency: holidays/special occasions only substance use type: does not use caffeine: Y (more content not included)... Normal [facility] COVID-19 virus antigen assay Ordered By: Rene Kim on 04-25-2023 SARS-CoV-2 (COVID-19) Ag IA.rapid Ql (Resp) [facility] Absolute lymphocyte countOrd ered By: Sarah Marie on 04-21-2023 Lymphocytes Auto (Unsp spec) [#/Vol] 1.43 10*3/uL 0.83-4.51 [facility] Basophil percentageOrdered B y: Sarah Marie on 04-21-2023 Basophils/100 WBC (Bld) 0.5 % 0-1 [facility] Chloride [Moles/Vol] 100 mmol/L 98-107 [facility] Eosinophils/100 WBC (Bld) 5.1 % 0-5 [facility] Glucose [Mass/Vol] 107 mg/dL 74-106 [facility] Comment on above: Fasting Glucose resu lt from 100 to 125 mg/dL suggests IMPAIRED HOMEOSTASIS per A.D.A. criteria. Neutrophils (Bld) [#/Vol] 6.7 10*3/uL 2.0-7.7 [facility] Neutrophils/100 WBC (Bld) 68.2 % 47-70 [facility] Potassium [Moles/Vol] 3.9 mmol/L 3.5-5.1 [facility] Sodium [Moles/Vol] 139 mmol/L 136-145 [facility] WBC (Bld) [#/Vol] 9.8 10*3/uL 4.4-11.0 [facility] Blood erythrocytes count (nu mber/volume)Ordered By: Sarah Marie on 04-21-2023 RBC (Bld) [#/Vol] 3.24 10*6/uL 4.2-5.4 [facility] Blood hemoglobin measurement (mass/volume)Ordered By: Sarah Marie on 04-21-2023 Hemoglobin (Bld) [Mass/Vol] 10.2 g/dL 12.0-15.0 [facility] Blood lymphocytes/100 leukoc ytesOrdered By: Sarah Marie on 04-21-2023 Lymphocytes/100 WBC (Bld) 14.6 % 19-41 [facility] Blood monocytes/100 leukocyt esOrdered By: Sarah Marie on 04-21-2023 Monocytes/100 WBC (Bld) 10.7 % 0-10 [facility] Blood platelet mean volumeOr dered By: Sarah Marie on 04-21-2023 Platelet mean volume (Bld) [Entitic vol] 10.5 fL 6.2-12.0 [facility] Determination of erythrocyte mean corpuscular volume (MCV)Ordered By: Sarah Marie on 04-21-2023 MCV (RBC) [Entitic vol] 104.3 fL 81-99 [facility] Hematocrit Auto (Bld) [Volum e fraction]Ordered By: Sarah Marie on 04-21-2023 Hematocrit (Bld) [Volume fraction] 33.8 % 37-47 [facility] - Chemistry and C hemistry - challengeOrdered By: Sarah Marie on 04-21-2023 CO2 [Moles/Vol] 38.0 mmol/L 21.0-32.0 [facility] Urea nitrogen/Creatinine [Mass ratio] 19.7 mg/mg 10-20 [facility] - Hematology and Cell countsOrdered By: Sarah Marie on 04-21-2023 Erythrocyte distribution width (RBC) [Entitic vol] 52.4 fL 35.1-43.9 [facility] Erythrocyte distribution width (RBC) [Ratio] 13.7 % 11.6-14.6 [facility] Immature granulocytes/100 WBC (Bld) 0.900 % 0.0-0.9 [facility] Comment on above: IG% - Immature Granu locytes (promyelocytes, myelocytes and metamyelocytes) > 1% indicates that a LEFT SHIFT is Present. MCH (RBC) [Entitic mass] 31.5 pg 27.0-32.0 [facility] Nucleated RBC/100 WBC (Bld) [Ratio] 0 % 0-5 [facility] MCHC Auto (RBC) [Mass/Vol]Or dered By: Sarah Marie on 04-21-2023 MCHC (RBC) [Mass/Vol] 30.2 g/dL 32-36 [facility] No Panel InformationOrdered By: Sarah Marie on 04-21-2023 Estimated Creatinine Clearance Calc 32.53 ml/min [facility] Estimated GFR (MDRD) Amer 109 mL/min >60 [facility] Comment on above: GFR Calc Estimated GFR (MDRD) Non-Af Amer 90 mL/min >60 [facility] Comment on above: Non- GFR Calc Platelets bldOrdered By: Marybeth Marie on 04-21-2023 Platelets (Bld) [#/Vol] 204 10*3/uL 150-450 [facility] Serum or plasma calcium james urement (mass/volume)Ordered By: Sarah Marie on 04-21-2023 Calcium [Mass/Vol] 9.4 mg/dL 8.5-10.1 [facility] Serum or plasma creatinine m easurement (mass/volume)Ordered By: Sarah Marie on 04-21-2023 Creatinine [Mass/Vol] 0.66 mg/dL 0.55-1.02 [facility] Comment on above: The validity of the calculated GFR & GFRAA in patients over 70 years has not been determined. Clinical correlation is essential. Serum or plasma urea nitroge n measurement (mass/volume)Ordered By: Sarah Marie on 04-21-2023 Urea nitrogen [Mass/Vol] 13 mg/dL 7-18 [facility] Thin prep Papanicolaou smear with manual screeningOrdered By: Sarah Marie on 04-21-2023 Thin prep Papanicolaou smear with manual screening 1 5-15 [facility] - Chemistry and C hemistry - challengeOrdered By: Sarah Marie on 04-18-2023 Natriuretic peptide B (Bld) [Mass/Vol] 219.7 pg/mL 0-100 [facility] No Panel InformationOrdered By: Sarah Marie on 04-18-2023 Thyroid Stimulating Hormone (TSH) 1.46 uIU/mL 0.358-3.74 [facility] No Panel InformationOrdered By: Koby Ochoa on 04-18-2023 Vitamin D 25-Hydroxy 74.0 ng/mL [facility] Comment on above: Vitamin D 25(OH) Sta tus Range Deficiency <20 ng/mL (50nmol/L) Insufficiency 20 - 30 ng/mL (50 - 75 nmol/L) Sufficiency 30 - 100 ng/mL (75 - 250 nmol/L) Toxicity >100 ng/mL (>250 nmol/L) Absolute lymphocyte countOrd ered By: Deon Dickerson on 04-17-2023 Lymphocytes Auto (Unsp spec) [#/Vol] 1.31 10*3/uL 0.83-4.51 [facility] Basophil percentageOrdered B y: Deon Dickerson on 04-17-2023 Basophil percentage 0 SEEN /hpf 0-5 [facility] Basophils/100 WBC (Bld) 0.5 % 0-1 [facility] Bilirubin [Mass/Vol] 0.50 mg/dL 0.20-1.00 [facility] Comment on above: For patients on eltr ombopag therapy, use of Dimension [place] TBIL is not recommended. Chloride [Moles/Vol] 104 mmol/L 98-107 [facility] Eosinophils/100 WBC (Bld) 0.4 % 0-5 [facility] Glucose [Mass/Vol] 131 mg/dL 74-106 [facility] Comment on above: Fasting Glucose resu lt greater than or equal to 126 mg/dL suggests DIABETES MELLITUS per A.D.A. criteria. Neutrophils (Bld) [#/Vol] 13.1 10*3/uL 2.0-7.7 [facility] Neutrophils/100 WBC (Bld) 86.0 % 47-70 [facility] Potassium [Moles/Vol] 3.9 mmol/L 3.5-5.1 [facility] Protein [Mass/Vol] 7.7 g/dL 6.4-8.2 [facility] Sodium [Moles/Vol] 141 mmol/L 136-145 [facility] WBC (Bld) [#/Vol] 15.2 10*3/uL 4.4-11.0 [facility] Bilirubin Test strip Ql (U)O rdered By: Deon Dickerson on 04-17-2023 Bilirubin Ql (U) Negative Negative [facility] Blood erythrocytes count (nu mber/volume)Ordered By: Deon Dickerson on 04-17-2023 RBC (Bld) [#/Vol] 4.38 10*6/uL 4.2-5.4 [facility] Blood hemoglobin measurement (mass/volume)Ordered By: Deon Dickerson on 04-17-2023 Hemoglobin (Bld) [Mass/Vol] 13.7 g/dL 12.0-15.0 [facility] Blood lymphocytes/100 leukoc ytesOrdered By: Deon Dickerson on 04-17-2023 Lymphocytes/100 WBC (Bld) 8.6 % 19-41 [facility] Blood monocytes/100 leukocyt esOrdered By: Deon Dickerson on 04-17-2023 Monocytes/100 WBC (Bld) 3.9 % 0-10 [facility] Blood platelet mean volumeOr dered By: Deon Dickerson on 04-17-2023 Platelet mean volume (Bld) [Entitic vol] 10.1 fL 6.2-12.0 [facility] Determination of erythrocyte mean corpuscular volume (MCV)Ordered By: Deon Dickerson on 04-17-2023 MCV (RBC) [Entitic vol] 100.9 fL 81-99 [facility] Glucose Glucometer (BldC) [M ass/Vol]Ordered By: Deon Dickerson on 04-17-2023 Glucose [Mass/Vol] 155 mg/dL 74-106 [facility] Comment on above: MANAGEMENT OF PATIEN T CARE PER NURSING PROTOCOL Hematocrit Auto (Bld) [Volum e fraction]Ordered By: Deon Dickerson on 04-17-2023 Hematocrit (Bld) [Volume fraction] 44.2 % 37-47 [facility] Ketones Test strip Ql (U)Ord ered By: Deon Dickerson on 04-17-2023 Ketones Ql (U) 50 mg/dl Negative [facility] Laboratory - Chemistry and C hemistry - challengeOrdered By: Deon Dickerson on 04-17-2023 ALP [Catalytic activity/Vol] 97 U/L 45-117 [facility] ALT [Catalytic activity/Vol] 29 U/L 13-56 [facility] CO2 [Moles/Vol] 32.0 mmol/L 21.0-32.0 [facility] Globulin (S) [Mass/Vol] 4.1 g/dL 2.2-4.2 [facility] Urea nitrogen/Creatinine [Mass ratio] 22.5 mg/mg 10-20 [facility] - Hematology and Cell countsOrdered By: Deon Dickerson on 04-17-2023 Erythrocyte distribution width (RBC) [Entitic vol] 51.9 fL 35.1-43.9 [facility] Erythrocyte distribution width (RBC) [Ratio] 14.0 % 11.6-14.6 [facility] Immature granulocytes/100 WBC (Bld) 0.600 % 0.0-0.9 [facility] Comment on above: IG% - Immature Granu locytes (promyelocytes, myelocytes and metamyelocytes) > 1% indicates that a LEFT SHIFT is Present. MCH (RBC) [Entitic mass] 31.3 pg 27.0-32.0 [facility] Nucleated RBC/100 WBC (Bld) [Ratio] 0 % 0-5 [facility] MCHC Auto (RBC) [Mass/Vol]Or dered By: Deon Dickerson on 04-17-2023 MCHC (RBC) [Mass/Vol] 31.0 g/dL 32-36 [facility] Mucus LM Ql (Urine sed)Order ed By: Deon Dickerson on 04-17-2023 Mucus Ql (Urine sed) 0 SEEN /hpf [facility] Nitrite Test strip Ql (U)Ord ered By: Deon Dickerson on 04-17-2023 Nitrite Ql (U) Negative Negative [facility] No Panel InformationOrdered By: Deon Dickerson on 04-17-2023 Estimated Creatinine Clearance Calc 46.26 ml/min [facility] Estimated GFR (MDRD) Amer 88 mL/min >60 [facility] Comment on above: GFR Calc Estimated GFR (MDRD) Non-Af Amer 72 mL/min >60 [facility] Comment on above: Non- GFR Calc Platelets bldOrdered By: Maraí Dickerson on 04-17-2023 Platelets (Bld) [#/Vol] 264 10*3/uL 150-450 [facility] Protein Test strip Ql (U)Ord ered By: Deon Dickerson on 04-17-2023 Protein Ql (U) 30 mg/dl Negative [facility] Serum or plasma albumin james urement (mass/volume)Ordered By: Deon Dickerson on 04-17-2023 Albumin [Mass/Vol] 3.6 g/dL 3.2-5.0 [facility] Serum or plasma albumin/glob ulin mass ratioOrdered By: Deon Dickerson on 04-17-2023 Albumin/Globulin [Mass ratio] 0.9 {ratio} 0.9-2.4 [facility] Serum or plasma calcium james urement (mass/volume)Ordered By: Deon Dickerson on 04-17-2023 Calcium [Mass/Vol] 9.5 mg/dL 8.5-10.1 [facility] Serum or plasma creatinine m easurement (mass/volume)Ordered By: Deon Dickerson on 04-17-2023 Creatinine [Mass/Vol] 0.80 mg/dL 0.55-1.02 [facility] Comment on above: The validity of the calculated GFR & GFRAA in patients over 70 years has not been determined. Clinical correlation is essential. Serum or plasma urea nitroge n measurement (mass/volume)Ordered By: Deon Dickerson on 04-17-2023 Urea nitrogen [Mass/Vol] 18 mg/dL 7-18 [facility] Squamous epithelial cells de tection in urine sediment by light microscopyOrdered By: Deon Dickerson on 04-17-2023 Epithelial cells.squamous LM Ql (Urine sed) 0 SEEN /hpf 5-10 [facility] Thin prep Papanicolaou smear with manual screeningOrdered By: Deon Dickerson on 04-17-2023 Thin prep Papanicolaou smear with manual screening 5 5-15 [facility] Thin prep Papanicolaou smear with manual screening 42 U/L 15-37 [facility] Urine blood detectionOrdered By: Deon Dickerson on 04-17-2023 RBC Ql (U) Negative Negative [facility] RBC Ql (U) 0 SEEN /hpf 0-5 [facility] Urine clarityOrdered By: María Dickerson on 04-17-2023 Clarity (U) Clear Clear [facility] Urine color determinationOrd ered By: Deon Dickerson on 04-17-2023 Color (U) Yellow Yellow [facility] Urine glucose detectionOrder ed By: Deon Dickerson on 04-17-2023 Glucose Ql (U) Normal mg/dl Normal [facility] Urine leukocyte esterase det ection by dipstickOrdered By: Deon Dickerson on 04-17-2023 Leukocyte esterase Test strip Ql (U) 25 /ul Negative [facility] Urine pHOrdered By: Deon go on 04-17-2023 pH (U) 6.0 [pH] 5.0 - 8.0 [facility] Urine sediment bacteria coun t by microscopy (number/high power field)Ordered By: Deon Dickerson on 04-17-2023 Bacteria LM.HPF (Urine sed) [#/Area] 0 /[HPF] None Seen [facility] Urine specific gravity measu rementOrdered By: Deon Dickerson on 04-17-2023 Specific gravity (U) [Rel density] 1.025 1.002-1.030 [facility] Urobilinogen Auto test strip Ql (U)Ordered By: Deon Dickerson on 04-17-2023 Urobilinogen Ql (U) Normal mg/dl Normal [facility] YANET DIAG W LESLIE BILATERALon 04-04-2023 [facility] CBC W Auto Differential pane l (Bld)on 03-20-2023 Basophils (Bld) [#/Vol] 0.05 10*3/uL <0.11 k/uL [facility] Basophils/100 WBC (Bld) 0.4 % [facility] Differential cell count method Nom (Bld) Auto [facility] Eosinophils (Bld) [#/Vol] 0.07 10*3/uL <0.46 k/uL [facility] Eosinophils/100 WBC (Bld) 0.6 % [facility] Erythrocyte distribution width (RBC) [Ratio] 12.1 % 11.5 - 15.0 % [facility] Hematocrit (Bld) [Volume fraction] 42.4 % 36.0 - 46.0 % [facility] Hemoglobin (Bld) [Mass/Vol] 13.5 g/dL 11.5 - 15.5 g/dL [facility] Immature granulocytes (Bld) [#/Vol] 0.11 10*3/uL High <0.10 k/uL [facility] Immature granulocytes/100 WBC (Bld) 0.9 % [facility] Lymphocytes (Bld) [#/Vol] 1.74 10*3/uL 1.00 - 4.00 k/uL [facility] Lymphocytes/100 WBC (Bld) 14.4 % [facility] MCH (RBC) [Entitic mass] 31.0 pg 26.0 - 34.0 pg [facility] MCHC (RBC) [Mass/Vol] 31.8 g/dL 30.5 - 36.0 g/dL [facility] MCV (RBC) [Entitic vol] 97.2 fL 80.0 - 100.0 fL [facility] Monocytes (Bld) [#/Vol] 1.15 10*3/uL High <0.87 k/uL [facility] Monocytes/100 WBC (Bld) 9.5 % [facility] Neutrophils (Bld) [#/Vol] 9.00 10*3/uL High 1.45 - 7.50 k/uL [facility] Neutrophils/100 WBC (Bld) 74.2 % [facility] Nucleated RBC (Bld) [#/Vol] <0.01 k/uL [facility] Nucleated RBC/100 WBC (Bld) [Ratio] 0.0 /100 WBC [facility] Platelet mean volume (Bld) [Entitic vol] 9.9 fL 9.0 - 12.7 fL [facility] Platelets (Bld) [#/Vol] 456 10*3/uL High 150 - 400 k/uL [facility] RBC (Bld) [#/Vol] 4.36 10*6/uL 3.90 - 5.2 0 m/uL [facility] WBC (Bld) [#/Vol] 12.12 10*3/uL High 3.70 - 11.00 k/uL [facility] Comprehensive metabolic 2000 panelon 03-20-2023 Albumin [Mass/Vol] 3.7 g/dL Low 3.9 - 4.9 g/dL [facility] ALP [Catalytic activity/Vol] 93 U/L 34 - 123 U/L [facility] ALT [Catalytic activity/Vol] 15 U/L 7 - 38 U/L [facility] Anion gap [Moles/Vol] 10 mmol/L 9 - 18 mmol/L [facility] AST [Catalytic activity/Vol] 31 U/L 13 - 35 U/L [facility] Bilirubin [Mass/Vol] 0.4 mg/dL 0.2 - 1 .3 mg/dL [facility] Calcium [Mass/Vol] 10.0 mg/dL 8.5 - 10. 2 mg/dL [facility] Chloride [Moles/Vol] 95 mmol/L Low 97 - 10 5 mmol/L [facility] CO2 [Moles/Vol] 33 mmol/L High 22 - 30 mmol/L [facility] Creatinine [Mass/Vol] 0.79 mg/dL 0.58 - 0.96 mg/dL [facility] Estimated Glomerular Filtration Rate 73 mL/min/1.73m >=60 mL/min/1.73 m [facility] Glucose [Mass/Vol] 104 mg/dL High 74 - 99 mg/dL [facility] Potassium [Moles/Vol] 4.1 mmol/L 3.7 - 5.1 mmol/L [facility] Protein [Mass/Vol] 7.2 g/dL 6.3 - 8.0 g/dL [facility] Sodium [Moles/Vol] 138 mmol/L 136 - 144 mmol/L [facility] Urea nitrogen [Mass/Vol] 14 mg/dL 7 - 21 mg/dL [facility] XR CHEST 2V FRONTAL/LATon [facility] XR Chest PA and Lateralon IMPRESSION: New airspace disease in the right lower lobe suspicious for pneumonia. Possible trace right pleural effusion. Instructional Writer: BOOGIE Transcribe Date/Time: Mar 20 2023 1:48P Dictated by : REEMA WRIGHT MD This examination was interpreted and the report reviewed and electronically signed by: REEMA WRIGHT MD on Mar 20 2023 1:49PM [facility] DIVISION OF RADIOLOGY * * *Final Report* * * DATE OF EXAM: Mar 20 2023 1:46PM WOX 5291 - XR CHEST 2V FRONTAL/LAT / PROCEDURE REASON: Acute cough * * * * Physician Interpretation * * * * EXAMINATION: CHEST RADIOGRAPH (2 VIEW FRONTAL & LATERAL) CLINICAL HISTORY: Acute cough MQ: XC2_6 EXAM DATE/TIME: 03/20/2023 1:46 PM COMPARISON: Chest x-ray 05/07/2014 RESULT: Lines, tubes, and devices: None. Lungs and pleura: There is new right lower lobe airspace disease. Unchanged elevation of the left hemidiaphragm. Possible trace right pleural effusion. No pneumothorax. Cardiomediastinal silhouette: Normal cardiomediastinal silhouette. Bones and soft tissues: Median sternotomy wires are noted. Remote healed right rib fractures. DIVISION OF RADIOLOGY Provider, [facility] - 03/20/2023 * * *Final Report* * * DATE OF EXAM: Mar 20 2023 1:46PM WOX 5291 - XR CHEST 2V FRONTAL/LAT / PROCEDURE REASON: Acute cough * * * * Physician Interpretation * * * * EXAMINATION: CHEST RADIOGRAPH (2 VIEW FRONTAL & LATERAL) CLINICAL HISTORY: Acute cough MQ: XC2_6 EXAM DATE/TIME: 03/20/2023 1:46 PM COMPARISON: Chest x-ray 05/07/2014 RESULT: Lines, tubes, and devices: None. Lungs and pleura: There is new right lower lobe airspace disease. Unchanged elevation of the left hemidiaphragm. Possible trace right pleural effusion. No pneumothorax. Cardiomediastinal silhouette: Normal cardiomediastinal silhouette. Bones and soft tissues: Median sternotomy wires are noted. Remote healed right rib fractures. IMPRESSION IMPRESSION: New airspace disease in the right lower lobe suspicious for pneumonia. Possible trace right pleural effusion. Instructional Writer: BOOGIE Transcribe Date/Time: Mar 20 2023 1:48P Dictated by : REEMA WRIGHT MD This examination was interpreted and the report reviewed and electronically signed by: REEMA WRIGHT MD on Mar 20 2023 1:49PM EST [facility] Rad[facility] Study observation (narrative) Elia lisa [facility] XR Chest PA and LateralOrder ed By: [facility] Provider on 03-20-2023 [facility] Absolute lymphocyte countOrd ered By: Ethan Donald on 02-12-2023 Lymphocytes Auto (Unsp spec) [#/Vol] 1.69 10*3/uL 0.83-4.51 [facility] Basophil percentageOrdered B y: Ethan Donald on 02-12-2023 Basophils/100 WBC (Bld) 0.8 % 0-1 [facility] Bilirubin [Mass/Vol] 0.40 mg/dL 0.20-1.00 [facility] Comment on above: For patients on eltr ombopag therapy, use of Dimension [place] TBIL is not recommended. Chloride [Moles/Vol] 104 mmol/L 98-107 [facility] Eosinophils/100 WBC (Bld) 3.4 % 0-5 [facility] Glucose [Mass/Vol] 136 mg/dL 74-106 [facility] Comment on above: Fasting Glucose resu lt greater than or equal to 126 mg/dL suggests DIABETES MELLITUS per A.D.A. criteria. Neutrophils (Bld) [#/Vol] 3.4 10*3/uL 2.0-7.7 [facility] Neutrophils/100 WBC (Bld) 57.5 % 47-70 [facility] Potassium [Moles/Vol] 3.7 mmol/L 3.5-5.1 [facility] Protein [Mass/Vol] 6.8 g/dL 6.4-8.2 [facility] Sodium [Moles/Vol] 140 mmol/L 136-145 [facility] WBC (Bld) [#/Vol] 5.9 10*3/uL 4.4-11.0 [facility] Blood erythrocytes count (nu mber/volume)Ordered By: Ethan Donald on 02-12-2023 RBC (Bld) [#/Vol] 4.21 10*6/uL 4.2-5.4 [facility] Blood hemoglobin measurement (mass/volume)Ordered By: Ethan Donald on 02-12-2023 Hemoglobin (Bld) [Mass/Vol] 13.6 g/dL 12.0-15.0 [facility] Blood lymphocytes/100 leukoc ytesOrdered By: Ethan Donald on 02-12-2023 Lymphocytes/100 WBC (Bld) 28.7 % 19-41 [facility] Blood monocytes/100 leukocyt esOrdered By: Ethan Donald on 02-12-2023 Monocytes/100 WBC (Bld) 9.3 % 0-10 [facility] Blood platelet mean volumeOr dered By: Ethan Donald on 02-12-2023 Platelet mean volume (Bld) [Entitic vol] 9.9 fL 6.2-12.0 [facility] Determination of erythrocyte mean corpuscular volume (MCV)Ordered By: Ethan Donald on 02-12-2023 MCV (RBC) [Entitic vol] 105.0 fL 81-99 [facility] Hematocrit Auto (Bld) [Volum e fraction]Ordered By: Ethan Donald on 02-12-2023 Hematocrit (Bld) [Volume fraction] 44.2 % 37-47 [facility] Laboratory - Chemistry and C hemistry - challengeOrdered By: Ethan Donald on 02-12-2023 ALP [Catalytic activity/Vol] 79 U/L 45-117 [facility] ALT [Catalytic activity/Vol] 23 U/L 13-56 [facility] CO2 [Moles/Vol] 31.0 mmol/L 21.0-32.0 [facility] Globulin (S) [Mass/Vol] 3.4 g/dL 2.2-4.2 [facility] Urea nitrogen/Creatinine [Mass ratio] 17.9 mg/mg 10-20 [facility] Laboratory - Hematology and Cell countsOrdered By: Ethan Donald on 02-12-2023 Erythrocyte distribution width (RBC) [Entitic vol] 50.3 fL 35.1-43.9 [facility] Erythrocyte distribution width (RBC) [Ratio] 13.0 % 11.6-14.6 [facility] Immature granulocytes/100 WBC (Bld) 0.300 % 0.0-0.9 [facility] Comment on above: IG% - Immature Granu locytes (promyelocytes, myelocytes and metamyelocytes) > 1% indicates that a LEFT SHIFT is Present. MCH (RBC) [Entitic mass] 32.3 pg 27.0-32.0 [facility] Nucleated RBC/100 WBC (Bld) [Ratio] 0 % 0-5 [facility] MCHC Auto (RBC) [Mass/Vol]Or dered By: Ethan Donald on 02-12-2023 MCHC (RBC) [Mass/Vol] 30.8 g/dL 32-36 [facility] No Panel InformationOrdered By: Ethan Donald on 02-12-2023 Estimated GFR (MDRD) Amer 72 mL/min >60 [facility] Comment on above: GFR Calc Estimated GFR (MDRD) Non-Af Amer 59 mL/min >60 [facility] Comment on above: Non- GFR Calc Thyroid Stimulating Hormone (TSH) 3.54 uIU/mL 0.358-3.74 [facility] Platelets bldOrdered By: Reji Donald on 02-12-2023 Platelets (Bld) [#/Vol] 170 10*3/uL 150-450 [facility] Serum or plasma albumin james urement (mass/volume)Ordered By: Ethan Donald on 02-12-2023 Albumin [Mass/Vol] 3.4 g/dL 3.2-5.0 [facility] Serum or plasma albumin/glob ulin mass ratioOrdered By: Ethan Donald on 02-12-2023 Albumin/Globulin [Mass ratio] 1.0 {ratio} 0.9-2.4 [facility] Serum or plasma calcium james urement (mass/volume)Ordered By: Ethan Donald on 02-12-2023 Calcium [Mass/Vol] 8.6 mg/dL 8.5-10.1 [facility] Serum or plasma creatinine m easurement (mass/volume)Ordered By: Ethan Donald on 02-12-2023 Creatinine [Mass/Vol] 0.95 mg/dL 0.55-1.02 [facility] Comment on above: The validity of the calculated GFR & GFRAA in patients over 70 years has not been determined. Clinical correlation is essential. Serum or plasma urea nitroge n measurement (mass/volume)Ordered By: Ethan Donald on 02-12-2023 Urea nitrogen [Mass/Vol] 17 mg/dL 7-18 [facility] Thin prep Papanicolaou smear with manual screeningOrdered By: Ethan Donald on 02-12-2023 Thin prep Papanicolaou smear with manual screening 25 U/L 15-37 [facility] Thin prep Papanicolaou smear with manual screening 5 5-15 [facility] Basophil percentageOrdered B y: Dr. Donald on 08-04-2022 Chloride [Moles/Vol] 106 mmol/L 98-107 [facility] Glucose [Mass/Vol] 105 mg/dL 74-106 [facility] Comment on above: Fasting Glucose resu lt from 100 to 125 mg/dL suggests IMPAIRED HOMEOSTASIS per A.D.A. criteria. Potassium [Moles/Vol] 4.0 mmol/L 3.5-5.1 [facility] Sodium [Moles/Vol] 144 mmol/L 136-145 [facility] Laboratory - Chemistry and C hemistry - challengeOrdered By: Dr. Donald on 08-04-2022 CO2 [Moles/Vol] 33.0 mmol/L 21.0-32.0 [facility] Urea nitrogen/Creatinine [Mass ratio] 23.9 mg/mg 10-20 [facility] No Panel InformationOrdered By: Dr. Donald on 08-04-2022 Estimated GFR (MDRD) Amer 100 mL/min >60 [facility] Comment on above: GFR Calc Estimated GFR (MDRD) Non-Af Amer 83 mL/min >60 [facility] Comment on above: Non- GFR Calc Thyroid Stimulating Hormone (TSH) 2.23 uIU/mL 0.358-3.74 [facility] Serum or plasma calcium james urement (mass/volume)Ordered By: Dr. Donald on 08-04-2022 Calcium [Mass/Vol] 9.7 mg/dL 8.5-10.1 [facility] Serum or plasma creatinine m easurement (mass/volume)Ordered By: Dr. Donald on 08-04-2022 Creatinine [Mass/Vol] 0.71 mg/dL 0.55-1.02 [facility] Comment on above: The validity of the calculated GFR & GFRAA in patients over 70 years has not been determined. Clinical correlation is essential. Serum or plasma urea nitroge n measurement (mass/volume)Ordered By: Dr. Donald on 08-04-2022 Urea nitrogen [Mass/Vol] 17 mg/dL 7- [facility] Thin prep Papanicolaou smear with manual screeningOrdered By: Dr. Donald on 08-04-2022 Thin prep Papanicolaou smear with manual screening 5 - [facility] CASE MANAGEMon 05-04-2022 CASE MANAGEM HNO ID: [id number] Author: Arlene Peña RN Service: ? Author Type: Registered Nurse Type: Care Mgt Progress Note Filed: 05/04/2022 2:45 PM Note Text: CARE MANAGEMENT DISCHARGE NOTE SERVICE DATE: 05/04/2022 SERVICE TIME: 2:44 PM LOS: 0 days Admission Date: 05/03/2022 DISCHARGE ARRANGEMENT (list agency and phone number) Discharge Arrangement: Home with Self Care CAREGIVER ASSESSMENT: Caregiver is ready, willing and able to meet the patient's needs as recommended by the inter-professional team:: No Caregiver needed Patient's transition needs and plan for meeting these needs: Home HANDOFF COMMUNICATION: Handoff to: Primary Care Physician Primary Care Physician Name/Phone: Dr. Ethan Donald- [phone] TRANSPORTATION ARRANGEMENTS: Transportation Arrangements: Car- Sister to transport Needs Prior to Discharge: Ready for Discharge Discharge order written for today. No home going needs identified at discharge. DeSat Study- Patient does not qualify for Home 02. SIGNATURE: Arlene Peña RN PATIENT NAME: Sydney Daigle DATE: May 04, 2022 TIME: 2:44 PM PAGER/CONTACT #: [phone] [facility] CASE MGT INIT [facility] 2021 CASE MGT INIT [facility] HNO ID: [id number] Author: Arlene Peña RN Service: ? Author Type: Registered Nurse Type: Care Mgt Initial Assessment Filed: 05/04/2022 10:59 AM Note Text: CARE MANAGEMENT: ASSESSMENT AND DISCHARGE PLAN SERVICE DATE: May 04, 2022 SERVICE TIME: 10:57 AM PRIMARY CARE PHYSICIAN: Ethan Donald MD Primary Contact: Extended Emergency Contact Information Primary Emergency Contact: Kristian Ruiz Address: [address] [place] [address] [facility] Relation: Sister ADMISSION STATUS: Observation Insurance Provider: MEDICARE A AND B NEEDS PRIOR TO DISCHARGE Needs Prior to Discharge: To Be Determined POTENTIAL TRANSITION PLANS To Be Determined Based on clinical judgement, Care Management will address the following needs: Medical Patient's perception of need for this admission: Elective surgery ADVANCE DIRECTIVES Current Advance Directive: Living Will In Chart: Yes Up To Date and Valid: Yes MS/BEHAVIOR Baseline Mental Status Prior to this Illness what was the patient's Baseline Mental Status?: Alert AND Oriented Prior to this illness, has anyone described the patient having any of the following behaviors?: Not Applicable Relationship of the informant to the patient:: Self READMISSION Last Discharge Date: 04/03/16 Is this Within the Past 30 days? From what level of care did patient present?: Home Last discharge within 30 days: No PATIENT SCREEN Patient/Polisher Sand Stated Goals: To have reduction in symptoms;To return home to life as it was Under the care of a PCP?: Yes, Internal Provider Provider Name: Dr. Ethan Donald Does the patient have transportation upon discharge?: Yes Use of any community resources?: No Does the patient have a stable and supportive living arrangement and home setting?: Yes Are there any potential risks or gaps identified by risk/functional/fall,et c. scores in the EMR?: No Any potential risks related to substance abuse and/or behavioral health?: No Based on clinical judgement, Care Management will address the following needs: Medical CAREGIVER ASSESSMENT Caregiver is ready, willing and able to meet the patient's needs as recommended by the inter-professional team:: No Caregiver needed Patient's transition needs and plan for meeting these needs: TBD MEDICAL Medical Needs: Two or more chronic diseases;Respiratory Insufficiency RT needs: Other RT Needs (Bipap) Health Issues Impacting Discharge Plan: Chronic Chronic: Diaphragmatic paresis, Heart Failure, Anemia, Aortic Valve Stenosis, BPPV Medication Adherance I am convinced of the importance of my prescription medication: 0 - Agree Completely I worry that my prescription medication will do more harm than good to me : 0 - Disagree Completely I feel financially burdened by my [id number]-fjnfog expenses for my prescription medication:: 0 - Disagree Completely Risk Score: 0 Patient is categorized as: Low risk < 2 SOCIAL Living Arrangements: Home Lives With: Alone Financial Resources: Retired Supportive Patient Contact:: Yes Contact Resources: Family Family Name/Phone: Sister Xavier Ruiz Is Patient Psychosocially Complex?: No Contact Resources: Family Family Name/Phone: Sister Xavier Ruiz Health Literacy How often do you need to have someone help you when you read instructions, pamphlets, or other written material from your doctor or pharmacy? : 1 - Never How confident are you filling out medical forms by yourself?: 1 - Extremely If Patient scores > 3 on either question, the following interventions were put into place:: Patient did not score > 3 on either question. Food Insecurity: No Food Insecurity Worried About Running Out of Food in the Last Year: Never true Ran Out of Food in the Last Year: Never true Financial Resource Strain: Low Risk Difficulty of Paying Living Expenses: Not hard at all Transportation Needs: No Transportation Needs Lack of Transportation (Medical): No Lack of Transportation (Non-Medical): No Housing Stability: Unknown Unable to Pay for Housing in the Last Year: No Number of Places Lived in the Last Year: Not on file Unstable Housing in the Last Year: No FUNCTIONAL How do you manage to accomplish the following: Independent: Ambulation;Bathe/Shower ;Dress;Meals/Meal Prep;Going to the bathroom;Medication Management;Transportati on to appointments/community Services/Needs//Equipme nt Does Patient Currently Receive Any Community Services or Home Care?: None Equipment Prior to Admission: Bi-level Positive Airway Pressure/Continuous Positive Airway Pressure DME Provider Information: [employer] Has the Patient Been in a Retirement Facility in the Past 30 days?: No No behavioral/cognitive discharge barriers identified at this time. FREEDOM OF CHOICE EXPLAINED: Are you interested in bedside delivery of your medicati (more content not included)... Normal [facility] CBC panel Auto (Bld)on 05-04 Erythrocyte distribution width (RBC) [Ratio] 13.1 % Normal 11.5-15.0 [facility] Comment on above: Order Comment: Speci men Type: BLOOD SPECIMENOrdering Facility: [facility] Address: [address] [place] [id number] Performed By: #### 5 8410-2 ####[facility] LABORATORYCLIA [id number] [place] [address] Hematocrit (Bld) [Volume fraction] 37.7 % Normal 36.0-46.0 [facility] Comment on above: Order Comment: Speci men Type: BLOOD SPECIMENOrdering Facility: [facility] Address: [address] [place] [address] Performed By: #### 5 8410-2 ####[facility]ORATORYCLIA [id number] [address] Hemoglobin (Bld) [Mass/Vol] 11.7 g/dL Normal 11.5-15.5 [facility] Comment on above: Order Comment: Speci men Type: BLOOD SPECIMENOrdering Facility: [facility] Address: [address] [place] [address] Performed By: #### 5 8410-2 ####[facility] LABORATORYCLIA [id number] [address] MCH (RBC) [Entitic mass] 31.3 pg Normal 26.0-34.0 [facility] Comment on above: Order Comment: Speci men Type: BLOOD SPECIMENOrdering Facility: [facility] Address: [address] [place] [address] Performed By: #### 5 8410-2 ####[facility] LABORATORYCLIA [id number] [address] MCHC (RBC) [Mass/Vol] 31.0 g/dL Normal 30.5-36.0 [facility] Comment on above: Order Comment: Speci men Type: BLOOD SPECIMENOrdering Facility: [facility] Address: [address] [place] [address] Performed By: #### 5 8410-2 ####[facility] LABORATORYCLIA [id number] [address] MCV (RBC) [Entitic vol] 100.8 fL High 80.0-100.0 M [facility] Comment on above: Order Comment: Speci men Type: BLOOD SPECIMENOrdering Facility: [facility] Address: [address] [place] [address] Performed By: #### 5 8410-2 ####[facility] LABORATORYCLIA [id number] [place] [address] [place] Nucleated RBC (Bld) [#/Vol] 10*3/uL Normal <0.01 [facility] Comment on above: Order Comment: Speci men Type: BLOOD SPECIMENOrdering Facility: [facility] Address: [address] [place] [address] Performed By: #### 5 8410-2 ####[facility] LABORATORYCLIA [id number] [place] [address] [place] Platelet mean volume (Bld) [Entitic vol] 9.7 fL Normal 9.0-12.7 [facility] Comment on above: Order Comment: Speci men Type: BLOOD SPECIMENOrdering Facility: [facility] Address: [address] [place] [address] Performed By: #### 5 8410-2 ####[facility] LABORATORYCLIA [id number] [address] [place] Platelets (Bld) [#/Vol] 236 10*3/uL Normal 150-400 [facility] Comment on above: Order Comment: Speci men Type: BLOOD SPECIMENOrdering Facility: [facility] Address: [address] [place] [address] Performed By: #### 5 8410-2 ####[facility] LABORATORYCLIA [id number] [address] [place] RBC (Bld) [#/Vol] 3.74 10*6/uL Low 3.90-5.20 [facility] Comment on above: Order Comment: Speci men Type: BLOOD SPECIMENOrdering Facility: [facility] Address: [address] [place] [address] Performed By: #### 5 8410-2 ####[facility] LABORATORYCLIA [id number] [address] WBC (Bld) [#/Vol] 9.97 10*3/uL Normal 3.70-11.00 [facility] Comment on above: Order Comment: Speci men Type: BLOOD SPECIMENOrdering Facility: [facility] Address: [address] [place], [place] [address], [place] [address] Performed By: #### 5 8410-2 ####[facility] LABORATORYCLIA [id number] [place] [address] [place] CNCOon 05-04-2022 CNCO Letter Text Normal [facility] CNDSon 05-04-2022 CNDS HNO ID: [id number] Author: Trudy Beavers PA-C Service: General Surgery Author Type: Physician Electrical Instrument Repairer Type: Discharge Summary Filed: 05/04/2022 2:42 PM Note Text: Attestation signed by Chino Ambrose MD at 05/04/2022 7:24 PM Attending Note I have personally performed a face to face assessment of the patient and have reviewed the VIRGIL note. I performed a substantive portion of the visit including all aspects of the following. My rosa findings include: Other additions or changes: None Signature: Chino Ambrose MD Date: 05/04/2022 Time: 7:24 PM DISCHARGE SUMMARY PATIENT NAME: Sydney Daigle Code Status: Not on file Highest Readmission Risk Score: 10 The 30 day readmissions risk score is derived from an internally validated risk model which evaluates patient level characteristics, utilization history, medication orders and lab results up until the day of discharge. Patients with a score of 40 or above are considered highest risk for readmission. Specific patient level drivers will be listed at the bottom of the summary. Admission Information Admission Information ADMIT DATE: 05/03/2022 DISCHARGE DATE: 05/04/2022 MY DOCTORS AND MEDICAL TEAM: My Main Hospital Doctor: Chino Ambrose MD Primary Care Provider: Ethan Donald MD My Medical Team Members: Treatment Team: Attending Provider: Chino Ambrose MD MY CONDITION AT DISCHARGE: Stable REASON I WAS IN THE HOSPITAL: lumpectomy with SLNB SUMMARY OF WHAT HAPPENED WHILE I WAS IN THE HOSPITAL: You came into the hospital for a scheduled lumpectomy with sentinel node dissection with Dr. Ambrose . You were taken to the operating room for suregery, which went as expected. You were recovered and transferred to the nursing floor for continued observation due to low O2 saturation. You required NC at 2 L through the night. Respiratory was requested to do a de saturation study. You passed your de saturation study. At discharge you were tolerating your diet and pain was controlled. OTHER PROBLEMS/DIAGNOSIS: Principal Problem: Hypoxia Resolved Problems: * No resolved hospital problems. * OPERATIONS PERFORMED WHILE IN THE HOSPITAL: lumpectomy with SLNB IMPORTANT TEST/PROCEDURES: No procedures performed TEST RESULTS NOT AVAILABLE AT THIS TIME: Pathology results Discharge Disposition Discharge Disposition: Home With Self Care Activity When You Leave the Hospital Lifting is restricted to: No lifting >10 lbs until post op appointment May shower May shower; no baths May use stairs No driving for: While on narcotic pain medication No prolonged bedrest, longer than 8 hours in a 24 hour period No walking restrictions Diet Instructions Drink 6 to 8 glasses of fluids per day Resume your pre-hospital diet For Pain When You Leave the Hospital Apply a covered cold pack to the area 20 min on 20 min off for first 48 hours; as needed for pain Can be continued beyond 48 hours Use acetaminophen (Tylenol) as recommended on the bottle Use ibuprofen (Motrin, Advil) as recommended on the bottle Wound/Surgical Site Care Keep your dressing clean and dry Remove on Sunday Some bleeding from the wound/surgical site can be expected. If excessive, see a doctor at once Wash your hands frequently, especially before touching your incision, after using restroom and before eating Call Your Doctor If There is an unusual odor from the wound area There is severe pain at the operative site You have lightheadedness, fainting, or confusion You have pain and swelling in your legs, especially if it is only on one side and not the other You have persistent nausea/vomiting over 24 hours You have redness, swelling, pus or drainage from the wound Your temperature is greater than 101F Additional Provider to Provider Information: S/p lumpectomy Treatment Team: Attending Provider: Chino Ambrose MD Transitions of Care Critical Issues: none LABS AND PROCEDURES PENDING AT DISCHARGE: Pathology Results (breast tissue and lymph nodes) FOLLOW-UP APPOINTMENTS ALREADY SCHEDULED WITH A [facility] PROVIDER: Future Appointments Date Time Provider Department Center 05/11/2022 10:30 AM Chino Ambrose MD [facility] [place] 08/14/2022 3:00 PM Ethan Donald MD [facility] Allergen Reactions Aspirin Other: See Comments bleeding duodenal ulcer Niacin Other: See Comments hot flashing Simvastatin BODYACHES Vicodin [Hydrocodon* GI Upset DISCHARGE MEDICATION: Current Discharge Medication List CONTINUE these medications which have NOT CHANGED levothyroxine (SYNTHROID) 75 mcg Take 75 mcg by mouth once daily. Qty: 90 tablet Refills: 3 Associated Diagnoses:Acquired hypothyroidism furosemide (LAS (more content not included)... Normal [facility] Comprehensive metabolic 2000 panelon 05-04-2022 Albumin [Mass/Vol] 3.2 g/dL Low 3.9-4.9 [facility] Comment on above: Order Comment: Speci men Type: BLOOD SPECIMENOrdering Facility: [facility] Address: [address] [place] [address] Performed By: #### 2 4323-8 ####[facility] LABORATORYCLIA [id number] [address] STATES OF [facility] ALP [Catalytic activity/Vol] 77 U/L Normal 34-123 [facility] Comment on above: Order Comment: Speci men Type: BLOOD SPECIMENOrdering Facility: [facility] Address: [address] [address] Performed By: #### 2 4323-8 ####[facility] LABORATORYCLIA [id number] [address] ALT [Catalytic activity/Vol] 7 U/L Normal 7-38 [facility] Comment on above: Order Comment: Speci men Type: BLOOD SPECIMENOrdering Facility: [facility] Address: [address] [place] [address] Performed By: #### 2 4323-8 ####[facility] LABORATORYCLIA [id number] [place] [address] [place] Anion gap [Moles/Vol] 6 mmol/L Low 9-18 [facility] Comment on above: Order Comment: Speci men Type: BLOOD SPECIMENOrdering Facility: [facility] Address: [address] [address] Performed By: #### 2 4323-8 ####[facility] LABORATORYCLIA [id number] [address] AST [Catalytic activity/Vol] 18 U/L Normal 13-35 [facility] Comment on above: Order Comment: Speci men Type: BLOOD SPECIMENOrdering Facility: [facility] Address: [address] [place] [address] Performed By: #### 2 4323-8 ####DA[facility] LABORATORYCLIA [id number] [address] [place] Bilirubin [Mass/Vol] 0.3 mg/dL Normal 0.2-1.3 [facility] Comment on above: Order Comment: Speci men Type: BLOOD SPECIMENOrdering Facility: [facility] Address: [address] [place] [address] Performed By: #### 2 4323-8 ####[facility] LABORATORYCLIA [id number] [address] Calcium [Mass/Vol] 8.5 mg/dL Normal 8.5-10.2 [facility] Comment on above: Order Comment: Speci men Type: BLOOD SPECIMENOrdering Facility: [facility] Address: [address] [address] Performed By: #### 2 4323-8 ####DA[facility] LABORATORYCLIA [id number] [address] [place] Chloride [Moles/Vol] 101 mmol/L Normal 97-105 [facility] Comment on above: Order Comment: Speci men Type: BLOOD SPECIMENOrdering Facility: [facility] Address: [address] [address] Performed By: #### 2 4323-8 ####DA[facility] LABORATORYCLIA [id number] [place] [address] [place] CO2 [Moles/Vol] 33 mmol/L High 22-30 [facility] Comment on above: Order Comment: Kalpanai men Type: BLOOD SPECIMENOrdering Facility: [facility] Address: [address] [address] Performed By: #### 2 4323-8 ####[facility] LABORATORYCLIA [id number] [address] [place] [facility] Creatinine [Mass/Vol] 0.70 mg/dL Normal 0.58-0.96 [facility] Comment on above: Order Comment: [place] men Type: BLOOD SPECIMENOrdering Facility: [facility] Address: [address] [place] [address] Performed By: #### 2 4323-8 ####[facility] LABORATORYCLIA [id number] [address] ESTIMATED GLOMERULAR FILTRATION RATE 85 mL/min/1.73m??? Normal >=60 [facility] Comment on above: Order Comment: Speci men Type: BLOOD SPECIMENOrdering Facility: [facility] Address: [address] [place] [address] Result Comment: Megan mated Glomerular Filtration Rate (eGFR) is calculated using the 2020 CKD-EPI creatinine equation. This equation utilizes serum creatinine, sex, and age as parameters. The creatinine assay has traceable calibration to isotope dilution-mass spectrometry. Refer to KDIGO guidelines for clinical interpretation. In patients with unstable renal function, e.g. those with acute kidney injury, the eGFR may not accurately reflect actual GFR. Performed By: #### 2 4323-8 ####DA[facility] LABORATORYCLIA [id number] [place] [address] [place] Glucose [Mass/Vol] 115 mg/dL High 74-99 [facility] Comment on above: Order Comment: Jyoti men Type: BLOOD SPECIMENOrdering Facility: [facility] Address: [address] [place] [address] Result Comment: The [place] Diabetes [employer] (ADA) provides guidance for cutoff values for fasting glucose and random glucose. The ADA defines fasting as no caloric intake for at least 8 hours. Fasting plasma glucose results between 100 to 125 mg/dL indicate increased risk for diabetes (prediabetes). Fasting plasma glucose results greater than or equal to 126 mg/dL meet the criteria for diagnosis of diabetes. In the absence of unequivocal hyperglycemia, results should be confirmed by repeat testing. In a patient with classic symptoms of hyperglycemia or hyperglycemic crisis, random plasma glucose results greater than or equal to 200 mg/dL meet the criteria for diagnosis of diabetes. Reference: Standards of Medical Care in Diabetes 2016, [place] [employer]. Diabetes Care. 2016.39(Suppl 1). Performed By: #### 2 4323-8 ####DAVIS LABORATORYCLIA [id number] [place] [address] [place] Potassium [Moles/Vol] 3.8 mmol/L Normal 3.7-5.1 [facility] Comment on above: Order Comment: Jyoti martin Type: BLOOD SPECIMENOrdering Facility: [facility] Address: [address] [place] [address] Performed By: #### 2 4323-8 ####[facility] LABORATORYCLIA [id number] [place] [address] [place] Protein [Mass/Vol] 5.9 g/dL Low 6.3-8.0 [facility] Comment on above: Order Comment: Jyoti martin Type: BLOOD SPECIMENOrdering Facility: [facility] Address: [address] [place] [address] Performed By: #### 2 4323-8 ####DAVIS LABORATORYCLIA [id number] [place] [address] [place] Sodium [Moles/Vol] 140 mmol/L Normal 136-144 [facility] Comment on above: Order Comment: [place] men Type: BLOOD SPECIMENOrdering Facility: [facility] Address: [address] [place] [address] Performed By: #### 2 4323-8 ####DAVIS LABORATORYCLIA [id number] [place] [address] [place] Urea nitrogen [Mass/Vol] 10 mg/dL Normal 7-21 [facility] Comment on above: Order Comment: [place] men Type: BLOOD SPECIMENOrdering Facility: [facility] Address: [place] [address] Performed By: #### 2 4323-8 ####DAVIS LABORATORYCLIA [id number] [place] [address] [facility] ALLIED HEALTHon 05-03-2022 ALLIED HEALTH HNO ID: [id number] Author: HUMBERTO Russell Service: Nuclear Medicine Author Type: Technologist Type: Allied Health Filed: 05/03/2022 9:29 AM Note Text: RADIOLOGY SERVICE PROGRESS NOTE SERVICE DATE: 05/03/2022 SERVICE TIME: 9:28 AM PATIENT IDENTITY VERIFICATION COMPLETED USING TWO (2) STANDARD IDENTIFIERS: Name and Date of confirmed by patient verbally and Name and Date of confirmed by identification band FALL SCREENING: Has the patient had 2 falls in the last year or 1 fall with injury or currently using an Ambulatory Assistive Device (Walker, Cane, Wheelchair, Crutches, etc.)? Inpatient: Screened on floor PATIENT GENDER DATA: .female : No ALLERGIES: Reviewed and unchanged MEDICATIONS REVIEWED: Not applicable PATIENT RELEVANT IMPLANT DATA REVIEWED: Not Applicable CREATININE: Creatinine Date Value Ref Range Status 08/19/2020 0.82 0.6 - 1.3 MG/DL Final 12/10/2018 0.88 0.6 - 1.3 MG/DL Final P.O.C.T. RESULTS: N/A May 03, [address] PERFORMED: No IV SITE: Inpatient - refer to LDA documentation POST EXAM PIV STATUS: Not applicable PROCEDURE TYPE: NM INJECT: sentinel node. 480.3 microcuries Tc99m SULFUR COLLOID . No other medications given.. ADMINISTRATION TIME: 08:18 PATIENT DISCHARGED TO: Patient taken to IP transport area for return to RNF/ICU/ED. A Diagnostic radioactive procedure has taken place, with no further precautions necessary other than routine body substance precautions. More information regarding radiation safety can be found using this link: [email or web address] [email or web address] [email or web address] SIGNATURE: HUMBERTO Russell PATIENT NAME: Sydney Daigle DATE: May 03, 2022 TIME: 9:28 AM PAGER/CONTACT #: [facility] ANES POSTPROC EVALon 022 ANES POSTPROC EVAL HNO ID: [id number] Author: Lashae Oshea MD Service: ? Author Type: Anesthesiologist Type: Anesthesia Postprocedure Evaluation Filed: 05/03/2022 4:38 PM Note Text: POST ANESTHESIA EVALUATION NOTE : 1935 Procedure Summary Date: 05/03/22 Room / Location: [place] [address] / [place] Anesthesia Start: 1249 Anesthesia Stop: 1451 Procedures: LUMPECTOMY BREAST (Left: Breast) INTRAOPERATIVE ID OF SENTINEL LYMPH NODE(S) INCL'D INJECTION OF NON-RAD DYE WHEN PERFORMED (Left: Breast) BIOPSY NODE SENTINEL AXILLARY (Left: Axilla) Diagnosis: Malignant neoplasm of overlapping sites of left breast in female, estrogen receptor positive (HCC) (Malignant neoplasm of overlapping sites of left breast in female, estrogen receptor positive (HCC) [C50.812, Z17.0]) Surgeons: Chino Ambrose MD Responsible Provider: Abdirashid Smith MD Anesthesia Type: general ASA Status: 3 Anesthesia Type: general Airway Type: LMA Last Vitals Vitals Value Taken Time BP 147/56 05/03/22 1630 Temp 36.1 ?C (97 ?F) 05/03/22 1455 Pulse 80 05/03/22 1637 Resp 21 05/03/22 1637 SpO2 94 % 05/03/22 1637 Vitals shown include unvalidated device data. Post Anesthesia Patient Status Patient Evaluation: PACU. PACU/ICU Patient Condition: stable. Anticipated Disposition: phase 2 then home. Neurological Status: aware and responsive. Pulmonary Status: breathing comfortably on room air Airway Control: returned to baseline unsupported. Cardiovascular Status: stable. Pain Management: clinically adequate - multimodal analgesia pain management approach Postoperative Hydration: acceptable. Intraoperative Events: no significant anesthesia events Post Operative Nausea/Vomiting Status: no significant post operative nausea or vomiting Recommendation: continue current plan of care. Anesthesia Observations No Documentation SIGNATURE: Lashae Oshea MD PATIENT NAME: Sydney Daigle DATE: May 03, 2022 TIME: 4:38 PM CSN: [id number] [facility] ANES PRE-OPon 05-03-2022 [facility] PRE-OP HNO ID: [id number] Author: Abdirashid Smith MD Service: Anesthesiology Author Type: Anesthesiologist Type: Anesthesia Preprocedure Evaluation Filed: 05/03/2022 11:01 AM Note Text: ANESTHESIOLOGY DAY OF SURGERY NOTE : 1935 Procedure Information Date/Time: 05/03/22 1143 Procedures: PLACEMENT OF BREAST LOCALIZATION DEVICE(S) PERCUTANEOUS; FIRST LESION, ULTRASOUND GUIDANCE (Left) - Per Halie doing the ultraosund guided needle placement himself + would like ultrasound from the radiology department in the [place] LUMPECTOMY BREAST (Left) - Per Halie doing the ultraosund guided needle placement himself + would like ultrasound from the radiology department in the [place] INTRAOPERATIVE ID OF SENTINEL LYMPH NODE(S) INCL'D INJECTION OF NON-RAD DYE WHEN PERFORMED (Left) - Per Halie doing the ultraosund guided needle placement himself + would like ultrasound from the radiology department in the [place] BIOPSY NODE SENTINEL AXILLARY (Left) - Per Halie doing the ultraosund guided needle placement himself + would like ultrasound from the radiology department in the OR INJECTION PROCEDURE RADIOACTIVE TRACER FOR IDENTIFICATION OF SENTINEL NODE (Left) - Per Halie doing the ultraosund guided needle placement himself + would like ultrasound from the radiology department in the [place] Surgeons: Chino Ambrose MD Estimated body mass index is 28.72 kg/m? as calculated from the following: Height as of this encounter: 157.5 cm (5' 2). Weight as of this encounter: 71.2 kg (157 lb). Most recent hematocrit and potassium results: Hematocrit 45.6 09/19/2012 K 3.6 08/19/2020 Relevant Problems ANESTHESIA (+) Obstructive sleep apnea syndrome CARDIO (+) Benign hypertension (+) Chronic diastolic congestive heart failure (HCC) (+) Secondary pulmonary arterial hypertension (HCC) (+) Ventricular ectopic beats ENDO (+) Hypothyroidism -RENAL (+) Renal stone NEURO-PSYCH (+) Personal history of colonic polyps PULMONARY (+) Obstructive sleep apnea syndrome I - PHYSICAL EVALUATION AIRWAY Patient intubated: No. Mallampati: II. TM distance: >3 FB. Neck ROM: full ROM without neurological symptoms. Mouth opening: adequate. Short neck: no. Thick neck: no Blake present: no DENTAL Dental findings: teeth intact and poor dentition. Additional exam findings: no II - ANESTHESIA PLAN ASA Score: 3 Anesthetic Plan: general Airway type: LMA NPO Status: adequate Beta Evelio Monitoring Plan Monitoring plan: Standard ASA. Post Procedure Analgesic Plan Postoperative analgesic plan: parenteral or oral opioids and multimodal analgesia. Patient / Surrogate agrees to blood products: yes DNR status not reviewed with patient and/or family prior to surgery. Significant changes in the patient condition since the History and Physical, not otherwise documented in primary service progress note: no. Potential Anesthesia issues that may suggest increased risk of complications or contraindication to planned procedure: none. Vitals Value Taken Time BP 151/60 05/03/22715 Pulse 73 05/03/22715 Resp 16 05/03/22715 Temp 36.2 ?C (97.2 ?F) 05/03/22715 SpO2 93 % 05/03/22715 Facility-Administered Medications as of 05/03/2022 Medication Dose Route Frequency - lidocaine (PF) 10 mg/mL (1 %) 1-2 mg injection (XYLOCAINE) 0.1-0.2 mL INTRADERMAL PRN - lactated ringers iv infusion 5-30 mL/hr INTRAVENOUS CONTINUOUS - NaCl 0.9% iv flush bag 20 mL INTRAVENOUS PRN - ceFAZolin iv piggyback 2 g in D5W (iso-osmotic) 100 mL (ANCEF) 2 g INTRAVENOUS Pre-Op Once Outpatient Medications as of 05/03/2022 Medication Sig - levothyroxine (SYNTHROID) 75 mcg tablet Take 1 tablet by mouth once daily. - furosemide (LASIX) 40 mg tablet Take 1 tablet by mouth twice daily. (Patient taking differently: Take 40 mg by mouth once daily.) - metoprolol succinate ER (TOPROL XL) 25 mg 24 hr tablet Take 1 tablet by mouth once daily. - meclizine (ANTIVERT) 25 mg tab Take 25 mg by mouth as needed. - potassium chloride ER (KLOR-CON M10) 10 mEq tablet Take 1 tablet by mouth twice daily. - Cholestyramine-Aspartam e (PREVALITE) 4 gram powder Take 4 g by mouth once daily. (Patient taking differently: Take 4 g by mouth as needed. PRN) - Natalia-3 Fatty Acids, FISH OIL, (FISH OIL) 360-1,200 mg cap Take 1 capsule by mouth twice daily with meals. (Patient taking differently: Take 1 capsule by mouth once daily.) - ONE-A-DAY WOMENS FORMULA TAB Take one(1) tablet daily. I have interviewed and examined the patient. I have reviewed the medical record and/or the pre-anesthesia evaluation, pertinent labs, and test results. This contains updated information obtained within 48 hours of Surgery/Procedure. SIGNATURE: Abdirashid Smith MD PATIENT NAME: Sydney Daigle DATE: May 03, 2022 TIME: 11:01 AM CSN: [id number] [facility] BRIEF OP NOTon 05-03-2022 BRIEF OP NOT HNO ID: [id number] Author: Chino Ambrose MD Service: General Surgery Author Type: Physician Type: Brief Op Note Filed: 05/03/2022 2:47 PM Note Text: BRIEF OPERATIVE NOTATION FOR SURGICAL PROCEDURE. Sydney Daigle 1935 [id number] female LOG ID: [id number] Surgery/Procedure Date: 05/03/2022 Incision/Procedure Start Time: 1:21 PM Incision Close/Procedure End Time: 2:39 PM Surgeon(s)/Proceduralis t(s) and Electrical Instrument Repairer(s): Surgeon(s) and Role: * Chino Ambrose MD - Primary Physician Electrical Instrument Repairer: Alexandra Mojica PA-C REFERRING PHYSICIAN: Outpatient DEPT: [facility] PROVIDER: Cortney POS: [id number] ANESTHESIA: General ASA CLASS: 3E - severe emergency DIAGNOSIS: left breast cancer PROCEDURE: left PARTIAL MASTECTOMY/ LUMPECTOMY, WITH SENTINEL LYMPH NODE BIOPSY, Radiotracter identification - [id number], , [id number], [id number], [id number] IVF: 1100 EBL: 75 Specimens: 3 sentinel nodes ( 1 node was cold and sent separately) partial mastectomy ADDITIONAL DIAGNOSES: FINDINGS: hottest node 500 counts, 1st node 330, addition node not active COMPLICATIONS: None PMHx - 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 History of aortic valve replacement with bioprosthetic valve Hyperparathyroidism, unspecified (HCC) parathyroidectomy 2007 Hypothyroidism 08/19/2010 Nocturnal hypoxia 05/12/2013 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 - [id number] Chino Ambrose MD [facility] HISTORY PHYSICALon HISTORY PHYSICAL HNO ID: [id number] Author: Chino Ambrose MD Service: General Surgery Author Type: Physician Type: HANDP Filed: 05/03/2022 11:10 AM Note Text: HISTORY AND PHYSICAL - BREAST CANCER Sydney Daigle 1935 March 30, 2022 REFERRING PHYSICIAN: Self CHIEF COMPLAINT: BREAST CANCER - LEFT - INVASIVE DUCTAL CARCINOMA HPI: The patient is a 86 year old female with a complaint of a palpable breast mass. The patient notes a mass in the central portion of her left breast. The patient has noticed this mass for some time. The patient had a mammogram and ultrasound on March 15, 2022 which demonstrated: There is a 6 cm irregular mass in the left breast at 12 o'clock anterior depth. This correlates as palpated. There is nipple retraction associated with the mass. No other significant masses, calcifications, or other findings are seen in either breast. IMPRESSION: HIGHLY SUGGESTIVE OF MALIGNANCY - APPROPRIATE ACTION SHOULD BE TAKEN The 6 cm irregular mass in the left breast resembles carcinoma and is highly suggestive of malignancy. An ultrasound guided biopsy is recommended. LIMITED ULTRASOUND OF RIGHT BREAST AND LIMITED ULTRASOUND OF LEFT BREAST AND AXILLA: 03/15/2022 RESULT: Comparison is made to exams dated: 08/24/2014 mammogram and 08/18/2011 mammogram - [facility]. Color flow and real-time ultrasound of the right breast and color flow and real-time ultrasound of the left breast 12 o'clock, retroareolar, and axilla regions were performed. Aj scale images of the real-time examination were reviewed. There is 4.7 cm x 4.2 cm x 4.4 cm irregular mass in the left breast at 12 o'clock anterior depth 2 cm from the nipple. This irregular mass is hypoechoic. This correlates as palpated and with mammography findings. There also is a lymph node with focal cortical thickening in the left axillary tail. IMPRESSION: HIGHLY SUGGESTIVE OF MALIGNANCY - APPROPRIATE ACTION SHOULD BE TAKEN The 4.7 cm x 4.2 cm x 4.4 cm irregular mass in the left breast at 12 o'clock anterior depth resembles carcinoma and is highly suggestive of malignancy. An ultrasound guided biopsy or a surgical consult are recommended. The lymph node with focal cortical thickening in the left axillary tail is suspicious of malignancy. An ultrasound guided biopsy is recommended. She does not perform a self breast exam routinely. She notes thickening of the nipple. She notes nipple discharge. She notes no axillary masses. She notes no family history of breast problems. She notes no significant breast trauma or breast difficulties in the past. Her prior mammogram was in 2014 and was unremarkable The patient is being seen by me at the request of Dr. Ethan Donald MD for my opinion and advice regarding a left breast.. I performed left ultrasound-guided core breast biopsy and biopsy of suspicious axillary lymph node on March 22, 2022. Pathology returned as: NAL DIAGNOSIS A. Lymph node, left axillary, #1, ultrasound-guided core biopsy: ---Fragments of benign lymph node. B. 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 Breast Biomarkers RESULTS: Estrogen Receptor (ER) Positive 90 % Stain intensity: strong Internal controls: absent External controls: appropriately stained Progesterone Receptor (CA) Positive 1 % Stain intensity: moderate Internal controls: absent External controls: appropriately stained HER2 (ERBB2) IMMUNOHISTOCHEMISTRY ASSAY Interpretation: NEGATIVE for HER2 (ERBB2) Expression Score: 1+ The patient has multiple comorbidities including congestive heart failure replaced aortic valve and somewhat limited performance status. I spoke with Dr. Bowen who felt that the patient will be a poor candidate for neoadjuvant treatment and given the fact that the lymph node was negative we would elect to proceed with definitive surgical intervention including sentinel lymph node biopsy. Given the size of the tumor we felt obtaining a PET CT scan to assess for metastatic disease even in the face of a negative axillary lymph node core biopsy was reasonable. The patient returned today for results of biopsy. She had anticipated this would be breast cancer. We extensively discussed her diagnosis and at the last visit discussed her surgical options including breast conservation surgical procedures, mastectomy without reconstruction and mastectomy with reconstruction. The patient has elected to undergo a left side possible needle localization biopsy/lumpectomy with sentinel lymph node biopsy with possible axillary dissection. The patient is being seen by me today at the request of Dr. Ethan Donald MD for my opinion and advice regarding locally advanced left breast cancer. PAST MEDICAL HISTORY PAST MEDICAL HISTORY Diagnosis (more content not included)... Normal [facility] NM INJ SENT NODE BREAST LTon 05-03-2022 NM INJ SENT NODE BREAST LT * * *Final Report* * * DATE OF EXAM: May 03 2022 9:15AM MARIXA 2191 - NM INJ SENT NODE BREAST LT / PROCEDURE REASON: multiple diagnoses * * * * Physician Interpretation * * * * BREAST LYMPHATIC MAPPING (05/03/2022): HISTORY: Breast cancer. TECHNIQUE: 480.3 microcuries of filtered technetium-99m sulfur colloid were injected in three aliquots into the retroareolar tissue of the left breast. Injection performed by Dr Watkins RESULT: No imaging was obtained. IMPRESSION: Left breast radiotracer injection. Instructional Writer: PSCB Transcribe Date/Time: May 03 2022 10:03A Dictated by : DARLENE ORNELAS MD This examination was interpreted and the report reviewed and electronically signed by: DARLENE ORNELAS MD on May 03 2022 10:11AM EST [id number] Normal [facility] NM INJ SENTINEL NODE BREAST LTon 05-03-2022 [facility] OPERATIVE NOon 05-03-2022 OPERATIVE NO HNO ID: [id number] Author: Chino Ambrose MD Service: General Surgery Author Type: Physician Type: Operative Report Filed: 05/04/2022 7:18 PM Note Text: [facility] - Operative Report SYDNEY DAIGLE : 1935 AGE: 87. SEX: F PATIENT TYPE: V HOSP SVC: GENS LOCATION: [facility] ATTENDING PHYSICIAN: CHINO AMBROSE M.D. CSN NUMBER: [id number] DATE OF SURGERY/PROCEDURE: 05/03/2022 INCISION/PROCEDURE START TIME: 1:21 p.m. INCISION CLOSE/PROCEDURE END TIME: 2:39 p.m. PREOPERATIVE DIAGNOSIS: Bulky left breast cancer, just below the nipple areolar region, negative nodes per PET-CT scan and lymph node biopsy in office. POSTOPERATIVE DIAGNOSIS: Successful partial mastectomy of large bulky breast cancer, sentinel lymph node biopsy. SURGEON: Chino Ambrose M.D. SKILLED LABOR: Alexandra Mojica, ADITI. SURGERY/PROCEDURE: left partial mastectomy, lumpectomy using ultrasound to guide the deeper margin and sentinel lymph node biopsy with radiotracer and Lymphazurin injection. ANESTHESIA: LMA. LOG ID#: [id number]. ANESTHESIOLOGIST: Abdirashid Smith. ASA: 3. INTRAVENOUS FLUIDS: 1100 mL. ESTIMATED BLOOD LOSS: 75 mL. FINDINGS: As described above. SPECIMEN: 3 separate sentinel nodes sent. The 1st sentinel node was encountered with approximately 330 counts. The 2nd sentinel node was cold and sent separately. The 3rd sentinel node had 500 counts. No additional activity greater than 50 to 60 counts were noted in the axilla. Partial mastectomy was performed with a single suture marking the lateral aspect of the excision and a double suture marking the cranial or head end of the partial mastectomy specimen. DRAINS: None. COMPLICATIONS: None. DISPOSITION: Patient was taken to recovery in stable condition. DESCRIPTION OF PROCEDURE: Patient's left breast was marked in the holding area. The patient concurred this as the planned operative site. She had a radiotracer injection performed by the radiologist covered under separate dictation. Sign-in was performed, verifying patient, site, procedure, position, critical nursing information, VTE, and antibiotic prophylaxis. Patient received 2 g of Ancef and had sequential compression devices placed. She was brought back to the operative suite. Following LMA anesthesia, Lymphazurin blue was injected into Sappey plexus of the breast and massaged. 50:50 mixture of Lymphazurin blue and normal saline with a total of 6 mL injected. Ultrasound was used to assess the aspect of the breast, which was deep to the bulky mass, actually below the nipple-areolar complex. No additional abnormalities were seen, so the planned partial mastectomy transition site was noted in the skin at that location. The Neoprobe was used to clear the axilla and activity was noted in the mid axilla. At this point, the left axilla and breast were prepped and draped in usual fashion. Time-out was performed, verifying patient, site, procedure, position. The site of the largest number of counts in the axilla was marked. Linear incision made after injection with local anesthetic, 0.5% lidocaine 0.5% Marcaine. Dissection was carried down on subcutaneous fat. The 1st more superficial lymph node was encountered, was actually somewhat enlarged, dissected out with a margin of approximately 2 x 2 cm normal fat with this area as this was after it had been removed. These had 330 counts. This was sent as the 1st node identified. It was noted not blue, but did have radio activity. At this point, additional dissection was encountered since there was still significant activity noted in that incision site in the axilla. A small lymph node was initially encountered. This was dissected and removed and this had 0 counts. Additional dissection was carried more deeply. A smaller lymph node was encountered, this was noted to be hot. It was dissected out and this had just slightly above 500 counts. Those 2 hot lymph nodes were sent in 1 specimen cup. The cold lymph node was sent in a separate cup. Following this, clearing of the armpit demonstrated counts not significant greater than 50 remaining and given the patient's age and medical comorbidities, was likely not going to be a candidate for chemotherapy. No additional bulky disease was noted. No blue lymphatics or blue nodes were easily noted, but with no additional hot nodes, I ended the axillary portion of dissection. Deeper and then subcutaneous tissue closed with 3-0 Vicryl sutures. Skin was closed with 4-0 Monocryl running subcuticular suture. Dermabond was applied to that site later. Following this, the area of skin incision was marked. A football-shaped incision was marked and incised. Following this, electrocautery was used to create a wedge shape from the skin incision down almost but not quite to the chest wall, which was felt to be a good palpable margin posteriorly and deeply from the tumor. This (more content not included)... [facility] SURGICAL PATHOLOGYon CASE REPORT [facility] Comment on above: Order Comment: Speci men Type: TISSUE SPECIMENOrdering Facility: [facility] Address: [address] [place] [id number] Result Comment: [facility] Pathology Report Case: [id number] Authorizing Provider: Chino Ambrose MD Collected: 05/03/2022 01:22 PM Ordering Location: [facility] Surgery Received: 05/03/2022 03:40 PM Pathologist: Jennifer Lyon MD Specimens: A) - BREAST LUMPECTOMY LEFT, single tail-lateral, double tail-cranial B) - SENTINEL LYMPH NODE LEFT, #1 (le 330) (out at 1330) C) - SENTINEL LYMPH NODE LEFT, cold node (out at 1336) D) - SENTINEL LYMPH NODE LEFT, #2 (le count 500)(out at 1341) Performed By: #### S ####[facility] LABCLIA [id number] [address] CLINICAL HISTORY Normal [facility] Comment on above: Order Comment: Specalejandro martin Type: TISSUE SPECIMENOrdering Facility: [facility] Address: [address] [place] [address] Result Comment: Pre- op diagnosis: Malignant neoplasm of overlapping sites of left breast in female, estrogen receptor positive (HCC) [C50.812, Z17.0] Performed By: #### S ####[facility] [id number] [address] DIAGNOSIS COMMENT Normal [facility] Comment on above: Order Comment: Jyoti martin Type: TISSUE SPECIMENOrdering Facility: [facility] Address: [address] [place] [address] Result Comment: A. T he invasive carcinoma is positive for GATA3 and cytokeratin AE1/AE3 supporting the diagnosis. Laboratory Developed Test (LDT) Disclaimer: Performance characteristics of immunohistochemical, immunofluorescent and chromogenic in-situ hybridization tests have been determined by the performing laboratory within [facility] [place] ([facility], [facility], [facility] or [facility]) in a manner consistent with CLIA requirements. One or more of these tests have not been cleared or approved by the FDA. [facility] is regulated under CLIA as qualified to perform high-complexity testing. These tests are used for clinical purposes. They should not be regarded as investigational or for research. Positive and negative controls stain appropriately. Performed By: #### S ####[facility]CLIA [id number] [address] FINAL DIAGNOSIS Normal [facility] Comment on above: Order Comment: Speci men Type: TISSUE SPECIMENOrdering Facility: [facility] Address: [address] [place] [address] Result Comment: A. L eft breast, lumpectomy: - Invasive ductal carcinoma, see comment and synoptic report. - Seborrheic keratosis. - Two clips identified. B. Left sentinel lymph node, #1, excision: - 2 lymph nodes, negative for metastatic carcinoma (0/2). - Biopsy site identified. C. Left sentinel lymph node, cold node, out at 1336, excision: - 1 lymph node, negative for metastatic carcinoma (0/1). D. Left sentinel lymph node #2, excision: - 1 lymph node, negative for metastatic carcinoma (0/1). 05/10/2022 Performed By: #### S ####[facility]CLIA [id number] [address] FINAL PERFORMING LAB Normal [facility] Comment on above: Order Comment: Speci men Type: TISSUE SPECIMENOrdering Facility: [facility] Address: [address] [place] [address] Result Comment: Diag nostic interpretation performed at [facility], [address] [address] CLIA# [id number] Body Service Team Member: Ananda Leary M.D. Performed By: #### S ####[facility]CLIA [id number] [address] GROSS DESCRIPTION [facility] Comment on above: Order Comment: Speci men Type: TISSUE SPECIMENOrdering Facility: [facility] Address: [address] [place] [address] Result Comment: A. B REAST LUMPECTOMY LEFT Received in formalin labeled breast lumpectomy left is an oriented segment of breast tissue with overlying skin and nipple. The op note is referenced, and the specimen is confirmed to be considered a lumpectomy by the surgeon. The specimen weighs 1135.2 g and measures 23.5 cm from superior to inferior by 22 cm from medial to lateral by 7.3 cm from anterior to posterior. The overlying skin measures 21.2 cm from medial to lateral by 23.5 cm from superior to inferior. The specimen is oriented per the requisition as single tail stitch ocampo lateral and double tail stitch ocampo cranial. The specimen is imaged to reveal 2 biopsy clips. The specimen is inked as follows: Superior margin from 9:00 to 3:00-blue, inferior margin from 3:00 to 9:00-green, posterior margin-black. The specimen is imaged to reveal two biopsy clips. There is a pink-brown, roughened lesion on the skin measuring 1.6 x 1.1 x 0.2 cm which is situated at 2:00 1.2 cm from the nipple. The nipple appears heterogeneous with focal pink-white, irregular areas of tissue. Palpation of the breast tissue reveals lobular, firm tissue underlying nipple and extending laterally. The specimen is sectioned from medial to lateral into 14 slices. Sectioning reveals a variegated pink-pink to pink-white, firm, irregular lesion in slices 7 through 9. The two clips are identified by x-ray in slice 8. The mass measures 5.7 cm from superior to inferior by 5.0 cm from medial to lateral by 5.0 cm from anterior to posterior, and involves the nipple. The mass is located 14.5 cm to the nearest superior margin, 3.3 cm to the nearest inferior margin, 7.5 cm to the nearest medial margin, 9.5 cm from the nearest lateral margin, and 1.0 cm to the nearest posterior margin. The skin lesion is from the mass by adipose tissue measuring 0.9 cm. The remaining breast tissue is pink-yellow adipose tissue with fibrous tissue (5%). The specimen was removed from the patient on 05/03/2022 at 2:05 PM and placed in formalin on the same date at 2:56 PM. X-ray and external images are uploaded. The case was discussed with Dr. Evangelista. Polisher Sand sections are submitted as follows: A1 field representatives director slice 6, medial tissue flanking mass (non-marginal) A2 field representatives director slice 7 (non-marginal) A3-A7 composite longest linear dimension from superior to inferior, slice 8 A3 superior tissue flanking mass (non-marginal) A4-A6 mass (clip in A5) A7 inferior tissue flanking mass (non-marginal) A8 field representatives director slice 9 (non-marginal) A9 field representatives director slice 10, lateral tissue flanking the mass (non-marginal) A10 mass with overlying skin lesion (slice 10) A11-A14 entire nipple with underlying mass (slice 8) A 15 closest superior margin, perpendicular (slice 8) A 16 closest inferior margin, perpendicular (slice 8) A 17 closest medial margin, perpendicular (slice 1) A 18 closest lateral margin, perpendicular (slice 14) A 19 closest posterior margin with underlying mass, perpendicular (slice 8) Gross examination performed at [facility], [facility] 05/04/22 11:56 AM B. SENTINEL LYMPH NODE LEFT Received in formalin labeled sentinel lymph node left, #1 (Le 330) (out at 1330) is a pink-brown segment of fibroadipose tissue measuring 4.0 x 2.7 x 1.9 cm. The sectioning of the fibroadipose tissue reveals two lymph nodes. Lymph node #1 measures 1.2 x 1.0 x 0.6 cm. Lymph node #2 measures 3.9 x 1.8 x 1.0 cm. The l specimen is entirely submitted as follows: B1 lymph node #1, serially sectioned B2-B5 lymph node #2, serially sectioned B6 remaining adipose tissue Gross examination performed at [facility], [facility] 05/04/22 12:12 PM C. SENTINEL LYMPH NODE LEFT Received in formalin labeled sentinel lymph node left, cold nodule (out of 1336) is a pink-yellow segment of fibroadipose tissue measuring 1.1 x 0.7 x 0.6 cm. One lymph node is identified. The lymph node and surrounding fibroadipose tissue is serially sectioned and entirely submitted in cassette C1. Gross examination performed at [facility], [address] 05/04/22 12:16 PM D. SENTINEL LYMPH NODE LEFT Received in formalin labeled sentinel lymph lymph node left, #2 (Maloy counter 500) (out at 1341) is a segment of fibroadipose tissue measuring 1.7 x 1.0 x 0.8 cm. One lymph node is identified. The lymph node and surrounding fibroadipose tissue is serially sectioned and entirely submitted in cassette D1. Gross examination performed at [facility], [address] [id number] 05/04/22 12:20 PM Performed By: #### S ####[facility] LABCLIA [id number] [id number] [id number] [facility] SYNOPTIC REPORT Normal [facility] Comment on above: Order Comment: Speci men Type: TISSUE SPECIMENOrdering Facility: [facility] Address: [address] [place] [address] Result Comment: INVA SIVE CARCINOMA OF THE BREAST: Resection INVASIVE CARCINOMA OF THE BREAST, RESECTION - All Specimens 8th Edition - Protocol posted: 11/17/2020 SPECIMEN Procedure: Excision (less than total mastectomy) Specimen Laterality: Left TUMOR Tumor Site: Central Tumor Site: Nipple 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) Histologic Grade (Phoenix Histologic Score): Glandular (Acinar) / Tubular Differentiation: Score 3 Nuclear Pleomorphism: Score 3 Mitotic Rate: Score 3 Overall Grade: Grade 3 (scores of 8 or 9) Tumor Size: Greatest dimension of largest invasive focus (Millimeters): 57 mm Tumor Focality: Single focus of invasive carcinoma Ductal Carcinoma In Situ (DCIS): Not identified Treatment Effect in the Breast: No known presurgical therapy MARGINS Margin Status for Invasive Carcinoma: All margins negative for invasive carcinoma Distance from Invasive Carcinoma to Closest Margin: 10 mm Closest Margin(s) to Invasive Carcinoma: Posterior REGIONAL LYMPH NODES Regional Lymph Node Status: : All regional lymph nodes negative for tumor Total Number of Lymph Nodes Examined (sentinel and non-sentinel): 4 Number of [place] Nodes Examined: 4 PATHOLOGIC STAGE CLASSIFICATION (pTNM, AJCC 8th Edition) Reporting of pT, pN, and (when applicable) pM categories is based on information available to the pathologist at the time the report is issued. As per the AJCC (Chapter 1, 8th Ed.) it is the managing physician???s responsibility to establish the final pathologic stage based upon all pertinent information, including but potentially not limited to this pathology report. pT Category: pT3 Regional Lymph Nodes Modifier: (sn): [place] node(s) evaluated. pN Category: pN0 Breast Biomarker Testing Performed on Previous Biopsy: Estrogen Receptor (ER) Status: Positive (greater than 10% of cells demonstrate nuclear positivity) Percentage of Cells with Nuclear Positivity: 90 % Breast Biomarker Testing Performed on Previous Biopsy: Progesterone Receptor (PgR) Status: Positive Percentage of Cells with Nuclear Positivity: 1 % Breast Biomarker Testing Performed on Previous Biopsy: HER2 (by immunohistochemistry): Negative (Score 1+) Testing Performed on Comment(s): Polisher Sand tumor Block: A5 Performed By: #### S ####[facility] LABCLIA [id number] [address] [place] YANET DIAGNOSTIC LTon 03-30-20 22 [facility] Basophil percentageon 2021 Chloride [Moles/Vol] 103 mmol/L 98-107 [facility] Work Phone: Glucose [Mass/Vol] 144 mg/dL 74-106 [facility] Work Phone: Comment on above: Fasting Glucose resu lt greater than or equal to 126 mg/dL suggests DIABETES MELLITUS per A.D.A. criteria. Potassium [Moles/Vol] 3.9 mmol/L 3.5-5.1 [facility] Work Phone: Sodium [Moles/Vol] 143 mmol/L 136-145 [facility] Work Phone: Laboratory - Chemistry and C hemistry - challengeon 03-28-2022 CO2 [Moles/Vol] 33.0 mmol/L 21.0-32.0 [facility] Work Phone: Urea nitrogen/Creatinine [Mass ratio] 20.1 mg/mg 03-09 [facility] Work Phone: No Panel Informationon 03-28 Estimated GFR (MDRD) Amer 88 mL/min >60 [facility] Work Phone: Comment on above: GFR Calc Estimated GFR (MDRD) Non-Af Amer 73 mL/min >60 [facility] Work Phone: Comment on above: Non- GFR Calc Serum or plasma calcium james urement (mass/volume)on 03-28-2022 Calcium [Mass/Vol] 9.5 mg/dL 8.5-10.1 [facility] Work Phone: Serum or plasma creatinine m easurement (mass/volume)on 03-28-2022 Creatinine [Mass/Vol] 0.80 mg/dL 0.55-1.02 [facility] Work Phone: Comment on above: The validity of the calculated GFR & GFRAA in patients over 70 years has not been determined. Clinical correlation is essential. Serum or plasma urea nitroge n measurement (mass/volume)on 03-28-2022 Urea nitrogen [Mass/Vol] 16 mg/dL 7-18 [facility] Work Phone: Thin prep Papanicolaou smear with manual screeningon 03-28-2022 Thin prep Papanicolaou smear with manual screening 7 5-15 [facility] Work Phone: US BREAST BIOPSY LEFT (POC) SURG USE ONLYon 03-22-2022 [facility] YANET DIAGNOSTIC BILATon 03-15 [facility] Laboratory - Chemistry and C hemistry - challengeon 03-08-2022 Cobalamin (Vitamin B12) [Mass/Vol] 363 pg/mL 211-911 [facility] Work Phone: No Panel Informationon 03-08 Vitamin D 25-Hydroxy 93.0 ng/mL [facility] Work Phone: Comment on above: Vitamin D 25(OH) Sta tus Range Deficiency <20 ng/mL (50nmol/L) Insufficiency 20 - 30 ng/mL (50 - 75 nmol/L) Sufficiency 30 - 100 ng/mL (75 - 250 nmol/L) Toxicity >100 ng/mL (>250 nmol/L) Serum or plasma folate measu rement (mass/volume)on 03-08-2022 Folate [Mass/Vol] 58.50 ng/mL 3.1-55.4 [facility] Work Phone: Absolute lymphocyte counton 02-15-2022 Lymphocytes Auto (Unsp spec) [#/Vol] 2.86 10*3/uL 0.83-4.51 [facility] Work Phone: Basophil percentageon 2021 Basophils/100 WBC (Bld) 0.9 % 0-1 [facility] Work Phone: Bilirubin [Mass/Vol] 0.50 mg/dL 0.20-1.00 [facility] Work Phone: Comment on above: For patients on eltr ombopag therapy, use of Dimension [place] TBIL is not recommended. Chloride [Moles/Vol] 104 mmol/L 98-107 [facility] Work Phone: Cholesterol [Mass/Vol] 275 mg/dL <200 [facility] Work Phone: Comment on above: <200 mg/dL Desirable 200-240 mg/dL Borderline >240 mg/dL High Risk Eosinophils/100 WBC (Bld) 2.5 % 0-5 [facility] Work Phone: Glucose [Mass/Vol] 100 mg/dL 74-106 [facility] Work Phone: Comment on above: Fasting Glucose resu lt from 100 to 125 mg/dL suggests IMPAIRED HOMEOSTASIS per A.D.A. criteria. Neutrophils (Bld) [#/Vol] 4.0 10*3/uL 2.0-7.7 [facility] Work Phone: Neutrophils/100 WBC (Bld) 51.3 % 47-70 [facility] Work Phone: Potassium [Moles/Vol] 3.8 mmol/L 3.5-5.1 [facility] Work Phone: Protein [Mass/Vol] 7.7 g/dL 6.4-8.2 [facility] Work Phone: Sodium [Moles/Vol] 143 mmol/L 136-145 [facility] Work Phone: Triglyceride [Mass/Vol] 187 mg/dL <199 [facility] Work Phone: Comment on above: The drugs N-Acetylcy steine and Metamizole may falsely depress this assay.Serum Triglycerides Reference Interval Normal <150 mg/dL Borderline high 150 - 199 mg/dL High 200 - 499 mg/dL Very High > or = 500 mg/dL WBC (Bld) [#/Vol] 7.7 10*3/uL 4.4-11.0 [facility] Work Phone: Blood erythrocytes count (nu mber/volume)on 02-15-2022 RBC (Bld) [#/Vol] 4.27 10*6/uL 4.2-5.4 [facility] Work Phone: Blood hemoglobin measurement (mass/volume)on 02-15-2022 Hemoglobin (Bld) [Mass/Vol] 13.7 g/dL 12.0-15.0 [facility] Work Phone: Blood lymphocytes/100 leukoc yteson 02-15-2022 Lymphocytes/100 WBC (Bld) 37.0 % 19-41 [facility] Work Phone: Blood monocytes/100 leukocyt eson 02-15-2022 Monocytes/100 WBC (Bld) 8.2 % 0-10 [facility] Work Phone: Blood platelet mean volumeon 02-15-2022 Platelet mean volume (Bld) [Entitic vol] 10.0 fL 6.2-12.0 [facility] Work Phone: Determination of erythrocyte mean corpuscular volume (MCV)on 02-15-2022 MCV (RBC) [Entitic vol] 100.2 fL 81-99 [facility] Work Phone: Hematocrit Auto (Bld) [Volum e fraction]on 02-15-2022 Hematocrit (Bld) [Volume fraction] 42.8 % 37-47 [facility] Work Phone: Laboratory - Chemistry and C hemistry - challengeon 02-15-2022 ALP [Catalytic activity/Vol] 88 U/L 45-117 [facility] Work Phone: ALT [Catalytic activity/Vol] 18 U/L 13-56 [facility] Work Phone: CO2 [Moles/Vol] 34.0 mmol/L 21.0-32.0 [facility] Work Phone: Globulin (S) [Mass/Vol] 4.2 g/dL 2.2-4.2 [facility] Work Phone: Urea nitrogen/Creatinine [Mass ratio] 20.0 mg/mg 10-20 [facility] Work Phone: Laboratory - Hematology and Cell countson 02-15-2022 Erythrocyte distribution width (RBC) [Entitic vol] 49.4 fL 35.1-43.9 [facility] Work Phone: Erythrocyte distribution width (RBC) [Ratio] 13.5 % 11.6-14.6 [facility] Work Phone: Immature granulocytes/100 WBC (Bld) 0.100 % 0.0-0.9 [facility] Work Phone: Comment on above: IG% - Immature Granu locytes (promyelocytes, myelocytes and metamyelocytes) > 1% indicates that a LEFT SHIFT is Present. MCH (RBC) [Entitic mass] 32.1 pg 27.0-32.0 [facility] Work Phone: Nucleated RBC/100 WBC (Bld) [Ratio] 0 % 0-5 [facility] Work Phone: MCHC Auto (RBC) [Mass/Vol]on 02-15-2022 MCHC (RBC) [Mass/Vol] 32.0 g/dL 32-36 [facility] Work Phone: No Panel Informationon 02-15 Estimated GFR (MDRD) Amer 82 mL/min >60 [facility] Work Phone: Comment on above: GFR Calc Estimated GFR (MDRD) Non-Af Amer 68 mL/min >60 [facility] Work Phone: Comment on above: Non- GFR Calc Thyroid Stimulating Hormone (TSH) 1.34 uIU/mL 0.358-3.74 [facility] Work Phone: Vitamin D 25-Hydroxy 99.8 ng/mL [facility] Work Phone: Comment on above: Vitamin D 25(OH) Sta tus Range Deficiency <20 ng/mL (50nmol/L) Insufficiency 20 - 30 ng/mL (50 - 75 nmol/L) Sufficiency 30 - 100 ng/mL (75 - 250 nmol/L) Toxicity >100 ng/mL (>250 nmol/L) Platelets bldon 02-15-2022 Platelets (Bld) [#/Vol] 246 10*3/uL 150-450 [facility] Work Phone: Serum or plasma albumin james urement (mass/volume)on 02-15-2022 Albumin [Mass/Vol] 3.5 g/dL 3.2-5.0 [facility] Work Phone: Serum or plasma albumin/glob ulin mass ratioon 02-15-2022 Albumin/Globulin [Mass ratio] 0.8 {ratio} 0.9-2.4 [facility] Work Phone: Serum or plasma calcium james urement (mass/volume)on 02-15-2022 Calcium [Mass/Vol] 9.7 mg/dL 8.5-10.1 [facility] Work Phone: Serum or plasma cholesterol in HDL measurement (mass/volume)on 02-15-2022 Cholesterol in HDL [Mass/Vol] 67 mg/dL >40 [facility] Work Phone: Comment on above: The drugs N-Acetylcy steine and Metamizole may falsely depress this assay. Reference Range HDL <40 mg/dL Low HDL Cholesterol HDL >or= 60 mg/dL High HDL Cholesterol Serum or plasma cholesterol in VLDL measurement (mass/volume)on 02-15-2022 Cholesterol in VLDL [Mass/Vol] 37 mg/dL 5-40 [facility] Work Phone: Serum or plasma creatinine m easurement (mass/volume)on 02-15-2022 Creatinine [Mass/Vol] 0.85 mg/dL 0.55-1.02 [facility] Work Phone: Comment on above: The validity of the calculated GFR & GFRAA in patients over 70 years has not been determined. Clinical correlation is essential. Serum or plasma low density lipoprotein (LDL) cholesterol measurement (mass/volume)on 02-15-2022 Cholesterol in LDL [Mass/Vol] 171 mg/dL 0-130 [facility] Work Phone: Serum or plasma urea nitroge n measurement (mass/volume)on 02-15-2022 Urea nitrogen [Mass/Vol] 17 mg/dL 7-18 [facility] Work Phone: Thin prep Papanicolaou smear with manual screeningon 02-15-2022 Thin prep Papanicolaou smear with manual screening 26 U/L 15-37 [facility] Work Phone: Thin prep Papanicolaou smear with manual screening 5 5-15 [facility] Work Phone: Glucose Glucometer (BldC) [M ass/Vol]on 12-04-2021 Glucose [Mass/Vol] 166 mg/dL 74-106 [facility] Work Phone: Comment on above: MANAGEMENT OF PATIEN T CARE PER NURSING PROTOCOL Absolute lymphocyte counton 12-03-2021 Lymphocytes Auto (Unsp spec) [#/Vol] 2.31 10*3/uL 0.83-4.51 [facility] Work Phone: Basophil percentageon 2021 Basophils/100 WBC (Bld) 0.4 % 0-1 [facility] Work Phone: Chloride [Moles/Vol] 100 mmol/L 98-107 [facility] Work Phone: Eosinophils/100 WBC (Bld) 0.6 % 0-5 [facility] Work Phone: Glucose [Mass/Vol] 224 mg/dL 74-106 [facility] Work Phone: Comment on above: Glucose result great er than or equal to 200 mg/dLsuggests DIABETES MELLITUS per A.D.A. criteria. Neutrophils (Bld) [#/Vol] 8.7 10*3/uL 2.0-7.7 [facility] Work Phone: Neutrophils/100 WBC (Bld) 73.9 % 47-70 [facility] Work Phone: Potassium [Moles/Vol] 3.7 mmol/L 3.5-5.1 [facility] Work Phone: Sodium [Moles/Vol] 141 mmol/L 136-145 [facility] Work Phone: WBC (Bld) [#/Vol] 11.8 10*3/uL 4.4-11.0 [facility] Work Phone: Blood erythrocytes count (nu mber/volume)on 12-03-2021 RBC (Bld) [#/Vol] 4.41 10*6/uL 4.2-5.4 [facility] Work Phone: Blood hemoglobin measurement (mass/volume)on 12-03-2021 Hemoglobin (Bld) [Mass/Vol] 14.1 g/dL 12.0-15.0 [facility] Work Phone: Blood lymphocytes/100 leukoc yteson 12-03-2021 Lymphocytes/100 WBC (Bld) 19.6 % 19-41 [facility] Work Phone: Blood monocytes/100 leukocyt eson 12-03-2021 Monocytes/100 WBC (Bld) 5.1 % 0-10 [facility] Work Phone: [phone] Blood platelet mean volumeon 12-03-2021 Platelet mean volume (Bld) [Entitic vol] 9.9 fL 6.2-12.0 [facility] Work Phone: [phone] Determination of erythrocyte mean corpuscular volume (MCV)on 12-03-2021 MCV (RBC) [Entitic vol] 99.8 fL 81-99 [facility] Work Phone: [phone] Hematocrit Auto (Bld) [Volum e fraction]on 12-03-2021 Hematocrit (Bld) [Volume fraction] 44.0 % 37-47 [facility] Work Phone: Laboratory - Chemistry and C hemistry - challengeon 12-03-2021 CO2 [Moles/Vol] 33.0 mmol/L 21.0-32.0 [facility] Work Phone: Urea nitrogen/Creatinine [Mass ratio] 19.8 mg/mg 10-20 [facility] Work Phone: Laboratory - Hematology and Cell countson 12-03-2021 Erythrocyte distribution width (RBC) [Entitic vol] 48.5 fL 35.1-43.9 [facility] Work Phone: Erythrocyte distribution width (RBC) [Ratio] 13.2 % 11.6-14.6 [facility] Work Phone: Immature granulocytes/100 WBC (Bld) 0.400 % 0.0-0.9 [facility] Work Phone: Comment on above: IG% - Immature Granu locytes (promyelocytes, myelocytes and metamyelocytes) > 1% indicates that a LEFT SHIFT is Present. MCH (RBC) [Entitic mass] 32.0 pg 27.0-32.0 [facility] Work Phone: Nucleated RBC/100 WBC (Bld) [Ratio] 0 % 0-5 [facility] Work Phone: MCHC Auto (RBC) [Mass/Vol]on 12-03-2021 MCHC (RBC) [Mass/Vol] 32.0 g/dL 32-36 [facility] Work Phone: No Panel Informationon 12-03 Troponin I High Sensitivity 12 pg/mL 3.0-54.0 [facility] Work Phone: Comment on above: Please Note: New Cristal t Units and Gender Specific Reference Ranges. For more information see Policy Stat Procedure [place] High Sensitivity Troponin (TNIH) and attachments. Estimated Creatinine Clearance Calc 29.84 ml/min [facility] Work Phone: Estimated GFR (MDRD) Amer 60 mL/min >60 [facility] Work Phone: Comment on above: GFR Calc Estimated GFR (MDRD) Non-Af Amer 50 mL/min >60 [facility] Work Phone: Comment on above: Non- GFR Calc Platelets bldon 12-03-2021 Platelets (Bld) [#/Vol] 245 10*3/uL 150-450 [facility] Work Phone: Serum or plasma calcium james urement (mass/volume)on 12-03-2021 Calcium [Mass/Vol] 9.8 mg/dL 8.5-10.1 [facility] Work Phone: Serum or plasma creatinine m easurement (mass/volume)on 12-03-2021 Creatinine [Mass/Vol] 1.11 mg/dL 0.55-1.02 [facility] Work Phone: Comment on above: The validity of the calculated GFR & GFRAA in patients over 70 years has not been determined. Clinical correlation is essential. Serum or plasma urea nitroge n measurement (mass/volume)on 12-03-2021 Urea nitrogen [Mass/Vol] 22 mg/dL 7-18 [facility] Work Phone: Thin prep Papanicolaou smear with manual screeningon 12-03-2021 Thin prep Papanicolaou smear with manual screening 8 5-15 [facility] Work Phone: Office Visit: Kvng 04-06-20 17 Dietary management education, guidance, and counseling (procedure) yes Invalid Interpretation Code [facility] Work Phone: [phone] Documentation of current medications (procedure) Done Invalid Interpretation Code [facility] Work Phone: [phone] Fall risk assessment No Invalid Interpretation Code [facility] Work Phone: [phone] Clinical Lists Update: Prelo strategic marketing leader 09-09-2015 Alanine aminotransferase (ALT) 24 U/L Invalid Interpretation Code [facility] Work Phone: [phone] Aspartate aminotransferase (AST) 28 U/L Invalid Interpretation Code [facility] Work Phone: [phone] BUN/Creatinine Ratio 20.3 mg/mg Invalid Interpretation Code [employer] Work Phone: [phone] Calcium 9.1 mg/dL Invalid Interpretation Code [employer] Work Phone: [phone] Chloride 103 mmol/L Invalid Interpretation Code [employer] Work Phone: [phone] CO2 33.0 mmol/L Invalid Interpretation Code [employer] Work Phone: [phone] Creatinine 0.74 mg/dL Invalid Interpretation Code [employer] Work Phone: [phone] Glucose mass conc 79 mg/dL Invalid Interpretation Code [employer] Work Phone: [phone] Potassium molar conc 3.8 mmol/L Invalid Interpretation Code [employer] Work Phone: [phone] Sodium 142 mmol/L Invalid Interpretation Code [employer] Work Phone: [phone] Thyroid stimulating hormone (TSH) 1.11 u[iU]/mL Invalid Interpretation Code [employer] Work Phone: [phone] Urea nitrogen 15 mg/dL Invalid Interpretation Code [employer] Work Phone: [phone] Clinical Lists Update: Clini harriet Noteon 05-25-2015 Left ventricular Ejection fraction 60 % Invalid Interpretation Code [employer] Work Phone: [phone] Office Visiton 04-08-2015 Tobacco use CPHS Never smoker Invalid Interpretation Code [employer] Work Phone: [phone] EKG Report: [facility] ECG Obse rvationson 10-07-2013 QTc Mata 395 ms Invalid Interpretation Code [employer] Work Phone: [phone] Replaced Document: Sarahsharon E CG Observationson 10-07-2013 EKG QRS axis -16 deg Invalid Interpretation Code [employer] Work Phone: [phone] Interpretation Sinus Rhythm WITHIN NORMAL LIMITS Invalid Interpretation Code [employer] Work Phone: [phone] P [place] 34 deg Invalid Interpretation Code [employer] Work Phone: [phone] CA Interval 208 ms Invalid Interpretation Code [employer] Work Phone: [phone] Pulse (Heart Rate) 63 /min Invalid Interpretation Code [employer] Work Phone: [phone] Pulse (Heart Rate) 397 ms Invalid Interpretation Code [employer] Work Phone: [phone] QRS Duration 96 ms Invalid Interpretation Code [employer] Work Phone: [phone] QT Interval new path ms Invalid Interpretation Code [employer] Work Phone: [phone] T [place] 57 deg Invalid Interpretation Code [employer] Work Phone: [phone] Clinical Lists Update: Prelo strategic marketing leader 09-11-2012 Albumin 3.2 g/dL Low [employer] Work Phone: [phone] Alkaline phosphatase (ALP) 71 U/L Invalid Interpretation Code [employer] Work Phone: [phone] Anion gap 6 mmol/L Invalid Interpretation Code [employer] Work Phone: [phone] Bilirubin (total) 0.20 mg/dL Invalid Interpretation Code [employer] Work Phone: [phone] Lab Reporton 07-25-2012 eGFR (non-black) 82 mL/min/{1.73_m2} Invalid Interpretation Code [employer] Work Phone: [phone] eGFR (non-black) 99 mL/min/{1.73_m2} Invalid Interpretation Code [employer] Work Phone: [phone] Erythrocyte distribution width Auto Ratio (RBC) 14.2 % Invalid Interpretation Code [employer] Work Phone: [phone] Erythrocytes (RBC) 4.47 10*6/uL Invalid Interpretation Code [employer] Work Phone: [phone] Hematocrit (HCT) 45.5 % Invalid Interpretation Code [employer] Work Phone: [phone] Hemoglobin mass conc (Bld) 13.4 g/dL Invalid Interpretation Code [employer] Work Phone: [phone] MCH 30 pg Invalid Interpretation Code [employer] Work Phone: [phone] MCHC mass conc (RBC) 29.5 % Invalid Interpretation Code [employer] Work Phone: [phone] MCV 101.8 fL Invalid Interpretation Code [employer] Work Phone: [phone] Platelets 273 10*3/mm3 Invalid Interpretation Code [facility] Work Phone: [phone] WBC (Leukocytes) 7.0 10*3/uL Invalid Interpretation Code [facility] Work Phone: [phone] Clinical Lists Update: Prelo strategic marketing leader 05-25-2012 Bilirubin (direct) 0.11 mg/dL Invalid Interpretation Code [facility]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 Work Phone: Start: 04-21-2023 Non-patient / Non-visit Dr. Mack Donald Work Phone: [facility] Work Phone: Start: 04-20-2023 Non-patient / Non-visit Dr. Mack Donald Work Phone: [facility] Start: 04-20-2023 Non-patient / Non-visit Dr. Mack Donald Work Phone: [facility] Work Phone: Start: 04-19-2023 Non-patient / Non-visit [facility] Mack [facility] Start: 04-19-2023 Non-patient / Non-visit Dr. Mack Donald Work Phone: [facility] Work Phone: Start: 04-18-2023 Non-patient / Non-visit Dr. Mack Donald Work Phone: [facility] Start: 04-18-2023 Non-patient / Non-visit Dr. Mack Donald Work Phone: [facility] Start: 04-17-2023 Non-patient / Non-visit Dr. Mack Donald Work Phone: [facility] Work Phone: Start: 04-17-2023 End: 04-25-2023 Evaluation and management of inpatient [facility]: Start: 04-10-2023 End: 04-10-2023 Patient encounter procedure Chino Ambrose MD Work Phone: General Surgery Comment on above: 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, estrogen receptor positive, unspecified site of breast (HCC) (Primary Dx) Start: 04-04-2023 End: 04-04-2023 Subsequent hospital visit by physician Diagnostic Mammo [facility] Start: 03-20-2023 Telephone encounter Kwadwo jones APRN.PILOT PLANT TECHNICIAN Work Phone: [facility] Comment on above: Results Start: 03-20-2023 End: 03-20-2023 Subsequent hospital visit by physician Xr [facility] Work Phone: Radiology Comment on above: Acute cough [R05.1] Start: 03-20-2023 End: 03-20-2023 Office outpatient visit 25 minutes Kwadwo Mccray APRN.P[employer]OT PL[employer] TECHNICIAN Work Phone: [facility] Comment on above: Acute cough (Primary Dx); Community acquired pneumonia of right lower lobe of lung Start: 03-13-2023 End: 03-13-[address] Ethan Donald Work Phone: [facility] Work Phone: Start: 02-15-2023 End: 02-15-2023 Patient encounter procedure Ethan Donald MD Work Phone: [facility] Comment on above: Chronic diastolic co ngestive heart failure (HCC) (Primary Dx); Hypokalemia; S/P aortic valve replacement; Hyperlipidemia LDL goal <100; Nocturnal hypoxia; Diaphragmatic paresis; Obstructive sleep apnea syndrome; Acquired hypothyroidism; Malignant neoplasm of left female breast, unspecified estrogen receptor status, unspecified site of breast (HCC); Statin intolerance Start: 02-12-2023 Telephone encounter Ethan Donald MD Work Phone: [facility] Comment on above: Lab Orders Results Start: 02-12-2023 End: 02-12-[address] Ethan Donald Work Phone: [facility] Work Phone: Start: 02-09-2023 Telephone encounter Ethan Donald MD Work Phone: [facility] Comment on above: Orders Start: 08-14-2022 End: 08-14-2022 Patient encounter procedure Ethan Donald MD Work Phone: [facility] Comment on above: Chronic diastolic co ngestive heart failure (HCC) (Primary Dx); Benign hypertension; Hyperlipidemia LDL goal <100; Obstructive sleep apnea syndrome; Actinic keratosis; Age-related osteoporosis without current pathological fracture; Secondary pulmonary arterial hypertension (HCC); Malignant neoplasm of left female breast, unspecified estrogen receptor status, unspecified site of breast (HCC) Start: 08-04-2022 Telephone encounter Ethan Donald MD Work Phone: [facility] Comment on above: fax lab work orders to [facility] lab Start: 08-04-2022 End: 08-04-[address] Ethan Donald Work Phone: [facility] Work Phone: Start: 08-04-2022 End: 08-04-[address] 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, estrogen receptor positive, unspecified site of breast (HCC) (Primary Dx) Start: 07-28-2022 Telephone encounter Ethan Donald MD Work Phone: [facility] Comment on above: Orders; Patient Ques tion Start: 06-06-2022 Telephone encounter Chino Ambrose MD Work Phone: General Surgery Comment on above: Patient Update (tamo xifen) Start: 06-01-2022 End: 06-01-2022 Patient encounter procedure Chino Ambrose MD Work Phone: General Surgery Comment on above: 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, estrogen receptor positive, unspecified site of breast (HCC) (Primary Dx) Start: 05-18-2022 End: 05-18-2022 Patient encounter procedure Vivian Esposito PA-C Work Phone: General Surgery Comment on above: Aftercare following surgery (Primary Dx) Start: 05-17-2022 Telephone encounter Chino Ambrose MD Work Phone: General Surgery Comment on above: Patient Update Start: 05-16-2022 Telephone encounter Danie eden DO Work Phone: Hematology/Oncology Comment on above: Appointment Start: 05-11-2022 End: 05-11-2022 Patient encounter procedure Chino Ambrose MD Work Phone: General Surgery Comment on above: 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, estrogen receptor positive, unspecified site of breast (HCC) (Primary Dx) Start: 05-05-2022 ambulatory Tracie Valdivia RN [facility] Start: 05-05-2022 Follow-up encounter Tracie Valdivia RN [employer] [facility] Comment on above: Transition Of Care ( [facility] Hospital Discharge Follow up 05/04/22) Start: 05-03-2022 End: 05-04-2022 ambulatory ETHAN DONALD Facility:[facility] Start: 05-03-2022 End: 05-03-2022 Subsequent hospital visit by physician [facility] Work Phone: Molecular Imaging Comment on above: 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 Ethan Donald Work Phone: [facility] Start: 2022 Telephone encounter Kari Sidhu APRN.CNP Work Phone: Pre Anesthesia Comment on above: Request for outside medical records (Last office visit) Start: 04-19-2022 End: 04-19-[address] Ethan Donald Work Phone: [facility] Work Phone: Start: 04-19-2022 End: 04-19-[address] Ethan Donald Work Phone: [facility] Start: 03-31-2022 Telephone encounter Ethan Donald MD Work Phone: [facility] Comment on above: Patient Update Start: 03-30-2022 End: 03-30-2022 Patient encounter procedure Chino Ambrose MD Work Phone: General Surgery Comment on above: Malignant neoplasm o f overlapping sites of left breast in female, estrogen receptor positive (HCC) (Primary Dx) Start: 03-30-2022 End: 03-30-2022 Subsequent hospital visit by physician Screen Mammo [facility] Comment on above: Subareolar mass of l eft breast [N63.42] Start: 03-28-2022 End: 03-28-[address] Ethan Donald Work Phone: [facility] Work Phone: Start: 03-28-2022 End: 03-28-[address] Ethan Donald Work Phone: [facility] Start: 03-22-2022 End: 03-22-2022 Patient encounter procedure Chino Ambrose MD Work Phone: General Surgery Comment on above: Subareolar mass of l eft breast (Primary Dx) Start: 03-20-2022 Telephone encounter Adriane Muhammad PA-C Work Phone: [facility] Comment on above: Results Start: 03-15-2022 End: 03-15-2022 Subsequent hospital visit by physician Diagnostic Mammo [facility] W[facility] Mammogram Start: 03-08-2022 Telephone encounter Ethan Donald MD Work Phone: [facility] Comment on above: Results Start: 03-08-2022 End: 03-08-[address] Ethan Donald Work Phone: [facility] Start: 02-27-2022 Non-patient / Non-visit Dr. Mack Donald Work Phone: [facility] Start: 02-27-2022 End: 02-27-[address] Ethan Donald Work Phone: [facility] Work Phone: Start: 02-27-2022 End: 02-27-[address] Ethan Donald Work Phone: [facility] Start: 02-20-2022 End: 02-20-[address] Ethan Donald Work Phone: [facility] Start: 02-15-2022 Telephone encounter Ethan Donald MD Work Phone: [facility] Comment on above: Results Start: 02-15-2022 End: 02-15-[address] Ethan Donald Work Phone: [facility] Work Phone: Start: 02-15-2022 End: 02-15-[address] Ethan Donald Work Phone: [facility] Start: 02-14-2022 End: 02-14-2022 Patient encounter procedure Ethan Donald MD Work Phone: [facility] Comment on above: Vertigo (Primary Dx) ; Hyperlipidemia LDL goal <100; Chronic diastolic congestive heart failure (HCC); Acquired hypothyroidism; Vitamin D deficiency; Mass of left breast, unspecified quadrant; Disorder of breast, unspecified Start: 02-10-2022 Refill Ethan Donald MD Work Phone: [facility] Comment on above: Refill Request Start: 12-04-2021 Non-patient / Non-visit Dr. Mack Donald Work Phone: [facility] Start: 12-03-2021 End: 12-04-2021 Evaluation and management of inpatient [facility] Procedures Date Procedure Procedure Detail Performing Clinician Start: 11-28-2024 Adult depression scr eening assessment Ethan Donald MD Work Phone: Start: 11-20-2023 Adult depression scr eening assessment Xr [place] Work Phone: Start: 04-25-[address] Ethan Donald Work Phone: Start: 04-19-2023 Plain X-ray of hip Dr. Ethan Donald Work Phone: Start: 04-19-2023 Primary uncemented hemiarthroplasty of hip Dr. Ethan Donald Work Phone: Start: 04-18-2023 Plain chest X-ray Dr. Esmer Donald Work Phone: Start: 04-17-2023 End: 04-17-2023 Plain chest X-ray Dr. Ethan Donald Work Phone: Start: 04-17-2023 Plain X-ray of femur Dr Janet Donald Work Phone: Start: 04-04-2023 Digital breast tomos ynthesis bilateral Chino Ambrose MD Work Phone: Start: 03-20-2023 Radiologic exam chest 2 views Kwadwo Mccray APRN.PILOT PLANT TECHNICIAN Work Phone: Start: 04-19-[address] of whole body Dr Janet Donald Work Phone: Start: 03-30-2022 Diagnostic mammograp hy computer-aided detcj uni Chino Ambrose MD Work Phone: Start: 03-22-2022 US BREAST BIOPSY LEF T (POC) SURG USE ONLY Chino Ambrose MD Work Phone: Start: 03-15-2022 Diagnostic mammograp hy computer-aided detcj bi Ethan Donald MD Work Phone: Start: 12-03-2021 Plain chest X-ray Start: 12-03-2021 CT of head without contrast Start: 04-06-2017 End: 04-06-2017 WEATHERIZATION COORDINATOR Conrad Green NP Work Phone: Start: 04-06-2017 End: 04-06-2017 Follow Up Appt 1 year Conrad Green NP Work Phone: Start: 04-06-2016 End: 04-06-2016 ELIJAH Monsalve MD Start: 04-06-2016 End: 04-06-2016 Follow Up Appt 1 year Boyd Monsalve MD Start: 04-08-2015 End: 04-08-2015 ELIJAH Monsalve MD Start: 04-08-2015 End: 05-25-2015 [facility] Boyd Monsalve MD Start: 04-08-2015 End: 04-08-2015 Follow Up Appt 1 year Byod Monsalve MD Start: 04-09-2014 End: 04-09-2014 ELIJAH Monsalve MD Start: 04-09-2014 End: 04-09-2014 Follow Up Appt 1 year Boyd Monsalve MD Start: 04-03-2013 End: 04-03-2013 Follow Up Appt 6 months Adriane Babb Start: 04-03-2013 End: 04-03-2013 [facility] Boyd Monsalve MD Start: 01-07-2013 End: 01-07-2013 WEATHERIZATION COORDINATOR Brandie Sauceda PA-C Work Phone: Start: 01-07-2013 End: 01-07-2013 Follow Up Appt Other Brandie gibbs PA-C Work Phone: Start: 10-03-2012 End: 10-03-2012 ELIJAH Sauceda PA-C Work Phone: Start: 10-03-2012 End: 10-03-2012 Follow Up Appt 3 months Brandie roy PA-C Work Phone: Start: 10-03-2012 End: 10-03-2012 Follow Up Appt 6 months Brandie roy PA-C Work Phone: Start: 10-03-2012 End: 10-03-2012 MMM Brandie Sauceda PA-C Work Phone: Start: 08-22-2012 End: 11-14-2012 Cardiac Rehab Brandie Sauceda PA-C Work Phone: Start: 08-22-2012 End: 09-24-2012 Chest x-ray Brandie Sauceda PA-C Work Phone: Start: 08-22-2012 End: 08-22-2012 Follow Up Appt 6 weeks Brandie perez PA-C Work Phone: Start: 08-22-2012 End: 08-22-2012 MMM Brandie Sauceda PA-C Work Phone: Start: 08-01-2012 End: 08-07-2012 Follow Up Appt Other Brandie gibbs PA-C Work Phone: Start: 08-01-2012 End: 08-07-2012 MM Brandie Sauceda PA-C Work Phone: Start: 07-19-2012 End: 08-07-2012 *BMP Boyd Monsalve MD Start: 07-19-2012 End: 08-07-2012 CBC W Auto Differential panel - Blood Boyd Monsalve MD Start: 07-09-2012 End: 07-09-2012 Admit Boyd Monsalve MD Start: 07-09-2012 End: 08-22-2012 WEATHERIZATION COORDINATOR Boyd Monsalve MD Start: 07-09-2012 End: 08-07-2012 Ecg routine ecg w/least 12 lds w/i&r Boyd Monsalve MD Start: 07-09-2012 End: 08-22-2012 Follow Up Appt 2 months Adriane Babb Start: 03-28-2012 End: 03-28-2012 Ecg routine ecg w/least 12 lds w/i&r Boyd Monsalve MD Start: 03-28-2012 End: 03-28-2012 Echocardiography Boyd Monsalve MD Start: 03-28-2012 End: 03-28-2012 Follow Up Appt 2 months Adriane Babb Start: 03-28-2012 End: 04-01-2012 Natriuretic peptide B [Mass/volume] in Blood Boyd Monsalve MD Start: 11-21-2011 End: 11-21-2011 Follow Up Appt 4 months Adriane Babb Start: 11-21-2011 End: 03-28-2012 Natriuretic peptide B [Mass/volume] in Blood Boyd Monsalve MD Start: 09-01-2011 End: 09-12-2011 Transesophageal echocardiogram (ELISA) Boyd Monsalve MD Start: 08-21-2011 End: 08-23-2011 *BMP Boyd Monsalve MD Start: 08-21-2011 End: 08-23-2011 CBC W Auto Differential panel - Blood Boyd Monsalve MD Start: 08-21-2011 End: 08-23-2011 Ecg routine ecg w/least 12 lds w/i&r Boyd Monsalve MD Start: 08-21-2011 End: 09-08-2011 Left & Right Heart Cath Karlie Tang RN Start: 08-21-2011 End: 08-21-2011 Nurse Teaching (no charge) Boyd Monsalve MD Start: 08-09-2011 End: 08-14-2011 Echocardiography Boyd Monsalve MD Start: 08-09-2011 End: 08-09-2011 Follow Up Appt 3 months Adriane Babb Plan of Treatment Date Care Activity Detail Author Start: 11-26-2027 Diabetes Screening Diabetes Screenin g [facility] Start: 11-14-2026 Diabetes Screening Diabetes Screenin g [facility] Start: 05-22-2026 Diabetes Screening Diabetes Screenin g [facility] Start: 03-20-2026 Diabetes Screening Diabetes Screenin g [facility] Start: 02-13-2026 Diabetes Screening Diabetes Screenin g [facility] Start: 11-28-2025 Anxiety Screening Anxiety Screening [facility] Start: 11-28-2025 Depression Screening Depression Scre ening [facility] Start: 07-23-2025 Urine microalbumin profile [facility] Start: 06-05-2025 End: 06-05-2025 Patient encounter procedure 06/05/2025 2:40 PM EST Office Visit [facility] [address] [place] [id number] Ethan Donald MD [address] [place], [place] [id number] 6 mo follow up [facility] Comment on above: 6 mo follow up Start: 05-27-2025 RSV Vaccine (1 - 1-d ose 75+ series) RSV Vaccine (1 - 1-dose 75+ series) [facility] Comment on above: Postponed from 04/26 (Declined at this time) Start: 05-03-2025 DIABETES SCREEN DIABETES SCREEN [facility] Start: 05-03-2025 Diabetes Screening Diabetes Screenin g [facility] Start: 01-19-2025 Influenza vaccination Influenza Vacc ine (#1) [facility] Start: 11-28-2024 End: 11-28-2024 Patient encounter procedure 11/28/2024 3:20 PM EDT Office Visit [facility] [address] [place] [id number] Ethan Donald MD [address] [place], [place] [id number] Medicare Wellness [facility] Comment on above: Medicare Wellness Start: 11-28-2024 End: 02-27-2025 Hemoglobin A1c in Blood [facility] Work Phone: Comment on above: Expected: 11/28/2024 , Expires: 02/27/2025 Start: 11-24-2024 End: 02-23-2025 CBC W Auto Differential panel - Blood COMPLETE BLOOD COUNT AND DIFFERENTIAL Lab Routine Benign hypertension Expected: 11/24/2024, Expires: 02/23/2025 [facility] Work Phone: Comment on above: Expected: 11/24/2024 , Expires: 02/23/2025 Start: 11-24-2024 End: 02-23-2025 Comprehensive metabolic 2000 panel - Serum or Plasma COMPREHENSIVE METABOLIC PANEL Lab Routine Benign hypertension Expected: 11/24/2024, Expires: 02/23/2025 [facility] Comment on above: Expected: 11/24/2024 , Expires: 02/23/2025 Start: 11-24-2024 End: 02-23-2025 Thyrotropin [Units/volume] in Serum or Plasma THYROID STIMULATING HORMONE Lab Routine Acquired hypothyroidism Expected: 11/24/2024, Expires: 02/23/2025 [facility] Comment on above: Expected: 11/24/2024 , Expires: 02/23/2025 Start: 11-19-2024 Anxiety Screening Anxiety Screening [facility] Start: 11-19-2024 Depression Screening Depression Scre ening [facility] Start: 05-23-2024 End: 05-23-2024 Patient encounter procedure 05/23/2024 4:00 PM EST Office Visit [facility] [address] [place] [id number] Ethan Donald MD [address] [place] [id number] 6 month follow up. [facility] Comment on above: 6 month follow up. Start: 05-22-2024 RSV Vaccine (1 - 1-d ose 60+ series) RSV Vaccine (1 - 1-dose 60+ series) [facility] Comment on above: Postponed from 04/26 (Declined at this time) Start: 05-22-2024 RSV Vaccine (1 - 1-d ose 75+ series) RSV Vaccine (1 - 1-dose 75+ series) [facility] Comment on above: Postponed from 04/26 (Declined at this time) Start: 04-16-2024 End: 04-16-2024 Patient encounter procedure General Surgery Comment on above: follow up (Breast) Yearly follow up: Imelda thomson. Mammo scheduled 04/10/24. ISABEL Start: 04-15-2024 End: 04-15-2024 Patient encounter procedure 04/15/2024 2:00 PM EST Office Visit General Surgery [address] [place] [address] Chino Ambrose MD [address] [phone] follow up General Surgery Comment on above: follow up Start: 04-10-2024 End: 05-09-2024 YANET SCREENING W LESLIE YANET SCREENING W LESLIE Radiology Routine Malignant neoplasm of left breast in female, estrogen receptor positive, unspecified site of breast (HCC) Expected: 04/10/2024, Expires: 05/09/2024 [facility] Work Phone: Comment on above: Expected: 04/10/2024 , Expires: 05/09/2024 Start: 04-10-2024 End: 04-10-2024 Patient encounter procedure 04/10/2024 11:30 AM EST Appointment Mammogram [address] [place] [address] Malignant neoplasm of left breast in female, estrogen receptor positive, unspecified site of breast (HCC) [C50.912, Z17.0] Mammogram Comment on above: 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, estrogen receptor positive, unspecified site of breast (HCC) [C50.912, Z17.0] Start: 03-27-2024 End: 03-27-2024 Patient encounter procedure 03/27/2024 2:40 PM EST Office Visit [facility] [address] [place], [place] [address] Yelena Mera, SAFETY COUNSELOR.PILOT PLANT TECHNICIAN [address] [place] [address] 1 week wound check [facility] [place] Comment on above: 1 week wound check Start: 03-19-2024 End: 03-19-2024 Patient encounter procedure 03/19/2024 5:00 PM EDT Office Visit [facility] [place] [address] [place], [place] [phone] Yelena Mera APRN.PILOT PLANT TECHNICIAN [address] [place] [address] 1 week wound check [facility] [place] Comment on above: 1 week wound check Start: 01-20-2024 Influenza vaccination Influenza Vacc ine (#1) [facility] Start: 11-20-2023 End: 11-20-2023 Patient encounter procedure 11/20/2023 2:40 PM EDT Office Visit [facility] [place] [address] [place] [address] Ethan Donald MD [address] [place] [address] 6 mth f/u [facility] [place] Comment on above: 6 mth f/u Start: 11-14-2023 End: 02-13-2024 Comprehensive metabolic 2000 panel - Serum or Plasma COMPREHENSIVE METABOLIC PANEL Lab Routine Benign hypertension Expected: 11/14/2023, Expires: 02/13/2024 [facility] Comment on above: Expected: 11/14/2023 , Expires: 02/13/2024 Start: 11-14-2023 End: 02-13-2024 Lipid 1996 panel - Serum or Plasma LIPID PANEL BASIC Lab Routine Hyperlipidemia LDL goal <100 Expected: 11/14/2023, Expires: 02/13/2024 [facility] Comment on above: Expected: 11/14/2023 , Expires: 02/13/2024 Start: 11-14-2023 End: 02-13-2024 Thyrotropin [Units/volume] in Serum or Plasma THYROID STIMULATING HORMONE Lab Routine Acquired hypothyroidism Expected: 11/14/2023, Expires: 02/13/2024 [facility] Work Phone: Comment on above: Expected: 11/14/2023 , Expires: 02/13/2024 Start: 08-20-2023 DIABETES SCREEN DIABETES SCREEN [facility] Start: 05-21-2023 Advance Directive Discussion Advance Directive Discussion [facility] Start: 05-21-2023 Behavioral Health Screening Behavioral Health Screening [facility] Start: 04-25-2023 Patient discharge [facility] Start: 04-22-2023 [facility] Start: 04-21-2023 [facility] Start: 04-19-2023 End: 04-20-2023 [facility] Start: 04-19-2023 Ambulation therapy management [facility] Start: 04-19-2023 Application of device W [facility] Start: 04-19-2023 Exercises [facility] Start: 04-19-2023 Following clinical pathway protocol [facility] Start: 04-19-2023 Introduction of urin maxwell catheter [facility] Start: 04-19-2023 Neurovascular assessment [facility] Start: 04-19-2023 Oxygen therapy [facility] Start: 04-19-2023 Patient education [facility] Start: 04-19-2023 Provision of activit y privileges [facility] Start: 04-19-2023 Recommendation to continue with treatment [facility] Start: 04-19-2023 Referral to occupati onal therapist [facility] Start: 04-19-2023 Referral to service [facility] Start: 04-19-2023 Skin care [facility] Start: 04-19-2023 Vital signs measurements [facility] Start: 04-19-2023 Wound care [facility] Start: 04-18-2023 Measuring intake and output [facility] Start: 04-18-2023 Measuring intake and output [facility] Start: 04-18-2023 Incentive spirometry [facility] Start: 04-18-2023 Blood chemistry [facility] Start: 04-18-2023 Measuring intake and output [facility] Start: 04-17-2023 Application of intermittent pneumatic compression device [facility] Start: 11-28-2023 Following clinical pathway protocol [facility] Start: 04-17-2023 Application of ice collar, cap or bag [facility] Start: 04-17-2023 Assessment of risk o f venous thromboembolism [facility] Start: 04-17-2023 Bedrest [facility] Start: 04-17-2023 Consultation [facility] Start: 04-17-2023 Documentation procedure [facility] Start: 04-17-2023 Insertion of cathete r into peripheral vein [facility] Start: 04-17-2023 Neurovascular assessment [facility] Start: 04-17-2023 Providing care accor ding to standard [facility] Start: 04-17-2023 Referral to occupati onal therapist [facility] Start: 04-17-2023 Referral to service [facility] Start: 04-17-2023 Skin care [facility] Start: 04-17-2023 Vitamin D, 25-hydrox y measurement [facility] Start: 04-17-2023 [facility] Start: 04-17-2023 Measuring intake and output [facility] Start: 04-17-2023 Verification routine [facility] Start: 04-17-2023 Admission procedure [facility] Start: 04-04-2023 End: 09-02-2023 Diagnostic mammography computer-aided detcj bi [facility] Radiology Routine Malignant neoplasm of left breast in female, estrogen receptor positive, unspecified site of breast (HCC) Expected: 04/04/2023, Expires: 09/02/2023 [facility] Work Phone: Comment on above: Expected: 04/04/2023 , Expires: 09/02/2023 Start: 02-12-2023 End: 04-14-2023 Cobalamin (Vitamin B12) [Mass/volume] in Serum or Plasma VITAMIN B12 BLOOD Lab Routine Macrocytosis Expected: 02/12/2023, Expires: 04/14/2023 [facility] Work Phone: Comment on above: Expected: 02/12/2023 , Expires: 04/14/2023 Start: 02-12-2023 End: 04-14-2023 Folate [Mass/volume] in Serum or Plasma FOLATE SERUM Lab Routine Macrocytosis Expected: 02/12/2023, Expires: 04/14/2023 [facility] Work Phone: Comment on above: Expected: 02/12/2023 , Expires: 04/14/2023 Start: 02-12-2023 End: 04-14-2023 Hemoglobin A1c in Blood HGB A1C Lab Routine Hyperglycemia Expected: 02/12/2023, Expires: 04/14/2023 [facility] Work Phone: Comment on above: Expected: 02/12/2023 , Expires: 04/14/2023 Start: 02-09-2023 End: 04-11-2023 Thyrotropin [Units/volume] in Serum or Plasma TSH BLD Lab Routine Acquired hypothyroidism Expected: 02/09/2023, Expires: 04/11/2023 [facility] Work Phone: Comment on above: Expected: 02/09/2023 , Expires: 04/11/2023 Start: 01-19-2023 Influenza vaccination Influenza Vacc ine (#1) [facility] Start: 11-17-2022 Influenza vaccination INFLUENZA (#1) [facility] Comment on above: Postponed from 01/19 (Declined at this time) Start: 07-28-2022 End: 09-27-2022 Basic metabolic 2000 panel - Serum or Plasma BASIC METABOLIC PNL Lab Routine Benign hypertension Expected: 07/28/2022, Expires: 09/27/2022 [facility] Work Phone: Comment on above: Expected: 07/28/2022 , Expires: 09/27/2022 Start: 07-28-2022 End: 09-27-2022 Lipid 1996 panel - Serum or Plasma LIPID PANEL BASIC Lab Routine Hyperlipidemia LDL goal <100 Expected: 07/28/2022, Expires: 09/27/2022 [facility] Work Phone: Comment on above: Expected: 07/28/2022 , Expires: 09/27/2022 Start: 07-28-2022 End: 09-27-2022 Thyrotropin [Units/volume] in Serum or Plasma TSH BLD Lab Routine Hyperlipidemia LDL goal <100 Expected: 07/28/2022, Expires: 09/27/2022 [facility] Work Phone: Comment on above: Expected: 07/28/2022 , Expires: 09/27/2022 Start: 05-21-2022 ADVANCE DIRECTIVE DISCUSSION ADVANCE DIRECTIVE DISCUSSION [facility] Start: 05-21-2022 DEPRESSION ASSESSMENT DEPRESSION ASS ESSMENT [facility] Start: 02-15-2022 End: 04-17-2022 25-hydroxyvitamin D3 [Mass/volume] in Serum or Plasma VITAMIN D 25 HYDROXY Lab Routine High serum vitamin D Vitamin D deficiency, unspecified Expected: 02/15/2022, Expires: 04/17/2022 [facility] Work Phone: Comment on above: Expected: 02/15/2022 , Expires: 04/17/2022 Start: 02-15-2022 End: 04-17-2022 Cobalamin (Vitamin B12) [Mass/volume] in Serum or Plasma VITAMIN B12 BLOOD Lab Routine Macrocytosis Expected: 02/15/2022, Expires: 04/17/2022 [facility] Work Phone: Comment on above: Expected: 02/15/2022 , Expires: 04/17/2022 Start: 02-15-2022 End: 04-17-2022 Folate [Mass/volume] in Serum or Plasma FOLATE SERUM Lab Routine Macrocytosis Expected: 02/15/2022, Expires: 04/17/2022 [facility] Work Phone: Comment on above: Expected: 02/15/2022 , Expires: 04/17/2022 Start: 02-14-2022 End: 04-16-2022 25-hydroxyvitamin D3 [Mass/volume] in Serum or Plasma VITAMIN D 25 HYDROXY Lab Routine Vitamin D deficiency Expected: 02/14/2022, Expires: 04/16/2022 [facility] Work Phone: Comment on above: Expected: 02/14/2022 , Expires: 04/16/2022 Start: 02-14-2022 End: 02-14-2023 CBC W Auto Differential panel - Blood CBC + DIFF Lab Routine Vertigo Expected: 02/14/2022, Expires: 02/14/2023 [facility] Work Phone: Comment on above: Expected: 02/14/2022 , Expires: 02/14/2023 Start: 02-14-2022 End: 02-14-2023 Comprehensive metabolic 2000 panel - Serum or Plasma COMP METABOLIC PANEL Lab Routine Hyperlipidemia LDL goal <100 Expected: 02/14/2022, Expires: 02/14/2023 [facility] Work Phone: Comment on above: Expected: 02/14/2022 , Expires: 02/14/2023 Start: 02-14-2022 End: 02-14-2023 Lipid 1996 panel - Serum or Plasma LIPID PANEL BASIC Lab Routine Hyperlipidemia LDL goal <100 Expected: 02/14/2022, Expires: 02/14/2023 [facility] Work Phone: Comment on above: Expected: 02/14/2022 , Expires: 02/14/2023 Start: 02-14-2022 End: 04-16-2022 Thyrotropin [Units/volume] in Serum or Plasma TSH BLD Lab Routine Acquired hypothyroidism Expected: 02/14/2022, Expires: 04/16/2022 [facility] Work Phone: Comment on above: Expected: 02/14/2022 , Expires: 04/16/2022 Start: 01-19-2022 Influenza vaccination INFLUENZA (#1) [facility] Start: 12-04-2021 Patient discharge [facility] Work Phone: Start: 12-04-2021 Care planning and pr oblem solving actions [facility] Work Phone: Start: 12-04-2021 Aspiration precautions [facility] Work Phone: Start: 12-04-2021 Assessment of risk o f venous thromboembolism [facility] Work Phone: Start: 12-04-2021 Continuous positive airway pressure ventilation treatment [facility] Work Phone: Start: 12-04-2021 Continuous pulse oximetry [facility] Work Phone: Start: 12-04-2021 Fall prevention [facility] Work Phone: Start: 12-04-2021 Insertion of cathete r into peripheral vein [facility] Work Phone: Start: 12-04-2021 Introduction of urin maxwell catheter [facility] Work Phone: Start: 12-04-2021 Measuring intake and output [facility] Work Phone: Start: 12-04-2021 Oxygen therapy [facility] Work Phone: Start: 12-04-2021 Providing care accor ding to standard [facility] Work Phone: Start: 12-04-2021 Referral to occupati onal therapist [facility] Work Phone: Start: 12-04-2021 Referral to service [facility] Work Phone: Start: 12-04-2021 [facility] Work Phone: Start: 12-04-2021 Following clinical pathway protocol [facility] Work Phone: Start: 12-03-2021 Admission procedure [facility] Work Phone: Start: 12-03-2021 [facility] Work Phone: Start: 05-21-2021 ADVANCE DIRECTIVE DISCUSSION ADVANCE DIRECTIVE DISCUSSION [facility] Start: 05-21-2021 DEPRESSION [facility]ESSMENT [facility] Start: 04-09-2018 End: 04-09-2018 Appointment Appointment [facility] Work Phone: Start: 04-06-2017 End: 04-06-2017 WEATHERIZATION COORDINATOR WEATHERIZATION COORDINATOR [facility] Work Phone: Start: 04-06-2017 End: 04-06-2017 Follow Up Appt 1 year Follow Up Appt 1 year [facility] Work Phone: Start: 04-06-2017 End: 04-06-2017 Appointment Appointment [facility] Work Phone: Start: 04-06-2016 End: 04-06-2016 WEATHERIZATION COORDINATOR WEATHERIZATION COORDINATOR [facility] Work Phone: Start: 04-06-2016 End: 04-06-2016 Follow Up Appt 1 year Follow Up Appt 1 year [facility] Work Phone: Start: 04-08-2015 End: 04-08-2015 WEATHERIZATION COORDINATOR WEATHERIZATION COORDINATOR [facility] Work Phone: Start: 04-08-2015 End: 04-08-2015 Echocardiography Echocardiogram (complete) [facility] Work Phone: Start: 04-08-2015 End: 04-08-2015 Follow Up Appt 1 year Follow Up Appt 1 year [facility] Work Phone: Start: 04-09-2014 End: 04-09-2014 WEATHERIZATION COORDINATOR WEATHERIZATION COORDINATOR [facility] Work Phone: Start: 04-09-2014 End: 04-09-2014 Follow Up Appt 1 year Follow Up Appt 1 year [facility] Work Phone: Start: 12-24-2013 Screening for osteoporosis Bone Density Screening [facility] Start: 10-07-2013 End: 10-07-2013 WEATHERIZATION COORDINATOR WEATHERIZATION COORDINATOR [facility] Work Phone: Start: 10-07-2013 End: 10-07-2013 Follow Up Appt 6 months Follow Up Appt 6 months [facility] Work Phone: Start: 04-03-2013 End: 04-03-2013 Follow Up Appt 6 months Follow Up Appt 6 months [facility] Work Phone: Start: 04-03-2013 End: 04-03-2013 MMM MMM [facility] Work Phone: Start: 01-07-2013 End: 01-07-2013 WEATHERIZATION COORDINATOR WEATHERIZATION COORDINATOR [facility] Work Phone: Start: 01-07-2013 End: 01-07-2013 Follow Up Appt Other Follow Up Appt Other [facility] Work Phone: Start: 10-03-2012 End: 10-03-2012 WEATHERIZATION COORDINATOR WEATHERIZATION COORDINATOR [facility] Work Phone: Start: 10-03-2012 End: 10-03-2012 Follow Up Appt 3 months Follow Up Appt 3 months [facility] Work Phone: Start: 10-03-2012 End: 10-03-2012 Follow Up Appt 6 months Follow Up Appt 6 months [facility] Work Phone: Start: 10-03-2012 End: 10-03-2012 MMM MMM [facility] Work Phone: Start: 08-22-2012 End: 08-22-2012 Cardiac Rehab Cardiac Rehab [facility] Work Phone: Start: 08-22-2012 End: 09-24-2012 Chest x-ray X-Ray, Chest, PA & Lateral [facility] Work Phone: Start: 08-22-2012 End: 08-22-2012 Follow Up Appt 6 weeks Follow Up Appt 6 weeks [facility] Work Phone: Start: 08-22-2012 End: 08-22-2012 MMM MMM [facility] Work Phone: Start: 08-01-2012 End: 08-07-2012 Follow Up Appt Other Follow Up Appt Other [facility] Work Phone: Start: 08-01-2012 End: 08-07-2012 MMM MMM [facility] Work Phone: Start: 07-19-2012 End: 08-07-2012 *BMP *BMP [facility] Work Phone: Start: 07-19-2012 End: 08-07-2012 CBC W Auto Differential panel - Blood *CBC without Diff [facility] Work Phone: Start: 07-09-2012 End: 08-22-2012 WEATHERIZATION COORDINATOR WEATHERIZATION COORDINATOR [facility] Work Phone: Start: 07-09-2012 End: 08-07-2012 Ecg routine ecg w/least 12 lds w/i&r EKG (In office) [employer] Work Phone: Start: 07-09-2012 End: 08-22-2012 Follow Up Appt 2 months Follow Up Appt 2 months [employer] Work Phone: Start: 03-28-2012 End: 04-01-2012 BNP *Brain Natriuretic Peptide BNP [employer] Work Phone: Start: 03-28-2012 End: 03-28-2012 Ecg routine ecg w/least 12 lds w/i&r EKG (In office) [employer] Work Phone: Start: 03-28-2012 End: 03-28-2012 Echocardiography Echocardiogram (complete) [employer] Work Phone: Start: 03-28-2012 End: 03-28-2012 Follow Up Appt 2 months Follow Up Appt 2 months [employer] Work Phone: Start: 11-21-2011 End: 03-28-2012 BNP *Brain Natriuretic Peptide BNP [employer] Work Phone: Start: 11-21-2011 End: 11-21-2011 Follow Up Appt 4 months Follow Up Appt 4 months [employer] Work Phone: Start: 09-01-2011 End: 09-04-2011 Transesophageal echocardiogram (ELISA) Transesophageal echocardiogram (ELISA) [employer] Work Phone: Start: 08-21-2011 End: 08-23-2011 *BMP *BMP [employer] Work Phone: Start: 08-21-2011 End: 08-23-2011 CBC W Auto Differential panel - Blood *CBC without Diff [employer] Work Phone: Start: 08-21-2011 End: 08-23-2011 Ecg routine ecg w/least 12 lds w/i&r EKG (In office) [employer] Work Phone: Start: 08-21-2011 End: 09-08-2011 Left & Right Heart Cath Left & Right Heart Cath [facility] Work Phone: Start: 08-09-2011 End: 08-09-2011 Echocardiography Echocardiogram (complete) [facility] Work Phone: Start: 08-09-2011 End: 08-09-2011 Follow Up Appt 3 months Follow Up Appt 3 months [facility] Work Phone: Start: 1997 RSV Vaccine (1 - 1-d ose 60+ series) RSV Vaccine (1 - 1-dose 60+ series) [facility] Start: 1935 COVID-19 VACCINE (#1) COVID-19 VACCI NE (#1) [facility] Alanine aminotransfe rase [Enzymatic activity/volume] in Serum or Plasma [facility] Albumin [Mass/volume ] in Serum or Plasma [facility] Alkaline phosphatase [Enzymatic activity/volume] in Serum or Plasma [facility] Anion gap measurement [facility] Anion gap measurement [facility] Aspartate aminotransferase [Enzymatic activity/volume] in Serum or Plasma [facility] Bilirubin, total measurement [facility] BUN/Creatinine ratio [facility] BUN/Creatinine ratio [facility] Calcium [Mass/volume ] in Serum or Plasma [facility] Calcium [Mass/volume ] in Serum or Plasma [facility] Carbon dioxide, tota l [Moles/volume] in Serum or Plasma [facility] Carbon dioxide, tota l [Moles/volume] in Serum or Plasma [facility] Cardiac event recording [facility] Work Phone: Chloride [Moles/volu me] in Serum or Plasma [facility] Chloride [Moles/volu me] in Serum or Plasma [facility] Creatinine [Moles/vo lume] in Serum or Plasma [facility] Creatinine [Moles/vo lume] in Serum or Plasma [facility] DBT Breast - bilater al screening YANET SCREENING W LESLIE Radiology Routine Malignant neoplasm of left breast in female, estrogen receptor positive, unspecified site of breast (HCC) 04/10/2024 11:27 AM EST [facility] Work Phone: End: 03-16-2023 Diagnostic mammography computer-aided detcj uni [facility] Radiology Routine Mass of left breast, unspecified quadrant Disorder of breast, unspecified 1 Occurrences starting 02/14/2022 until 03/16/2023 [facility] Work Phone: Comment on above: 1 Occurrences starti ng 02/14/2022 until 03/16/2023 End: 04-21-2023 Diagnostic mammography computer-aided detcj uni [facility] DIAGNOSTIC LT Radiology Routine Subareolar mass of left breast 1 Occurrences starting 03/22/2022 until 04/21/2023 [facility] Work Phone: Comment on above: 1 Occurrences starti ng 03/22/2022 until 04/21/2023 Glucose [Mass/volume ] in Serum or Plasma [facility] Glucose [Mass/volume ] in Serum or Plasma [facility] Hematocrit [Volume Fraction] of Blood [facility] Hemoglobin [Mass/vol ume] in Blood [facility] Leukocytes [#/volume ] in Blood [facility] Mean corpuscular hemoglobin concentration determination [facility] Mean corpuscular hemoglobin determination [facility] Measurement of renal function [facility] Measurement of renal function [facility] Neutrophil count [facility] Neutrophil percent differential count [facility] Patient referral [facility] Work Phone: End: 04-29-[address] attenuation whole body NM PET/CT WHOLE BODY INITIAL Radiology Routine Malignant neoplasm of overlapping sites of left breast in female, estrogen receptor positive (HCC) 1 Occurrences starting 03/30/2022 until 04/29/2023 [facility] Work Phone: Comment on above: 1 Occurrences starti ng 03/30/2022 until 04/29/2023 Platelets [#/volume] in Blood [facility] Potassium [Moles/vol ume] in Serum or Plasma [facility] Potassium [Moles/vol ume] in Serum or Plasma [facility] Red blood cell count [facility] Red cell distributio n width determination [facility] Sodium [Moles/volume ] in Serum or Plasma [facility] Sodium [Moles/volume ] in Serum or Plasma [facility] SURGICAL PATHOLOGY SURGICAL PATH OLOGY Lab Routine Subareolar mass of left breast 03/22/2022 4:08 PM EDT [facility] Work Phone: Total protein measurement [facility] Urea nitrogen [Mass/volume] in Serum or Plasma [facility] Urea nitrogen [Mass/volume] in Serum or Plasma [facility] End: 03-16-2023 Us breast uni real time with image limited US BREAST LTD LT Radiology Routine Mass of left breast, unspecified quadrant Disorder of breast, unspecified 1 Occurrences starting 02/14/2022 until 03/16/2023 [facility] Work Phone: Comment on above: 1 Occurrences starti ng 02/14/2022 until 03/16/2023 [facility] Immunizations Immunization Date Immunization Notes Care Provider [facility] 01-17-2024 influenza (aIIV4) vaccine, age 65+ yr, quadrivalent, PF (FLUAD QUAD) Ethan Donald MD Work Phone: [facility] 01-17-2024 Seasonal trivalent influenza vaccine, adjuvanted, preservative free Ethan Donald MD Work Phone: [facility] 01-17-2024 influenza virus vacc ine, unspecified formulation Ethan Donald MD Work Phone: [facility] 02-10-2023 influenza (aIIV4) vaccine, age 65+ yr, quadrivalent, PF (FLUAD QUAD) Ethan Donald MD Work Phone: [facility] 02-10-2023 influenza virus vacc ine, unspecified formulation Ethan Donald MD Work Phone: [facility] 03-02-2022 influenza (aIIV4) vaccine, age 65+ yr, quadrivalent, PF (FLUAD QUAD) Ethan Donald MD Work Phone: [facility] 03-02-2022 influenza, high dose seasonal, preservative-free Ethan Donald MD Work Phone: [facility] 03-02-2022 influenza virus vacc ine, unspecified formulation Ethan Donald MD Work Phone: [facility] 01-08-2021 influenza (aIIV4) vaccine, age 65+ yr, quadrivalent, PF (FLUAD QUADRIVALENT) Ethan Donald MD Work Phone: [facility] 01-08-2021 influenza, high dose seasonal, preservative-free Ethan Donald MD Work Phone: [facility] 02-19-2020 influenza (aIIV4) vaccine, age 65+ yr, quadrivalent, PF (FLUAD QUADRIVALENT) Ethan Donald MD Work Phone: [facility] 02-19-2020 influenza, high dose seasonal, preservative-free Ethan Donald MD Work Phone: [facility] 08-04-2019 tuberculin skin test ; purified protein derivative solution, intradermal Xr [place] Work Phone: [facility] 07-31-2019 pneumococcal conjuga te vaccine, 13 valent Ethan Donald MD Work Phone: [facility] 07-31-2019 pneumococcal polysaccharide vaccine, 23 valent Ethan Donald MD Work Phone: [facility] 07-31-2019 Pneumococcal Vaccine [facility] Work Phone: 07-31-2019 pneumococcal vaccine , unspecified formulation Dr. Ethan Donald Work Phone: [facility] 07-25-2019 tuberculin skin test ; purified protein derivative solution, intradermal Xr [place] Work Phone: [facility] 01-27-2019 influenza, high dose seasonal, preservative-free Ethan Donald MD Work Phone: [facility] 01-27-2019 influenza, injectabl e, quadrivalent, preservative free Dr. Ethan Donald Work Phone: [facility] 01-27-2019 influenza, seasonal, injectable [facility] 01-25-2018 influenza, high dose seasonal, preservative-free Ethan Donald MD Work Phone: [facility] 07-24-2015 tetanus and diphther ia toxoids, adsorbed, preservative free, for adult use (2 Lf of tetanus toxoid and 2 Lf of diphtheria toxoid) Ethan Donald MD Work Phone: [facility] 03-19-2015 influenza, high dose seasonal, preservative-free Ethan Donald MD Work Phone: [facility] 02-14-2012 influenza virus vacc ine, unspecified formulation Ethan Donald MD Work Phone: [facility] 12-25-2011 tetanus and diphther ia toxoids, adsorbed, preservative free, for adult use (2 Lf of tetanus toxoid and 2 Lf of diphtheria toxoid) Ethan Donald MD Work Phone: [facility] 02-25-2010 influenza virus vacc ine, whole virus Ethan Donald MD Work Phone: [facility] 02-14-2009 influenza virus vacc ine, unspecified formulation Ethan Donald MD Work Phone: [facility] 02-12-2009 influenza virus vacc ine, whole virus Ethan Donald MD Work Phone: [facility] 03-14-2008 influenza virus vacc ine, whole virus Ethan Donald MD Work Phone: [facility] 04-01-2007 influenza virus vacc ine, unspecified formulation Ethan Donald MD Work Phone: [facility] 03-16-2006 influenza virus vacc ine, whole virus Ethan Donald MD Work Phone: [facility] Work Phone: 07-19-2005 tetanus and diphther ia toxoids, adsorbed, preservative free, for adult use (2 Lf of tetanus toxoid and 2 Lf of diphtheria toxoid) Ethan Donald MD Work Phone: [facility] 03-04-2004 pneumococcal polysaccharide vaccine, 23 valent Ethan Donald MD Work Phone: [facility] 02-19-2004 influenza virus vacc ine, whole virus Ethan Donald MD Work Phone: [facility] Work Phone: 02-19-2004 pneumococcal polysaccharide vaccine, 23 valent [facility] 10-28-1996 diphtheria and tetan us toxoids, adsorbed for pediatric use Ethan Donald MD Work Phone: [facility] Work Phone: 01-17-1991 trivalent poliovirus vaccine, live, oral Ethan Donald MD Work Phone: [facility] Work Phone: 04-03-1986 tuberculin skin test ; purified protein derivative solution, intradermal Xr [place] Work Phone: [facility] 03-23-1966 DTP-Haemophilus influenzae type b conjugate vaccine Ethan Donald MD Work Phone: [facility] Work Phone: 02-03-1960 trivalent poliovirus vaccine, live, oral Ethan Donald MD Work Phone: [facility] Work Phone: 06-14-1959 trivalent poliovirus vaccine, live, oral Ethan Donald MD Work Phone: [facility] Work Phone: 05-19-1959 trivalent poliovirus vaccine, live, oral Ethan Donlad MD Work Phone: [facility] Work Phone: Payers Date Payer Category Payer Self-pay [id number] 2023 Medicare (Managed Care) [employer] [id number] 2022 Private Health Insurance [id number] 2013 Private Health Insurance [id number] 2012 Private Health Insurance [id number] 2002 Medicare [id number] 2002 Medicare [id number] Unknown [id number] Unknown [id number] Unknown [id number] Unknown [id number] Social History Date Type Detail Facility Start: 12-03-2021 End: 04-17-2023 Tobacco smoking status TXIS Unknown if ever smoked [facility] Start: 02-18-2021 Rare [facility] Start: 02-18-2021 None [facility] Start: 02-18-2021 Alone [facility] Start: 02-18-2021 Non-smoker [facility] Start: 1935 Sex Assigned At Female [facility] Start: 12-05-2017 End: 02-14-2022 Tobacco smoking status NHIS Never smoked tobacco [facility] Start: 12-05-2017 End: 02-14-2022 Tobacco use and exposure Smokeless tobacco non-user [facility] Start: 01-05-2021 End: 11-28-2024 Alcohol intake Current drinker of alcohol (finding) [facility] Start: 07-10-2021 History SDOH Alcohol Frequency 1 [facility] Start: 07-10-2021 History SDOH Alcohol Std Drinks 98 [facility] Start: 07-10-2021 History SDOH Social Connections Phone 5 [facility] Start: 07-10-2021 History SDOH Social Connections Get Together 4 [facility] Start: 07-10-2021 History SDOH Social Connections Membership 2 [facility] Start: 07-10-2021 History SDOH Physica l Activity DPW 3 [facility] Start: 01-30-2022 End: 04-21-2022 Exposure to SARS-CoV-2 (event) Not sure [facility] Start: 07-10-2021 End: 02-15-2023 History of Social function [facility] Start: 07-10-2021 End: 02-15-2023 Social connection and isolation panel [facility] Do you belong to any clubs or organizations such as baptism groups, unions, fra[employer] or athletic groups, or school groups? No [facility] Are you now , , , , never or living with a partner? [facility] How often to you hav e a drink containing alcohol? Never [facility] Start: 04-21-2012 How many standard drinks containing alcohol do you have on a typical day? Patient refused [facility] Do you feel stress - tense, restless, nervous, or anxious, or unable to sleep at night because your mind is troubled all the time - these days [OSQ] Not at all [facility] (I/We) worried wheth er (my/our) food would run out before (I/we) got money to buy more. 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, modular ()[id number] FDA Start: 04-19-2023 Primary uncemented hemiarthroplasty of hip (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) Metallic femoral head prosthesis ()[id number] FDA Start: 04-19-2023 Primary uncemented hemiarthroplasty of hip ([id number]) Bipolar femoral head outer component, hemiarthroplasty ()[id number] FDA Start: 04-19-2023 ORIF, ankle 3.5 Cortex Screws FDA Start: 07-09-2019 ORIF, ankle 3.5 Locking Screw FDA Start: 07-09-2019 ORIF, ankle 3.5mm cortex scr ew self tap FDA Start: 07-09-2019 ORIF, ankle One Third Tubula r Plate FDA Start: 07-09-2019 ORIF, ankle 3.5 Cortex Screws FDA Start: 07-09-2019 ORIF, ankle 3.5 Locking Screw FDA Start: 07-09-2019 ORIF, ankle 3.5mm cortex scr ew self tap FDA Start: 07-09-2019 ORIF, ankle One Third Tubula r Plate FDA Start: 07-09-2019 ORIF, ankle 3.5 Cortex Screws FDA Start: 07-09-2019 ORIF, ankle 3.5 Locking Screw FDA Start: 07-09-2019 ORIF, ankle 3.5mm cortex scr ew self tap FDA Start: 07-09-2019 ORIF, ankle One Third Tubula r Plate FDA Start: 07-09-2019 ORIF, ankle 3.5 Cortex Screws FDA Start: 07-09-2019 ORIF, ankle 3.5 Locking Screw FDA Start: 07-09-2019 ORIF, ankle 3.5mm cortex scr ew self tap FDA Start: 07-09-2019 ORIF, ankle One Third Tubula r Plate FDA Start: 07-09-2019 ORIF, ankle 3.5 Cortex Screws FDA Start: 07-09-2019 ORIF, ankle 3.5 Locking Screw FDA Start: 07-09-2019 ORIF, ankle 3.5mm cortex scr ew self tap FDA Start: 07-09-2019 ORIF, ankle One Third Tubula r Plate FDA Start: 07-09-2019 ORIF, ankle 3.5 Cortex Screws FDA Start: 07-09-2019 ORIF, ankle 3.5 Locking Screw FDA Start: 07-09-2019 ORIF, ankle 3.5mm cortex scr ew self tap FDA Start: 07-09-2019 ORIF, ankle One Third Tubula r Plate FDA Start: 07-09-2019 ORIF, ankle 3.5 Cortex Screws FDA Start: 07-09-2019 ORIF, ankle 3.5 Locking Screw FDA Start: 07-09-2019 ORIF, ankle 3.5mm cortex scr ew self tap FDA Start: 07-09-2019 ORIF, ankle One Third Tubula r Plate FDA Start: 07-09-2019 ORIF, ankle 3.5 Cortex Screws FDA Start: 07-09-2019 ORIF, ankle 3.5 Locking Screw FDA Start: 07-09-2019 ORIF, ankle 3.5mm cortex scr ew self tap FDA Start: 07-09-2019 ORIF, ankle One Third Tubula r Plate FDA Start: 07-09-2019 ORIF, ankle 3.5 Cortex Screws FDA Start: 07-09-2019 ORIF, ankle 3.5 Locking Screw FDA Start: 07-09-2019 ORIF, ankle 3.5mm cortex scr ew self tap FDA Start: 07-09-2019 ORIF, ankle One Third Tubula r Plate FDA Start: 07-09-2019 ORIF, ankle 3.5 Cortex Screws FDA Start: 07-09-2019 ORIF, ankle 3.5 Locking Screw FDA Start: 07-09-2019 ORIF, ankle 3.5mm cortex scr ew self tap FDA Start: 07-09-2019 ORIF, ankle One Third Tubula r Plate FDA Start: 07-09-2019 [facility] FDA Start : 05-06-2012 [facility] FDA Start : 05-06-2012 [facility] FDA Start : 05-06-2012 [facility] FDA Start : 05-06-2012 [facility] FDA Start : 05-06-2012 [facility] FDA Start : 05-06-2012 [facility] FDA Start : 05-06-2012 [facility] FDA Start : 05-06-2012 [facility] FDA Start : 05-06-2012 [facility] FDA Start : 05-06-2012 Goals Date Patient Goal Desired Activity /State Functional Status Date Assessment Result Facility 04-25-2023 Functional status Ambulates [facility] Work Phone: 05-04-2022 Are you deaf, or do you have serious difficulty hearing No 05/04/2022 3:09 PM Dorcas Kwon RN No [facility] 05-04-2022 Are you blind, or do you have serious difficulty seeing, even when wearing glasses No 05/04/2022 3:09 PM Dorcas Kwon RN No [facility] 05-04-2022 Do you have serious difficulty walking or climbing stairs No 05/04/2022 3:09 PM Dorcas Kwon RN No [facility] 05-04-2022 Do you have difficul ty dressing or bathing No 05/04/2022 3:09 PM Dorcas Kwon RN No [facility] 05-04-2022 Because of a physica l, mental, or emotional condition, do you have difficulty doing errands alone such as visiting a physician's office or shopping No 05/04/2022 3:09 PM Dorcas Kwon RN No [facility] 12-04-2021 Functional status Bathroom Privilege [facility] Work Phone: Mental Status Date Assessment Result Facility 04-25-2023 Cognitive function Voice/Name [facility] Work Phone: 05-04-2022 Because of a physica l, mental, or emotional condition, do you have serious difficulty concentrating, remembering, or making decisions No 05/04/2022 3:09 PM Dorcas Kwon RN No [facility] 12-04-2021 Cognitive function Voice/Name [facility] Work Phone: Clinical Notes 08-19-2010 to 11-28-2024 Patient Ethan Vilchis MD - 11/28/2024 3:28 PM John Bowen LPN - 11/28/2024 3:06 PM Ethan Chowdhury MD - 05/27/2024 2:00 PM Chino Bush MD - 04/16/2024 2:00 PM EST Note Date & Type Note Facility 11-28-2024 Instructions Ethan Donald MD - 11/28/2024 3:57 PM EDT - Continue your current medications as prescribed: cholestyramine as needed, Lasix once daily, metoprolol daily, and Synthroid daily. - Continue nightly use of your BiPAP machine; your sleep study and pulmonary function test are scheduled at the end of the month. - We added an A1c test to your upcoming labs to check your average blood sugar. - Keep using your cane and moving carefully around your home; your get?up?and?go test was normal. - Maintain your safety precautions--use grab bars at home and wear your seatbelt in the car. 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 - Schedule your next mammogram with Dr. Ambrose in about one year (around March). - Continue dental check-ups and plan ear cleanings with Dr. Ring every six months. - Return in six months, or sooner if any new concerns arise. documented in this encounter [facility] 11-28-2024 Note HNO ID: [id number] Author: ETHAN DONALD MD Service: ? Author Type: Physician Type: Progress Notes Filed: 11/28/2024 16:22 Note Text: Sydney Daigle is a 89 year old female here for a Medicare wellness visit. Medicare Health Risk Assessment General Health good Exercise: Minutes/Day Not recently Exercise: Days/Week 3 x a week usually Alcohol: Daily Use Never Alcohol: Drinks/Day Patient does not drink Alcohol: 6 or more drinks Never Feel off balance Has vertigo Concerns: Teeth/Dentures None. Concerns: Sexual function None. Troubled by feelings none Frequency: Eating healthy diet Yes. ADLs requiring help none Safety precautions in home/vehicle yes Smoke, vape, chews tobacco no Difficulty hearing Deaf in the right ear. Difficulty seeing Wears glasses. Macular degeneration. Current Providers Specialists: I have reviewed specialist-related care of the patient in the medical record. Current care team: Patient Care Team: Ethan Donald MD as PCP - General (Family Medicine) Love Concepcion APRN.[employer]OT [employer] TECHNICIAN as [place] (Family Medicine) Jenny Hart APRN.[employer] TECHNICIAN as [place] (Family Medicine) [facility]-optho Dr Ambrose-surgery. Dr Monsalve-cardiology Dr Paul-pulmonary. Dr Live-Podiatry Dr Anderson-chiropractor. Dr Ring-ENT Medical/Family history review Reviewed and updated problem list, medical/surgical/family/social history, medications, and allergies. Opioid use review Opioid Medications (last 90 days) No data to display Anxiety/Depression screening (Lower risk for depression) (Lower risk for anxiety) Recommendation: no further intervention at this time Cognitive screening See below. Cognitive screening reviewed and Patient has known cognitive impairment. Functional Observation Was the patient's Timed Up AND Go test unsteady or >= 12 seconds? No Advance Care Planning Surrogate decision maker and/or advance care plan documented Measurements BP 108/72 Pulse 77 Ht 155 cm (5' 1.02) Wt 66.2 kg (146 lb) SpO2 95% BMI 27.56 kg/m? Vision Screening: Follows with optometry/ophthalmology ADDITIONAL INFO: Annual Wellness Exam: - General health: Feel good most of the time. - Exercises 3 times a week at [employer]; recently paused due to balance issues. - Denies alcohol consumption. - Denies issues with teeth or dentures; regular dental visits. - Denies concerns with sexual functioning. - Consumes a diet rich in fruits, vegetables, and meats. - Independent in ADLs. - Follows safety precautions in home and vehicle. - Denies tobacco use. - Denies ear pain; sees Dr. Ring (ENT) every 6 months for cerumen removal. - Denies dysphagia. - Denies urinary or bowel issues. - Denies taking pain medications. - Denies chest pain, dyspnea, or edema. - Denies cough or wheezing. - Denies recent weight loss or gain, or excessive fatigue. - Denies polyuria or polydipsia. - Denies recent worsening of memory issues. - Denies recent falls. - Denies anxiety or depression. - Denies dizziness. 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 - Vision is stable; managed by Dr. Car at [facility] for dry macular degeneration. - Uses BiPAP at night; upcoming sleep study and pulmonary function test scheduled. - Recent CMP showed elevated glucose levels. - Recent TSH was 2.1. - Taking cholestyramine PRN, Lasix daily, metoprolol, and Synthroid. - History of osteoporosis; advanced practice registered nurse advised discontinuation of treatment at age 82. - History of partial mastectomy; follow-up with Dr. Fields and mammogram scheduled in March. - Followed by Dr. Monsalve (cardiology) and Dr. Perez (respiratory). - Sees Dr. Live (podiatry) for ingrown toenails. - Sees Dr. Mitzi Anderson (chiropractor). - Uses a cane for ambulation; feels balance is improving. - Completed formal PT for gait improvement. - Recent cognitive assessment showed moderate stress and mild sleep problems; scored 79.2, indicating potential cognitive deficits. ROS: Constitutional: (-) weight loss, (-) weight gain, (-) fatigue Eyes: (-) vision changes Ears/Nose/Mouth/Throat: (+) right ear hearing loss, (-) ear pain, (-) dysphagia Cardiovascular: (-) chest pain, (-) edema Respiratory: (-) shortness of breath, (-) cough, (-) wheeze Gastrointestinal: (-) bowel habit change Genitourinary: (-) urinary frequency Neurological: (+) imbalance, (-) dizziness Psychiatric: (-) anxiety, (-) depressed mood, (-) anhedonia, (-) emotional distress PE: GENERAL: NAD, alert and oriented. SKIN: Unremarkable, no rash or skin lesions. HEAD: Normocephalic. EYES: PERRLA, EOMI, conjunctiva clear. EARS: External ears normal, canals clear, TM's normal. NOSE/SINUSES: Nares normal. Septum midline. OROPHARYNX: Lips, mucosa, and tongue normal, good dentition. No oral lesions noted. NECK: Supple, no lymphadenopathy, normal thyroid, no carotid b (more content not included)... [facility] 11-28-2024 History of Present illness Narrative Images from the original note were not included. Sydney Daigle is a 89 year old female here for a Medicare wellness visit. Medicare Health Risk Assessment General Health good Exercise: Minutes/Day Not recently Exercise: Days/Week 3 x a week usually Alcohol: Daily Use Never Alcohol: Drinks/Day Patient does not drink Alcohol: 6 or more drinks Never Feel off balance Has vertigo Concerns: Teeth/Dentures None. Concerns: Sexual function None. Troubled by feelings none Frequency: Eating healthy diet Yes. ADLs requiring help none Safety precautions in home/vehicle yes Smoke, vape, chews tobacco no Difficulty hearing Deaf in the right ear. Difficulty seeing Wears glasses. Macular degeneration. Current Providers Specialists: I have reviewed specialist-related care of the patient in the medical record. Current care team: Patient Care Team: Ethan Donald MD as PCP - General (Family Medicine) Love Concepcion APRN.[employer]ANT TECHNICIAN as [place] (Family Medicine) Jenny Hart APRN.CNP as [place] (Family Medicine) [facility]-optho Dr Ambrose-surgery. Dr Monsalve-cardiology Dr Paul-pulmonary. Dr Live-Podiatry Dr Anderson-chiropractor. Dr Ring-ENT Medical/Family history review Reviewed and updated problem list, medical/surgical/family/social history, medications, and allergies. Opioid use review Opioid Medications (last 90 days) No data to display Anxiety/Depression screening (Lower risk for depression) (Lower risk for anxiety) Recommendation: no further intervention at this time Cognitive screening See below. Cognitive screening reviewed and Patient has known cognitive impairment. Functional Observation Was the patient's Timed Up & Go test unsteady or >= 12 seconds? No Advance Care Planning Surrogate decision maker and/or advance care plan documented Measurements BP 108/72 Pulse 77 Ht 155 cm (5' 1.02) Wt 66.2 kg (146 lb) SpO2 95% BMI 27.56 kg/m Vision Screening: Follows with optometry/ophthalmology ADDITIONAL INFO: Annual Wellness Exam: - General health: Feel good most of the time. - Exercises 3 times a week at [employer]; recently paused due to balance issues. - Denies alcohol consumption. - Denies issues with teeth or dentures; regular dental visits. - Denies concerns with sexual functioning. - Consumes a diet rich in fruits, vegetables, and meats. - Independent in ADLs. - Follows safety precautions in home and vehicle. - Denies tobacco use. - Denies ear pain; sees Dr. Ring (ENT) every 6 months for cerumen removal. - Denies dysphagia. - Denies urinary or bowel issues. - Denies taking pain medications. - Denies chest pain, dyspnea, or edema. - Denies cough or wheezing. - Denies recent weight loss or gain, or excessive fatigue. - Denies polyuria or polydipsia. - Denies recent worsening of memory issues. - Denies recent falls. - Denies anxiety or depression. - Denies dizziness. 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 - Vision is stable; managed by Dr. Car at [facility] for dry macular degeneration. - Uses BiPAP at night; upcoming sleep study and pulmonary function test scheduled. - Recent CMP showed elevated glucose levels. - Recent TSH was 2.1. - Taking cholestyramine PRN, Lasix daily, metoprolol, and Synthroid. - History of osteoporosis; advanced practice registered nurse advised discontinuation of treatment at age 82. - History of partial mastectomy; follow-up with Dr. Fields and mammogram scheduled in March. - Followed by Dr. Monsalve (cardiology) and Dr. Perez (respiratory). - Sees Dr. Live (podiatry) for ingrown toenails. - Sees Dr. Mitzi Anderson (chiropractor). - Uses a cane for ambulation; feels balance is improving. - Completed formal PT for gait improvement. - Recent cognitive assessment showed moderate stress and mild sleep problems; scored 79.2, indicating potential cognitive deficits. ROS: Constitutional: (-) weight loss, (-) weight gain, (-) fatigue Eyes: (-) vision changes Ears/Nose/Mouth/Throat: (+) right ear hearing loss, (-) ear pain, (-) dysphagia Cardiovascular: (-) chest pain, (-) edema Respiratory: (-) shortness of breath, (-) cough, (-) wheeze Gastrointestinal: (-) bowel habit change Genitourinary: (-) urinary frequency Neurological: (+) imbalance, (-) dizziness Psychiatric: (-) anxiety, (-) depressed mood, (-) anhedonia, (-) emotional distress PE: GENERAL: NAD, alert and oriented. SKIN: Unremarkable, no rash or skin lesions. HEAD: Normocephalic. EYES: PERRLA, EOMI, conjunctiva clear. EARS: External ears normal, canals clear, TM's normal. NOSE/SINUSES: Nares normal. Septum midline. OROPHARYNX: Lips, mucosa, and tongue normal, good dentition. No oral lesions noted. NECK: Supple, no lymphadenopathy, normal thyroid, no carotid bruits. LUNGS: Clear to auscultation bilaterally, no wheezes/rhonchi/rales. HEART: Regular rate and rhythm, 3/6 systolic murmur noted. EXTREMITIES: Normal, no deformities, no skin discoloration, no edema. NEURO: Awake, alert and oriented x3, cranial nerves II-XII grossly intact, normal gait, no involuntary motions. Assessment and Plan: 1. Medicare annual wellness visit, subsequent (Z00.00) - Completed Medicare annual wellness visit. - Discussed general health, exercise, diet, and safety precautions. - Reviewed current medications: cholestyramine as needed, Lasix once daily, metoprolol, and Synthroid. - No issues with ADLs, hearing, or vision; patient wears glasses and is followed by Dr. Car at [facility] for macular degeneration. - No tobacco or alcohol use. - Follow-up in 6 months. 2. Malignant neoplasm of left female breast, unspecified estrogen receptor status, unspecified site of breast (HCC) (C50.912) - S/P left partial mastectomy. - Followed by Dr. Fields; next mammogram scheduled for March. 3. Hyperlipidemia LDL goal <100 (E78.5) - Reviewed current management. 4. Chronic diastolic congestive heart failure (HCC) (I50.32) 5. S/P aortic valve replacement (Z95.2) 6. Secondary pulmonary arterial hypertension (HCC) (I27.21) 7. 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 - Regular rate and rhythm with a known 3/6 murmur on exam. - Followed by agricultural produce washer Dr. Monsalve. - Continue current medications: Lasix once daily, metoprolol. 8. Obstructive sleep apnea syndrome (G47.33) - Managed with BiPAP; patient reports benefit. - Upcoming sleep study and pulmonary function test scheduled. 9. Acquired hypothyroidism (E03.9) - TSH level at 2.1, within normal range. - Continue Synthroid. 10. Age-related osteoporosis without current pathological fracture (M81.0) - No current treatment as per advanced practice registered nurse's recommendation. 11. Statin intolerance (Z78.9) - Reviewed current management. 12. 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 - Followed by ENT Dr. Ring for ear care. 13. Macular degeneration of both eyes, unspecified type (H35.30) - Followed by Dr. Car at [facility]. - Using prescribed eye drops and supplements. 14. Hyperglycemia (R73.9) - Recent CMP showed elevated glucose levels. - Ordered Hemoglobin A1c to assess average blood glucose levels. - Advised to monitor dietary intake of starches and sugars. 15. Diarrhea, unspecified type (R19.7) - Managed with cholestyramine as needed. 16. Encounter for screening examination for other mental health and behavioral disorders (Z13.39) 17. Screening for depression (Z13.31) - Completed depression and anxiety screening; no significant findings. 18. Mild cognitive impairment (G31.84) - Recent cognitive assessment showed moderate stress and mild sleep problems; score of 79.2 indicating some cognitive deficits. - Discussed potential workup including B12 and folate levels; patient prefers to wait. - Monitoring cognitive function; will reassess if symptoms worsen. Ethan Donald MD Recording using [employer] software for draft documentation of the visit was discussed with the patient/authorized field representatives director; all questions welcomed and answered. Patient/authorized field representatives director agreed to proceed Brief Assessment of Cognitive Health (BACH) Results: The patient endorsed minimal depression symptoms on PHQ-8[1]. The patient endorsed a moderate level of stress. The patient reported getting about 7 hours of sleep per night, which falls into the recommended category based on National Sleep Foundation Guidelines [2].They endorsed mild recent sleep problems. The patient s cognitive test performance was VALID. When invalid, probability of cognitive impairment score should be disregarded. Probability of cognitive impairment [3]: 79.2% Above 50% - Probable cognitive impairment; Specialty evaluation may be warranted 20-50% - Possible cognitive impairment; Address moderate to severe depression and sleep issues and retest Below 20% - Very low chance of cognitive impairment Moderate to severe levels of depression or stress may contribute to subjective cognitive complaints in the absence of cognitive impairment [1] Jennifer John, Althea MORALES, Clemente SHORT, Franko STROUD, Rubens DAVENPORT. The PHQ-8 as a measure of current depression in the general population. J Affect Disord. 2009;114(1-3):163-173. doi: 10.1016/j.marc.2008.06.026 [2] Wes et al. National Sleep Foundation's sleep time duration recommendations: methodology and results summary. Sleep Health. 2015 Mar;1(1):40-43. doi: 10.1016/j.sleh.2014.12.010. [3] Grabiel RM, Norma O, Alisia AF, Shelly DP. Automated detection of cognitive impairment in clinical practice. J Neurol. 2023Oct 22. doi: 10.1007/k29818-379-78894-1. Epub ahead of print. PMID: 91881421. documented in this encounter [facility] 11-28-2024 Note HNO ID: [id number] Author: JOHN REYES LPN Service: ? Author Type: LICENSED NURSE Type: Progress Notes Filed: 11/28/2024 16:22 Note Text: Brief Assessment of Cognitive Health (BACH) Results: The patient endorsed minimal depression symptoms on PHQ-8[1]. The patient endorsed a moderate level of stress. The patient reported getting about 7 hours of sleep per night, which falls into the recommended category based on National Sleep Foundation Guidelines [2].They endorsed mild recent sleep problems. The patient?s cognitive test performance was VALID. When invalid, probability of cognitive impairment score should be disregarded. Probability of cognitive impairment [3]: 79.2% Above 50% - Probable cognitive impairment; Specialty evaluation may be warranted 20-50% - Possible cognitive impairment; Address moderate to severe depression and sleep issues and retest Below 20% - Very low chance of cognitive impairment Moderate to severe levels of depression or stress may contribute to subjective cognitive complaints in the absence of cognitive impairment [1] Jennifer John, Althea MORALES, Clemente SHORT, Franko TSROUD, Rubens . The PHQ-8 as a measure of current depression in the general population. J Affect Disord. 2009;114(1-3):163-173. doi: 10.1016/j.marc.2008.06.026 [2] Wes et al. National Sleep Foundation's sleep time duration recommendations: methodology and results summary. Sleep Health. 2015 Mar;1(1):40-43. doi: 10.1016/j.sleh.2014.12.010. [3] Grabiel RM, Norma O, Alisia AF, Shelly DP. Automated detection of cognitive impairment in clinical practice. J Neurol. 2023Oct 22. doi: 10.1007/b73717-941-16137-2. Epub ahead of print. PMID: [id number]. [facility] 05-27-2024 History of Present illness Narrative Patient presents with: 6 Month Exam HPI: Patient presents today for office visit for routine 6 month follow up. Having some balance issues. Has had multiple falls. Ambulates with cane when she's out. Bumped her head and elbow with worst fall. Typically just some bruising. Again, suggested physical therapy. She is reluctant but discussed risks and benefits. No new focal neuro issues. Some recent bouts with vertigo.not new Takes meclizine prn. Needs refill. Helps. THYROID: Continues Levothyroxine 75 mcg daily. No energy, hair or skin changes. No weight change. Denies temp intolerances. Thyroid testing is stable. Sees Cardiology. HTN: Continues on Metoprolol 25 mg daily. Not monitoring BP. Denies chest pain and shortness of breath. Denies headaches. No new or worsening dizziness. Denies palpitations and syncope. No edema. Continues Lasix 40 mg. MEDICATIONS: Current Outpatient Medications Medication Sig potassium chloride (KLOR-CON 10 ORAL) Take 10 mEq by mouth two times a day. meclizine (ANTIVERT) 25 mg tab Take 1 tablet by mouth every 6 hours as needed (dizziness). levothyroxine (SYNTHROID) 75 mcg tablet Take 1 tablet by mouth once daily. Cholestyramine-Aspartame (PREVALITE) 4 gram powder Take 4 g by mouth once daily. (Patient taking differently: Take 4 g by mouth as needed. PRN) furosemide (LASIX) 40 mg tablet Take 1 tablet by mouth twice daily. (Patient taking differently: Take 40 mg by mouth once daily.) metoprolol succinate ER (TOPROL XL) 25 mg 24 hr tablet Take 1 tablet by mouth once daily. ONE-A-DAY WOMENS FORMULA TAB Take one(1) tablet daily. No current facility-administered medications for this visit. 5ft2in ALLERGIES: ALLERGIES Allergen Reactions Aspirin Other: See Comments bleeding duodenal ulcer Niacin Other: See Comments hot flashing Simvastatin BODYACHES Vicodin [Hydrocodon* GI Upset PAST MEDICAL HISTORY Diagnosis Date Anemia due to GI blood loss 08/19/2010 duodenal ulcer Aortic valve stenosis, moderate 08/19/2010 aortic valve replacement 05/06/12 Benign hypertension 02/28/2016 BPPV (benign paroxysmal positional vertigo) Breast cancer (HCC) 05/03/2022 left Broken ankle 06/30/2019 Chronic diastolic heart failure (HCC) 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 History of aortic valve replacement with bioprosthetic valve Hyperparathyroidism, unspecified (HCC) parathyroidectomy 2006 Hypothyroidism 08/19/2010 Nocturnal hypoxia 05/12/2013 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, 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) Other and unspecified hyperlipidemia Personal history of colonic polyps Colon polyps Renal stone 08/19/2010 Statin intolerance 07/29/2014 Unspecified disorders of calcium metabolism Unspecified functional disorder of intestine Unspecified hearing loss RIGHT EAR ONLY PAST SURGICAL HISTORY Procedure Laterality Date ADENOIDECTOMY PRIMARY <AGE 14 Adenoidectomy ANKLE SURGERY HX 07/09/2019 BREAST LUMPECTOMY HX Left 05/03/2022 BX/EXC LYMPH NODE OPEN DEEP AXILLARY NODE Left 05/03/2022 CATARACT EXTRACTION HX 03/18/2014 CHOLECYSTECTOMY Cholecystectomy COLONOSCOPY FLX DX W/COLLJ SPEC WHEN PFRMD 10/08/94,11/11/04 Colonoscopy-repeat in -2009 COLONOSCOPY FLX DX W/COLLJ SPEC WHEN PFRMD 04/03/2016 Colonoscopy COLSC FLX W/RMVL OF TUMOR POLYP LESION SNARE TQ 11/2004 Polpectomy, lg intestine ESOPHAGOGASTRODUODENOSCOPY TRANSORAL DIAGNOSTIC [facility] PARATHYROID TUMOR 2006 3 parathyroid glands removed LAPAROSCOPY SURG CHOLECYSTECTOMY 11/01/1990 Cholecystectomy, lap LEFT HEART CATH,PERCUTANEOUS 09/01/2011 Cardiac cath, L heart RENAL NDSC NEPHROS/PYELOSTOMY RMVL FB/CALCULUS 06/2010 Dr Hudson RIGHT HEART CATHETERIZATION 09/01/2011 Cardiac cath, R heart RPLCMT PROST AORTIC VALVE OPEN XCP HOMOGRF/STENT 05/06/2012 Aortic valve replacement THYROID FINE NEEDLE ASPIRATION 11/14/2004 TONSILLECTOMY PRIMARY/SECONDARY <AGE 14 Tonsillectomy XCAPSL CTRC RMVL INSJ IO LENS PROSTH W/O ECP Cataract Extraction with PC IOL FAMILY HISTORY Problem Relation Age of Onset other (LIVER CIRRHOSIS) Mother Alzheimer's Disease Father other (Aortic valve replacement) Sister other (Aortic valce replacement) Brother COPD Brother Dementia Brother Hypertension Brother No Known Problems Brother No Known Problems Maternal Grandmother No Known Problems Maternal Grandfather No Known Problems Paternal Grandmother No Known Problems Paternal Grandfather Social History Tobacco Use Smoking status: Never Smokeless tobacco: Never Vaping Use Vaping status: Never Used Substance Use Topics Alcohol use: Yes Comment: occasionally Drug use: Never Reviewed current medications, allergies, past medical history, surgical history, family history and social history today. REVIEW OF SYSTEMS No gi or gu issues. All other reviewed and negative other than HPI. HEALTH MAINTENANCE: Reviewed health maintenance issues today and recommended the following in detail. RSV Vaccine(1 - 1-dose 75+ series) Never done Advance Directive Discussion due on 05/21/2024 VITALS: BP 106/64 Pulse 68 Ht 157.5 cm (5' 2) Wt 71.9 kg (158 lb 9.6 oz) SpO2 94% BMI 29.01 kg/m Last 4 Encounter Wt Readings: Date: Wt: 04/16/2024 70.3 kg (155 lb) 03/27/2024 70.8 kg (156 lb 1.4 oz) 03/19/2024 70 kg (154 lb 5.2 oz) 03/12/2024 71.3 kg (157 lb 3 oz) PHYSICAL EXAMINATION: General appearance: Well appearing, alert, in no acute distress, well-hydrated, well nourished. Skin: Skin color, texture, turgor normal, no suspicious rashes or lesions Head: Normocephalic, no masses, lesions, tenderness or abnormalities Eyes: Anicteric sclera. Pupils are equally round and reactive to light. Extraocular movements are intact. Lungs: Lungs clear to auscultation. No wheezing, rhonchi, rales Heart: RRR without murmur, gallop, or rubs. No ectopy Abdomen: Normal abdominal exam, Abdomen soft, non-tender. Bowel sounds normal. No masses, organomegaly Extremities: No deformities, edema, skin discoloration, clubbing or cyanosis. Good capillary refill. Musculoskeletal: No joint swelling, deformity, or tenderness ASSESSMENT/PLAN: 1. Benign hypertension - ICD9: 401.1, ICD10: I10 (primary diagnosis) - Controlled - Continue current medications 2. Hyperlipidemia LDL goal <100 - ICD9: 272.4, ICD10: E78.5 - declines checking. 3. Secondary pulmonary arterial hypertension (HCC) - ICD9: 416.8, ICD10: I27.21 - stable. 4. Stenosis of prosthetic aortic valve, subsequent encounter - ICD9: V58.89, 996.71, ICD10: T82.857D - per cardiology. 5. Obstructive sleep apnea syndrome - ICD9: 327.23, ICD10: G47.33 - stable. 6. Acquired hypothyroidism - ICD9: 244.9, ICD10: E03.9 - follow labs. 7. Malignant neoplasm of left female breast, unspecified estrogen receptor status, unspecified site of breast (HCC) - ICD9: 174.9, ICD10: C50.912 - had mammogram in mar 28. Vertigo - ICD9: 780.4, ICD10: R42 - refilled antivert. 9. Statin intolerance - ICD9: 995.27, ICD10: Z78.9 - declines treatment or therapy. 10. Ataxia - ICD9: 781.3, ICD10: R27.0 - consider neuro eval if worsens. - CONSULT TO PHYSICAL THERAPY 11. History of poliomyelitis - ICD9: V12.02, ICD10: Z86.12 - as above Ethan Donald MD documented in this encounter [facility] 05-27-2024 Note HNO ID: [id number] Author: ETHAN DONALD MD Service: ? Author Type: Physician Type: Progress Notes Filed: 05/27/2024 14:19 Note Text: Patient presents with: 6 Month Exam HPI: Patient presents today for office visit for routine 6 month follow up. Having some balance issues. Has had multiple falls. Ambulates with cane when she's out. Bumped her head and elbow with worst fall. Typically just some bruising. Again, suggested physical therapy. She is reluctant but discussed risks and benefits. No new focal neuro issues. Some recent bouts with vertigo.not new Takes meclizine prn. Needs refill. Helps. THYROID: Continues Levothyroxine 75 mcg daily. No energy, hair or skin changes. No weight change. Denies temp intolerances. Thyroid testing is stable. Sees Cardiology. HTN: Continues on Metoprolol 25 mg daily. Not monitoring BP. Denies chest pain and shortness of breath. Denies headaches. No new or worsening dizziness. Denies palpitations and syncope. No edema. Continues Lasix 40 mg. MEDICATIONS: Current Outpatient Medications Medication Sig potassium chloride (KLOR-CON 10 ORAL) Take 10 mEq by mouth two times a day. meclizine (ANTIVERT) 25 mg tab Take 1 tablet by mouth every 6 hours as needed (dizziness). levothyroxine (SYNTHROID) 75 mcg tablet Take 1 tablet by mouth once daily. Cholestyramine-Aspartame (PREVALITE) 4 gram powder Take 4 g by mouth once daily. (Patient taking differently: Take 4 g by mouth as needed. PRN) furosemide (LASIX) 40 mg tablet Take 1 tablet by mouth twice daily. (Patient taking differently: Take 40 mg by mouth once daily.) metoprolol succinate ER (TOPROL XL) 25 mg 24 hr tablet Take 1 tablet by mouth once daily. ONE-A-DAY WOMENS FORMULA TAB Take one(1) tablet daily. No current facility-administered medications for this visit. 5ft2in ALLERGIES: ALLERGIES Allergen Reactions Aspirin Other: See Comments bleeding duodenal ulcer Niacin Other: See Comments hot flashing Simvastatin BODYACHES Vicodin [Hydrocodon* GI Upset PAST MEDICAL HISTORY Diagnosis Date Anemia due to GI blood loss 08/19/2010 duodenal ulcer Aortic valve stenosis, moderate 08/19/2010 aortic valve replacement 05/06/12 Benign hypertension 02/28/2016 BPPV (benign paroxysmal positional vertigo) Breast cancer (HCC) 05/03/2022 left Broken ankle 06/30/2019 Chronic diastolic heart failure (HCC) 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 History of aortic valve replacement with bioprosthetic valve Hyperparathyroidism, unspecified (HCC) parathyroidectomy 2007 Hypothyroidism 08/19/2010 Nocturnal hypoxia 05/12/2013 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, 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) Other and unspecified hyperlipidemia Personal history of colonic polyps Colon polyps Renal stone 08/19/2010 Statin intolerance 07/29/2014 Unspecified disorders of calcium metabolism Unspecified functional disorder of intestine Unspecified hearing loss RIGHT EAR ONLY PAST SURGICAL HISTORY Procedure Laterality Date ADENOIDECTOMY PRIMARY Adenoidectomy ANKLE SURGERY HX 07/09/2019 BREAST LUMPECTOMY HX Left 05/03/2022 BX/EXC LYMPH NODE OPEN DEEP AXILLARY NODE Left 05/03/2022 CATARACT EXTRACTION HX 03/18/2014 CHOLECYSTECTOMY Cholecystectomy COLONOSCOPY FLX DX W/COLLJ SPEC WHEN PFRMD 10/08/94,11/11/04 Colonoscopy-repeat in COLONOSCOPY FLX DX W/COLLJ SPEC WHEN PFRMD 04/03/2016 Colonoscopy COLSC FLX W/RMVL OF TUMOR POLYP LESION SNARE TQ 11/2004 Polpectomy, lg intestine ESOPHAGOGASTRODUODENOSCOPY TRANSORAL DIAGNOSTIC [facility] EXCISION PARATHYROID TUMOR 2006 3 parathyroid glands removed LAPAROSCOPY SURG CHOLECYSTECTOMY 11/01/1990 Cholecystectomy, lap LEFT HEART CATH,PERCUTANEOUS 09/01/2011 Cardiac cath, L heart RENAL NDSC NEPHROS/PYELOSTOMY RMVL FB/CALCULUS 06/2010 Dr Hudson RIGHT HEART CATHETERIZATION 09/01/2011 Cardiac cath, R heart RPLCMT PROST AORTIC VALVE OPEN XCP HOMOGRF/STENT 05/06/2012 Aortic valve replacement THYROID FINE NEEDLE ASPIRATION 11/14/2004 TONSILLECTOMY PRIMARY/SECONDARY Tonsillectomy XCAPSL CTRC RMVL INSJ IO LENS PROSTH W/O ECP Cataract Extraction with PC IOL FAMILY HISTORY Problem Relation Age of Onset other (LIVER CIRRHOSIS) Mother Alzheimer's Disease Father other (Aortic valve replacement) Sister other (Aortic valce replacement) Brother COPD Brother Dementia Brother Hypertension Brother No Known Problems Brother No Known Problems Maternal Grandmother No Known Problems Maternal Grandfather No Known Problems Paternal Grandmother No Known Problems Paternal Grandfather Social History Tobacco Use Smoking status: Never Smokeless tobacco: Never Vaping Use Vaping status: Never Used Substance Use Topics Alcohol use: Yes Comment: occasionally Drug use: Never Reviewed current medications, allergies, past medical history, surgic (more content not included)... [facility] 04-16-2024 History of Present illness Narrative FOLLOW UP VISIT - POST OP BREAST CANCER NAME: Sydney Daigle [facility] NO.: [id number] DATE OF SERVICE: April 10, 2023 : 1935 REFERRING PHYSICIAN: Ethan Donald MD Sydney is a patient I am following for left sided breast cancer. The patient is a 86 year old female with a complaint of a palpable breast mass. The patient notes a mass in the central portion of her left breast. The patient has noticed this mass for some time. The patient had a mammogram and ultrasound on March 15, 2022 which demonstrated: There is a 6 cm irregular mass in the left breast at 12 o'clock anterior depth. This correlates as palpated. There is nipple retraction associated with the mass. No other significant masses, calcifications, or other findings are seen in either breast. IMPRESSION: HIGHLY SUGGESTIVE OF MALIGNANCY - APPROPRIATE ACTION SHOULD BE TAKEN The 6 cm irregular mass in the left breast resembles carcinoma and is highly suggestive of malignancy. An ultrasound guided biopsy is recommended. LIMITED ULTRASOUND OF RIGHT BREAST AND LIMITED ULTRASOUND OF LEFT BREAST AND AXILLA: 03/15/2022 RESULT: Comparison is made to exams dated: 08/24/2014 mammogram and 08/18/2011 mammogram - [facility]. Color flow and real-time ultrasound of the right breast and color flow and real-time ultrasound of the left breast 12 o'clock, retroareolar, and axilla regions were performed. Aj scale images of the real-time examination were reviewed. There is 4.7 cm x 4.2 cm x 4.4 cm irregular mass in the left breast at 12 o'clock anterior depth 2 cm from the nipple. This irregular mass is hypoechoic. This correlates as palpated and with mammography findings. There also is a lymph node with focal cortical thickening in the left axillary tail. IMPRESSION: HIGHLY SUGGESTIVE OF MALIGNANCY - APPROPRIATE ACTION SHOULD BE TAKEN The 4.7 cm x 4.2 cm x 4.4 cm irregular mass in the left breast at 12 o'clock anterior depth resembles carcinoma and is highly suggestive of malignancy. An ultrasound guided biopsy or a surgical consult are recommended. The lymph node with focal cortical thickening in the left axillary tail is suspicious of malignancy. An ultrasound guided biopsy is recommended. She does not perform a self breast exam routinely. She notes thickening of the nipple. She notes nipple discharge. She notes no axillary masses. She notes no family history of breast problems. She notes no significant breast trauma or breast difficulties in the past. Her prior mammogram was in 2014 and was unremarkable The patient is being seen by me at the request of Dr. Ethan Donald MD for my opinion and advice regarding a left breast.. I performed left ultrasound-guided core breast biopsy and biopsy of suspicious axillary lymph node on March 22, 2022. Pathology returned as: NAL DIAGNOSIS A. Lymph node, left axillary, #1, ultrasound-guided core biopsy: ---Fragments of benign lymph node. B. 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 Breast Biomarkers RESULTS: Estrogen Receptor (ER) Positive 90 % Stain intensity: strong Internal controls: absent External controls: appropriately stained Progesterone Receptor (CA) Positive 1 % Stain intensity: moderate Internal controls: absent External controls: appropriately stained HER2 (ERBB2) IMMUNOHISTOCHEMISTRY ASSAY Interpretation: NEGATIVE for HER2 (ERBB2) Expression Score: 1+ The patient has multiple comorbidities including congestive heart failure replaced aortic valve and somewhat limited performance status. I spoke with Dr. Bowen who felt that the patient will be a poor candidate for neoadjuvant treatment and given the fact that the lymph node was negative we would elect to proceed with definitive surgical intervention including sentinel lymph node biopsy. Given the size of the tumor we felt obtaining a PET CT scan to assess for metastatic disease even in the face of a negative axillary lymph node core biopsy was reasonable. The patient returned today for results of biopsy. She had anticipated this would be breast cancer. We extensively discussed her diagnosis and at the last visit discussed her surgical options including breast conservation surgical procedures, mastectomy without reconstruction and mastectomy with reconstruction. The patient has elected to undergo a left side possible needle localization biopsy/lumpectomy with sentinel lymph node biopsy with possible axillary dissection. The patient is being seen by me today at the request of Dr. Ethan Donald MD for my opinion and advice regarding locally advanced left breast cancer. I performed a left large lumpectomy/partial mastectomy with sentinel lymph node injection and biopsy on May 03, 2022. The pathology demonstrated: FINAL DIAGNOSIS A. Left breast, lumpectomy: - Invasive ductal carcinoma, see comment and synoptic report. - Seborrheic keratosis. - Two clips identified. B. Left sentinel lymph node, #1, excision: - 2 lymph nodes, negative for metastatic carcinoma (0/2). - Biopsy site identified. C. Left sentinel lymph node, cold node, out at 1336, excision: - 1 lymph node, negative for metastatic carcinoma (0/1). D. Left sentinel lymph node #2, excision: - 1 lymph node, negative for metastatic carcinoma (0/1). MARGINS Margin Status for Invasive Carcinoma All margins negative for invasive carcinoma Distance from Invasive Carcinoma to Closest Margin 10 mm Closest Margin(s) to Invasive Carcinoma Posterior REGIONAL LYMPH NODES Regional Lymph Node Status All regional lymph nodes negative for tumor Total Number of Lymph Nodes Examined (sentinel and non-sentinel) 4 Number of [place] Nodes Examined 4 PATHOLOGIC STAGE CLASSIFICATION (pTNM, AJCC 8th Edition) Reporting of pT, pN, and (when applicable) pM categories is based on information available to the pathologist at the time the report is issued. As per the AJCC (Chapter 1, 8th Ed.) it is the managing physician s responsibility to establish the final pathologic stage based upon all pertinent information, including but potentially not limited to this pathology report. pT Category pT3 Regional Lymph Nodes Modifier (sn): [place] node(s) evaluated. pN Category pN0 Breast Biomarker Testing Performed on Previous Biopsy Estrogen Receptor (ER) Status Positive (greater than 10% of cells demonstrate nuclear positivity) Percentage of Cells with Nuclear Positivity 90 % Breast Biomarker Testing Performed on Previous Biopsy [place]erson notes minimal pain. Post operative pain has been well controlled. The patient denies nausea. The patient`s appetite has been good. No drains were placed. Recommended the patient be referred to oncology for consideration of estrogen suppression given her ER status but agreed that radiation therapy or chemotherapy would not be indicated given her medical comorbidities age and her personal opinion. The patient initially declined referral to oncology and stated she would likely not take estrogen suppression therapy. She returns today for follow-up. She had good range of motion and no complaints at her incision sites. She underwent follow-up mammography on April 04, 2023 which demonstrated: IMPRESSION: BENIGN FINDING There is no mammographic evidence of malignancy. Return to annual mammogram screening schedule is recommended. TECHNIQUE: The study was acquired using full field digital technology and interpreted from soft copy. Digital Breast Tomosynthesis (DBT) images were obtained and used to assist in the interpretation of this examination. Current study was also evaluated with a Computer Aided Detection (CAD). Comparison is made to exams dated: 03/30/2022 mammogram and 03/15/2022 mammogram - [facility]. There are scattered areas of fibroglandular density. The left breast has post-operative findings. There is a benign coarse calcification in the right breast. No significant masses, calcifications, or other findings are seen in either breast. The patient follow-up mammogram April 11, 2034. This demonstrated: IMPRESSION: There is no mammographic evidence of malignancy. Routine screening mammogram is recommended. Annual mammogram will be due in 1 year. BI-RADS Category 2: Benign VITALS: There were no vitals taken for this visit. The sensitive examination was discussed with the Patient or Patient's Authorized Polisher Sand. As applicable, any other physician, advance practice provider, medical student, or other health professional student that will be observing or involved in the sensitive examination for educational or training purposes was discussed with the Patient or Authorized Polisher Sand. The Patient or Authorized Polisher Sand has agreed to proceed with the sensitive examination. (Sensitive examination includes inspection and/or palpation of the breasts, pelvis, prostate and anorectal regions) On examination, the left skin incision is clean, dry, and intact. The patient went a very large lumpectomy near half the superficial breast was removed due to the size of the tumor. There were no palpable abnormalities in the left breast. The axillary portion of the incision is clean, dry and intact. The incisions are well-healed. The right breast has no palpable abnormalities retraction or nipple discharge. Assessment IMPRESSION: Status Post left partial mastectomy with sentinel lymph node biopsy for left invasive breast cancer. PLAN: Sydney is doing quite well. I would asked that she return for follow-up clinical exam with bilateral mammogram in 1 year. If the patient notes any abnormalities or concerning sites then she should contact me immediately. Diagnoses: (C50.912, Z17.0) Malignant neoplasm of left breast in female, estrogen receptor positive, unspecified site of breast (HCC) (primary encounter diagnosis) Return to Clinic: The patient is instructed to follow-up with me in 12 months with mammogram prior to that visit. Chino Ambrose MD documented in this encounter [facility] 04-16-2024 Note HNO ID: [id number] Author: CHINO AMBROSE MD Service: ? Author Type: Physician Type: Progress Notes Filed: 04/17/2024 08:04 Note Text: FOLLOW UP VISIT - POST OP BREAST CANCER NAME: Sydney Forrest Pilo [facility] NO.: [id number] DATE OF SERVICE: April 10, 2023 : 1935 REFERRING PHYSICIAN: Ethan Donald MD Sydney is a patient I am following for left sided breast cancer. The patient is a 86 year old female with a complaint of a palpable breast mass. The patient notes a mass in the central portion of her left breast. The patient has noticed this mass for some time. The patient had a mammogram and ultrasound on March 15, 2022 which demonstrated: There is a 6 cm irregular mass in the left breast at 12 o'clock anterior depth. This correlates as palpated. There is nipple retraction associated with the mass. No other significant masses, calcifications, or other findings are seen in either breast. IMPRESSION: HIGHLY SUGGESTIVE OF MALIGNANCY - APPROPRIATE ACTION SHOULD BE TAKEN The 6 cm irregular mass in the left breast resembles carcinoma and is highly suggestive of malignancy. An ultrasound guided biopsy is recommended. LIMITED ULTRASOUND OF RIGHT BREAST AND LIMITED ULTRASOUND OF LEFT BREAST AND AXILLA: 03/15/2022 RESULT: Comparison is made to exams dated: 08/24/2014 mammogram and 08/18/2011 mammogram - [facility]. Color flow and real-time ultrasound of the right breast and color flow and real-time ultrasound of the left breast 12 o'clock, retroareolar, and axilla regions were performed. Aj scale images of the real-time examination were reviewed. There is 4.7 cm x 4.2 cm x 4.4 cm irregular mass in the left breast at 12 o'clock anterior depth 2 cm from the nipple. This irregular mass is hypoechoic. This correlates as palpated and with mammography findings. There also is a lymph node with focal cortical thickening in the left axillary tail. IMPRESSION: HIGHLY SUGGESTIVE OF MALIGNANCY - APPROPRIATE ACTION SHOULD BE TAKEN The 4.7 cm x 4.2 cm x 4.4 cm irregular mass in the left breast at 12 o'clock anterior depth resembles carcinoma and is highly suggestive of malignancy. An ultrasound guided biopsy or a surgical consult are recommended. The lymph node with focal cortical thickening in the left axillary tail is suspicious of malignancy. An ultrasound guided biopsy is recommended. She does not perform a self breast exam routinely. She notes thickening of the nipple. She notes nipple discharge. She notes no axillary masses. She notes no family history of breast problems. She notes no significant breast trauma or breast difficulties in the past. Her prior mammogram was in 2014 and was unremarkable The patient is being seen by me at the request of Dr. Ehtan Donlad MD for my opinion and advice regarding a left breast.. I performed left ultrasound-guided core breast biopsy and biopsy of suspicious axillary lymph node on March 22, 2022. Pathology returned as: NAL DIAGNOSIS A. Lymph node, left axillary, #1, ultrasound-guided core biopsy: ---Fragments of benign lymph node. B. 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 Breast Biomarkers RESULTS: Estrogen Receptor (ER) Positive 90 % Stain intensity: strong Internal controls: absent External controls: appropriately stained Progesterone Receptor (CA) Positive 1 % Stain intensity: moderate Internal controls: absent External controls: appropriately stained HER2 (ERBB2) IMMUNOHISTOCHEMISTRY ASSAY Interpretation: NEGATIVE for HER2 (ERBB2) Expression Score: 1+ The patient has multiple comorbidities including congestive heart failure replaced aortic valve and somewhat limited performance status. I spoke with Dr. Bowen who felt that the patient will be a poor candidate for neoadjuvant treatment and given the fact that the lymph node was negative we would elect to proceed with definitive surgical intervention including sentinel lymph node biopsy. Given the size of the tumor we felt obtaining a PET CT scan to assess for metastatic disease even in the face of a negative axillary lymph node core biopsy was reasonable. The patient returned today for results of biopsy. She had anticipated this would be breast cancer. We extensively discussed her diagnosis and at the last visit discussed her surgical options including breast conservation surgical procedures, mastectomy without reconstruction and mastectomy with reconstruction. The patient has elected to undergo a left side possible needle localization biopsy/lumpectomy with sentinel lymph node biopsy with possible axillary dissection. The patient is being seen by me today at the request of Dr. Ethan Donald MD for my opinion and advice regarding locally advanced left breast cancer. I perfor (more content not included)... [facility] 04-10-2024 History of Present illness Narrative Radiology Service Progress Note PATIENT NAME: Sydney Daigle DATE OF SERVICE: April 10, 2024 TIME: 11:52 AM PATIENT IDENTITY VERIFICATION COMPLETED USING TWO (2) IDENTIFIERS: Name and Date of confirmed by patient verbally. FALL SCREENING: Has the patient had 2 falls in the last year or 1 fall with injury or currently using an Ambulatory Assistive Device (Walker, Cane, Wheelchair, Crutches, etc.)? No PATIENT GENDER DATA: Female. status: : No status: NO. PATIENT RELEVANT IMPLANT DATA REVIEWED: Not Applicable PATIENT PRESENTS WITH AN IMPLANTABLE OR ATTACHED PAPER INSPECTOR: No RADIOLOGY DEPARTMENT: Mammography PERIPHERAL IV DATA: Not applicable SIGNED BY: Rosalba Anthony April 10, 2024 11:52 AM documented in this encounter [facility] 04-10-2024 Note HNO ID: [id number] Author: MERCEDEZ BERNARD Mammo Tech Service: ? Author Type: Route Delivery Service Driver Type: Progress Notes Filed: 04/10/2024 11:52 Note Text: Radiology Service Progress Note PATIENT NAME: Sydney Daigle DATE OF SERVICE: April 10, 2024 TIME: 11:52 AM PATIENT IDENTITY VERIFICATION COMPLETED USING TWO (2) IDENTIFIERS: Name and Date of confirmed by patient verbally. FALL SCREENING: Has the patient had 2 falls in the last year or 1 fall with injury or currently using an Ambulatory Assistive Device (Walker, Cane, Wheelchair, Crutches, etc.)? No PATIENT GENDER DATA: Female. status: : No status: NO. PATIENT RELEVANT IMPLANT DATA REVIEWED: Not Applicable PATIENT PRESENTS WITH AN IMPLANTABLE OR ATTACHED PAPER INSPECTOR: No RADIOLOGY DEPARTMENT: Mammography PERIPHERAL IV DATA: Not applicable SIGNED BY: Rosalba Anthony April 10, 2024 11:52 AM [facility] 03-28-2024 Note HNO ID: [id number] Author: YELENA MERA, VIKY.PILOT PLANT TECHNICIAN Service: ? Author Type: Nurse Practitioner Type: Progress Notes Filed: 03/28/2024 07:23 Note Text: CC: Patient presents with: 1 week wound check HPI Sydney Daigle is a 88 year old female who presents today for above. See previous office notes in Epic. Patient and her sister, who has been assisting with dressing changes, report wound seems to be healing. There is a scant, clear yellow drainage and slightly red around the wound. Patient denies pain, tenderness, fever, chills. 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, 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) Other and unspecified hyperlipidemia Personal history of colonic polyps Colon polyps Renal stone 08/19/2010 Statin intolerance 07/29/2014 Unspecified disorders of calcium metabolism Unspecified functional disorder of intestine Unspecified hearing loss RIGHT EAR ONLY PAST SURGICAL HISTORY Procedure Laterality Date ADENOIDECTOMY PRIMARY Adenoidectomy ANKLE SURGERY HX 07/09/2019 BREAST LUMPECTOMY HX Left 05/03/2022 BX/EXC LYMPH NODE OPEN DEEP AXILLARY NODE Left 05/03/2022 CATARACT EXTRACTION HX 03/18/2014 CHOLECYSTECTOMY Cholecystectomy COLONOSCOPY FLX DX W/COLLJ SPEC WHEN PFRMD 10/08/94,11/11/04 Colonoscopy-repeat in -2009 COLONOSCOPY FLX DX W/COLLJ SPEC WHEN PFRMD 04/03/2016 Colonoscopy COLSC FLX W/RMVL OF TUMOR POLYP LESION SNARE TQ 11/2004 Polpectomy, lg intestine ESOPHAGOGASTRODUODENOSCOPY TRANSORAL DIAGNOSTIC [facility] EXCISION PARATHYROID TUMOR 2007 3 parathyroid glands removed LAPAROSCOPY SURG CHOLECYSTECTOMY 11/01/1990 Cholecystectomy, lap LEFT HEART CATH,PERCUTANEOUS 09/01/2011 Cardiac cath, L heart RENAL NDSC NEPHROS/PYELOSTOMY RMVL FB/CALCULUS 06/2010 Dr Hudson RIGHT HEART CATHETERIZATION 09/01/2011 Cardiac cath, R heart RPLCMT PROST AORTIC VALVE OPEN XCP HOMOGRF/STENT 05/06/2012 Aortic valve replacement THYROID FINE NEEDLE ASPIRATION 11/14/2004 TONSILLECTOMY PRIMARY/SECONDARY Tonsillectomy XCAPSL CTRC RMVL INSJ IO LENS PROSTH W/O ECP Cataract Extraction with PC IOL ALLERGIES Aspirin, Niacin, Simvastatin, and Vicodin [Hydrocodone-Acetaminophen] MEDICATIONS KLOR-CON M10 10 mEq tablet Take 10 mEq by mouth two times a day. meclizine (ANTIVERT) 25 mg tab Take 1 tablet by mouth every 6 hours as needed (dizziness). levothyroxine (SYNTHROID) 75 mcg tablet Take 1 tablet by mouth once daily. Cholestyramine-Aspartame (PREVALITE) 4 gram powder Take 4 g by mouth once daily. (Patient taking differently: Take 4 g by mouth as needed. PRN) furosemide (LASIX) 40 mg tablet Take 1 tablet by mouth twice daily. (Patient taking differently: Take 40 mg by mouth once daily.) metoprolol succinate ER (TOPROL XL) 25 mg 24 hr tablet Take 1 tablet by mouth once daily. ONE-A-DAY WOMENS FORMULA TAB Take one(1) tablet daily. FAMILY HISTORY Problem Relation Age of Onset other (LIVER CIRRHOSIS) Mother Alzheimer's Disease Father Social History Tobacco Use Smoking status: Never Smokeless tobacco: Never Vaping Use Vaping status: Never Used Substance Use Topics Alcohol use: Yes Comment: SLIGHT Drug use: No BP 128/68 Pulse (!) 57 Temp 37.1 ?C (98.7 ?F) (Temporal) Resp 14 Wt 70.8 kg (156 lb 1.4 oz) SpO2 93% BMI 28.55 kg/m? Physical Exam Vitals reviewed. Constitutional: Appearance: Normal appearance. Skin: Neurological: Mental Status: She is alert. ASSESSMENT/PLAN: 1. Partial thickness burn of upper back, initial encounter - ICD9: 942.24, ICD10: T21.23XA Slow healing wound. No signs of infection including abscess or cellulitis. Discussed referral to wound center for further evaluation but sister and patient declined. Reviewed wound care instructions with them. No further follow-ups indicated at this time but they were instructed to notify me for any signs of infection or delay in wound healing. Prescription instructions reviewed with patient as applicable. Potential red flag symptoms discussed with the patient. Reviewed appropriate action plan to take if red flag symptoms occur. Patient agreeable to treatment plan. Yelena Mera APRN.[facility] 03-28-2024 History of Present illness Narrative Images from the original note were not included. CC: Patient presents with: 1 week wound check HPI ySdney Daigle is a 88 year old female who presents today for above. See previous office notes in Epic. Patient and her sister, who has been assisting with dressing changes, report wound seems to be healing. There is a scant, clear yellow drainage and slightly red around the wound. Patient denies pain, tenderness, fever, chills. 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, 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) Other and unspecified hyperlipidemia Personal history of colonic polyps Colon polyps Renal stone 08/19/2010 Statin intolerance 07/29/2014 Unspecified disorders of calcium metabolism Unspecified functional disorder of intestine Unspecified hearing loss RIGHT EAR ONLY PAST SURGICAL HISTORY Procedure Laterality Date ADENOIDECTOMY PRIMARY <AGE 14 Adenoidectomy ANKLE SURGERY HX 07/09/2019 BREAST LUMPECTOMY HX Left 05/03/2022 BX/EXC LYMPH NODE OPEN DEEP AXILLARY NODE Left 05/03/2022 CATARACT EXTRACTION HX 03/18/2014 CHOLECYSTECTOMY Cholecystectomy COLONOSCOPY FLX DX W/COLLJ SPEC WHEN PFRMD 10/08/94,11/11/04 Colonoscopy-repeat in COLONOSCOPY FLX DX W/COLLJ SPEC WHEN PFRMD 04/03/2016 Colonoscopy COLSC FLX W/RMVL OF TUMOR POLYP LESION SNARE TQ 11/2004 Polpectomy, lg intestine ESOPHAGOGASTRODUODENOSCOPY TRANSORAL DIAGNOSTIC 07/12/2010 EGD inpt [facility] H-pylori is negative EXCISION PARATHYROID TUMOR 2006 3 parathyroid glands removed LAPAROSCOPY SURG CHOLECYSTECTOMY 11/01/1990 Cholecystectomy, lap LEFT HEART CATH,PERCUTANEOUS 09/01/2011 Cardiac cath, L heart RENAL NDSC NEPHROS/PYELOSTOMY RMVL FB/CALCULUS 06/2010 Dr Hudson RIGHT HEART CATHETERIZATION 09/01/2011 Cardiac cath, R heart RPLCMT PROST AORTIC VALVE OPEN XCP HOMOGRF/STENT 05/06/2012 Aortic valve replacement THYROID FINE NEEDLE ASPIRATION 11/14/2004 TONSILLECTOMY PRIMARY/SECONDARY <AGE 14 Tonsillectomy XCAPSL CTRC RMVL INSJ IO LENS PROSTH W/O ECP Cataract Extraction with PC IOL ALLERGIES Aspirin, Niacin, Simvastatin, and Vicodin [Hydrocodone-Acetaminophen] MEDICATIONS KLOR-CON M10 10 mEq tablet Take 10 mEq by mouth two times a day. meclizine (ANTIVERT) 25 mg tab Take 1 tablet by mouth every 6 hours as needed (dizziness). levothyroxine (SYNTHROID) 75 mcg tablet Take 1 tablet by mouth once daily. Cholestyramine-Aspartame (PREVALITE) 4 gram powder Take 4 g by mouth once daily. (Patient taking differently: Take 4 g by mouth as needed. PRN) furosemide (LASIX) 40 mg tablet Take 1 tablet by mouth twice daily. (Patient taking differently: Take 40 mg by mouth once daily.) metoprolol succinate ER (TOPROL XL) 25 mg 24 hr tablet Take 1 tablet by mouth once daily. ONE-A-DAY WOMENS FORMULA TAB Take one(1) tablet daily. FAMILY HISTORY Problem Relation Age of Onset other (LIVER CIRRHOSIS) Mother Alzheimer's Disease Father Social History Tobacco Use Smoking status: Never Smokeless tobacco: Never Vaping Use Vaping status: Never Used Substance Use Topics Alcohol use: Yes Comment: SLIGHT Drug use: No BP 128/68 Pulse (!) 57 Temp 37.1 C (98.7 F) (Temporal) Resp 14 Wt 70.8 kg (156 lb 1.4 oz) SpO2 93% BMI 28.55 kg/m Physical Exam Vitals reviewed. Constitutional: Appearance: Normal appearance. Skin: Neurological: Mental Status: She is alert. ASSESSMENT/PLAN: 1. Partial thickness burn of upper back, initial encounter - ICD9: 942.24, ICD10: T21.23XA Slow healing wound. No signs of infection including abscess or cellulitis. Discussed referral to wound center for further evaluation but sister and patient declined. Reviewed wound care instructions with them. No further follow-ups indicated at this time but they were instructed to notify me for any signs of infection or delay in wound healing. Prescription instructions reviewed with patient as applicable. Potential red flag symptoms discussed with the patient. Reviewed appropriate action plan to take if red flag symptoms occur. Patient agreeable to treatment plan. Yelena Mera APRN.DANIEL documented in this encounter [facility] 03-19-2024 Instructions Yelena Mera APRN.CNP - 03/19/2024 4:53 PM EDT Keep area(s) clean and dry. Wash with soap and water twice a day followed by SMALL AMOUNT Bacitracin ointment and a clean dry gauze (not telfa) dressing until oozing or bleeding stops. Once wound is dry, you may leave it open to the air. (Cover if you have an open wound and are going out of the home to prevent infection) Recheck wound as scheduled with office. If any unusual pain, swelling, red streaks, pus, fever or other signs of worsening infection, call immediately. documented in this encounter [facility] 03-19-2024 Note HNO ID: [id number] Author: YELENA MERA APRN.CNP Service: ? Author Type: Nurse Practitioner Type: Progress Notes Filed: 03/19/2024 17:09 Note Text: CC: Patient presents with: Recheck: 1 week wound check HPI Sydney Daigle is a 88 year old female who presents today for above. Patient was seen one week ago for burn wound to mid back from heating pad and possible cellulitis. Wound care advise was given and she was treated with Doxycycline. Today patient is here with her sister again who has been assisting with wound care. She feels there has been definite improvement in wound appearance and has become a lot smaller. She did have skin irritation from paper tape but improving once she stopped using it. Patient denies pain, just feels itchy. Denies purulent drainage, fever, chills, malaise. No side effects to the antibiotics. 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, 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) Other and unspecified hyperlipidemia Personal history of colonic polyps Colon polyps Renal stone 08/19/2010 Statin intolerance 07/29/2014 Unspecified disorders of calcium metabolism Unspecified functional disorder of intestine Unspecified hearing loss RIGHT EAR ONLY PAST SURGICAL HISTORY Procedure Laterality Date ADENOIDECTOMY PRIMARY Adenoidectomy ANKLE SURGERY HX 07/09/2019 BREAST LUMPECTOMY HX Left 05/03/2022 BX/EXC LYMPH NODE OPEN DEEP AXILLARY NODE Left 05/03/2022 CATARACT EXTRACTION HX 03/18/2014 CHOLECYSTECTOMY Cholecystectomy COLONOSCOPY FLX DX W/COLLJ SPEC WHEN PFRMD 10/08/94,11/11/04 Colonoscopy-repeat in COLONOSCOPY FLX DX W/COLLJ SPEC WHEN PFRMD 04/03/2016 Colonoscopy COLSC FLX W/RMVL OF TUMOR POLYP LESION SNARE TQ 11/2004 Polpectomy, lg intestine ESOPHAGOGASTRODUODENOSCOPY TRANSORAL DIAGNOSTIC 07/12[facility] EXCISION PARATHYROID TUMOR 2006 3 parathyroid glands removed LAPAROSCOPY SURG CHOLECYSTECTOMY 11/01/1990 Cholecystectomy, lap LEFT HEART CATH,PERCUTANEOUS 09/01/2011 Cardiac cath, L heart RENAL NDSC NEPHROS/PYELOSTOMY RMVL FB/CALCULUS 06/2010 Dr Hudson RIGHT HEART CATHETERIZATION 09/01/2011 Cardiac cath, R heart RPLCMT PROST AORTIC VALVE OPEN XCP HOMOGRF/STENT 05/06/2012 Aortic valve replacement THYROID FINE NEEDLE ASPIRATION 11/14/2004 TONSILLECTOMY PRIMARY/SECONDARY Tonsillectomy XCAPSL CTRC RMVL INSJ IO LENS PROSTH W/O ECP Cataract Extraction with PC IOL ALLERGIES Aspirin, Niacin, Simvastatin, and Vicodin [Hydrocodone-Acetaminophen] MEDICATIONS KLOR-CON M10 10 mEq tablet Take 10 mEq by mouth two times a day. meclizine (ANTIVERT) 25 mg tab Take 1 tablet by mouth every 6 hours as needed (dizziness). levothyroxine (SYNTHROID) 75 mcg tablet Take 1 tablet by mouth once daily. metoprolol succinate ER (TOPROL XL) 25 mg 24 hr tablet Take 1 tablet by mouth once daily. ONE-A-DAY WOMENS FORMULA TAB Take one(1) tablet daily. Cholestyramine-Aspartame (PREVALITE) 4 gram powder Take 4 g by mouth once daily. (Patient taking differently: Take 4 g by mouth as needed. PRN) furosemide (LASIX) 40 mg tablet Take 1 tablet by mouth twice daily. (Patient taking differently: Take 40 mg by mouth once daily.) FAMILY HISTORY Problem Relation Age of Onset other (LIVER CIRRHOSIS) Mother Alzheimer's Disease Father Social History Tobacco Use Smoking status: Never Smokeless tobacco: Never Vaping Use Vaping status: Never Used Substance Use Topics Alcohol use: Yes Comment: SLIGHT Drug use: No BP 126/80 Pulse 82 Resp 16 Wt 70 kg (154 lb 5.2 oz) SpO2 96% BMI 28.23 kg/m? Physical Exam Vitals reviewed. Constitutional: Appearance: Normal appearance. Skin: Neurological: Mental Status: She is alert. ASSESSMENT/PLAN: 1. Partial thickness burn of upper back, initial encounter - ICD9: 942.24, ICD10: T21.23XA (primary diagnosis) Healing well. No signs of wound infection. Recommend keeping open to air now. Follow-up in one week for continued monitoring. 2. Cellulitis of back except buttock - ICD9: 682.2, ICD10: L03.312 Resolved Prescription instructions reviewed with patient as applicable. Potential red flag symptoms discussed with the patient. Reviewed appropriate action plan to take if red flag symptoms occur. Patient agreeable to treatment plan. Timothy Landeros (more content not included)... [facility] 03-19-2024 History of Present illness Narrative Images from the original note were not included. CC: Patient presents with: Recheck: 1 week wound check HPI Sydney Daigle is a 88 year old female who presents today for above. Patient was seen one week ago for burn wound to mid back from heating pad and possible cellulitis. Wound care advise was given and she was treated with Doxycycline. Today patient is here with her sister again who has been assisting with wound care. She feels there has been definite improvement in wound appearance and has become a lot smaller. She did have skin irritation from paper tape but improving once she stopped using it. Patient denies pain, just feels itchy. Denies purulent drainage, fever, chills, malaise. No side effects to the antibiotics. 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, 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) Other and unspecified hyperlipidemia Personal history of colonic polyps Colon polyps Renal stone 08/19/2010 Statin intolerance 07/29/2014 Unspecified disorders of calcium metabolism Unspecified functional disorder of intestine Unspecified hearing loss RIGHT EAR ONLY PAST SURGICAL HISTORY Procedure Laterality Date ADENOIDECTOMY PRIMARY <AGE 14 Adenoidectomy ANKLE SURGERY HX 07/09/2019 BREAST LUMPECTOMY HX Left 05/03/2022 BX/EXC LYMPH NODE OPEN DEEP AXILLARY NODE Left 05/03/2022 CATARACT EXTRACTION HX 03/18/2014 CHOLECYSTECTOMY Cholecystectomy COLONOSCOPY FLX DX W/COLLJ SPEC WHEN PFRMD 10/08/94,11/11/04 Colonoscopy-repeat in COLONOSCOPY FLX DX W/COLLJ SPEC WHEN PFRMD 04/03/2016 Colonoscopy COLSC FLX W/RMVL OF TUMOR POLYP LESION SNARE TQ 11/2004 Polpectomy, lg intestine ESOPHAGOGASTRODUODENOSCOPY TRANSORAL DIAGNOSTIC 07/12/2010 EGD inpt [facility] H-pylori is negative EXCISION PARATHYROID TUMOR 2006 3 parathyroid glands removed LAPAROSCOPY SURG CHOLECYSTECTOMY 11/01/1990 Cholecystectomy, lap LEFT HEART CATH,PERCUTANEOUS 09/01/2011 Cardiac cath, L heart RENAL NDSC NEPHROS/PYELOSTOMY RMVL FB/CALCULUS 06/2010 Dr Hudson RIGHT HEART CATHETERIZATION 09/01/2011 Cardiac cath, R heart RPLCMT PROST AORTIC VALVE OPEN XCP HOMOGRF/STENT 05/06/2012 Aortic valve replacement THYROID FINE NEEDLE ASPIRATION 11/14/2004 TONSILLECTOMY PRIMARY/SECONDARY <AGE 14 Tonsillectomy XCAPSL CTRC RMVL INSJ IO LENS PROSTH W/O ECP Cataract Extraction with PC IOL ALLERGIES Aspirin, Niacin, Simvastatin, and Vicodin [Hydrocodone-Acetaminophen] MEDICATIONS KLOR-CON M10 10 mEq tablet Take 10 mEq by mouth two times a day. meclizine (ANTIVERT) 25 mg tab Take 1 tablet by mouth every 6 hours as needed (dizziness). levothyroxine (SYNTHROID) 75 mcg tablet Take 1 tablet by mouth once daily. metoprolol succinate ER (TOPROL XL) 25 mg 24 hr tablet Take 1 tablet by mouth once daily. ONE-A-DAY WOMENS FORMULA TAB Take one(1) tablet daily. Cholestyramine-Aspartame (PREVALITE) 4 gram powder Take 4 g by mouth once daily. (Patient taking differently: Take 4 g by mouth as needed. PRN) furosemide (LASIX) 40 mg tablet Take 1 tablet by mouth twice daily. (Patient taking differently: Take 40 mg by mouth once daily.) FAMILY HISTORY Problem Relation Age of Onset other (LIVER CIRRHOSIS) Mother Alzheimer's Disease Father Social History Tobacco Use Smoking status: Never Smokeless tobacco: Never Vaping Use Vaping status: Never Used Substance Use Topics Alcohol use: Yes Comment: SLIGHT Drug use: No BP 126/80 Pulse 82 Resp 16 Wt 70 kg (154 lb 5.2 oz) SpO2 96% BMI 28.23 kg/m Physical Exam Vitals reviewed. Constitutional: Appearance: Normal appearance. Skin: Neurological: Mental Status: She is alert. ASSESSMENT/PLAN: 1. Partial thickness burn of upper back, initial encounter - ICD9: 942.24, ICD10: T21.23XA (primary diagnosis) Healing well. No signs of wound infection. Recommend keeping open to air now. Follow-up in one week for continued monitoring. 2. Cellulitis of back except buttock - ICD9: 682.2, ICD10: L03.312 Resolved Prescription instructions reviewed with patient as applicable. Potential red flag symptoms discussed with the patient. Reviewed appropriate action plan to take if red flag symptoms occur. Patient agreeable to treatment plan. Yelena Mera APRN.[employer]ANT TECHNICIAN documented in this encounter [facility] 03-12-2024 Instructions Yelena Mera APRN.CNP - 03/12/2024 6:13 PM EDT Keep area(s) clean and dry. Wash with soap and water twice a day followed by SMALL AMOUNT Bacitracin ointment and a clean dressing until oozing or bleeding stops. Once wound is dry, you may leave it open to the air. (Cover if you have an open wound and are going out of the home to prevent infection) Recheck wound as scheduled with office. If any unusual pain, swelling, red streaks, pus, fever or other signs of worsening infection, call immediately. documented in this encounter [facility] 03-12-2024 Note HNO ID: [id number] Author: YELENA MERA APRN.DANIEL Service: ? Author Type: Nurse Practitioner Type: Progress Notes Filed: 03/12/2024 18:22 Note Text: CC: Patient presents with: Burn: Skin burn mid left back, possibly due to heating pad HPI Sydney Daigle is a 88 year old female who presents today for above. Patient's sister noticed what appeared to a burn on the left side of her back about 10 days ago. Patient admitted to prolonged use of heating pad with just a thin cotton shirt between the pad and the skin. They were treating with healing ointment but the skin started to slough off and developed redness around it. Patient reports discomfort when her bra rubs against it but otherwise no significant pain. Denies purulent drainage, red streaking, swelling, fever, chills or malaise. 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, 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) Other and unspecified hyperlipidemia Personal history of colonic polyps Colon polyps Renal stone 08/19/2010 Statin intolerance 07/29/2014 Unspecified disorders of calcium metabolism Unspecified functional disorder of intestine Unspecified hearing loss RIGHT EAR ONLY PAST SURGICAL HISTORY Procedure Laterality Date ADENOIDECTOMY PRIMARY Adenoidectomy ANKLE SURGERY HX 07/09/2019 BREAST LUMPECTOMY HX Left 05/03/2022 BX/EXC LYMPH NODE OPEN DEEP AXILLARY NODE Left 05/03/2022 CATARACT EXTRACTION HX 03/18/2014 CHOLECYSTECTOMY Cholecystectomy COLONOSCOPY FLX DX W/COLLJ SPEC WHEN PFRMD 10/08/94,11/11/04 Colonoscopy-repeat in -2009 COLONOSCOPY FLX DX W/COLLJ SPEC WHEN PFRMD 04/03/2016 Colonoscopy COLSC FLX W/RMVL OF TUMOR POLYP LESION SNARE TQ 11/2004 Polpectomy, lg intestine ESOPHAGOGASTRODUODENOSCOPY TRANSORAL DIAGNOSTIC 07/12/[facility] EXCISION PARATHYROID TUMOR 2006 3 parathyroid glands removed LAPAROSCOPY SURG CHOLECYSTECTOMY 11/01/1990 Cholecystectomy, lap LEFT HEART CATH,PERCUTANEOUS 09/01/2011 Cardiac cath, L heart RENAL NDSC NEPHROS/PYELOSTOMY RMVL FB/CALCULUS 06/2010 Dr Hudson RIGHT HEART CATHETERIZATION 09/01/2011 Cardiac cath, R heart RPLCMT PROST AORTIC VALVE OPEN XCP HOMOGRF/STENT 05/06/2012 Aortic valve replacement THYROID FINE NEEDLE ASPIRATION 11/14/2004 TONSILLECTOMY PRIMARY/SECONDARY Tonsillectomy XCAPSL CTRC RMVL INSJ IO LENS PROSTH W/O ECP Cataract Extraction with PC IOL ALLERGIES Aspirin, Niacin, Simvastatin, and Vicodin [Hydrocodone-Acetaminophen] MEDICATIONS KLOR-CON M10 10 mEq tablet Take 10 mEq by mouth two times a day. meclizine (ANTIVERT) 25 mg tab Take 1 tablet by mouth every 6 hours as needed (dizziness). levothyroxine (SYNTHROID) 75 mcg tablet Take 1 tablet by mouth once daily. Cholestyramine-Aspartame (PREVALITE) 4 gram powder Take 4 g by mouth once daily. (Patient taking differently: Take 4 g by mouth as needed. PRN) furosemide (LASIX) 40 mg tablet Take 1 tablet by mouth twice daily. (Patient taking differently: Take 40 mg by mouth once daily.) metoprolol succinate ER (TOPROL XL) 25 mg 24 hr tablet Take 1 tablet by mouth once daily. ONE-A-DAY WOMENS FORMULA TAB Take one(1) tablet daily. FAMILY HISTORY Problem Relation Age of Onset other (LIVER CIRRHOSIS) Mother Alzheimer's Disease Father Social History Tobacco Use Smoking status: Never Smokeless tobacco: Never Vaping Use Vaping status: Never Used Substance Use Topics Alcohol use: Yes Comment: SLIGHT Drug use: No BP 116/62 (BP Site: Left Arm, BP Position: Sitting, BP Cuff Size: Regular Adult) Pulse 68 Resp 16 Wt 71.3 kg (157 lb 3 oz) SpO2 96% BMI 28.75 kg/m? Physical Exam Vitals reviewed. Constitutional: Appearance: Normal appearance. Skin: Neurological: Mental Status: She is alert. Psychiatric: Mood and Affect: Mood normal. ASSESSMENT/PLAN: 1. Cellulitis of back except buttock - ICD9: 682.2, ICD10: L03.312 (primary diagnosis) The wound itself does not appear infected but surrounding erythema concerning for cellulitis. - Begin treatment with Doxycycline - No lymphangetic streaking, this was defined for patient to watch for and to seek medical care immediately if appears - Area of cellulitis defined with pen, seek further attention if this area continues to enlarge - Follow up for recheck in one week or sooner if ne (more content not included)... [facility] 03-12-2024 History of Present illness Narrative Images from the original note were not included. CC: Patient presents with: Burn: Skin burn mid left back, possibly due to heating pad HPI Sydney Daigle is a 88 year old female who presents today for above. Patient's sister noticed what appeared to a burn on the left side of her back about 10 days ago. Patient admitted to prolonged use of heating pad with just a thin cotton shirt between the pad and the skin. They were treating with healing ointment but the skin started to slough off and developed redness around it. Patient reports discomfort when her bra rubs against it but otherwise no significant pain. Denies purulent drainage, red streaking, swelling, fever, chills or malaise. 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, 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) Other and unspecified hyperlipidemia Personal history of colonic polyps Colon polyps Renal stone 08/19/2010 Statin intolerance 07/29/2014 Unspecified disorders of calcium metabolism Unspecified functional disorder of intestine Unspecified hearing loss RIGHT EAR ONLY PAST SURGICAL HISTORY Procedure Laterality Date ADENOIDECTOMY PRIMARY <AGE 14 Adenoidectomy ANKLE SURGERY HX 07/09/2019 BREAST LUMPECTOMY HX Left 05/03/2022 BX/EXC LYMPH NODE OPEN DEEP AXILLARY NODE Left 05/03/2022 CATARACT EXTRACTION HX 03/18/2014 CHOLECYSTECTOMY Cholecystectomy COLONOSCOPY FLX DX W/COLLJ SPEC WHEN PFRMD 10/08/94,11/11/04 Colonoscopy-repeat in -2009 COLONOSCOPY FLX DX W/COLLJ SPEC WHEN PFRMD 04/03/2016 Colonoscopy COLSC FLX W/RMVL OF TUMOR POLYP LESION SNARE TQ 11/2004 Polpectomy, lg intestine ESOPHAGOGASTRODUODENOSCOPY TRANSORAL DIAGNOSTIC 07/12/[facility] EXCISION PARATHYROID TUMOR 2006 3 parathyroid glands removed LAPAROSCOPY SURG CHOLECYSTECTOMY 11/01/1990 Cholecystectomy, lap LEFT HEART CATH,PERCUTANEOUS 09/01/2011 Cardiac cath, L heart RENAL NDSC NEPHROS/PYELOSTOMY RMVL FB/CALCULUS 06/2010 Dr Hudson RIGHT HEART CATHETERIZATION 09/01/2011 Cardiac cath, R heart RPLCMT PROST AORTIC VALVE OPEN XCP HOMOGRF/STENT 05/06/2012 Aortic valve replacement THYROID FINE NEEDLE ASPIRATION 11/14/2004 TONSILLECTOMY PRIMARY/SECONDARY <AGE 14 Tonsillectomy XCAPSL CTRC RMVL INSJ IO LENS PROSTH W/O ECP Cataract Extraction with PC IOL ALLERGIES Aspirin, Niacin, Simvastatin, and Vicodin [Hydrocodone-Acetaminophen] MEDICATIONS KLOR-CON M10 10 mEq tablet Take 10 mEq by mouth two times a day. meclizine (ANTIVERT) 25 mg tab Take 1 tablet by mouth every 6 hours as needed (dizziness). levothyroxine (SYNTHROID) 75 mcg tablet Take 1 tablet by mouth once daily. Cholestyramine-Aspartame (PREVALITE) 4 gram powder Take 4 g by mouth once daily. (Patient taking differently: Take 4 g by mouth as needed. PRN) furosemide (LASIX) 40 mg tablet Take 1 tablet by mouth twice daily. (Patient taking differently: Take 40 mg by mouth once daily.) metoprolol succinate ER (TOPROL XL) 25 mg 24 hr tablet Take 1 tablet by mouth once daily. ONE-A-DAY WOMENS FORMULA TAB Take one(1) tablet daily. FAMILY HISTORY Problem Relation Age of Onset other (LIVER CIRRHOSIS) Mother Alzheimer's Disease Father Social History Tobacco Use Smoking status: Never Smokeless tobacco: Never Vaping Use Vaping status: Never Used Substance Use Topics Alcohol use: Yes Comment: SLIGHT Drug use: No BP 116/62 (BP Site: Left Arm, BP Position: Sitting, BP Cuff Size: Regular Adult) Pulse 68 Resp 16 Wt 71.3 kg (157 lb 3 oz) SpO2 96% BMI 28.75 kg/m Physical Exam Vitals reviewed. Constitutional: Appearance: Normal appearance. Skin: Neurological: Mental Status: She is alert. Psychiatric: Mood and Affect: Mood normal. ASSESSMENT/PLAN: 1. Cellulitis of back except buttock - ICD9: 682.2, ICD10: L03.312 (primary diagnosis) The wound itself does not appear infected but surrounding erythema concerning for cellulitis. - Begin treatment with Doxycycline - No lymphangetic streaking, this was defined for patient to watch for and to seek medical care immediately if appears - Area of cellulitis defined with pen, seek further attention if this area continues to enlarge - Follow up for recheck in one week or sooner if needed. 2. Partial thickness burn of upper back, initial encounter - ICD9: 942.24, ICD10: T21.23XA Antibiotic ointment applied to wound and covered with dressing. Wound care discussed. Patient's sister is a nurse and will closely monitor this and assist with dressing changes. See above. Prescription instructions reviewed with patient as applicable. Potential red flag symptoms discussed with the patient. Reviewed appropriate action plan to take if red flag symptoms occur. Patient agreeable to treatment plan. Yelena Mera APRN.[employer] TECHNICIAN documented in this encounter [facility] 03-12-2024 Telephone encounter Note Mary, patient's friend, reports she checks on patient daily. Reports patient has had an area on her back, under bra line, that Mary has been caring for for a few days. Reports it appears as a possible heating pad burn, but Mary is not sure. [facility] has been cleaning it daily. At first Mary noticed a few blisters, but they are gone now, and the area now appears a bright red, in an area approx 2 x 2 area. Today Mary put betadine on it. Patient tells Mary the area is tender. [facility] would like a provider to look at this area and let patient know how to care for it. Wonders if patient may need an AB. Reports no drainage, no swelling at the site. Patient does not have a fever. No openings in pcp office. Scheduled same day appt with Yelena. [facility] 03-12-2024 Miscellaneous Notes Mary, patient's friend, reports she checks on patient daily. Reports patient has had an area on her back, under bra line, that Mary has been caring for for a few days. Reports it appears as a possible heating pad burn, but Mary is not sure. Mary has been cleaning it daily. At first Mary noticed a few blisters, but they are gone now, and the area now appears a bright red, in an area approx 2 x 2 area. Today Mary put betadine on it. Patient tells Mary the area is tender. Mary would like a provider to look at this area and let patient know how to care for it. Wonders if patient may need an AB. Reports no drainage, no swelling at the site. Patient does not have a fever. No openings in pcp office. Scheduled same day appt with Yelena. documented in this encounter [facility] 11-20-2023 History of Present illness Narrative Patient presents with: Follow Up HPI: Patient presents today for office visit for follow up. THYROID: Continues taking Levothyroxine 75 mcg daily Compliant with taking medication Denies any energy, hair or skin changes No weight change. Refers to not eating as much as she used to. Denies temperature intolerances Continues on Meclizine for vertigo. Has not had to use for quite awhile. Helping. Follows with Dr. Monsalve. Denies chest pain. Denies shortness of breath Denies swelling to feet, ankles or legs. Continues on Lasix 40 mg daily Followed by Dr. Ambrose. No bowel concerns or issues. Has had a few falls since last visit. No injury from falls. Did not need to go to ER. Offered physical therapy. Declines. [facility]. Ambulates with cane while outside of her house. Uses her furniture to hold on to while at home. Declines new neuro complaints. Has a scab where her hip incision was. No current drainage. No redness or warmth. They did not call her surgeon. Latest Ref Rng 11/15/2023 Protein, Total 6.3 - 8.0 g/dL 7.0 Albumin 3.9 - 4.9 g/dL 4.2 Calcium 8.5 - 10.2 mg/dL 9.8 Bilirubin, Total 0.2 - 1.3 mg/dL 0.4 Alkaline Phosphatase 34 - 123 U/L 87 AST 13 - 35 U/L 34 ALT 7 - 38 U/L 15 Glucose 74 - 99 mg/dL 86 BUN 7 - 21 mg/dL 16 Creatinine 0.58 - 0.96 mg/dL 0.69 Sodium 136 - 144 mmol/L 142 Potassium 3.7 - 5.1 mmol/L 4.3 Chloride 98 - 107 mmol/L 100 CO2 22 - 30 mmol/L 31 (H) Anion Gap 8 - 15 mmol/L 11 eGFR >=60 mL/min/1.73m 85 TSH 0.270 - 4.200 mIU/L 2.790 Legend: (H) High MEDICATIONS: Current Outpatient Medications Medication Sig KLOR-CON M10 10 mEq tablet Take 10 mEq by mouth two times a day. meclizine (ANTIVERT) 25 mg tab Take 1 tablet by mouth every 6 hours as needed (dizziness). levothyroxine (SYNTHROID) 75 mcg tablet Take 1 tablet by mouth once daily. Cholestyramine-Aspartame (PREVALITE) 4 gram powder Take 4 g by mouth once daily. (Patient taking differently: Take 4 g by mouth as needed. PRN) furosemide (LASIX) 40 mg tablet Take 1 tablet by mouth twice daily. (Patient taking differently: Take 40 mg by mouth once daily.) metoprolol succinate ER (TOPROL XL) 25 mg 24 hr tablet Take 1 tablet by mouth once daily. ONE-A-DAY WOMENS FORMULA TAB Take one(1) tablet daily. No current facility-administered medications for this visit. ALLERGIES: ALLERGIES Allergen Reactions Aspirin Other: See Comments bleeding duodenal ulcer Niacin Other: See Comments hot flashing Simvastatin BODYACHES Vicodin [Hydrocodon* GI Upset PAST MEDICAL HISTORY Diagnosis Date Anemia due to GI blood loss 08/19/2010 duodenal ulcer Aortic valve stenosis, moderate 08/19/2010 aortic valve replacement 05/06/12 Benign hypertension 02/28/2016 BPPV (benign paroxysmal positional vertigo) Breast cancer (HCC) 05/03/2022 left Broken ankle 06/30/2019 Chronic diastolic heart failure (HCC) 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 History of aortic valve replacement with bioprosthetic valve Hyperparathyroidism, unspecified (HCC) parathyroidectomy 2007 Hypothyroidism 08/19/2010 Nocturnal hypoxia 05/12/2013 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, 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) Other and unspecified hyperlipidemia Personal history of colonic polyps Colon polyps Renal stone 08/19/2010 Statin intolerance 07/29/2014 Unspecified disorders of calcium metabolism Unspecified functional disorder of intestine Unspecified hearing loss RIGHT EAR ONLY PAST SURGICAL HISTORY Procedure Laterality Date ADENOIDECTOMY PRIMARY <AGE 14 Adenoidectomy ANKLE SURGERY HX 07/09/2019 BREAST LUMPECTOMY HX Left 05/03/2022 BX/EXC LYMPH NODE OPEN DEEP AXILLARY NODE Left 05/03/2022 CATARACT EXTRACTION HX 03/18/2014 CHOLECYSTECTOMY Cholecystectomy COLONOSCOPY FLX DX W/COLLJ SPEC WHEN PFRMD 10/08/94,11/11/04 Colonoscopy-repeat in COLONOSCOPY FLX DX W/COLLJ SPEC WHEN PFRMD 04/03/2016 Colonoscopy COLSC FLX W/RMVL OF TUMOR POLYP LESION SNARE TQ 11/2004 Polpectomy, lg intestine ESOPHAGOGASTRODUODENOSCOPY TRANSORAL DIAGNOSTIC [facility] PARATHYROID TUMOR 2006 3 parathyroid glands removed LAPAROSCOPY SURG CHOLECYSTECTOMY 11/01/1990 Cholecystectomy, lap LEFT HEART CATH,PERCUTANEOUS 09/01/2011 Cardiac cath, L heart RENAL NDSC NEPHROS/PYELOSTOMY RMVL FB/CALCULUS 06/2010 Dr Hudson RIGHT HEART CATHETERIZATION 09/01/2011 Cardiac cath, R heart RPLCMT PROST AORTIC VALVE OPEN XCP HOMOGRF/STENT 05/06/2012 Aortic valve replacement THYROID FINE NEEDLE ASPIRATION 11/14/2004 TONSILLECTOMY PRIMARY/SECONDARY <AGE 14 Tonsillectomy XCAPSL CTRC RMVL INSJ IO LENS PROSTH W/O ECP Cataract Extraction with PC IOL FAMILY HISTORY Problem Relation Age of Onset other (LIVER CIRRHOSIS) Mother Alzheimer's Disease Father Social History Tobacco Use Smoking status: Never Smokeless tobacco: Never Vaping Use Vaping Use: Never used Substance Use Topics Alcohol use: Yes Comment: SLIGHT Drug use: No Reviewed current medications, allergies, past medical history, surgical history, family history and social history today. REVIEW OF SYSTEMS All other reviewed and negative other than HPI. HEALTH MAINTENANCE: Reviewed health maintenance issues today and recommended the following in detail. Bone Density Screening due on 12/24/2013 Advance Directive Discussion due on 05/21/2023 Behavioral Health Screening Never done VITALS: BP 102/66 Pulse 63 Ht 157.5 cm (5' 2) Wt 70.3 kg (155 lb) SpO2 93% BMI 28.35 kg/m Last 4 Encounter Wt Readings: Date: Wt: 05/22/2023 69.9 kg (154 lb 3.2 oz) 03/22/2023 68.5 kg (151 lb) 03/20/2023 68.5 kg (151 lb) 02/15/2023 73 kg (161 lb) PHYSICAL EXAMINATION: General appearance: Well appearing, alert, in no acute distress, well-hydrated, well nourished. Skin: has what appears to be an eschar over the area. No redness or warmth. Suggested she start with ortho. Has what appears to be an inclusion cyst on right axilla. Head: Normocephalic, no masses, lesions, tenderness or abnormalitie LungsRRR. Murmur unchanged, gallop, or rubs. No ectopy Abdomen: Normal abdominal exam, Abdomen soft, non-tender. Bowel sounds normal. No masses, organomegaly Extremities: No deformities, edema, skin discoloration, clubbing or cyanosis. Good capillary refill. ASSESSMENT/PLAN: 1. Benign hypertension - ICD9: 401.1, ICD10: I10 (primary diagnosis) - Controlled - Continue current medications 2. Chronic diastolic congestive heart failure (HCC) - ICD9: 428.32, 428.0, ICD10: I50.32 - follow progess. 3. S/P aortic valve replacement - ICD9: V43.3, ICD10: Z95.2 -no change. 4. Secondary pulmonary arterial hypertension (HCC) - ICD9: 416.8, ICD10: I27.21 - stable. 5. Hyperlipidemia LDL goal <100 - ICD9: 272.4, ICD10: E78.5 - Controlled - Continue current medications - Counseled on healthy diet and regular exercise 6. Stenosis of prosthetic aortic valve, subsequent encounter - ICD9: V58.89, 996.71, ICD10: T82.857D - per cardiology 7. Acquired hypothyroidism - ICD9: 244.9, ICD10: E03.9 - stable. 8. Malignant neoplasm of left female breast, unspecified estrogen receptor status, unspecified site of breast (HCC) - ICD9: 174.9, ICD10: C50.912 - has mammogram in the fall. 9. Age-related osteoporosis without current pathological fracture - ICD9: 733.01, ICD10: M81.0 - declines follow up. 10. Statin intolerance - ICD9: 995.27, ICD10: Z78.9 - stable. 11. Vertigo - ICD9: 780.4, ICD10: R42 - call if worsens. Discussed safety issues. Ethan Donald MD documented in this encounter [facility] 11-14-2023 Telephone encounter Note Pt called and is notified of providers message and instructions. Pt voices understanding. Vivian Contreras RN [facility] 11-14-2023 Miscellaneous Notes Pt called and is notified of providers message and instructions. Pt voices understanding. Vivian Contreras RN Orders placed for fasting labs. Love Concepcion APRN.[employer] TECHNICIAN Appt next Sunday 11/[address] Donald. Unsure if any labs need to be done for pt at this time. Will forward to provider for review. Pt has appointment with Dr. Donald. Would like to come in and get labs done. Please advise pt if lab orders are placed. She would like to get them done before the visit date. documented in this encounter [facility] 11-14-2023 Telephone encounter Note Orders placed for fasting labs. Love Concepcion APRN.DANIEL [facility] 11-14-2023 Telephone encounter Note Appt next Sunday 11/[address] Donald. Unsure if any labs need to be done for pt at this time. Will forward to provider for review. [facility] 11-14-2023 Telephone encounter Note Pt has appointment with Dr. Donald. Would like to come in and get labs done. Please advise pt if lab orders are placed. She would like to get them done before the visit date. T [facility] Work Phone: 04-25-2023 Discharge summary Note Date/Time April 25, 2023 10:04am [facility] Medical Records Department [address] [place] [address] Discharge Summary 04/25/23 1003 MR#: [id number] Acct: [id number] Name: SYDNEY DAIGLE Rep #:[id number] : 1935 87 From: Rene Kim MD PCP: Dr. Ethan Donald MD Status:ADM I N Location: [place] [address] Providers Date of Admission: 04/17/23 Date of Discharge: 04/25/23 Primary Care Physician: Dr. Ethna Donald MD Consultations 04/17/23 22:14 Consult: Orthopedics Routine Consulting Provider: Abdirashid Pinto Reason for Consult: hip fxr EMERGENT Consult: No MD Notified: Yes Date Notified: 04/17/23 Time Notified: 21:04 Method of Notification: ED Physician Initiated Reason For Visit: LEFT HIP FRACTURE Diagnosis Discharge Diagnosis (1) Fracture of left hip: Status: Acute Code(s): S72.002A - Fracture of unspecified part of neck of left femur, initial encounterfor closed fracture Qualifiers: Encounter type: initial encounter Fracture type: closed Qualified Code(s): S72.002A - Fracture of unspecified part of neck of left femur, initial encounter for closed fracture Plan Patient is an 87-year-old lady admitted following a fall found to have left hip fracture underwent ORIF on 04/19/2023 1. Fall with left hip femoral neck displaced fracture ? Patient underwent left hip hemiarthroplasty on 04/19/2023. 2. Physical deconditioning - Requested for PT OT eval and professor of social work to assist with discharge planning 3. Chronic hypoxia ? Secondary to chronically elevated diaphragm as well as obstructive sleep apnea ? Patient is on CPAP at night. Pulmonary toileting encouraged 4. Hypertension - Blood pressure controlled, home medications continued with dose adjustment as needed 5. Hypothyroidism - Patient is on levothyroxine home dose continued 6. 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 DVT prophylaxis ? On apixaban plan is to continue for 3 weeks Time spent in the patient's overall evaluation,decision-making process, review of diagnostic data, adjustment of management, discussion with other providers, nursing nursing and ancillary staff involved in patient's care documentation, 35minutes Medications at Discharge Home Medications calcium carbonate 600 mg-vitamin D3 20 mcg (800 unit) tablet 1 tab PO DAILY supplement 06/30/19 cholecalciferol (vitamin D3) 25 mcg (1,000 unit) tablet 1,000 unit PO DAILY supplement 06/30/19 multivitamin with minerals 1 tab PO DAILY supplement 06/30/19 potassium chloride 10 mEq tablet,extended release(part/cryst) 10 meq PO BIDCM 08/22/19 meclizine 25 mg tablet 25 mg PO TID PRN PRN dizziness #21 tabs 12/04/21 furosemide 40 mg tablet 40 mg PO DAILY #90 tabs 05/23/22 levothyroxine 75 mcg tablet 75 mcg PO DAILY #90 tabs 05/23/22 metoprolol succinate 25 mg tablet,extended release 24 hr 25 mg PO DAILY #90 tabs08/28/22 acetaminophen 325 mg tablet 650 mg (2 x 325 mg) PO Q6H PRN PRN Pain 1-10 Or Fever >100.7 #0 tabs 04/25/23 apixaban 5 mg tablet (Eliquis) 2.5 mg (1/2 x 5 mg) PO BID #40 tabs 04/25/23 calcium carbonate 200 mg calcium (500 mg) chewable tablet 500 mg (2.5 x 200 mg calcium (500 mg)) PO TIDCM #0 tabs 04/25/23 oxycodone 5 mg tablet 5 mg PO Q4H PRN PRN Pain Score 4-10 3 days #12 tabs 04/25/23 sennosides 8.6 mg-docusate sodium 50 mg tablet (Stool Softener-Stimulant Laxative) 2 tab PO BID #0 tabs 04/25/23 Hospital Course Summary of Care Provided Minutes Spent on Discharge: 35 Physical Exam Narrative GENERAL: cooperative HEENT: Atraumatic; normocephalic EYES; Anicteric, Normal Conjunctiva NECK; supple, normal thyroid, RESPIRATORY: Diminished to auscultation CARDIOVASCULAR: Regular S1 S2, GI: soft, normoactive bowel sounds, : No Renal angle tenderness; EXTREMITIES: No edema, no clubbing, MUSCULOSKELETAL: no muscle wasting NEURO: Awake; oriented to place and person SKIN: No Rash PSYCH; Flat affect Weight / BMI Weight Weight: 71.1 kg Body Mass Index (BMI) 28.8 ABG / Lab / Microbiology Data 04/21/23 07:06 04/21/23 07:06 Microbiology: Microbiology 04/18/23 11:15 Mucosa - Nose Respiratory Panel (PCR) - Final 04/18/23 08:35 Nasal Secretion SARS-CoV-2 & FLU Antigen (Rapid) - Final D/C Instructions Discharge Diet: No restrictions Discharge Activity: Return to Normal Activity Call your doctor if you observe: Fever of 101 or Higher, Shortness of breath, Fainting spells and Chest pain Meaningful Use Info Meaningful Use Diagnoses (Choose all that apply): None applicable Discharge Plan Admission Admit Date/Time: 04/17/23 21:00 Attending Provider: Rene Kim Primary Care Provider: Ethan Donald Consulting Providers: Abdirashid Pinto; Koby Ochoa; Sarah Marie Instructions Additional Instructions / Restrictions: -Should leave dressing undisturbed for 5 days as long as not leaking through, atwhich point dressing should be removed and incision should be cleaned daily withantibacterial soap and warm water and dry dressing replaced daily at that point -Follow-up in the office 2 weeks with orthopedics -PT OT weightbearing as tolerated with hip precautions -DVT prophylaxis Eliquis 2.5 mg twice daily for 3 weeks Discharge Orders/Prescriptions Prescriptions: New acetaminophen 325 mg Tablet 650 mg PO Q6H PRN PRN (Reason: Pain 1-10 Or Fever >100.7) Qty: 0 0RF Eliquis 5 mg Tablet 2.5 mg PO BID Qty: 40 0RF sennosides-docusate sodium [Stool Softener-Stimulant Laxat] 8.6-50 mg Tablet 2 tab PO BID Qty: 0 0RF calcium carbonate 200 mg calcium (500 mg) Tablet,Chewable 500 mg PO TIDCM Qty: 0 0RF oxycodone 5 mg Tablet 5 mg PO Q4H PRN PRN (Reason: Pain Score 4-10) 3 Days Qty: 12 0RF Continued multivitamin with minerals 1 EACH tablet 1 tab PO DAILY cholecalciferol (vitamin D3) 1,000 UNIT tablet 1,000 unit PO DAILY calcium carbonate-vitamin D3 1 EACH tablet 1 tab PO DAILY potassium chloride 10 MEQ tablet 10 meq PO BIDCM 0RF meclizine 25 mg Tablet 25 mg PO TID PRN PRN (Reason: dizziness) Qty: 21 0RF levothyroxine 75 mcg tablet 75 mcg PO DAILY Qty: 90 3RF furosemide 40 mg tablet 40 mg PO DAILY Qty: 90 3RF metoprolol succinate 25 mg tablet extended release 24 hr 25 mg PO DAILY Qty: 90 3RF Referrals / Follow Up: Ethan Donald MD [Primary Care Provider] - Disposition Disposition (needs filled in before D/C Order can be placed): [facility] Facility Charges/Coding Visit Charges Inpatient E&M: 30804 Disch Hosp >30min 04/25/23 1004 <Electronically signed by Rene Kim MD> Cosigner Signature (if applicable): CC: Dr. Rene Kim MD; Dr. Ethan Donald MD~ Signed [facility] Work Phone: 1(832) 509-439412-06-2023 Discharge summary Author Rene Kim [facility] April 25, 2023 10:03am Note Date/Time April 25, 2023 9 :58am [facility] Medical Records Department [address] [place] [address] Transfer to [facility] MR#: [id number] Acct: [id number] Name: SYDNEY DAIGLE Rep #:[id number] : 1935 87 From: Rene Kim MD PCP: Dr. Ethan Donald MD Status:ADM I N Certification of patient admission REQUIRED AT TIME OF ADMISSION. I CERTIFY THAT POST-HOSPITAL ECF SERVICES ARE REQUIRED TO BE GIVEN ON AN IN-PATIENT BASIS BECAUSE OF THE ABOVE NAMED PATIENT'S NEED FOR INTERMEDIATE CARE ON A CONTINUING BASIS FOR THE CONDITION(S) FOR WHICH HE/SHE WAS RECEIVING IN-PATIENT HOSPITAL SERVICES PRIOR TO HIS/HER TRANSFER TO THE ECF. 04/25/23 1003<Electronically signed by Rene Kim MD> Diet Diet Order/Speech Therapy: 04/19/23 14:32 Diet: Regular - General Is pt able to select menu?: Yes Wound(s) lt hip: Wound Type: Surgical Incision Therapies Physical Therapy: Eval and Treat Occupational Therapy: Eval and Treat Problem/Diagnosis (1) Fracture of left hip: Status: Acute Code(s): S72.002A - Fracture of unspecified part of neck of left femur, initial encounterfor closed fracture Plan Patient is an 87-year-old lady admitted following a fall found to have left hip fracture underwent ORIF on 04/19/2023 1. Fall with left hip femoral neck displaced fracture ? Patient underwent left hip hemiarthroplasty on 04/19/2023. 2. Physical deconditioning - Requested for PT OT eval and professor of social work to assist with discharge planning 3. Chronic hypoxia ? Secondary to chronically elevated diaphragm as well as obstructive sleep apnea ? Patient is on CPAP at night. Pulmonary toileting encouraged 4. Hypertension - Blood pressure controlled, home medications continued with dose adjustment as needed 5. Hypothyroidism - Patient is on levothyroxine home dose continued 6. 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 DVT prophylaxis ? On apixaban plan is to continue for 3 weeks Time spent in the patient's overall evaluation,decision-making process, review of diagnostic data, adjustment of management, discussion with other providers, nursing nursing and ancillary staff involved in patient's care documentation, 25minutes Allergies/Procedures Done in Hospital Allergies aspirin Allergy (Verified 04/19/23 06:57) made my blood too thin hydrocodone [From Vicodin] Allergy (Verified 04/19/23 06:57) feels like getting high niacin Adverse Reaction (Verified 04/19/23 06:57) severe sweating simvastatin Adverse Reaction (Verified 04/19/23 06:57) muscle aches Type of Care/Length of Stay Estimated LOS: Convalescent Care Less Than 30 days Type of Care Needed: Skilled Rehab Potential: Good Prognosis: Good Additional Orders/Day of Discharge Day of Discharge: 04/25/23 Dietary and Speech Recommendations Dietitian Recommendations/Changes: Continue liberalized Regular diet to optimizeoral intakes. Discharge Plan Admission Admit Date/Time: 04/17/23 21:00 Attending Provider: Rene Kim Primary Care Provider: Ethan Donald Consulting Providers: Abdirashid Pinto; Koby Ochoa; Sarah Marie Instructions Additional Instructions / Restrictions: -Should leave dressing undisturbed for 5 days as long as not leaking through, atwhich point dressing should be removed and incision should be cleaned daily withantibacterial soap and warm water and dry dressing replaced daily at that point -Follow-up in the office 2 weeks with orthopedics -PT OT weightbearing as tolerated with hip precautions -DVT prophylaxis Eliquis 2.5 mg twice daily for 3 weeks Discharge Orders/Prescriptions Prescriptions: New acetaminophen 325 mg Tablet 650 mg PO Q6H PRN PRN (Reason: Pain 1-10 Or Fever >100.7) Qty: 0 0RF Eliquis 5 mg Tablet 2.5 mg PO BID Qty: 40 0RF sennosides-docusate sodium [Stool Softener-Stimulant Laxat] 8.6-50 mg Tablet 2 tab PO BID Qty: 0 0RF calcium carbonate 200 mg calcium (500 mg) Tablet,Chewable 500 mg PO TIDCM Qty: 0 0RF oxycodone 5 mg Tablet 5 mg PO Q4H PRN PRN (Reason: Pain Score 4-10) 3 Days Qty: 12 0RF Continued multivitamin with minerals 1 EACH tablet 1 tab PO DAILY cholecalciferol (vitamin D3) 1,000 UNIT tablet 1,000 unit PO DAILY calcium carbonate-vitamin D3 1 EACH tablet 1 tab PO DAILY potassium chloride 10 MEQ tablet 10 meq PO BIDCM 0RF meclizine 25 mg Tablet 25 mg PO TID PRN PRN (Reason: dizziness) Qty: 21 0RF levothyroxine 75 mcg tablet 75 mcg PO DAILY Qty: 90 3RF furosemide 40 mg tablet 40 mg PO DAILY Qty: 90 3RF metoprolol succinate 25 mg tablet extended release 24 hr 25 mg PO DAILY Qty: 90 3RF Referrals / Follow Up: Ethan Donald MD [Primary Care Provider] - Disposition Disposition (needs filled in before D/C Order can be placed): Retirement Facility (1) Fracture of left hip Qualifiers: Encounter type: initial encounter Fracture type: closed Qualified Code(s): S72.002A - Fracture of unspecified part of neck of left femur, initial encounterfor closed fracture 04/25/23 1003 <Electronically signed by Rene Kim MD> Cosigner Signature (if applicable): CC: Dr. Koby Ochoa DO; Dr. Abdirashid Pinto DO; Dr. Sarah Marie MD; Dr. Ethan Donald MD ~ [facility] Work Phone: 1(684) 666-991212-06-2023 Progress note Author Rene Kim [facility] April 25, 2023 9:30am Note Date/Time April 25, 2023 7 :57am [facility] Medical Records Department [address] [place] [id number] Progress Note - Hospitalist 04/25/23 0755 MR#: [id number] Acct: [id number] Name: SYDNEY DAIGLE Rep #:[id number] : 1935 87 From: Rene Kim MD PCP: Dr. Ethan Donald MD Status:ADM I N Location: [place] [address] Reason for Visit Reason for Visit: Diagnoses Other elevated white blood cell count (04/17/23) Hypothyroidism, unspecified (04/17/23) Obstructive sleep apnea (adult) (pediatric) (04/17/23) Essential (primary) hypertension (04/17/23) Secondary pulmonary arterial hypertension (04/17/23) Chronic diastolic (congestive) heart failure (04/17/23) Disorders of diaphragm (04/17/23) Fracture of unspecified part of neck of left femur, initial encounter for closedfracture (04/17/23) Presence of other heart-valve replacement (04/17/23) Subjective Subjective Patient seen awaiting transfer to [facility] facility Objective Data Objective Data Vital Signs: Vital Signs Temp Pulse Resp BP Pulse Ox O2 Del Method O2 Flow Rate 97.8 F 80 20 H 107/54 L 92 CPAP 2 04/25/23 07:45 04/25/23 07:45 04/25/23 07:45 04/25/23 07:45 04/25/23 07:45 04/25/23 07:45 04/24/23 15:00 Oxygen Flow Rate (L/min) 2 Oxygen Delivery Method CPAP Weight: 71.1 kg Body Mass Index (BMI) 28.8 Intake & Output: Intake and Output for Last 24 Hours 04/23/23 04/24/23 04/25/23 23:59 23:59 23:59 Intake Total 760 / 760 300 / 300 Output Total 200 / 200 700 / 700 500 / 500 Balance 560 / 560 -400 / -400 -500 / -500 Lab / Micro Data 04/21/23 07:06 04/21/23 07:06 Micro: Microbiology 04/18/23 11:15 Mucosa - Nose Respiratory Panel (PCR) - Final 04/18/23 08:35 Nasal Secretion SARS-CoV-2 & FLU Antigen (Rapid) - Final Physical Exam Narrative GENERAL: cooperative HEENT: Atraumatic; normocephalic EYES; Anicteric, Normal Conjunctiva NECK; supple, normal thyroid, RESPIRATORY: Diminished to auscultation CARDIOVASCULAR: Regular S1 S2, GI: soft, normoactive bowel sounds, : No Renal angle tenderness; EXTREMITIES: No edema, no clubbing, MUSCULOSKELETAL: no muscle wasting NEURO: Awake; oriented to place and person SKIN: No Rash PSYCH; Flat affect Assessment & Plan Assessment/Plan (1) Fracture of left hip: QUALIFIERS: Encounter type: initial encounter Fracture type: closed Qualified Code(s): S72.002A - Fracture of unspecified part of neck of left femur, initial encounter for closed fracture PLAN: Plan Patient is an 87-year-old lady admitted following a fall found to have left hip fracture underwent ORIF on 04/19/2023 1. Fall with left hip femoral neck displaced fracture ? Patient underwent left hip hemiarthroplasty on 04/19/2023. 2. Physical deconditioning - Requested for PT OT eval and professor of social work to assist with discharge planning 3. Chronic hypoxia ? Secondary to chronically elevated diaphragm as well as obstructive sleep apnea ? Patient is on CPAP at night. Pulmonary toileting encouraged 4. Hypertension - Blood pressure controlled, home medications continued with dose adjustment as needed 5. Hypothyroidism - Patient is on levothyroxine home dose continued 6. 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 DVT prophylaxis ? On apixaban plan is to continue for 3 weeks Time spent in the patient's overall evaluation,decision-making process, review of diagnostic data, adjustment of management, discussion with other providers, nursing nursing and ancillary staff involved in patient's care documentation, 25minutes Charges/Coding Visit Charges Inpatient E&M: 60501 Subs Hosp L2 04/25/23 0930 <Electronically signed by Rene Kim MD> Cosigner Signature (if applicable): CC: ~ Signed [facility] Work Phone: 1(168) 997-381012-05-2023 Progress note Author Rene Philipsamuel [facility] April 24, 2023 9:57am Note Date/Time April 24, 2023 7 :36am [facility] Medical Records Department [address] [place] [id number] Progress Note - Hospitalist 04/24/23 0736 MR#: [id number] Acct: [id number] Name: SYDNEY DAIGLE Rep #:[id number] : 1935 87 From: Rene Kim MD PCP: Dr. Ethan Donald MD Status:ADM I N Location: [place] [address] Reason for Visit Reason for Visit: Diagnoses Other elevated white blood cell count (04/17/23) Hypothyroidism, unspecified (04/17/23) Obstructive sleep apnea (adult) (pediatric) (04/17/23) Essential (primary) hypertension (04/17/23) Secondary pulmonary arterial hypertension (04/17/23) Chronic diastolic (congestive) heart failure (04/17/23) Disorders of diaphragm (04/17/23) Fracture of unspecified part of neck of left femur, initial encounter for closedfracture (04/17/23) Presence of other heart-valve replacement (04/17/23) Subjective Subjective Patient seen has tolerated physical therapy well so far awaiting insurance precertification prior to transfer to [facility] facility Objective Data Objective Data Vital Signs: Vital Signs Temp Pulse Resp BP Pulse Ox O2 Del Method O2 Flow Rate 97.9 F 84 16 100/55 L 100 CPAP 2 04/24/23 05:37 04/24/23 05:37 04/24/23 05:37 04/24/23 05:37 04/24/23 05:37 04/24/23 05:37 04/23/23 20:40 Oxygen Flow Rate (L/min) 2 Oxygen Delivery Method CPAP Weight: 71.3 kg Body Mass Index (BMI) 28.7 Intake & Output: Intake and Output for Last 24 Hours 04/22/23 04/23/23 04/24/23 23:59 23:59 23:59 Intake Total 1150 / 1150 760 / 760 Output Total 100 / 100 200 / 200 400 / 400 Balance 1050 / 1050 560 / 560 -400 / -400 Lab / Micro Data 04/21/23 07:06 04/21/23 07:06 Micro: Microbiology 04/18/23 11:15 Mucosa - Nose Respiratory Panel (PCR) - Final 04/18/23 08:35 Nasal Secretion SARS-CoV-2 & FLU Antigen (Rapid) - Final Physical Exam Narrative GENERAL: cooperative HEENT: Atraumatic; normocephalic EYES; Anicteric, Normal Conjunctiva NECK; supple, normal thyroid, RESPIRATORY: Diminished to auscultation CARDIOVASCULAR: Regular S1 S2, GI: soft, normoactive bowel sounds, : No Renal angle tenderness; EXTREMITIES: No edema, no clubbing, MUSCULOSKELETAL: no muscle wasting NEURO: Awake; oriented to place and person SKIN: No Rash PSYCH; Flat affect Assessment & Plan Assessment/Plan (1) Fracture of left hip: QUALIFIERS: Encounter type: initial encounter Fracture type: closed Qualified Code(s): S72.002A - Fracture of unspecified part of neck of left femur, initial encounter for closed fracture PLAN: Plan Patient is an 87-year-old lady admitted following a fall found to have left hip fracture underwent ORIF on 04/19/2023 1. Fall with left hip femoral neck displaced fracture ? Patient underwent left hip hemiarthroplasty on 04/19/2023. 2. Physical deconditioning - Requested for PT OT eval and professor of social work to assist with discharge planning 3. Chronic hypoxia ? Secondary to chronically elevated diaphragm as well as obstructive sleep apnea ? Patient is on CPAP at night. Pulmonary toileting encouraged 4. Hypertension - Blood pressure controlled, home medications continued with dose adjustment as needed 5. Hypothyroidism - Patient is on levothyroxine home dose continued 6. 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 DVT prophylaxis ? On apixaban plan is to continue for 3 weeks Time spent in the patient's overall evaluation,decision-making process, review of diagnostic data, adjustment of management, discussion with other providers, nursing nursing and ancillary staff involved in patient's care documentation, 35minutes Charges/Coding Visit Charges Inpatient E&M: 78539 Subs Hosp L2 04/24/23 0957 <Electronically signed by Rene Kim MD> Cosigner Signature (if applicable): CC: ~ Signed [facility] Work Phone: 1(449) 819-305612-04-2023 Progress note Author Rene Kim [facility] April 23, 2023 9:35am Note Date/Time April 23, 2023 7 :42am [facility] Medical Records Department [address] [facility] [place] [address] Progress Note - Hospitalist 04/23/23 0741 MR#: [id number] Acct: [id number] Name: SYDNEY DAIGLE Adriane Rep #:[id number] : 1935 87 From: Rene Kim MD PCP: Dr. Ethan Donald MD Status:ADM I N Location: [place] [address] Reason for Visit Reason for Visit: Diagnoses Other elevated white blood cell count (04/17/23) Hypothyroidism, unspecified (04/17/23) Obstructive sleep apnea (adult) (pediatric) (04/17/23) Essential (primary) hypertension (04/17/23) Secondary pulmonary arterial hypertension (04/17/23) Chronic diastolic (congestive) heart failure (04/17/23) Disorders of diaphragm (04/17/23) Fracture of unspecified part of neck of left femur, initial encounter for closedfracture (04/17/23) Presence of other heart-valve replacement (04/17/23) Subjective Subjective Patient is an 87-year-old lady admitted following a fall found to have left hip fracture underwent ORIF on 04/19/2023 Objective Data Objective Data Vital Signs: Vital Signs Temp Pulse Resp BP Pulse Ox O2 Del Method O2 Flow Rate 98 F 78 16 113/49 L 95 Room Air 2 04/23/23 05:05 04/23/23 05:05 04/23/23 05:05 04/23/23 05:05 04/23/23 05:05 04/23/23 07:22 04/22/23 20:26 Oxygen Flow Rate (L/min) 2 Oxygen Delivery Method Room Air Weight: 71.1 kg Body Mass Index (BMI) 28.6 Intake & Output: Intake and Output for Last 24 Hours 04/21/23 04/22/23 04/23/23 23:59 23:59 23:59 Intake Total 800 / 1000 1150 / 1150 100 / 100 Output Total 550 / 550 100 / 100 200 / 200 Balance 250 / 450 1050 / 1050 -100 / -100 Lab / Micro Data 04/21/23 07:06 04/21/23 07:06 Micro: Microbiology 04/18/23 11:15 Mucosa - Nose Respiratory Panel (PCR) - Final 04/18/23 08:35 Nasal Secretion SARS-CoV-2 & FLU Antigen (Rapid) - Final Physical Exam Narrative GENERAL: cooperative HEENT: Atraumatic; normocephalic EYES; Anicteric, Normal Conjunctiva NECK; supple, normal thyroid, RESPIRATORY: Diminished to auscultation CARDIOVASCULAR: Regular S1 S2, GI: soft, normoactive bowel sounds, : No Renal angle tenderness; EXTREMITIES: No edema, no clubbing, MUSCULOSKELETAL: no muscle wasting NEURO: Awake; oriented to place and person SKIN: No Rash PSYCH; Flat affect Assessment & Plan Assessment/Plan (1) Fracture of left hip: QUALIFIERS: Encounter type: initial encounter Fracture type: closed Qualified Code(s): S72.002A - Fracture of unspecified part of neck of left femur, initial encounter for closed fracture (2) History of aortic valve replacement with bioprosthetic valve: (3) Chronic diastolic (congestive) heart failure: (4) Essential (primary) hypertension: (5) Secondary pulmonary arterial hypertension: (6) Elevated diaphragm: (7) Hypothyroidism: (8) ANDRY (obstructive sleep apnea): PLAN: Plan Patient is an 87-year-old lady admitted following a fall found to have left hip fracture underwent ORIF on 04/19/2023 1. Fall with left hip femoral neck displaced fracture ? Patient underwent left hip hemiarthroplasty on 04/19/2023. 2. Physical deconditioning - Requested for PT OT eval and professor of social work to assist with discharge planning 3. Chronic hypoxia ? Secondary to chronically elevated diaphragm as well as obstructive sleep apnea ? Patient is on CPAP at night. Pulmonary toileting encouraged 4. Hypertension - Blood pressure controlled, home medications continued with dose adjustment as needed 5. Hypothyroidism - Patient is on levothyroxine home dose continued 6. 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 DVT prophylaxis ? On apixaban plan is to continue for 3 weeks Time spent in the patient's overall evaluation,decision-making process, review of diagnostic data, adjustment of management, discussion with other providers, nursing nursing and ancillary staff involved in patient's care documentation, 35minutes Charges/Coding Visit Charges Inpatient E&M: 11358 Subs Hosp L2 04/23/23 0935 <Electronically signed by Rene Kim MD> Cosigner Signature (if applicable): CC: ~ Signed [facility] Work Phone: 1(437) 380-802412-03-2023 Progress note Author Sarah Marie [facility] April 22, 2023 9:50am Note Date/Time April 22, 2023 7 :27am [facility] Medical Records Department [address] [place] [address] Progress Note - Hospitalist 04/22/23725 MR#: [id number] Acct: [id number] Name: SYDNEY DAIGLE Rep #:[id number] : 1935 87 From: Sarah Marie MD PCP: Dr. Ethan Donald MD Status:ADM I N Location: [place] [address] Reason for Visit Reason for Visit: Diagnoses Other elevated white blood cell count (04/17/23) Hypothyroidism, unspecified (04/17/23) Obstructive sleep apnea (adult) (pediatric) (04/17/23) Essential (primary) hypertension (04/17/23) Secondary pulmonary arterial hypertension (04/17/23) Chronic diastolic (congestive) heart failure (04/17/23) Disorders of diaphragm (04/17/23) Fracture of unspecified part of neck of left femur, initial encounter for closedfracture (04/17/23) Presence of other heart-valve replacement (04/17/23) Subjective Subjective Doing well, no shortness of breath, no significant pain, no focal complaints Objective Data Objective Data Vital Signs: Vital Signs Temp Pulse Resp BP Pulse Ox O2 Del Method O2 Flow Rate 97.9 F 81 18 105/74 93 CPAP 5 04/22/23 03:30 04/22/23 03:30 04/22/23 03:30 04/22/23 03:30 04/22/23 06:50 04/22/23 06:50 04/22/23 06:50 Oxygen Flow Rate (L/min) 5 Oxygen Delivery Method CPAP Weight: 71.2 kg Body Mass Index (BMI) 28.7 Intake & Output: Intake and Output for Last 24 Hours 04/20/23 04/21/23 04/22/23 23:59 23:59 23:59 Intake Total 2464.58 / 2464.58 800 / 1000 500 / 500 Output Total 150 / 150 550 / 550 Balance 2314.58 / 2314.58 250 / 450 500 / 500 Lab / Micro Data 04/21/23 07:06 04/21/23 07:06 Labs: Laboratory Results - last 24 hr 04/21/23 07:06: WBC 9.8, RBC 3.24 L, Hgb 10.2 L, Hct 33.8 L, MCV 104.3 H, MCH 31.5, MCHC 30.2 L, RDW Std Deviation 52.4 H, RDW Coeff of Junior 13.7, Plt Count 204, MPV 10.5, Immature Gran % (Auto) 0.900, Neut % (Auto) 68.2, Lymph % (Auto) 14.6 L, Barnwell % (Auto) 10.7 H, Eos % (Auto) 5.1 H, Baso % (Auto) 0.5, Absolute Neuts (auto) 6.7, Absolute Lymphs (auto) 1.43, Nucleated RBC % 0, Sodium 139, Potassium 3.9, Chloride 100, Carbon Dioxide 38.0 H, Anion Gap 1 L, BUN 13, Creatinine 0.66, Estim Creat Clear Calc 32.53, Est GFR (MDRD) Af Amer 109, Est GFR (MDRD) Non-Af 90, BUN/Creatinine Ratio 19.7, Glucose 107 H, Calcium 9.4 Micro: Microbiology 04/18/23 11:15 Mucosa - Nose Respiratory Panel (PCR) - Final 04/18/23 08:35 Nasal Secretion SARS-CoV-2 & FLU Antigen (Rapid) - Final Physical Exam Narrative General: Alert, oriented, no apparent distress HEENT: Atraumatic, normocephalic Eyes: Anicteric, normal conjunctiva, extraocular movements grossly intact Neck: Supple Respiratory: No rhonchi or wheezes, normal respiratory effort Cardiovascular: Regular rate GI: Soft, nontender, nondistended Extremities: No edema Musculoskeletal: Moving all extremities Neuro: No overt focal neurological deficits Skin: No rashes appreciated Psych: Cooperative Assessment & Plan Assessment/Plan (1) Fracture of left hip: QUALIFIERS: Encounter type: initial encounter Fracture type: closed Qualified Code(s): S72.002A - Fracture of unspecified part of neck of left femur, initial encounter for closed fracture (2) History of aortic valve replacement with bioprosthetic valve: (3) Chronic diastolic (congestive) heart failure: (4) Essential (primary) hypertension: (5) Secondary pulmonary arterial hypertension: (6) Elevated diaphragm: (7) Hypothyroidism: (8) ANDRY (obstructive sleep apnea): PLAN: Plan #Left hip fracture after fall -Fell at house and had left hip pain, patient found to have nondisplaced subcapital fracture of left femoral neck -Pain control, Ortho consult -Plan for surgery -04/19: Surgery this a.m. with Dr. Pinto -04/20: Patient tolerated surgery well, pain control, will need to follow with Ortho, PT/OT -04/21: Awaiting placement, Eliquis 2.5 mg twice daily for 3 weeks, leave dressing in place and removed 04/24 as long as is not leaking through. Will need to follow-up in office in 2 weeks -04/22: Awaiting placement, hopefully early this week #Hypoxia in setting of chronically elevated diaphragm and ANDRY on CPAP with reported bovine AV valve 10 years ago and chronic diastolic heart failure -Patient seen with student nurse at bedside and off BiPAP both hands checked andsats in 70s with good pleth the patient denying shortness of breath or any kind of respiratory distress -Patient continued to insist this was chronic for her however when placed back on BiPAP sats improved to low to mid 90s on both sides with good pleth -We will get chest x-ray, chest x-ray on admission reported no acute process however does appear to have some increased markings especially at the bases -We will check COVID and respiratory panel -Check BNP and limited echo -Incentive spirometry -Daily weights and I's and O's -Follows with Dr. Paul on an outpatient basis -Continue home Lasix at this time while awaiting results -04/19: Patient was 85% on BiPAP overnight with 2 L O2 bleed and improved to 88%on 5 L, this morning was 93-94 nasal cannula, work-up unimpressive for any acutepulmonary etiology -04/20: Had period overnight where she got hypoxic when switched over to CPAP and had oxygen bleed increased however her O2 sats improved and oxygen was subsequently down titrated, will need to follow with her reeling operator upon discharge, no acute etiology and patient with no sustained hypoxia at this time however she was started fluids at 150 an hour per day and she has the chronic diastolic heart failure and usually takes Lasix so we will DC fluids and give her dose of Lasix as this could have contributed -04/21: Has required increased O2 through CPAP overnight since she has been here, suspect this may be chronic, will need follow-up with Dr. Paul, continue NIPPV nightly -04/22: Stable #Hypothyroidism -Continue Synthroid #Hx polio -W/ residually reported left sided weakness -04/20: PT/OT #DVT ppx: Eliquis 2.5 mg twice daily for 3 weeks Sarah Marie MD Time spent in the patient's overall evaluation,decision-making process, review of diagnostic data, adjustment of management, discussion with other providers, nursing nursing and ancillary staff involved in patient's care documentation, 35minutes Charges/Coding Visit Charges Inpatient E&M: 87299 Subs Hosp L2 04/22/23 0950 <Electronically signed by Sarah Marie MD> Cosigner Signature (if applicable): CC: ~ Signed [facility] Work Phone: 1(316) 786-178912-02-2023 Progress note Author Sarah Marie [facility] April 21, 2023 9:11am Note Date/Time April 21, 2023 9 :11am [facility] Medical Records Department [address] [place] [address] Progress Note - Hospitalist 04/21/23 0909 MR#: [id number] Acct: [id number] Name: PILOSYDNEY M Rep #:[id number] : 1935 87 From: Sarah Marie MD PCP: Dr. Ethan Donald MD Status:ADM I N Location: [id number] Reason for Visit Reason for Visit: Diagnoses Other elevated white blood cell count (04/17/23) Hypothyroidism, unspecified (04/17/23) Obstructive sleep apnea (adult) (pediatric) (04/17/23) Essential (primary) hypertension (04/17/23) Secondary pulmonary arterial hypertension (04/17/23) Chronic diastolic (congestive) heart failure (04/17/23) Disorders of diaphragm (04/17/23) Fracture of unspecified part of neck of left femur, initial encounter for closedfracture (04/17/23) Presence of other heart-valve replacement (04/17/23) Subjective Subjective Doing better today, does consistently have to have increased O2 through NIPPV atnight but do not think patient has acute decompensation, suspect this may be chronic in nature, does not feel short of breath Objective Data Objective Data Vital Signs: Vital Signs Temp Pulse Resp BP Pulse Ox O2 Del Method O2 Flow Rate 98.1 F 82 16 91/68 95 Room Air 4 04/21/23 03:20 04/21/23 08:34 04/21/23 03:20 04/21/23 03:20 04/21/23 07:14 04/21/23 07:14 04/20/23 20:36 Oxygen Flow Rate (L/min) 4 Oxygen Delivery Method Room Air Weight: 71.2 kg Body Mass Index (BMI) 28.7 Intake & Output: Intake and Output for Last 24 Hours 04/19/23 04/20/23 04/21/23 23:59 23:59 23:59 Intake Total 1669.75 / 1669.75 2464.58 / 2464.58 Output Total 250 / 400 150 / 150 550 / 550 Balance 1419.75 / 1269.75 2314.58 / 2314.58 -550 / -550 Lab / Micro Data 04/21/23 07:06 04/21/23 07:06 Labs: Laboratory Results - last 24 hr 04/21/23 07:06: WBC 9.8, RBC 3.24 L, Hgb 10.2 L, Hct 33.8 L, MCV 104.3 H, MCH 31.5, MCHC 30.2 L, RDW Std Deviation 52.4 H, RDW Coeff of Junior 13.7, Plt Count 204, MPV 10.5, Immature Gran % (Auto) 0.900, Neut % (Auto) 68.2, Lymph % (Auto) 14.6 L, Barnwell % (Auto) 10.7 H, Eos % (Auto) 5.1 H, Baso % (Auto) 0.5, Absolute Neuts (auto) 6.7, Absolute Lymphs (auto) 1.43, Nucleated RBC % 0, Sodium 139, Potassium 3.9, Chloride 100, Carbon Dioxide 38.0 H, Anion Gap 1 L, BUN 13, Creatinine 0.66, Estim Creat Clear Calc 32.53, Est GFR (MDRD) Af Amer 109, Est GFR (MDRD) Non-Af 90, BUN/Creatinine Ratio 19.7, Glucose 107 H, Calcium 9.4 Micro: Microbiology 04/18/23 11:15 Mucosa - Nose Respiratory Panel (PCR) - Final 04/18/23 08:35 Nasal Secretion SARS-CoV-2 & FLU Antigen (Rapid) - Final Physical Exam Narrative General: Alert, oriented, no apparent distress HEENT: Atraumatic, normocephalic Eyes: Anicteric, normal conjunctiva, extraocular movements grossly intact Neck: Supple Respiratory: No rhonchi or wheezes, normal respiratory effort Cardiovascular: Regular rate GI: Soft, nontender, nondistended Extremities: No edema Musculoskeletal: Moving all extremities Neuro: No overt focal neurological deficits Skin: No rashes appreciated Psych: Cooperative Assessment & Plan Assessment/Plan (1) Fracture of left hip: QUALIFIERS: Encounter type: initial encounter Fracture type: closed Qualified Code(s): S72.002A - Fracture of unspecified part of neck of left femur, initial encounter for closed fracture (2) History of aortic valve replacement with bioprosthetic valve: (3) Chronic diastolic (congestive) heart failure: (4) Essential (primary) hypertension: (5) Secondary pulmonary arterial hypertension: (6) Elevated diaphragm: (7) Hypothyroidism: (8) ANDRY (obstructive sleep apnea): PLAN: Plan #Left hip fracture after fall -Fell at house and had left hip pain, patient found to have nondisplaced subcapital fracture of left femoral neck -Pain control, Ortho consult -Plan for surgery -04/19: Surgery this a.m. with Dr. Pinto -04/20: Patient tolerated surgery well, pain control, will need to follow with Ortho, PT/OT -04/21: Awaiting placement, Eliquis 2.5 mg twice daily for 3 weeks, leave dressing in place and removed 04/24 as long as is not leaking through. Will needto follow-up in office in 2 weeks #Hypoxia in setting of chronically elevated diaphragm and ANDRY on CPAP with reported bovine AV valve 10 years ago and chronic diastolic heart failure -Patient seen with student nurse at bedside and off BiPAP both hands checked andsats in 70s with good pleth the patient denying shortness of breath or any kind of respiratory distress -Patient continued to insist this was chronic for her however when placed back on BiPAP sats improved to low to mid 90s on both sides with good pleth -We will get chest x-ray, chest x-ray on admission reported no acute process however does appear to have some increased markings especially at the bases -We will check COVID and respiratory panel -Check BNP and limited echo -Incentive spirometry -Daily weights and I's and O's -Follows with Dr. Paul on an outpatient basis -Continue home Lasix at this time while awaiting results -04/19: Patient was 85% on BiPAP overnight with 2 L O2 bleed and improved to 88%on 5 L, this morning was 93-94 nasal cannula, work-up unimpressive for any acutepulmonary etiology -04/20: Had period overnight where she got hypoxic when switched over to CPAP and had oxygen bleed increased however her O2 sats improved and oxygen was subsequently down titrated, will need to follow with her reeling operator upon discharge, no acute etiology and patient with no sustained hypoxia at this time however she was started fluids at 150 an hour per day and she has the chronic diastolic heart failure and usually takes Lasix so we will DC fluids and give her dose of Lasix as this could have contributed -04/21: Has required increased O2 through CPAP overnight since she has been here, suspect this may be chronic, will need follow-up with Dr. Paul, continue NIPPV nightly #Hypothyroidism -Continue Synthroid #Hx polio -W/ residually reported left sided weakness -04/20: PT/OT #DVT ppx: Eliquis 2.5 mg twice daily for 3 weeks Sarah Marie MD Time spent in the patient's overall evaluation,decision-making process, review of diagnostic data, adjustment of management, discussion with other providers, nursing nursing and ancillary staff involved in patient's care documentation, 35minutes Charges/Coding Visit Charges Inpatient E&M: 16653 Subs Hosp L2 04/21/23 0911 <Electronically signed by Sarah Marie MD> Cosigner Signature (if applicable): CC: ~ Signed [facility] Work Phone: 1(952) 834-414512-02-2023 Progress note Author Abdirashid Pinto [facility] April 21, 2023 8:20am Note Date/Time April 21, 2023 8 :20am [facility] Medical Records Department [address] [place] [id number] Progress Note - Orthopedic 04/21/23817 MR#: [id number] Acct: [id number] Name: SYDNEY DAIGLE Rep #:[id number] : 1935 87 From: Abdirashid Pinto DO PCP: Dr. Ethan Donald MD Status:ADM I N Location: [facility] [place] [facility] [place] [id number] Subjective Subjective Seen and examined. Patient is doing slightly better pain slightly improved spirits up. No complaints. Objective Data Objective Data Vital Signs: Vital Signs Temp Pulse Resp BP Pulse Ox O2 Del Method O2 Flow Rate 98.1 F 88 16 91/68 95 Room Air 4 04/21/23 03:20 04/21/23 03:20 04/21/23 03:20 04/21/23 03:20 04/21/23 07:14 04/21/23 07:14 04/20/23 20:36 Oxygen Flow Rate (L/min) 4 Oxygen Delivery Method Room Air Weight: 156 lb 15.506 oz Body Mass Index (BMI) 28.7 Intake & Output: Intake and Output for Last 24 Hours 04/19/23 04/20/23 04/21/23 23:59 23:59 23:59 Intake Total 1669.75 / 1669.75 2464.58 / 2464.58 Output Total 250 / 400 150 / 150 550 / 550 Balance 1419.75 / 1269.75 2314.58 / 2314.58 -550 / -550 Lab / Micro Data 04/21/23 07:06 04/20/23 05:34 Labs: Laboratory Results - last 24 hr 04/21/23 07:06: WBC 9.8, RBC 3.24 L, Hgb 10.2 L, Hct 33.8 L, MCV 104.3 H, MCH 31.5, MCHC 30.2 L, RDW Std Deviation 52.4 H, RDW Coeff of Junior 13.7, Plt Count 204, MPV 10.5, Immature Gran % (Auto) 0.900, Neut % (Auto) 68.2, Lymph % (Auto) 14.6 L, Barnwell % (Auto) 10.7 H, Eos % (Auto) 5.1 H, Baso % (Auto) 0.5, Absolute Neuts (auto) 6.7, Absolute Lymphs (auto) 1.43, Nucleated RBC % 0 Micro: Microbiology 04/18/23 11:15 Mucosa - Nose Respiratory Panel (PCR) - Final 04/18/23 08:35 Nasal Secretion SARS-CoV-2 & FLU Antigen (Rapid) - Final Physical Exam Const alert, oriented x3 and no apparent distress General Appearance: cooperative Extremity Extremity Narrative: Left hip dressing clean dry intact compartment soft neurovascular intact EHL tibialis anterior gastrocsoleus intact sensation light touch 1 /4 pedal pulses brisk capillary refill Assessment & Plan Assessment/Plan (1) Left displaced femoral neck fracture: PLAN: Plan Postop day #2 left hip hemiarthroplasty PT OT weightbearing as tolerated with hip precautions DVT prophylaxis Eliquis 2.5 mg twice daily for 3 weeks SCDs TALON hose Should leave dressing undisturbed for 5 days (remove on 04/24/23) as long as notleaking through, at which point dressing should be removed and incision should be cleaned daily with antibacterial soap and warm water and dry dressing replaced daily at that point Follow-up in the office 2 weeks Patient will likely benefit from rehab/tcu if she is here in 2 weeks I am happyto see her on that side of the hospital for her 2-week postop. 04/21/23 0820 <Electronically signed by Abdirashid Pinto DO> Cosigner Signature (if applicable): CC: ~ Signed [facility] Work Phone: 1(199) 854-820812-01-2023 Progress note Author Sarah Marie [facility] April 20, 2023 4:51pm Note Date/Time April 20, 2023 7 :23am [facility] Medical Records Department [address] [place] [address] Progress Note - Hospitalist 04/20/23719 MR#: [id number] Acct: [id number] Name: SYDNEY DAIGLE Rep #:[id number] : 1935 87 From: Sarah Marie MD PCP: Dr. Ethan Donald MD Status:ADM I N Location: [address] Reason for Visit Reason for Visit: Diagnoses Other elevated white blood cell count (04/17/23) Hypothyroidism, unspecified (04/17/23) Obstructive sleep apnea (adult) (pediatric) (04/17/23) Essential (primary) hypertension (04/17/23) Secondary pulmonary arterial hypertension (04/17/23) Chronic diastolic (congestive) heart failure (04/17/23) Disorders of diaphragm (04/17/23) Fracture of unspecified part of neck of left femur, initial encounter for closedfracture (04/17/23) Presence of other heart-valve replacement (04/17/23) Subjective Subjective Having some pain, comes intermittently, overall doing well today, no changes in breathing Objective Data Objective Data Vital Signs: Vital Signs Temp Pulse Resp BP Pulse Ox O2 Del Method O2 Flow Rate 98.4 F 83 18 129/59 H 97 CPAP 3 04/20/23 04:06 04/20/23 04:06 04/20/23 04:06 04/20/23 04:06 04/20/23 04:06 04/20/23 04:06 04/20/23 04:06 Oxygen Flow Rate (L/min) 3 Oxygen Delivery Method CPAP Weight: 68 kg Body Mass Index (BMI) 27.3 Intake & Output: Intake and Output for Last 24 Hours 04/18/23 04/19/23 04/20/23 23:59 23:59 23:59 Intake Total 550 / 550 1669.75 / 1669.75 962.5 / 962.5 Output Total 1100 / 1100 250 / 400 150 / 150 Balance -550 / -550 1419.75 / 1269.75 812.5 / 812.5 Lab / Micro Data 04/20/23 05:34 04/20/23 05:34 Labs: Laboratory Results - last 24 hr 04/20/23 05:34: WBC 9.6, RBC 3.35 L, Hgb 10.4 L, Hct 34.6 L, MCV 103.3 H, MCH 31.0, MCHC 30.1 L, RDW Std Deviation 53.2 H, RDW Coeff of Junior 14.0, Plt Count 205, MPV 10.5, Immature Gran % (Auto) 0.400, Neut % (Auto) 68.6, Lymph % (Auto) 17.2 L, Barnwell % (Auto) 9.7, Eos % (Auto) 3.7, Baso % (Auto) 0.4, Absolute Neuts (auto) 6.6, Absolute Lymphs (auto) 1.65, Nucleated RBC % 0 Micro: Microbiology 04/18/23 11:15 Mucosa - Nose Respiratory Panel (PCR) - Final 04/18/23 08:35 Nasal Secretion SARS-CoV-2 & FLU Antigen (Rapid) - Final Radiography Diagnostic Testing: Radiology Impression Hip X-Ray 04/19/23 11:30 IMPRESSION: Status post left total hip replacement. There is good alignment. Postoperative soft tissue changes. Electronically Signed: Robert Berger MD at 11:54 EST , Physical Exam Narrative General: Alert, oriented, no apparent distress HEENT: Atraumatic, normocephalic Eyes: Anicteric, normal conjunctiva, extraocular movements grossly intact Neck: Supple Respiratory: No rhonchi or wheezes, normal respiratory effort Cardiovascular: Regular rate GI: Soft, nontender, nondistended Extremities: No edema Musculoskeletal: Moving all extremities Neuro: No overt focal neurological deficits Skin: No rashes appreciated Psych: Cooperative Assessment & Plan Assessment/Plan (1) Fracture of left hip: QUALIFIERS: Encounter type: initial encounter Fracture type: closed Qualified Code(s): S72.002A - Fracture of unspecified part of neck of left femur, initial encounter for closed fracture (2) History of aortic valve replacement with bioprosthetic valve: (3) Chronic diastolic (congestive) heart failure: (4) Essential (primary) hypertension: (5) Secondary pulmonary arterial hypertension: (6) Elevated diaphragm: (7) Hypothyroidism: (8) ANDRY (obstructive sleep apnea): PLAN: Plan #Left hip fracture after fall -Fell at house and had left hip pain, patient found to have nondisplaced subcapital fracture of left femoral neck -Pain control, Ortho consult -Plan for surgery -04/19: Surgery this a.m. with Dr. Pinto -04/20: Patient tolerated surgery well, pain control, will need to follow with Ortho, PT/OT #Hypoxia in setting of chronically elevated diaphragm and ANDRY on CPAP with reported bovine AV valve 10 years ago and chronic diastolic heart failure -Patient seen with student nurse at bedside and off BiPAP both hands checked andsats in 70s with good pleth the patient denying shortness of breath or any kind of respiratory distress -Patient continued to insist this was chronic for her however when placed back on BiPAP sats improved to low to mid 90s on both sides with good pleth -We will get chest x-ray, chest x-ray on admission reported no acute process however does appear to have some increased markings especially at the bases -We will check COVID and respiratory panel -Check BNP and limited echo -Incentive spirometry -Daily weights and I's and O's -Follows with Dr. Paul on an outpatient basis -Continue home Lasix at this time while awaiting results -04/19: Patient was 85% on BiPAP overnight with 2 L O2 bleed and improved to 88%on 5 L, this morning was 93-94 nasal cannula, work-up unimpressive for any acutepulmonary etiology -04/20: Had period overnight where she got hypoxic when switched over to CPAP and had oxygen bleed increased however her O2 sats improved and oxygen was subsequently down titrated, will need to follow with her reeling operator upon discharge, no acute etiology and patient with no sustained hypoxia at this time however she was started fluids at 150 an hour per day and she has the chronic diastolic heart failure and usually takes Lasix so we will DC fluids and give her dose of Lasix as this could have contributed #Hypothyroidism -Continue Synthroid #Hx polio -W/ residually reported left sided weakness -04/20: PT/OT #DVT ppx: Eliquis 2.5 mg twice daily for 3 weeks Sarah Marie MD Time spent in the patient's overall evaluation,decision-making process, review of diagnostic data, adjustment of management, discussion with other providers, nursing nursing and ancillary staff involved in patient's care documentation, 35minutes Charges/Coding Visit Charges Inpatient E&M: 32452 Subs Hosp L2 04/20/23 1651 <Electronically signed by Sarah Marie MD> Cosigner Signature (if applicable): CC: ~ Signed [facility] Work Phone: 1(436) 157-507212-01-2023 Progress note Author Abdirashid Pinto [facility] April 20, 2023 1:17pm Note Date/Time April 20, 2023 1 :17pm [facility] Medical Records Department [address] [facility] [place] [address] Progress Note - Orthopedic 04/20/23 1314 MR#: [id number] Acct: [id number] Name: SYDNEY DAIGLE Rep #:[id number] : 1935 87 From: Abdirashid Pinto DO PCP: Dr. Ethan Donald MD Status:ADM I N Location: DE3 IG207-6 Subjective Subjective Seen and examined. Doing okay complain of pain left hip particularly when weightbearing denies fevers chills nausea vomiting shortness of breath or chest pain she is eating without difficulty. Objective Data Objective Data Vital Signs: Vital Signs Temp Pulse Resp BP Pulse Ox O2 Del Method O2 Flow Rate 98 F 96 18 107/54 L 92 Room Air 2 04/20/23 12:15 04/20/23 12:17 04/20/23 12:15 04/20/23 12:17 04/20/23 12:31 04/20/23 12:15 04/20/23 12:31 Oxygen Flow Rate (L/min) 2 Oxygen Delivery Method Room Air Weight: 149 lb 14.629 oz Body Mass Index (BMI) 27.3 Intake & Output: Intake and Output for Last 24 Hours 04/18/23 04/19/23 04/20/23 23:59 23:59 23:59 Intake Total 550 / 550 1669.75 / 1669.75 2114.58 / 2114.58 Output Total 1100 / 1100 250 / 400 150 / 150 Balance -550 / -550 1419.75 / 1269.75 1964.58 / 1964.58 Lab / Micro Data 04/20/23 05:34 04/20/23 05:34 Labs: Laboratory Results - last 24 hr 04/20/23 05:34: WBC 9.6, RBC 3.35 L, Hgb 10.4 L, Hct 34.6 L, MCV 103.3 H, MCH 31.0, MCHC 30.1 L, RDW Std Deviation 53.2 H, RDW Coeff of Junior 14.0, Plt Count 205, MPV 10.5, Immature Gran % (Auto) 0.400, Neut % (Auto) 68.6, Lymph % (Auto) 17.2 L, Barnwell % (Auto) 9.7, Eos % (Auto) 3.7, Baso % (Auto) 0.4, Absolute Neuts (auto) 6.6, Absolute Lymphs (auto) 1.65, Nucleated RBC % 0, Sodium 138, Potassium 4.1, Chloride 103, Carbon Dioxide 30.0, Anion Gap 5, BUN 16, Creatinine 0.80, Estim Creat Clear Calc 40.66, Est GFR (MDRD) Af Amer 87, Est GFR (MDRD) Non-Af 72, BUN/Creatinine Ratio 19.9, Glucose 131 H, Calcium 8.3 L Micro: Microbiology 04/18/23 11:15 Mucosa - Nose Respiratory Panel (PCR) - Final 04/18/23 08:35 Nasal Secretion SARS-CoV-2 & FLU Antigen (Rapid) - Final Physical Exam Const alert, oriented x3 and no apparent distress General Appearance: cooperative Extremity Extremity Narrative: Left hip dressing clean dry intact compartment soft neurovascular intact EHL tibialis anterior gastrocsoleus intact sensation light touch 1 /4 pedal pulses brisk capillary refill Assessment & Plan Assessment/Plan (1) Left displaced femoral neck fracture: PLAN: Plan Postop day #1 left hip hemiarthroplasty PT OT weightbearing as tolerated with hip precautions DVT prophylaxis Eliquis 2.5 mg twice daily for 3 weeks SCDs TALON hose Should leave dressing undisturbed for 5 days as long as not leaking through, at which point dressing should be removed and incision should be cleaned daily withantibacterial soap and warm water and dry dressing replaced daily at that point Follow-up in the office 2 weeks Patient will likely benefit from rehab/tcu if she is here in 2 weeks I am happyto see her on that side of the hospital for her 2-week postop. 04/20/23 1317 <Electronically signed by Abdirashid Pinto DO> Cosigner Signature (if applicable): CC: ~ Signed [facility] Work Phone: 1(254) 314-775811-30-2023 Progress note Author Sarah Marie [facility] April 19, 2023 2:54pm Note Date/Time April 19, 2023 8:42am [facility] Medical Records Department [address] [place] [address] Progress Note - Hospitalist 04/19/23 0839 MR#: [id number] Acct: [id number] Name: SYDNEY DAIGLE Rep #:[id number] : 1935 87 From: Sarah Marie MD PCP: Dr. Ethan Donald MD Status:ADM I N Location: [place] [address] Reason for Visit Reason for Visit: Diagnoses Other elevated white blood cell count (04/17/23) Hypothyroidism, unspecified (04/17/23) Obstructive sleep apnea (adult) (pediatric) (04/17/23) Essential (primary) hypertension (04/17/23) Secondary pulmonary arterial hypertension (04/17/23) Chronic diastolic (congestive) heart failure (04/17/23) Disorders of diaphragm (04/17/23) Fracture of unspecified part of neck of left femur, initial encounter for closedfracture (04/17/23) Presence of other heart-valve replacement (04/17/23) Subjective Subjective Patient postop, doing well and he feels pain is beginning to get better Objective Data Objective Data Vital Signs: Vital Signs Temp Pulse Resp BP Pulse Ox O2 Del Method O2 Flow Rate 98.9 F 70 18 116/47 L 94 Nasal Cannula 3 04/19/23 04:43 04/19/23 04:43 04/19/23 04:43 04/19/23 04:43 04/19/23 07:47 04/19/23 07:47 04/19/23 07:47 Oxygen Flow Rate (L/min) 3 Oxygen Delivery Method Nasal Cannula Weight: 68 kg Body Mass Index (BMI) 27.3 Intake & Output: Intake and Output for Last 24 Hours 04/17/23 04/18/23 04/19/23 23:59 23:59 23:59 Intake Total 550 / 550 120 / 120 Output Total 1100 / 1100 150 / 150 Balance -550 / -550 -30 / 30 Lab / Micro Data 04/19/23 04:00 04/19/23 04:00 Labs: Laboratory Results - last 24 hr 04/18/23 06:48: Sodium 140, Potassium 4.4, Chloride 104, Carbon Dioxide 31.0, Anion Gap 5, BUN 22 H, Creatinine 0.99, Estim Creat Clear Calc 32.86, Est GFR (MDRD) Af Amer 68, Est GFR (MDRD) Non-Af 57 L, BUN/Creatinine Ratio 22.2 H, Glucose 118 H, Calcium 8.8, B-Natriuretic Peptide 219.7 H, Vitamin D 25-Hydroxy 74.0, TSH 1.46 04/18/23 12:24: Blood Type O POSITIVE, Antibody Screen NEGATIVE 04/19/23 04:00: WBC 10.8, RBC 3.59 L, Hgb 11.3 L, Hct 36.6 L, MCV 101.9 H, MCH 31.5, MCHC 30.9 L, RDW Std Deviation 53.0 H, RDW Coeff of Junior 14.0, Plt Count 194, MPV 9.7, Immature Gran % (Auto) 0.600, Neut % (Auto) 75.2 H, Lymph % (Auto)11.0 L, Barnwell % (Auto) 6.6, Eos % (Auto) 6.0 H, Baso % (Auto) 0.6, Absolute Neuts(auto) 8.1 H, Absolute Lymphs (auto) 1.19, Nucleated RBC % 0, Sodium 139, Potassium 4.4, Chloride 102, Carbon Dioxide 33.0 H, Anion Gap 4 L, BUN 20 H, Creatinine 0.92, Estim Creat Clear Calc 35.36, Est GFR (MDRD) Af Amer 74, Est GFR (MDRD) Non-Af 61, BUN/Creatinine Ratio 21.7 H, Glucose 123 H, Calcium 8.6 Micro: Microbiology 04/18/23 11:15 Mucosa - Nose Respiratory Panel (PCR) - Final 04/18/23 08:35 Nasal Secretion SARS-CoV-2 & FLU Antigen (Rapid) - Final Radiography Diagnostic Testing: Radiology Impression Echocardiogram 04/18/23 08:36 Interpretation Summary Normal LV size. Left ventricular systolic function is normal. The estimated ejection fraction is 55 %. Contrast injection was performed. Ordering Physician: Sarah Marie Referring Physician: ETHAN DONADL Performed By: Neida Ruiz RCS Chest X-Ray 04/18/23 08:40 IMPRESSION: No acute cardiopulmonary abnormality. No interval change. Electronically Signed: Sohail Salgado MD at 9:02 EST Reading Location ID and State: [address] [place] [address] Tel , Service support , Physical Exam Narrative General: Alert, oriented, no apparent distress HEENT: Atraumatic, normocephalic Eyes: Anicteric, normal conjunctiva, extraocular movements grossly intact Neck: Supple Respiratory: No rhonchi or wheezes, normal respiratory effort Cardiovascular: Regular rate GI: Soft, nontender, nondistended Extremities: No edema Musculoskeletal: Moving all extremities Neuro: No overt focal neurological deficits Skin: No rashes appreciated Psych: Cooperative Assessment & Plan Assessment/Plan (1) Fracture of left hip: QUALIFIERS: Encounter type: initial encounter Fracture type: closed Qualified Code(s): S72.002A - Fracture of unspecified part of neck of leftfemur, initial encounter for closed fracture (2) History of aortic valve replacement with bioprosthetic valve: (3) Chronic diastolic (congestive) heart failure: (4) Essential (primary) hypertension: (5) Secondary pulmonary arterial hypertension: (6) Elevated diaphragm: (7) Hypothyroidism: (8) ANDRY (obstructive sleep apnea): PLAN: Plan #Left hip fracture after fall -Fell at house and had left hip pain, patient found to have nondisplaced subcapital fracture of left femoral neck -Pain control, Ortho consult -Plan for surgery -04/19: Surgery this a.m. with Dr. Pinto #Hypoxia in setting of chronically elevated diaphragm and ANDRY on CPAP with reported bovine AV valve 10 years ago and chronic diastolic heart failure -Patient seen with student nurse at bedside and off BiPAP both hands checked andsats in 70s with good pleth the patient denying shortness of breath or any kind of respiratory distress -Patient continued to insist this was chronic for her however when placed back on BiPAP sats improved to low to mid 90s on both sides with good pleth -We will get chest x-ray, chest x-ray on admission reported no acute process however does appear to have some increased markings especially at the bases -We will check COVID and respiratory panel -Check BNP and limited echo -Incentive spirometry -Daily weights and I's and O's -Follows with Dr. Paul on an outpatient basis -Continue home Lasix at this time while awaiting results -04/19: Patient was 85% on BiPAP overnight with 2 L O2 bleed and improved to 88%on 5 L, this morning was 93-94 nasal cannula, work-up unimpressive for any acutepulmonary etiology #Hypothyroidism -Continue Synthroid #Hx polio -W/ residually reported left sided weakness #DVT ppx: SCDs Sarah Marie MD Time spent in the patient's overall evaluation,decision-making process, review of diagnostic data, adjustment of management, discussion with other providers, nursing nursing and ancillary staff involved in patient's care documentation, 35minutes Charges/Coding Visit Charges Inpatient E&M: 94141 Subs Hosp L2 04/19/23 1454 <Electronically signed by Sarah Marie MD> Cosigner Signature (if applicable): CC: ~ Signed [facility] Work Phone: 1(474) 394-159911-30-2023 Procedure [facility] 04-18-2023 Consult note Author Abdirashid Pinto [facility] April 18, 2023 11:35am Note Date/Time April 18, 2023 11:35am [facility] Medical Records Department [address] [place] [address] Consultation 04/18/23 1132 MR#: [id number] Acct: [id number] Name: PILOSYDNEY Rep #:[id number] : 1935 87 From: Abdirashid Pinto DO PCP: Dr. Ethan Donald MD Status:ADM I N Location: MS3 IB516-9 Assessment & Plan Assessment/Plan (1) Left displaced femoral neck fracture: PLAN: Plan Discussed with patient and her family who was present options for percutaneous screw fixation versus hemiarthroplasty left hip considering her age and bone quality and inability to be done or partial weightbearing on the left side from her history of polio and left-sided weakness patient opted to proceed with left hip hemiarthroplasty. Risk benefits and alternatives reviewed including risk ofbleeding infection nerve artery tissue damage need for further surgery continuedpain postoperative restrictions and dislocation. Plan to proceed to the OR 04/19/2023 n.p.o. after midnight antibiotics on-call. HPI Consult Data Date of Consult: 04/18/23 HPI Narrative HPI Narrative: SYDNEY DAIGLE, is a 87 F who presents after ground-level fall onto her left side immediately having pain in her hip, she was able to walk initially however her pain got worse in her upper outer groin. She denies any pain in her knee or ankle at this time of note she does have a history of polio with left-sided weakness. [facility] Medical History (Updated 04/18/23 @ 11:[address] Abdirashid Pinto DO) Anemia Chronic diastolic (congestive) heart failure Closed fracture dislocation of left ankle joint Closed left ankle fracture Debility Decubitus ulcer of ankle, stage 2 Diaphragmatic paralysis Edema Essential (primary) hypertension Hypokalemia Hypothyroidism Hypothyroidism Non-rheumatic aortic stenosis Normochromic normocytic anemia Obesity Obstructive sleep apnea ANDRY (obstructive sleep apnea) Physical debility Polio Prosthetic aortic valve stenosis Secondary pulmonary arterial hypertension Ventricular ectopy Vertigo Vertigo Home Medications calcium carbonate 600 mg-vitamin D3 20 mcg (800 unit) tablet 1 tab PO DAILY supplement 06/30/19 [History Last Taken 07/25/19 08:19] cholecalciferol (vitamin D3) 25 mcg (1,000 unit) tablet 1,000 unit PO DAILY supplement 06/30/19 [History Last Taken 07/25/19 08:22] multivitamin with minerals 1 tab PO DAILY supplement 06/30/19 [History Last Taken 07/25/19 08:19] potassium chloride 10 mEq tablet,extended release(part/cryst) 10 meq PO BIDCM 04/03/20 [Rx Last Taken Unknown] meclizine 25 mg tablet 25 mg PO TID PRN PRN dizziness #21 tabs 12/04/21 [Rx Last Taken Unknown] furosemide 40 mg tablet 40 mg PO DAILY #90 tabs 05/23/22 [Rx Last Taken Unknown] levothyroxine 75 mcg tablet 75 mcg PO DAILY #90 tabs 05/23/22 [Rx Last Taken Unknown] metoprolol succinate 25 mg tablet,extended release 24 hr 25 mg PO DAILY #90 tabs08/28/22 [Rx Last Taken Unknown] Allergy/AdvReac Type Severity Reaction Status Date / Time aspirin Allergy made my Verified 04/17/23 17:29 blood too thin hydrocodone [From Vicodin] Allergy feels Verified 04/17/23 17:29 like getting high niacin AdvReac severe Verified 04/17/23 17:29 sweating simvastatin AdvReac muscle Verified 04/17/23 17:29 aches Family History Father Dementia Mother Liver cirrhosis Sister Aortic valve disease Brother Dementia Surgical History H/O breast biopsy H/O colonoscopy History of aortic valve replacement with bioprosthetic valve (05/06/12) History of aortic valve replacement with bioprosthetic valve History of open reduction and internal fixation (ORIF) procedure (07/09/19) History of parathyroidectomy History of partial mastectomy of left breast History of right and left heart catheterization (09/01/11) History of tonsillectomy and adenoidectomy Hx of cholecystectomy Social History household members: none Smoking Status: Never smoker alcohol intake: current alcohol intake frequency: holidays/special occasions only substance use type: does not use caffeine: Yes Type: coffee Number of servings: 1 Physical Exam Const alert, oriented x3 and no apparent distress General Appearance: cooperative Extremity Extremity Narrative: Left hip there is no open wounds or ecchymosis she does have a positive logroll she is nontender in her knee or her ankle of note she did have prior ankle surgery and is a prominent screw lateral fibula although it is not coming through the skin and there is no sign of infection. She is able to plantarflex and dorsiflex her ankle she has intact sensation light touch in the left lower extremity. Lab / Micro Data 04/18/23 06:48 04/18/23 06:48 Labs: Laboratory Results - last 24 hr 04/17/23 19:10: WBC 15.2 H, RBC 4.38, Hgb 13.7, Hct 44.2, MCV 100.9 H, MCH 31.3,MCHC 31.0 L, RDW Std Deviation 51.9 H, RDW Coeff of Junior 14.0, Plt Count 264, MPV10.1, Immature Gran % (Auto) 0.600, Neut % (Auto) 86.0 H, Lymph % (Auto) 8.6 L, Barnwell % (Auto) 3.9, Eos % (Auto) 0.4, Baso % (Auto) 0.5, Absolute Neuts (auto) 13.1 H, Absolute Lymphs (auto) 1.31, Nucleated RBC % 0, Sodium 141, Potassium 3.9, Chloride 104, Carbon Dioxide 32.0, Anion Gap 5, BUN 18, Creatinine 0.80, Estim Creat Clear Calc 46.26, Est GFR (MDRD) Af Amer 88, Est GFR (MDRD) Non-Af 72, BUN/Creatinine Ratio 22.5 H, Glucose 131 H, Calcium 9.5, Total Bilirubin 0.50, AST 42 H, ALT 29, Alkaline Phosphatase 97, Total Protein 7.7, Albumin 3.6,Globulin 4.1, Albumin/Globulin Ratio 0.9 04/17/23 19:45: POC Glucose 155 H 04/17/23 20:28: Urine Color Yellow, Urine Clarity Clear, Urine pH 6.0, Ur Specific [place] 1.025, Urine Protein 30 H, Urine Glucose (UA) Normal, Urine Ketones 50 H, Urine Occult Blood Negative, Urine Nitrite Negative, Urine BilirubinNegative, Urine Urobilinogen Normal, Ur Leukocyte Esterase 25 H, Urine RBC 0 SEEN, Urine WBC 0 SEEN, Ur Squamous Epith Cells 0 SEEN, Urine Bacteria 0 SEEN, Urine Mucus 0 SEEN 04/18/23 06:48: WBC 10.8, RBC 3.86 L, Hgb 12.1, Hct 40.2, MCV 104.1 H, MCH 31.3,MCHC 30.1 L, RDW Std Deviation 54.6 H, RDW Coeff of Junior 14.3, Plt Count 239, MPV10.3, Immature Gran % (Auto) 0.600, Neut % (Auto) 80.3 H, Lymph % (Auto) 9.9 L, Barn[place] % (Auto) 5.6, Eos % (Auto) 3.0, Baso % (Auto) 0.6, Absolute Neuts (auto) 8.7 H, Absolute Lymphs (auto) 1.07, Nucleated RBC % 0, Sodium 140, Potassium 4.4, Chloride 104, Carbon Dioxide 31.0, Anion Gap 5, BUN 22 H, Creatinine 0.99, Estim Creat Clear Calc 32.86, Est GFR (MDRD) Af Amer 68, Est GFR (MDRD) Non-Af 57 L, BUN/Creatinine Ratio 22.2 H, Glucose 118 H, Calcium 8.8, B-Natriuretic Peptide 219.7 H, Vitamin D 25-Hydroxy 74.0, TSH 1.46 Micro: Microbiology 04/18/23 08:35 Nasal Secretion SARS-CoV-2 & FLU Antigen (Rapid) - Final Imagaing Radiology Impression Femur X-Ray 04/17/23 17:50 IMPRESSION: Subcapital fracture of the left femoral neck. Electronically Signed: Xiomara Cain MD at 18:29 EST Reading Location ID and State: Taisha Augustine MD Tel , Service support , Pelvis X-Ray 04/17/23 18:45 IMPRESSION: Findings suspicious for nondisplaced subcapital fracture of the left femoral neck. This is better demonstrated on the x-ray femur. Electronically Signed: Xiomara Cain MD at 20:37 EST Reading Location ID and State: Taisha Augustine MD Tel , Service support , Chest X-Ray 04/17/23 19:25 IMPRESSION: No radiographic evidence of acute cardiopulmonary disease. Electronically Signed: Xiomara Cain MD at 20:40 EST Reading Location ID and State: Taisha Augustine MD Tel , Service support , Chest X-Ray 04/18/23 08:40 IMPRESSION: No acute cardiopulmonary abnormality. No interval change. Electronically Signed: Sohail Salgado MD at 9:02 EST , 04/18/23 1135 <Electronically signed by Abdirashid Pinto DO> Cosigner Signature (if applicable): CC: Dr. Koby Ochoa DO; Dr. Abdirashid Pinto DO; Dr. Ethan Donald MD~ Signed [facility] Work Phone: [phone]) 239-713911-29-2023 Progress note Author Sarah Marie [facility] April 18, 2023 8:45am Note Date/Time April 18, 2023 8:46am [facility] Medical Records Department [address] [place] [id number] Progress Note - Hospitalist 04/18/23 0834 MR#: [id number] Acct: [id number] Name: SYDNEY DAIGLE Rep #:[id number] : 1935 87 From: Sarah Marie MD PCP: Dr. Ethan Donald MD Status:ADM I N Location: [place] [address] Reason for Visit Reason for Visit: Diagnoses Other elevated white blood cell count (04/17/23) Fracture of unspecified part of neck of left femur, initial encounter for closedfracture (04/17/23) Subjective Subjective Patient seen at bedside, just had her BiPAP taken off and O2 sats in the 70s with good pleth but patient in no respiratory distress, not tachypneic, does notfeel short of breath. Repeated multiple times that this was normal for her but when placed back on BiPAP sats came up into the mid 90s, other than pain in left hip she continued to deny any respiratory or cardiac complaints Objective Data Objective Data Vital Signs: Vital Signs Temp Pulse Resp BP Pulse Ox O2 Del Method O2 Flow Rate 98.7 F 73 20 H 94/49 L 93 Bi-pap 2 04/18/23 05:15 04/18/23 05:15 04/18/23 05:15 04/18/23 05:15 04/18/23 05:15 04/18/23 05:15 04/18/23 05:15 Oxygen Flow Rate (L/min) 2 Oxygen Delivery Method Bi-pap Weight: 68 kg Body Mass Index (BMI) 27.3 Intake & Output: Intake and Output for Last 24 Hours 04/16/23 04/17/23 04/18/23 23:59 23:59 23:59 Intake Total 300 / 300 Balance 300 / 300 Lab / Micro Data 04/18/23 06:48 04/17/23 19:10 Labs: Laboratory Results - last 24 hr 04/17/23 19:10: WBC 15.2 H, RBC 4.38, Hgb 13.7, Hct 44.2, MCV 100.9 H, MCH 31.3,MCHC 31.0 L, RDW Std Deviation 51.9 H, RDW Coeff of Junior 14.0, Plt Count 264, MPV10.1, Immature Gran % (Auto) 0.600, Neut % (Auto) 86.0 H, Lymph % (Auto) 8.6 L, Barnwell % (Auto) 3.9, Eos % (Auto) 0.4, Baso % (Auto) 0.5, Absolute Neuts (auto) 13.1 H, Absolute Lymphs (auto) 1.31, Nucleated RBC % 0, Sodium 141, Potassium 3.9, Chloride 104, Carbon Dioxide 32.0, Anion Gap 5, BUN 18, Creatinine 0.80, Estim Creat Clear Calc 46.26, Est GFR (MDRD) Af Amer 88, Est GFR (MDRD) Non-Af 72, BUN/Creatinine Ratio 22.5 H, Glucose 131 H, Calcium 9.5, Total Bilirubin 0.50, AST 42 H, ALT 29, Alkaline Phosphatase 97, Total Protein 7.7, Albumin 3.6,Globulin 4.1, Albumin/Globulin Ratio 0.9 04/17/23 19:45: POC Glucose 155 H 04/17/23 20:28: Urine Color Yellow, Urine Clarity Clear, Urine pH 6.0, Ur Specific [place] 1.025, Urine Protein 30 H, Urine Glucose (UA) Normal, Urine Ketones 50 H, Urine Occult Blood Negative, Urine Nitrite Negative, Urine Bilirubin Negative, Urine Urobilinogen Normal, Ur Leukocyte Esterase 25 H, UrineRBC 0 SEEN, Urine WBC 0 SEEN, Ur Squamous Epith Cells 0 SEEN, Urine Bacteria 0 SEEN, Urine Mucus 0 SEEN 04/18/23 06:48: WBC 10.8, RBC 3.86 L, Hgb 12.1, Hct 40.2, MCV 104.1 H, MCH 31.3,MCHC 30.1 L, RDW Std Deviation 54.6 H, RDW Coeff of Junior 14.3, Plt Count 239, MPV10.3, Immature Gran % (Auto) 0.600, Neut % (Auto) 80.3 H, Lymph % (Auto) 9.9 L, [place] % (Auto) 5.6, Eos % (Auto) 3.0, Baso % (Auto) 0.6, Absolute Neuts (auto) 8.7 H, Absolute Lymphs (auto) 1.07, Nucleated RBC % 0 Radiography Diagnostic Testing: Radiology Impression Femur X-Ray 04/17/23 17:50 IMPRESSION: Subcapital fracture of the left femoral neck. Electronically Signed: Xiomara Cain MD at 18:29 EST Reading Location ID and State: Taisha Augustine MD Tel , Service support , Pelvis X-Ray 04/17/23 18:45 IMPRESSION: Findings suspicious for nondisplaced subcapital fracture of the left femoral neck. This is better demonstrated on the x-ray femur. Electronically Signed: Xiomara Cain MD at 20:37 EST Reading Location ID and State: Tasiha Augustine MD Tel , Service support , Chest X-Ray 04/17/23 19:25 IMPRESSION: No radiographic evidence of acute cardiopulmonary disease. Electronically Signed: Xiomara Cain MD at 20:40 EST Reading Location ID and State: Taisha Augustine MD Tel , Service support , Physical Exam Narrative General: Alert, oriented, no apparent distress HEENT: Atraumatic, normocephalic Eyes: Anicteric, normal conjunctiva, extraocular movements grossly intact Neck: Supple Respiratory: Some crackles at the bases, normal respiratory effort Cardiovascular: Regular rate GI: Soft, nontender, nondistended Extremities: No edema Musculoskeletal: Moving all extremities without pain on moving left Neuro: No overt focal neurological deficits Skin: No rashes appreciated Psych: Cooperative Assessment & Plan Assessment/Plan (1) Fracture of left hip: QUALIFIERS: Encounter type: initial encounter Fracture type: closed Qualified Code(s): S72.002A - Fracture of unspecified part of neck of left femur, initial encounter for closed fracture (2) History of aortic valve replacement with bioprosthetic valve: (3) Chronic diastolic (congestive) heart failure: (4) Essential (primary) hypertension: (5) Secondary pulmonary arterial hypertension: (6) Elevated diaphragm: (7) Hypothyroidism: (8) ANDRY (obstructive sleep apnea): PLAN: Plan #Left hip fracture after fall -Fell at house and had left hip pain, patient found to have nondisplaced subcapital fracture of left femoral neck -Pain control, Ortho consult -Plan for surgery #Hypoxia in setting of chronically elevated diaphragm and ANDRY on CPAP with reported bovine AV valve 10 years ago and chronic diastolic heart failure -Patient seen with student nurse at bedside and off BiPAP both hands checked andsats in 70s with good pleth the patient denying shortness of breath or any kind of respiratory distress -Patient continued to insist this was chronic for her however when placed back on BiPAP sats improved to low to mid 90s on both sides with good pleth -We will get chest x-ray, chest x-ray on admission reported no acute process however does appear to have some increased markings especially at the bases -We will check COVID and respiratory panel -Check BNP and limited echo -Incentive spirometry -Daily weights and I's and O's -Follows with Dr. Paul on an outpatient basis -Continue home Lasix at this time while awaiting results #Hypothyroidism -Continue Synthroid #Hx polio -W/ residually reported left sided weakness #DVT ppx: SCDs Sarah Marie MD Time spent in the patient's overall evaluation,decision-making process, review of diagnostic data, adjustment of management, discussion with other providers, nursing nursing and ancillary staff involved in patient's care documentation, 35minutes Charges/Coding Visit Charges Inpatient E&M: 39488 Subs Hosp L2 04/18/23 0845 <Electronically signed by Sarah Marie MD> Cosigner Signature (if applicable): CC: ~ Signed [facility] Work Phone: 1(473) 187-851011-28-2023 History and physical note Author Koby Ochoa [facility] April 17, 2023 9:43pm Note Date/Time April 17, 2023 9:42pm [facility] Medical Records Department [address] [place] [address] H&P Exam - Hospitalist 04/17/232132 MR#: [id number] Acct: [id number] Name: SYDNEY DAIGLE Rep #:[id number] : 1935 87 From: Koby Ochoa DO PCP: Dr. Ethan Donald MD Status:ADM I N Location: [facility] [place] [id number] HPI - General General Date of Admission: 04/17/23 Date of Service: 04/17/23 Chief Complaint: Fall. Left hip pain. HPI Narrative SYDNEY DAIGLE, is a 87 F who presents after a fall. 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 She thinksthat she may have tripped over something and landed on her buttocks. She was able to get herself up but did have left hip pain. She was able to walk to her car and drive to her home and get into her home. She reached out to her sister who came and saw her and had the patient sent to the emergency room. Patient was found to have a nondisplaced subcapital fracture of the left femoral neck. The emergency room physician reached out to Dr. Chaudhry, of orthopedics, who stated that he would be willing to see the patient and would plan on doing surgery on . 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 Ventricular ectopy Vertigo Vertigo Home Medications calcium carbonate 600 mg-vitamin D3 20 mcg (800 unit) tablet 1 tab PO DAILY supplement 06/30/19 [History Last Taken 07/25/19 08:19] cholecalciferol (vitamin D3) 25 mcg (1,000 unit) tablet 1,000 unit PO DAILY supplement 06/30/19 [History Last Taken 07/25/19 08:22] multivitamin with minerals 1 tab PO DAILY supplement 06/30/19 [History Last Taken 07/25/19 08:19] potassium chloride 10 mEq tablet,extended release(part/cryst) 10 meq PO BIDCM 08/22/19 [Rx Last Taken Unknown] meclizine 25 mg tablet 25 mg PO TID PRN PRN dizziness #21 tabs 12/04/21 [Rx Last Taken Unknown] furosemide 40 mg tablet 40 mg PO DAILY #90 tabs 05/23/22 [Rx Last Taken Unknown] levothyroxine 75 mcg tablet 75 mcg PO DAILY #90 tabs 05/23/22 [Rx Last Taken Unknown] metoprolol succinate 25 mg tablet,extended release 24 hr 25 mg PO DAILY #90 tabs08/28/22 [Rx Last Taken Unknown] Allergy/AdvReac Type Severity Reaction Status Date / Time aspirin Allergy made my Verified 04/17/23 17:29 blood too thin hydrocodone [From Vicodin] Allergy feels Verified 04/17/23 17:29 like getting high niacin AdvReac severe Verified 04/17/23 17:29 sweating simvastatin AdvReac muscle Verified 04/17/23 17:29 aches Family History Father Dementia Mother Liver cirrhosis Sister Aortic valve disease Brother Dementia Surgical History H/O breast biopsy H/O colonoscopy History of aortic valve replacement with bioprosthetic valve (05/06/12) History of aortic valve replacement with bioprosthetic valve History of open reduction and internal fixation (ORIF) procedure (07/09/19) History of parathyroidectomy History of partial mastectomy of left breast History of right and left heart catheterization (09/01/11) History of tonsillectomy and adenoidectomy Hx of cholecystectomy Social History household members: none Smoking Status: Never smoker alcohol intake: current alcohol intake frequency: holidays/special occasions only substance use type: does not use caffeine: Yes Type: coffee Number of servings: 1 ROS ROS Narrative Chronically short of breath but patient is independent on her own. Patient [place] to [employer] [facility] per [facility]. All review of systems were negative except as mentioned above in the history of present illness and the other review of systems. Vital Signs Vital Signs Vital Signs: 04/17/23 17:29 04/17/23 18:26 04/17/23 20:32 Temperature 36.3 C L Temperature Source Temporal Pulse Rate 90 102 H Respiratory Rate 17 21 H Respiratory Effort Normal Blood Pressure 119/81 H 102/87 H Blood Pressure Mean 93 92 Pulse Ox 96 94 Oxygen Delivery Method Room Air Room Air Nasal Cannula Weight Weight: 70.3 kg Body Mass Index (BMI) 25.7 Physical Exam Narrative - Physical Exam General: Alert, Oriented x3, Cooperative HEENT: Atraumatic, PERRLA, EOMI, Normocephalic Oral: Moist Mucosa, No Gingival or Mucosal Lesions/ Ulcerations Neck: Supple, No JVD, Negative Carotid Bruits Lungs: Clear to auscultation, Normal air movement Cardiovascular: Regular rate, 2 out of 6 systolic ejection murmur at the right upper sternal border. Abdomen: Bowel Sounds Present, Soft, Non Tender, Non-Distended, No Hepato-splenomegaly Extremities: No clubbing, No cyanosis, No edema, Capillary Refill Less than 3 Seconds Skin: No rashes, No breakdown Musculoskeletal: No Tenderness to Palpation of Joints or Extremities Neurological: Neuro grossly intact Psych/Mental Status: Normal Affect, Appropriate Results Lab / Micro Data Attestation: I reviewed the patient's lab results. 04/17/23 19:10 04/17/23 19:10 Labs: Laboratory Results - last 24 hr 04/17/23 19:10: WBC 15.2 H, RBC 4.38, Hgb 13.7, Hct 44.2, MCV 100.9 H, MCH 31.3,MCHC 31.0 L, RDW Std Deviation 51.9 H, RDW Coeff of Junior 14.0, Plt Count 264, MPV10.1, Immature Gran % (Auto) 0.600, Neut % (Auto) 86.0 H, Lymph % (Auto) 8.6 L, [place] % (Auto) 3.9, Eos % (Auto) 0.4, Baso % (Auto) 0.5, Absolute Neuts (auto) 13.1 H, Absolute Lymphs (auto) 1.31, Nucleated RBC % 0, Sodium 141, Potassium 3.9, Chloride 104, Carbon Dioxide 32.0, Anion Gap 5, BUN 18, Creatinine 0.80, Estim Creat Clear Calc 46.26, Est GFR (MDRD) Af Amer 88, Est GFR (MDRD) Non-Af 72, BUN/Creatinine Ratio 22.5 H, Glucose 131 H, Calcium 9.5 04/17/23 19:45: POC Glucose 155 H 04/17/23 20:28: Urine Color Yellow, Urine Clarity Clear, Urine pH 6.0, Ur Specific [place] 1.025, Urine Protein 30 H, Urine Glucose (UA) Normal, Urine Ketones 50 H, Urine Occult Blood Negative, Urine Nitrite Negative, Urine Bilirubin Negative, Urine Urobilinogen Normal, Ur Leukocyte Esterase 25 H, UrineRBC 0 SEEN, Urine WBC 0 SEEN, Ur Squamous Epith Cells 0 SEEN, Urine Bacteria 0 SEEN, Urine Mucus 0 SEEN EKG Initial EKG: Attestation: I personally reviewed and interpreted this EKG as follows: Prior EKG tracings: available for review EKG Rhythm Intrepretation: Sinus Rhythm (With PVCs.) Imagaing Radiology Impression Femur X-Ray 04/17/23 17:50 IMPRESSION: Subcapital fracture of the left femoral neck. Electronically Signed: Xiomara Cain MD at 18:29 EST Reading Location ID and State: [id number] / Tel , Service support , Pelvis X-Ray 04/17/23 18:45 IMPRESSION: Findings suspicious for nondisplaced subcapital fracture of the left femoral neck. This is better demonstrated on the x-ray femur. Electronically Signed: Xiomara Cain MD at 20:37 EST Reading Location ID and State: Taisha / Tel , Service support , Chest X-Ray 04/17/23 19:25 IMPRESSION: No radiographic evidence of acute cardiopulmonary disease. Electronically Signed: Xiomara Cain MD at 20:40 EST Reading Location ID and State: Taisha / Tel , Service support , Assessment & Plan Assessment/Plan (1) Fracture of left hip: QUALIFIERS: Encounter type: initial encounter Fracture type: closed Qualified Code(s): S72.002A - Fracture of unspecified part of neck of left femur, initial encounter for closed fracture (2) Leukocytosis: QUALIFIERS: Leukocytosis type: other Qualified Code(s): D72.828 -Other elevated white blood cell count PLAN: Plan Left hip fracture: Status post mechanical fall. Orthopedics has been contacted for the emergency room and plan is for surgery on the . Patient has a good performance status and is medically cleared to proceed with the surgery. Patient is medically optimized to proceed. Will check a 25-hydroxy vitamin D level. Bedrest. Pain control. PT OT evaluate and treat. Leukocytosis: Suspect reactive. Will follow-up in the morning. Urinalysis was unremarkable. Chronic conditions * Postpolio syndrome with left-sided weakness * Status post aortic valve bioprosthetic replacement. * ANDRY: Continue with BiPAP with oxygen bleed. At night. The discussed with the patient's grandson who is at bedside and he stated that he will try to bring him in tonight. * Hypertension: Continue with metoprolol succinate and furosemide. * Hypothyroidism: Continue levothyroxine. VTE prophylaxis SCDs for now. Chemical prophylaxis after surgery. CODE STATUS: Addressed with patient. Patient wishes to be DNR Comfort Care arrest. She is okay with short-term intubation. Disposition: Anticipate patient will require [facility] facility when she is ready for discharge. Charges/Coding Visit Charges Inpatient E&M: 76202 Init Hosp L3 04/17/233 <Electronically signed by Koby Ochoa DO> Cosigner Signature (if applicable): CC: Dr. Koby Ochoa DO; Dr. Ethan Donald MD~ Signed [facility] Work Phone: 1(247) 719-205011-28-2023 Discharge summary Author Deon Dickerson [facility] April 17, 2023 9:17pm Note Date/Time April 17, 2023 6:49pm [facility] Medical Records Department [address] [place] [address] Emergency Department Summary 04/17/23 MR#: [id number] Acct: [id number] Name: SYDNEY DAIGLE Rep #:[id number] : 1935 87 From: Deon Dickerson MD PCP: Dr. Ethan Donald MD Status:ADM I N Location: [facility] [id number] HPI HPI - Fall History of Present Illness Chief Complaint: Fall Informant: patient and family Narrative Narrative: Patient presents with left thigh pain after a fall. Patient is been coming [place] of [place] [employer]. She felt fine. She thinks she might of caught her toe causing her to fall. She was never syncopal. She did not pass out. She did not hit her head now although she did bump her head about2 weeks ago. She is not on blood thinners including not on aspirin or Plavix. She states everything is fine except that hurts in her mid left thigh and she cannot bear weight. 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 Ventricular ectopy Vertigo Vertigo Home Medications calcium carbonate 600 mg-vitamin D3 20 mcg (800 unit) tablet 1 tab PO DAILY supplement 06/30/19 [History Last Taken 07/25/19 08:19] cholecalciferol (vitamin D3) 25 mcg (1,000 unit) tablet 1,000 unit PO DAILY supplement 06/30/19 [History Last Taken 07/25/19 08:22] multivitamin with minerals 1 tab PO DAILY supplement 06/30/19 [History Last Taken 07/25/19 08:19] potassium chloride 10 mEq tablet,extended release(part/cryst) 10 meq PO BIDCM 08/22/19 [Rx Last Taken Unknown] meclizine 25 mg tablet 25 mg PO TID PRN PRN dizziness #21 tabs 12/04/21 [Rx Last Taken Unknown] furosemide 40 mg tablet 40 mg PO DAILY #90 tabs 05/23/22 [Rx Last Taken Unknown] levothyroxine 75 mcg tablet 75 mcg PO DAILY #90 tabs 05/23/22 [Rx Last Taken Unknown] metoprolol succinate 25 mg tablet,extended release 24 hr 25 mg PO DAILY #90 tabs08/28/22 [Rx Last Taken Unknown] Allergy/AdvReac Type Severity Reaction Status Date / Time aspirin Allergy made my Verified 04/17/23 17:29 blood too thin hydrocodone [From Vicodin] Allergy feels Verified 04/17/23 17:29 like getting high niacin AdvReac severe Verified 04/17/23 17:29 sweating simvastatin AdvReac muscle Verified 04/17/23 17:29 aches Family History Father Dementia Mother Liver cirrhosis Sister Aortic valve disease Brother Dementia Surgical History H/O breast biopsy H/O colonoscopy History of aortic valve replacement with bioprosthetic valve (05/06/12) History of aortic valve replacement with bioprosthetic valve History of open reduction and internal fixation (ORIF) procedure (07/09/19) History of parathyroidectomy History of partial mastectomy of left breast History of right and left heart catheterization (09/01/11) History of tonsillectomy and adenoidectomy Hx of cholecystectomy Social History household members: none Smoking Status: Never smoker alcohol intake: current alcohol intake frequency: holidays/special occasions only substance use type: does not use caffeine: Yes Type: coffee Number of servings: 1 ROS ROS ED Constitutional Constitutional ED: Denies chills or fever(s) Eyes Eyes: Denies blurry vision or change in vision Cardiovascular Cardiovascular: Denies chest pain, palpitations or racing heartbeat Respiratory/Chest Respiratory/Chest: Denies cough or dyspnea Gastrointestinal Gastrointestinal: Denies nausea or vomiting Musculoskeletal Musculoskeletal: Reports arthralgias; Denies back pain or neck pain Integumentary Denies Abrasions or rash Neurologic Neurologic: Denies headache(s) Endocrine Endocrinology: Denies polydipsia or polyuria Hematologic/Lymphatic Hematologic/Lymphatic: Denies easy bleeding or easy bruising Allergic/Immunologic Allergic/Immunologic ED: Denies urticaria EXAM Physical Exam Narrative Exam Narrative: General: Patient awake alert no acute distress. She is a very good informant for her history. HEENT: There is some resolving bruising near the left eye. But no tenderness orstep-off. This is from a fall weeks ago. Neck is supple no tenderness. Heart is regular. Lungs are clear bilaterally. Saturations are normal at 96% on room air showing no hypoxia. Abdomen soft nontender Back shows no cervical thoracic or lumbar tenderness and pelvis is stable. Extremities do have pain with motion of the left leg. It is slightly externallyrotated clinically. Although she has pain in the mid thigh it is not tender there. Const Vital Signs: 04/17/23 17:29 04/17/23 18:26 04/17/23 20:32 Temperature 97.4 F L Temperature Source Temporal Pulse Rate 90 102 H Respiratory Rate 17 21 H Respiratory Effort Normal Blood Pressure 119/81 H 102/87 H Blood Pressure Mean 93 92 Pulse Ox 96 94 Oxygen Delivery Method Room Air Room Air Nasal Cannula MDM MDM MDM Narrative Medical decision making narrative: Patient had a nursing protocol x-ray done. My independent interpretation of her4 view left femur does show a femoral neck fracture on the left. Final reading is similar. I will add dedicated hip films. With her fall and fracture she will have to come in. We will do blood work chest x-ray and EKG to assist with clearance. My independent interpretation of her chest x-ray shows findings that may be consistent with hiatal hernia. Final reading is no acute process by radiology. My independent interpretation of her pelvis view shows the hip fracture but no other acute process this is consistent with final read. Patient CBC does show a high white count. This may be demargination from pain and trauma. But we did add a urinalysis even though the patient has no symptoms. Patient's electrolytes show no marked abnormalities. Glucose is slightly 131. Patient's urinalysis is clean shows no sign of infection. I discussed the case with orthopedic surgeon Dr. Pinto as well as Dr. Ochoa. Patient will be admitted. Lab Data Attestation: I reviewed the patient's lab results. Labs: Laboratory Results - last 24 hr 04/17/23 04/17/23 04/17/23 19:10 19:45 20:28 WBC 15.2 H RBC 4.38 Hgb 13.7 Hct 44.2 MCV 100.9 H MCH 31.3 MCHC 31.0 L RDW Std Deviation 51.9 H RDW Coeff of Junior 14.0 Plt Count 264 MPV 10.1 Immature Gran % (Auto) 0.600 Neut % (Auto) 86.0 H Lymph % (Auto) 8.6 L Barnwell % (Auto) 3.9 Eos % (Auto) 0.4 Baso % (Auto) 0.5 Absolute Neuts (auto) 13.1 H Absolute Lymphs (auto) 1.31 Nucleated RBC % 0 Sodium 141 Potassium 3.9 Chloride 104 Carbon Dioxide 32.0 Anion Gap 5 BUN 18 Creatinine 0.80 Estim Creat Clear Calc 46.26 Est GFR (MDRD) Af Amer 88 Est GFR (MDRD) Non-Af 72 BUN/Creatinine Ratio 22.5 H Glucose 131 H Calcium 9.5 Urine Color Yellow Urine Clarity Clear Urine pH 6.0 Ur Specific [place] 1.025 Urine Protein 30 H Urine Glucose (UA) Normal Urine Ketones 50 H Urine Occult Blood Negative Urine Nitrite Negative Urine Bilirubin Negative Urine Urobilinogen Normal Ur Leukocyte Esterase 25 H Urine RBC 0 SEEN Urine WBC 0 SEEN Ur Squamous Epith Cells 0 SEEN Urine Bacteria 0 SEEN Urine Mucus 0 SEEN POC Glucose 155 H Radiography Diagnostic Testing: Clinical Impression(s) from Imaging Studies Femur X-Ray 04/17/23 17:50 IMPRESSION: Subcapital fracture of the left femoral neck. Electronically Signed: Xiomara Cain MD at 18:29 EST Reading Location ID and State: [id number] / Tel , Service support , Pelvis X-Ray 04/17/23 18:45 IMPRESSION: Findings suspicious for nondisplaced subcapital fracture of the left femoral neck. This is better demonstrated on the x-ray femur. Electronically Signed: Xiomara Cain MD at 20:37 EST Reading Location ID and State: [place] Tel , Service support , Chest X-Ray 04/17/23 19:25 IMPRESSION: No radiographic evidence of acute cardiopulmonary disease. Electronically Signed: Xiomara Cain MD at 20:40 EST Reading Location ID and State: [place] Tel , Service support , EKG Initial EKG: Comments: My independent interpretation of the patient's EKG shows possible junctional rhythm. On some of the complexes there appears to be a P wave however. Patient is not having palpitations at all. QRS duration and QTc are normal. Discharge Plan Triage Chief Complaint: Fall ED Provider: Deon Dickerson Dx/Rx/DC Orders Clinical Impression: Family history of polio, Fall from slip, trip, or stumble, Leukocytosis, Fracture of left hip Primary Care Provider: Ethan Donald Disposition Disposition: Acute Care Hospital [facility] What to do if you have Problems For any increased pain, shortness of breath, bleeding, nausea or vomiting, chestpain, or any unexpected problems, contact your Primary Care Provider. Call [facility] ([phone]) or report to the closest Emergency Room. Call 911 if necessary. 04/17/232116 <Electronically signed by Deon Dickerson MD> Cosigner Signature (if applicable): CC: Dr. Ethan Donald MD ~ Signed [facility] Work Phone: [phone]) 397-795711-28-2023 Discharge summary Author Deon Dickerson [facility] April 17, 2023 9:17pm Note Date/Time April 17, 2023 6:49pm [facility] Medical Records Department [address] [place] [id number] Emergency Department Summary 04/17/23 MR#: [id number] Acct: [id number] Name: SYDNEY DAIGLE Adriane Rep #:[id number] : 1935 87 From: Deon Dickerson MD PCP: Dr. Ethan Donald MD Status:ADM I N Location: MS3 TG143-3 HPI HPI - Fall History of Present Illness Chief Complaint: Fall Informant: patient and family Narrative Narrative: Patient presents with left thigh pain after a fall. Patient is been coming out of the [employer]. She felt fine. She thinks she might of caught her toe causing her to fall. She was never syncopal. She did not pass out. She did not hit her head now although she did bump her head about2 weeks ago. She is not on blood thinners including not on aspirin or Plavix. She states everything is fine except that hurts in her mid left thigh and she cannot bear weight. 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 Ventricular ectopy Vertigo Vertigo Home Medications calcium carbonate 600 mg-vitamin D3 20 mcg (800 unit) tablet 1 tab PO DAILY supplement 06/30/19 [History Last Taken 07/25/19 08:19] cholecalciferol (vitamin D3) 25 mcg (1,000 unit) tablet 1,000 unit PO DAILY supplement 06/30/19 [History Last Taken 07/25/19 08:22] multivitamin with minerals 1 tab PO DAILY supplement 06/30/19 [History Last Taken 07/25/19 08:19] potassium chloride 10 mEq tablet,extended release(part/cryst) 10 meq PO BIDCM 08/22/19 [Rx Last Taken Unknown] meclizine 25 mg tablet 25 mg PO TID PRN PRN dizziness #21 tabs 12/04/21 [Rx Last Taken Unknown] furosemide 40 mg tablet 40 mg PO DAILY #90 tabs 05/23/22 [Rx Last Taken Unknown] levothyroxine 75 mcg tablet 75 mcg PO DAILY #90 tabs 05/23/22 [Rx Last Taken Unknown] metoprolol succinate 25 mg tablet,extended release 24 hr 25 mg PO DAILY #90 tabs04/10/23 [Rx Last Taken Unknown] Allergy/AdvReac Type Severity Reaction Status Date / Time aspirin Allergy made my Verified 04/17/23 17:29 blood too thin hydrocodone [From Vicodin] Allergy feels Verified 04/17/23 17:29 like getting high niacin AdvReac severe Verified 04/17/23 17:29 sweating simvastatin AdvReac muscle Verified 04/17/23 17:29 aches Family History Father Dementia Mother Liver cirrhosis Sister Aortic valve disease Brother Dementia Surgical History H/O breast biopsy H/O colonoscopy History of aortic valve replacement with bioprosthetic valve (05/06/12) History of aortic valve replacement with bioprosthetic valve History of open reduction and internal fixation (ORIF) procedure (07/09/19) History of parathyroidectomy History of partial mastectomy of left breast History of right and left heart catheterization (09/01/11) History of tonsillectomy and adenoidectomy Hx of cholecystectomy Social History household members: none Smoking Status: Never smoker alcohol intake: current alcohol intake frequency: holidays/special occasions only substance use type: does not use caffeine: Yes Type: coffee Number of servings: 1 ROS ROS ED Constitutional Constitutional ED: Denies chills or fever(s) Eyes Eyes: Denies blurry vision or change in vision Cardiovascular Cardiovascular: Denies chest pain, palpitations or racing heartbeat Respiratory/Chest Respiratory/Chest: Denies cough or dyspnea Gastrointestinal Gastrointestinal: Denies nausea or vomiting Musculoskeletal Musculoskeletal: Reports arthralgias; Denies back pain or neck pain Integumentary Denies Abrasions or rash Neurologic Neurologic: Denies headache(s) Endocrine Endocrinology: Denies polydipsia or polyuria Hematologic/Lymphatic Hematologic/Lymphatic: Denies easy bleeding or easy bruising Allergic/Immunologic Allergic/Immunologic ED: Denies urticaria EXAM Physical Exam Narrative Exam Narrative: General: Patient awake alert no acute distress. She is a very good informant for her history. HEENT: There is some resolving bruising near the left eye. But no tenderness orstep-off. This is from a fall weeks ago. Neck is supple no tenderness. Heart is regular. Lungs are clear bilaterally. Saturations are normal at 96% on room air showing no hypoxia. Abdomen soft nontender Back shows no cervical thoracic or lumbar tenderness and pelvis is stable. Extremities do have pain with motion of the left leg. It is slightly externallyrotated clinically. Although she has pain in the mid thigh it is not tender there. Const Vital Signs: 04/17/23 17:29 04/17/23 18:26 04/17/23 20:32 Temperature 97.4 F L Temperature Source Temporal Pulse Rate 90 102 H Respiratory Rate 17 21 H Respiratory Effort Normal Blood Pressure 119/81 H 102/87 H Blood Pressure Mean 93 92 Pulse Ox 96 94 Oxygen Delivery Method Room Air Room Air Nasal Cannula MDM MDM MDM Narrative Medical decision making narrative: Patient had a nursing protocol x-ray done. My independent interpretation of her4 view left femur does show a femoral neck fracture on the left. Final reading is similar. I will add dedicated hip films. With her fall and fracture she will have to come in. We will do blood work chest x-ray and EKG to assist with clearance. My independent interpretation of her chest x-ray shows findings that may be consistent with hiatal hernia. Final reading is no acute process by radiology. My independent interpretation of her pelvis view shows the hip fracture but no other acute process this is consistent with final read. Patient CBC does show a high white count. This may be demargination from pain and trauma. But we did add a urinalysis even though the patient has no symptoms. Patient's electrolytes show no marked abnormalities. Glucose is slightly 131. Patient's urinalysis is clean shows no sign of infection. I discussed the case with orthopedic surgeon Dr. Pinto as well as Dr. Ochoa. Patient will be admitted. Lab Data Attestation: I reviewed the patient's lab results. Labs: Laboratory Results - last 24 hr 04/17/23 04/17/23 04/17/23 19:10 19:45 20:28 WBC 15.2 H RBC 4.38 Hgb 13.7 Hct 44.2 MCV 100.9 H MCH 31.3 MCHC 31.0 L RDW Std Deviation 51.9 H RDW Coeff of Junior 14.0 Plt Count 264 MPV 10.1 Immature Gran % (Auto) 0.600 Neut % (Auto) 86.0 H Lymph % (Auto) 8.6 L Barn[place] % (Auto) 3.9 Eos % (Auto) 0.4 Baso % (Auto) 0.5 Absolute Neuts (auto) 13.1 H Absolute Lymphs (auto) 1.31 Nucleated RBC % 0 Sodium 141 Potassium 3.9 Chloride 104 Carbon Dioxide 32.0 Anion Gap 5 BUN 18 Creatinine 0.80 Estim Creat Clear Calc 46.26 Est GFR (MDRD) Af Amer 88 Est GFR (MDRD) Non-Af 72 BUN/Creatinine Ratio 22.5 H Glucose 131 H Calcium 9.5 Urine Color Yellow Urine Clarity Clear Urine pH 6.0 Ur Specific [place] 1.025 Urine Protein 30 H Urine Glucose (UA) Normal Urine Ketones 50 H Urine Occult Blood Negative Urine Nitrite Negative Urine Bilirubin Negative Urine Urobilinogen Normal Ur Leukocyte Esterase 25 H Urine RBC 0 SEEN Urine WBC 0 SEEN Ur Squamous Epith Cells 0 SEEN Urine Bacteria 0 SEEN Urine Mucus 0 SEEN POC Glucose 155 H Radiography Diagnostic Testing: Clinical Impression(s) from Imaging Studies Femur X-Ray 04/17/23 17:50 IMPRESSION: Subcapital fracture of the left femoral neck. Electronically Signed: Xiomara Cain MD at 18:29 EST Reading Location ID and State: Taisha Augustine MD Tel , Service support , Pelvis X-Ray 04/17/23 18:45 IMPRESSION: Findings suspicious for nondisplaced subcapital fracture of the left femoral neck. This is better demonstrated on the x-ray femur. Electronically Signed: Xiomara Cain MD at 20:37 EST Reading Location ID and State: Taisha Augustine MD Tel , Service support , Chest X-Ray 04/17/23 19:25 IMPRESSION: No radiographic evidence of acute cardiopulmonary disease. Electronically Signed: Xiomara Cain MD at 20:40 EST Reading Location ID and State: Taisha Augustine MD Tel , Service support , EKG Initial EKG: Comments: My independent interpretation of the patient's EKG shows possible junctional rhythm. On some of the complexes there appears to be a P wave however. Patient is not having palpitations at all. QRS duration and QTc are normal. Discharge Plan Triage Chief Complaint: Fall ED Provider: Deon Dickerson Dx/Rx/DC Orders Clinical Impression: Family history of polio, Fall from slip, trip, or stumble, Leukocytosis, Fracture of left hip Primary Care Provider: Ethan Donald Disposition Disposition: [facility] What to do if you have Problems For any increased pain, shortness of breath, bleeding, nausea or vomiting, chestpain, or any unexpected problems, contact your Primary Care Provider. Call [facility] ([phone]) or report to the closest Emergency Room. Call 911 if necessary. 04/17/232116 <Electronically signed by Deon Dickerson MD> Cosigner Signature (if applicable): CC: Dr. Ethan Donald MD ~ Signed [facility] Work Phone: 1(391) 997-722111-22-2023 History of Present illness Narrative* Chino Ambrose MD - 04/11/2023 3:07 PM EST FOLLOW UP VISIT - POST OP BREAST CANCER NAME: Sydney Daigle CLINIC NO.: [id number] DATE OF SERVICE: April 10, 2023 : 1935 REFERRING PHYSICIAN: Ethan Donald MD Sydney is a patient I am following for left sided breast cancer. The patient is a 86 year old female with a complaint of a palpable breast mass. The patient notes amass in the central portion of her left breast. The patient has noticed this mass for some time. The patient had a mammogram and ultrasound on March 15, 2022 which demonstrated: There is a 6 cm irregular mass in the left breast at 12 o'clock anterior depth. This correlates as palpated. There is nipple retraction associated with the mass. No other significant masses, calcifications, or other findings are seen in either breast. IMPRESSION: HIGHLY SUGGESTIVE OF MALIGNANCY - APPROPRIATE ACTION SHOULD BE TAKEN The 6 cm irregular mass in the left breast resembles carcinoma and is highly suggestive of malignancy. An ultrasound guided biopsy is recommended. LIMITED ULTRASOUND OF RIGHT BREAST AND LIMITED ULTRASOUND OF LEFT BREAST AND AXILLA: 03/15/2022 RESULT: Comparison is made to exams dated: 08/24/2014 mammogram and 08/18/2011 mammogram - [facility]. Color flow and real-time ultrasound of the right breast and color flow and real-time ultrasound of the left breast 12 o'clock, retroareolar, and axilla regions were performed. Aj scale images of the real-time examination were reviewed. There is 4.7 cm x 4.2 cm x 4.4 cm irregular mass in the left breast at 12 o'clock anterior depth 2 cm from the nipple. This irregular mass is hypoechoic. This correlates as palpated and with mammography findings. There also is a lymph node with focal cortical thickening in the left axillary tail. IMPRESSION: HIGHLY SUGGESTIVE OF MALIGNANCY - APPROPRIATE ACTION SHOULD BE TAKEN The 4.7 cm x 4.2 cm x 4.4 cm irregular mass in the left breast at 12 o'clock anterior depth resembles carcinoma and is highly suggestive of malignancy. An ultrasound guided biopsy or a surgical consult are recommended. The lymph node with focal cortical thickening in the left axillary tail is suspicious of malignancy. An ultrasound guided biopsy is recommended. She does not perform a self breast exam routinely. She notes thickening of the nipple. She notes nipple discharge. She notes no axillary masses. She notes no family history of breast problems. She notes no significant breast trauma or breast difficulties in the past. Her prior mammogram was in 2014 and was unremarkable The patient is being seen by me at the request of Dr. Ethan Donald MD for my opinion and advice regarding a left breast.. I performed left ultrasound-guided core breast biopsy and biopsy of suspicious axillary lymph node on March 22, 2022. Pathology returned as: NAL DIAGNOSIS A. Lymph node, left axillary, #1, ultrasound-guided core biopsy: ---Fragments of benign lymph node. B. 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 Breast Biomarkers RESULTS: Estrogen Receptor (ER) Positive 90 % Stain intensity: strong Internal controls: absent External controls: appropriately stained Progesterone Receptor (CA) Positive 1 % Stain intensity: moderate Internal controls: absent External controls: appropriately stained HER2 (ERBB2) IMMUNOHISTOCHEMISTRY ASSAY Interpretation: NEGATIVE for HER2 (ERBB2) Expression Score: 1+ The patient has multiple comorbidities including congestive heart failure replaced aortic valve andsomewhat limited performance status. I spoke with Dr. Bowen who felt that the patient will be a poor candidate for neoadjuvant treatment and given the fact that the lymph node was negative we would elect to proceed with definitive surgical intervention including sentinel lymph node biopsy. Given the size of the tumor we felt obtaining a PET CT scan to assess for metastatic disease even in the face of a negative axillary lymph node core biopsy was reasonable. The patient returned today for results of biopsy. She had anticipated this would be breast cancer. We extensively discussed her diagnosis and at the last visit discussed her surgical options including breast conservation surgical procedures, mastectomy without reconstruction and mastectomy with reconstruction. The patient has elected to undergo a left side possible needle localization biopsy/lumpectomy with sentinel lymph node biopsy with possible axillary dissection. The patient is being seen by me today at the request of Dr. Ethan Donald MD for my opinion and advice regarding locally advanced left breast cancer. I performed a left large lumpectomy/partial mastectomy with sentinel lymph node injection and biopsy on May 03, 2022. The pathology demonstrated: FINAL DIAGNOSIS A. Left breast, lumpectomy: - Invasive ductal carcinoma, see comment and synoptic report. - Seborrheic keratosis. - Two clips identified. B. Left sentinel lymph node, #1, excision: - 2 lymph nodes, negative for metastatic carcinoma (0/2). - Biopsy site identified. C. Left sentinel lymph node, cold node, out at 1336, excision: - 1 lymph node, negative for metastatic carcinoma (0/1). D. Left sentinel lymph node #2, excision: - 1 lymph node, negative for metastatic carcinoma (0/1). MARGINS Margin Status for Invasive Carcinoma All margins negative for invasive carcinoma Distance from Invasive Carcinoma to Closest Margin 10 mm Closest Margin(s) to Invasive Carcinoma Posterior REGIONAL LYMPH NODES Regional Lymph Node Status All regional lymph nodes negative for tumor Total Number of Lymph Nodes Examined (sentinel and non-sentinel) 4 Number of [place] Nodes Examined 4 PATHOLOGIC STAGE CLASSIFICATION (pTNM, AJCC 8th Edition) Reporting of pT, pN, and (when applicable) pM categories is based on information available to the pathologist at the time the report is issued. As per the AJCC (Chapter 1, 8th Ed.) it is the managingphysician s responsibility to establish the final pathologic stage based upon all pertinent information, including but potentially not limited to this pathology report. pT Category pT3 Regional Lymph Nodes Modifier (sn): [place] node(s) evaluated. pN Category pN0 Breast Biomarker Testing Performed on Previous Biopsy Estrogen Receptor (ER) Status Positive (greater than 10% of cells demonstrate nuclear positivity) Percentage of Cells with Nuclear Positivity 90 % Breast Biomarker Testing Performed on Previous Biopsy Sydney notes minimal pain. Post operative pain has been well controlled. The patient denies nausea. The patient`s appetite has been good. No drains were placed. Recommended the patient be referred to oncology for consideration of estrogen suppression given herER status but agreed that radiation therapy or chemotherapy would not be indicated given her medical comorbidities age and her personal opinion. The patient initially declined referral to oncology and stated she would likely not take estrogen suppression therapy. She returns today for follow-up. She had good range of motion and no complaints at her incision sites. She underwent follow-up mammography on April 04, 2023 which demonstrated: IMPRESSION: BENIGN FINDING There is no mammographic evidence of malignancy. Return to annual mammogram screening schedule is recommended. TECHNIQUE: The study was acquired using full field digital technology and interpreted from soft copy. Digital Breast Tomosynthesis (DBT) images were obtained and used to assist in the interpretation of this examination. Current study was also evaluated with a Computer Aided Detection (CAD). Comparison is made to exams dated: 03/30/2022 mammogram and 03/15/2022 mammogram - [facility]. There are scattered areas of fibroglandular density. The left breast has post-operative findings. There is a benign coarse calcification in the right breast. No significant masses, calcifications, or other findings are seen in either breast. VITALS: Blood pressure 110/82, pulse 72, temperature 37.1 C (98.7 F), SpO2 95 %. On examination, the left skin incision is clean, dry, and intact. The patient went a very large lumpectomy near half the superficial breast was removed due to the size of the tumor. There were no palpable abnormalities in the left breast. The axillary portion of the incision is clean, dry and intact. The incisions are well-healed. The right breast has no palpable abnormalities retraction or nipple discharge. Assessment IMPRESSION: Status Post left partial mastectomy with sentinel lymph node biopsy for left invasive breast cancer. PLAN: Sydney is doing quite well. I would asked that she return for follow-up clinical exam Chiara Elder in 1 year. If the patient notes any abnormalities or concerning sites then she should contact me immediately. Diagnoses: (C50.912, Z17.0) Malignant neoplasm of left breast in female, estrogen receptor positive, unspecified site of breast (HCC) (primary encounter diagnosis) Return to Clinic: The patient is instructed to follow-up with me in 12 months with mammogram prior to that visit. Chino Ambrose MD documented in this encounter[facility]11-15-2023 History of Present illness Narrative* Kwaku Linda Mammo Tech - 04/04/2023 2:00 PM EST Radiology Service Progress Note PATIENT NAME: Sydney Daigle DATE OF SERVICE: April 04, 2023 TIME: 2:30 PM PATIENT IDENTITY VERIFICATION COMPLETED USING TWO (2) IDENTIFIERS: Name and Date of confirmedby patient verbally. FALL SCREENING: Has the patient had 2 falls in the last year or 1 fall with injury or currently using an Ambulatory Assistive Device (Walker, Cane, Wheelchair, Crutches, etc.)? No PATIENT GENDER DATA: Female. status: : No status: NO. PATIENT RELEVANT IMPLANT DATA REVIEWED: Not Applicable RADIOLOGY DEPARTMENT: Mammography PERIPHERAL IV DATA: Not applicable SIGNED BY: Kwaku Linda Mammo Alex April 04, 2023 2:30 PM * Kwaku Linda Mammo Tech - 04/04/2023 2:00 PM EST Radiology Service Progress Note PATIENT NAME: Sydney Daigle DATE OF SERVICE: April 04, 2023 TIME: 2:31 PM PATIENT IDENTITY VERIFICATION COMPLETED USING TWO (2) IDENTIFIERS: Name and Date of confirmedby patient verbally. FALL SCREENING: Has the patient had 2 falls in the last year or 1 fall with injury or currently using an Ambulatory Assistive Device (Walker, Cane, Wheelchair, Crutches, etc.)? Yes, Patient High Riskfor Falls What interventions were put in place to prevent falls during this visit? Increased Observations by Caregivers PATIENT GENDER DATA: Female. status: : No status: NO. PATIENT RELEVANT IMPLANT DATA REVIEWED: Not Applicable RADIOLOGY DEPARTMENT: Mammography PERIPHERAL IV DATA: Not applicable SIGNED BY: Rosalba Bentley April 04, 2023 2:31 PM documented in this encounterMercy Health10-31-2023 Miscellaneous Notes* Telephone Encounter - Thalia Rodriguez - 03/20/2023 3:45 PM EDT Patient given results and verbalized understanding of instructions given. Thalia Rodriguez * Telephone Encounter - Kwadwo Mccray APRN.CNP - 03/20/2023 3:24 PM EDT No significant acute findings noted on lab work. Continue plan of care as discussed follow-up with PCP as scheduled. Kwadwo Mccray APRN.CNP documented in this encounterMercy Health10-31-2023 History of Present illness Narrative* Rosa Crooks RT(R) - 03/20/2023 1:30 PM EDT Radiology Service Progress Note PATIENT NAME: Sydney Daigle DATE OF SERVICE: March 20, 2023 TIME: 1:29 PM PATIENT IDENTITY VERIFICATION COMPLETED USING TWO (2) IDENTIFIERS: Name and Date of confirmedby patient verbally. FALL SCREENING: Has the patient had 2 falls in the last year or 1 fall with injury or currently using an Ambulatory Assistive Device (Walker, Cane, Wheelchair, Crutches, etc.)? No PATIENT GENDER DATA: Female. status: : No status: NO. PATIENT RELEVANT IMPLANT DATA REVIEWED: Not Applicable RADIOLOGY DEPARTMENT: General X-ray: Exam(s) Completed: Chest X-Ray PERIPHERAL IV DATA: Not applicable SIGNED BY: RT Charlotte(R) March 20, 2023 1:29 PM documented in this encounterMercy Health10-31-2023 History of Present illness Narrative* Kwadwo Mccray APRN.PILOT PLANT TECHNICIAN - 03/20/2023 1:08 PM EDT Subjective HPI Nontoxic-appearing female presents urgent care chief complaint cough fatigue nasal congestion. Duration of symptoms 3 weeks. Associated symptoms listed above. Initially did have a temperature of 101.That has subsided. Has had low 99 temperatures at night recently. No known sick contacts. Denies any OTC medication use today. Is staying hydrated. Eating some not a normal diet. Denies any high fevers productive cough chest pain shortness of breath hemoptysis nausea vomiting abdominal pain or change in bowel or bladder habits. Past medical history prescription medication use allergies reviewed. .Patient presents with: Chest Congestion: cough, fatigue, low grade fever x 3 weeks PAST MEDICAL HISTORY Diagnosis Date Anemia due to GI blood loss 08/19/2010 duodenal ulcer Aortic valve stenosis, moderate 08/19/2010 aortic valve replacement 05/06/12 Benign hypertension 02/28/2016 BPPV (benign paroxysmal positional vertigo) Breast cancer (HCC) 05/03/2022 left Broken ankle 06/30/2019 Chronic diastolic heart failure (HCC) 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 History of aortic valve replacement with bioprosthetic valve Hyperparathyroidism, unspecified (HCC) parathyroidectomy 2007 Hypothyroidism 08/19/2010 Nocturnal hypoxia 05/12/2013 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, 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) Other and unspecified hyperlipidemia Personal history of colonic polyps Colon polyps Renal stone 08/19/2010 Statin intolerance 07/29/2014 Unspecified disorders of calcium metabolism Unspecified functional disorder of intestine Unspecified hearing loss RIGHT EAR ONLY PAST SURGICAL HISTORY Procedure Laterality Date ADENOIDECTOMY PRIMARY <AGE 14 Adenoidectomy ANKLE SURGERY HX 07/09/2019 BREAST LUMPECTOMY HX Left 05/03/2022 BX/EXC LYMPH NODE OPEN DEEP AXILLARY NODE Left 05/03/2022 CATARACT EXTRACTION HX 03/18/2014 CHOLECYSTECTOMY Cholecystectomy COLONOSCOPY FLX DX W/COLLJ SPEC WHEN PFRMD 10/08/94,11/11/04 Colonoscopy-repeat in COLONOSCOPY FLX DX W/COLLJ SPEC WHEN PFRMD 04/03/2016 Colonoscopy COLSC FLX W/RMVL OF TUMOR POLYP LESION SNARE TQ 11/2004 Polpectomy, lg intestine ESOPHAGOGASTRODUODENOSCOPY TRANSORAL DIAGNOSTIC 07/12/2010 EGD inpt [facility] H-pylori is negative EXCISION PARATHYROID TUMOR 2006 3 parathyroid glands removed LAPAROSCOPY SURG CHOLECYSTECTOMY 11/01/1990 Cholecystectomy, lap LEFT HEART CATH,PERCUTANEOUS 09/01/2011 Cardiac cath, L heart RENAL NDSC NEPHROS/PYELOSTOMY RMVL FB/CALCULUS 06/2010 Dr Hudson RIGHT HEART CATHETERIZATION 09/01/2011 Cardiac cath, R heart RPLCMT PROST AORTIC VALVE OPEN XCP HOMOGRF/STENT 05/06/2012 Aortic valve replacement THYROID FINE NEEDLE ASPIRATION 11/14/2004 TONSILLECTOMY PRIMARY/SECONDARY <AGE 14 Tonsillectomy XCAPSL CTRC RMVL INSJ IO LENS PROSTH W/O ECP Cataract Extraction with PC IOL ALLERGIES Aspirin, Niacin, Simvastatin, and Vicodin [Hydrocodone-Acetaminophen] MEDICATIONS potassium chloride ER (KLOR-CON M10) 10 mEq tablet Take 1 tablet by mouth two times a day. meclizine (ANTIVERT) 25 mg tab Take 1 tablet by mouth every 6 hours as needed (dizziness). calcium carbonate/vitamin D3 (CALTRATE 600 PLUS D ORAL) Take by mouth. levothyroxine (SYNTHROID) 75 mcg tablet Take 1 tablet by mouth once daily. Cholestyramine-Aspartame (PREVALITE) 4 gram powder Take 4 g by mouth once daily. (Patient taking differently: Take 4 g by mouth as needed. PRN) furosemide (LASIX) 40 mg tablet Take 1 tablet by mouth twice daily. (Patient taking differently: Take 40 mg by mouth once daily.) metoprolol succinate ER (TOPROL XL) 25 mg 24 hr tablet Take 1 tablet by mouth once daily. Natalia-3 Fatty Acids, FISH OIL, (FISH OIL) 360-1,200 mg cap Take 1 capsule by mouth twice daily withmeals. (Patient taking differently: Take 1 capsule by mouth once daily.) ONE-A-DAY WOMENS FORMULA TAB Take one(1) tablet daily. FAMILY HISTORY Problem Relation Age of Onset other (LIVER CIRRHOSIS) Mother Alzheimer's Disease Father Social History Tobacco Use Smoking status: Never Smokeless tobacco: Never Vaping Use Vaping Use: Never used Substance Use Topics Alcohol use: Yes Comment: SLIGHT Drug use: No BP 122/64 Pulse 92 Temp 37 C (98.6 F) Resp 20 Wt 68.5 kg (151 lb) SpO2 95% BMI 27.62 kg/m Review of Systems Constitutional: Positive for malaise/fatigue. Negative for chills and fever. HENT: Positive for congestion and sinus pain. Negative for ear discharge, ear pain and sore throat. Eyes: Negative for blurred vision, pain, discharge and redness. Respiratory: Positive for cough. Negative for hemoptysis, sputum production, shortness of breath, wheezing and stridor. Cardiovascular: Negative for chest pain. Gastrointestinal: Negative for abdominal pain, diarrhea, nausea and vomiting. Musculoskeletal: Positive for myalgias. Skin: Negative for itching and rash. Neurological: Negative for dizziness and headaches. Objective Physical Exam Constitutional: General: She is not in acute distress. Appearance: She is not diaphoretic. HENT: Head: Normocephalic. Jaw: No trismus, tenderness, swelling or pain on movement. Nose: Congestion present. Mouth/Throat: Mouth: Mucous membranes are moist. Pharynx: Oropharynx is clear. Uvula midline. No pharyngeal swelling, oropharyngeal exudate, posterior oropharyngeal erythema or uvula swelling. Eyes: Conjunctiva/sclera: Conjunctivae normal. Pupils: Pupils are equal, round, and reactive to light. Cardiovascular: Rate and Rhythm: Normal rate and regular rhythm. Heart sounds: Normal heart sounds. Pulmonary: Effort: Pulmonary effort is normal. No tachypnea, accessory muscle usage or respiratory distress. Breath sounds: No stridor. Rhonchi present. No wheezing or rales. Abdominal: General: There is no distension. Palpations: Abdomen is soft. Tenderness: There is no abdominal tenderness. There is no guarding or rebound. Musculoskeletal: Cervical back: Normal range of motion and neck supple. No edema, erythema, rigidity or tenderness. No pain with movement. Normal range of motion. Lymphadenopathy: Cervical: No cervical adenopathy. Skin: General: Skin is warm and dry. Neurological: Mental Status: She is alert and oriented to person, place, and time. ASSESSMENT/PLAN: 1. Acute cough - ICD9: 786.2, ICD10: R05.1 (primary diagnosis) - XR CHEST 2V FRONTAL/LAT 2. Community acquired pneumonia of right lower lobe of lung - ICD9: 486, ICD10: J18.9 - CBC + DIFF - COMP METABOLIC PANEL Patient nontoxic-appearing. Hemodynamically stable. CBC revealed slight elevation and WBC and neutrophils. No notable acute findings noted on CMP. Curb 65 1. Treat as CAP. Treat with doxycycline and Augmentin. Follow-up with PCP as scheduled. Red flags prompt reevaluation discussed. Patient was educated on supportive therapies. Patient was instructed to immediately proceed to emergency room for any new, worsening, or symptoms lasting longer than anticipated. The patient's clinical presentation is otherwise unremarkable at this time. Based on exam and clinical finding, the patient is stable for discharge. Plan of care was discussed with patient. Patient verbalizes understanding and agrees toplan of care. This note was generated using [employer] software. It may contain errors in wording, punctuation, or spelling. Kwadwo Mccray APRN.PILOT PLANT TECHNICIAN documented in this encounterMercy Health09-28-2023 History of Present illness Narrative* Ethan Donald MD - 02/15/2023 3:33 PM EDT Patient presents with: Follow Up HPI: Patient presents today for office visit for follow up. No concerns today. Overall feeling well. Needs handicap placard renewal. Continues on Meclizine for vertigo. Helping. Used a couple days ago when she felt off-balance. Followed by Dr. Monsalve with [facility]. Denies chest pain. Some shortness of breath with exertion. Denies swelling to feet, ankles or legs. Continues on Lasix 40 mg daily Discussed cholesterol. She states she is doing nothing about it. HYPOTHYROID: Patient is compliant with medications: Yes. Continues on Levothyroxine 75 mcg Patient has changes in energy: No Patient has changes in hair or skin: No Patient has temperature intolerance: No Patient has weight changes: No Ambulates with cane. Has had a few falls in the last few months. No major injuries. Did not have togo to ER. Followed by Dr. Ambrose. No bowel concerns or issues. Component Latest Ref Rng & Units 02/13/2023 WBC 3.70 - 11.00 k/uL 5.99 RBC 3.90 - 5.20 m/uL 4.48 Hemoglobin 11.5 - 15.5 g/dL 14.4 Hematocrit 36.0 - 46.0 % 46.1 (H) MCV 80.0 - 100.0 fL 102.9 (H) MCH 26.0 - 34.0 pg 32.1 MCHC 30.5 - 36.0 g/dL 31.2 RDW-CV 11.5 - 15.0 % 12.9 Platelet Count 150 - 400 k/uL 178 MPV 9.0 - 12.7 fL 10.5 Neut% % 48.5 Abs Neut (ANC) 1.45 - 7.50 k/uL 2.91 Lymph% % 36.4 Abs Lymph 1.00 - 4.00 k/uL 2.18 Barnwell% % 10.0 Abs Barnwell <0.87 k/uL 0.60 Eosin% % 4.2 Abs Eosin <0.46 k/uL 0.25 Baso% % 0.7 Abs Baso <0.11 k/uL 0.04 Immature Gran % % 0.2 IMMATURE GRANS (ABS) <0.10 k/uL <0.03 NRBC /100 WBC 0.0 Absolute nRBC <0.01 k/uL <0.01 DTYPE Auto Protein, Total 6.3 - 8.0 g/dL 7.3 Albumin 3.9 - 4.9 g/dL 4.2 Calcium 8.5 - 10.2 mg/dL 9.7 Bilirubin, Total 0.2 - 1.3 mg/dL 0.4 Alkaline Phosphatase 34 - 123 U/L 82 AST 13 - 35 U/L 33 ALT 7 - 38 U/L 17 Glucose 74 - 99 mg/dL 92 BUN 7 - 21 mg/dL 19 Creatinine 0.58 - 0.96 mg/dL 0.82 Sodium 136 - 144 mmol/L 141 Potassium 3.7 - 5.1 mmol/L 4.5 Chloride 97 - 105 mmol/L 101 CO2 22 - 30 mmol/L 33 (H) Anion Gap 9 - 18 mmol/L 7 (L) eGFR >=60 mL/min/1.73m 70 Cholesterol, Total <200 mg/dL 272 (H) Triglyceride <150 mg/dL 190 (H) HDL Cholesterol >39 mg/dL 67 Non HDL Cholesterol <130 mg/dL 205 (H) Fasting Time hrs 12 VLDL Cholesterol <30 mg/dL 38 (H) TC:HDL Ratio <5.10 4.06 LDL Cholesterol <100 mg/dL 167 (H) LDL:HDL Ratio <2.54 2.49 Hemoglobin A1C 4.3 - 5.6 % 5.3 Estimated Average Glucose mg/dL 105 TSH 0.270 - 4.200 mIU/L 3.780 Vitamin B12 232 - 1,245 pg/mL 436 Folate >4.7 ng/mL >20.0 MEDICATIONS: Current Outpatient Medications Medication Sig meclizine (ANTIVERT) 25 mg tab Take 1 tablet by mouth every 6 hours as needed (dizziness). calcium carbonate/vitamin D3 (CALTRATE 600 PLUS D ORAL) Take by mouth. levothyroxine (SYNTHROID) 75 mcg tablet Take 1 tablet by mouth once daily. potassium chloride ER (KLOR-CON M10) 10 mEq tablet Take 1 tablet by mouth twice daily. Cholestyramine-Aspartame (PREVALITE) 4 gram powder Take 4 g by mouth once daily. (Patient taking differently: Take 4 g by mouth as needed. PRN) furosemide (LASIX) 40 mg tablet Take 1 tablet by mouth twice daily. (Patient taking differently: Take 40 mg by mouth once daily.) metoprolol succinate ER (TOPROL XL) 25 mg 24 hr tablet Take 1 tablet by mouth once daily. Natalia-3 Fatty Acids, FISH OIL, (FISH OIL) 360-1,200 mg cap Take 1 capsule by mouth twice daily withmeals. (Patient taking differently: Take 1 capsule by mouth once daily.) ONE-A-DAY WOMENS FORMULA TAB Take one(1) tablet daily. No current facility-administered medications for this visit. ALLERGIES: ALLERGIES Allergen Reactions Aspirin Other: See Comments bleeding duodenal ulcer Niacin Other: See Comments hot flashing Simvastatin BODYACHES Vicodin [Hydrocodon* GI Upset PAST MEDICAL HISTORY Diagnosis Date Anemia due to GI blood loss 08/19/2010 duodenal ulcer Aortic valve stenosis, moderate 08/19/2010 aortic valve replacement 05/06/12 Benign hypertension 02/28/2016 BPPV (benign paroxysmal positional vertigo) Breast cancer (HCC) 05/03/2022 left Broken ankle 06/30/2019 Chronic diastolic heart failure (HCC) 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 History of aortic valve replacement with bioprosthetic valve Hyperparathyroidism, unspecified (HCC) parathyroidectomy 2007 Hypothyroidism 08/19/2010 Nocturnal hypoxia 05/12/2013 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, 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) Other and unspecified hyperlipidemia Personal history of colonic polyps Colon polyps Renal stone 08/19/2010 Statin intolerance 07/29/2014 Unspecified disorders of calcium metabolism Unspecified functional disorder of intestine Unspecified hearing loss RIGHT EAR ONLY PAST SURGICAL HISTORY Procedure Laterality Date ADENOIDECTOMY PRIMARY <AGE 14 Adenoidectomy ANKLE SURGERY HX 07/09/2019 BREAST LUMPECTOMY HX Left 05/03/2022 BX/EXC LYMPH NODE OPEN DEEP AXILLARY NODE Left 05/03/2022 CATARACT EXTRACTION HX 03/18/2014 CHOLECYSTECTOMY Cholecystectomy COLONOSCOPY FLX DX W/COLLJ SPEC WHEN PFRMD 10/08/94,11/11/04 Colonoscopy-repeat in COLONOSCOPY FLX DX W/COLLJ SPEC WHEN PFRMD 04/03/2016 Colonoscopy COLSC FLX W/RMVL OF TUMOR POLYP LESION SNARE TQ 11/2004 Polpectomy, lg intestine ESOPHAGOGASTRODUODENOSCOPY TRANSORAL DIAGNOSTIC [facility] EXC[facility] PARATHYROID TUMOR 2007 3 parathyroid glands removed LAPAROSCOPY SURG CHOLECYSTECTOMY 11/01/1990 Cholecystectomy, lap LEFT HEART CATH,PERCUTANEOUS 09/01/2011 Cardiac cath, L heart RENAL NDSC NEPHROS/PYELOSTOMY RMVL FB/CALCULUS 06/2010 Dr Hudson RIGHT HEART CATHETERIZATION 09/01/2011 Cardiac cath, R heart RPLCMT PROST AORTIC VALVE OPEN XCP HOMOGRF/STENT 05/06/2012 Aortic valve replacement THYROID FINE NEEDLE ASPIRATION 11/14/2004 TONSILLECTOMY PRIMARY/SECONDARY <AGE 14 Tonsillectomy XCAPSL CTRC RMVL INSJ IO LENS PROSTH W/O ECP Cataract Extraction with PC IOL FAMILY HISTORY Problem Relation Age of Onset other (LIVER CIRRHOSIS) Mother Alzheimer's Disease Father Social History Tobacco Use Smoking status: Never Smokeless tobacco: Never Vaping Use Vaping Use: Never used Substance Use Topics Alcohol use: Yes Comment: SLIGHT Drug use: No Reviewed current medications, allergies, past medical history, surgical history, family history andsocial history today. REVIEW OF SYSTEMS All other reviewed and negative other than HPI. HEALTH MAINTENANCE: Reviewed health maintenance issues today and recommended the following in detail. There are no preventive care reminders to display for this patient. VITALS: BP 120/56 Pulse 78 Ht 157.5 cm (5' 2) Wt 73 kg (161 lb) SpO2 93% BMI 29.45 kg/m Last 4 Encounter Wt Readings: Date: Wt: 08/14/2022 69.3 kg (152 lb 12.8 oz) 08/03/2022 69.3 kg (152 lb 12.8 oz) 06/01/2022 67.9 kg (149 lb 12.8 oz) 05/18/2022 66.2 kg (146 lb) PHYSICAL EXAMINATION: General appearance: Well appearing, alert, in no acute distress, well-hydrated, well nourished. Skin: Skin color, texture, turgor normal, no suspicious rashes or lesions Head: Normocephalic, no masses, lesions, tenderness or abnormalities Lungs: Lungs clear to auscultation. No wheezing, rhonchi, rales Heart: RRR, murmur unchanged. , gallop, or rubs. No ectopy Abdomen: Normal abdominal exam, Abdomen soft, non-tender. Bowel sounds normal. No masses, organomegaly Extremities: No deformities, edema, skin discoloration, clubbing or cyanosis. Good capillary refill. Musculoskeletal: No joint swelling, deformity, or tenderness ASSESSMENT/PLAN: 1. Chronic diastolic congestive heart failure (HCC) - ICD9: 428.32, 428.0, ICD10: I50.32 (primary diagnosis) No signs of fluid overload. 2. Hypokalemia - ICD9: 276.8, ICD10: E87.6 - doing well - POTASSIUM CHLORIDE ER 10 MEQ TABLET,EXTENDED RELEASE(PART/CRYST) 3. S/P aortic valve replacement - ICD9: V43.3, ICD10: Z95.2 - per cardiology 4. Hyperlipidemia LDL goal <100 - ICD9: 272.4, ICD10: E78.5 - declines tx 5. Nocturnal hypoxia - ICD9: 327.24, ICD10: G47.34 - per Dr. Paul. Using bipap. Uses oxygen at as well. 6. Diaphragmatic paresis - ICD9: 519.4, ICD10: J98.6 - stable. 7. Obstructive sleep apnea syndrome - ICD9: 327.23, ICD10: G47.33 - as above. 8. Acquired hypothyroidism - ICD9: 244.9, ICD10: E03.9 - stable. 9. Malignant neoplasm of left female breast, unspecified estrogen receptor status, unspecified siteof breast (HCC) - ICD9: 174.9, ICD10: C50.912 - per Dr Ambrose. 10. Statin intolerance - ICD9: 995.27, ICD10: Z78.9 - as above. Ethan Donald MD documented in this encounterMercy Health09-25-2023 Miscellaneous Notes* Telephone Encounter - Vivian Contreras RN - 02/12/2023 2:54 PM EDT Pt called and is notified of providers results and instructions. Pt voices understanding. Vivian Contreras RN * Telephone Encounter - Ethan Donald MD - 02/12/2023 12:52 PM EDT Labs ok except sugar up slightly and red cells are big. Recheck b12, folate which can enlarge rbcs and check a1c for sugar documented in this encounterMercy Health09-25-2023 Miscellaneous Notes* Telephone Encounter - Haydee Salinas LPN - 02/12/2023 8:47 AM EDT Jessi with [facility] Outpatient Lab calls to request lab orders be faxed to: [phone]. Orders for TSH. Lipids, CMP, and CBC faxed as requested. Haydee Salinas LPN documented in this encounterMercy Health09-22-2023 Miscellaneous Notes* Telephone Encounter - Brianna Jones Ma - 02/09/2023 11:12 AM EDT Patient was left vm on confidential voicemail Brinana Jones Ma * Telephone Encounter - Ethan Donald MD - 02/09/2023 10:48 AM EDT done * Telephone Encounter - Jemima Mao - 02/09/2023 10:42 AM EDT Patient requesting TSH lab to be added to her already ordered labs. She is refusing to do lipid. Jemima Mao documented in this encounterMercy Health03-27-2023 History of Present illness Narrative* Ethan Donald MD - 08/14/2022 2:54 PM EDT Patient presents with: 6 Month Exam HPI: Patient presents today for office visit for follow up. VERTIGO: Saw ENT on 08/10/22 and had wax removed from ears. Dizziness, N&V, and sweating started that afternoon until Sunday08/12/22. Was using Meclizine that whole time. Some relief. Symptoms have sincecleared. Was having vomiting. No headache or fever. Follows with Dr. Monsalve, Cardiology. Continues on meds. Denies chest pain and shortness of breath Following with Dr. Ambrose. HYPERTENSION:had recently had bmp and tsh. Has had no further vertigo. No chest pain or shortness of breath. No edema. HYPOTHYROID. No weight changes. No changes with hair or skin. Uses her can. No falls. MEDICATIONS: Current Outpatient Medications Medication Sig meclizine (ANTIVERT) 25 mg tab Take 1 tablet by mouth every 6 hours as needed (dizziness). calcium carbonate/vitamin D3 (CALTRATE 600 PLUS D ORAL) Take by mouth. levothyroxine (SYNTHROID) 75 mcg tablet Take 1 tablet by mouth once daily. potassium chloride ER (KLOR-CON M10) 10 mEq tablet Take 1 tablet by mouth twice daily. Cholestyramine-Aspartame (PREVALITE) 4 gram powder Take 4 g by mouth once daily. (Patient taking differently: Take 4 g by mouth as needed. PRN) furosemide (LASIX) 40 mg tablet Take 1 tablet by mouth twice daily. (Patient taking differently: Take 40 mg by mouth once daily.) metoprolol succinate ER (TOPROL XL) 25 mg 24 hr tablet Take 1 tablet by mouth once daily. Natalia-3 Fatty Acids, FISH OIL, (FISH OIL) 360-1,200 mg cap Take 1 capsule by mouth twice daily withmeals. (Patient taking differently: Take 1 capsule by mouth once daily.) ONE-A-DAY WOMENS FORMULA TAB Take one(1) tablet daily. No current facility-administered medications for this visit. ALLERGIES: ALLERGIES Allergen Reactions Aspirin Other: See Comments bleeding duodenal ulcer Niacin Other: See Comments hot flashing Simvastatin BODYACHES Vicodin [Hydrocodon* GI Upset PAST MEDICAL HISTORY Diagnosis Date Anemia due to GI blood loss 08/19/2010 duodenal ulcer Aortic valve stenosis, moderate 08/19/2010 aortic valve replacement 05/06/12 Benign hypertension 02/28/2016 BPPV (benign paroxysmal positional vertigo) Breast cancer (HCC) 05/03/2022 left Broken ankle 06/30/2019 Chronic diastolic heart failure (HCC) 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 History of aortic valve replacement with bioprosthetic valve Hyperparathyroidism, unspecified (HCC) parathyroidectomy 2006 Hypothyroidism 08/19/2010 Nocturnal hypoxia 05/12/2013 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, 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) Other and unspecified hyperlipidemia Personal history of colonic polyps Colon polyps Renal stone 08/19/2010 Statin intolerance 07/29/2014 Unspecified disorders of calcium metabolism Unspecified functional disorder of intestine Unspecified hearing loss RIGHT EAR ONLY PAST SURGICAL HISTORY Procedure Laterality Date ADENOIDECTOMY PRIMARY <AGE 14 Adenoidectomy ANKLE SURGERY HX 07/09/2019 BREAST LUMPECTOMY HX Left 05/03/2022 BX/EXC LYMPH NODE OPEN DEEP AXILLARY NODE Left 05/03/2022 CATARACT EXTRACTION HX 03/18/2014 CHOLECYSTECTOMY Cholecystectomy COLONOSCOPY FLX DX W/COLLJ SPEC WHEN PFRMD 10/08/94,11/11/04 Colonoscopy-repeat in COLONOSCOPY FLX DX W/COLLJ SPEC WHEN PFRMD 04/03/2016 Colonoscopy COLSC FLX W/RMVL OF TUMOR POLYP LESION SNARE TQ 11/2004 Polpectomy, lg intestine ESOPHAGOGASTRODUODENOSCOPY TRANSORAL DIAGNOSTIC [facility]/12[facility] EXCISION PARATHYROID TUMOR 2006 3 parathyroid glands removed LAPAROSCOPY SURG CHOLECYSTECTOMY 11/01/1990 Cholecystectomy, lap LEFT HEART CATH,PERCUTANEOUS 09/01/2011 Cardiac cath, L heart RENAL NDSC NEPHROS/PYELOSTOMY RMVL FB/CALCULUS 06/2010 Dr Hudson RIGHT HEART CATHETERIZATION 09/01/2011 Cardiac cath, R heart RPLCMT PROST AORTIC VALVE OPEN XCP HOMOGRF/STENT 05/06/2012 Aortic valve replacement THYROID FINE NEEDLE ASPIRATION 11/14/2004 TONSILLECTOMY PRIMARY/SECONDARY <AGE 14 Tonsillectomy XCAPSL CTRC RMVL INSJ IO LENS PROSTH W/O ECP Cataract Extraction with PC IOL FAMILY HISTORY Problem Relation Age of Onset other (LIVER CIRRHOSIS) Mother Alzheimer's Disease Father Social History Tobacco Use Smoking status: Never Smokeless tobacco: Never Vaping Use Vaping Use: Never used Substance Use Topics Alcohol use: Yes Comment: SLIGHT Drug use: No Reviewed current medications, allergies, past medical history, surgical history, family history andsocial history today. REVIEW OF SYSTEMS All other reviewed and negative other than HPI. HEALTH MAINTENANCE: Reviewed health maintenance issues today and recommended the following in detail. ADVANCE DIRECTIVE DISCUSSION- on file. DEPRESSION ASSESSMENT - one. VITALS: BP 130/74 Pulse 62 Ht 157.5 cm (5' 2) Wt 69.3 kg (152 lb 12.8 oz) SpO2 95% BMI 27.95 kg/m Last 4 Encounter Wt Readings: Date: Wt: 08/03/2022 69.3 kg (152 lb 12.8 oz) 06/01/2022 67.9 kg (149 lb 12.8 oz) 05/18/2022 66.2 kg (146 lb) 05/11/2022 66.5 kg (146 lb 9.6 oz) PHYSICAL EXAMINATION: General appearance: Well appearing, alert, in no acute distress, well-hydrated, well nourished. Skin: Skin color, texture, turgor normal, no suspicious rashes or lesions Head: Normocephalic, no masses, lesions, tenderness or abnormalities Lungs: Lungs clear to auscultation. No wheezing, rhonchi, rales Heart: RRR .murmur unchanged. gallop, or rubs. No ectopy Abdomen: Normal abdominal exam, Abdomen soft, non-tender. Bowel sounds normal. No masses, organomegaly Extremities: No deformities, edema, skin discoloration, clubbing or cyanosis. Good capillary refill. Musculoskeletal: No joint swelling, deformity, or tenderness ASSESSMENT/PLAN: 1. Chronic diastolic congestive heart failure (HCC) - ICD9: 428.32, 428.0, ICD10: I50.32 (primary diagnosis) - stable. 2. Benign hypertension - ICD9: 401.1, ICD10: I10 - good control - Continue current medication(s) - Goal of BP <130/80 3. Hyperlipidemia LDL goal <100 - ICD9: 272.4, ICD10: E78.5 - good control - Continue current medication. 4. Obstructive sleep apnea syndrome - ICD9: 327.23, ICD10: G47.33 - uses bipap. Benefiting from hits use. Sees Dr. Paul. 5. Actinic keratosis - ICD9: 702.0, ICD10: L57.0 - stable 6. Age-related osteoporosis without current pathological fracture - ICD9: 733.01, ICD10: M81.0 - not following bone density due to age. 7. Secondary pulmonary arterial hypertension (HCC) - ICD9: 416.8, ICD10: I27.21 - per cardio/pulmonary 8. Malignant neoplasm of left female breast, unspecified estrogen receptor status, unspecified siteof breast (HCC) - ICD9: 174.9, ICD10: C50.912 - per surgery. Ethan Donald MD documented in this encounterMercy Health03-17-2023 Miscellaneous Notes* Telephone Encounter - Toshia Nassar LPN - 08/04/2022 9:21 AM EDT Maggy from [facility] calling patient is there for lab work, they have no orders. Printed Lipid, TSH, BMP order and faxed to [phone] as requested. documented in this encounterMercy Health03-16-2023 History of Present illness Narrative* Chino Ambrose MD - 08/03/2022 11:24 AM EDT FOLLOW UP VISIT - POST OP BREAST CANCER NAME: Sydney Forrest Pilo [facility] NO.: [id number] DATE OF SERVICE: August 03, 2022 : 1935 REFERRING PHYSICIAN: Ethan Donald MD Sydney is a patient I am following for left sided breast cancer. The patient is a 86 year old female with a complaint of a palpable breast mass. The patient notes amass in the central portion of her left breast. The patient has noticed this mass for some time. The patient had a mammogram and ultrasound on March 15, 2022 which demonstrated: There is a 6 cm irregular mass in the left breast at 12 o'clock anterior depth. This correlates as palpated. There is nipple retraction associated with the mass. No other significant masses, calcifications, or other findings are seen in either breast. IMPRESSION: HIGHLY SUGGESTIVE OF MALIGNANCY - APPROPRIATE ACTION SHOULD BE TAKEN The 6 cm irregular mass in the left breast resembles carcinoma and is highly suggestive of malignancy. An ultrasound guided biopsy is recommended. LIMITED ULTRASOUND OF RIGHT BREAST AND LIMITED ULTRASOUND OF LEFT BREAST AND AXILLA: 03/15/2022 RESULT: Comparison is made to exams dated: 08/24/2014 mammogram and 08/18/2011 mammogram - [facility]. Color flow and real-time ultrasound of the right breast and color flow and real-time ultrasound of the left breast 12 o'clock, retroareolar, and axilla regions were performed. Aj scale images of the real-time examination were reviewed. There is 4.7 cm x 4.2 cm x 4.4 cm irregular mass in the left breast at 12 o'clock anterior depth 2 cm from the nipple. This irregular mass is hypoechoic. This correlates as palpated and with mammography findings. There also is a lymph node with focal cortical thickening in the left axillary tail. IMPRESSION: HIGHLY SUGGESTIVE OF MALIGNANCY - APPROPRIATE ACTION SHOULD BE TAKEN The 4.7 cm x 4.2 cm x 4.4 cm irregular mass in the left breast at 12 o'clock anterior depth resembles carcinoma and is highly suggestive of malignancy. An ultrasound guided biopsy or a surgical consult are recommended. The lymph node with focal cortical thickening in the left axillary tail is suspicious of malignancy. An ultrasound guided biopsy is recommended. She does not perform a self breast exam routinely. She notes thickening of the nipple. She notes nipple discharge. She notes no axillary masses. She notes no family history of breast problems. She notes no significant breast trauma or breast difficulties in the past. Her prior mammogram was in 2014 and was unremarkable The patient is being seen by me at the request of Dr. Ethan Donald MD for my opinion and advice regarding a left breast.. I performed left ultrasound-guided core breast biopsy and biopsy of suspicious axillary lymph node on March 22, 2022. Pathology returned as: NAL DIAGNOSIS A. Lymph node, left axillary, #1, ultrasound-guided core biopsy: ---Fragments of benign lymph node. B. 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 Breast Biomarkers RESULTS: Estrogen Receptor (ER) Positive 90 % Stain intensity: strong Internal controls: absent External controls: appropriately stained Progesterone Receptor (CA) Positive 1 % Stain intensity: moderate Internal controls: absent External controls: appropriately stained HER2 (ERBB2) IMMUNOHISTOCHEMISTRY ASSAY Interpretation: NEGATIVE for HER2 (ERBB2) Expression Score: 1+ The patient has multiple comorbidities including congestive heart failure replaced aortic valve andsomewhat limited performance status. I spoke with Dr. Bowen who felt that the patient will be a poor candidate for neoadjuvant treatment and given the fact that the lymph node was negative we would elect to proceed with definitive surgical intervention including sentinel lymph node biopsy. Given the size of the tumor we felt obtaining a PET CT scan to assess for metastatic disease even in the face of a negative axillary lymph node core biopsy was reasonable. The patient returned today for results of biopsy. She had anticipated this would be breast cancer. We extensively discussed her diagnosis and at the last visit discussed her surgical options including breast conservation surgical procedures, mastectomy without reconstruction and mastectomy with reconstruction. The patient has elected to undergo a left side possible needle localization biopsy/lumpectomy with sentinel lymph node biopsy with possible axillary dissection. The patient is being seen by me today at the request of Dr. Ethan Donald MD for my opinion and advice regarding locally advanced left breast cancer. I performed a left large lumpectomy/partial mastectomy with sentinel lymph node injection and biopsy on May 03, 2022. The pathology demonstrated: FINAL DIAGNOSIS A. Left breast, lumpectomy: - Invasive ductal carcinoma, see comment and synoptic report. - Seborrheic keratosis. - Two clips identified. B. Left sentinel lymph node, #1, excision: - 2 lymph nodes, negative for metastatic carcinoma (0/2). - Biopsy site identified. C. Left sentinel lymph node, cold node, out at 1336, excision: - 1 lymph node, negative for metastatic carcinoma (0/1). D. Left sentinel lymph node #2, excision: - 1 lymph node, negative for metastatic carcinoma (0/1). MARGINS Margin Status for Invasive Carcinoma All margins negative for invasive carcinoma Distance from Invasive Carcinoma to Closest Margin 10 mm Closest Margin(s) to Invasive Carcinoma Posterior REGIONAL LYMPH NODES Regional Lymph Node Status All regional lymph nodes negative for tumor Total Number of Lymph Nodes Examined (sentinel and non-sentinel) 4 Number of [place] Nodes Examined 4 PATHOLOGIC STAGE CLASSIFICATION (pTNM, AJCC 8th Edition) Reporting of pT, pN, and (when applicable) pM categories is based on information available to the pathologist at the time the report is issued. As per the AJCC (Chapter 1, 8th Ed.) it is the managingphysician s responsibility to establish the final pathologic stage based upon all pertinent information, including but potentially not limited to this pathology report. pT Category pT3 Regional Lymph Nodes Modifier (sn): [place] node(s) evaluated. pN Category pN0 Breast Biomarker Testing Performed on Previous Biopsy Estrogen Receptor (ER) Status Positive (greater than 10% of cells demonstrate nuclear positivity) Percentage of Cells with Nuclear Positivity 90 % Breast Biomarker Testing Performed on Previous Biopsy Sydney notes minimal pain. Post operative pain has been well controlled. The patient denies nausea. The patient`s appetite has been good. No drains were placed. Recommended the patient be referred to oncology for consideration of estrogen suppression given herER status but agreed that radiation therapy or chemotherapy would not be indicated given her medical comorbidities age and her personal opinion. The patient initially declined referral to oncology and stated she would likely not take estrogen suppression therapy. She returns today for follow-up. She had good range of motion and no complaints at her incision sites. VITALS: Blood pressure 110/64, pulse 65, temperature 36.9 C (98.5 F), height 157.5 cm (5' 2), weight 69.3 kg (152 lb 12.8 oz), SpO2 92 %. On examination, the left skin incision is clean, dry, and intact. The axillary portion of the incision is clean, dry and intact. The wounds are well-healed. Assessment IMPRESSION: Status Post left partial mastectomy with sentinel lymph node biopsy for left invasive breast cancer. PLAN: Sydney may return to regular activities as tolerated with the exception of no heavy lifting. .she should continue her arm range of motion exercises. The patient may now drive as long as she is no longer taking narcotic pain medication. If she notes any difficulties, she should contact me immediately. I plan to return in 6 months for follow-up evaluation. I recommended she did have bilateral mammograms in the late summer fall since she has not had mammograms before. I discussed with her there is a significant risk of recurrence given the size of the tumor and explained I thought mammograms were a good idea given the fact that she got into the trouble with a very large mass in the first place. Diagnoses: (C50.912, Z17.0) Malignant neoplasm of left breast in female, estrogen receptor positive, unspecified site of breast (HCC) (primary encounter diagnosis) Return to Clinic: The patient is instructed to follow-up with me in 6 months with mammogram prior to that visit. Chino Ambrose MD documented in this encounterMercy Health03-10-2023 Miscellaneous Notes* Telephone Encounter - John Reyes LPN - 07/28/2022 2:45 PM EST Patient notified. * Telephone Encounter - Ethan Donald MD - 07/28/2022 1:18 PM EST Ordered. * Telephone Encounter - Luz Elena Duvall - 07/28/2022 12:06 PM EST Patient calling asking if Dr. Donald would like lab draw prior to 08/14 appointment. Please advise andcall patient, ok to leave detailed message. documented in this encounterMercy Health01-17-2023 Miscellaneous Notes* Telephone Encounter - Cecille Hanley LPN - 06/06/2022 9:36 AM EST Patient called stated weighed her option and considering her age has decided not the take the Tamoxifen. FYI documented in this encounterMercy Health01-12-2023 History of Present illness Narrative* Chino Ambrose MD - 06/01/2022 7:34 PM EST FOLLOW UP VISIT - POST OP BREAST CANCER NAME: Sydney Daigle [facility] NO.: [id number] DATE OF SERVICE: June 01, 2022 : 1935 REFERRING PHYSICIAN: Ethan Donald MD Sydney is a patient I am following for left sided breast cancer. The patient is a 86 year old female with a complaint of a palpable breast mass. The patient notes amass in the central portion of her left breast. The patient has noticed this mass for some time. The patient had a mammogram and ultrasound on March 15, 2022 which demonstrated: There is a 6 cm irregular mass in the left breast at 12 o'clock anterior depth. This correlates as palpated. There is nipple retraction associated with the mass. No other significant masses, calcifications, or other findings are seen in either breast. IMPRESSION: HIGHLY SUGGESTIVE OF MALIGNANCY - APPROPRIATE ACTION SHOULD BE TAKEN The 6 cm irregular mass in the left breast resembles carcinoma and is highly suggestive of malignancy. An ultrasound guided biopsy is recommended. LIMITED ULTRASOUND OF RIGHT BREAST AND LIMITED ULTRASOUND OF LEFT BREAST AND AXILLA: 03/15/2022 RESULT: Comparison is made to exams dated: 08/24/2014 mammogram and 08/18/2011 mammogram - [facility]. Color flow and real-time ultrasound of the right breast and color flow and real-time ultrasound of the left breast 12 o'clock, retroareolar, and axilla regions were performed. Aj scale images of the real-time examination were reviewed. There is 4.7 cm x 4.2 cm x 4.4 cm irregular mass in the left breast at 12 o'clock anterior depth 2 cm from the nipple. This irregular mass is hypoechoic. This correlates as palpated and with mammography findings. There also is a lymph node with focal cortical thickening in the left axillary tail. IMPRESSION: HIGHLY SUGGESTIVE OF MALIGNANCY - APPROPRIATE ACTION SHOULD BE TAKEN The 4.7 cm x 4.2 cm x 4.4 cm irregular mass in the left breast at 12 o'clock anterior depth resembles carcinoma and is highly suggestive of malignancy. An ultrasound guided biopsy or a surgical consult are recommended. The lymph node with focal cortical thickening in the left axillary tail is suspicious of malignancy. An ultrasound guided biopsy is recommended. She does not perform a self breast exam routinely. She notes thickening of the nipple. She notes nipple discharge. She notes no axillary masses. She notes no family history of breast problems. She notes no significant breast trauma or breast difficulties in the past. Her prior mammogram was in 2014 and was unremarkable The patient is being seen by me at the request of Dr. Ethan Donald MD for my opinion and advice regarding a left breast.. I performed left ultrasound-guided core breast biopsy and biopsy of suspicious axillary lymph node on March 22, 2022. Pathology returned as: NAL DIAGNOSIS A. Lymph node, left axillary, #1, ultrasound-guided core biopsy: ---Fragments of benign lymph node. B. 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 Breast Biomarkers RESULTS: Estrogen Receptor (ER) Positive 90 % Stain intensity: strong Internal controls: absent External controls: appropriately stained Progesterone Receptor (CA) Positive 1 % Stain intensity: moderate Internal controls: absent External controls: appropriately stained HER2 (ERBB2) IMMUNOHISTOCHEMISTRY ASSAY Interpretation: NEGATIVE for HER2 (ERBB2) Expression Score: 1+ The patient has multiple comorbidities including congestive heart failure replaced aortic valve andsomewhat limited performance status. I spoke with Dr. Bowen who felt that the patient will be a poor candidate for neoadjuvant treatment and given the fact that the lymph node was negative we would elect to proceed with definitive surgical intervention including sentinel lymph node biopsy. Given the size of the tumor we felt obtaining a PET CT scan to assess for metastatic disease even in the face of a negative axillary lymph node core biopsy was reasonable. The patient returned today for results of biopsy. She had anticipated this would be breast cancer. We extensively discussed her diagnosis and at the last visit discussed her surgical options including breast conservation surgical procedures, mastectomy without reconstruction and mastectomy with reconstruction. The patient has elected to undergo a left side possible needle localization biopsy/lumpectomy with sentinel lymph node biopsy with possible axillary dissection. The patient is being seen by me today at the request of Dr. Ethan Donald MD for my opinion and advice regarding locally advanced left breast cancer. I performed a left large lumpectomy/partial mastectomy with sentinel lymph node injection and biopsy on May 03, 2022. The pathology demonstrated: FINAL DIAGNOSIS A. Left breast, lumpectomy: - Invasive ductal carcinoma, see comment and synoptic report. - Seborrheic keratosis. - Two clips identified. B. Left sentinel lymph node, #1, excision: - 2 lymph nodes, negative for metastatic carcinoma (0/2). - Biopsy site identified. C. Left sentinel lymph node, cold node, out at 1336, excision: - 1 lymph node, negative for metastatic carcinoma (0/1). D. Left sentinel lymph node #2, excision: - 1 lymph node, negative for metastatic carcinoma (0/1). MARGINS Margin Status for Invasive Carcinoma All margins negative for invasive carcinoma Distance from Invasive Carcinoma to Closest Margin 10 mm Closest Margin(s) to Invasive Carcinoma Posterior REGIONAL LYMPH NODES Regional Lymph Node Status All regional lymph nodes negative for tumor Total Number of Lymph Nodes Examined (sentinel and non-sentinel) 4 Number of [place] Nodes Examined 4 PATHOLOGIC STAGE CLASSIFICATION (pTNM, AJCC 8th Edition) Reporting of pT, pN, and (when applicable) pM categories is based on information available to the pathologist at the time the report is issued. As per the AJCC (Chapter 1, 8th Ed.) it is the managingphysician s responsibility to establish the final pathologic stage based upon all pertinent information, including but potentially not limited to this pathology report. pT Category pT3 Regional Lymph Nodes Modifier (sn): [place] node(s) evaluated. pN Category pN0 Breast Biomarker Testing Performed on Previous Biopsy Estrogen Receptor (ER) Status Positive (greater than 10% of cells demonstrate nuclear positivity) Percentage of Cells with Nuclear Positivity 90 % Breast Biomarker Testing Performed on Previous Biopsy Sydney notes minimal pain. Post operative pain has been well controlled. The patient denies nausea. The patient`s appetite has been good. No drains were placed. Recommended the patient be referred to oncology for consideration of estrogen suppression given herER status but agreed that radiation therapy or chemotherapy would not be indicated given her medical comorbidities age and her personal opinion. The patient initially declined referral to oncology and stated she would likely not take estrogen suppression therapy. VITALS: Blood pressure 102/76, pulse (!) 33, temperature 36.7 C (98.1 F), height 157.5 cm (5' 2), weight 67.9 kg (149 lb 12.8 oz), SpO2 94 %. On examination, the left skin incision is clean, dry, and intact. The axillary portion of the incision is clean, dry and intact. The leon were removed and Steri-Strips were applied Assessment IMPRESSION: Status Post left partial mastectomy with sentinel lymph node biopsy for left invasive breast cancer. PLAN: Sydney may return to regular activities as tolerated with the exception of no heavy lifting. .she should continue her arm range of motion exercises. The patient may now drive as long as she is no longer taking narcotic pain medication. If she notes any difficulties, she should contact me immediately. I plan to return in 2 months for follow-up evaluation. I have asked her to reconsider evaluation by oncology for estrogen suppression. She will consider her choices and contact the office if she wishes to be referred to oncology Diagnoses: (C50.912, Z17.0) Malignant neoplasm of left breast in female, estrogen receptor positive, unspecified site of breast (HCC) (primary encounter diagnosis) Return to Clinic: The patient is instructed to follow-up with me in 2 months Chino Ambrose MD documented in this encounterMercy Health01-03-2023 History of Present illness Narrative* Vivian Esposito PA-C - 05/23/2022 1:19 PM EST Patient presents with: Follow Up: Wound check Sydney Daigle is a 87 year old female who presents for wound check. Patient is s/p left large lumpectomy/partial mastectomy with sentinel lymph node injection and biopsy by Dr. Ambrose 05/03/22, pathreviewed at last visit. Patient and her sister have noted within the last few days she has had an area of worsening redness surrounding some of her leon. She is currently scheduled for staple removal with Dr. Ambrose on 06/01/22. Patient denies fever, chills, pain or incisional drainage. BP 114/72 Pulse 71 Temp 36.6 C (97.9 F) Ht 157.5 cm (5' 2) Wt 66.2 kg (146 lb) SpO2 92% BMI 26.70 kg/m General: patient is alert, cooperative, pleasant and in no acute distress On examination, +mild erythema surrounding leon along central aspect of incision. Several of thestaples were removed and steri-strips were applied Assessment: skin reaction to leon and possible early superficial skin infection Plan: [place] partially removed today Begin amoxicillin if redness spreads or not improving in the next 24 hours Keep appt for recheck with Dr. Ambrose for removal of remaining leon Call immediately if any new concerns Patient verbalized understanding of all above and agreed with the plan. Vivian Esposito PA-C documented in this encounterMercy Health12-29-2022 Instructions* Patient Instructions* Vivian Esposito PA-C - 05/18/2022 9:48 AM EST -Cleanse incision with antibacterial soap and water -Begin amoxicillin if redness not resolving in next 24 hours -Keep upcoming follow-up appointment, if new or worsening issues contact office immediately to be seen sooner documented in this encounterMercy Health12-28-2022 Miscellaneous Notes* Telephone Encounter - Cecille Hanley LPN - 05/17/2022 2:20 PM EST Called and spoke to patients sister Enedina, patient schedule for appointment with Vivian Mitchell tomorrow 05/18/22 for a wound check. * Telephone Encounter - Becki Hunter RN - 05/17/2022 1:44 PM EST Patient's sister Kristian calling to notify Dr. Ambrose's office of patient update. Patient's sister states patient is s/p left partial mastectomy by Dr. Ambrose, and has leon present. [place] scheduled to be removed at next appt on 06/01/21. Sister states pt has some redness and increased warmth above and below the area of leon and is concerned about a possible infection. is aware that Dr. Ambrose is out of the office but asking if the General Surgery office can advise patient or if message needs sent to pt's PCP? Call -Kristian at [phone]. Thank you. documented in this encounterMercy Health12-28-2022 Miscellaneous Notes* Telephone Encounter - Ivett Davis - 05/17/2022 11:01 AM EST Spoke with pt and she declined an appointment with at this time. Pt stated that she wanted to wait till she can speak with . That she has an appointment with him on 06/01/22. After that appointment she stated she would go from there. * Telephone Encounter - Yodit Marcano LPN - 05/17/2022 10:[address] Ambrose- She is an 87y.o. with poor performance status. I had spoken with Danie pre op. We were thinking remove the tumor and hopefully not do much else. My margins were good and her nodes were negative. I was thinking a estrogen blockade and not much else. Please at least get patient scheduled with Dr. Bowen. Yodit Marcano LPN * Telephone Encounter - Ethan Donald MD - 05/16/2022 4:22 PM EST I have no idea. I would defer on decision to Dr. Ambrose * Telephone Encounter - Vivian Contreras RN - 05/16/2022 4:11 PM EST Pt called in asking about referral to Dr Bowen. She reports that Dr Ambrose said she wouldn't need any radiation. I let Pt know I didn't see any order in for Dr Bowen, so I didn't know who it came from. Pt is asking Dr Donald if he placed the order or knows who did. Please call and advise. * Telephone Encounter - Thalia Landis Pss - 05/16/2022 3:59 PM EST Patient returned call stating she knows nothing of seeing anyone for Radiation. She requested to speak to PCP office. Patient transferred to triage. * Telephone Encounter - Ivett Davis - 05/16/2022 1:31 PM EST 1st attempt: LM When Pt returns call please schedule pt as directed below. Dr. Parker is DEPT: [facility] VISIT TYPE: NEW/CON UNKNOWN IF TREATED @ [facility] Once completed, please document in this encounter. Thank you! * Telephone Encounter - Danie Bowen DO - 05/16/2022 11:38 AM EST Patient will need a new patient appointment with me when schedule permits and with Dr. Parker. Diagnosis breast cancer. Danie Bowen DO documented in this encounterMercy Health12-22-2022 History of Present illness Narrative* Chino Ambrose MD - 05/11/2022 12:29 PM EST FOLLOW UP VISIT - POST OP BREAST CANCER NAME: Sydney Forrest [facility] NO.: [id number] DATE OF SERVICE: 05/11/2022 : 1935 REFERRING PHYSICIAN: Ethan Donald MD Sydney is a patient I am following for left sided breast cancer. The patient is a 86 year old female with a complaint of a palpable breast mass. The patient notes amass in the central portion of her left breast. The patient has noticed this mass for some time. The patient had a mammogram and ultrasound on March 15, 2022 which demonstrated: There is a 6 cm irregular mass in the left breast at 12 o'clock anterior depth. This correlates as palpated. There is nipple retraction associated with the mass. No other significant masses, calcifications, or other findings are seen in either breast. IMPRESSION: HIGHLY SUGGESTIVE OF MALIGNANCY - APPROPRIATE ACTION SHOULD BE TAKEN The 6 cm irregular mass in the left breast resembles carcinoma and is highly suggestive of malignancy. An ultrasound guided biopsy is recommended. LIMITED ULTRASOUND OF RIGHT BREAST AND LIMITED ULTRASOUND OF LEFT BREAST AND AXILLA: 03/15/2022 RESULT: Comparison is made to exams dated: 08/24/2014 mammogram and 08/18/2011 mammogram - [facility]. Color flow and real-time ultrasound of the right breast and color flow and real-time ultrasound of the left breast 12 o'clock, retroareolar, and axilla regions were performed. Aj scale images of the real-time examination were reviewed. There is 4.7 cm x 4.2 cm x 4.4 cm irregular mass in the left breast at 12 o'clock anterior depth 2 cm from the nipple. This irregular mass is hypoechoic. This correlates as palpated and with mammography findings. There also is a lymph node with focal cortical thickening in the left axillary tail. IMPRESSION: HIGHLY SUGGESTIVE OF MALIGNANCY - APPROPRIATE ACTION SHOULD BE TAKEN The 4.7 cm x 4.2 cm x 4.4 cm irregular mass in the left breast at 12 o'clock anterior depth resembles carcinoma and is highly suggestive of malignancy. An ultrasound guided biopsy or a surgical consult are recommended. The lymph node with focal cortical thickening in the left axillary tail is suspicious of malignancy. An ultrasound guided biopsy is recommended. She does not perform a self breast exam routinely. She notes thickening of the nipple. She notes nipple discharge. She notes no axillary masses. She notes no family history of breast problems. She notes no significant breast trauma or breast difficulties in the past. Her prior mammogram was in 2014 and was unremarkable The patient is being seen by me at the request of Dr. Ethan Donald MD for my opinion and advice regarding a left breast.. I performed left ultrasound-guided core breast biopsy and biopsy of suspicious axillary lymph node on March 22, 2022. Pathology returned as: NAL DIAGNOSIS A. Lymph node, left axillary, #1, ultrasound-guided core biopsy: ---Fragments of benign lymph node. B. 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 Breast Biomarkers RESULTS: Estrogen Receptor (ER) Positive 90 % Stain intensity: strong Internal controls: absent External controls: appropriately stained Progesterone Receptor (CA) Positive 1 % Stain intensity: moderate Internal controls: absent External controls: appropriately stained HER2 (ERBB2) IMMUNOHISTOCHEMISTRY ASSAY Interpretation: NEGATIVE for HER2 (ERBB2) Expression Score: 1+ The patient has multiple comorbidities including congestive heart failure replaced aortic valve andsomewhat limited performance status. I spoke with Dr. Bowen who felt that the patient will be a poor candidate for neoadjuvant treatment and given the fact that the lymph node was negative we would elect to proceed with definitive surgical intervention including sentinel lymph node biopsy. Given the size of the tumor we felt obtaining a PET CT scan to assess for metastatic disease even in the face of a negative axillary lymph node core biopsy was reasonable. The patient returned today for results of biopsy. She had anticipated this would be breast cancer. We extensively discussed her diagnosis and at the last visit discussed her surgical options including breast conservation surgical procedures, mastectomy without reconstruction and mastectomy with reconstruction. The patient has elected to undergo a left side possible needle localization biopsy/lumpectomy with sentinel lymph node biopsy with possible axillary dissection. The patient is being seen by me today at the request of Dr. Ethan Donald MD for my opinion and advice regarding locally advanced left breast cancer. I performed a left large lumpectomy/partial mastectomy with sentinel lymph node injection and biopsy on May 03, 2022. The pathology demonstrated: FINAL DIAGNOSIS A. Left breast, lumpectomy: - Invasive ductal carcinoma, see comment and synoptic report. - Seborrheic keratosis. - Two clips identified. B. Left sentinel lymph node, #1, excision: - 2 lymph nodes, negative for metastatic carcinoma (0/2). - Biopsy site identified. C. Left sentinel lymph node, cold node, out at 1336, excision: - 1 lymph node, negative for metastatic carcinoma (0/1). D. Left sentinel lymph node #2, excision: - 1 lymph node, negative for metastatic carcinoma (0/1). MARGINS Margin Status for Invasive Carcinoma All margins negative for invasive carcinoma Distance from Invasive Carcinoma to Closest Margin 10 mm Closest Margin(s) to Invasive Carcinoma Posterior REGIONAL LYMPH NODES Regional Lymph Node Status All regional lymph nodes negative for tumor Total Number of Lymph Nodes Examined (sentinel and non-sentinel) 4 Number of [place] Nodes Examined 4 PATHOLOGIC STAGE CLASSIFICATION (pTNM, AJCC 8th Edition) Reporting of pT, pN, and (when applicable) pM categories is based on information available to the pathologist at the time the report is issued. As per the AJCC (Chapter 1, 8th Ed.) it is the managingphysician s responsibility to establish the final pathologic stage based upon all pertinent information, including but potentially not limited to this pathology report. pT Category pT3 Regional Lymph Nodes Modifier (sn): [place] node(s) evaluated. pN Category pN0 Breast Biomarker Testing Performed on Previous Biopsy Estrogen Receptor (ER) Status Positive (greater than 10% of cells demonstrate nuclear positivity) Percentage of Cells with Nuclear Positivity 90 % Breast Biomarker Testing Performed on Previous Biopsy Sydney notes minimal pain. Post operative pain has been well controlled. The patient denies nausea. The patient`s appetite has been good. No drains were placed. VITALS: Blood pressure 126/78, pulse 72, temperature 37 C (98.6 F), weight 66.5 kg (146 lb 9.6 oz),SpO2 96 %. On examination, the left skin incision is clean, dry, and intact. The axillary portion of the incision is clean, dry and intact. The leon are in place. There is some bruising along the incision. Assessment IMPRESSION: Status Post left partial mastectomy with sentinel lymph node biopsy for left invasive breast cancer. PLAN: Sydney may return to regular activities as tolerated with the exception of no heavy lifting. .she should continue her arm range of motion exercises. The patient may now drive as long as she is no longer taking narcotic pain medication. If she notes any difficulties, she should contact me immediately. I plan to return in 2 to 3 weeks for staple removal. Diagnoses: (C50.912, Z17.0) Malignant neoplasm of left breast in female, estrogen receptor positive, unspecified site of breast (HCC) (primary encounter diagnosis) Return to Clinic: The patient is instructed to follow-up with me in 2-3 weeks. Chino Ambrose MD documented in this encounter[facility]12-16-[facility]22 History of Present illness Narrative* Tracie Valdivia RN - 05/05/2022 10:53 AM EST TCM Home Visit Referral Source of Stratification: [facility] Hospital Admission Status: Discharged Readmission Risk Score: 10 ALEX Score: 7 Patient meets program referral criteria: No Patient does not qualify for High Risk TCM Home Visit program due to: Discharged home, does not meet program criteria TRANSITIONAL CARE MANAGEMENT (TCM) COMMUNITY MONITORING PROGRAM Provider Action/FYI: Spoke with patient who is doing well. Reports that she is doing really well. Her sister is helping her with care. Pt denies questions or concerns regarding medications, self care, and discharge instructions. Pt has follow up appointments in place and is agreeable with recommended plan of care. Follow up [facility] post op 05/11/22 PCP declines FU at this time. SUMMARY: Pt discharged from [facility] on 05/04/22. Admitted for: lumpectomy with SLNB Contact made with patient: Yes Hi my name is Tracie Valdivia RN and I am calling from the [facility] on behalf of your PCP,Ethan Donald MD I understand you were recently in the hospital so I am calling to check in with you to ensure you are feeling well now that you're home. May I ask you a few questions related to your hospital stay and well-being? Yes Contact with patient post discharge, spoke to patient. Patient identified by name and . Do you feel your health is BETTER, WORSE, or the SAME since leaving the hospital? Better ACTION TAKEN: Patient indicated symptoms are better or same, no action required. Continue outreach. MEDICATIONS: Many patients have questions or concerns about their medications once they are home. Do you have any questions about taking your medications or which medication you should be on? No Do you need any medication refills at this time, including any of the medications you might take only when needed? No ACTION TAKEN: No action required For RNs or Pharmacy completing outreach ONLY, was a medication review completed? Yes SOCIAL: We would like to make sure you have what you need so that your basics needs are met - including your personal safety, food, housing and medications. Would you like to speak with a social work steam clothes press operator to help give you support for any of these needs? No It can be normal to feel anxious or down during a time like this. Would you like to talk to a mental health professional about how you have been feeling? No ACTION TAKEN: No action taken DISCHARGE INTRUCTIONS: Your discharge instructions / After Visit Summary (AVS) are important in guiding you through the recovery process. Do you have any questions related to your discharge instructions? No Do you have all the necessary equipment and supplies at home? Yes ACTION TAKEN: No action required I would like to help you schedule a hospital follow-up virtual or telephone visit with your PCP. This is a great way for you to connect with your provider to ensure you have safely transitioned home.If you are agreeable, I will send your request to a warp hauler who will contact and assist you with that appointment. This will give you an opportunity to ask any questions or address any concerns youmay have with your PCP. Inform the patient that if they have any questions or concerns prior to that appointment, to call their PCP's office right away. ACTION TAKEN: No action required, patient declines appointment. Your doctor would like us to remind you of the recommendations regarding the coronavirus (Covid19) outbreak: Avoid public places as much as possible. Avoid close contact (within 6 feet) with others you don t live with, especially if they are sick. Stay home if you are sick. Wash your hands regularly for at least 20 seconds with soap and water. Wear a cloth mask in public places to help reduce community spread. Do not go to your Doctor s office unless instructed to do so. For any non- emergency symptoms, call your Doctor s office to get instructions on how to manage (we might recommend a telephone or virtualvisit). For emergency symptoms, proceed to Emergency Department as usual but inform them of cough and fever symptoms [place] if present (or call on the way if possible). documented in this encounterMercy Health12-15-2022 NoteHNO ID: [id number] Author: Irina De Anda RN Service: ? Author Type: Registered Nurse Type: Nursing Progress Note Filed: 05/03/2022 10:31 PM Note Text: Other: 2230 pt's BP 100/50 manually, denies lightheadedness/dizziness. Page to [facility]12-14-2022 NoteCOVID 19 RESULT: SARS-CoV-2 (Agent of COVID-19) Not Detected by RT-PCR or equivalent method. This test has been authorized by FDA under an Emergency Use Authorization (EUA). INFLUENZA A PCR: Negative for Influenza A by RT-PCR INFLUENZA B PCR: Negative for Influenza B by RT-PCR RSV PCR: Negative for Respiratory Syncytial Virus (RSV) by PCRLos Angeles HospitalComment on above:Performed By: #### [id number] ####[facility]ORATORYCLIA [id number] [address] [id number] NoteHNO ID: [id number] Author: Reema Wilkins RN Service: ? Author Type: Registered Nurse Type: Nursing Progress Note Filed: 05/03/2022 4:31 PM Note Text: Speaking with pt and sister, pt wears 02 2l and bipap at [facility] 05-03-2022 NoteHNO ID: [id number] Author: Bimal Mcgrath APRN.CRNA Service: Anesthesiology Author Type: Nurse Detective Automobile Section Type: Anesthesia Procedure Notes Filed: 05/03/2022 1:25 PM Note Text: ANESTHESIOLOGY PROCEDURE NOTE Airway General Information Procedure Start Time/Medication Administration: 05/03/2022 12:54 PM Patient location during procedure: OR Timeout Performed Pre-procedure: timeout performed Consent Obtained: Yes Patient identity confirmed: arm band and care steam clothes 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 operator Staffing HUMAN DEVELOPMENT PROFESSOR: Bimal Mcgrath APRN.CRNA Indications and Patient Condition Indications for airway management: anesthesia Preoxygenated: yes anesthesia circuit Method: sleep Cricoid Pressure: No Manual In-Line Stabilization: No Difficult Mask: No Final Airway Details Final airway type: supraglottic airway Number of attempts at approach: 1 Final Supraglottic Airway: i-gel Size 4 Seal Adequate: yes Failed airway: no Unrecognized esophageal intubation: no Airway not difficult SIGNATURE: Bimal Mcgrath APRN.CRNA PATIENT NAME: Sydney Daigle DATE: May 03, 2022 TIME: 1:24 PM CSN: [id number] History of Past illness Narrative* Problem Noted Date Resolved Date Hypoxia 05/03/2022 05/04/2022 Aortic valve stenosis, moderate 08/19/2010 12/05/2017 Anemia 08/19/2010 08/28/2016 Anemia due to GI blood loss 08/19/201008/19 Hyperparathyroidism 12/05/2017 documented as of this encounter (statuses as of 05/05/2022) [facility] of Past illness Narrative* Problem Noted Date Resolved Date Hypoxia 05/03/2022 05/04/2022 Aortic valve stenosis, moderate 08/19/2010 12/05/2017 Anemia 08/19/2010 08/28/2016 Anemia due to GI blood loss 08/19/201008/19 Hyperparathyroidism 12/05/2017 documented as of this encounter (statuses as of 05/12/2022) [facility] History of Past illness Narrative* Problem Noted Date Resolved Date Hypoxia 05/03/2022 05/04/2022 Aortic valve stenosis, moderate 08/19/2010 12/05/2017 Anemia 08/19/2010 08/28/2016 Anemia due to GI blood loss 08/19/201008/19 Hyperparathyroidism 12/05/2017 documented as of this encounter (statuses as of 05/22/2022) [facility] History of Past illness Narrative* Problem Noted Date Resolved Date Hypoxia 05/03/2022 05/04/2022 Aortic valve stenosis, moderate 08/19/2010 12/05/2017 Anemia 08/19/2010 08/28/2016 Anemia due to GI blood loss 08/19/201008/19 Hyperparathyroidism 12/05/2017 documented as of this encounter (statuses as of 05/23/2022) [address]14-2022 History of Past illness Narrative* Problem Noted Date Resolved Date Hypoxia 05/03/2022 05/04/2022 Aortic valve stenosis, moderate 08/19/2010 12/05/2017 Anemia 08/19/2010 08/28/2016 Anemia due to GI blood loss 08/19/201008/19 Hyperparathyroidism 12/05/2017 documented as of this encounter (statuses as of 05/25/2022) [facility] of Past illness Narrative* Problem Noted Date Resolved Date Hypoxia 05/03/2022 05/04/2022 Aortic valve stenosis, moderate 08/19/2010 12/05/2017 Anemia 08/19/2010 08/28/2016 Anemia due to GI blood loss 08/19/201008/19 Hyperparathyroidism 12/05/2017 documented as of this encounter (statuses as of 06/02/2022) [facility] of Past illness Narrative* Problem Noted Date Resolved Date Hypoxia 05/03/2022 05/04/2022 Aortic valve stenosis, moderate 08/19/2010 12/05/2017 Anemia 08/19/2010 08/28/2016 Anemia due to GI blood loss 08/19/201008/19 Hyperparathyroidism 12/05/2017 documented as of this encounter (statuses as of 07/21/2022) [facility] History of Past illness Narrative* Problem Noted Date Resolved Date Hypoxia 05/03/2022 05/04/2022 Aortic valve stenosis, moderate 08/19/2010 12/05/2017 Anemia 08/19/2010 08/28/2016 Anemia due to GI blood loss 08/19/201008/19 Hyperparathyroidism 12/05/2017 documented as of this encounter (statuses as of 07/28/2022) [address]14-2022 History of Past illness Narrative* Problem Noted Date Resolved Date Hypoxia 05/03/2022 05/04/2022 Aortic valve stenosis, moderate 08/19/2010 12/05/2017 Anemia 08/19/2010 08/28/2016 Anemia due to GI blood loss 08/19/201008/19 Hyperparathyroidism 12/05/2017 documented as of this encounter (statuses as of 08/04/2022) [address]14-2022 History of Past illness Narrative* Problem Noted Date Resolved Date Hypoxia 05/03/2022 05/04/2022 Aortic valve stenosis, moderate 08/19/2010 12/05/2017 Anemia 08/19/2010 08/28/2016 Anemia due to GI blood loss 08/19/201008/19 Hyperparathyroidism 12/05/2017 documented as of this encounter (statuses as of 08/04/2022) [facility] of Past illness Narrative* Problem Noted Date Resolved Date Hypoxia 05/03/2022 05/04/2022 Aortic valve stenosis, moderate 08/19/2010 12/05/2017 Anemia 08/19/2010 08/28/2016 Anemia due to GI blood loss 08/19/201008/19 Hyperparathyroidism 12/05/2017 documented as of this encounter (statuses as of 08/14/2022) [address]-2022 History of Past illness Narrative* Problem Noted Date Resolved Date Hypoxia 05/03/2022 05/04/2022 Aortic valve stenosis, moderate 08/19/2010 12/05/2017 Anemia 08/19/2010 08/28/2016 Anemia due to GI blood loss 08/19/201008/19 Hyperparathyroidism 12/05/2017 documented as of this encounter (statuses as of 09/08/2022) [address]22 History of Past illness Narrative* Problem Noted Date Diagnosed Date Resolved Date Hypoxia 05/03/2022 05/04/2022 Aortic valve stenosis, moderate 08/19/2010 12/05/2017 Anemia 08/19/2010 08/28/2016 Anemia due to GI blood loss 08/19/2010 08/28/2016 Hyperparathyroidism 12/06/19 18 documented as of this encounter (statuses as of 02/09/2023) [address]-2022 History of Past illness Narrative* Problem Noted Date Diagnosed Date Resolved Date Hypoxia 05/03/2022 05/04/2022 Aortic valve stenosis, moderate 08/19/2010 12/05/2017 Anemia 08/19/2010 08/28/2016 Anemia due to GI blood loss 08/19/2010 08/28/2016 Hyperparathyroidism 12/06/19 18 documented as of this encounter (statuses as of 02/12/2023) [facility] illness Narrative* Problem Noted Date Diagnosed Date Resolved Date Hypoxia 05/03/2022 05/04/2022 Aortic valve stenosis, moderate 08/19/2010 12/05/2017 Anemia 08/19/2010 08/28/2016 Anemia due to GI blood loss 08/19/2010 08/28/2016 Hyperparathyroidism 12/06/19 18 documented as of this encounter (statuses as of 02/13/2023) [facility] of [facility] illness Narrative* Problem Noted Date Diagnosed Date Resolved Date Hypoxia 05/03/2022 05/04/2022 Pressure injury of ankle, stage 2 02/14/2022 02/15/2023 Aortic valve stenosis, moderate 08/19/2010 12/05/2017 Anemia 08/19/2010 08/28/2016 Anemia due to GI blood loss 08/19/2010 08/28/2016 Hyperparathyroidism 12/06/19 18 documented as of this encounter (statuses as of 02/16/2023) [facility] Narrative* Problem Noted Date Diagnosed Date Resolved Date Hypoxia 05/03/2022 05/04/2022 Pressure injury of ankle, stage 2 02/14/2022 02/15/2023 Aortic valve stenosis, moderate 08/19/2010 12/05/2017 Anemia 08/19/2010 08/28/2016 Anemia due to GI blood loss 08/19/2010 08/28/2016 Hyperparathyroidism 12/06/19 18 documented as of this encounter (statuses as of 03/21/2023) [facility] of Past illness Narrative* Problem Noted Date Diagnosed Date Resolved Date Hypoxia 05/03/2022 05/04/2022 Pressure injury of ankle, stage 2 02/14/2022 02/15/2023 Aortic valve stenosis, moderate 08/19/2010 12/05/2017 Anemia 08/19/2010 08/28/2016 Anemia due to GI blood loss 08/19/2010 08/28/2016 Hyperparathyroidism 12/06/19 18 documented as of this encounter (statuses as of 03/21/2023) [facility] of [facility] illness Narrative* Problem Noted Date Diagnosed Date Resolved Date Hypoxia 05/03/2022 05/04/2022 Pressure injury of ankle, stage 2 02/14/2022 02/15/2023 Aortic valve stenosis, moderate 08/19/2010 12/05/2017 Anemia 08/19/2010 08/28/2016 Anemia due to GI blood loss 08/19/2010 08/28/2016 Hyperparathyroidism 12/06/19 18 documented as of this encounter (statuses as of 04/05/2023) [facility] of [facility] illness Narrative* Problem Noted Date Diagnosed Date Resolved Date Hypoxia 05/03/2022 05/04/2022 Pressure injury of ankle, stage 2 02/14/2022 02/15/2023 Aortic valve stenosis, moderate 08/19/2010 12/05/2017 Anemia 08/19/2010 08/28/2016 Anemia due to GI blood loss 08/19/2010 08/28/2016 Hyperparathyroidism 12/06/19 18 documented as of this encounter (statuses as of 04/11/2023) [facility] Miscellaneous Notes* Telephone Encounter - Cecille Hanley LPN - 05/02/2022 9:49 AM EST Fax request for PET scan images to be pushed from [facility]. Report in scanned documents. Cecille Hanley LPN documented in this encounterMercy Health12-09-2022 Miscellaneous Notes* Telephone Encounter - Vivian Contreras RN - 04/28/2022 11:00 AM EST Pt called in and reports she had a really bad case of vertigo in November and pio to the ER and was prescribed Meclizine. She states she had another attack the other day and used the last of her pills. Pt was asking if the provider would send an order in for her to have on hand in case she gets vertigoagain. Please call and advise. Patient has been identified by name and date of : Yes Patient phones for refill(s): Requested Prescriptions Pending Prescriptions Disp Refills meclizine (ANTIVERT) 25 mg tab 30 tablet 0 Sig: Take 1 tablet by mouth every 6 hours as needed (dizziness). Date of last office visit in primary care: 02/14/22 Future visit: 08/14/22 Last 2 Encounter Wt Readings: Date: Wt: 04/21/2022 71.2 kg (157 lb) 03/30/2022 70.8 kg (156 lb) Previous labs/tests for medication: Blood Pressure: BUN (MG/DL) Date Value 08/19/2020 22 NA (mmol/L) Date Value 08/19/2020 143 Last 1 Encounter BP Readings: Date: BP: 04/21/2022 102/50 Liver Function: ALT (SGPT) (U/L) Date Value 08/19/2020 21 AST (SGOT) (U/L) Date Value 08/19/2020 24 Please advise. Thank you. Vivian Contreras RN documented in this encounterMercy Health12-07-2022 Miscellaneous Notes* Telephone Encounter - Kirsten Zarate LPN - 2022 9:42 AM EST Received last office visit from [facility]. Copy made for Kari Sidhu CNP and original sent to fabric machine operator to scan. Kirsten Zarate LPN * Telephone Encounter - Kirsten Zarate LPN - 2022 8:15 AM EST Fax request sent to [facility] requesting last office visit. Kirsten Zarate LPN * Telephone Encounter - Kirsten Zarate LPN - 2022 8:14 AM EST Images from the original note were not included. Kari Sidhu APRN.DANIEL Zarate LPN Can you request last OV from [facility], it doesn't appear finished in clinic sync. I can see last echo so just need OV. documented in this encounterMercy Health11-11-2022 Miscellaneous Notes* Telephone Encounter - Ethan Donald MD - 03/31/2022 5:21 PM EST Living will brought in. documented in this encounterMercy Health11-10-2022 History of Present illness Narrative* Chino Ambrose MD - 03/30/2022 10:35 AM EST HISTORY AND PHYSICAL - BREAST CANCER Sydney Daigle 1935 March 30, 2022 REFERRING PHYSICIAN: Self CHIEF COMPLAINT: BREAST CANCER - LEFT - INVASIVE DUCTAL CARCINOMA HPI: The patient is a 86 year old female with a complaint of a palpable breast mass. The patient notes a mass in the central portion of her left breast. The patient has noticed this mass for some time. The patient had a mammogram and ultrasound on March 15, 2022 which demonstrated: There is a 6 cm irregular mass in the left breast at 12 o'clock anterior depth. This correlates as palpated. There is nipple retraction associated with the mass. No other significant masses, calcifications, or other findings are seen in either breast. IMPRESSION: HIGHLY SUGGESTIVE OF MALIGNANCY - APPROPRIATE ACTION SHOULD BE TAKEN The 6 cm irregular mass in the left breast resembles carcinoma and is highly suggestive of malignancy. An ultrasound guided biopsy is recommended. LIMITED ULTRASOUND OF RIGHT BREAST AND LIMITED ULTRASOUND OF LEFT BREAST AND AXILLA: 03/15/2022 RESULT: Comparison is made to exams dated: 08/24/2014 mammogram and 08/18/2011 mammogram - [facility]. Color flow and real-time ultrasound of the right breast and color flow and real-time ultrasound of the left breast 12 o'clock, retroareolar, and axilla regions were performed. Aj scale images of the real-time examination were reviewed. There is 4.7 cm x 4.2 cm x 4.4 cm irregular mass in the left breast at 12 o'clock anterior depth 2 cm from the nipple. This irregular mass is hypoechoic. This correlates as palpated and with mammography findings. There also is a lymph node with focal cortical thickening in the left axillary tail. IMPRESSION: HIGHLY SUGGESTIVE OF MALIGNANCY - APPROPRIATE ACTION SHOULD BE TAKEN The 4.7 cm x 4.2 cm x 4.4 cm irregular mass in the left breast at 12 o'clock anterior depth resembles carcinoma and is highly suggestive of malignancy. An ultrasound guided biopsy or a surgical consult are recommended. The lymph node with focal cortical thickening in the left axillary tail is suspicious of malignancy. An ultrasound guided biopsy is recommended. She does not perform a self breast exam routinely. She notes thickening of the nipple. She notes nipple discharge. She notes no axillary masses. She notes no family history of breast problems. She notes no significant breast trauma or breast difficulties in the past. Her prior mammogram was in 2014 and was unremarkable The patient is being seen by me at the request of Dr. Ethan Donald MD for my opinion and advice regarding a left breast.. I performed left ultrasound-guided core breast biopsy and biopsy of suspicious axillary lymph node on March 22, 2022. Pathology returned as: NAL DIAGNOSIS A. Lymph node, left axillary, #1, ultrasound-guided core biopsy: ---Fragments of benign lymph node. B. 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 Breast Biomarkers RESULTS: Estrogen Receptor (ER) Positive 90 % Stain intensity: strong Internal controls: absent External controls: appropriately stained Progesterone Receptor (CA) Positive 1 % Stain intensity: moderate Internal controls: absent External controls: appropriately stained HER2 (ERBB2) IMMUNOHISTOCHEMISTRY ASSAY Interpretation: NEGATIVE for HER2 (ERBB2) Expression Score: 1+ The patient has multiple comorbidities including congestive heart failure replaced aortic valve andsomewhat limited performance status. I spoke with Dr. Bowen who felt that the patient will be a poor candidate for neoadjuvant treatment and given the fact that the lymph node was negative we would elect to proceed with definitive surgical intervention including sentinel lymph node biopsy. Given the size of the tumor we felt obtaining a PET CT scan to assess for metastatic disease even in the face of a negative axillary lymph node core biopsy was reasonable. The patient returned today for results of biopsy. She had anticipated this would be breast cancer. We extensively discussed her diagnosis and at the last visit discussed her surgical options including breast conservation surgical procedures, mastectomy without reconstruction and mastectomy with reconstruction. The patient has elected to undergo a left side possible needle localization biopsy/lumpectomy with sentinel lymph node biopsy with possible axillary dissection. The patient is being seen by me today at the request of Dr. Ethan Donald MD for my opinion and advice regarding locally advanced left breast cancer. 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) Other and unspecified hyperlipidemia Personal history of colonic polyps Colon polyps Renal stone 08/19/2010 Statin intolerance 07/29/2014 Unspecified disorders of calcium metabolism Unspecified functional disorder of intestine Unspecified hearing loss RIGHT EAR ONLY PAST SURGICAL HISTORY Procedure Laterality Date ADENOIDECTOMY PRIMARY <AGE 14 Adenoidectomy ANKLE SURGERY HX 07/09/2019 BX OF BREAST; INCISIONAL Left 03/22/2022 left axilla CATARACT EXTRACTION HX 03/18/2014 CHOLECYSTECTOMY Cholecystectomy COLONOSCOPY FLX DX W/COLLJ SPEC WHEN PFRMD 10/08/94,11/11/04 Colonoscopy-repeat in COLONOSCOPY FLX DX W/COLLJ SPEC WHEN PFRMD 04/03/2016 Colonoscopy COLSC FLX W/RMVL OF TUMOR POLYP LESION SNARE TQ 11/2004 Polpectomy, lg intestine ESOPHAGOGASTRODUODENOSCOPY TRANSORAL DIAGNOSTIC [facility] PARATHYROID TUMOR 2007 3 parathyroid glands removed LAPAROSCOPY SURG CHOLECYSTECTOMY 11/01/1990 Cholecystectomy, lap LEFT HEART CATH,PERCUTANEOUS 09/01/2011 Cardiac cath, L heart RENAL NDSC NEPHROS/PYELOSTOMY RMVL FB/CALCULUS 06/2010 Dr Hudson RIGHT HEART CATHETERIZATION 09/01/2011 Cardiac cath, R heart RPLCMT PROST AORTIC VALVE OPEN XCP HOMOGRF/STENT 05/06/2012 Aortic valve replacement THYROID FINE NEEDLE ASPIRATION 11/14/2004 TONSILLECTOMY PRIMARY/SECONDARY <AGE 14 Tonsillectomy XCAPSL CTRC RMVL INSJ IO LENS PROSTH W/O ECP Cataract Extraction with PC IOL Current Outpatient Medications Medication Sig Dispense Refill meclizine (ANTIVERT) 25 mg tab Take 25 mg by mouth three times daily. levothyroxine (SYNTHROID) 75 mcg tablet Take 1 tablet by mouth once daily. 90 tablet 3 potassium chloride ER (KLOR-CON M10) 10 mEq tablet Take 1 tablet by mouth twice daily. 180 tablet 3 Cholestyramine-Aspartame (PREVALITE) 4 gram powder Take 4 g by mouth once daily. furosemide (LASIX) 40 mg tablet Take 1 tablet by mouth twice daily. metoprolol succinate ER (TOPROL XL) 25 mg 24 hr tablet Take 1 tablet by mouth once daily. 30 [id number] Natalia-3 Fatty Acids, FISH OIL, (FISH OIL) 360-1,200 mg cap Take 1 capsule by mouth twice daily withmeals. ONE-A-DAY WOMENS FORMULA TAB Take one(1) tablet daily. 0 No current facility-administered medications for this visit. ALLERGIES: Aspirin, Niacin, Simvastatin, and Vicodin [Hydrocodone-Acetaminophen] PERSONAL HISTORY: Social History Tobacco Use Smoking status: Never Smokeless tobacco: Never Vaping Use Vaping Use: Never used Substance Use Topics Alcohol use: Yes Comment: SLIGHT Drug use: No FAMILY HISTORY: FAMILY HISTORY Problem Relation Age of Onset other (LIVER CIRRHOSIS) Mother Alzheimer's Disease Father REVIEW OF SYMPTOMS: General: The patient denies fatigue, denies weight loss, denies weight gain, denies feeling hot, and denies feelings of cold. Eyes: The patient denies glaucoma, NOTES eye injury/surgery, does not wear glasses or contacts. Ear/Nose/Throat: The patient denies allergies, denies hayfever, denies ear infections, and denies bloody noses. Cardiovascular: The patient denies chest pain, NOTES heart disease, NOTES high blood pressure,denies cardiac stent, denies prior heart attack, NOTES irregular heart beat, NOTES high cholesterol, denies poor circulation, denies heart failure, other cardiac issues, denies claudication, denies cold feet, denies peripheral arterial stent. Respiratory: The patient denies tuberculosis, denies pneumonia, denies frequent cough, denies pulmonary embolism, NOTES shortness of breath, and denies coughing up blood. Gastrointestinal: The patient denies difficulty swallowing, denies acid reflux, denies ulcers, denies vomiting, denies jaundice/hepatitis, denies gallbladder problems, denies black or tarry stools, denies hemorrhoids, denies bleeding from rectum, denies diverticulitis, denies constipation, NOTES diarrhea, denies loss of stool control, and denies hernias. Kidney/Bladder: The patient denies kidney stones, denies urine infections, and denies bloody urine. Skin: The patient denies a history of skin cancer, denies bleeding/changing moles, and denies a history of skin rash. Neurologic: The patient denies a history of epilepsy/convulsions, denies headaches, denies head/spinal injuries, and denies stroke/TIA. Psychiatric: The patient denies psychiatric medications, denies depression, and denies voices, denies substance abuse. Endocrine: The patient NOTES thyroid disorders, denies diabetes, and denies hormonal problems. Hematologic: The patient denies a history of bruising, denies bleeding, and denies anemia, denies blood clots. Infections: The patient NOTES a history of measles and mumps, denies rheumatic fever, and denies sexually transmitted diseases. Musculoskeletal: The patient denies back pain/injury, NOTES back problems, denies sciatica, denies knee/foot trouble, denies arthritis, or denies gout. PHYSICAL EXAMINATION: General: The patient is 86 year old female, well nourished, well hydrated in no acute distress. Thepatient is oriented to time, place, and person. VITALS: Blood pressure 120/50, pulse 71, temperature 36.7 C (98 F), height 157.5 cm (5' 2), zhouwz98.8 kg (156 lb), SpO2 94 %. Body mass index is 28.53 kg/m . HEENT: Normal cephalic, ataumatic, pupils are equally round, sclera are anicteric, mucous membranesare moist, oropharynx is clear. Neck has no masses, asymmetry or lymphadenopathy. Thyroid is unremarkable. Respiratory: Clear to auscultation and percussion. Normal respiratory excursion and pattern. Cardiac: Examination is regular rate and rhythm. Systolic Murmur - 2/6 none radiating, click Abdominal exam: Soft, nontender, with no palpable masses. No hepatosplenomegaly. No palpable hernias. Rectal exam: exam deferred Extremities: no clubbing, cyanosis or edema. No adenopathy. Breast: Visual inspection reveals no retractions, nipple inversion, or skin changes. Palpation of the right breast reveals no dominant or suspicious masses, but multiple benign-feeling nodules. Palpation of the left breast reveals the mass of concern at the central oclock position. The mass is approximately 5cm in size.. Axillary exam demonstrates no suspicious masses in the right axilla. There is a palpable mass in the left axilla. there is no nipple discharge expressed from either the left orright breast. LABORATORY VALUES: As Noted RADIOLOGIC STUDIES: As Noted Assessment IMPRESSION: BREAST CANCER - LEFT - INVASIVE DUCTAL CARCINOMA PLAN: I plan to perform a left side needle localization biopsy/lumpectomy with sentinel lymph node biopsy with possible axillary dissection. The planned surgical procedure was discussed extensively with the patient. The risks, benefits, anticipated outcomes and possible complications and alternatives were discussed. My staff has also explained the procedure in understandable terms and the patientwas given the option to take printed material concerning the planned procedure. The patient had theopportunity to ask questions concerning the planned procedure. The patient freely consents to the planned procedure. I have also ord3er a PET/CT scan Anticipated Surgical Procedure/ CPT Code: left possible in OR preoperative ultrasound guided needleplacement - [id number] LUMPECTOMY, WITH SENTINEL LYMPH NODE BIOPSY, Radiotracter identification - [id number], [id number], [id number], [id number], [id number] Anticipated Anesthetic: General Patient weight: Blood pressure 120/50, pulse 71, temperature 36.7 C (98 F), height 157.5 cm (5' 2), weight 70.8 kg (156 lb), SpO2 94 %. BMI: Body mass index is 28.53 kg/m . Planned antibiotic: Ancef 2gm IVPB rehabilitation services coordinator to OR SCDs needed: Yes Electrical Instrument Repairer Needed: Yes Pre Op Clearance: Cardiac Anticoagulation: No Diabetic: No Location: [place] Diagnoses: (C50.812, Z17.0) Malignant neoplasm of overlapping sites of left breast in female, estrogen receptor positive (HCC) (primary encounter diagnosis) Return to Clinic: The patient is instructed to follow-up with me in one week. Chino Ambrose MD [facility] Instructions* Patient Instructions* Belen Hairston RN - 03/22/2022 4:14 PM EDT The following instructions are important for you related to your office visit today with the [facility] General Surgeons. Instructions After OFFICE BASED BREAST BIOPSY Please do not take aspirin or other blood thinners for the next few days. After the procedure, Steri-Strips and a dressing will be placed on your small incision. The dressing may be removed in two tothree days after the procedure. The Steri-Strips should be left in place until they fall off. If you have bleeding from the biopsy site, hold pressure with a clean gauze. If the bleeding continues, contact our office immediately. I recommend taking Advil or Tylenol for the discomfort. You should wear a comfortable but somewhat tight fitting bra. If you have significant bruising, an ice packmay improve your discomfort. Tylenol & Ibuprofen can be taken for margarita Please make an appointment to return to our office in 1 week. If you note any additional difficulties, questions, or concerns, you should contact our office immediately @ [phone] and ask to be transferred to the General Surgery department. documented [facility]22 History of Present illness Narrative* Belen Hairston RN - 03/22/2022 3:46 PM EDT UNIVERSAL PROTOCOL / SAFETY CHECKLIST Procedure to be Performed: Left ultrasound guided core biopsy of breast and axillary lymph node Sign In: A Moment of CARE was completed. Personnel directly involved with the procedure wore the appropriate PPE (Personal Protective Equipment). Special equipment: RippleFunction core bx 12 guage Patient/Surrogate Stated/Verified: PATIENT VERIFIED(optional for EMERGENT procedures): Patient name, Date of , Relevant allergies, and The intended procedure Time Out Communication: Intended patient and procedure match the source documents. Consent documented and matches the intended procedure. Relevant labs, photos, and/or imaging studies have been reviewed. Correct side/site marked and visible. Medications required for procedure verified. No fire risk assessment and interventions applicable. Implant(s) inserted: Correct implant(s) confirmed including size and side., Expiration date(s) reviewed., and Ultra clip tissue marker Sign Out: SIGN OUT (optional for EMERGENT procedures): All specimen containers correctly labeled. All instruments, equipment, possible retained foreign bodies accounted for. Post-procedure follow-up management communicated and Plan of Care Visit completed when applicable. Belen Hairston RN * Chino Ambrose MD - 03/22/2022 3:38 PM EDT HISTORY AND PHYSICAL - BREAST COMPLAINT Sydney Daigle 1935 REFERRING PHYSICIAN: Ethan Donald MD CHIEF COMPLAINT: Left sided breast mass HPI: The patient is a 86 year old female with a complaint of a palpable breast mass. The patient notes a mass in the central portion of her left breast. The patient has noticed this mass for some time. The patient had a mammogram and ultrasound on March 15, 2022 which demonstrated: There is a 6 cm irregular mass in the left breast at 12 o'clock anterior depth. This correlates as palpated. There is nipple retraction associated with the mass. No other significant masses, calcifications, or other findings are seen in either breast. IMPRESSION: HIGHLY SUGGESTIVE OF MALIGNANCY - APPROPRIATE ACTION SHOULD BE TAKEN The 6 cm irregular mass in the left breast resembles carcinoma and is highly suggestive of malignancy. An ultrasound guided biopsy is recommended. LIMITED ULTRASOUND OF RIGHT BREAST AND LIMITED ULTRASOUND OF LEFT BREAST AND AXILLA: 03/15/2022 RESULT: Comparison is made to exams dated: 08/24/2014 mammogram and 08/18/2011 mammogram - [facility]. Color flow and real-time ultrasound of the right breast and color flow and real-time ultrasound of the left breast 12 o'clock, retroareolar, and axilla regions were performed. Aj scale images of the real-time examination were reviewed. There is 4.7 cm x 4.2 cm x 4.4 cm irregular mass in the left breast at 12 o'clock anterior depth 2 cm from the nipple. This irregular mass is hypoechoic. This correlates as palpated and with mammography findings. There also is a lymph node with focal cortical thickening in the left axillary tail. IMPRESSION: HIGHLY SUGGESTIVE OF MALIGNANCY - APPROPRIATE ACTION SHOULD BE TAKEN The 4.7 cm x 4.2 cm x 4.4 cm irregular mass in the left breast at 12 o'clock anterior depth resembles carcinoma and is highly suggestive of malignancy. An ultrasound guided biopsy or a surgical consult are recommended. The lymph node with focal cortical thickening in the left axillary tail is suspicious of malignancy. An ultrasound guided biopsy is recommended. She does not perform a self breast exam routinely. She notes thickening of the nipple. She notes nipple discharge. She notes no axillary masses. She notes no family history of breast problems. She notes no significant breast trauma or breast difficulties in the past. Her prior mammogram was in 2014 and was unremarkable The patient is being seen by me today at the request of Dr. Ethan Donald MD for my opinion and advice regarding a left breast.. 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) Other and unspecified hyperlipidemia Personal history of colonic polyps Colon polyps Renal stone 08/19/2010 Statin intolerance 07/29/2014 Unspecified disorders of calcium metabolism Unspecified functional disorder of intestine Unspecified hearing loss RIGHT EAR ONLY PAST SURGICAL HISTORY Procedure Laterality Date ADENOIDECTOMY PRIMARY <AGE 14 Adenoidectomy ANKLE SURGERY HX 07/09/2019 CATARACT EXTRACTION HX 03/18/14 CHOLECYSTECTOMY Cholecystectomy COLONOSCOPY FLX DX W/COLLJ SPEC WHEN PFRMD 10/08/94,11/11/04 Colonoscopy-repeat in -2009 COLONOSCOPY FLX DX W/COLLJ SPEC WHEN PFRMD 04/03/2016 Colonoscopy COLSC FLX W/RMVL OF TUMOR POLYP LESION SNARE TQ 11/2004 Polpectomy, lg intestine ESOPHAGOGASTRODUODENOSCOPY TRANSORAL DIAGNOSTIC 07/12/10 EGD inpt [facility] H-pylori is negative EXCISION PARATHYROID TUMOR 2006 3 parathyroid glands removed LAPAROSCOPY SURG CHOLECYSTECTOMY 11/01/90 Cholecystectomy, lap LEFT HEART CATH,PERCUTANEOUS 09/01/11 Cardiac cath, L heart RENAL NDSC NEPHROS/PYELOSTOMY RMVL FB/CALCULUS 06/2010 Dr Hudson RIGHT HEART CATHETERIZATION 09/01/11 Cardiac cath, R heart RPLCMT PROST AORTIC VALVE OPEN XCP HOMOGRF/STENT 05/06/12 Aortic valve replacement THYROID FINE NEEDLE ASPIRATION 11/14/04 TONSILLECTOMY PRIMARY/SECONDARY <AGE 14 Tonsillectomy XCAPSL CTRC RMVL INSJ IO LENS PROSTH W/O ECP Cataract Extraction with PC IOL Current Outpatient Medications Medication Sig Dispense Refill meclizine (ANTIVERT) 25 mg tab Take 25 mg by mouth three times daily. levothyroxine (SYNTHROID) 75 mcg tablet Take 1 tablet by mouth once daily. 90 tablet 3 potassium chloride ER (KLOR-CON M10) 10 mEq tablet Take 1 tablet by mouth twice daily. 180 tablet 3 furosemide (LASIX) 40 mg tablet Take 1 tablet by mouth twice daily. metoprolol succinate ER (TOPROL XL) 25 mg 24 hr tablet Take 1 tablet by mouth once daily. 30 Natalia-3 Fatty Acids, FISH OIL, (FISH OIL) 360-1,200 mg cap Take 1 capsule by mouth twice daily withmeals. ONE-A-DAY WOMENS FORMULA TAB Take one(1) tablet daily. 0 Cholestyramine-Aspartame (PREVALITE) 4 gram powder Take 4 g by mouth once daily. No current facility-administered medications for this visit. ALLERGIES: Aspirin, Niacin, Simvastatin, and Vicodin [Hydrocodone-Acetaminophen] PERSONAL HISTORY: Social History Tobacco Use Smoking status: Never Smokeless tobacco: Never Vaping Use Vaping Use: Never used Substance Use Topics Alcohol use: Yes Comment: SLIGHT Drug use: No FAMILY HISTORY: FAMILY HISTORY Problem Relation Age of Onset other (LIVER CIRRHOSIS) Mother Alzheimer's Disease Father REVIEW OF SYMPTOMS: The review of systems data was entered by the nurse and reviewed by pa Nursing Notes: Belen Hairston RN 03/22/2022 2:52 PM Signed REVIEW OF SYSTEMS: General: The patient denies fatigue, denies weight loss, denies weight gain, denies feeling hot, and denies feelings of cold. Eyes: The patient denies glaucoma, NOTES eye injury/surgery, does not wear glasses or contacts. Ear/Nose/Throat: The patient denies allergies, denies hayfever, denies ear infections, and denies bloody noses. Cardiovascular: The patient denies chest pain, NOTES heart disease, NOTES high blood pressure,denies cardiac stent, denies prior heart attack, NOTES irregular heart beat, NOTES high cholesterol, denies poor circulation, denies heart failure, other cardiac issues, denies claudication, denies cold feet, denies peripheral arterial stent. Respiratory: The patient denies tuberculosis, denies pneumonia, denies frequent cough, denies pulmonary embolism, NOTES shortness of breath, and denies coughing up blood. Gastrointestinal: The patient denies difficulty swallowing, denies acid reflux, denies ulcers, denies vomiting, denies jaundice/hepatitis, denies gallbladder problems, denies black or tarry stools, denies hemorrhoids, denies bleeding from rectum, denies diverticulitis, denies constipation, NOTES diarrhea, denies loss of stool control, and denies hernias. Kidney/Bladder: The patient denies kidney stones, denies urine infections, and denies bloody urine. Skin: The patient denies a history of skin cancer, denies bleeding/changing moles, and denies a history of skin rash. Neurologic: The patient denies a history of epilepsy/convulsions, denies headaches, denies head/spinal injuries, and denies stroke/TIA. Psychiatric: The patient denies psychiatric medications, denies depression, and denies voices, denies substance abuse. Endocrine: The patient NOTES thyroid disorders, denies diabetes, and denies hormonal problems. Hematologic: The patient denies a history of bruising, denies bleeding, and denies anemia, denies blood clots. Infections: The patient NOTES a history of measles and mumps, denies rheumatic fever, and denies sexually transmitted diseases. Musculoskeletal: The patient denies back pain/injury, NOTES back problems, denies sciatica, denies knee/foot trouble, denies arthritis, or denies gout. When was patient's last Mammogram screening? 2021 Last Colonoscopy: 2015 Belen Hairston RN PHYSICAL EXAMINATION: General: The patient is 86 year old female, well nourished, well hydrated in no acute distress. Thepatient is oriented to time, place, and person. VITALS: Blood pressure 130/72, pulse 77, temperature 37.1 C (98.7 F), height 157.5 cm (5' 2), weight 71.9 kg (158 lb 9.6 oz), SpO2 91 %. Body mass index is 29.01 kg/m . HEENT: Normal cephalic, ataumatic, pupils are equally round, sclera are anicteric, mucous membranesare moist, oropharynx is clear. Neck has no masses, asymmetry or lymphadenopathy. Thyroid is unremarkable. Respiratory: Clear to auscultation and percussion. Normal respiratory excursion and pattern. Cardiac: Examination is regular rate and rhythm. Systolic Murmur - 2/6 none radiating, click Abdominal exam: Soft, nontender, with no palpable masses. No hepatosplenomegaly. No palpable hernias. Rectal exam: exam deferred Extremities: no clubbing, cyanosis or edema. No adenopathy. Breast: Visual inspection reveals no retractions, nipple inversion, or skin changes. Palpation of the right breast reveals no dominant or suspicious masses, but multiple benign-feeling nodules. Palpation of the left breast reveals the mass of concern at the central oclock position. The mass is approximately 5cm in size.. Axillary exam demonstrates no suspicious masses in the right axilla. There is a palpable mass in the left axilla. there is no nipple discharge expressed from either the left orright breast. LABORATORY VALUES: As Noted RADIOLOGIC STUDIES: As Noted Assessment IMPRESSION: Left Breast mass, likely cancer with positive left axillary nodes, s/p breast and axillary biopsy PLAN: The patient is to return for results of her ultrasound guided breast biopsy. If the patient notes bleeding from the biopsy site, she is to place pressure on the site. Discomfort from brusing can be managed with an ice pack or non steroidal analegics. Diagnoses: (N63.42) Subareolar mass of left breast (primary encounter diagnosis) My findings have been communicated to Dr. Ethan Donald MD via shared medical record. This note will be forwarded to Dr. Ethan Donald MD. Return to Clinic: The patient is instructed to follow-up with me in one week. Chino Ambrose MD documented in this encounterMercy Health11-02-2022 Nurse Note* Belen Hairston RN - 03/22/2022 2:45 PM EDT REVIEW OF SYSTEMS: General: The patient denies fatigue, denies weight loss, denies weight gain, denies feeling hot, and denies feelings of cold. Eyes: The patient denies glaucoma, NOTES eye injury/surgery, does not wear glasses or contacts. Ear/Nose/Throat: The patient denies allergies, denies hayfever, denies ear infections, and denies bloody noses. Cardiovascular: The patient denies chest pain, NOTES heart disease, NOTES high blood pressure,denies cardiac stent, denies prior heart attack, NOTES irregular heart beat, NOTES high cholesterol, denies poor circulation, denies heart failure, other cardiac issues, denies claudication, denies cold feet, denies peripheral arterial stent. Respiratory: The patient denies tuberculosis, denies pneumonia, denies frequent cough, denies pulmonary embolism, NOTES shortness of breath, and denies coughing up blood. Gastrointestinal: The patient denies difficulty swallowing, denies acid reflux, denies ulcers, denies vomiting, denies jaundice/hepatitis, denies gallbladder problems, denies black or tarry stools, denies hemorrhoids, denies bleeding from rectum, denies diverticulitis, denies constipation, NOTES diarrhea, denies loss of stool control, and denies hernias. Kidney/Bladder: The patient denies kidney stones, denies urine infections, and denies bloody urine. Skin: The patient denies a history of skin cancer, denies bleeding/changing moles, and denies a history of skin rash. Neurologic: The patient denies a history of epilepsy/convulsions, denies headaches, denies head/spinal injuries, and denies stroke/TIA. Psychiatric: The patient denies psychiatric medications, denies depression, and denies voices, denies substance abuse. Endocrine: The patient NOTES thyroid disorders, denies diabetes, and denies hormonal problems. Hematologic: The patient denies a history of bruising, denies bleeding, and denies anemia, denies blood clots. Infections: The patient NOTES a history of measles and mumps, denies rheumatic fever, and denies sexually transmitted diseases. Musculoskeletal: The patient denies back pain/injury, NOTES back problems, denies sciatica, denies knee/foot trouble, denies arthritis, or denies gout. When was patient's last Mammogram screening? 2021 Last Colonoscopy: 2015 Belen Hairston RN documented in this encounterMercy Health10-31-2022 Miscellaneous Notes* Telephone Encounter - Adriane Muhammad PA-C - 03/20/2022 6:30 AM EDT Has appointment scheduled for breast bx Omar Muhammad PA-C documented in this encounterMercy Health10-19-2022 Miscellaneous Notes* Telephone Encounter - Vivian Contreras RN - 03/08/2022 7:42 PM EDT Called and left a detailed voicemail notifying patient of providers message. Hospital phone number was left in case patient had any questions. Vivian Contreras RN * Telephone Encounter - Ethan Donald MD - 03/08/2022 5:24 PM EDT Labs are ok. Vit d is high normal. If taking separate vit d supplements, should stop * Telephone Encounter - John Reyes LPN - 03/08/2022 2:17 PM EDT See scanned labs from [facility] that were ordered on 02/15/22.(Folates,Vit D, and B12) documented in this encounterMercy Health09-28-2022 Miscellaneous Notes* Telephone Encounter - Xiomara Francois LPN - 02/15/2022 4:18 PM EDT Spoke with pt and information listed below given. Pt verbalizes understanding. Xiomara Francois LPN * Telephone Encounter - Ethan Donald MD - 02/15/2022 4:10 PM EDT Her labs are overall ok, except. Big red blood cells. Can be normal. Recheck b12 and folate in a few weeks. Vit d is just shy of being too high. Stop any vit d and can recheck in a few weeks Her cholesterol is up. Watch diet. documented in this encounterMercy Health09-27-2022 History of Present illness Narrative* Ethan Donald MD - 02/14/2022 2:04 PM EDT Patient presents with: ER F/U: 1 night ER stay at [facility] due to extreme sweating and dizziness. Cardiac workup with head CT. Still c/o intermittent sweating and dizziness HPI: Patient presents today for office visit for ER F/U. Was in [facility] ER back in November with sweating and dizziness. Dx with Vertigo. Still c/o intermittent sweating with dizziness. Seen in ER two months ago with vertigo. Did have labs and ct scan Was diaphoretic. Had a positive hallpike. Improved with fluids. Saw ENT. He says it is not BPPV. He is worried about a vagal episode however this has happened six or seven times since November. Not episode in the last week but happens fairly frequently. Sees Dr. Monsalve on Feb 20. No chest pain. No shortness of breath associated with episodes. No headaches or numbness or weakness. No syncope. Nothing that seems to trigger it other than the heat. Seems better since it has cooled down. I think that is why ENT wondered about vasovagal spells. Noticed a lump in her left breast. Noticed it two days ago. Not painful. May be getting smaller perpatient. No redness or warmth. MEDICATIONS: Current Outpatient Medications Medication Sig meclizine (ANTIVERT) 25 mg tab Take 25 mg by mouth three times daily. levothyroxine (SYNTHROID) 75 mcg tablet Take 1 tablet by mouth once daily. potassium chloride ER (KLOR-CON M10) 10 mEq tablet Take 1 tablet by mouth twice daily. Cholestyramine-Aspartame (PREVALITE) 4 gram powder Take 4 g by mouth once daily. furosemide (LASIX) 40 mg tablet Take 1 tablet by mouth twice daily. metoprolol succinate ER (TOPROL XL) 25 mg 24 hr tablet Take 1 tablet by mouth once daily. Cholecalciferol, Vitamin D3, 1,000 unit cap Take 1 capsule by mouth once daily. Natalia-3 Fatty Acids, FISH OIL, (FISH OIL) 360-1,200 mg cap Take 1 capsule by mouth twice daily withmeals. calcium carbonate-vitamin D3 (CALTRATE-600 + D VIT D3, 800,) 600 mg(1,500mg) - 800 unit tab Take 1 capsule by mouth once daily. ONE-A-DAY WOMENS FORMULA TAB Take one(1) tablet daily. No current facility-administered medications for this visit. ALLERGIES: ALLERGIES Allergen Reactions Aspirin Other: See Comments bleeding duodenal ulcer Niacin Other: See Comments hot flashing Simvastatin BODYACHES Vicodin [Hydrocodon* GI Upset 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) Other and unspecified hyperlipidemia Personal history of colonic polyps Colon polyps Renal stone 08/19/2010 Statin intolerance 07/29/2014 Unspecified disorders of calcium metabolism Unspecified functional disorder of intestine Unspecified hearing loss RIGHT EAR ONLY PAST SURGICAL HISTORY Procedure Laterality Date ADENOIDECTOMY PRIMARY <AGE 14 Adenoidectomy ANKLE SURGERY HX 07/09/2019 CATARACT EXTRACTION HX 10/29/14 CHOLECYSTECTOMY Cholecystectomy COLONOSCOPY FLX DX W/COLLJ SPEC WHEN PFRMD 10/08/94,11/11/04 Colonoscopy-repeat in -2009 COLONOSCOPY FLX DX W/COLLJ SPEC WHEN PFRMD 04/03/2016 Colonoscopy COLSC FLX W/RMVL OF TUMOR POLYP LESION SNARE TQ 11/2004 Polpectomy, lg intestine ESOPHAGOGASTRODUODENOSCOPY TRANSORAL DIAGNOSTIC [facility] EXC[facility] PARATHYROID TUMOR 2006 3 parathyroid glands removed LAPAROSCOPY SURG CHOLECYSTECTOMY 11/01/90 Cholecystectomy, lap LEFT HEART CATH,PERCUTANEOUS 09/01/11 Cardiac cath, L heart RENAL NDSC NEPHROS/PYELOSTOMY RMVL FB/CALCULUS 06/2010 Dr Hudson RIGHT HEART CATHETERIZATION 09/01/11 Cardiac cath, R heart RPLCMT PROST AORTIC VALVE OPEN XCP HOMOGRF/STENT 05/06/12 Aortic valve replacement THYROID FINE NEEDLE ASPIRATION 11/14/04 TONSILLECTOMY PRIMARY/SECONDARY <AGE 14 Tonsillectomy XCAPSL CTRC RMVL INSJ IO LENS PROSTH W/O ECP Cataract Extraction with PC IOL FAMILY HISTORY Problem Relation Age of Onset other (LIVER CIRRHOSIS) Mother Alzheimer's Disease Father Social History Tobacco Use Smoking status: Never Smokeless tobacco: Never Substance Use Topics Alcohol use: Yes Comment: SLIGHT Drug use: No Reviewed current medications, allergies, past medical history, surgical history, family history andsocial history today. REVIEW OF SYSTEMS All other reviewed and negative other than HPI. HEALTH MAINTENANCE: Reviewed health maintenance issues today and recommended the following in detail. VITALS: BP 144/88 Pulse 68 Ht 156.2 cm (5' 1.5) Wt 71.8 kg (158 lb 3.2 oz) SpO2 95% BMI 29.41 kg/m Last 4 Encounter Wt Readings: Date: Wt: 02/14/2022 71.8 kg (158 lb 3.2 oz) 01/05/2021 77.6 kg (171 lb) 01/12/2020 77.6 kg (171 lb) 12/18/2018 79.4 kg (175 lb) PHYSICAL EXAMINATION: General appearance: Well appearing, alert, in no acute distress, well-hydrated, well nourished. Skin: Skin color, texture, turgor normal, no suspicious rashes or lesions Head: Normocephalic, no masses, lesions, tenderness or abnormalities Eyes: Anicteric sclera. Pupils are equally round and reactive to light. Extraocular movements are intact. , no nystagmus Lungs: Lungs clear to auscultation. No wheezing, rhonchi, rales Heart: RRR without murmur, gallop, or rubs. No ectopy Abdomen: Normal abdominal exam, Abdomen soft, non-tender. Bowel sounds normal. No masses, organomegaly Extremities: No deformities, edema, skin discoloration, clubbing or cyanosis. Good capillary refill. Musculoskeletal: No joint swelling, deformity, or tenderness Peripheral pulses: Normal Neuro: Gait normal. Reflexes normal and symmetric. Sensation grossly intact. Normal motor exam. Breast. Left breast shows large firm mass beneath the nipple. No axillary or supraclavicular lymphadenopathy. Right breast is unremarkable. Chaperoned by [facility] ASSESSMENT/PLAN: 1. Vertigo - ICD9: 780.4, ICD10: R42 (primary diagnosis) - declines neuro testing like mri etc since doing better. - Red flags for re-assessment reviewed with patient in detail. - see Dr Monsalve. Call if recurs. Follow bp with cardiology - CBC + DIFF 2. Hyperlipidemia LDL goal <100 - ICD9: 272.4, ICD10: E78.5 - COMP METABOLIC PANEL - LIPID PANEL BASIC 3. Chronic diastolic congestive heart failure (HCC) - ICD9: 428.32, 428.0, ICD10: I50.32 - stable. 4. Acquired hypothyroidism - ICD9: 244.9, ICD10: E03.9 - TSH BLD 5. Vitamin D deficiency - ICD9: 268.9, ICD10: E55.9 - VITAMIN D 25 HYDROXY 6. Breast lump: Rec diagnostic mammogram and ultrasound soon. Ethan Donald MD documented in this encounterMercy Health09-27-2022 History of Past illness Narrative* Problem Noted Date Diagnosed Date Resolved Date Pressure injury of ankle, stage 2 02/14/2022 02/15/2023 Aortic valve stenosis, moderate 08/19/2010 12/05/2017 Anemia 08/19/2010 08/28/2016 Anemia due to GI blood loss 08/19/2010 08/28/2016 Hyperparathyroidism 12/06/19 18 documented as of this encounter (statuses as of 03/25/2023) [facility] Miscellaneous Notes* Telephone Encounter - Katina Wolfe Ma - 02/10/2022 3:23 PM EDT Last OV: 07/11/21 - virtually Next OV: 02/14/22 Potassium - 01/05/21 #180 w/3 Synthroid - 01/05/21 #180 w/3. Do you want to go ahead and fill or wait til appt? Katina Wolfe Ma * Telephone Encounter - Delma Martin - 02/10/2022 12:22 PM EDT Patient has been identified by name and date of : Yes Requested Prescriptions Pending Prescriptions Disp Refills levothyroxine (SYNTHROID) 75 mcg tablet 90 tablet 3 Sig: Take 1 tablet by mouth once daily. potassium chloride ER (KLOR-CON M10) 10 mEq tablet 180 tablet 3 Sig: Take 1 tablet by mouth twice daily. RX INSTRUCTIONS: Patient aware RX will be sent to pharmacy. No need to notify patient. Delma Martin documented in this encounterMercy Health12-17-2012 Evaluation note* Diagnosis Onset Date Resolution Status Dizziness acute Chronic diastolic (congestive) heart failure chronic Essential (primary) hypertension chronic History of aortic valve repl acement with bioprosthetic valve May 06, 2012 chronic Non-rheumatic aortic stenosis [facility] Work Phone: 1(110) 471-212512-17-2012 Evaluation note* Diagnosis Onset Date Resolution Status Dizziness acute Chronic diastolic (congestive) heart failure chronic Essential (primary) hypertension chronic History of aortic valve repl acement with bioprosthetic valve May 06, 2012 chronic Non-rheumatic aortic stenosis chronic Dizziness acute Chronic diastolic (congestive) heart failure chronic Essential (primary) hypertension chronic History of aortic valve repl acement with bioprosthetic valve May 06, 2012 chronic Non-rheumatic aortic stenosis [facility] Work Phone: 1(539) 165-250612-17-2012 Evaluation note* Diagnosis Onset Date Resolution Status Chronic diastolic (congestive) heart failure chronic Essential (primary) hypertension chronic History of aortic valve repl acement with bioprosthetic valve May 06, 2012 chronic Fall from slip, trip, or stumble acute Family history of polio acut e Fracture of left hip acute Leukocytosis acute [facility] Work Phone: 1(279) 584-875512-17-2012 Evaluation note* Diagnosis Onset Date Resolution Status Chronic diastolic (congestive) heart failure chronic Essential (primary) hypertension chronic History of aortic valve repl acement with bioprosthetic valve May 06, 2012 chronic Elevated diaphragm acute Fall from slip, trip, or stumble acute Family history of polio acut e Fracture of left hip acute Hypothyroidism acute Left displaced femoral neck fracture acute Leukocytosis acute ANDRY (obstructive sleep apnea) acute Chronic diastolic (congestive) heart failure chronic Essential (primary) hypertension chronic History of aortic valve repl acement with bioprosthetic valve May 06, 2012 chronic Secondary pulmonary arterial hypertension chronic [facility] Work Phone: 1(430) 184-347104-01-2011 History of Past illness Narrative* Problem Noted Date Resolved Date Aortic valve stenosis, moderate 08/19/2010 12/05/2017 Anemia 08/19/2010 08/28/2016 Anemia due to GI blood loss 08/19/201008/19 Hyperparathyroidism 12/05/2017 documented as of this encounter (statuses as of 02/10/2022) [facility] Narrative* Problem Noted Date Resolved Date Aortic valve stenosis, moderate 08/19/2010 12/05/2017 Anemia 08/19/2010 08/28/2016 Anemia due to GI blood loss 08/19/201008/19 Hyperparathyroidism 12/05/2017 documented as of this encounter (statuses as of 02/14/2022) [facility] of [facility] illness Narrative* Problem Noted Date Resolved Date Aortic valve stenosis, moderate 08/19/2010 12/05/2017 Anemia 08/19/2010 08/28/2016 Anemia due to GI blood loss 08/19/201008/19 Hyperparathyroidism 12/05/2017 documented as of this encounter (statuses as of 02/15/2022) [facility] of [facility] Narrative* Problem Noted Date Resolved Date Aortic valve stenosis, moderate 08/19/2010 12/05/2017 Anemia 08/19/2010 08/28/2016 Anemia due to GI blood loss 08/19/201008/19 Hyperparathyroidism 12/05/2017 documented as of this encounter (statuses as of 03/08/2022) [address]01-2011 History of Past illness Narrative* Problem Noted Date Resolved Date Aortic valve stenosis, moderate 08/19/2010 12/05/2017 Anemia 08/19/2010 08/28/2016 Anemia due to GI blood loss 08/19/201008/19 Hyperparathyroidism 12/05/2017 documented as of this encounter (statuses as of 03/20/2022) [address]01-2011 History of Past illness Narrative* Problem Noted Date Resolved Date Aortic valve stenosis, moderate 08/19/2010 12/05/2017 Anemia 08/19/2010 08/28/2016 Anemia due to GI blood loss 08/19/201008/19 Hyperparathyroidism 12/05/2017 documented as of this encounter (statuses as of 03/22/2022) [place] [address]-01-2011 History of Past illness Narrative* Problem Noted Date Resolved Date Aortic valve stenosis, moderate 08/19/2010 12/05/2017 Anemia 08/19/2010 08/28/2016 Anemia due to GI blood loss 08/19/201008/19 Hyperparathyroidism 12/05/2017 documented as of this encounter (statuses as of 03/30/2022) [facility] Narrative* Problem Noted Date Resolved Date Aortic valve stenosis, moderate 08/19/2010 12/05/2017 Anemia 08/19/2010 08/28/2016 Anemia due to GI blood loss 08/19/201008/19 Hyperparathyroidism 12/05/2017 documented as of this encounter (statuses as of 03/31/2022) [place] [address]-01-2011 History of Past illness Narrative* Problem Noted Date Resolved Date Aortic valve stenosis, moderate 08/19/2010 12/05/2017 Anemia 08/19/2010 08/28/2016 Anemia due to GI blood loss 08/19/201008/19 Hyperparathyroidism 12/05/2017 documented as of this encounter (statuses as of 2022) [place] [address]01-2011 History of Past illness Narrative* Problem Noted Date Resolved Date Aortic valve stenosis, moderate 08/19/2010 12/05/2017 Anemia 08/19/2010 08/28/2016 Anemia due to GI blood loss 08/19/201008/19 Hyperparathyroidism 12/05/2017 documented as of this encounter (statuses as of 05/02/2022) [facility] Narrative* Problem Noted Date Resolved Date Aortic valve stenosis, moderate 08/19/2010 12/05/2017 Anemia 08/19/2010 08/28/2016 Anemia due to GI blood loss 08/19/201008/19 Hyperparathyroidism 12/05/2017 documented as of this encounter (statuses as of 05/04/2022) [facility] note Author Christy Montelongo [facility] April 25, 2023 10:21am Note Date/Time April 25, 2023 1 0:21am [facility] Medical Records Department [address] [facility] [place] [address] Counseling Note - Pharmacy 04/25/23 1021 MR#: [id number] Acct: [id number] Name: SYDNEY DAIGLE Rep #:[id number] : 1935 87 From: Christy Montelongo PCP: Dr. Ethan Donald MD Status:ADM I N Y Location: [place] [address] Pharmacy [place] Med Reconciliation Pharmacy Service has performed discharge medication reconciliation for this patient. The patient's discharge medication list was reviewed for discrepancies and discrepancies were resolved. Medications at Discharge Home Medications calcium carbonate 600 mg-vitamin D3 20 mcg (800 unit) tablet 1 tab PO DAILY supplement 06/30/19 cholecalciferol (vitamin D3) 25 mcg (1,000 unit) tablet 1,000 unit PO DAILY supplement 06/30/19 multivitamin with minerals 1 tab PO DAILY supplement 06/30/19 potassium chloride 10 mEq tablet,extended release(part/cryst) 10 meq PO BIDCM 08/22/19 meclizine 25 mg tablet 25 mg PO TID PRN PRN dizziness #21 tabs 12/04/21 furosemide 40 mg tablet 40 mg PO DAILY #90 tabs 05/23/22 levothyroxine 75 mcg tablet 75 mcg PO DAILY #90 tabs 05/23/22 metoprolol succinate 25 mg tablet,extended release 24 hr 25 mg PO DAILY #90 tabs08/28/22 acetaminophen 325 mg tablet 650 mg (2 x 325 mg) PO Q6H PRN PRN Pain 1-10 Or Fever >100.7 #0 tabs 04/25/23 apixaban 5 mg tablet (Eliquis) 2.5 mg (1/2 x 5 mg) PO BID #40 tabs 04/25/23 calcium carbonate 200 mg calcium (500 mg) chewable tablet 500 mg (2.5 x 200 mg calcium (500 mg)) PO TIDCM #0 tabs 04/25/23 oxycodone 5 mg tablet 5 mg PO Q4H PRN PRN Pain Score 4-10 3 days #12 tabs 04/25/23 sennosides 8.6 mg-docusate sodium 50 mg tablet (Stool Softener-Stimulant Laxative) 2 tab PO BID #0 tabs 04/25/23 04/25/23 1021 <Electronically signed by Christy Montelongo> Date _ Christy Montelongo Cosigner Signature (if applicable): Date CC: ~ Signed [facility] Work Phone: Evaluation note* Diagnosis Onset Date Resolution Status History of aortic valve repl acement with bioprosthetic valve acute Vertigo acute [facility] Work Phone: Evaluation note* Diagnosis Acquired hypothyroidism Unspecified hypothyroidism Hypokalemia Hypopotassemia documented [facility] this encounter [facility]* Diagnosis Vertigo- Primary Dizziness and giddiness Hyperlipidemia LDL goal <100 Other and unspecified hyperlipidemia Chronic diastolic congestive heart failure (HCC) Chronic diastolic heart failure Acquired hypothyroidism Unspecified hypothyroidism Vitamin D deficiency Unspecified vitamin D deficiency Mass of left breast, unspecified quadrant Disorder of breast, unspecified documented [facility] encounter [facility]* Diagnosis Macrocytosis- Primary Other specified diseases of blood and blood-forming organs High serum vitamin D Vitamin D deficiency, unspecified [facility] noteNo assessment information availableWAultman [facility] Work Phone: Evaluation note* Diagnosis Breast lesion on mammography- Primary Abnormal mammogram, unspecified [facility] Diagnosis Subareolar mass of left breast- Primary documented [facility] this encounter [facility]* Diagnosis Malignant neoplasm of overlapping sites of left breast in female, estrogen receptor positive (HCC)- Primary Malignant neoplasm of overlapping sites of left breast in female, estrogen receptor positive (HCC) documented [facility] encounter [facility]* Diagnosis Malignant neoplasm of left breast in female, estrogen receptor positive, unspecified site of breast (HCC)- Primary [facility] Diagnosis Aftercare following surgery- Primary Encounter for other specified aftercare [facility] Diagnosis Malignant neoplasm of left breast in female, estrogen receptor positive, unspecified site of breast (HCC)- Primary [facility] Diagnosis Hyperlipidemia LDL goal <100- Primary Other and unspecified hyperlipidemia Benign hypertension Essential hypertension, benign [facility]* Diagnosis Malignant neoplasm of left breast in female, estrogen receptor positive, unspecified site of breast (HCC)- Primary [facility] Diagnosis Chronic diastolic congestive heart failure (HCC)- Primary Chronic diastolic heart failure Benign hypertension Essential hypertension, benign Hyperlipidemia LDL goal <100 Other and unspecified hyperlipidemia Obstructive sleep apnea syndrome Obstructive sleep apnea (adult) (pediatric) Actinic keratosis Age-related osteoporosis without current pathological fracture Senile osteoporosis Secondary pulmonary arterial hypertension (HCC) Malignant neoplasm of left female breast, unspecified estrogen receptor status, unspecified site of breast (HCC) [facility] Diagnosis Acquired hypothyroidism- Primary Unspecified hypothyroidism [facility] Diagnosis Hyperglycemia- Primary Other abnormal glucose Macrocytosis Other specified diseases of blood and blood-forming organs documented in this [facility] Diagnosis Chronic diastolic congestive heart failure (HCC)- Primary Chronic diastolic heart failure Hypokalemia Hypopotassemia S/P aortic valve replacement Heart valve replaced by other means Hyperlipidemia LDL goal <100 Other and unspecified hyperlipidemia Nocturnal hypoxia Hypoxemia Diaphragmatic paresis Disorders of diaphragm Obstructive sleep apnea syndrome Obstructive sleep apnea (adult) (pediatric) Acquired hypothyroidism Unspecified hypothyroidism Malignant neoplasm of left female breast, unspecified estrogen receptor status, unspecified site of breast (HCC) Statin intolerance Other drug allergy [facility] Diagnosis Acute cough- Primary Community acquired pneumonia of right lower lobe of lung [facility] Diagnosis Subareolar mass of left breast [facility]* Diagnosis Mass of left breast, unspecified quadrant Disorder of breast, unspecified [facility]* Diagnosis Malignant neoplasm of left breast in female, estrogen receptor positive, unspecified site of breast (HCC) [facility] Diagnosis Malignant neoplasm of left breast in female, estrogen receptor positive, unspecified site of breast (HCC)- Primary [facility]* Diagnosis Benign hypertension- Primary Essential hypertension, benign Acquired hypothyroidism Unspecified hypothyroidism Hyperlipidemia LDL goal <100 Other and unspecified hyperlipidemia [facility]* Diagnosis Benign hypertension- Primary Essential hypertension, benign Chronic diastolic congestive heart failure (HCC) Chronic diastolic heart failure S/P aortic valve replacement Heart valve replaced by other means Secondary pulmonary arterial hypertension (HCC) Hyperlipidemia LDL goal <100 Other and unspecified hyperlipidemia Stenosis of prosthetic aortic valve, subsequent encounter Acquired hypothyroidism Unspecified hypothyroidism Malignant neoplasm of left female breast, unspecified estrogen receptor status, unspecified site of breast (HCC) Age-related osteoporosis without current pathological fracture Senile osteoporosis Statin intolerance Other drug allergy Vertigo Dizziness and giddiness [facility] Diagnosis Pre-operative examination- Primary Preoperative examination, unspecified Physical debility Debility, unspecified Benign hypertension Essential hypertension, benign Chronic diastolic congestive heart failure (HCC) Chronic diastolic heart failure Diaphragmatic paralysis Disorders of diaphragm Hyperlipidemia LDL goal <100 Other and unspecified hyperlipidemia Acquired hypothyroidism Unspecified hypothyroidism Nocturnal hypoxia Hypoxemia Obstructive sleep apnea syndrome Obstructive sleep apnea (adult) (pediatric) Age-related osteoporosis without current pathological fracture Senile osteoporosis S/P aortic valve replacement Heart valve replaced by other means Secondary pulmonary arterial hypertension (HCC) Ventricular ectopic beats Other premature beats Acute poliomyelitis Acute unspecified poliomyelitis, unspecified poliovirus Acute cough [facility] Diagnosis Pre-operative examination- Primary Preoperative examination, unspecified Physical debility Debility, unspecified Benign hypertension Essential hypertension, benign Chronic diastolic congestive heart failure (HCC) Chronic diastolic heart failure Diaphragmatic paralysis Disorders of diaphragm Hyperlipidemia LDL goal <100 Other and unspecified hyperlipidemia Acquired hypothyroidism Unspecified hypothyroidism Nocturnal hypoxia Hypoxemia Obstructive sleep apnea syndrome Obstructive sleep apnea (adult) (pediatric) Age-related osteoporosis without current pathological fracture Senile osteoporosis S/P aortic valve replacement Heart valve replaced by other means Secondary pulmonary arterial hypertension (HCC) Ventricular ectopic beats Other premature beats Acute poliomyelitis Acute unspecified poliomyelitis, unspecified poliovirus Cellulitis of back except buttock- Primary Cellulitis and abscess of trunk Partial thickness burn of upper back, initial encounter [facility] Diagnosis Pre-operative examination- Primary Preoperative examination, unspecified Physical debility Debility, unspecified Benign hypertension Essential hypertension, benign Chronic diastolic congestive heart failure (HCC) Chronic diastolic heart failure Diaphragmatic paralysis Disorders of diaphragm Hyperlipidemia LDL goal <100 Other and unspecified hyperlipidemia Acquired hypothyroidism Unspecified hypothyroidism Nocturnal hypoxia Hypoxemia Obstructive sleep apnea syndrome Obstructive sleep apnea (adult) (pediatric) Age-related osteoporosis without current pathological fracture Senile osteoporosis S/P aortic valve replacement Heart valve replaced by other means Secondary pulmonary arterial hypertension (HCC) Ventricular ectopic beats Other premature beats Acute poliomyelitis Acute unspecified poliomyelitis, unspecified poliovirus Partial thickness burn of upper back, initial encounter- Primary Cellulitis of back except buttock Cellulitis and abscess of trunk [facility] Diagnosis Pre-operative examination- Primary Preoperative examination, unspecified Physical debility Debility, unspecified Benign hypertension Essential hypertension, benign Chronic diastolic congestive heart failure (HCC) Chronic diastolic heart failure Diaphragmatic paralysis Disorders of diaphragm Hyperlipidemia LDL goal <100 Other and unspecified hyperlipidemia Acquired hypothyroidism Unspecified hypothyroidism Nocturnal hypoxia Hypoxemia Obstructive sleep apnea syndrome Obstructive sleep apnea (adult) (pediatric) Age-related osteoporosis without current pathological fracture Senile osteoporosis S/P aortic valve replacement Heart valve replaced by other means Secondary pulmonary arterial hypertension (HCC) Ventricular ectopic beats Other premature beats Acute poliomyelitis Acute unspecified poliomyelitis, unspecified poliovirus Partial thickness burn of upper back, initial encounter- Primary [facility]* Diagnosis Pre-operative examination- Primary Preoperative examination, unspecified Physical debility Debility, unspecified Benign hypertension Essential hypertension, benign Chronic diastolic congestive heart failure (HCC) Chronic diastolic heart failure Diaphragmatic paralysis Disorders of diaphragm Hyperlipidemia LDL goal <100 Other and unspecified hyperlipidemia Acquired hypothyroidism Unspecified hypothyroidism Nocturnal hypoxia Hypoxemia Obstructive sleep apnea syndrome Obstructive sleep apnea (adult) (pediatric) Age-related osteoporosis without current pathological fracture Senile osteoporosis S/P aortic valve replacement Heart valve replaced by other means Secondary pulmonary arterial hypertension (HCC) Ventricular ectopic beats Other premature beats Acute poliomyelitis Acute unspecified poliomyelitis, unspecified poliovirus Malignant neoplasm of left breast in female, estrogen receptor positive, unspecified site of breast (HCC) [facility] Diagnosis Pre-operative examination- Primary Preoperative examination, unspecified Physical debility Debility, unspecified Benign hypertension Essential hypertension, benign Chronic diastolic congestive heart failure (HCC) Chronic diastolic heart failure Diaphragmatic paralysis Disorders of diaphragm Hyperlipidemia LDL goal <100 Other and unspecified hyperlipidemia Acquired hypothyroidism Unspecified hypothyroidism Nocturnal hypoxia Hypoxemia Obstructive sleep apnea syndrome Obstructive sleep apnea (adult) (pediatric) Age-related osteoporosis without current pathological fracture Senile osteoporosis S/P aortic valve replacement Heart valve replaced by other means Secondary pulmonary arterial hypertension (HCC) Ventricular ectopic beats Other premature beats Acute poliomyelitis Acute unspecified poliomyelitis, unspecified poliovirus Malignant neoplasm of left breast in female, estrogen receptor positive, unspecified site of breast (HCC)- Primary [facility]* Diagnosis Pre-operative examination- Primary Preoperative examination, unspecified Physical debility Debility, unspecified Benign hypertension Essential hypertension, benign Chronic diastolic congestive heart failure (HCC) Chronic diastolic heart failure Diaphragmatic paralysis Disorders of diaphragm Hyperlipidemia LDL goal <100 Other and unspecified hyperlipidemia Acquired hypothyroidism Unspecified hypothyroidism Nocturnal hypoxia Hypoxemia Obstructive sleep apnea syndrome Obstructive sleep apnea (adult) (pediatric) Age-related osteoporosis without current pathological fracture Senile osteoporosis S/P aortic valve replacement Heart valve replaced by other means Secondary pulmonary arterial hypertension (HCC) Ventricular ectopic beats Other premature beats Acute poliomyelitis Acute unspecified poliomyelitis, unspecified poliovirus Benign hypertension- Primary Essential hypertension, benign Hyperlipidemia LDL goal <100 Other and unspecified hyperlipidemia 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, subsequent encounter Obstructive sleep apnea syndrome Obstructive sleep apnea (adult) (pediatric) Acquired hypothyroidism Unspecified hypothyroidism Malignant neoplasm of left female breast, unspecified estrogen receptor status, unspecified site of breast (HCC) Vertigo Dizziness and giddiness Statin intolerance Other drug allergy Ataxia Lack of coordination History of poliomyelitis Personal history of poliomyelitis [facility] Diagnosis Pre-operative examination- Primary Preoperative examination, unspecified Physical debility Debility, unspecified Benign hypertension Essential hypertension, benign Chronic diastolic congestive heart failure (HCC) Chronic diastolic heart failure Diaphragmatic paralysis Disorders of diaphragm Hyperlipidemia LDL goal <100 Other and unspecified hyperlipidemia Acquired hypothyroidism Unspecified hypothyroidism Nocturnal hypoxia Hypoxemia Obstructive sleep apnea syndrome Obstructive sleep apnea (adult) (pediatric) Age-related osteoporosis without current pathological fracture Senile osteoporosis S/P aortic valve replacement Heart valve replaced by other means Secondary pulmonary arterial hypertension (HCC) Ventricular ectopic beats Other premature beats Acute poliomyelitis (HCC) Acute unspecified poliomyelitis, unspecified poliovirus Hyperlipidemia LDL goal <100- Primary Other and unspecified hyperlipidemia Medicare annual wellness visit, subsequent Routine general medical examination at a health care facility Malignant neoplasm of left female breast, unspecified estrogen receptor status, unspecified site of breast (HCC) Chronic diastolic congestive heart failure (HCC) Chronic diastolic heart failure S/P aortic valve replacement Heart valve replaced by other means 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, subsequent encounter Obstructive sleep apnea syndrome Obstructive sleep apnea (adult) (pediatric) Acquired hypothyroidism Unspecified hypothyroidism Age-related osteoporosis without current pathological fracture Senile osteoporosis Statin intolerance Other drug allergy History of poliomyelitis Personal history of poliomyelitis Macular degeneration of both eyes, unspecified type Hyperglycemia Other abnormal glucose Diarrhea, unspecified type Encounter for screening examination for other mental health and behavioral disorders Screening for depression Mild cognitive impairment Mild cognitive impairment, so stated [facility] Author Koby Ochoa [facility] April 17, 2023 9:43pm Note Date/Time April 17, 2023 9:42pm [facility] Medical Records Department [address] [place] [id number] H&P Exam - Hospitalist 04/17/233 MR#: [id number] Acct: [id number] Name: SYDNEY DAIGLE Rep #:[id number] : 1935 87 From: Koby Ochoa DO PCP: Dr. Ethan Donald MD Status:ADM I N [place] [facility] [place] [facility] [id number] HPI - General General Date of Admission: 04/17/23 Date of Service: 04/17/23 Chief Complaint: Fall. Left hip pain. HPI Narrative SYDNEY DAIGLE, is a 87 F who presents after a fall. 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 She thinksthat she may have tripped over something and landed on her buttocks. She was able to get herself up but did have left hip pain. She was able to walk to her car and drive to her home and get into her home. She reached out to her sister who came and saw her and had the patient sent to the emergency room. Patient was found to have a nondisplaced subcapital fracture of the left femoral neck. The emergency room physician reached out to Dr. Chaudhry, of orthopedics, who stated that he would be willing to see the patient and would plan on doing surgery on . 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 Ventricular ectopy Vertigo Vertigo Home Medications calcium carbonate 600 mg-vitamin D3 20 mcg (800 unit) tablet 1 tab PO DAILY supplement 06/30/19 [History Last Taken 07/25/19 08:19] cholecalciferol (vitamin D3) 25 mcg (1,000 unit) tablet 1,000 unit PO DAILY supplement 06/30/19 [History Last Taken 07/25/19 08:22] multivitamin with minerals 1 tab PO DAILY supplement 06/30/19 [History Last Taken 07/25/19 08:19] potassium chloride 10 mEq tablet,extended release(part/cryst) 10 meq PO BIDCM 08/22/19 [Rx Last Taken Unknown] meclizine 25 mg tablet 25 mg PO TID PRN PRN dizziness #21 tabs 12/04/21 [Rx Last Taken Unknown] furosemide 40 mg tablet 40 mg PO DAILY #90 tabs 05/23/22 [Rx Last Taken Unknown] levothyroxine 75 mcg tablet 75 mcg PO DAILY #90 tabs 05/23/22 [Rx Last Taken Unknown] metoprolol succinate 25 mg tablet,extended release 24 hr 25 mg PO DAILY #90 tabs08/28/22 [Rx Last Taken Unknown] Allergy/AdvReac Type Severity Reaction Status Date / Time aspirin Allergy made my Verified 04/17/23 17:29 blood too thin hydrocodone [From Vicodin] Allergy feels Verified 04/17/23 17:29 like getting high niacin AdvReac severe Verified 04/17/23 17:29 sweating simvastatin AdvReac muscle Verified 04/17/23 17:29 aches Family History Father Dementia Mother Liver cirrhosis Sister Aortic valve disease Brother Dementia Surgical History H/O breast biopsy H/O colonoscopy History of aortic valve replacement with bioprosthetic valve (05/06/12) History of aortic valve replacement with bioprosthetic valve History of open reduction and internal fixation (ORIF) procedure (07/09/19) History of parathyroidectomy History of partial mastectomy of left breast History of right and left heart catheterization (09/01/11) History of tonsillectomy and adenoidectomy Hx of cholecystectomy Social History household members: none Smoking Status: Never smoker alcohol intake: current alcohol intake frequency: holidays/special occasions only substance use type: does not use caffeine: Yes Type: coffee Number of servings: 1 ROS ROS Narrative Chronically short of breath but patient is independent on her own. [place] to [employer] [facility] [place] per [facility]. All review of systems were negative except as mentioned above in the history of present illness and the other review of systems. Vital Signs Vital Signs Vital Signs: 04/17/23 17:29 04/17/23 18:26 04/17/23 20:32 Temperature 36.3 C L Temperature Source Temporal Pulse Rate 90 102 H Respiratory Rate 17 21 H Respiratory Effort Normal Blood Pressure 119/81 H 102/87 H Blood Pressure Mean 93 92 Pulse Ox 96 94 Oxygen Delivery Method Room Air Room Air Nasal Cannula Weight Weight: 70.3 kg Body Mass Index (BMI) 25.7 Physical Exam Narrative - Physical Exam General: Alert, Oriented x3, Cooperative HEENT: Atraumatic, PERRLA, EOMI, Normocephalic Oral: Moist Mucosa, No Gingival or Mucosal Lesions/ Ulcerations Neck: Supple, No JVD, Negative Carotid Bruits Lungs: Clear to auscultation, Normal air movement Cardiovascular: Regular rate, 2 out of 6 systolic ejection murmur at the right upper sternal border. Abdomen: Bowel Sounds Present, Soft, Non Tender, Non-Distended, No Hepato-splenomegaly Extremities: No clubbing, No cyanosis, No edema, Capillary Refill Less than 3 Seconds Skin: No rashes, No breakdown Musculoskeletal: No Tenderness to Palpation of Joints or Extremities Neurological: Neuro grossly intact Psych/Mental Status: Normal Affect, Appropriate Results Lab / Micro Data Attestation: I reviewed the patient's lab results. 04/17/23 19:10 04/17/23 19:10 Labs: Laboratory Results - last 24 hr 04/17/23 19:10: WBC 15.2 H, RBC 4.38, Hgb 13.7, Hct 44.2, MCV 100.9 H, MCH 31.3,MCHC 31.0 L, RDW Std Deviation 51.9 H, RDW Coeff of Junior 14.0, Plt Count 264, MPV10.1, Immature Gran % (Auto) 0.600, Neut % (Auto) 86.0 H, Lymph % (Auto) 8.6 L, [place] % (Auto) 3.9, Eos % (Auto) 0.4, Baso % (Auto) 0.5, Absolute Neuts (auto) 13.1 H, Absolute Lymphs (auto) 1.31, Nucleated RBC % 0, Sodium 141, Potassium 3.9, Chloride 104, Carbon Dioxide 32.0, Anion Gap 5, BUN 18, Creatinine 0.80, Estim Creat Clear Calc 46.26, Est GFR (MDRD) Af Amer 88, Est GFR (MDRD) Non-Af 72, BUN/Creatinine Ratio 22.5 H, Glucose 131 H, Calcium 9.5 04/17/23 19:45: POC Glucose 155 H 04/17/23 20:28: Urine Color Yellow, Urine Clarity Clear, Urine pH 6.0, Ur Specific [place] 1.025, Urine Protein 30 H, Urine Glucose (UA) Normal, Urine Ketones 50 H, Urine Occult Blood Negative, Urine Nitrite Negative, Urine Bilirubin Negative, Urine Urobilinogen Normal, Ur Leukocyte Esterase 25 H, UrineRBC 0 SEEN, Urine WBC 0 SEEN, Ur Squamous Epith Cells 0 SEEN, Urine Bacteria 0 SEEN, Urine Mucus 0 SEEN EKG Initial EKG: Attestation: I personally reviewed and interpreted this EKG as follows: Prior EKG tracings: available for review EKG Rhythm Intrepretation: Sinus Rhythm (With PVCs.) Imagaing Radiology Impression Femur X-Ray 04/17/23 17:50 IMPRESSION: Subcapital fracture of the left femoral neck. Electronically Signed: Xiomara Cain MD at 18:29 EST Reading Location ID and State: Taisha Augustine MD Tel , Service support , Pelvis X-Ray 04/17/23 18:45 IMPRESSION: Findings suspicious for nondisplaced subcapital fracture of the left femoral neck. This is better demonstrated on the x-ray femur. Electronically Signed: Xiomara Cain MD at 20:37 EST Reading Location ID and State: Taisha Augustine MD Tel , Service support , Chest X-Ray 04/17/23 19:25 IMPRESSION: No radiographic evidence of acute cardiopulmonary disease. Electronically Signed: Xiomara Cain MD at 20:40 EST Reading Location ID and State: Taisha Augustine MD Tel , Service support , Assessment & Plan Assessment/Plan (1) Fracture of left hip: QUALIFIERS: Encounter type: initial encounter Fracture type: closed Qualified Code(s): S72.002A - Fracture of unspecified part of neck of left femur, initial encounter for closed fracture (2) Leukocytosis: QUALIFIERS: Leukocytosis type: other Qualified Code(s): D72.828 -Other elevated white blood cell count PLAN: Plan Left hip fracture: Status post mechanical fall. Orthopedics has been contacted for the emergency room and plan is for surgery on the . Patient has a good performance status and is medically cleared to proceed with the surgery. Patient is medically optimized to proceed. Will check a 25-hydroxy vitamin D level. Bedrest. Pain control. PT OT evaluate and treat. Leukocytosis: Suspect reactive. Will follow-up in the morning. Urinalysis was unremarkable. Chronic conditions * Postpolio syndrome with left-sided weakness * Status post aortic valve bioprosthetic replacement. * ANDRY: Continue with BiPAP with oxygen bleed. At night. The discussed with the patient's grandson who is at bedside and he stated that he will try to bring him in tonight. * Hypertension: Continue with metoprolol succinate and furosemide. * Hypothyroidism: Continue levothyroxine. VTE prophylaxis SCDs for now. Chemical prophylaxis after surgery. CODE STATUS: Addressed with patient. Patient wishes to be DNR Comfort Care arrest. She is okay with short-term intubation. Disposition: Anticipate patient will require [facility] facility when she is ready for discharge. Charges/Coding Visit Charges Inpatient E&M: 52238 Init Hosp L3 04/17/232142 <Electronically signed by Koby Ochoa DO> Cosigner Signature (if applicable): CC: Dr. Koby Ochoa DO; Dr. Ethan Donald MD~ Signed [facility] Work Phone: [facility] Work Phone: Reason for referral (narrative)* Diagnostic Procedure Only (Routine) - Authorized Specialty Diagnoses / Procedures Referred By Pito liang Referred To Contact [facility] Diagnoses Mass of left breast, unspecified quadrant Disorder of breast, unspecified Procedures BREAST LTD LT BREAST UNI REAL TIME WITH IMAGE LIMITED Ethan Donald MD [address] [place] [address] [facility] [address] [place] [address] Referral ID Status Reason Start Date Expiration Date Visits Requested Visits Authorized [id number] Authorized Auto-Generat ed Referral 02/14/2022 03/16/2023 1 1 * Diagnostic Procedure Only (Routine) - Authorized Specialty Diagnoses / Procedures Referred By Contac Referred To Contact [facility] Diagnoses Mass of left breast, unspecified quadrant Disorder of breast, unspecified Procedures [facility] DIAGNOSTIC LT DIAGNOSTIC MAMMOGRAPHY COMPUTER-AIDED DETCJ Ethan Oconnor MD [address] [place] [address] [facility] [address] [place] [address] Referral ID Status Reason Start Date Expiration Date Visits Requested Visits Authorized [id number] Authorized Auto-Generat ed Referral 02/14/2022 03/16/2023 1 1 [facility] for referral (narrative)* Diagnostic Procedure Only (Routine) - Pending Review Specialty Diagnoses / Procedures Referred By Pito liang Referred To Contact [facility] Diagnoses Subareolar mass of left breast Procedures [facility] DIAGNOSTIC LT DIAGNOSTIC MAMMOGRAPHY COMPUTER-AIDED DETCJ Chino Sena MD [address] [place] [address] [facility] [address] [place] [address] Referral ID Status Reason Start Date Expiration Date Visits Requested Visits Authorized [id number] Pending Review Auto-Generat ed Referral 03/22/2022 04/21/2023 1 1 [facility] for referral (narrative)* Diagnostic Procedure Only (Routine) - Pending Review Specialty Diagnoses / Procedures Referred By Pito liang Referred To Contact [facility]LECULAR [facility] FUNCTIONAL IMAGING Diagnoses Malignant neoplasm of overlapping sites of left breast in female, estrogen receptor positive (HCC) Procedures NM PET/CT WHOLE BODY INITIAL PET IMAGING FOR CT ATTENUATION WHOLE BODY Chino Ambrose MD [address] [place] [address] Molecular & Functional Imaging [address] [place] [address] Referral ID Status Reason Start Date Expiration Date Visits Requested Visits Authorized [id number] Pending Review Auto-Generat ed Referral 04/29/2023 1 1 [facility] for referral (narrative)* Diagnostic Procedure Only (Routine) - Authorized Specialty Diagnoses / Procedures Referred By Pito liang Referred To Contact [facility] Diagnoses Malignant neoplasm of left breast in female, estrogen receptor positive, unspecified site of breast (HCC) Procedures YANET DIAGNOSTIC BILAT DIAGNOSTIC MAMMOGRAPHY COMPUTER-AIDED DETCJ Chino Markham MD [address] [place] [address] [facility] [address] [place] [address] Referral ID Status Reason Start Date Expiration Date Visits Requested Visits Authorized [id number] Authorized Auto-Generat ed Referral 3 09/02/2023 1 1 [facility] for referral (narrative)* Diagnostic Procedure Only (Routine) - Closed Specialty Diagnoses / Procedures Referred By Pito liang Referred To Contact [facility] IMAGING Diagnoses Subareolar mass of left breast Procedures YANET DIAGNOSTIC LT DIAGNOSTIC MAMMOGRAPHY COMPUTER-AIDED DETCJ [facility] Chino Ambrose MD [address] [place] [address] [facility] [address] [place] [address] Referral ID Status Reason Start Date Expiration Date V isits Requested Visits Authorized [id number] Closed Auto-Generate d Referral 03/22/2022 04/21/2023 1 1 [facility] for referral (narrative)* Diagnostic Procedure Only (Routine) - Authorized Specialty Diagnoses / Procedures Referred By Pito liang Referred To Contact [facility] IMAGING Diagnoses Malignant neoplasm of left breast in female, estrogen receptor positive, unspecified site of breast (HCC) Procedures YANET SCREENING W LESLIE SCREENING DIGITAL BREAST TOMOSYNTHESIS BI SCREENING MAMMOGRAPHY BI 2-VIEW BREAST INC CAD Chino Ambrose MD [address] [place] [address] [facility] [address] [place] [address] Referral ID Status Reason Start Date Expiration Date Visits Requested Visits Authorized [id number] Authorized Auto-Generat ed Referral 05/09/2024 1 1 [facility] for visit Narrative* Diagnostic Procedure Only (Routine) - Closed Specialty Diagnoses / Procedures Referred By Pito liang Referred To Contact [facility] IMAG[facility] Diagnoses Subareolar mass of left breast Procedures YANET DIAGNOSTIC LT DIAGNOSTIC MAMMOGRAPHY COMPUTER-AIDED DETCJ Chino Sena MD [address] [place] [address] [facility] [address] [place] [address] Referral ID Status Reason Start Date Expiration Date V isits Requested Visits Authorized [id number] Closed Auto-Generate d Referral 03/22/2022 04/21/2023 1 1 [facility] for visit Narrative* Diagnostic Procedure Only (Routine) - Closed Specialty Diagnoses / Procedures Referred By Pito liang Referred To Contact [facility] IMAG[facility] Diagnoses Mass of left breast, unspecified quadrant Disorder of breast, unspecified Procedures YANET DIAGNOSTIC LT DIAGNOSTIC MAMMOGRAPHY COMPUTER-AIDED DETCJ Ethan Oconnor MD [address] [place] [address] [facility] [address] [place] [address] Referral ID Status Reason Start Date Expiration Date V isits Requested Visits Authorized [id number] Closed Auto-Generate d Referral 02/14/2022 03/16/2023 1 1 [facility] for visit Narrative* Diagnostic Procedure Only (Routine) - Closed Specialty Diagnoses / Procedures Referred By Pito liang Referred To Contact [facility] IMAG[facility] Diagnoses Malignant neoplasm of left breast in female, estrogen receptor positive, unspecified site of breast (HCC) Procedures YANET DIAGNOSTIC BILAT DIAGNOSTIC MAMMOGRAPHY COMPUTER-AIDED DETCJ Chino Ambrose MD [address] [place] [address] [facility] [address] [place] [address] Referral ID Status Reason Start Date Expiration Date V isits Requested Visits Authorized [id number] Closed Auto-Generate d Referral 04/04/2023 09/02/2023 [facility] Procedure Only (Routine) - Closed Specialty Diagnoses / Procedures Referred By Pito liang Referred To Contact [facility] IMAGING Diagnoses Malignant neoplasm of left breast in female, estrogen receptor positive, unspecified site of breast (HCC) Procedures YANET SCREENING W LESLIE SCREENING DIGITAL BREAST TOMOSYNTHESIS BI SCREENING MAMMOGRAPHY BI 2-VIEW BREAST INC Chino Lucas MD [address] [place] [address] [facility] [address] [place] [address] Referral ID Status Reason Start Date Expiration Date V isits Requested Visits Authorized [id number] Closed Auto-Generate d Referral 04/10/2024 05/09/2024 1 1 [facility] Chief Complaint and Reason for Visit Chief Complaint VERTIGO Reason for Visit History of aortic va lve replacement with bioprosthetic valve Vertigo Chief Complaint VERTIGO Vertigo Reason for Visit History of aortic va lve replacement with bioprosthetic valve Vertigo Chief Complaint VERTIGO Vertigo Chief Complaint VERTIGO Vertigo 1 Y FU AVS Reason for Visit Dizziness Chronic diastolic (congestive) heart failure Essential (primary) hypertension 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 Chief Complaint VERTIGO Vertigo 1 Y FU AVS NEED ORDER EORDER Reason for Visit Dizziness Chronic diastolic (congestive) heart failure Essential (primary) hypertension 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 Chief Complaint 1 Y FU AVS NEED ORDER EORDER MALIGNANT NEOPLASM OF LEFT BREAST 2 M FU Reason for Visit Dizziness Chronic diastolic (congestive) heart failure Essential (primary) hypertension 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 Dizziness Chronic diastolic (congestive) heart failure Essential (primary) hypertension 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 Chief Complaint MALIGNANT NEOPLASM O F LEFT BREAST 2 M FU NEED LAB ORDER Reason for Visit Dizziness Chronic diastolic (congestive) heart failure Essential (primary) hypertension 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 Chief Complaint NEED LAB ORDER 1 Y FU LEFT HIP FRACTURE LEFT HIP FRACTURE Reason for Visit Chronic diastolic (c ongestive) heart failure Essential (primary) hypertension History of aortic valve replacement with bioprosthetic valve Fall from slip, trip, or stumble Family history of polio Fracture of left hip Leukocytosis Chief Complaint NEED LAB ORDER 1 Y FU LEFT HIP FRACTURE LEFT HIP FRACTURE LEFT HIP FRACTURE LEFT HIP FRACTURE LEFT HIP FRACTURE LEFT HIP FRACTURE LEFT HIP FRACTURE LEFT HIP FRACTURE LEFT HIP FRACTURE LEFT HIP FRACTURE LEFT HIP FRACTURE LEFT HIP FRACTURE LEFT HIP FRACTURE LEFT HIP FRACTURE Reason for Visit Chronic diastolic (c ongestive) heart failure Essential (primary) hypertension 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 Fall from slip, trip, or stumble Family history of polio Fracture of left hip Hypothyroidism Left displaced femoral neck fracture Leukocytosis ANDRY (obstructive sleep apnea) Chronic diastolic (congestive) heart failure Essential (primary) hypertension History of aortic valve replacement with bioprosthetic valve Secondary pulmonary arterial hypertension Family History Relationship Condition Age at Onset Recorded Date/T lanette father Dementia Unknown mother Hepatic cirrhosis Unknown sister Aortic valve disorder Unknown brother Dementia Unknown Advance Directives Advance Directive Response Recorded Date/ Time Advance Directives Yes June 7:40am Living Will Yes December 03, 2021 6:57pm Power of Drug Discovery Informatics Specialist Yes December 03 6:57pm Name of Medical Power of Drug Discovery Informatics Specialist . December 03, 2021 6:57pm Advance Directive Response Recorded Date/ Time Name of Medical Power of Drug Discovery Informatics Specialist Zafar Sewelljoao carson December 04, 2021 12:42am Advance Directives Yes June 7:40am Living Will Yes December 04, 2021 12:42am Power of Drug Discovery Informatics Specialist Yes December 04 12:42am Advance Directive Response Recorded Date/ Time Name of Medical Power of Drug Discovery Informatics Specialist Zafar Jeffery alli December 03, 2021 11:42pm Advance Directives Yes June 6:40am Living Will Yes December 03, 2021 11:42pm Power of Drug Discovery Informatics Specialist Yes December 03 11:42pm Documents on File Type Date Recorded 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 anation Advance Directive(s) 04/04/2022 9:14 AM Advance Directive Response Recorded Date/ Time Advance Directives Yes June 6:40am Living Will Yes December 03, 2021 11:42pm Power of Drug Discovery Informatics Specialist Yes December 03 11:42pm Documents on File Type Date Recorded 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 Advance Directive(s) 04/04/2022 9:14 AM Advance Directive Response Recorded Date/ Time Advance Directives Yes June 7:40am Living Will Yes December 04, 2021 12:42am Power of Drug Discovery Informatics Specialist Yes December 04 12:42am Advance Directive Response Recorded Date/ Time Name of Medical Power of Drug Discovery Informatics Specialist Palak April 17, 2023 6:26pm Advance Directives Yes June 6:40am Living Will Yes April 17, 023 6:26pm Power of Drug Discovery Informatics Specialist Yes April 17, 2023 6:26pm Advance Directive Response Recorded Date/ Time Name of Medical Power of Drug Discovery Informatics Specialist kristian martin April 17, 2023 10:31pm Advance Directives Yes June 6:40am Living Will Yes April 17, 023 10:31pm Power of Drug Discovery Informatics Specialist Yes April 17, 2023 10:31pm Reason for Referral Specialty Diagnoses / Procedures Referred By Contac t Referred To Contact General Surgery Diagnoses Breast lesion on mammography Procedures CONSULT TO GENERAL SURGERY OFFICE/OUTPATIENT [facility] MDM 60-74 MINUTES Adriane Muhammad PA-C [address] [place] [address] Referral ID Status Reason Start Date Expiration Date Visits Requested Visits Authorized [id number] Authorized PCP Requested Referral 03/20/2023 1 1 Specialty Diagnoses / Procedures Referred By Contac t Referred To Contact [facility] Diagnoses Ataxia Procedures CONSULT TO PHYSICAL THERAPY PHYSICAL THERAPY EVALUATION HIGH COMPLEX 45 MINS Ethan Donald MD [address] [place] [address] [facility] [place] [address] [place] [address] Referral ID Status Reason Start Date Expiration Date Visits Requested Visits Authorized [id number] Pending Review Auto-Generat ed Referral 05/27/2024 05/27/2025 1 1 Health Concerns Infection Onset Date Last Indicated Resolved Time COVID-19 Rule-Out 05/03/2022 05/03/2022 05/03/2022 6:59 PM EST Summary Purpose Additional Source Comments Goals (unrecognized section and content) Goals may be documented in a n alternate sectionGoals may be documented in an alternate sectionGoals may be documented in an alternate sectionGoals may be documented in an alternate section Source Comments (unrecognize d section and content) In the event this informatio n is protected by the Federal Confidentiality of Alcohol and Drug Abuse Patient Records regulations: The Federal rules restrict any use of the information to criminally investigate or prosecute any alcohol or drug abuse patient.[facility] the event this information is protected by the Federal Confidentiality of Alcohol and Drug Abuse Patient Records regulations: The Federal rules restrict any use of the information to criminally investigate or prosecute any alcohol or drug abuse patient.[facility] the event this information is protected by the Federal Confidentiality of Alcohol and Drug Abuse Patient Records regulations: The Federal rules restrict any use of the information to criminally investigate or prosecute any alcohol or drug abuse patient.[facility] the event this information is protected by the Federal Confidentiality of Alcohol and Drug Abuse Patient Records regulations: The Federal rules restrict any use of the information to criminally investigate or prosecute any alcohol or drug abuse patient.[facility] the event this information is protected by the Federal Confidentiality of Alcohol and Drug Abuse Patient Records regulations: The Federal rules restrict any use of the information to criminally investigate or prosecute any alcohol or drug abuse patient.[facility] the event this information is protected by the Federal Confidentiality of Alcohol and Drug Abuse Patient Records regulations: The Federal rules restrict any use of the information to criminally investigate or prosecute any alcohol or drug abuse patient.[facility] the event this information is protected by the Federal Confidentiality of Alcohol and Drug Abuse Patient Records regulations: The Federal rules restrict any use of the information to criminally investigate or prosecute any alcohol or drug abuse patient.[facility] the event this information is protected by the Federal Confidentiality of Alcohol and Drug Abuse Patient Records regulations: The Federal rules restrict any use of the information to criminally investigate or prosecute any alcohol or drug abuse patient.[facility]In the event this information is protected by the Federal Confidentiality of Alcohol and Drug Abuse Patient Records regulations: The Federal rules restrict any use of the information to criminally investigate or prosecute any alcohol or drug abuse patient.[facility] the event this information is protected by the Federal Confidentiality of Alcohol and Drug Abuse Patient Records regulations: The Federal rules restrict any use of the information to criminally investigate or prosecute any alcohol or drug abuse patient.[facility]In the event this information is protected by the Federal Confidentiality of Alcohol and Drug Abuse Patient Records regulations: The Federal rules restrict any use of the information to criminally investigate or prosecute any alcohol or drug abuse patient.[facility]In the event this information is protected by the Federal Confidentiality of Alcohol and Drug Abuse Patient Records regulations: The Federal rules restrict any use of the information to criminally investigate or prosecute any alcohol or drug abuse patient.[facility]In the event this information is protected by the Federal Confidentiality of Alcohol and Drug Abuse Patient Records regulations: The Federal rules restrict any use of the information to criminally investigate or prosecute any alcohol or drug abuse patient.[facility]In the event this information is protected by the Federal Confidentiality of Alcohol and Drug Abuse Patient Records regulations: The Federal rules restrict any use of the information to criminally investigate or prosecute any alcohol or drug abuse patient.[facility]In the event this information is protected by the Federal Confidentiality of Alcohol and Drug Abuse Patient Records regulations: The Federal rules restrict any use of the information to criminally investigate or prosecute any alcohol or drug abuse patient.[facility] the event this information is protected by the Federal Confidentiality of Alcohol and Drug Abuse Patient Records regulations: The Federal rules restrict any use of the information to criminally investigate or prosecute any alcohol or drug abuse patient.[facility] the event this information is protected by the Federal Confidentiality of Alcohol and Drug Abuse Patient Records regulations: The Federal rules restrict any use of the information to criminally investigate or prosecute any alcohol or drug abuse patient.[facility]In the event this information is protected by the Federal Confidentiality of Alcohol and Drug Abuse Patient Records regulations: The Federal rules restrict any use of the information to criminally investigate or prosecute any alcohol or drug abuse patient.[facility]In the event this information is protected by the Federal Confidentiality of Alcohol and Drug Abuse Patient Records regulations: The Federal rules restrict any use of the information to criminally investigate or prosecute any alcohol or drug abuse patient.[facility]In the event this information is protected by the Federal Confidentiality of Alcohol and Drug Abuse Patient Records regulations: The Federal rules restrict any use of the information to criminally investigate or prosecute any alcohol or drug abuse patient.[facility]In the event this information is protected by the Federal Confidentiality of Alcohol and Drug Abuse Patient Records regulations: The Federal rules restrict any use of the information to criminally investigate or prosecute any alcohol or drug abuse patient.[facility]In the event this information is protected by the Federal Confidentiality of Alcohol and Drug Abuse Patient Records regulations: The Federal rules restrict any use of the information to criminally investigate or prosecute any alcohol or drug abuse patient.[facility]In the event this information is protected by the Federal Confidentiality of Alcohol and Drug Abuse Patient Records regulations: The Federal rules restrict any use of the information to criminally investigate or prosecute any alcohol or drug abuse patient.[facility]In the event this information is protected by the Federal Confidentiality of Alcohol and Drug Abuse Patient Records regulations: The Federal rules restrict any use of the information to criminally investigate or prosecute any alcohol or drug abuse patient.[facility]In the event this information is protected by the Federal Confidentiality of Alcohol and Drug Abuse Patient Records regulations: The Federal rules restrict any use of the information to criminally investigate or prosecute any alcohol or drug abuse patient.[facility]In the event this information is protected by the Federal Confidentiality of Alcohol and Drug Abuse Patient Records regulations: The Federal rules restrict any use of the information to criminally investigate or prosecute any alcohol or drug abuse patient.[facility]In the event this information is protected by the Federal Confidentiality of Alcohol and Drug Abuse Patient Records regulations: The Federal rules restrict any use of the information to criminally investigate or prosecute any alcohol or drug abuse patient.[facility]In the event this information is protected by the Federal Confidentiality of Alcohol and Drug Abuse Patient Records regulations: The Federal rules restrict any use of the information to criminally investigate or prosecute any alcohol or drug abuse patient.[facility]In the event this information is protected by the Federal Confidentiality of Alcohol and Drug Abuse Patient Records regulations: The Federal rules restrict any use of the information to criminally investigate or prosecute any alcohol or drug abuse patient.[facility]In the event this information is protected by the Federal Confidentiality of Alcohol and Drug Abuse Patient Records regulations: The Federal rules restrict any use of the information to criminally investigate or prosecute any alcohol or drug abuse patient.[facility]In the event this information is protected by the Federal Confidentiality of Alcohol and Drug Abuse Patient Records regulations: The Federal rules restrict any use of the information to criminally investigate or prosecute any alcohol or drug abuse patient.[facility]In the event this information is protected by the Federal Confidentiality of Alcohol and Drug Abuse Patient Records regulations: The Federal rules restrict any use of the information to criminally investigate or prosecute any alcohol or drug abuse patient.[facility]In the event this information is protected by the Federal Confidentiality of Alcohol and Drug Abuse Patient Records regulations: The Federal rules restrict any use of the information to criminally investigate or prosecute any alcohol or drug abuse patient.[facility]In the event this information is protected by the Federal Confidentiality of Alcohol and Drug Abuse Patient Records regulations: The Federal rules restrict any use of the information to criminally investigate or prosecute any alcohol or drug abuse patient.[facility]In the event this information is protected by the Federal Confidentiality of Alcohol and Drug Abuse Patient Records regulations: The Federal rules restrict any use of the information to criminally investigate or prosecute any alcohol or drug abuse patient.[facility]In the event this information is protected by the Federal Confidentiality of Alcohol and Drug Abuse Patient Records regulations: The Federal rules restrict any use of the information to criminally investigate or prosecute any alcohol or drug abuse patient.[facility]In the event this information is protected by the Federal Confidentiality of Alcohol and Drug Abuse Patient Records regulations: The Federal rules restrict any use of the information to criminally investigate or prosecute any alcohol or drug abuse patient.[facility]In the event this information is protected by the Federal Confidentiality of Alcohol and Drug Abuse Patient Records regulations: The Federal rules restrict any use of the information to criminally investigate or prosecute any alcohol or drug abuse patient.[facility]In the event this information is protected by the Federal Confidentiality of Alcohol and Drug Abuse Patient Records regulations: The Federal rules restrict any use of the information to criminally investigate or prosecute any alcohol or drug abuse patient.[facility]In the event this information is protected by the Federal Confidentiality of Alcohol and Drug Abuse Patient Records regulations: The Federal rules restrict any use of the information to criminally investigate or prosecute any alcohol or drug abuse patient.[facility]In the event this information is protected by the Federal Confidentiality of Alcohol and Drug Abuse Patient Records regulations: The Federal rules restrict any use of the information to criminally investigate or prosecute any alcohol or drug abuse patient.[facility]In the event this information is protected by the Federal Confidentiality of Alcohol and Drug Abuse Patient Records regulations: The Federal rules restrict any use of the information to criminally investigate or prosecute any alcohol or drug abuse patient.[facility]In the event this information is protected by the Federal Confidentiality of Alcohol and Drug Abuse Patient Records regulations: The Federal rules restrict any use of the information to criminally investigate or prosecute any alcohol or drug abuse patient.[facility]In the event this information is protected by the Federal Confidentiality of Alcohol and Drug Abuse Patient Records regulations: The Federal rules restrict any use of the information to criminally investigate or prosecute any alcohol or drug abuse patient.[facility]In the event this information is protected by the Federal Confidentiality of Alcohol and Drug Abuse Patient Records regulations: The Federal rules restrict any use of the information to criminally investigate or prosecute any alcohol or drug abuse patient.[facility]In the event this information is protected by the Federal Confidentiality of Alcohol and Drug Abuse Patient Records regulations: The Federal rules restrict any use of the information to criminally investigate or prosecute any alcohol or drug abuse patient.[facility] Reason for Visit (unrecogniz ed section and content) Reason Onset Date Comments Refill Request 02/10/2022 Reason Comments ER F/U 1 night ER stay at [facility] due to extreme sweating and dizziness. Cardiac workup with head CT. Still c/o intermittent sweating and dizziness Reason Comments Results Reason Comments Results Reason Comments Consult Abnormal mammogram Reason Comments Follow Up Left Breast patholog y Reason Comments Patient Update Reason Comments Request for outside medical records Last office visit Reason Comments Results PET scan images Reason Onset Date Comments Transition Of Care 05/05/2022 [facility] Hospital Discharge Follow up 05/04/22 Reason Comments Post Op Follow Up Follow up lumpectomy , left breast Reason Comments Patient Question Reason Comments Follow Up Wound check Reason Comments Follow Up REMOVAL OF LEON Reason Comments Appointment Reason Comments Orders Patient Question Reason Comments Follow Up Left breast partial mastectomy Reason Comments fax lab work orders to [facility] lab Reason Comments 6 Month Exam Reason Comments Patient Update tamoxifen Reason Comments Orders Reason Comments Lab Orders Reason Comments Follow Up Reason Comments Chest Congestion cough, fatigue, low grade fever x 3 weeks Reason Comments Post Op Follow Up S/P partial mastecto my Reason Comments Patient concern Reason Comments Burn Skin burn mid left b ack, possibly due to heating pad Reason Comments Recheck 1 week wound check Reason Comments 1 week wound check Reason Comments 6 Month Exam Reason Comments Medicare Wellness Exam Care Teams (unrecognized sec tion and content) Orthopedic Shoe Maker Relationship Specialty Start Date End Date Ethan Donald MD [address] [place], [place] [id number] PCP - General Family Medicine 01/05/21 Orthopedic Shoe Maker Relationship Specialty Start Date End Date Ethan Donald MD [address] [place], [place] [id number] PCP - General Family Medicine 01/05/21 Orthopedic Shoe Maker Relationship Specialty Start Date End Date Ethan Donald MD [address] [place], [place] [id number] PCP - General Family Medicine 01/05/21 Orthopedic Shoe Maker Relationship Specialty Start Date End Date Ethan Donald MD [address] [place], [place] [id number] PCP - General Family Medicine 01/05/21 Orthopedic Shoe Maker Relationship Specialty Start Date End Date Ethan Donald MD [address] [facility] [place] [address] PCP - General Family Medicine 01/05/21 Orthopedic Shoe Maker Relationship Specialty Start Date End Date Ethan Donald MD [address] [facility] [place] [address] PCP - General Family Medicine 01/05/21 Orthopedic Shoe Maker Relationship Specialty Start Date End Date Ethan Donald MD [address] [facility] [place] [address] PCP - General Family Medicine 01/05/21 Orthopedic Shoe Maker Relationship Specialty Start Date End Date Ethan Donald MD [address] [facility] [place] [address] PCP - General Family Medicine 01/05/21 Orthopedic Shoe Maker Relationship Specialty Start Date End Date Ethan Donald MD [address] [facility] [place] [address] PCP - General Family Medicine 01/05/21 Orthopedic Shoe Maker Relationship Specialty Start Date End Date Ethan Donald MD [address] [facility] [place] [address] PCP - General Family Medicine 01/05/21 Orthopedic Shoe Maker Relationship Specialty Start Date End Date Ethan Donald MD [address] [facility] [place] [address] PCP - General Family Medicine 01/05/21 Orthopedic Shoe Maker Relationship Specialty Start Date End Date Ethan Donald MD [address] [facility] [place] [address] PCP - General Family Medicine 01/05/21 Orthopedic Shoe Maker Relationship Specialty Start Date End Date Ethan Donald MD [address] [place] [address] PCP - General Family Medicine 01/05/21 Orthopedic Shoe Maker Relationship Specialty Start Date End Date Ethan Donald MD [address] [place] [address] PCP - General Family Medicine 01/05/21 Team Status: Active Member Role Status Dates Dr. Jimbo Koch III, MD Family Provider Active Dr. Ethan Donald MD Primary Care Provider Active Team Status: Inactive Member Role Status Dates Dr. Ethan Donald MD Primary Care Provider, Referring Provider Active Nani Quesada INFORMATION MANAGEMENT MANAGER, INFORMATION MANAGEMENT MANAGER-C Attending Provider Active Team Status: Inactive Member Role Status Dates Dr. Ethan Donald MD Primary Care Provider Active Dr. Chino Ambrose MD Attending Provider, Referring Provider Active Team Status: Inactive Member Role Status Dates Dr. Ethan Donald MD Primary Care Provi dioni, Attending Provider, Referring Provider Active Orthopedic Shoe Maker Relationship Specialty Start Date End Date Ethan Donald MD [address] [place] [address] PCP - General Family Medicine 01/05/21 Orthopedic Shoe Maker Relationship Specialty Start Date End Date Ethan Donald MD [address] [place] [address] PCP - General Family Medicine 01/05/21 Orthopedic Shoe Maker Relationship Specialty Start Date End Date Ethan Donald MD [address] [place] [address] PCP - General Family Medicine 01/05/21 Orthopedic Shoe Maker Relationship Specialty Start Date End Date Ethan Donald MD [address] [place] [address] PCP - General Family Medicine 01/05/21 Orthopedic Shoe Maker Relationship Specialty Start Date End Date Ethan Donald MD [address] [place] [address] PCP - General Family Medicine 01/05/21 Orthopedic Shoe Maker Relationship Specialty Start Date End Date Ethan Donald MD [address] [place] [address] PCP - General Family Medicine 01/05/21 Orthopedic Shoe Maker Relationship Specialty Start Date End Date Ethan Donald MD [address] [place] [address] PCP - General Family Medicine 01/05/21 Orthopedic Shoe Maker Relationship Specialty Start Date End Date Ethan Donald MD [address] [place] [address] PCP - General Family Medicine 01/05/21 Orthopedic Shoe Maker Relationship Specialty Start Date End Date Ethan Donald MD [address] [place] [address] PCP - General Family Medicine 01/05/21 Team Status: Inactive Member Role Status Dates Dr. Ethan Donald MD Primary Care Provider, Referring Provider Active Dr. Boyd Monsalve MD Attending Provider Active Team Status: Active Member Role Status Dates Dr. Ethan Donald MD Primary Care Provider Active Dr. Deon Dickerson MD Emergency Provider Active Dr. Koby Ochoa DO Admit Provider, At tending Provider, Other Provider Active Team Status: Active Member Role Status Dates Dr. Ethan Donald MD Primary Care Provider Active Dr. Deon Dickerson MD Emergency Provider Active Dr. Koby Ochoa DO Admit Provider, Attending Provid er Active Dr. Abdirashid Pinto , Other Provider Active Team Status: Active Member Role Status Dates Dr. Ethan Donald MD Primary Care Provider Active Dr. Deon Dickerson MD Emergency Provider Active Dr. Koby Ochoa DO Admit Provider, Other Provider A ctive Dr. Abdirashid Pinto , DO Other Provider Active Dr. Sarah Marie MD Attending Provider, Other Provid er Active Team Status: Active Member Role Status Dates Dr. Ethan Donald MD Primary Care Provider Active Dr. Deon Dickerson MD Emergency Provider Active Dr. Koby Ochoa DO Admit Provider, Other Provider A ctive Dr. Abdirashid Pinto , DO Attending Provider, Other Prov ider Active Dr. Sarah Marie MD Other Provider Active Team Status: Active Member Role Status Dates Dr. Ethan Donald MD Primary Care Provider Active Dr. Boyd Monsalve MD Attending Provider Active Team Status: Active Member Role Status Dates Dr. Ethan Donald MD Primary Care Provider Active Dr. Deon Dickerson MD Emergency Provider Active Dr. Koby Ochoa DO Admit Provider, Other Provider A ctive Dr. Abdirashid Pinto , Other Provider Active Dr. Rene Kim MD Attending Provider, Other Provid er Active Dr. Sarah Marie MD Other Provider Active Team Status: Inactive Member Role Status Dates Dr. Ethan Donald MD Primary Care Provider Active Dr. Deon Dickerson MD Emergency Provider Active Dr. Koby Ochoa DO Admit Provider, Other Provider A ctive Dr. Abdirashid Pinto , Other Provider Active Dr. Rene Kim MD Attending Provider Active Dr. Sarah Marie MD Other Provider Active Orthopedic Shoe Maker Relationship Specialty Start Date End Date Ethan Donald MD [address] [place] [address] PCP - General Family Medicine 01/05/21 Orthopedic Shoe Maker Relationship Specialty Start Date End Date Ethan Donald MD [address] [place], [place] [address] PCP - General Family Medicine 01/05/21 Orthopedic Shoe Maker Relationship Specialty Start Date End Date Ethan Donald MD [address] [place], [place] [id number] PCP - General Family Medicine 01/05/21 Orthopedic Shoe Maker Relationship Specialty Start Date End Date Ethan Donald MD [address] [place], [place] [address] PCP - General Family Medicine 01/05/21 Orthopedic Shoe Maker Relationship Specialty Start Date End Date Ethan Donald MD [address] [place] [address] PCP - General Family Medicine 01/05/21 Orthopedic Shoe Maker Relationship Specialty Start Date End Date Ethan Donald MD [address] [place] [address] PCP - General Family Medicine 01/05/21 Orthopedic Shoe Maker Relationship Specialty Start Date End Date Ethan Donald MD [address] [place] [address] PCP - General Family Medicine 01/05/21 Love Concepcion APRN.PILOT PLANT TECHNICIAN [address] [place] [address] [facility] 04/28/24 Jenny Hart APRN.PILOT PLANT TECHNICIAN [address] [place] [address] [facility] 04/28/24 Orthopedic Shoe Maker Relationship Specialty Start Date End Date Ethan Donald MD [address] [place] [address] PCP - General Family Medicine 01/05/21 Love Concepcion SAFETY COUNSELOR.PILOT PLANT TECHNICIAN [address] [place] [address] [facility] 04/28/24 Jenny Hart SAFETY COUNSELOR.PILOT PLANT TECHNICIAN [address] [place] [address] [facility] 04/28/24 Orthopedic Shoe Maker Relationship Specialty Start Date End Date Ethan Donald MD [address] [place], [place] [id number] PCP - General Family Medicine 01/05/21 Love Concepcion, SAFETY COUNSELOR.PILOT PLANT TECHNICIAN [address] [place], [place] [address] [facility] 04/28/24 Jenny Hart SAFETY COUNSELOR.PILOT PLANT TECHNICIAN [address] [place], [place] [address] [facility] 04/28/24 Orthopedic Shoe Maker Relationship Specialty Start Date End Date Ethan Donald MD [address] [place] [address] PCP - General [facility] Medicine 01/05/21 Love Concepcion SAFETY COUNSELOR.PILOT PLANT TECHNICIAN [address] [place], [place] [address] [facility] 04/28/24 Jenny Hart SAFETY COUNSELOR.PILOT PLANT TECHNICIAN [address] [place] [address] [facility] 04/28/24 INFORMATION SOURCE (unrecogn ized section and content) DATE CREATED AUTHOR 05/13/2022 [facility] DATE CREATED AUTHOR AUTHOR'S ORGANIZ ATION 08/28/2024 [facility] DATE CREATED AUTHOR AUTHOR'S ORGANIZ ATION 12/03/2024 [facility] FOR RECORDS PERTAINING TO PATIENTS WHO ARE OR HAVE BEEN ENROLLED IN A CHEMICAL DEPENDENCY/SUBSTANCEABUSE PROGRAM, SOME INFORMATION MAY BE OMITTED. This clinical summary was aggregated from multiple sources. Caution should be exercised in using it in the provision of clinical care. This summary normalizes information from multiple sources, and as a consequence, information in this document may materially change the coding, format and clinical context of patient data. In addition, data may be omitted in some cases. CLINICAL DECISIONS SHOULD BE BASED ON THE PRIMARY CLINICAL RECORDS. [facility]. provides no warranty or guarantee of the accuracy or completeness of information in this document.
--- NOTE | 2025-04-24 17:54 | CM.ED ---
Social work Reason for referral: resources Referral source: Dr Ruthie Hendricks approached SW stating patient's need for a medical alert button. SW entered patient's room, introducing self and role at [facility]. Patient's son, grandson, and sister were bedside. SW provided [facility] Auxiliary medical alert button brochure, as well as discussed alternative options for a minimal cost in comparison to an ED presentation. Patient and family thanked SW and patient's son stated intent to also get a ramp built for patient. Patient denied needing this and patient's family stated discussing it at a later point. Patient and family denied further needs at this time. Maria Eugenia Hale, [employer] OPERATOR HELPER, SILK SCREEN PRINTER MACHINE
[2025-04-24 17:57] VITALS: BP 138/70; PULSE 88; RESP 16; TEMP 36.6; O2SAT 99
== END 2025-04-24 17:58 | disposition home or self-care (01) ==
PROVIDERS: Emergency Provider Emergency Medicine; PCP Family Medicine; Visit Provider Emergency Medicine
DX: S70.02XA Contusion of left hip, initial encounter (principal); I11.0 Hypertensive heart disease with heart failure; I50.32 Chronic diastolic (congestive) heart failure; G47.33 Obstructive sleep apnea (adult) (pediatric); W19.XXXA Unspecified fall, initial encounter
CPT/HCPCS: 72170; 73590; 73630; 99283